=== PATIENT | female | born 1940 | race Caucasian/White ===

== ENCOUNTER → 2023-04-02 11:20 | Outpatient (CLI) | payer MEDICARE, BC, SELFPAY ==
--- NOTE | ~2023-04-02 | CT_ITS ---
CT Scan of the Chest without Contrast: Clinical Indication: Pulmonary nodules Technique: Contiguous sections were acquired throughout the chest without intravenous contrast. Dose reduction technique was used on this scan by utilizing automated exposure control and iterative recon struction technique. The dose-length product (DLP) was 171.28 mGy-cm. Findings: There is no evidence of any significant mediastinal, hilar or axillary lymphadenopathy. There are ath erosclerotic ossifications of the aorta and coronary arteries. Small pericardial effusion present. No pleural effusions. There are multiple right apical pulmonary nodules, measuring up to 6 mm in diameter. There are severa l tiny left apical pulmonary nodules. There is mild bibasilar chronic interstitial change. Images through the upper abdomen reveal no abnormalities. There are compression fracture deformity is of T4, T7, and T11. Impression: Multiple biapical pulmonary nodules, right more numerous and larger than left, with largest nodule me asuring approximately 6 mm in diameter. Comparison with any prior exams would be useful to assess for chronicity of these nodules. Otherwise, according to Fleischner Society criteria, for a low-risk pat ient, recommend follow-up CT scan at 3-6 months, then consider additional 18-[address] For a high- risk patient, follow-up CT scans at 3-6 months, and at 18-24 months, are recommended. Compression fractures of T4, T7, and T11, age-indeterminate. Small pericardial effusion. Mild bibasilar chronic interstitial change. Reviewed, dictated and finalized at [facility]. [employer] Impression: Multiple biapical pulmonary nodules, right more numerous and larger than left, with largest nodule measuring approximately 6 mm in diameter. Comparison with a ny prior exams would be useful to assess for chronicity of these nodules. Other carter, according to Fleischner Society criteria, for a low-risk patient, recomme nd follow-up CT scan at 3-6 months, then consider additional 18-[address] Fo r a high-risk patient, follow-up CT scans at 3-6 months, and at 18-24 months, a re recommended. Compression fractures of T4, T7, and T11, age-indeterminate. Small pericardial effusion. Mild bibasilar chronic interstitial change.
== END ==
PROVIDERS: PCP Nurse Practitioner Family; Visit Provider Nurse Practitioner Family
DX: R91.8 Other nonspecific abnormal finding of lung field (principal); I31.39 Other pericardial effusion (noninflammatory); J84.9 Interstitial pulmonary disease, unspecified
CPT/HCPCS: 71250

== ENCOUNTER 2023-05-04 10:55 | Emergency (ER) | payer MEDICARE, BC, SELFPAY ==
--- NOTE | ~2023-05-04 | XR_ITS ---
EXAMINATION: XR shoulder LT min 2V INDICATION: Left shoulder pain, fall one month ago TECHNIQUE: Four views of the left shoulder are submitted. COMPARISON: None FINDINGS: Normal alignment. No fracture. 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 Soft tissues are unremarkable. IMPRESSION: 1. No acute osseous abnormality. Reviewed, dictated and finalized at location B. 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
[2023-05-04 11:27] VITALS: BP 107/93; PULSE 108; RESP 18; TEMP 36.3; O2SAT 100
--- NOTE | 2023-05-04 11:56 | ED.UPPEXIN ---
HPI - Extremity Injury (Upper) General Chief Complaint: Extremity Injury, Upper Stated Complaint: upper extremity pain/fall 1mo ago Time Seen by Provider: 05/04/23 11:46 Source: patient and RN notes reviewed Mode of arrival: wheelchair Limitations: no limitations History of Present Illness HPI narrative: Patient presents today complaining of left shoulder pain x1 month. Patient fall 1 month ago injuring her shoulder. Denies numbness or tingling. Reports radiation of pain at times down to her elbow. She also reports decreased sleep due to the pain. Currently rates her pain 10/25 and has been taking Tylenol without much relief. Related Data Home Medications Medication Instructions Recorded Confirmed clonidine HCl 0.1 mg tablet mg 05/04/23 clonidine HCl 0.2 mg tablet mg 05/04/23 furosemide 40 mg tablet mg 05/04/23 gabapentin 300 mg capsule mg 05/04/23 insulin glargine 100 unit/mL unit subcut 05/04/23 subcutaneous solution (Lantus U-100 Insulin) insulin regular hum U-500 conc 500 unit subcut 05/04/23 unit/mL(3 mL) subcut pen (Humulin R U-500 (Conc) Insulin Kwikpen) labetalol 200 mg tablet mg 05/04/23 omeprazole 20 mg capsule,delayed mg 05/04/23 release omeprazole 20 mg capsule,delayed mg 05/04/23 release ropinirole 0.25 mg tablet mg 05/04/23 rosuvastatin 10 mg tablet mg 05/04/23 semaglutide 1 mg/dose (4 mg/3 mL) mg subcut 05/04/23 subcutaneous pen injector (Ozempic) sertraline 50 mg tablet mg 05/04/23 simvastatin 10 mg tablet mg 05/04/23 spironolactone 25 mg tablet mg 05/04/23 Allergies Allergy/AdvReac Type Severity Reaction Status Date / Time codeine Allergy Mild Unknown Verified 05/04/23 11:51 Penicillins Allergy Mild Unknown Verified 05/04/23 11:51 Review of Systems Review of Systems: CONSTITUTIONAL: Denies body aches, fever, chills, or sweats. EYES: Denies visual changes, redness, or discharge. ENT: Denies rhinorrhea, congestion, sore throat, or otalgia. CARDIOVASCULAR: Denies chest pain, palpitations, or edema. RESPIRATORY: Denies cough or dyspnea. GASTROINTESTINAL: Denies abdominal pain, nausea, vomiting, or diarrhea. GENITOURINARY: Denies dysuria or hematuria. SKIN: Denies rash, itching, or wounds. MUSCULOSKELETAL: Denies back pain, or myalgia.+ left shoulder pain NEUROLOGIC: Denies headache, numbness, tingling, or weakness. PSYCH: Denies depression or anxiety. [facility] Past Medical History Medical History (Updated 05/04/23 @ 12:29 by Minoo Ching, [facility], ) Diabetes High cholesterol Spinal cord stimulator status Comments At time of signature, I have reviewed and agree with nursing past medical, surgical, social and family history unless otherwise noted. Please see nursing chart for further information. There is no relevant family history pertinent to the presenting complaint Exam Narrative: GENERAL: Well-appearing, well-nourished, and in no acute distress. HEAD: Normocephalic, atraumatic. EYES: EOMI. No redness or drainage. Conjunctivae normal. ENT: Mucous membranes pink and moist. NECK: Normal AROM. CHEST: No respiratory distress. EXTREMITIES: Left shoulder: Tenderness anteriorly, posteriorly, and laterally without edema noted. No erythema or ecchymosis noted. No obvious deformity noted. Some mild tenderness extends distally down to mid humerus. Patient has range of motion to 90? anteriorly and laterally. Distal sensation intact. Capillary refill normal. Radial pulse normal. SKIN: Warm, dry, no rash. Capillary refill normal. Normal skin turgor. NEURO: No focal deficits. Alert and oriented x3. Gait steady. PSYCH: Normal affect. No signs of depression or anxiety. Course Course Level of Care: Express Care Visit Vital Signs Vital signs: Vital Signs Temperature 97.4 F L 05/04/23 11:27 Pulse Rate 108 H 05/04/23 11:27 Respiratory Rate 18 05/04/23 11:27 Blood Pressure 107/93 H 05/04/23 11:27 Pulse Oximetry 100
== END 2023-05-04 12:27 | disposition home or self-care (01) ==
PROVIDERS: Emergency Provider Nurse Practitioner; PCP Nurse Practitioner Family
DX: S49.92XA Unspecified injury of left shoulder and upper arm, initial encounter (principal); E11.9 Type 2 diabetes mellitus without complications; Z79.899 Other long term (current) drug therapy; Z79.4 Long term (current) use of insulin; W19.XXXA Unspecified fall, initial encounter
CPT/HCPCS: 73030; 99213; G0463

== ENCOUNTER 2023-06-30 13:05 | Outpatient (CLI) | payer MEDICARE, BC, SELFPAY ==
--- NOTE | ~2023-06-30 | US_ITS ---
EXAMINATION: US renal BI DATE: 06/30/2023 INDICATION: Stage III B chronic kidney disease TECHNIQUE: Multiple ultrasound grayscale images of the kidneys were obtained. COMPARISON: None. FINDINGS: The right kidney measures 10.4 x 4.7 x 5.4 cm. The left kidney measures cm. The kidneys demonstrate n ormal echogenicity. There is no hydronephrosis in either kidney. No stones identified. The bladder i s normal with bilateral ureteral jets visualized on color Doppler. IMPRESSION: 1. Normal kidneys without hydronephrosis. Reviewed, dictated and finalized at location A. 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
== END 2023-06-30 13:06 | disposition home or self-care (01) ==
LOC: ANHIMG 13:10
PROVIDERS: Visit Provider Internal Medicine Nephrology
DX: I12.9 Hypertensive chronic kidney disease with stage 1 through stage 4 chronic kidney disease, or unspecified chronic kidney disease (principal); N18.32 Chronic kidney disease, stage 3b; E11.9 Type 2 diabetes mellitus without complications; E78.5 Hyperlipidemia, unspecified
CPT/HCPCS: 76775

== ENCOUNTER 2023-09-26 17:30 | Emergency (ER) | payer MEDICARE, BC, SELFPAY ==
[2023-09-26 17:43] VITALS: BP 164/72; PULSE 101; RESP 18; TEMP 36.1; O2SAT 98
--- NOTE | 2023-09-26 18:02 | ED.WOUNDLAC ---
HPI - Wound/Laceration General Chief Complaint: Wound/Laceration Stated Complaint: surgical wound check Source: patient and family (daughter ) Mode of arrival: wheelchair Limitations: no limitations History of Present Illness HPI narrative: 83-year-old female presents to Express Care accompanied by her daughter for complaints of possible infection to a postsurgical site to right lower leg. Patient reports that she had a basal cell carcinoma removed from her right lower leg 4 days ago. Patient reports that 2 days ago she started noticing minimal redness from the area. Patient reports that she has been applying [id number] Neosporin ointment with little relief. Daughter reports that patient is not scheduled for a follow-up appointment with the surgeon. Patient denies fever, body aches, chills, nausea vomiting or diarrhea. Onset (ago): day(s) (2) Extremity Location: Right: lower leg Related Data Home Medications Medication Instructions Recorded Confirmed clonidine HCl 0.2 mg tablet mg 05/04/23 06/11/23 furosemide 40 mg tablet mg 05/04/23 06/11/23 gabapentin 300 mg capsule mg 05/04/23 06/11/23 insulin regular hum U-500 conc 500 unit subcut 05/04/23 06/11/23 unit/mL(3 mL) subcut pen (Humulin R U-500 (Conc) Insulin Kwikpen) labetalol 200 mg tablet mg 05/04/23 06/11/23 omeprazole 20 mg capsule,delayed mg 05/04/23 06/11/23 release ropinirole 0.25 mg tablet mg 05/04/23 06/11/23 rosuvastatin 10 mg tablet mg 05/04/23 06/11/23 semaglutide 1 mg/dose (4 mg/3 mL) mg subcut 05/04/23 06/11/23 subcutaneous pen injector (Ozempic) sertraline 50 mg tablet mg 05/04/23 06/11/23 simvastatin 10 mg tablet mg 05/04/23 06/11/23 spironolactone 25 mg tablet mg 05/04/23 06/11/23 Allergies Allergy/AdvReac Type Severity Reaction Status Date / Time codeine Allergy Mild Unknown Verified 06/10/23 14:47 Penicillins Allergy Mild Unknown Verified 06/10/23 14:47 morphine Allergy Hives Verified 09/26/23 17:47 Review of Systems Constitutional: Constitutional: Denies chills, Denies fatigue, Denies fever(s) and Denies weakness Cardiovascular: Cardiovascular: Denies chest pain Respiratory: Respiratory: Denies cough, Denies dyspnea and Denies wheezing Gastrointestinal: Gastrointestinal: Denies diarrhea, Denies nausea and Denies vomiting Integumentary/Breasts: Skin/Breast: Denies pruritus, Reports erythema, Denies rash and Denies skin ulcer Comments: Healing wound to right lower leg [facility] Past Medical History Medical History Diabetes High cholesterol Spinal cord stimulator status Social History Social History Smoking status: Never smoker Alcohol intake: unknown Substance use: unknown Do You Feel Safe in your Home?: Yes Lack of Transportation: No Lack of Food: Never True Concerned About Future Housing: No Difficulty Paying Gas/Electric Bills: No Difficulty Paying for Meds: No Currently Unemployed: No Education: Grade School Difficulty w/ Childcare or Family Care: No Occupation/Education: retired Gender identity (if verbalized by the patient): Female Comments At time of signature, I agree with nursing past medical, surgical, social and family history. There is no relevant family history pertinent to the presenting complaint. Exam Const: General: healthy appearing and no acute distress Nutritional Appearance: well nourished Orientation/consciousness: patient oriented x3 Limitations: no limitations HENMT: Head: normal to inspection Eyes: Conjunctivae: conjunctivae normal Neck: Neck: normal visual inspection Resp: Effort & Inspection: normal respiratory effort and not labored Auscultation: clear to auscultation bilaterally, no crackles, no rales, no rhonchi and no wheezes Cardio: Rate: regular rate Rhythm: regular rhythm Heart sounds: no murmurs Skin: General skin exam: normal
== END 2023-09-26 18:14 | disposition home or self-care (01) ==
PROVIDERS: Emergency Provider Nurse Practitioner Family; PCP Nurse Practitioner Family
DX: L03.115 Cellulitis of right lower limb (principal); Z79.4 Long term (current) use of insulin; E11.9 Type 2 diabetes mellitus without complications; E78.00 Pure hypercholesterolemia, unspecified
CPT/HCPCS: 99213; G0463

== ENCOUNTER 2023-09-28 14:51 | Emergency (ER) | payer MEDICARE, BC, SELFPAY ==
--- NOTE | ~2023-09-28 | US_ITS ---
EXAMINATION: US venous doppler LE RT DATE: 09/28/2023 16:10 INDICATION: pain/swelling/redness R lower leg . TECHNIQUE: Grayscale images without and with compression and Doppler images of the right lower extrem ity veins were obtained. COMPARISON: 03/12/2014 FINDINGS: The right common femoral vein, profunda (deep) femoral vein, femoral vein, popliteal vein, peroneal v ein, posterior tibial veins, gastrocnemius vein, and greater saphenous vein are patent. IMPRESSION: Patent right lower extremity veins. No evidence of deep venous thrombosis. Reviewed, dictated and finalized at location K.
[2023-09-28 14:54] VITALS: BP 100/50; PULSE 98; RESP 14; TEMP 36.8; O2SAT 98
--- NOTE | 2023-09-28 15:22 | ED.WOUNDLAC ---
HPI - Wound/Laceration General Chief Complaint: Wound/Laceration <LAKHWINDER Miller Last Filed: 09/28/23 15:39> Stated Complaint: wound <LAKHWINDER Miller Last Filed: 09/28/23 15:39> Time Seen by Provider: 09/28/23 15:25 <LAKHWINDER Miller Last Filed: 09/28/23 15:39> Focused HPI: Patient is an 83-year-old female who presents the ED with report of concern for cellulitis to right lower leg. Patient underwent basal cell carcinoma excision last Thursday on her right forrest. She began noticing redness surrounding the wound last week. She was seen in urgent care on Thursday and started on Keflex for cellulitis. States the redness has continued to worsen, streak down her leg. The area has also been warm and tender. She notes some swelling in her right lower leg. Denies fevers. GENERAL: Elderly, well-nourished, and in no acute distress. HEAD: Normocephalic, atraumatic. CHEST: Clear to auscultation. ?No respiratory distress. HEART: Regular rate and rhythm.? Pedal pulse intact. SKIN: 3x3cm area of skin biopsy site on R lower anterior forrest. No drainage or purulent material. Erythema surrounding skin biopsy site with lymphangitic streaking down near ankle. Focal TTP. Sensation intact. MSK: Trace pitting edema to R lower leg. Mild tenderness in R posterior calf. NEURO: ?Alert and oriented x3. Patient screened in triage and initial orders placed.? ?Additional care and disposition to be based upon?diagnostic testing and treatment. <LAKHWINDER Miller Last Filed: 09/28/23 15:39> Source: patient <LAKHWINDER Miller Last Filed: 09/28/23 15:39> Mode of arrival: ambulatory <LAKHWINDER Miller Last Filed: 09/28/23 15:39> Limitations: no limitations <LAKHWINDER Miller Last Filed: 09/28/23 15:39> History of Present Illness HPI narrative: Agree with HPI. <Mickey Phillip MD - Last Filed: 09/28/23 16:56> Related Data Home Medications: Home Medications Medication Instructions Recorded Confirmed clonidine HCl 0.2 mg tablet mg 05/04/23 06/11/23 furosemide 40 mg tablet mg 05/04/23 06/11/23 gabapentin 300 mg capsule mg 05/04/23 06/11/23 insulin regular hum U-500 conc 500 unit subcut 05/04/23 06/11/23 unit/mL(3 mL) subcut pen (Humulin R U-500 (Conc) Insulin Kwikpen) labetalol 200 mg tablet mg 05/04/23 06/11/23 omeprazole 20 mg capsule,delayed mg 05/04/23 06/11/23 release ropinirole 0.25 mg tablet mg 05/04/23 06/11/23 rosuvastatin 10 mg tablet mg 05/04/23 06/11/23 semaglutide 1 mg/dose (4 mg/3 mL) mg subcut 05/04/23 06/11/23 subcutaneous pen injector (Ozempic) sertraline 50 mg tablet mg 05/04/23 06/11/23 simvastatin 10 mg tablet mg 05/04/23 06/11/23 spironolactone 25 mg tablet mg 05/04/23 06/11/23 <Berta Rosales PA-C - Last Filed: 09/28/23 15:39> Allergies/Adverse Reactions: Allergies Allergy/AdvReac Type Severity Reaction Status Date / Time codeine Allergy Mild Unknown Verified 09/28/23 16:51 Penicillins Allergy Mild Unknown Verified 09/28/23 16:51 morphine Allergy Hives Verified 09/28/23 16:51 <Berta Rosales PA-C - Last Filed: 09/28/23 15:39> Review of Systems Review of Systems: All systems reviewed & are unremarkable except as noted in HPI and below <Mickey Phillip MD - Last Filed: 09/28/23 16:56> Constitutional: Constitutional: Reports no additional constitutional complaints <Mickey Phillip MD - Last Filed: 09/28/23 16:56> Cardiovascular: Cardiovascular: Reports no additional cardiovascular complaints <Mickey Phillip MD - Last Filed: 09/28/23 16:56> Respiratory: Respiratory: Reports no additional respiratory complaints <Mickey Phillip MD - Last Filed: 09/28/23 16:56> Musculoskeletal: Musculoskeletal: Reports no additional musculoskeletal complaints <Mickey Phillip MD - Last Filed: 09/28/23 16:56> Integumentary/Breasts: Skin/Breast: Reports erythema,
[2023-09-28 15:47] LABS: Basophils Absolute Auto 0.1 K/mm3 (0.0-0.1); Basophils Percent Auto 0.6 % (0.2-1.2); Eosinophils Absolute Auto 0.2 K/mm3 (0-0.3); Eosinophils Percent Auto 2.3 % (0-4.4); Hematocrit 35.4 % (37.0-47.0); Hemoglobin 11.6 g/dL (12.0-15.0); Immature Granulocyte Absolute 0.09 K/mm3 (0.00-0.031); Lymphocytes Percent Auto 26.2 % (18.3-44.2); Mean Corpuscular HGB Conc 32.8 g/dl (32-36); Mean Corpuscular Hemoglobin 28.1 pg (26-34); Mean Corpuscular Volume 85.7 fl (80-100); Mean Platelet Volume 9.6 fl (7.4-10.4); Monocytes Absolute Auto 0.7 K/mm3 (0.1-0.6); Monocytes Percent Auto 7.6 % (2.6-8.5); Neutrophils Absolute Auto 5.5 K/mm3 (1.3-6.7); Neutrophils Percent Auto 62.3 % (45.5-73.1); Platelet Count Result 262 k/mm3 (150-375); Red Blood Count 4.13 M/mm3 (4.2-5.4); Red Cell Distribution Width 14.4 % (11.5-14.5); White Blood Count 8.8 K/mm3 (4.5-10.0)
[2023-09-28 15:58] LABS: Anion Gap 11 mmol/L (4-12); Blood Urea Nitrogen 28 mg/dL (7-17); Calcium 8.7 mg/dL (8.4-10.2); Carbon Dioxide 19 mmol/L (22-30); Chloride 109 mmol/L (98-107); Estimated CRCL calculation 26 ml/min; Estimated Glomerular Filt Rate 33; Glucose 155 mg/dL (65-110); Potassium 4.3 mmol/L (3.4-5.0); Sodium 139 mmol/L (137-145)
[2023-09-28 16:21] LABS: Erythrocyte Sedimentation Rate 57 mm/hr (0-20)
[2023-09-28 16:56] VITALS: BP 147/60; PULSE 90; RESP 16; O2SAT 99
== END 2023-09-28 17:36 | disposition home or self-care (01) ==
PROVIDERS: Physician Assistant; Emergency Provider Emergency Medicine; PCP Nurse Practitioner Family
DX: L03.115 Cellulitis of right lower limb (principal); E11.9 Type 2 diabetes mellitus without complications; E78.00 Pure hypercholesterolemia, unspecified; R22.41 Localized swelling, mass and lump, right lower limb; Z96.82 Presence of neurostimulator; Z79.85 Long-term (current) use of injectable non-insulin antidiabetic drugs; Z79.4 Long term (current) use of insulin
CPT/HCPCS: 36415; 80048; 85025; 85652; 86140; 87070; 87205; 93971; 99284

== ENCOUNTER 2024-06-21 09:12 | Emergency (ER) | payer MEDICARE, BC, SELFPAY ==
--- NOTE | ~2024-06-21 | XR_ITS ---
EXAMINATION: XR foot LT min 3V DATE: 06/21/2024 14:50 INDICATION: Left foot pain with suspected gout flareup TECHNIQUE: Dorsoplantar, two oblique and lateral views of the left foot were obtained. COMPARISON: None. FINDINGS: Bone alignment is normal. There are subarticular lucencies with sclerotic margins and collapsed porti on of the overlying articular surfaces at the heads of the second and third metatarsals and at the ba se of the third proximal phalanx. There is mild osteoarthritis at the first metatarsophalangeal and a few of the tarsal metatarsal and interphalangeal joints. Moderate-sized plantar calcaneal spur. Pro minent soft tissue swelling at the dorsum of the foot and medial lateral aspect of the hindfoot. IMPRESSION: 1. Flattening of the articular cortices and prominent underlying subarticular lucencies at the heads of the second and third metatarsals and base of the third proximal phalanx. This could be related to erosion such as in the setting of gout or due to chronic osteonecrosis with articular surface collaps e and secondary osteoarthritis with degenerative cystic change. Reviewed, dictated and finalized at location A. ASSEMBLY LINE MACHINE OPERATOR IMPRESSION: 1. Flattening of the articular cortices and prominent underlying subarticular l ucencies at the heads of the second and third metatarsals and base of the third proximal phalanx. This could be related to erosion such as in the setting of g out or due to chronic osteonecrosis with articular surface collapse and seconda ry osteoarthritis with degenerative cystic change.
[2024-06-21 09:14] VITALS: BP 146/64; PULSE 97; RESP 16; TEMP 36.4; O2SAT 96
--- OUTSIDE RECORDS SUMMARY | 2024-06-21 09:49 | XMS_ITS | Referral Summary ---
Author Organization [facility] Address [address] [place] [address] Care Team Providers Care Multi Slide Machine Tender Name Role Phone Lisset Luis PAVER INSTALLER Primary Care Provider [phone] Shani Power MD Unavailable Gabriele Doshi MD Unavailable [phone] Encounters Date Type Department Care Team Description 03/31/2024 Orders Only [facility] Medical Group Diabetes and Endocrinology [address] [place] [phone] Provider, MD Eliud 03/22/2024 2:00 PM TREE CARE FOREMAN Clinical Support [facility] Movement Disorders [address] [place] [phone] Tremor 03/22/2024 1:00 PM TREE CARE FOREMAN Office Visit [facility] Movement Disorders [address] [place] [phone] Davis Melo MD Essential tremor (Primary Dx); Type 2 diabetes mellitus with diabetic polyneuropathy, with long-term current use of insulin (HCC) from Last 3 Months Allergies Active Allergy Reactions Criticality Noted Date Comments Amlodipine Rash Medium 06/01/2015 Other reaction(s): LE edema Amoxicillin Hives Medium 09/11/2013 Atorvastatin Rash Medium 06/01/2015 Other reaction(s): muscle pain Other reaction(s): muscle pain Erythromycin Rash Medium 06/01/2015 Other reaction(s): itching Exenatide Rash Medium 06/01/2015 Other reaction(s): LE edema Hydralazine Rash,Other (See comments) Medium 06/01/2015 Other reaction(s): LE edema Empagliflozin Nausea only Low 01/25/2024 Losartan Rash Medium 06/01/2015 Other reaction(s): leg cramps Metformin Cough Medium 06/01/2015 Other reaction(s): diarrhea Other reaction(s): diarrhea Morphine Hives Medium 09/11/2013 Penicillins Hives Medium 02/17/2014 Pioglitazone Unknown Low 06/01/2015 Other reaction(s): LE edema Prednisone Hives Medium 06/01/2015 Other reaction(s): face breaks out, tongue blisters Rosiglitazone Rash Medium 06/01/2015 Other reaction(s): LE edema Rosuvastatin Muscle pain Medium 03/26/2023 Medications aspirin 325 mg tablet Take 1 tablet (325 mg total) by mouth daily Active furosemide (LASIX) 40 mg tablet Take 1 tablet (40 mg total) by mouth daily 3 Active omeprazole (PriLOSEC) 20 mg capsule Take 1 capsule (20 mg total) by mouth daily 2 Active sertraline (ZOLOFT) 50 mg tablet Take 2 tablets (100 mg total) by mouth nightly 3 Active spironolactone (ALDACTONE) 25 mg tablet Take 2 tablets (50 mg total) by mouth daily 2 Active TechLITE Insulin Syringe 1 mL 31 gauge x 15/64 syringe USE TO INJECT INSULIN THREE TIMES DAILY AND NEEDED 3 Active insulin syringe-needle U-100 (Monoject Insulin Syringe) 0.5 mL 31 gauge x 5/16 syringe as directed 6 Active cloNIDine (CATAPRES) 0.2 mg tablet Take 1 tablet (0.2 mg total) by mouth 2 (two) times a day 3 Active diphenhydrAMINE 25 mg capsule Take 2 tablet/capsule (50 mg total) by mouth nightly Active rOPINIRole (REQUIP) 0.25 mg tablet Take 1 tablet (0.25 mg total) by mouth 3 (three) times a day Active insulin regular U-500 (HumuLIN R U-500) 500 unit/mL (3 mL) CONCENTRATED pen for injection Take before meals, for sugars under 150, take 25 units For sugars over 200, take 30 units For sugars over 250, take 35 units For sugars over 300, take 40 units For sugars over 350, take 45 units For sugars over 400, take 50 units 9 mL 11 3 Active labetaloL (NORMODYNE,TRANDA TE) 200 mg tablet Take 1 tablet (200 mg total) by mouth 2 (two) times a day Active imiquimod (ALDARA) 5 % cream APPLY TO LEG ONCE DAILY AT NIGHT THURSDAY-THURSDAY FOR 6 WEEKS. APPLY WITH A 2 CENTIMETER PERIMETER AROUND LESION 4 Active Ozempic 2 mg/dose (8 mg/3 mL) pen injector injection INJECT 2 MG UNDER THE SKIN ONCE A WEEK 3 mL 6 4 Active Acheive [employer] Verio test strips strip TEST BLOOD SUGAR FOUR TIMES DAILY BEFORE A MEAL AND AT BEDTIME 4 Active OneTouch Verio Flex meter misc USE TO TEST FOUR TIMES DAILY 4 Active fluconazole (DIFLUCAN) 150 mg tablet 4 Active Acheive CCATouch Delica Plus Lancet 33 gauge misc TEST BLOOD SUGAR FOUR TIMES DAILY BEFORE A MEAL AND AT BEDTIME 4 Active SSD 1 % cream APPLY TOPICALLY TO THE AFFECTED AREA DAILY 4 Active simvastatin (ZOCOR) 20 mg tablet TAKE 1/2 TABLET BY MOUTH EVERY NIGHT AT BEDTIME 4 Active gabapentin (NEURONTIN) 300 mg capsule Take 300 mg in the morning and 900 mg in the evening. Every week can increase the morning dose by 300 mg to a max of 900 mg in the morning 90 capsule 2 4 Active TRUEplus Pen Needle 31 gauge x 5/16 needleIndications :Type 2 diabetes mellitus without complication, unspecified whether long-term insulin use (HCC) USE TO INJECT THREE TIMES DAILY DIRECTED 100 each 11 4 Active Active Problems Problem Noted Date Diagnosed Date Essential tremor 03/22/2024 Assessment & Plan (03/22/2024 2:11 PM TREE CARE FOREMAN): Patient presents with 5-years of progressive, bilateral, hand tremor which worsens with action / postural maneuvers but does not bother her at rest. This tremor affects some of her daily abilities (writing, painting) but she is able to manage her ADLs/iADLs. UPDRS is scored at 41 with features consistent with both an essential tremor (postural + intention tremor) but also possible early Parkinsonian features (balance, bradykinesia) which may be confounded by her history of stroke. At this time we will treat her essential tremor by increasing her Gabapentin gradually, starting at 300 mg in the AM / 900 mg in the PM and increasing weekly. Radiculopathy, lumbosacral region 07/07/2023 Spinal stenosis of lumbar re gion with neurogenic claudication 07/07/2023 Hypertension associated with type 2 diabetes maykel litus 04/14/2023 Assessment & Plan (01/25/2024 11:34 AM CDT): Chronic problem. Controlled on current labetalol 200mg bid, clonidine 0.2mg bid, spironolactone 25mg daily Mixed diabetic hyperlipidemi a associated with type 2 diabetes mellitus 04/14/2023 Assessment & Plan (01/25/2024 11:34 AM CDT): Chronic problem. Currently taking Simvastatin 10mg. Last lipid panel: 02/27/23 LDL=67, CS=291. Renal artery stenosis 04/14/2023 CKD stage 3 due to type 2 diabetes mellitus 03/19 Chronic heart failure with p reserved ejection fraction (CMS/HCC) 04/14/2023 History of CVA (cerebrovascular accident) 2022 Type 2 diabetes mellitus 03/17/2023 Assessment & Plan (01/25/2024 12:59 PM CDT): Chronic problem. A1c uncontrolled but improved slightly from 11.5% 07/28/23 to now 10.7%. not to take insulin if not eating. Dtr will check BG & administer insulin to improve compliance. Current medications: Ozempic 2mg weekly Humulin U500, before meals (BK/DN) , as follows: For sugars under 150, take 30 units For sugars over 200, take 35 units For sugars over 250, take 40 units For sugars over 300, take 50 units For sugars over 350, take 60 units For sugars over 400, take 70 units Before Lunch: For sugars under 150, take 15 units For sugars over 200, take 20 units For sugars over 250, take 25 units For sugars over 300, take 30 units For sugars over 350, take 35 units For sugars over 400, take 40 units UTD on labs. DM eye exam: due Discussed with Ceci GASTELUM METER: Strive for regular exercise (30min most days) and diet (get at least 4-5 servings of fruit and veggies daily, avoid processed foods, increase lean protein intake and decrease carb portions as well as fruit juices, regular soda & desserts). Watch carbs and simple sugars. Check the blood sugar: 3 times daily. Check the feet daily for skin breakdown and infection. Assessment & Plan (07/28/2023 5:48 PM CDT): Continues to be very poorly controlled mostly due to poor compliance with diet Insulin regimen adjusted with U 500 as follows Humulin U500, before meal each meal: For breakfast and dinner : For sugars under 150, take 30 units For sugars over 200, take 35 units For sugars over 250, take 40 units For sugars over 300, take 50 units For sugars over 350, take 60 units For sugars over 400, take 70 units For Lunch : For sugars under 150, take 15 units For sugars over 200, take 20 units For sugars over 250, take 25 units For sugars over 300, take 30 units For sugars over 350, take 35 units For sugars over 400, take 40 units If it is meal time and you are not eating, take the insulin, using the lunch time sliding scale Stay on Ozempic If the sugars are staying elevated over 300-400, for more than 12-24 hours and you are sick, vomiting or with any shortness of breath, chest pain or any other symptoms you should go to the ER Send me a message via My Chart every other week, to let me know how things are going Assessment & Plan (03/17/2023 4:05 PM CDT): Hba1c was over 11 today, indicating very poor DM control Goal Hba1c under 8 and blood glucose 120-180 range was explained Diet and exercise were advised Prevention and treatment of hyypoglcyemia were discussed with the patient Blood glucose monitoring : pt not interested in CGM, has had problems with both , before . Continue with finger sticks ac and hs Adjustment to medications: Stop Lantus and Humalog Start Humulin U500, before meals , as follows: For sugars under 150, take 25 units For sugars over 200, take 30 units For sugars over 250, take 35 units For sugars over 300, take 40 units For sugars over 350, take 45 units For sugars over 400, take 50 units Sensorineural hearing loss (SNHL) of both ears 0 01/30/2023 Social History Tobacco Use Types Packs/Day Years Used Date Smoking Tobacco: Never Smokeless Tobacco: Never AUDIT-C Answer Date Recorded Q1: How often do you have a drink containing alcohol? Never 07/07/2023 Q2: How many drinks containi ng alcohol do you have on a typical day when you are drinking? Patient does not drink Frequency of Binge Drinking Not on file 06/19 PHQ-2 Answer Date Recorded PHQ-2 Total Score (If total score is 3 or more points, staff should administer the PHQ-9) 0 03/17/2023 Comments Unknown Sex and Gender Information Value Date Recorded Sex Assigned at Not on file Legal Sex Female 3:27 AM TREE CARE FOREMAN Gender Identity Not on file Sexual Orientation Not on file Last Filed Vital Signs Vital Sign Reading Time Taken Comments Blood Pressure 177/69 03/22/2024 1:00 PM TREE CARE FOREMAN Pulse 96 03/22/2024 1:00 PM TREE CARE FOREMAN Temperature 36.4 ??C (97.5 ??F) 03/22/2024 1:00 PM CS T Respiratory Rate 16 01/25/2024 11:39 AM CDT Oxygen Saturation 97% 12/01/2023 2:39 PM CDT Inhaled Oxygen Concentration - - Weight 76.2 kg (168 lb) 03/22/2024 1:00 PM TREE CARE FOREMAN Height 162.6 cm (5' 4.02 ) 01/25/2024 11:39 AM C DT Body Mass Index 28.82 01/25/2024 11:39 AM CDT Plan of Treatment Not on file Procedures Procedure Name Priority Date/Time Associated Diagnosis Comments HM DIABETES EYE EXAM Routine 03/14/2024 7:33 AM CDT POCT HEMOGLOBIN A1C Routine 01/25/2024 1 1:45 AM CDT Type 2 diabetes mellitus with hyperglycemia, with long-term current use of insulin (HCC) ALBUMIN CREATININE RATIO, URINE Routine 03/11/2023 12:31 PM CDT COMPREHENSIVE METABOLIC PANEL Routine 02/27/2023 8:44 AM CDT LIPID PANEL Routine 02/27/2023 8:44 AM CDT from Last 3 Months or Most Recently Relevant to Health Maintenance Results * DIABETES EYE EXAM (03/14/2024 7:33 AM CDT) Historical Provider HEALTH MAINTENANCE Final Result * (ABNORMAL) POCT hemoglobin A1c (01/25/2024 11:45 AM CDT) Hemoglobin A1C, POC 10.7 4.0 - 5.6 % Blood 01/25/2024 11:4 5 AM CDT Heaven Francois NP POINT OF CARE TEST ORDERA BLES Final Result * Albumin Creatinine Ratio, Urine (03/11/2023 12:31 PM CDT) SCRIBED Creatinine, Urine 54 20 - 275 [facility] S[facility] Microalbumin 0.9 NA - NA [facility] S[facility] Microalb/Creat Ratio 17 <30 - NA [facility] Urine 03/11/2023 12:3 1 PM CDT Historical Provider LAB URINE ORDERABLES Edit ed Result - Final [facility] * (ABNORMAL) Lipid panel (02/27/2023 8:44 AM CDT) SCRIBED Cholesterol, Total 153 <200 - NA [facility] HDL 46 >=50 - NA [facility] S[facility] LDL 67 <100 - NA [facility] Triglycerides 332 <150 - NA [facility] Blood 02/27/2023 8:44 AM CDT us Historical Provider LAB BLOOD ORDERABLES Edit ed Result - Final [facility] * (ABNORMAL) Comprehensive metabolic panel (02/27/2023 8:44 AM CDT) SCRIBED Sodium 138 135 - 146 mmol/L [facility] Potassium 4.8 3.5 - 5.3 mmol/L [facility] S[facility] Chloride 102 98 - 110 mmol/L [facility] S[facility] Carbon Dioxide 27 20 - 32 mmol/L [facility] Urea Nitrogen (BUN) 33(A) 7 - 25 mg/dl [facility] S[facility] Creatinine 1.31(A) 0.60 - 0.95 mg/dl [facility] Glucose 217(A) 65 - 99 mg/dl [facility] S[facility] Calcium 8.7 8.6 - 10.4 mg/dl [facility] S[facility] Bilirubin 0.5 0.2 - 1.2 mg/dl [facility] S[facility] Plasma Protein 6.3 6.1 - 8.1 g/dl [facility] S[facility] Albumin 3.9 3.6 - 5.1 g/dl [facility] Alkaline Phosphatase 93 37 - 153 Units/L [facility] Alanine Transaminase (ALT) 41(A) 6 - 29 Units/L [facility] Aspartate Transaminase (AST) 27 10 - 35 Units/L [facility] SCRIB[facility] eGFR in NonAfrican Luxembourger 41 >=60 - NA [facility] Blood 02/27/2023 8:44 AM CDT Historical Provider LAB BLOOD ORDERABLES Edit ed Result - Final [facility] from Last 3 Months or Most Recently Relevant to Health Maintenance Insurance MEDICARE BLUE ACCESS OOS MEDICARE BLUE ACCESS OOS Care Teams Multi Slide Machine Tender Relationship Specialty Start Date End Date Lisset Luis NP PCP - General Family Medicine 04/14/23 [place] [address] [address] Consulting Physician Endocrinology Diabetes & Metabolism 08/12/23 [place] [address] [address] Referring Physician Nephrology 01/25/24
--- OUTSIDE RECORDS SUMMARY | 2024-06-21 09:49 | XMS_ITS | Encounter Summary ---
Author Organization [facility] Address [facility] [facility] [place] [address] [place] [address] Care Team Providers Care Conveyor Man Name Role Phone Lisset Lusi [facility]- Primary Care Provider + Raymond Brunson MD Unavailable [phone] Gabriele Doshi MD Unavailable [phone] Encounter Details Date Type Department Care Team (Late st Contact Info) Description 12/25/2023 MyChart Message Enc [facility] Medical Group Family & Internal Medicine [address] [address] Lisset Luis [address] [place] [address] urine culture Social History Tobacco Use Types Packs/Day Years Used Date Smoking Tobacco: Never Smokeless Tobacco: Never Alcohol Use Standard Drinks/Week Comments Not Currently 0 (1 standard drink = 0.6 oz pur e alcohol) Humiliation, Afraid, Rape, and Kick questionnair e Answer Date Recorded Within the last year, have y ou been afraid of your partner or ex-partner? No 02/02/2023 Within the last year, have y ou been humiliated or emotionally abused in other ways by your partner or ex-partner? No Within the last year, have y ou been kicked, hit, slapped, or otherwise physically hurt by your partner or ex-partner? No 02/02/2023 Within the last year, have y ou been raped or forced to have any kind of sexual activity by your partner or ex-partner? No 02/02/2023 Overall Financial Resource Strain (CARDIA) Answe r Date Recorded How hard is it for you to pa y for the very basics like food, housing, medical care, and heating? Not hard at all 02/02/2023 PHQ-2 Answer Date Recorded Patient Health Questionnaire-2 Score 0 07/22/2023 Hunger Vital Sign Answer Date Recorded Within the past 12 months, y ou worried that your food would run out before you got the money to buy more. Never true 02/03/20 23 Within the past 12 months, t he food you bought just didn't last and you didn't have money to get more. Never true 02/02/2023 PRAPARE - Transportation Answer Date Re corded In the past 12 months, has l ack of transportation kept you from medical appointments or from getting medications? No 01/16 In the past 12 months, has l ack of transportation kept you from meetings, work, or from getting things needed for daily living? No 02/02/2023 Housing Stability Vital Sign Answer Alex e Recorded In the last 12 months, was t here a time when you were not able to pay the mortgage or rent on time? No 02/02/2023 In the last 12 months, how many places have you lived? 2 02/02/2023 In the last 12 months, was t here a time when you did not have a steady place to sleep or slept in a fpc (including now)? No 02/02/2023 Comments No Sex and Gender Information Value Date Recorded Sex Assigned at Not on file Legal Sex Female 8:19 PM CDT Gender Identity Not on file Sexual Orientation Not on file documented as of this encounter Functional Status * Are you deaf or do you have serious difficulty hearing Answer Date of Assessment Author Status Yes 02/02/2023 6:35 PM CDT Anahy Vanegas R N Active * Are you blind or do you have serious difficulty seeing, even when wearing glasses? Answer Date of Assessment Author Status No 02/02/2023 6:35 PM CDT Anahy Vanegas R N Active * Do you have serious difficulty walking or climbing stairs? Answer Date of Assessment Author Status Yes 02/02/2023 6:35 PM CDT Anahy Vanegas R N Active * Do you have difficulty dressing or bathing? Answer Date of Assessment Author Status Yes 02/02/2023 6:35 PM CDT Anahy Vanegas R N Active * Because of a physical, mental, or emotional condition, do you have difficulty doing errands alone such as visiting a doctor's office or shopping? Answer Date of Assessment Author Status Yes 02/02/2023 6:35 PM CDT Anahy Vanegas R N Active documented as of this encounter Mental Status * Because of a physical, mental, or emotional condition, do you have serious difficulty concentrating, remembering, or making decisions? Answer Entry Date Author Status No 02/02/2023 6:35 PM CDT Anahy Vanegas R N Active documented in this encounter Progress Notes * JENI Haynes - 12/28/2023 5:08 PM CDT The urine culture shows primarily normal bacteria. As long as she is not having fevers, flank pain,pain/burning with urination, blood in urine, feeling like she needs to urinate, but can't or going frequently small amounts, I would recommend holding off on antibiotics for now. If she develops these symptoms, please let me know * JENI Haynes - 12/28/2023 11:10 AM CDT In the office the patient said she was no longer having symptoms. I am waiting for the urine culture to decide if antibiotics are needed. Typically if there are no symptoms present, treatment is not recommended. I would increase water intake and try to control sugars * Jackie Hall RN - 12/28/2023 10:46 AM CDT Please advise. documented in this encounter Plan of Treatment Upcoming Encounters Date Type Department Care Team (Late st Contact Info) Description 07/04/2024 10:40 AM MALE IMPERSONATOR Office Visit [facility] Family & Internal Medicine [facility] [address] [place] [address] Lisset Luis FNP-BC [address] [facility], [address] [address] 09/12/2024 10:40 AM CDT Office Visit [facility] Family Internal [facility] [address] [place] [address] Lisset Luis FNP-BC [address] [facility], [address] [address] documented as of this encounter Visit Diagnoses Not on filedocumented in this encounter Care Teams Conveyor Man Relationship Specialty Start Date End Date Lisset Luis FNP-BC [address] [facility], [address] [address] PCP - General Nurse Practitioner Family 01/27/23 Raymond Brunson MD [address] [address] CARDIOVASCULAR DISEASE 06/04/23 Gabriele Doshi MD [address] [facility] [address] [place] [address] Referring Physician NEPHROLOGY 06/04/23 documented as of this encounter
--- OUTSIDE RECORDS SUMMARY | 2024-06-21 09:49 | XMS_ITS | Encounter Summary ---
Author Organization [facility] Address [facility] [place] [address] [place] [address] Care Team Providers Care Enlisted Aircrew/Aerial Observer/Gunner Name Role Phone Lisset Luis [facility] Primary Care Provider + Raymond Brunson MD Unavailable [phone] Gabriele Doshi MD Unavailable [phone] Encounter Details Date Type Department Care Team (Late st Contact Info) Description 05/20/2024 MyCOpenDrivet Message Enc [facility] Medical Group Family & Internal Medicine [address] [address] Lisset Luis [address] [place] [address] update on my mother Social History Tobacco Use Types Packs/Day Years [...] place to sleep or slept in a correction (including now)? No 02/02/2023 Comments No Sex [...] Assessment Author Status No 02/02/2023 6:35 PM Anahy Menendez R N Active * Do you have serious difficulty walking or climbing stairs? Answer Date of Assessment Author Status Yes 02/02/2023 6:35 PM Anahy Menendez R N Active * Do you have difficulty dressing or bathing? Answer Date of Assessment Author Status Yes 02/02/2023 6:35 PM Anahy Menendez R N Active * Because of a physical, mental, or emotional condition, do you have difficulty doing errands alone such as visiting a doctor's office or shopping? Answer Date of Assessment Author Status Yes 02/02/2023 6:35 PM Anahy Menendez R N Active documented as of this encounter Mental Status * Because of a physical, mental, or emotional condition, do you have serious difficulty concentrating, remembering, or making decisions? Answer Entry Date Author Status No 02/02/2023 6:35 PM Anahy Menendez R N Active documented in this encounter Progress Notes * JENI Haynes - 05/23/2024 10:43 AM CST These are always tough situations. Even though she has been diagnosed as having mild cognitive decline, unless she has been deemed incapable of making decisions, she is still able to direct her care (I.e. refusing medications and office visits). We could refer her to care coordination who can contact her regularly about taking medications and health management which may ease some burden on the family. Re: blood sugars. I would recommend sending her readings to her liquor grinder mill operator. Unfortunately, if she is not taking her insulin it will be almost impossible to get them better controlled, especially if she is not following diet restrictions. I know this is tough for you and your family. Right now, we can only stress that if she is not controlling her blood sugars and blood pressure with hermedications and seeing specialists then it is only a matter of time before she has another stroke, heart attack, kidney failure requiring dialysis, or . Palliative care may be beneficial if she has decided she no longer wants to take medications or see specialist providers. IC RELATIONS SPECIALIST * Jackie Hall RN - 05/20/2024 3:34 PM CST Please review blood glucose numbers. IC RELATIONS SPECIALIST * Jackie Hall RN - 05/20/2024 11:43 AM CST Please review and advise IC RELATIONS SPECIALIST documented in this encounter Plan of Treatment Upcoming Encounters Date Type Department Care Team (Late st Contact Info) Description 07/04/2024 10:40 AM PUBLIC RELATIONS SPECIALIST Office Visit [facility] Family & Internal [address] [phone] Lisset Luis FNP-BC [address] [place] [address], [address] [phone] 09/12/2024 10:40 AM CDT Office Visit [facility] Internal [address] [address] Lisset Luis FNP-BC [address] [place] [address], [address] [phone] documented as of this encounter Visit Diagnoses Not on filedocumented in this encounter Care Teams Enlisted Aircrew/Aerial Observer/Gunner Relationship Specialty Start Date End Date Lisset Luis FNP-BC [address] [place], [place] [address]ashish Brice, [address] [phone] PCP - General Nurse Practitioner Family 01/27/23 Raymond Brunson MD [address] [place] [place] [phone] CARDIOVASCULAR DISEASE 06/04/23 Gabriele Doshi MD [address] [facility] [address] [place] [address] Referring Physician NEPHROLOGY 06/04/23 documented as of this encounter
--- OUTSIDE RECORDS SUMMARY | 2024-06-21 09:49 | XMS_ITS | Encounter Summary ---
Author Organization [facility] Address [facility]6 [place] [address] [place] [address] Care Team Providers Care Bottle Blower Name Role Phone Lisset Luis [facility] Primary Care Provider + Raymond Brunson MD Unavailable [phone] Gabriele Doshi MD Unavailable [phone] Encounter Details Date Type Department Care Team (Late st Contact Info) Description 01/13/2024 MyChart Message Enc [facility] Medical Group Family & Internal Medicine [address] [address] Lisset Luis [address] [place] [address] Jardiance Social History Tobacco Use Types Packs/Day Years [...] place to sleep or slept in a senior care (including now)? No 02/02/2023 Comments No Sex [...] Status Yes 02/02/2023 6:35 PM CDT Anahy Vanegas, Gem N Active * Are you blind or [...] encounter Progress Notes * JENI Haynes - 01/13/2024 3:05 PM CDT Noted. This medication would be beneficial for her kidneys as we discussed in the office and is recommended by her Business Center Attendant. I would recommend if she plans to not take it she discuss this at her next nephrology appt. Re: possible mini strokes, if she is having altered mental status, changes in speech, unilateral extremity weakness, difficulty talking or changes in mouth/facial droop, I would recommend going to the ER right away for evaluation. * Jackie Hall RN - 01/13/2024 1:48 PM CDT FYI Advise? documented in this encounter Plan of Treatment Upcoming Encounters Date Type Department Care Team (Late st Contact Info) Description 07/04/2024 10:40 AM AUTOMOTIVE ACCESSORY INSTALLER Office Visit [facility] Family & Internal Medicine [facility] [address] [place] [address] Lisset Luis [facility] [address], [address] [place] [address] 09/12/2024 10:40 AM CDT Office Visit [facility] Family & Internal Medicine [facility] [address] [place] [phone] Lisset Luis FNPYUE [address] [facility], [address] [address] documented as of this encounter Visit Diagnoses Not on filedocumented in this encounter Care Teams Bottle Blower Relationship Specialty Start Date End Date Lisset Luis FNPYUE [address] [address], [address] [place] [address] PCP - General Nurse Practitioner Family 01/27/23 Raymond Brunson MD [address] [address] CARDIOVASCULAR DISEASE 06/04/23 Gabriele Doshi MD 6812 [facility] 162 [address] [place] [address] Referring Physician NEPHROLOGY 06/04/23 documented as of this encounter
--- OUTSIDE RECORDS SUMMARY | 2024-06-21 09:49 | XMS_ITS | Encounter Summary ---
Author Organization [facility] Address [facility] [place] [address] [place] [address] Care Team Providers Care Wearing Apparel Presser Name Role Phone Lisset Luis [facility]- Primary Care Provider + Raymond Brunson MD Unavailable [phone] Gabriele Doshi MD Unavailable [phone] Encounter Details Date Type Department Care Team (Late st Contact Info) Description 08/20/2023 MyCExchange Labt Message Enc [facility] Medical Group Family & Internal Medicine [address] [address] Lisset Luis [address] [place] [address] Zoloft Social History Tobacco Use Types Packs/Day Years [...] place to sleep or slept in a alf (including now)? No 02/02/2023 Comments No Sex [...] R N Active documented in this encounter Plan of Treatment Upcoming Encounters Date Type Department Care Team (Late st Contact Info) Description 07/04/2024 10:40 AM LUMBER SORTER MACHINE Office Visit [facility] Family & Internal [address] [address] Lisset Luis FNP-BC [address] [facility], [address] [phone] 09/12/2024 10:40 AM CDT Office Visit [facility] Family & Internal Medicine [address] [address] Lisset Luis FNP-BC [address] [facility], [address] [phone] documented as of this encounter Visit Diagnoses Not on filedocumented in this encounter Care Teams Wearing Apparel Presser Relationship Specialty Start Date End Date Lisset Luis FNP-BC [address] [address], [address] [place] [address] PCP - General Nurse Practitioner Family 01/27/23 Raymond Brunson MD [address] [address] CARDIOVASCULAR DISEASE 06/04/23 Gabriele Doshi MD 6812 [facility] [address] [place] [address] Referring Physician NEPHROLOGY 06/04/23 documented as of this encounter
--- OUTSIDE RECORDS SUMMARY | 2024-06-21 09:49 | XMS_ITS | Encounter Summary ---
Author Organization [facility] Address [facility]6 [facility] [place] [address] [place] [address] Care Team Providers Care Casting Room Helper Name Role Phone Lisset Luis [facility] Primary Care Provider + Raymond Brunson MD Unavailable [phone] Gabriele Doshi MD Unavailable [phone] Encounter Details Date Type Department Care Team (Late st Contact Info) Description 12/02/2023 MyChart Message Enc [facility] Medical Group Family & Internal Medicine [address] [address] Lisset Luis [address], [address] [place] [address] [facility] referral Social History Tobacco Use Types Packs/Day Years [...] place to sleep or slept in a prison (including now)? No 02/02/2023 Comments No Sex [...] documented in this encounter Progress Notes * Fina Cormier MA - 12/03/2023 3:17 PM CDT [facility] Department of Neurology [address] [place] [address] Movement Disorder's clinic documented in this encounter Plan of Treatment Upcoming Encounters Date Type Department Care Team (Late st Contact Info) Description 07/04/2024 10:40 AM PRESS OPERATOR CARBON BLOCKS Office Visit [facility] Family & Internal Medicine [address] [address] Lisset Luis, [facility]-[address], [address] [address] 09/12/2024 10:40 AM CDT Office Visit [facility] Family & Internal Medicine [address] [phone] Lisset Luis [facility] [address] [facility] [address], [address] [place] [address] documented as of this encounter Visit Diagnoses Not on filedocumented in this encounter Care Teams Casting Room Helper Relationship Specialty Start Date End Date Lisset Luis FNP- [address] [address], [address] [place], [place] [id number] PCP - General Nurse Practitioner Family 01/27/23 Raymond Brunson MD [address] [address] CARDIOVASCULAR DISEASE 06/04/23 Gabriele Doshi MD [address] [address] [address] [place] [address] Referring Physician NEPHROLOGY 06/04/23 documented as of this encounter
--- OUTSIDE RECORDS SUMMARY | 2024-06-21 09:49 | XMS_ITS | Encounter Summary ---
Author Organization [facility] Address [facility]6 [facility] [place] [address] [place] [address] Care Team Providers Care Acoustical Engineer Name Role Phone Lisset Luis [facility] Primary Care Provider + aRymond Brunson MD Unavailable [phone] Gabriele Doshi MD Unavailable [phone] Encounter Details Date Type Department Care Team (Late st Contact Info) Description 03/19/2023 MyCWomen of Coffeet Message Enc [facility] Medical Group Family & Internal Medicine [address] [address] Lisset Luis [address] [place] [address] rosuvastatin Social History Tobacco Use Types Packs/Day Years [...] Date Recorded Patient Health Questionnaire-2 Score 0 02/13/2023 Hunger Vital Sign Answer Date Recorded Within [...] place to sleep or slept in a intermediate (including now)? No 02/02/2023 Comments No Sex [...] documented in this encounter Progress Notes * Jackie Hall RN - 04/02/2023 9:35 AM CST Please advise? I think they are wanting to know if the Simvastatin is ok and what the correct dosage would be (10 mg or 20 mg) RINTENDENT COMMUNICATIONS * Savanah Baird RN - 03/27/2023 10:27 AM CST Sent doc halo to referral dept about changing referral to [place]. RINTENDENT COMMUNICATIONS * Jackie Hall RN - 03/20/2023 9:10 AM CDT Please advise. documented in this encounter Plan of Treatment Upcoming Encounters Date Type Department Care Team (Late st Contact Info) Description 07/04/2024 10:40 AM SUPERINTENDENT COMMUNICATIONS Office Visit [facility] Family & Internal Medicine [facility] [address] [place] [address] Lisset Luis FNP-BC [address] [facility], [address] [address] 09/12/2024 10:40 AM CDT Office Visit [facility] Family & Internal [facility] [address] [place] [phone] Lisset Luis FNP-BC [address] [facility] Alex, [address] [address] documented as of this encounter Visit Diagnoses Not on filedocumented in this encounter Care Teams Acoustical Engineer Relationship Specialty Start Date End Date Lisset Luis FNP-BC [address] [address], [address] [address] PCP - General Nurse Practitioner Family 01/27/23 Raymond Brunson MD [address] [address] CARDIOVASCULAR DISEASE 06/04/23 Gabriele Doshi MD 6812 [facility] [address] [place] [address] Referring Physician NEPHROLOGY 06/04/23 documented as of this encounter
--- OUTSIDE RECORDS SUMMARY | 2024-06-21 09:49 | XMS_ITS | Encounter Summary ---
Author Organization [facility] Address [facility]6 [facility] [place] [address] [place] [address] Care Team Providers Care Milk Treater Name Role Phone Lisset Luis [facility]- Primary Care Provider + Raymond Brunson MD Unavailable [phone] Gabriele Doshi MD Unavailable [phone] Encounter Details Date Type Department Care Team (Late st Contact Info) Description 03/04/2023 MyCagnion Energyt Message Enc [facility] Medical Group Family & Internal Medicine [address] [address] Lisset Luis [address] [place] [address] A1C Social History Tobacco Use Types Packs/Day Years [...] place to sleep or slept in a halfway (including now)? No 02/02/2023 Comments Unknown Sex and Gender Information Value [...] Progress Notes * Jackie Hall RN - 03/10/2023 10:11 AM CDT Please advise. I have added the request to her appt notes. documented in this encounter Plan of Treatment Upcoming Encounters Date Type Department Care Team (Late st Contact Info) Description 07/04/2024 10:40 AM CLINICAL TRANSPLANT COORDINATOR Office Visit [facility] Family & Internal Medicine [address] [address] Lisset Luis FNP-JEFFRY [address] [facility], [address] [place] [address] 09/12/2024 10:40 AM CDT Office Visit [facility] Family & Internal [address] [address] Lisset Luis FNP-JEFFRY [address], [address] [place] [address] documented as of this encounter Visit Diagnoses Not on filedocumented in this encounter Care Teams Milk Treater Relationship Specialty Start Date End Date Toby, Lisset R, [facility] [address] [address], [address] [place] [address] PCP - General Nurse Practitioner Family 01/27/23 Raymond Brunson MD [address] [address] CARDIOVASCULAR DISEASE 06/04/23 Gabriele Doshi MD 6812 [facility] [address] [place] [address] Referring Physician NEPHROLOGY 06/04/23 documented as of this encounter
--- OUTSIDE RECORDS SUMMARY | 2024-06-21 09:49 | XMS_ITS | Encounter Summary ---
Author Organization [facility] Address [facility] [place] [address] [place] [address] Care Team Providers Care Supervisor Correspondence Section Name Role Phone Coco MuñizP-JEFFRY Primary Care Provider + Raymond Brunson MD Unavailable [phone] Gabriele Doshi MD Unavailable [phone] Reason for Referral * Imaging (Routine) - Closed Specialty Diagnoses / Procedures Referred By Zenaida grady Referred To Contact RADIOLOGY Diagnoses Multiple pulmonary nodules Procedures CT CHEST WO CON Coco Muñiz FNP-JEFFRY [address] [facility], [address] [place] [address] Phone: tel: fax: [facility] [address] [facility] [address] [place] [address] Phone: tel: fax: Referral ID Status Reason Start Date Expiration Date Visits Re quested Visits Authorized [id number] Closed 04/23/2023 04/23/2024 1 1 ISTRY PROFESSOR Encounter Details Date Type Department Care Team (Late st Contact Info) Description 04/13/2023 Ario Pharmat Message Enc [facility] Medical Group Family & Internal Medicine [facility] [address] [place] [address] Coco Muñiz, [facility] [address] [facility] [address]abs, [address] [place] [address] CT scan Social History Tobacco Use Types Packs/Day Years [...] place to sleep or slept in a chcf (including now)? No 02/02/2023 Comments No Sex [...] encounter Progress Notes * JENI Haynes - 04/24/2023 4:24 PM CST Noted ISTRY PROFESSOR * Jackie Hall RN - 04/24/2023 11:[address] report faxed to [facility] Pain Management [phone] Inquiring about the need for a thoracic MRI in addition to the lumbar MRI-which is scheduled on 05/05/2023. Requested a return call. ISTRY PROFESSOR * Jackie Hall RN - 04/23/2023 10:22 AM CST Called and spoke to Paige, daughter, informed of Coco's recommendations. Patient needs a repeat CTof chest in 3 months to evaluate lung nodules. Coco also would like pain management clinic to be informed of patients compression fractures and inquire if provider would want an MRI of the thoracic spine as og as lumbar spine. Message left at [phone] to return call. ISTRY PROFESSOR documented in this encounter Plan of Treatment Upcoming Encounters Date Type Department Care Team (Late st Contact Info) Description 07/04/2024 10:40 AM DENTISTRY PROFESSOR Office Visit [facility] Family & Internal Medicine [address] [address] Coco Muñiz FNP-BC [address] [facility], [address] [place] [address] 09/12/2024 10:40 AM CDT Office Visit [facility] Family & Internal Medicine [address] [address] Coco Muñiz FNP-BC [address] [facility], [address] [place] [address] documented as of this encounter Results * CT CHEST WO CON (06/02/2023 1:33 PM DENTISTRY PROFESSOR) Anatomical Region Laterality Modality Chest Computed Tomogra phy 06/02/2023 1:55 PM DENTISTRY PROFESSOR Impressions 06/02/2023 2:10 PM DENTISTRY PROFESSOR IMPRESSION: 1. ??Follow-up CT of the chest in 6 months would be of benefit. Multiple pulmonary nodules in both lung apices as detailed above.. 2. ??No infiltrate or effusion. Mild atelectasis versus scar in the lung bases. 3. ??Small pericardial effusion. If indicated, follow-up with echocardiogram. Ordered By: COCO MUÑIZ Interpreted By: Kory Rae, 06/02/2023 1:55 PM Narrative 06/02/2023 2:10 PM DENTISTRY PROFESSOR EXAMINATION: CT CHEST WITHOUT CONTRAST EXAM DATE/TIME: 06/02/2023 1:25 PM REASON FOR EXAM: ??multiple lung nodules See Comments to the Radiologist ? Abnormal CT cervical spine COMPARISON: CT cervical spine of 02/02/2023 TECHNIQUE: Computed tomography was performed of the chest without intravenous contrast. A dose lowering technique was used for this procedure, which may include, but is not limited to, dose reduction technique, automated exposure control, iterative reconstruction, ALARA (As Low As Reasonably Achievable), or Image Gently techniques. FINDINGS: 7 mm ill-defined nodule within lateral left lung apex on image 29 of series 3. Smaller 4 mm nodule in left lung apex on image 27.. Ill-defined 9 mm nodule abutting the pleura in the right lung apex on image 21. Scar formation with adjacent ill-defined nodules in the right lung apex on image 16 and 18.. Multiple other nodules within the right lung apex with the largest measuring 6 mm on image 28. Markers placed on study. Follow-up exam in 6 months.. Mild atelectasis versus scar in both lung bases. No pleural effusion or pneumothorax. Bilateral calcified granulomas. On soft tissue windows, no axillary or supraclavicular lymphadenopathy. On mediastinal windows, no evidence of hilar or mediastinal lymphadenopathy. Heart size normal. Small thin pericardial effusion measuring 1.1 cm.. Calcified left hilar lymph nodes. Moderate coronary artery calcifications.. Limited evaluation of the upper abdomen demonstrates no acute abnormality. Cholecystectomy.. Incidental note made of significant calcified plaque within the proximal left subclavian artery on image 29 of series 2. 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 Please correlate with blood pressures. Moderate degenerative change in thoracic spine with multiple old xxtz-qx-tludfhwz compression deformities. Intrathecal electrodes noted. Procedure Note Wang Rae MD - 06/02/2023 EXAMINATION: CT CHEST WITHOUT CONTRAST EXAM DATE/TIME: 06/02/2023 1:25 PM REASON FOR EXAM: multiple lung nodules See Comments to the Radiologist Abnormal CT cervical spine COMPARISON: CT cervical spine of 02/02/2023 TECHNIQUE: Computed tomography was performed of the chest withoutintravenous contrast. A dose lowering technique was used for this procedure, which may include,but is not limited to, dose reduction technique, automated exposurecontrol, iterative reconstruction, ALARA (As Low As ReasonablyAchievable), or Image Gently techniques. FINDINGS: 7 mm ill-defined nodule within lateral left lung apex on image 29 ofseries 3. Smaller 4 mm nodule in left lung apex on image 27.. Ill-defined 9 mm nodule abutting the pleura in the right lung apex onimage 21. Scar formation with adjacent ill-defined nodules in the rightlung apex on image 16 and 18.. Multiple other nodules within the right lung apex with the largestmeasuring 6 mm on image 28. Markers placed on study. Follow-up exam in 6months.. Mild atelectasis versus scar in both lung bases. No pleural effusion orpneumothorax. Bilateral calcified granulomas. On soft tissue windows, no axillary or supraclavicular lymphadenopathy. On mediastinal windows, no evidence of hilar or mediastinallymphadenopathy. Heart size normal. Small thin pericardial effusionmeasuring 1.1 cm.. Calcified left hilar lymph nodes. Moderate coronaryartery calcifications.. Limited evaluation of the upper abdomen demonstrates no acute abnormality.Cholecystectomy.. Incidental note made of significant calcified plaque within the proximalleft subclavian artery on image 29 of series 2. May cause left subclaviansteal phenomenon. Please correlate with blood pressures. Moderate degenerative change in thoracic spine with multiple shyyudb-xz-ualugpul compression deformities. Intrathecal electrodes noted. IMPRESSION: 1. Follow-up CT of the chest in 6 months would be of benefit. Multiplepulmonary nodules in both lung apices as detailed above.. 2. No infiltrate or effusion. Mild atelectasis versus scar in the lungbases. 3. Small pericardial effusion. If indicated, follow-up withechocardiogram. Ordered By: COCO MUÑIZ Interpreted By: Kory Rae, 06/02/2023 1:55 PM Coco Muñiz [facility] CT Final Re sult documented in this encounter Visit Diagnoses Diagnosis Multiple pulmonary nodules- Primary Other nonspecific abnormal finding of lung field documented in this encounter Care Teams Supervisor Correspondence Section Relationship Specialty Start Date End Date Coco Muñiz, [facility] [address] [facility], [address] [place] [address] PCP - General Nurse Practitioner Family 01/27/23 Raymond Brunson MD [address] [address] CARDIOVASCULAR DISEASE 06/04/23 Gabriele Doshi MD [address] [address] [address] [place] [address] Referring Physician NEPHROLOGY 06/04/23 documented as of this encounter
--- OUTSIDE RECORDS SUMMARY | 2024-06-21 09:49 | XMS_ITS | Encounter Summary ---
Author Organization [facility] Address [facility] [place], [place] [address] [place] [address] Care Team Providers Care Treating Engineer Name Role Phone Lisset Luis [facility] Primary Care Provider + Raymond Brunson MD Unavailable [phone] Gabriele Doshi MD Unavailable [phone] Encounter Details Date Type Department Care Team (Late st Contact Info) Description 06/04/2023 MyCPriceTagt Message Enc [facility] Medical Group Family & Internal Medicine [address] [address] Lisset Luis [address] [place] [address] Doppler Social History Tobacco Use Types Packs/Day Years [...] place to sleep or slept in a detention (including now)? No 02/02/2023 Comments No Sex [...] st Contact Info) Description 07/04/2024 10:40 AM RELIEF MAP MODELER Office Visit [facility] Family & Internal [address] [address] Lisset Luis FNP-BC [address] [id number] 09/12/2024 10:40 AM CDT Office Visit [facility] Family & Internal Medicine [facility] [address] [place] [address] Lisset Luis FNP-BC [address] [facility], [address] [phone] documented as of this encounter Visit Diagnoses Not on filedocumented in this encounter Care Teams Treating Engineer Relationship Specialty Start Date End Date Lisset Luis FNP-BC [address] [address], [address] [place] [address] PCP - General Nurse Practitioner Family 01/27/23 Raymond Brunson MD [address] [address] CARDIOVASCULAR DISEASE 06/04/23 Gabriele Doshi MD [address] [address] [address] [place] [address] Referring Physician NEPHROLOGY 06/04/23 documented as of this encounter
--- OUTSIDE RECORDS SUMMARY | 2024-06-21 09:49 | XMS_ITS | Encounter Summary ---
Author Organization [facility] Address [address] [place] [address]. [place] [address] [place] [address] Care Team Providers Care Panel Cutter Name Role Phone TobyLisset church [facility] Primary Care Provider + Raymond Brunson MD Unavailable [phone] Gabriele Doshi MD Unavailable [phone] Reason for Referral * Consultation/Treatment (Routine) - New Request Specialty Diagnoses / Procedures Referred By Zenaida grady Referred To Contact PAIN MANAGEMENT Diagnoses Lumbar radiculopathy Procedures OFFICE/OUTPATIENT NEW LOW MDM 30-44 MINUTES OFFICE/OUTPT VISIT,NEW,LEVL IV OFFICE/OUTPT VISIT,NEW,LEVL V OFFICE/OUTPT VISIT,EST,LEVL III OFFICE/OUTPT VISIT,EST,LEVL IV OFFICE/OUTPT VISIT,EST,LEVL V Shannan Gordon MD [facility] [address] [place] [address] Phone: tel: fax: Referral ID Status Reason Start Date Expiration Date Visits Requested Visits Authorized [id number] New Request Specialty Services 01/19/2024 01/18/20[address] Hernández for medical marijuana Encounter Details Date Type Department Care Team (Late st Contact Info) Description 01/19/2024 Telephone [facility] Interventional [place] [address] [id number] Shannan Gordon MD Three [facility] [address] [place], [place] [id number] Social History Tobacco Use Types Packs/Day Years [...] place to sleep or slept in a mcfp (including now)? No 02/02/2023 Comments No Sex [...] st Contact Info) Description 07/04/2024 10:40 AM NURSE FIRST ASSIST Office Visit [facility] Family & Internal Medicine [facility] [address] [place] [address] Lisset Luis FNP-BC [address] [address]ice, [address] [address] 09/12/2024 10:40 AM CDT Office Visit [facility] Family & Internal Medicine [facility] [address] [place] [address] Lisset Luis FNP-BC [address] [address] Brice, [address] [address] Scheduled Referrals Name Type Priority Associated Diagnoses Orde r Schedule Ambulatory Referral to Pain Referral Routine Lumbar radiculopathy Ordered: 01/19/2024 documented as of this encounter Visit Diagnoses Diagnosis Lumbar radiculopathy- Primary Thoracic or lumbosacral neuritis or radiculitis, unspecified documented in this encounter Care Teams Panel Cutter Relationship Specialty Start Date End Date Lisset Luis FNP-BC [address] [facility], [address] [address] PCP - General Nurse Practitioner Family 01/27/23 Raymond Brunson MD [address] [address] CARDIOVASCULAR DISEASE 06/04/23 Gabriele Doshi MD 6812 [facility] [address] [place] [address] Referring Physician NEPHROLOGY 06/04/23 documented as of this encounter
--- OUTSIDE RECORDS SUMMARY | 2024-06-21 09:49 | XMS_ITS | Encounter Summary ---
Author Organization [facility] Address [facility] [place] [address] [place] [address] Care Team Providers Care Digital Marketing Program Manager Name Role Phone Lisset Luis [facility]- Primary Care Provider + Raymond Brunson MD Unavailable [phone] Gabriele Doshi MD Unavailable [phone] Encounter Details Date Type Department Care Team (Late st Contact Info) Description 02/04/2023 MyChart Message Enc [facility] Family & Internal Medicine [address] [address] Lisset Luis [address] [place] [address] Follow up appt Social History Tobacco Use Types Packs/Day Years [...] and heating? Not hard at all 02/02/2023 Hunger Vital Sign Answer Date Recorded Within [...] place to sleep or slept in a longterm (including now)? No 02/02/2023 Comments Unknown Sex [...] documented in this encounter Progress Notes * Emilie Andrade RN - 02/04/2023 2:58 PM CDT Spoke with patient daughter Paige and patient scheduled for 02/13/23 at 1 PM documented in this encounter Plan of Treatment Upcoming Encounters Date Type Department Care Team (Late st Contact Info) Description 07/04/2024 10:40 AM BILLING CONTROL CLERK Office Visit [facility] Family & Internal Medicine [address] [address] Lisset Luis FNP-JEFFRY [address] [facility], [address] [place] [address] 09/12/2024 10:40 AM CDT Office Visit [facility] Family & Internal [address] [address] Lisset Luis FNP-JEFFRY [address] [facility], [address] [place] [address] documented as of this encounter Visit Diagnoses Not on filedocumented in this encounter Care Teams Digital Marketing Program Manager Relationship Specialty Start Date End Date Lisset Luis, [facility]- [address] [address], [address] [place] [address] PCP - General Nurse Practitioner Family 01/27/23 Raymond Brunson MD [address] [address] CARDIOVASCULAR DISEASE 06/04/23 Gabriele Doshi MD 6812 [facility] 162 [address] [place] [address] Referring Physician NEPHROLOGY 06/04/23 documented as of this encounter
--- OUTSIDE RECORDS SUMMARY | 2024-06-21 09:49 | XMS_ITS | Encounter Summary ---
Author Organization [facility] Address [facility] [place] [address] [place] [address] Care Team Providers Care Documentation Supervisor Name Role Phone Lisset Luis Primary Care Provider + Raymond Brunson MD Unavailable [phone] Gabriele Doshi MD Unavailable [phone] Reason for Referral * Imaging (Urgent) - Authorized Specialty Diagnoses / Procedures Referred By Zenaida grady Referred To Contact RADIOLOGY Diagnoses Cerebrovascular accident (CVA) due to embolism of left anterior cerebral artery (CMS/HCC HHS/HCC) Subclavian artery stenosis (CMS/HCC) Procedures ART DUPLEX UP LT Lisset Luis FNP-BC [address] [facility], [address] [place] [address] Phone: tel: fax: Referral ID Status Reason Start Date Expiration Date V isits Requested Visits Authorized [id number] Authorized 06/10/2023 07/09/2024 1 1 NG CATCHER * Surgical (Urgent) - New Request Specialty Diagnoses / Procedures Referred By Zenaida grady Referred To Contact VASCULAR SURGERY Diagnoses Cerebrovascular accident (CVA) due to embolism of left anterior cerebral artery (CMS/HCC HHS/HCC) Subclavian artery stenosis (CMS/HCC) Procedures OFFICE/OUTPATIENT NEW LOW MDM 30-44 MINUTES OFFICE/OUTPT VISIT,NEW,LEVL IV OFFICE/OUTPT VISIT,NEW,LEVL V OFFICE/OUTPT VISIT,EST,LEVL III OFFICE/OUTPT VISIT,EST,LEVL IV OFFICE/OUTPT VISIT,EST,LEVL V Lisset Luis FNP-JEFFRY [address] [facility], [address] [place] [address] Phone: tel: fax: [place] [address] [place] [address] Phone: tel: fax: Referral ID Status Reason Start Date Expiration Date Visits Requested Visits Authorized [id number] New Request Specialty Services 06/10/2023 07/09/2024 1 1 NG CATCHER * Consultation/Treatment (Routine) - Closed Specialty Diagnoses / Procedures Referred By Contdonny t Referred To Contact PAIN MANAGEMENT Diagnoses Cerebrovascular accident (CVA) due to embolism of left anterior cerebral artery ([facility]) DDD (degenerative disc disease), 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, sciatica laterality unspecified Chronic midline low back pain without sciatica Procedures OFFICE/OUTPATIENT NEW [facility] 30-44 MINUTES OFFICE/OUTPT VISIT,NEW,LEVL IV OFFICE/OUTPT VISIT,NEW,LEVL V OFFICE/OUTPT VISIT,EST,LEVL III OFFICE/OUTPT VISIT,EST,LEVL IV OFFICE/OUTPT VISIT,EST,LEVL V Lisset Luis FNP-BC [address] [facility], [address] [place] [address] Phone: tel: fax: Davis Villareal MD [address]60 [place] [address] Phone: tel: fax: Referral ID Status Reason Start Date Expiration Date V isits Requested Visits Authorized [id number] Closed Specialty Services 06/10/2023 06/10/2024 99 99 Scheduling Instructions Requests [facility]. NG CATCHER Encounter Details Date Type Department Care Team (Late st Contact Info) Description 06/08/2023 Tripwiret Message Enc [facility] Family & Internal Medicine [facility] [address] [place] [address] Lisset Luis FNP-BC [address] [facility], [address] [place] [address] Referrals Social History Tobacco Use Types Packs/Day Years [...] Assessment Author Status Yes 02/02/2023 6:35 PM MARILYNT Anahy Vanegas R N Active * Do [...] Progress Notes * Jackie Hall RN - 06/10/2023 4:09 PM CST Referrals have been entered. NG CATCHER * JENI Haynes - 06/10/2023 3:33 PM CST Okay for pain management referral to Dr. Villareal [facility] for lumbar spinal stenosis and chronic lower back pain. Imaging should be up to date for pain management. Dr. Doshi, Nephrology, should be able toorder any imaging he would like through [facility]. NG CATCHER * Jackie Hall RN - 06/10/2023 10:57 AM CST Order for walker has been faxed to [facility] NG CATCHER * Jackie Hall RN - 06/10/2023 10:51 AM CST Ok for referrals?? NG CATCHER documented in this encounter Plan of Treatment Upcoming Encounters Date Type Department Care Team (Late st Contact Info) Description 07/04/2024 10:40 AM EDGING CATCHER Office Visit [facility] Family & Internal Medicine [facility] [id number] [place] [address] Lisset Luis FNP-BC [address] [place] [address], [address] [place], [place] [phone] 09/12/2024 10:40 AM CDT Office Visit [facility] Family & Internal Medicine [place] [address] [place] [address] Lisset Luis FNP-BC [address] [facility], [address] [place] [address] Scheduled Orders Name Type Priority Associated Diagnoses Orde r Schedule US ART DUPLEX UP LT Ultrasound MINI Cerebrovascular accident (CVA) due to embolism of left anterior cerebral artery ([facility] HHS/HCC) Subclavian artery stenosis Expected: 06/10/2023, Expires: 06/10/2024 Scheduled Referrals Name Type Priority Associated Diagnoses Orde r Schedule Ambulatory Referral to Pain Management Referral Routine Cerebrovascular accident (CVA) due to embolism of left anterior cerebral artery ([facility]/HCC HHS/HCC) DDD (degenerative disc disease), 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, sciatica laterality unspecified Chronic midline low back pain without sciatica Ordered: 06/10/2023 Ambulatory referral to Vascular Surgery (OTHER) Referral MINI Cerebrovascular accident (CVA) due to embolism of left anterior cerebral artery ([facility]/HCC HHS/HCC) Subclavian artery stenosis Ordered: 06/10/2023 documented as of this encounter Visit Diagnoses Diagnosis Cerebrovascular accident (CVA) due to embolism of left anterior cerebral artery ([facility]/HCC HHS/HCC)- Primary DDD (degenerative disc disease), lumbar Degeneration of lumbar or lumbosacral intervertebral disc 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, sciatica laterality unspecified Subclavian artery stenosis ([facility]) Stricture of artery documented in this encounter Care Teams Documentation Supervisor Relationship Specialty Start Date End Date Lisset Luis FNP- [address] [facility], [address] [place] [address] PCP - General Nurse Practitioner Family 01/27/23 Raymond Brunson MD [address] [address] CARDIOVASCULAR DISEASE 06/04/23 Gabriele Doshi MD [address] [place] [address] Referring Physician NEPHROLOGY 06/04/23 documented as of this encounter
--- OUTSIDE RECORDS SUMMARY | 2024-06-21 09:49 | XMS_ITS | Encounter Summary ---
Author Organization [facility] Address [facility] [place] [address] [place] [address] Care Team Providers Care Trackwalker Name Role Phone Lisset Luis [facility]- Primary Care Provider + Raymond Brunson MD Unavailable Gabriele Doshi MD Unavailable [phone] Encounter Details Date Type Department Care Team (Late st Contact Info) Description 07/03/2023 MyCShopintoitt Message Enc [facility] Family & Internal Medicine [address] [address] Lisset Luis [address] [place] [address] Meds Social History Tobacco Use Types Packs/Day Years [...] place to sleep or slept in a skilled nursing (including now)? No 02/02/2023 Comments No Sex [...] encounter Progress Notes * JENI Haynes - 07/14/2023 10:07 AM CST Noted. RNED GOODS RECEIVING CLERK * Brooke Aldridge NP - 07/14/2023 9:58 AM CST fyi RNED GOODS RECEIVING CLERK * JENI Haynes - 07/06/2023 10:42 AM CST Our records indicate she should be taking all the listed medications. Reviewing her cardiology notefrom the last visit, they wanted her to continue clonidine, spironolactone, and furosemide. Labetalol was not commented on, however, if they did not specifically tell her to stop this, she should continue it. I would recommend confirming with the roll setter's office if there is concern. Please have her schedule an appointment with me. I know she has been sick with COVID19 and has had several specialist appt with medication changes recently. RNED GOODS RECEIVING CLERK * Jackie Hall RN - 07/06/2023 10:21 AM CST Please advise. Last seen by you in 02/2023-no upcoming appt. RNED GOODS RECEIVING CLERK documented in this encounter Plan of Treatment Upcoming Encounters Date Type Department Care Team (Late st Contact Info) Description 07/04/2024 10:40 AM RETURNED GOODS RECEIVING CLERK Office Visit [facility] Family & Internal [address] [address] Lisset Luis FNP-BC [address] [place] [address], [address] [phone] 09/12/2024 10:40 AM CDT Office Visit [facility] Family & Internal [facility] [address] [place] [address] Lisset Luis FNP-BC [address] [facility], [address] [phone] documented as of this encounter Visit Diagnoses Not on filedocumented in this encounter Care Teams Trackwalker Relationship Specialty Start Date End Date Lisset Luis FNP-BC [address] [facility], [address] [place] [phone] PCP - General Nurse Practitioner Family 01/27/23 Raymond Brunson MD [address] [facility] [facility] [facility] [address] [place] [address] CARDIOVASCULAR DISEASE 06/04/23 Gabriele Doshi MD [address] [place] [address] Referring Physician NEPHROLOGY 06/04/23 documented as of this encounter
--- OUTSIDE RECORDS SUMMARY | 2024-06-21 09:49 | XMS_ITS | Encounter Summary ---
Author Organization [facility] Address [address] [place] [address]. [place] [address] [place] [address] Care Team Providers Care Meat Pickler Name Role Phone Lisset Luis [facility] Primary Care Provider + Raymond Brunson MD Unavailable [phone] Gabriele Doshi MD Unavailable [phone] Reason for Visit * Reason Onset Date Comments Appointment Request 06/15/2024 Encounter Details Date Type Department Care Team (Late st Contact Info) Description 06/15/2024 MyChart Message Enc [facility] Family & Internal Medicine [address] [address] Lisset Luis, [address] [place] [address] Mom? s falls Social History Tobacco Use Types Packs/Day Years [...] place to sleep or slept in a [place] (including now)? No 02/02/2023 Comments No Sex [...] Assessment Author Status Yes 02/02/2023 6:35 PM CDAnahy Campbell R N Active documented as of this encounter Mental Status * Because of a physical, mental, or emotional condition, do you have serious difficulty concentrating, remembering, or making decisions? Answer Entry Date Author Status No 02/02/2023 6:35 PM CDT Anahy Vanegas R N Active documented in this encounter Progress Notes * Jackie Hall RN - 06/15/2024 4:29 PM CST Noted. E KID BUFFER * Radha Goyal - 06/15/2024 4:18 PM CST Paige called and set up an apt for ceci on 07/04. She was put on the wait list to try to get an earlier opening. E KID BUFFER * JENI Haynes - 06/15/2024 12:30 PM CST She will need a [id number] to order a hospital bed. E KID BUFFER * Jackie Hall RN - 06/15/2024 11:36 AM CST Please advise? E KID BUFFER documented in this encounter Plan of Treatment Upcoming Encounters Date Type Department Care Team (Late st Contact Info) Description 07/04/2024 10:40 AM WHITE KID BUFFER Office Visit [facility] Family & Internal Medicine [facility] [address] [place] [phone] Lisset Luis FNP-BC [address] [facility], [address] [phone] 09/12/2024 10:40 AM CDT Office Visit [facility] Family & Internal [facility] [address] [place] [address] Lisset Luis FNP-BC [address] [facility], [address] [address] documented as of this encounter Visit Diagnoses Not on filedocumented in this encounter Care Teams Meat Pickler Relationship Specialty Start Date End Date Lisset Luis FNP-BC [address] [facility] [employer], [address] [phone] PCP - General Nurse Practitioner Family 01/27/23 Raymond Brunson MD [address] [address] CARDIOVASCULAR DISEASE 06/04/23 Gabriele Doshi MD 6812 [facility] 162 [address] [place] [address] Referring Physician NEPHROLOGY 06/04/23 documented as of this encounter
--- OUTSIDE RECORDS SUMMARY | 2024-06-21 09:49 | XMS_ITS | Encounter Summary ---
Author Organization [facility] Address [facility] [place] [address] [place] [address] Care Team Providers Care Hide Shaker Name Role Phone Toby Lisset Rabago [facility] Primary Care Provider + Raymond Brunson MD Unavailable [phone] Gabriele Doshi MD Unavailable Encounter Details Date Type Department Care Team (Late st Contact Info) Description 01/13/2024 Bel Vinot Message Enc [facility] [place], [place] [phone] [id number] Shannan Gordon MD Three [facility] [address] [place] [address] Medical card Social History Tobacco Use Types Packs/Day Years [...] st Contact Info) Description 07/04/2024 10:40 AM TICKETER Office Visit [facility] Family & Internal [address] [address] Lisset Luis FNP-BC [address] [phone] 09/12/2024 10:40 AM CDT Office Visit [facility] Family & Internal [facility] [address] [place] [address] Lisset Luis FNP-BC [address] [facility], [address] [phone] documented as of this encounter Visit Diagnoses Not on filedocumented in this encounter Care Teams Hide Shaker Relationship Specialty Start Date End Date Lisset Luis FNP-BC [address] [address], [address] [place] [address] PCP - General Nurse Practitioner Family 01/27/23 Raymond Brunson MD [address] [facility] [address] [place] [address] CARDIOVASCULAR DISEASE 06/04/23 Gabriele [address] MD [address] [facility] [address] [place] [address] Referring Physician NEPHROLOGY 06/04/23 documented as of this encounter
--- OUTSIDE RECORDS SUMMARY | 2024-06-21 09:49 | XMS_ITS | Clinical Summary ---
Author Organization [facility] Address [address] [place] [address] Care Team Providers Care Applied Mathematician Name Role Phone Lisset Luis DIESEL LOCOMOTIVE ENGINEER Primary Care Provider [phone] Shani Power MD Unavailable Gabriele Doshi MD Unavailable [phone] Allergies Active Allergy Reactions Criticality Noted Date [...] APPLY TO LEG ONCE DAILY AT NIGHT ANTONIO-THURSDAY FOR 6 WEEKS. APPLY WITH A 2 CENTIMETER PERIMETER AROUND LESION 4 Active Ozempic 2 mg/dose (8 mg/3 mL) pen injector injection INJECT 2 MG UNDER THE SKIN ONCE A WEEK 3 mL 6 4 Active OneTouch Verio test strips strip TEST BLOOD SUGAR FOUR TIMES DAILY BEFORE A MEAL AND AT BEDTIME 4 Active OneTouch Verio Flex meter misc USE TO TEST FOUR TIMES DAILY 4 Active fluconazole (DIFLUCAN) 150 mg tablet 4 Active OneTouch Delica Plus Lancet 33 gauge misc TEST [...] 2 diabetes mellitus without complication, unspecified whether truck driver supervisor insulin use (HCC) USE TO INJECT THREE TIMES DAILY DIRECTED 100 each 11 4 Active Active Problems Problem Noted Date Diagnosed Date Essential tremor 03/22/2024 Assessment & Plan (03/22/2024 2:11 PM PET STYLIST): Patient presents with 5-years of progressive, bilateral, [...] Simvastatin 10mg. Last lipid panel: 02/27/23 LDL=67, YA=141. Renal artery stenosis 04/14/2023 CKD stage 3 [...] loss (SNHL) of both ears 0 01/30/2023 Encounters Date Type Department Care Team Description 03/31/2024 Orders Only [facility] Diabetes and Endocrinology [address] [place] [phone] Provider, MD Eliud 03/22/2024 2:00 PM PET STYLIST Clinical Support [facility] Movement Disorders [address] [place] [phone] Tremor 03/22/2024 1:00 PM PET STYLIST Office Visit [facility] Movement Disorders [address] [place] [phone] Davis Melo MD Essential tremor (Primary Dx); Type 2 diabetes mellitus with diabetic polyneuropathy, with long-term current use of insulin (HCC) from Last 3 Months Surgical History Surgery Date Site/Laterality Comments APPENDECTOMY BLADDER SURGERY CHOLECYSTECTOMY HYSTERECTOMY TOE SURGERY Medical History Medical History Date Comments Type 2 diabetes mellitus (HCC) Hypertension Colon cancer (CMS/HCC) (HCC) CVA (cerebral vascular accident) (HCC) Shortness of breath De La Rosa's palsy Depression GERD (gastroesophageal reflux disease) Hyperlipidemia Family History Medical History Relation Name Comments Heart disease Father Diabetes Mother Heart disease Mother Hypertension Mother Kidney disease Mother Relation Name Status Comments Father Mother Social History Tobacco Use Types Packs/Day Years [...] on file Legal Sex Female 3:27 AM PET STYLIST Gender Identity Not on file Sexual Orientation Not on file Obstetrics History Last Filed Vital Signs Vital Sign Reading Time Taken Comments Blood Pressure 177/69 03/22/2024 1:00 PM PET STYLIST Pulse 96 03/22/2024 1:00 PM PET STYLIST Temperature 36.4 ??C (97.5 ??F) 03/22/2024 1:00 PM CS T Respiratory Rate 16 01/25/2024 11:39 AM CDT Oxygen Saturation 97% 12/01/2023 2:39 PM CDT Inhaled Oxygen Concentration - - Weight 76.2 kg (168 lb) 03/22/2024 1:00 PM PET STYLIST Height 162.6 cm (5' 4.02 ) 01/25/2024 11:39 AM C DT Body Mass Index 28.82 01/25/2024 11:39 AM CDT Plan of Treatment Health Maintenance Due Date Last Done Comments Hepatitis B Screening 1958 DTaP/Tdap/Td Vaccine (2 - Td or Tdap) 05/18/1986 05/18/1976 Well Visit 65+ 2006 Covid-19 Vaccine (2023-2 5 season) 2024 01/02/2023, 02/06/2022, 10/04/2021, Additional history exists Lipid Panel 02/28/2024 02/27/2023, 02/27/2023 eGFR 02/28/2024 02/27/2023, 02/02/2023 Albumin Creatinine Ratio, Urine 03/11/2024 Fall Risk Assessment 07/07/2024 07/07/2023, 03/17/20 23 Hemoglobin A1C 07/24/2024 01/25/2024, 07/16, 02/02/2023 Osteoporosis Screening-Bone Density Scan 11/28/2024 11/28/2022 Foot Exam 01/24/2025 01/25/2024 Dilated Eye Exam 03/14/2025 03/14/2024 Depression Screening 03/22/2025 03/22/2024, 03/17/20 23 Pneumococcal vaccine 65+ Completed 09/19/2016, 05/2009 Zoster Vaccine Completed 10/26/2018, 08/16, 08/06/2018, Additional history exists Influenza Vaccine Completed 02/01/2024, , 03/01/2022, Additional history exists Procedures Procedure Name Priority Date/Time Associated Diagnosis [...] Recently Relevant to Health Maintenance Results * HM DIABETES EYE EXAM (03/14/2024 7:33 AM CDT) [...] URINE ORDERABLES Edit ed Result - Final Performing Organization Address [facility]/ZIP Co de Phone Number [facility] * (ABNORMAL) Lipid panel (02/27/2023 8:44 [...] 35 Units/L [facility] SCRIBED eGFR in NonAfrican [place] Citizen 41 >=60 - NA [facility] Blood 02/27/2023 8:44 AM CDT us Historical Provider LAB BLOOD ORDERABLES Edit ed Result - Final [facility] from Last 3 Months or Most Recently Relevant to Health Maintenance Insurance MEDICARE [facility] ACCESS OOS MEDICARE [facility] ACCESS OOS Care Teams Applied Mathematician Relationship Specialty Start Date End Date Lisset Luis NP PCP - General Family Medicine 04/14/23 [place] [id number] [address] [address] Consulting Physician Endocrinology Diabetes & Metabolism 08/12/23 [place] [address] [address] Referring Physician Nephrology 01/25/24
--- OUTSIDE RECORDS SUMMARY | 2024-06-21 09:49 | XMS_ITS | Encounter Summary ---
Author Organization [facility] Address [facility] [facility] [place] [address] [place] [address] Care Team Providers Care Car Distributor Name Role Phone Lisset Luis [facility]- Primary Care Provider + Raymond Brunson MD Unavailable Gabriele Doshi MD Unavailable [phone] Encounter Details Date Type Department Care Team (Late st Contact Info) Description 01/05/2024 [email or web address]t Message Enc [facility] Medical Group Family & Internal Medicine [address] [phone] Lisset Luis [address] [place] [address] Blood glucose monitor Social History Tobacco Use Types Packs/Day Years [...] a longterm (including now)? No 02/02/2023 Comments No Sex [...] Status Yes 02/02/2023 6:35 PM CDT Anahy aVnegas R N Active * Do you have [...] st Contact Info) Description 07/04/2024 10:40 AM FLAVOR MAKER Office Visit [facility] Family & Internal [address] [phone] Lisset Luis FNP-BC [address] [facility], [address] [phone] 09/12/2024 10:40 AM CDT Office Visit [facility] Family & Internal Medicine [address] [phone] Lisset Luis FNP-BC [address] [facility], [address] [phone] documented as of this encounter Visit Diagnoses Not on filedocumented in this encounter Care Teams Car Distributor Relationship Specialty Start Date End Date Lisset Luis FNP-BC [address], [address] [place] [address] PCP - General Nurse Practitioner Family 01/27/23 Raymond Brunson MD [address] [address] CARDIOVASCULAR DISEASE 06/04/23 Gabriele Doshi MD [address] [facility] [address] [place] [address] Referring Physician NEPHROLOGY 06/04/23 documented as of this encounter
--- OUTSIDE RECORDS SUMMARY | 2024-06-21 09:49 | XMS_ITS | Encounter Summary ---
Author Organization [facility] Address [facility] [place] [address] [place] [address] Care Team Providers Care Cost Manager Name Role Phone Lisset Luis [facility]- Primary Care Provider + Raymond Brunson MD Unavailable [phone] Gabriele Doshi MD Unavailable [phone] Encounter Details Date Type Department Care Team (Late st Contact Info) Description 10/13/2023 [employer] Message Enc [facility] Medical Group Family & Internal Medicine [address] [address] Lisset Luis [address] [place] [address] Physical therapy Social History Tobacco Use Types Packs/Day Years [...] st Contact Info) Description 07/04/2024 10:40 AM ARCHITECT NAVAL Office Visit [facility] Family & Internal [address] [phone] Lisset Luis FNP-BC [address] [facility], [address] [phone] 09/12/2024 10:40 AM CDT Office Visit [facility] Family & Internal Medicine [facility] [address] [place] [phone] Lisset Luis FNP-BC [address] [facility], [address] [phone] documented as of this encounter Visit Diagnoses Not on filedocumented in this encounter Care Teams Cost Manager Relationship Specialty Start Date End Date Lisset Luis FNP-BC [address], [address] [place] [address] PCP - General Nurse Practitioner Family 01/27/23 Raymond Brunson MD [address] [address] CARDIOVASCULAR DISEASE 06/04/23 Gabriele Doshi MD [address] [address] [address] [place] [address] Referring Physician NEPHROLOGY 06/04/23 documented as of this encounter
--- OUTSIDE RECORDS SUMMARY | 2024-06-21 09:49 | XMS_ITS | Clinical Summary ---
Author Organization [facility] Address [address] [place] [address]. [place] [address] [place] [address] Care Team Providers Care Plush Weaver Name Role Phone TobyLisset church Gem [facility] Primary Care Provider + Raymond Brunson MD Unavailable [phone] Gabriele Doshi MD Unavailable [phone] Allergies Active Allergy Reactions Criticality Noted Date Comments Amlodipine Rash Medium 06/01/2015 Other reaction(s): LE edema Amoxicillin Hives Medium 09/11/2013 Atorvastatin Rash Medium 06/01/2015 Other reaction(s): muscle pain Other reaction(s): muscle pain Codeine Hives 01/13/2024 Empagliflozin Nausea Only Low 01/25/2024 Erythromycin Rash Medium 06/01/2015 Other reaction(s): itching Exenatide Rash Medium 06/01/2015 Other reaction(s): LE edema Hydralazine Other (see comment),Rash Medium 06/01/2015 Other reaction(s): LE edema Losartan Rash Medium 06/01/2015 Other reaction(s): leg cramps Metformin Cough Medium 06/01/2015 Other reaction(s): diarrhea Other reaction(s): diarrhea Morphine Hives 01/13/2024 Penicillin G Hives Medium 06/01/2015 Penicillins Hives Medium 02/17/2014 Pioglitazone Unknown Low 06/01/2015 Other reaction(s): LE edema Rosiglitazone Rash Medium 06/01/2015 Other reaction(s): LE edema Rosuvastatin Leg Pain,Myalgias Medium 03/26/2023 Medications labetalol (NORMODYNE) 200 MG tablet Take 2 tablets (400 mg total) by mouth 2 (two) times daily. 02/15/20 22 Active melatonin 10 MG tablet Take 1 tablet (10 mg total) by mouth nightly as needed. Active aspirin 325 MG tablet Take 1 tablet (325 mg total) by mouth daily. Active diphenhydrAMINE (BENADRYL) 25 MG capsule Take 2 capsules (50 mg total) by mouth every evening. Active OZEMPIC 1 mg/dose injection (PEN) Inject 1 mg into the skin once a week. 02/04/20 23 Active TECHLITE INSULIN SYRINGE 31G X 15/64 1 ML Misc USE TO INJECT INSULIN THREE TIMES DAILY AND NEEDED 02/20/20 23 Active HUMULIN R U-500 KWIKPEN 500 UNIT/ML injection Take before meals, for sugars under 150, take 25 units For sugars over 200, take 30 units For sugars over 250, take 35 units For sugars over 300, take 40 units For sugars over 350, take 45 units For sugars over 400, take 50 units 03/17/20 23 Active [place] & Syringes MiscIndications:Angela betes mellitus ([facility]),Type 2 diabetes mellitus with diabetic polyneuropathy, with long-term current use of insulin ([facility]),Type 2 diabetes mellitus with other circulatory complication, with long-term current use of insulin ([facility]) Injects insulin 3 times daily and PRN 90 each 1 05/22/19 24 Active TECHLITE PEN NEEDLES 31G X 8 MM Misc USE TO INJECT THREE TIMES DAILY DIRECTED 07/16/19 24 Active TRUEPLUS INSULIN SYRINGE 30G X 5/16 0.5 ML Misc USE TO INJECT INSULIN THREE TIMES DAILY AND NEEDED 05/27/19 24 Active OZEMPIC 2 mg/dose injection (PEN) INJECT 2 MG UNDER THE SKIN ONCE A WEEK Active simvastatin (ZOCOR) 20 MG tabletIndications:T ype 2 diabetes mellitus with diabetic polyneuropathy, with long-term current use of insulin ([facility]),Cerebrovas cular accident (CVA) due to embolism of left anterior cerebral artery ([facility]/HCC) Take 1 tablet (20 mg total) by mouth daily. 90 tablet 1 09/23/19 24 Active cloNIDine (CATAPRES) 0.2 MG tabletIndications:E ssential hypertension Take 1 tablet (0.2 mg total) by mouth 2 (two) times daily. 180 tablet 1 09/23/19 24 Active furosemide (LASIX) 40 MG tabletIndications:L ocalized edema Take 0.5 tablets (20 mg total) by mouth daily as needed (leg swelling). 30 tablet 11/04/19 24 Active empagliflozin (JARDIANCE) 10 MG tabletIndications:D iabetes mellitus ([facility]/HCC) Take 1 tablet (10 mg total) by mouth daily. 30 tablet 12/30/19 24 Active Blood Glucose Monitoring Suppl (BLOOD GLUCOSE MONITOR SYSTEM) w/Device KitIndications:Diab etes mellitus ([facility]) 1 each by Does not apply route 4 (four) times daily before meals and nightly. 1 kit 01/07/20 24 Active Glucose Blood ([employer]TOUCH ULTRA) test stripIndications:Ty pe 2 diabetes mellitus with diabetic polyneuropathy, with long-term current use of insulin ([facility]) 1 strip by Other route as needed. Use as instructed 300 strip 3 02/03/20 24 Active gabapentin (NEURONTIN) 300 MG capsuleIndications: Restless legs,Chronic midline low back pain without sciatica Take 3 capsules (900 mg total) by mouth nightly. 270 capsule 02/03/20 24 Active cefdinir (OMNICEF) 300 MG Cap capsule Take 1 capsule (300 mg total) by mouth every 12 (twelve) hours. 02/15/20 24 Active Lancets ([employer]TOUCH DELICA PLUS [id number]) Misc TEST BLOOD SUGAR FOUR TIMES DAILY BEFORE A MEAL AND AT BEDTIME 01/09/20 24 Active silver sulfADIAZINE (SSD) 1 % cream APPLY TOPICALLY TO THE AFFECTED AREA DAILY 11/04/19 24 Active cloNIDine (CATAPRES) 0.1 MG tablet Take 1 tablet (0.1 mg total) by mouth 2 (two) times daily. 02/09/20 24 Active rOPINIRole (REQUIP) 0.25 MG tabletIndications:R estless legs TAKE 1 TABLET(0.25 MG) BY MOUTH EVERY NIGHT 90 tablet 1 11/15/20 24 Active spironolactone (ALDACTONE) 25 MG tabletIndications:E ssential hypertension TAKE 1 TABLET(25 MG) BY MOUTH DAILY 90 tablet 04/19/20 24 Active omeprazole (PRILOSEC) 20 MG capsuleIndications: Gastroesophageal reflux disease, unspecified whether esophagitis present Take 1 capsule (20 mg total) by mouth daily. 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 -remains on lasix gtt, may stop today, Cr trending up - ECHO with normal EF, severe diastolic dysfunction. -appreciate cardiology recs Cerebrovascular accident (CV A) due to embolism of left anterior cerebral artery ([facility]) 05/05/2018 Coronary atherosclerosis of [place] coronary vess el 02/17/2014 Essential hypertension 02/17/2014 Overview (02/15/2023): Last Assessment & Plan: Continue home medications with hold parameters Hyperlipidemia associated wi th type 2 diabetes mellitus ([facility]) 02/17/2014 Overview (02/15/2023): Last Assessment & Plan: LDL is 26, HDL is 47 Continue current statin Moderate episode of recurren t major depressive disorder ([facility]) 02/17/2014 Overview (02/15/2023): Last Assessment & Plan: Continue home medications Type 2 diabetes mellitus wit h diabetic polyneuropathy, with long-term current use of insulin ([facility]) 02/17/2014 Overview (02/15/2023): Last Assessment & Plan: Continue basal Lantus at slightly lower dose. 50 units instead of her normal 60. -conitnue Humalog 8 units 3 times daily, which is lower than her typical. - Corrective dose level 3 Resolved Problems Problem Noted Date Diagnosed Date Resolved Date Cellulitis 02/02/2023 02/05/2023 Encounters Date Type Department Care Team Description 06/15/2024 ReGen Power Systemst Message Revivio [facility] Medical [facility] Family & Internal Medicine [facility] [address] [place] [address] Lisset Luis FNP-JEFFRY Mom? s falls 05/20/2024 Revivio Message Revivio [facility] Family & Internal Medicine [facility] [address] [place] [address] Lisset Luis FNP-BC update on my mother from Last 3 Months Immunizations Name Administration Dates Next Due COVID-19 Vaccine (Generic) 02/01/2024 Fluad influenza vaccine, Saran drivalent (aIIV4), Inactivated, adjuvanted, preservative free, 0.5 mL,IM use 01/02/2023 Fluzone High Dose - >Age 65 (Prefilled Syringe) 03/01/2022 Influenza (Generic) 02/01/2024, 9,02/19/2017,2013 Influenza Adult (Generic) 02/05/2021,,02/21/2020,2017,02/12/2016,02/16/2015 MODERNA COVID-19 BIVALENT (1 2+), MRNA, LNP-S, PF 01/02/2023,02/06/2022 MODERNA COVID-19 (12+) MRNA, LNP-S, PF, 100 MCG/ 0.5 ML DOSE 08/13/2020,07/17/2020 MODERNA COVID-19 (DEFENSIVE DRIVING INSTRUCTOR MARY ANN SHIVA), MRNA, LNP-S, PF, 50 MCG/ 0.25 ML DOSE 10/04/2021 Pneumococcal (Pneumovax 23) 02/15/2010 Pneumococcal (Prevnar 13) 09/19/2016 Shingrix 10/26/2018,08/30/2018,08/06/2018 Tdap (Generic) 05/18/1976 Zoster (Zostavax) [address] Unt/0.65Ml 02/15/2013 Family History Medical History Relation Comments Cancer Brother Heart Disease Brother Hypertension Brother Kidney Disease Brother Asthma Daughter 1 Cancer Daughter 2 Early Father Heart Disease Father Hypertension Father CA Father Arthritis Mother CHF Mother Cancer Mother Depression Mother Diabetes Mother Heart Disease Mother Hypertension Mother Kidney Disease Mother Thyroid Mother Arthritis Sister Diabetes Sister Relation Status Comments Brother Daughter 1 Daughter 2 Father Mother Sister Social History Tobacco Use Types Packs/Day Years Used Date Smoking Tobacco: Never Smokeless Tobacco: Never Tobacco Cessation:Counseling Given: Not Answered Alcohol Use Standard Drinks/Week Comments Not Currently [...] Sign Reading Time Taken Comments Blood Pressure 142/60 03/14/2024 11:32 AM CDT ma nual Pulse 93 03/14/2024 10:43 AM CDT Temperature 36.9 ??C (98.5 ??F) 03/14/2024 10:43 AM C DT Respiratory Rate 18 03/14/2024 10:43 AM CDT Oxygen Saturation 97% 03/14/2024 10:43 AM CDT Inhaled Oxygen Concentration - - Weight 75.8 kg (167 lb) 03/14/2024 10:43 AM CDT Height 162.6 cm (5' 4 ) 03/14/2024 10:43 AM CDT Body Mass Index 28.67 03/14/2024 10:43 AM CDT Plan of Treatment Upcoming Encounters Date Type Department Care Team (Late st Contact Info) Description 07/04/2024 10:40 AM PETROLEUM PLANT OPERATOR Office Visit [facility] Family & Internal Medicine [facility] [address] [place] [address] Lisset Luis, [facility] [address] [facility], [address] [place] [address] 09/12/2024 10:40 AM CDT Office Visit [facility] Family & Internal Medicine [facility] [address] [place] [address] Lisset Luis [facility] [address] [facility], [address] [place] [id number] Health Maintenance Due Date Last Done Comments Kidney Health Evaluation 1941 Annual Medicare Wellness Visit 2006 ASCVD LDL 02/28/2024 02/27/2023 Lipid Panel 02/28/2024 02/27/2023 Hemoglobin A1C 03/26/2024 12/25/2023, 05/0 12/2023, 03/12/2023, Additional history exists PHQ-2 (Physician [place]) 05/18/2024 07/22/2023 RSV Immunization or 60+ Years (1 - 1-dose 75+ series) 09/22/2024 Postponed from 2016 (Future Appointment) DTaP, Tdap and Td Vaccines (2 - Td or Tdap) 03/22/2025 05/18/1976 Postponed from 05/18/1986 (Patient Refused) Diabetes: Retinopathy Eye Exam 03/14/2026 03/14/2024 Pneumococcal Vaccine: 65+ Years Completed 09/19/2016, 02/15/2010 Zoster Vaccines Completed 10/26/2018, 08/16, 08/06/2018, Additional history exists Dexa Scan (General) Completed 11/28/2022, 11/28/2022, 10/16/2016 COVID-19 Vaccine Completed 02/01/2024, , 02/06/2022, Additional history exists Influenza Adult Completed 02/01/2024, 12/16, 03/01/2022, Additional history exists Meningococcal B Vaccine Aged Out No l onger eligible based on patient's age to complete this topic Meningococcal Vaccine Aged Out No mikki richardson eligible based on patient's age to complete this topic RSV Immunizations Under 20 Months Aged Out No longer eligible based on patient's age to complete this topic Medical Devices Implanted Type Area Forensic Audit Expert Device Identifier Shelf Expiration Date Model / Serial / Lot Stimulator Lead-09/29/2014 Implanted:Qty: 1 on 09/29/2014 Lead Implant [employer] [id number] / / [id number] Stimulator Lead-09/29/2014 Implanted:Qty: 1 on 09/29/2014 Lead Implant [employer] [id number] / / [id number] Stimulator Implant-09/20/19 Implanted:Qty: 1 on 09/19/2014 Stimulator Implant Spine Lumbar [employer] [id number] / [id number] H / Description:MR Conditional a t 1.5 T only, full body eligible (follow most recent MRI technical manual conditions), stimulation needs to be turned off prior to MRI Procedures Procedure Name Priority Date/Time Associated Diagnosis Comments DIABETIC RETINOPATHY EXAM (NEGATIVE)(SCAN ORDER) Routine 03/14/2024 HEMOGLOBIN, GLYCOSYLATED Routine 12/25/2023 Type 2 diabetes mellitus with diabetic polyneuropathy, with long-term current use of insulin ([facility]) LIPID PANEL Routine 02/27/2023 8:44 AM CDT from Last 3 Months or Most Recently Relevant to Health Maintenance Results * DIABETIC RETINOPATHY EXAM (NEGATIVE) (03/14/2024) us [facility] Scanned SCANNING Final Resu lt [facility] ONBASE * HEMOGLOBIN, GLYCOSYLATED (12/25/2023) HGB A1C 9.9 % MG-[id number] T IJEOMA LITTLE 12/25/2023 Lisset Rabago Toby [facility] Final Re sult [id number] [place] [address] [place] [address], * (ABNORMAL) LIPID PANEL (02/27/2023 8:44 AM CDT) [facility] Signature CHOLESTEROL 153 <200 mg/dL Sarbari [facility] HDL 46(L) > OR = 50 mg/dL Sarbari [facility] TRIGLYCERIDES 332(H) <150 mg/dL [facility] Comment: If a non-fasting specimen was collected, consider repeat triglyceride testing on a fasting specimen if clinically indicated. Juliana et al. J. of Clin. Lipidol. 2015;9:129-169. LDL (CALCULATED) 67 mg/dL (calc) [facility] Comment: Reference range: <100 Desirable range <100 mg/dL for primary prevention; ?? <70 mg/dL for patients with CHD or diabetic patients with > or = 2 CHD risk factors. LDL-C is now calculated using the Bhavin-Gonzalez calculation, which is a validated novel method providing better accuracy than the Friedewald equation in the estimation of LDL-C. Bhavin SS et al. ZION. 2013;310(19): 3115-6150 (http://education.Pit My Pet/faq/FPL229) CHOL/HDL RATIO 3.3 <5.0 (calc) [facility] NON HDL CHOLESTEROL 107 <130 mg/dL (calc) [facility] Comment: For patients with diabetes plus 1 major ASCVD risk factor, treating to a non-HDL-C goal of <100 mg/dL (LDL-C of <70 mg/dL) is considered a therapeutic option. 02/27/2023 8:44 AM CDT 02/27/2023 8:50 AM CDT Narrative [facility] - [facility] - 02/28/2023 6:04 AM CDT FASTING:YES PATIENT UNABLE TO VOID; ADVISED TO RETURN FOR COLLECTION. FASTING: YES Resulting Agency Comment Performing Organization Information: ?Site ID: [id number] ?Name: [facility] ?Address: [address] [address] ?Director: Dennis Lopez PhD us Lisset Luis [facility] Final Re sult [facility] [address] [address], from Last 3 Months or Most Recently Relevant to Health Maintenance Insurance MEDICARE [facility] Advance Directives * DNR (Latest Code Status on File) Date Activated Date Inactivated Comments 02/02/2023 3:42 PM 02/05/2023 4:04 PM Care Teams Plush Weaver Relationship Specialty Start Date End Date Lisset Luis, [facility] [address] [address], [address] [place] [address] PCP - General Nurse Practitioner Family 01/27/23 Raymond Brunson MD [address] [address] CARDIOVASCULAR DISEASE 06/04/23 Gabriele Doshi MD [address] [facility] [address] [place] [address] Referring Physician NEPHROLOGY 06/04/23
--- OUTSIDE RECORDS SUMMARY | 2024-06-21 09:49 | XMS_ITS | Encounter Summary ---
Author Organization [facility] Address [facility] [place] [address] [place] [address] Care Team Providers Care Manager Intelligence Name Role Phone Lisset Luis [facility]- Primary Care Provider + Raymond Brunson MD Unavailable [phone] Gabriele Doshi MD Unavailable [phone] Encounter Details Date Type Department Care Team (Late st Contact Info) Description 10/29/2023 MyCOpTiert Message Enc [facility] Medical Group Family & Internal Medicine [address] [address] Lisset Luis [address], [address] [place] [address] [facility] neurology referral Social History Tobacco Use Types Packs/Day [...] Author Status Yes 02/02/2023 6:35 PM CDT Anhay Vanegas R N Active * Are you [...] st Contact Info) Description 07/04/2024 10:40 AM POWER LINEMAN TECHNICIAN Office Visit [facility] Family & Internal [address] [address] Lisset Luis FNP-BC [address] [facility], [address] [phone] 09/12/2024 10:40 AM CDT Office Visit [facility] Family & Internal Medicine [facility] [address] [place] [address] Lisset Luis FNP-BC [address] [facility], [address] [address] documented as of this encounter Visit Diagnoses Not on filedocumented in this encounter Care Teams Manager Intelligence Relationship Specialty Start Date End Date Lisset Luis FNP-BC [address], [address] [place] [address] PCP - General Nurse Practitioner Family 01/27/23 Raymond Brunson MD [address] [address] CARDIOVASCULAR DISEASE 06/04/23 Gabriele Doshi MD 6812 [facility] [address] [place] [address] Referring Physician NEPHROLOGY 06/04/23 documented as of this encounter
--- OUTSIDE RECORDS SUMMARY | 2024-06-21 09:49 | XMS_ITS | Encounter Summary ---
Author Organization [facility] Address [address] [place] [address]. [place], [place] [address] [place] [address] Care Team Providers Care Hand Stemmer Name Role Phone Toby Lisset Rabago [facility] Primary Care Provider + Raymond Brunson MD Unavailable [phone] Gabriele Doshi MD Unavailable [phone] Encounter Details Date Type Department Care Team (Late st Contact Info) Description 01/13/2024 I-Tech Message Enc [facility] Medical Group Family & Internal Medicine [address] [address] Damari, [facility] Provider CT Social History Tobacco Use Types Packs/Day Years [...] place to sleep or slept in a half-way (including now)? No 02/02/2023 Comments No Sex [...] Progress Notes * JENI Haynes - 01/13/2024 3:07 PM CDT Noted. Thank you. * Jackie Hall RN - 01/13/2024 12:08 PM CDT Patient is scheduled for 01/26/2024 documented in this encounter Plan of Treatment Upcoming Encounters Date Type Department Care Team (Late st Contact Info) Description 07/04/2024 10:40 AM COMMERCIAL ENERGY AUDITOR Office Visit [facility] Family & Internal Medicine [facility] [address] [place] [address] Lisset Luis FNP-BC [address] [place] [address] 09/12/2024 10:40 AM CDT Office Visit [facility] [address] [place] [address] Lisset Luis FNP- [address] [address], [address] [place] [address] documented as of this encounter Visit Diagnoses Not on filedocumented in this encounter Care Teams Hand Stemmer Relationship Specialty Start Date End Date Lisset Luis FNP-BC [address] [address], [address] [place] [address] PCP - General Nurse Practitioner Family 01/27/23 Raymond Brunson MD [address] [address] CARDIOVASCULAR DISEASE 06/04/23 Gabriele Doshi MD 6812 [facility] [address] [place] [address] Referring Physician NEPHROLOGY 06/04/23 documented as of this encounter
--- OUTSIDE RECORDS SUMMARY | 2024-06-21 09:49 | XMS_ITS | Encounter Summary ---
Author Organization [facility] Address [facility]6 [facility] [place] [address] [place] [address] Care Team Providers Care Slitter Scorer Cut Off Operator Name Role Phone Lisset Luis [facility]- Primary Care Provider + Raymond Brunson MD Unavailable [phone] Gabriele Doshi MD Unavailable [phone] Encounter Details Date Type Department Care Team (Late st Contact Info) Description 05/06/2023 MyCOsent Message Enc [facility] Medical Group Family & Internal Medicine [address] [address] Lisset Luis [address] [place] [phone] Pain Social History Tobacco Use Types Packs/Day Years [...] place to sleep or slept in a assisted (including now)? No 02/02/2023 Comments No Sex [...] Progress Notes * Jackie Hall RN - 05/07/2023 3:42 PM CST noted MS ASSOCIATE documented in this encounter Plan of Treatment Upcoming Encounters Date Type Department Care Team (Late st Contact Info) Description 07/04/2024 10:40 AM CLAIMS ASSOCIATE Office Visit [facility] Family & Internal Medicine [address] [address] Lisset Luis FNP-BC [address] [facility] Alex, [address] [place] [address] 09/12/2024 10:40 AM CDT Office Visit [facility] Family & Internal [address] [address] Lisset Luis FNP-BC [address] [facility], [address] [place] [address] documented as of this encounter Visit Diagnoses Not on filedocumented in this encounter Care Teams Slitter Scorer Cut Off Operator Relationship Specialty Start Date End Date Lisset Luis, [facility]- [address] [address], [address] [place], [place] [id number] PCP - General Nurse Practitioner Family 01/27/23 Raymond Brunson MD [address] [address] CARDIOVASCULAR DISEASE 06/04/23 Gabriele Doshi MD [address] [facility] [address] [place] [address] Referring Physician NEPHROLOGY 06/04/23 documented as of this encounter
[2024-06-21 13:00] VITALS: BP 142/70; PULSE 68; RESP 16; TEMP 36.6; O2SAT 98
[2024-06-21 14:49] LABS: Uric Acid 8.1 mg/dL (2.5-7.5)
[2024-06-21 15:00] VITALS: BP 142/84; PULSE 74; RESP 16; TEMP 36.6; O2SAT 98
--- OUTSIDE RECORDS SUMMARY | 2024-06-21 15:06 | XMS_ITS | Encounter Summary ---
Author Organization [facility] Address [facility] [place] [address] Care Team Providers Care Elementary Teacher Name Role Phone Lisset Luis [facility] Primary Care Provider + Raymond Brunson MD Unavailable [phone] Gabriele Doshi MD Unavailable [phone] Encounter Details Date Type Department Care Team (Late st Contact Info) Description 07/03/2023 [email or web address] Message Enc [facility] Medical Group Family & Internal Medicine [address] [address] Lisset Luis, [address] [place] [address] Meds Social History Tobacco Use Types Packs/Day [...] Haynes - 07/14/2023 10:07 AM CST Noted. CTION MOLDING OPERATOR * Brooke Aldridge NP - 07/14/2023 9:58 AM CST fyi CTION MOLDING OPERATOR * JENI Haynes - 07/06/2023 10:42 AM CST Our records indicate she should be taking all the listed medications. Reviewing her cardiology notefrom the last visit, they wanted her to continue clonidine, spironolactone, and furosemide. Labetalol was not commented on, however, if they did not specifically tell her to stop this, she should continue it. I would recommend confirming with the closing coordinator's office if there is concern. Please have her schedule an appointment with me. I know she has been sick with COVID19 and has had several specialist appt with medication changes recently. CTION MOLDING OPERATOR * Jackie Hall RN - 07/06/2023 10:21 AM CST Please advise. Last seen by you in 02/2023-no upcoming appt. CTION MOLDING OPERATOR documented in this encounter Plan of Treatment Upcoming Encounters Date Type Department Care Team (Late st Contact Info) Description 07/04/2024 10:40 AM INJECTION MOLDING OPERATOR Office Visit [facility] Family & Internal Medicine [facility] [address] [place] [address] Lisset Luis FNP-BC [id number] [place] [address], [address] [phone] 09/12/2024 10:40 AM CDT Office Visit [facility] Family & Internal [facility] [address] [place] [address] Lisset Luis FNP-BC [address] [facility], [address] [phone] documented as of this encounter Visit Diagnoses Not on filedocumented in this encounter Care Teams Elementary Teacher Relationship Specialty Start Date End Date Lisset Luis FNP-BC [address] [facility] Interactivefercho Johnson, [address] [place] [id number] PCP - General Nurse Practitioner Family 01/27/23 Raymond Brunson MD [address] [facility] [address] [place] [address] CARDIOVASCULAR DISEASE 06/04/23 Gabriele Doshi MD [address] [place] [address] Referring Physician NEPHROLOGY 06/04/23 documented as of this encounter
--- OUTSIDE RECORDS SUMMARY | 2024-06-21 15:06 | XMS_ITS | Encounter Summary ---
Author Organization [facility] Address [facility] [place] [address] Care Team Providers Care Professional Shopper Name Role Phone Lisset Luis [facility] Primary Care Provider + Raymond Brunson MD Unavailable [phone] Gabriele Doshi MD Unavailable [phone] Encounter Details Date Type Department Care Team (Late st Contact Info) Description 03/19/2023 MyCthePlatformt Message Enc [facility] Medical Group Family & Internal Medicine [address] [address] Lisset Luis, [address] [place] [address] rosuvastatin Social History Tobacco Use Types Packs/Day [...] would be (10 mg or 20 mg) STICAL ENGINEER * Savanah Baird RN - 03/27/2023 10:27 AM CST Sent doc halo to referral dept about changing referral to [place]. STICAL ENGINEER * Jackie Hall RN - 03/20/2023 9:10 AM CDT Please advise. documented in this encounter Plan of Treatment Upcoming Encounters Date Type Department Care Team (Late st Contact Info) Description 07/04/2024 10:40 AM ACOUSTICAL ENGINEER Office Visit [facility] Family & Internal Medicine [facility] [address] [place] [address] Lisset Luis FNPYUE [address] [address], [address] [place] [address] 09/12/2024 10:40 AM CDT Office Visit [facility] Family & Internal [facility] [address] [place] [phone] Lisset Luis FNP-BC [address] [facility], [address] [address] documented as of this encounter Visit Diagnoses Not on filedocumented in this encounter Care Teams Professional Shopper Relationship Specialty Start Date End Date Lisset Luis FNP-BC [address] [address], [address] [place] [address] PCP - General Nurse Practitioner Family 01/27/23 Raymond Brunson MD [address] [address] CARDIOVASCULAR DISEASE 06/04/23 Gabriele Doshi MD 6812 [facility] [address] [place] [address] Referring Physician NEPHROLOGY 06/04/23 documented as of this encounter
--- OUTSIDE RECORDS SUMMARY | 2024-06-21 15:06 | XMS_ITS | Referral Summary ---
Author Organization [facility] Address [address] [place] [address] Care Team Providers Care Lens And Frames Prescription Clerk Name Role Phone Lisset Luis COVERED BUCKLE ASSEMBLER Primary Care Provider [phone] Shani Power MD Unavailable Gabriele Doshi MD Unavailable [phone] Encounters Date Type Department Care Team Description 03/31/2024 Orders Only [facility] Medical Group Diabetes and Endocrinology [address] [place] [address] Provider, MD Eliud 03/22/2024 2:00 PM CREDIT UNDERWRITER Clinical Support [facility] Movement Disorders [address] [place] [phone] Tremor 03/22/2024 1:00 PM CREDIT UNDERWRITER Office Visit [facility] Movement Disorders [address] [place] [phone] Davis Melo MD Essential tremor (Primary [...] A WEEK 3 mL 6 4 Active [employer] Verio test strips strip TEST BLOOD SUGAR FOUR TIMES DAILY BEFORE A MEAL AND AT BEDTIME 4 Active OneTouch Verio Flex meter misc USE TO TEST FOUR TIMES DAILY 4 Active fluconazole (DIFLUCAN) 150 mg tablet 4 Active [employer] Delica Plus Lancet 33 gauge misc TEST [...] 2 diabetes mellitus without complication, unspecified whether custodial insulin use (HCC) USE TO INJECT THREE TIMES DAILY DIRECTED 100 each 11 4 Active Active Problems Problem Noted Date Diagnosed Date Essential tremor 03/22/2024 Assessment & Plan (03/22/2024 2:11 PM CREDIT UNDERWRITER): Patient presents with 5-years of progressive, bilateral, [...] Simvastatin 10mg. Last lipid panel: 02/27/23 LDL=67, CW=538. Renal artery stenosis 04/14/2023 CKD stage 3 [...] on file Legal Sex Female 3:27 AM CREDIT UNDERWRITER Gender Identity Not on file Sexual Orientation Not on file Last Filed Vital Signs Vital Sign Reading Time Taken Comments Blood Pressure 177/69 03/22/2024 1:00 PM CREDIT UNDERWRITER Pulse 96 03/22/2024 1:00 PM CREDIT UNDERWRITER Temperature 36.4 ??C (97.5 ??F) 03/22/2024 1:00 PM CS T Respiratory Rate 16 01/25/2024 11:39 AM CDT Oxygen Saturation 97% 12/01/2023 2:39 PM CDT Inhaled Oxygen Concentration - - Weight 76.2 kg (168 lb) 03/22/2024 1:00 PM CREDIT UNDERWRITER Height 162.6 cm (5' 4.02 ) 01/25/2024 [...] 35 Units/L [facility] SCRIBED eGFR in NonAfrican Citizen Of [place] 41 >=60 - NA [facility] Blood 02/27/2023 8:44 AM CDT Historical Provider LAB BLOOD ORDERABLES Edit ed Result - Final [facility] from Last 3 Months or Most Recently Relevant to Health Maintenance Insurance MEDICARE BLUE ACCESS OOS MEDICARE BLUE ACCESS OOS Care Teams Lens And Frames Prescription Clerk Relationship Specialty Start Date End Date iLsset Luis NP PCP - General Family Medicine 04/14/23 [place] [address] [address] Consulting Physician Endocrinology Diabetes & Metabolism 08/12/23 [place] [address] [address] Referring Physician Nephrology 01/25/24
--- OUTSIDE RECORDS SUMMARY | 2024-06-21 15:06 | XMS_ITS | Encounter Summary ---
Author Organization [facility] Address [facility] [place] [address] Care Team Providers Care Space Control Agent Name Role Phone Lisset Luis [facility] Primary Care Provider + Raymond Brunson MD Unavailable [phone] Gabriele Doshi MD Unavailable [phone] Encounter Details Date Type Department Care Team (Late st Contact Info) Description 12/25/2023 MyChart Message Enc [facility] Medical Group Family & Internal Medicine [address] [address] Lisset Luis, [address] [place] [address] urine culture Social History Tobacco Use Types [...] st Contact Info) Description 07/04/2024 10:40 AM AUTOMOBILE CONTRACT CLERK Office Visit [facility] Family & Internal Medicine [facility] [address] [place] [address] Lisset Luis FNP-BC [address]10 [facility], [address] [phone] 09/12/2024 10:40 AM CDT Office Visit [facility] Family & Internal [facility] [address] [place] [address] Lisset Luis FNP-BC [address] [facility], [address] [address] documented as of this encounter Visit Diagnoses Not on filedocumented in this encounter Care Teams Space Control Agent Relationship Specialty Start Date End Date Lisset Luis FNP-BC [address] [facility], [address] [phone] PCP - General Nurse Practitioner Family 01/27/23 Raymond Brunson MD [address] [address] CARDIOVASCULAR DISEASE 06/04/23 Gabriele Doshi MD [address] [address] [address] [place] [address] Referring Physician NEPHROLOGY 06/04/23 documented as of this encounter
--- OUTSIDE RECORDS SUMMARY | 2024-06-21 15:06 | XMS_ITS | Encounter Summary ---
Author Organization [facility] Address [facility] [place] [address] Care Team Providers Care Lime Supervisor Name Role Phone Lisset Luis [facility] Primary Care Provider + Raymond Brunson MD Unavailable [phone] Gabriele Doshi MD Unavailable [phone] Encounter Details Date Type Department Care Team (Late st Contact Info) Description 01/13/2024 [employer]CE[employer] Software Pvtt Message Enc [facility] Medical Group Family & Internal Medicine [address] [address] Lisset Luis, [address] [place] [address] Jardiance Social History Tobacco Use Types Packs/Day [...] place to sleep or slept in a fdc (including now)? No 02/02/2023 Comments No Sex [...] the office and is recommended by her Edge Cutter. I would recommend if she plans to [...] st Contact Info) Description 07/04/2024 10:40 AM MINK FARMER Office Visit [facility] Family & Internal Medicine [facility] [place] [address] [place] [phone] Lisset Luis FNPYan [address] [address], [address] [place] [address] 09/12/2024 10:40 AM CDT Office Visit [facility] Family & Internal Medicine [facility] [address] [place] [phone] Lisset Luis FNP-BC [address] [address], [address] [place] [address] documented as of this encounter Visit Diagnoses Not on filedocumented in this encounter Care Teams Lime Supervisor Relationship Specialty Start Date End Date Lisset Luis FNP-BC [address] [address], [address] [address] PCP - General Nurse Practitioner Family 01/27/23 Raymond Brunson MD [address] [address] CARDIOVASCULAR DISEASE 06/04/23 Gabriele Doshi MD 6812 [facility] [address] [place] [address] Referring Physician NEPHROLOGY 06/04/23 documented as of this encounter
--- OUTSIDE RECORDS SUMMARY | 2024-06-21 15:06 | XMS_ITS | Encounter Summary ---
Author Organization [facility] Address [facility] [place] [address] Care Team Providers Care Solution Coordinator Name Role Phone Lisset Luis [facility] Primary Care Provider + Raymond Brunson MD Unavailable [phone] Gabriele Doshi MD Unavailable Reason for Visit * Reason Onset Date Comments Appointment Request 06/15/2024 Encounter Details Date Type Department Care Team (Late st Contact Info) Description 06/15/2024 MyCWhoist Message Enc [facility] Medical Group Family & Internal Medicine [address] [address] Lisset Luis, [address] [place] [address] Mom? s falls Social History Tobacco Use [...] RN - 06/15/2024 4:29 PM CST Noted. N RESOURCES SAFETY MANAGER * Radha Goyal - 06/15/2024 4:18 PM CST Paige called and set up an apt for [facility] on 07/04. She was put on the wait list to try to get an earlier opening. N RESOURCES SAFETY MANAGER * JENI Haynes - 06/15/2024 12:30 PM CST She will need a [id number] to order a hospital bed. N RESOURCES SAFETY MANAGER * Jackie Hall RN - 06/15/2024 11:36 AM CST Please advise? N RESOURCES SAFETY MANAGER documented in this encounter Plan of Treatment Upcoming Encounters Date Type Department Care Team (Late st Contact Info) Description 07/04/2024 10:40 AM HUMAN RESOURCES SAFETY MANAGER Office Visit [facility] Family & Internal Medicine [facility] [address] [place] [address] Lisset Luis FNP-BC [address] [facility], [address] [address] 09/12/2024 10:40 AM CDT Office Visit [facility] Family Internal [facility] [address] [place] [phone] Lisset Luis FNP-BC [address] [facility], [address] [address] documented as of this encounter Visit Diagnoses Not on filedocumented in this encounter Care Teams Solution Coordinator Relationship Specialty Start Date End Date Lisset Luis FNP-BC [address] [facility], [address] [address] PCP - General Nurse Practitioner Family 01/27/23 Raymond Brunson MD [address] [address] CARDIOVASCULAR DISEASE 06/04/23 Gabriele Doshi MD 6812 [facility] [address] [place] [address] Referring Physician NEPHROLOGY 06/04/23 documented as of this encounter
--- OUTSIDE RECORDS SUMMARY | 2024-06-21 15:06 | XMS_ITS | Encounter Summary ---
Author Organization [facility] Address Counts include 234 beds at the [facility] [place] [address] Care Team Providers Care Court Transcriber Name Role Phone TobyLisset church [facility] Primary Care Provider + Raymond Brunson MD Unavailable [phone] Gabriele Doshi MD Unavailable [phone] Reason for Referral * Consultation/Treatment (Routine) - New Request Specialty Diagnoses / Procedures Referred By Zenaida grady Referred To Contact PAIN MANAGEMENT Diagnoses Lumbar radiculopathy Procedures OFFICE/OUTPATIENT NEW LOW MDM 30-44 MINUTES OFFICE/OUTPT VISIT,NEW,LEVL IV OFFICE/OUTPT VISIT,NEW,LEVL V OFFICE/OUTPT VISIT,EST,LEVL III OFFICE/OUTPT VISIT,EST,LEVL IV OFFICE/OUTPT VISIT,EST,LEVL V Shannan Gordon MD [facility] [address] [place] [address] Phone: tel: fax: Referral ID Status Reason Start Date Expiration Date Visits Requested Visits Authorized [id number] New Request Specialty Services 01/19/2024 01/18/[address] Hernández for medical marijuana Encounter Details Date Type Department Care Team (Late st Contact Info) Description 01/19/2024 Telephone [facility] [place], [place] [id number] [id number] Shannan Gordon MD [facility] [address] [place], [place] [phone] Social History Tobacco Use Types Packs/Day Years [...] money to buy more. Never true 02/03/20 Within the past 12 months, t he [...] st Contact Info) Description 07/04/2024 10:40 AM LACQUER COATER Office Visit [facility] Medical Group Family & Internal Medicine [facility] [address] [place] [address] Lisset Luis FNP-BC [address] [address], [address] [address] 09/12/2024 10:40 AM CDT Office Visit [facility] Medical Group Family & Internal Medicine - [place] [address] [place] [address] Lisset Luis FNP-BC [address] [address]ice, [address] [address] Scheduled Referrals Name Type Priority Associated Diagnoses Orde r Schedule Ambulatory Referral to Pain Referral Routine Lumbar radiculopathy Ordered: 01/19/2024 documented as of this encounter Visit Diagnoses Diagnosis Lumbar radiculopathy- Primary Thoracic or lumbosacral neuritis or radiculitis, unspecified documented in this encounter Care Teams Court Transcriber Relationship Specialty Start Date End Date Lisset Luis FNP-BC [address] [facility], [address] [address] PCP - General Nurse Practitioner Family 01/27/23 Raymond Brunson MD [address] [address] CARDIOVASCULAR DISEASE 06/04/23 Gabriele Doshi MD 6812 [facility] [address] [address] Referring Physician NEPHROLOGY 06/04/23 documented as of this encounter
--- OUTSIDE RECORDS SUMMARY | 2024-06-21 15:06 | XMS_ITS | Clinical Summary ---
Author Organization [facility] Address [address] [place] [address] Care Team Providers Care Emblem Cutter Name Role Phone Lisset Luis MONORAIL CAR OPERATOR Primary Care Provider [phone] Shani Power MD Unavailable Gabriele Doshi MD Unavailable [phone] Allergies Active Allergy Reactions Criticality Noted Date [...] 2 diabetes mellitus without complication, unspecified whether watermaster insulin use (HCC) USE TO INJECT THREE TIMES DAILY DIRECTED 100 each 11 4 Active Active Problems Problem Noted Date Diagnosed Date Essential tremor 03/22/2024 Assessment & Plan (03/22/2024 2:11 PM ECHOCARDIOGRAPH TECHNICIAN): Patient presents with 5-years of progressive, bilateral, [...] Simvastatin 10mg. Last lipid panel: 02/27/23 LDL=67, VJ=439. Renal artery stenosis 04/14/2023 CKD stage 3 [...] Department Care Team Description 03/31/2024 Orders Only [facility] Medical Group Diabetes and Endocrinology [address] [place] [address] Provider, MD Eliud 03/22/2024 2:00 PM ECHOCARDIOGRAPH TECHNICIAN Clinical Support [facility] Movement Disorders [address] [place] [phone] Tremor 03/22/2024 1:00 PM ECHOCARDIOGRAPH TECHNICIAN Office Visit [facility] Movement Disorders [address] [place] [phone] Davis Melo MD Essential tremor (Primary Dx); [...] on file Legal Sex Female 3:27 AM ECHOCARDIOGRAPH TECHNICIAN Gender Identity Not on file Sexual Orientation Not on file Obstetrics History Last Filed Vital Signs Vital Sign Reading Time Taken Comments Blood Pressure 177/69 03/22/2024 1:00 PM ECHOCARDIOGRAPH TECHNICIAN Pulse 96 03/22/2024 1:00 PM ECHOCARDIOGRAPH TECHNICIAN Temperature 36.4 ??C (97.5 ??F) 03/22/2024 1:00 PM CS T Respiratory Rate 16 01/25/2024 11:39 AM CDT Oxygen Saturation 97% 12/01/2023 2:39 PM CDT Inhaled Oxygen Concentration - - Weight 76.2 kg (168 lb) 03/22/2024 1:00 PM ECHOCARDIOGRAPH TECHNICIAN Height 162.6 cm (5' 4.02 ) 01/25/2024 [...] ed Result - Final Performing Organization Address [facility]/ZIP Co de Phone Number [facility] * (ABNORMAL) [...] 35 Units/L [facility] SCRIBED eGFR in NonAfrican Bulgarian 41 >=60 - NA [facility] Blood 02/27/2023 8:44 AM CDT us Historical Provider LAB BLOOD ORDERABLES Edit ed Result - Final [facility] from Last 3 Months or Most Recently Relevant to Health Maintenance Insurance MEDICARE [employer] ACCESS OOS MEDICARE [employer] ACCESS OOS Care Teams Emblem Cutter Relationship Specialty Start Date End Date Lisset Luis NP PCP - General Family Medicine 04/14/23 [place] [address] [address] [address] Consulting Physician Endocrinology Diabetes & Metabolism 08/12/23 [place] [address] [address] [address] Referring Physician Nephrology 01/25/24
--- OUTSIDE RECORDS SUMMARY | 2024-06-21 15:06 | XMS_ITS | Encounter Summary ---
Author Organization [facility] Address [facility] [place] [address] Care Team Providers Care Caustic Purification Operator Name Role Phone Lisset Luis [facility] Primary Care Provider + Raymond Brunson MD Unavailable [phone] Gabriele Doshi MD Unavailable Encounter Details Date Type Department Care Team (Late st Contact Info) Description 08/20/2023 MyCWorldStatet Message Enc [facility] Medical Group Family & Internal Medicine [address] [address] Lisset Luis, [address] [place] [address] Zoloft Social History Tobacco Use Types Packs/Day [...] place to sleep or slept in a nursing home (including now)? No 02/02/2023 Comments No Sex [...] st Contact Info) Description 07/04/2024 10:40 AM MUNITIONS WORKER Office Visit [facility] Family & Internal Medicine [address] [address] Lisset Luis FNP-BC [address]703 [facility], [address] [phone] 09/12/2024 10:40 AM CDT Office Visit [facility] Family & Internal [address] [address] Lisset Luis FNP-BC [address] [facility], [address] [phone] documented as of this encounter Visit Diagnoses Not on filedocumented in this encounter Care Teams Caustic Purification Operator Relationship Specialty Start Date End Date Lisset Luis FNP-BC [address] [address], [address] [place] [address] PCP - General Nurse Practitioner Family 01/27/23 Raymond Brunson MD [address] [facility] [address] [place] [address] CARDIOVASCULAR DISEASE 06/04/23 Gabriele Doshi MD [address] [address] [address] [place] [address] Referring Physician NEPHROLOGY 06/04/23 documented as of this encounter
--- OUTSIDE RECORDS SUMMARY | 2024-06-21 15:06 | XMS_ITS | Encounter Summary ---
Author Organization [facility] Address [facility] [place] [address] Care Team Providers Care Director Customer Name Role Phone Lisset Luis [facility] Primary Care Provider + Raymond Brunson MD Unavailable [phone] Gabriele Doshi MD Unavailable [phone] Encounter Details Date Type Department Care Team (Late st Contact Info) Description 05/06/2023 MyCDraftKingst Message Enc [facility] Medical Group Family & Internal Medicine [address] [address] Lisset Luis, [address] [place] [address] Pain Social History Tobacco Use Types Packs/Day [...] RN - 05/07/2023 3:42 PM CST noted R BARKER OPERATOR documented in this encounter Plan of Treatment Upcoming Encounters Date Type Department Care Team (Late st Contact Info) Description 07/04/2024 10:40 AM POWER BARKER OPERATOR Office Visit [facility] Family & Internal Medicine [address] [address] Lisset Luis FNP-BC [address] [facility], [address] [place] [address] 09/12/2024 10:40 AM CDT Office Visit [facility] Family & Internal [address] [phone] Lisset Luis FNP-BC [address] [facility] Alex, [address] [place] [address] documented as of this encounter Visit Diagnoses Not on filedocumented in this encounter Care Teams Director Customer Relationship Specialty Start Date End Date Lisset Luis, [facility] [address] [address], [address] [place] [address] PCP - General Nurse Practitioner Family 01/27/23 Raymond Brunson MD [address] [address] CARDIOVASCULAR DISEASE 06/04/23 Gabriele Doshi MD 6812 [facility] [address] [place] [address] Referring Physician NEPHROLOGY 06/04/23 documented as of this encounter
--- OUTSIDE RECORDS SUMMARY | 2024-06-21 15:06 | XMS_ITS | Encounter Summary ---
Author Organization [facility] Address [facility] [place] [address] Care Team Providers Care Fan Blade Truer Name Role Phone Lisset Luis [facility] Primary Care Provider + Raymond Brunson MD Unavailable [phone] Gabriele Doshi MD Unavailable Encounter Details Date Type Department Care Team (Late st Contact Info) Description 06/04/2023 Grabbedt Message Enc [facility] Medical Group Family & Internal Medicine [address] [address] Lisset Luis, [address] [place] [address] Doppler Social History Tobacco Use Types Packs/Day [...] st Contact Info) Description 07/04/2024 10:40 AM HANDMADE TILE ARTIST Office Visit [facility] Family & Internal [address] [address] Lisset Luis FNP-BC [address] [facility], [address] [id number] 09/12/2024 10:40 AM CDT Office Visit [facility] Family & Internal [address] [address] Lisset Luis FNP-BC [address] Avila Brice, [address] [phone] documented as of this encounter Visit Diagnoses Not on filedocumented in this encounter Care Teams Fan Blade Truer Relationship Specialty Start Date End Date Lisset Luis FNP-BC [address] Av[address] Brice, [address] [place] [address] PCP - General Nurse Practitioner Family 01/27/23 Raymond Brunson MD [address] [place] [address] CARDIOVASCULAR DISEASE 06/04/23 Gabriele Doshi MD [address] [address] [address] [place] [address] Referring Physician NEPHROLOGY 06/04/23 documented as of this encounter
--- OUTSIDE RECORDS SUMMARY | 2024-06-21 15:06 | XMS_ITS | Encounter Summary ---
Author Organization [facility] Address [facility] [place] [address] Care Team Providers Care Graduate Fellow Name Role Phone Lisset Luis Primary Care Provider + Raymond Brunson MD Unavailable [phone] Gabriele Doshi MD Unavailable [phone] Reason for Referral * Imaging (Urgent) - Authorized Specialty Diagnoses / Procedures Referred By Zenaida grady Referred To Contact RADIOLOGY Diagnoses Cerebrovascular accident (CVA) due to embolism of left anterior cerebral artery (CMS/HCC HHS/HCC) Subclavian artery stenosis (CMS/HCC) Procedures ART DUPLEX UP LT Lisset Luis FNP-BC [address] [facility], [address] [place] [address] Phone: tel: fax: Referral ID Status Reason Start Date Expiration Date V isits Requested Visits Authorized [id number] Authorized 06/10/2023 07/09/2024 1 1 TS ANCHOR * Surgical (Urgent) - New Request Specialty Diagnoses / Procedures Referred By Zenaida grady Referred To Contact VASCULAR SURGERY Diagnoses Cerebrovascular accident (CVA) due to embolism of left anterior cerebral artery (CMS/HCC HHS/HCC) Subclavian artery stenosis (CMS/HCC) Procedures OFFICE/OUTPATIENT NEW LOW MDM 30-44 MINUTES OFFICE/OUTPT VISIT,NEW,LEVL IV OFFICE/OUTPT VISIT,NEW,LEVL V OFFICE/OUTPT VISIT,EST,LEVL III OFFICE/OUTPT VISIT,EST,LEVL IV OFFICE/OUTPT VISIT,EST,LEVL V Lisset Luis [facility] [address] [facility], [address] [place] [address] Phone: tel: [place]: [place] [address] [place] [address] Phone: tel: fax: Referral ID Status Reason Start Date Expiration Date Visits Requested Visits Authorized [id number] New Request Specialty Services 06/10/2023 07/09/2024 1 1 TS ANCHOR * Consultation/Treatment (Routine) - Closed Specialty Diagnoses / Procedures Referred By Contdonny t Referred To Contact PAIN MANAGEMENT Diagnoses Cerebrovascular accident (CVA) due to embolism of left anterior cerebral artery ([facility]) DDD (degenerative disc disease), 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, sciatica laterality unspecified Chronic midline low back pain without sciatica Procedures OFFICE/OUTPATIENT NEW [facility] 30-44 MINUTES OFFICE/OUTPT VISIT,NEW,LEVL IV OFFICE/OUTPT VISIT,NEW,LEVL V OFFICE/OUTPT VISIT,EST,LEVL III OFFICE/OUTPT VISIT,EST,LEVL IV OFFICE/OUTPT VISIT,EST,LEVL V Lisset Luis [facility] [address] [facility], [address] [place] [address] Phone: tel: fax: Davis Villareal MD [address] [place] [address] Phone: tel: fax: Referral ID Status Reason Start Date Expiration Date V isits Requested Visits Authorized [id number] Closed Specialty Services 06/10/2023 06/10/2024 99 99 Scheduling Instructions Requests [facility]. TS ANCHOR Encounter Details Date Type Department Care Team (Late st Contact Info) Description 06/08/2023 [facility] Message Enc [facility] Medical Group Family & Internal Medicine [facility] [address] [place] [address] Lisset Luis FNP-BC [address] [facility] [address] [place] [address] Referrals Social History Tobacco Use [...] 4:09 PM CST Referrals have been entered. TS ANCHOR * JENI Haynes - 06/10/2023 3:33 PM CST Okay for pain management referral to Dr. Villareal [facility] for lumbar spinal stenosis and chronic lower back pain. Imaging should be up to date for pain management. Dr. Doshi, Nephrology, should be able toorder any imaging he would like through [facility]. TS ANCHOR * Jackie Hall RN - 06/10/2023 10:57 AM CST Order for walker has been faxed to [facility] TS ANCHOR * Jackie Hall RN - 06/10/2023 10:51 AM CST Ok for referrals?? TS ANCHOR documented in this encounter Plan of Treatment Upcoming Encounters Date Type Department Care Team (Late st Contact Info) Description 07/04/2024 10:40 AM SPORTS ANCHOR Office Visit [facility] Family & Internal [address] [address] Lisset Luis FNP-BC [phone] [place] [address], [address] [place] [address] 09/12/2024 10:40 AM CDT Office Visit [facility] Family & Internal Medicine [address] [phone] Lisset Luis FNP-BC [address] [facility], [address] [place] [address] Scheduled Orders Name Type Priority Associated Diagnoses Orde r Schedule US ART DUPLEX UP LT Ultrasound MINI Cerebrovascular accident (CVA) due to embolism of left anterior cerebral artery (CMS/HCC HHS/HCC) Subclavian artery stenosis Expected: 06/10/2023, Expires: 06/10/2024 Scheduled Referrals Name Type Priority Associated Diagnoses Orde r Schedule Ambulatory Referral to Pain Management Referral Routine Cerebrovascular accident (CVA) due to embolism of left anterior cerebral artery (CMS/HCC HHS/HCC) DDD (degenerative disc disease), 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, sciatica laterality unspecified Chronic midline low back pain without sciatica Ordered: 06/10/2023 Ambulatory referral to Vascular Surgery (OTHER) Referral MINI Cerebrovascular accident (CVA) due to embolism of left anterior cerebral artery (CMS/HCC HHS/HCC) Subclavian artery stenosis Ordered: 06/10/2023 documented as of this encounter Visit Diagnoses Diagnosis Cerebrovascular accident (CVA) due to embolism of left anterior cerebral artery (CMS/HCC HHS/HCC)- Primary DDD (degenerative disc disease), lumbar Degeneration of lumbar or lumbosacral intervertebral disc 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
--- OUTSIDE RECORDS SUMMARY | 2024-06-21 15:06 | XMS_ITS | Encounter Summary ---
Author Organization [facility] Address [facility] [place] [address] Care Team Providers Care Cocoa Bean Roaster Helper Name Role Phone Lisset Luis [facility] Primary Care Provider + Raymond Brunson MD Unavailable [phone] Gabriele Doshi MD Unavailable [phone] Encounter Details Date Type Department Care Team (Late st Contact Info) Description 12/02/2023 MyCRestorsea Holdingst Message Enc [facility] Medical Group Family & Internal Medicine [address] [address] Lisset Luis, [address] [place] [address] [facility] referral Social History Tobacco Use Types Packs/Day [...] Cormier MA - 12/03/2023 3:17 PM CDT Referral [facility] Department of Neurology [address] [place] [address] Movement Disorder's clinic documented in this encounter Plan of Treatment Upcoming Encounters Date Type Department Care Team (Late st Contact Info) Description 07/04/2024 10:40 AM TIE PRESSER Office Visit [facility] Medical [facility] Family & Internal Medicine [address] [address] Lisset Luis, [facility] [address] 09/12/2024 10:40 AM CDT Office Visit [facility] Family & Internal Medicine [address] [address] Lisset Luis [facility] [address] [address], [address] [place] [address] documented as of this encounter Visit Diagnoses Not on filedocumented in this encounter Care Teams Cocoa Bean Roaster Helper Relationship Specialty Start Date End Date Lisset Luis FNP- [address] [address], [address] [place] [address] PCP - General Nurse Practitioner Family 01/27/23 Raymond Brunson MD [address] [address] CARDIOVASCULAR DISEASE 06/04/23 Gabriele Doshi MD 6812 [facility] [address] [place] [address] Referring Physician NEPHROLOGY 06/04/23 documented as of this encounter
--- OUTSIDE RECORDS SUMMARY | 2024-06-21 15:06 | XMS_ITS | Encounter Summary ---
Author Organization [facility] Address Pending [facility] to [facility] [place] [address] Care Team Providers Care Talent Development Consultant Name Role Phone TobyLisset sosa [facility] Primary Care Provider + Raymond Brunson MD Unavailable Gabriele Doshi MD Unavailable Encounter Details Date Type Department Care Team (Late st Contact Info) Description 01/13/[address] Enc [facility] [place], [place] [phone] [id number] Shannan Gordon MD [facility] [address] [place] [address] Medical card Social History Tobacco [...] st Contact Info) Description 07/04/2024 10:[address] Office Visit [facility] Family & Internal [address] [address] Lisset Luis FNP-BC [address] [facility], [address] [phone] 09/12/2024 10:40 AM CDT Office Visit [facility] Family & Internal [facility] [address] [place] [address] Lisset Luis FNP-BC [address] [facility], [address] [phone] documented as of this encounter Visit Diagnoses Not on filedocumented in this encounter Care Teams Talent Development Consultant Relationship Specialty Start Date End Date Lisset Luis FNP-BC [address] [address], [address] [place] [address] PCP - General Nurse Practitioner Family 01/27/23 Raymond Brunson MD [facility] [address] [place] [address] CARDIOVASCULAR DISEASE 06/04/23 Gabriele Doshi MD [address] [address] [address] [place] [address] Referring Physician NEPHROLOGY 06/04/23 documented as of this encounter
--- OUTSIDE RECORDS SUMMARY | 2024-06-21 15:06 | XMS_ITS | Encounter Summary ---
Author Organization [facility] Address [facility] [place] [address] Care Team Providers Care Packager Name Role Phone Coco MuñizP-JEFFRY Primary Care Provider + Raymond Brunson MD Unavailable Gabriele Doshi MD Unavailable [phone] Reason for Referral * Imaging (Routine) - Closed Specialty Diagnoses / Procedures Referred By Zenaida grady Referred To Contact RADIOLOGY Diagnoses Multiple pulmonary nodules Procedures CT CHEST WO CON Coco Muñiz FNP-JEFFRY [id number] [place] [address], [address] [place] [address] Phone: tel: fax: [facility] [address] [facility] [address] [place] [id number] Phone: tel: fax: Referral ID Status Reason Start Date Expiration Date Visits Re quested Visits Authorized [id number] Closed 04/23/2023 04/23/2024 1 1 DISTRIBUTOR Encounter Details Date Type Department Care Team (Late st Contact Info) Description 04/13/2023 [employer] Message Enc [facility] Medical Group Family & Internal Medicine [address] [address] Coco Muñiz, [facility] [address] [address], [address] [place] [address] CT scan Social History Tobacco [...] Haynes - 04/24/2023 4:24 PM CST Noted DISTRIBUTOR * Jackie Hall RN - 04/24/2023 11:[address] report faxed to [facility] Pain Management [phone] Inquiring about the need for a thoracic MRI in addition to the lumbar MRI-which is scheduled on 05/05/2023. Requested a return call. DISTRIBUTOR * Jackie Hall RN - 04/23/2023 10:22 [...] og as lumbar spine. Message left at [phone] to return call. DISTRIBUTOR documented in this encounter Plan of Treatment Upcoming Encounters Date Type Department Care Team (Late st Contact Info) Description 07/04/2024 10:40 AM WORK DISTRIBUTOR Office Visit [facility] Family & Internal Medicine [address] [address] Coco Muñiz FNP-BC [address] [facility], [address] [place] [phone] 09/12/2024 10:40 AM CDT Office Visit [facility] Family & Internal Medicine [facility] [address] [place] [address] Coco Muñiz FNP-BC [address] [facility], [address] [place] [address] documented as of this encounter Results * CT CHEST WO CON (06/02/2023 1:33 PM WORK DISTRIBUTOR) Anatomical Region Laterality Modality Chest Computed Tomogra phy 06/02/2023 1:55 PM WORK DISTRIBUTOR Impressions 06/02/2023 2:10 PM WORK DISTRIBUTOR IMPRESSION: 1. ??Follow-up CT of the chest in 6 months would be of benefit. Multiple pulmonary nodules in both lung apices as detailed above.. 2. ??No infiltrate or effusion. Mild atelectasis versus scar in the lung bases. 3. ??Small pericardial effusion. If indicated, follow-up with echocardiogram. Ordered By: COCO MUÑIZ Interpreted By: Kory Rae, 06/02/2023 1:55 PM Narrative 06/02/2023 2:10 PM WORK DISTRIBUTOR EXAMINATION: CT CHEST WITHOUT CONTRAST EXAM DATE/TIME: [...] change in thoracic spine with multiple old zafk-xb-ekmwwvox compression deformities. Intrathecal electrodes noted. Procedure Note [...] degenerative change in thoracic spine with multiple pvfdtqk-ln-itxtzqic compression deformities. Intrathecal electrodes noted. IMPRESSION: 1. Follow-up CT of the chest in 6 months would be of benefit. Multiplepulmonary nodules in both lung apices as detailed above.. 2. No infiltrate or effusion. Mild atelectasis versus scar in the lungbases. 3. Small pericardial effusion. If indicated, follow-up withechocardiogram. Ordered By: COCO MUÑIZ Interpreted By: Kory Rae, 06/02/2023 1:55 PM us Coco Muñiz [facility]- CT Final Re sult documented in this encounter Visit Diagnoses Diagnosis Multiple pulmonary nodules- Primary Other nonspecific abnormal finding of lung field documented in this encounter Care Teams Packager Relationship Specialty Start Date End Date Coco Muñiz, [facility] [address] [facility], [address] [place] [address] PCP - General Nurse Practitioner Family 01/27/23 Raymond Brunson MD [address] [address] CARDIOVASCULAR DISEASE 06/04/23 Gabriele Doshi MD [address] [address] [address] [place] [address] Referring Physician NEPHROLOGY 06/04/23 documented as of this encounter
--- OUTSIDE RECORDS SUMMARY | 2024-06-21 15:06 | XMS_ITS | Encounter Summary ---
Author Organization [facility] Address [facility] [place] [address] Care Team Providers Care Office Agent Name Role Phone Lisset Luis [facility] Primary Care Provider + Raymond Brunson MD Unavailable [phone] Gabriele Doshi MD Unavailable [phone] Encounter Details Date Type Department Care Team (Late st Contact Info) Description 01/05/2024 [email or web address] Message Enc [facility] Medical Group Family & Internal Medicine [address] [address] Lisset Luis, [address] [place] [address] Blood glucose monitor Social History Tobacco Use [...] st Contact Info) Description 07/04/2024 10:40 AM PLUSH FINISHER Office Visit [facility] Family & Internal Medicine [address] [address] Lisset Luis FNP-BC [address] [facility], [address] [phone] 09/12/2024 10:40 AM CDT Office Visit [facility] Family & Internal [address] [address] Lisset Luis FNP-BC [address] [facility], [address] [phone] documented as of this encounter Visit Diagnoses Not on filedocumented in this encounter Care Teams Office Agent Relationship Specialty Start Date End Date Lisset Luis FNP-BC [address] [address], [address] [place] [address] PCP - General Nurse Practitioner Family 01/27/23 Raymond Brunson MD [address] [facility] [address] [place] [address] CARDIOVASCULAR DISEASE 06/04/23 Gabriele Doshi MD [address] [address] [address] [place] [address] Referring Physician NEPHROLOGY 06/04/23 documented as of this encounter
--- OUTSIDE RECORDS SUMMARY | 2024-06-21 15:06 | XMS_ITS | Clinical Summary ---
Author Organization [facility] Address [facility] [place] [address] Care Team Providers Care Analytic Programmer Name Role Phone Lisset Luis Gem [facility] Primary Care Provider + Raymond Brunson MD Unavailable [phone] Gabriele Doshi MD Unavailable [phone] Allergies Active Allergy Reactions Criticality Noted [...] 400, take 50 units 03/17/20 23 Active [place] & Syringes MiscIndications:Angela betes mellitus ([facility]),Type 2 diabetes mellitus with diabetic polyneuropathy, with long-term current use of insulin ([facility]),Type 2 diabetes mellitus with other circulatory complication, with long-term current use of insulin ([facility]) Injects insulin 3 times daily and PRN [...] polyneuropathy, with long-term current use of insulin ([facility]),Cerebrovas cular accident (CVA) due to embolism of left anterior cerebral artery ([facility]) Take 1 tablet (20 mg total) by [...] empagliflozin (JARDIANCE) 10 MG tabletIndications:D iabetes mellitus ([facility]) Take 1 tablet (10 mg total) by mouth daily. 30 tablet 12/30/19 24 Active Blood Glucose Monitoring Suppl (BLOOD GLUCOSE MONITOR SYSTEM) w/Device KitIndications:Diab etes mellitus ([facility]) 1 each by Does not apply route 4 (four) times daily before meals and nightly. 1 kit 01/07/20 24 Active Glucose Blood (Add2paperTOUCH ULTRA) test stripIndications:Ty pe 2 diabetes mellitus with diabetic polyneuropathy, with long-term current use of insulin ([facility]) 1 strip by Other route as needed. [...] 12 (twelve) hours. 02/15/20 24 Active Lancets (Add2paperTOUCH DELICA PLUS [id number]) [facility] TEST BLOOD SUGAR FOUR TIMES DAILY BEFORE [...] BY MOUTH EVERY NIGHT 90 tablet 1 04/01/20 24 Active spironolactone (ALDACTONE) 25 MG tabletIndications:E ssential hypertension TAKE 1 TABLET(25 MG) BY MOUTH DAILY 90 tablet 04/19/20 24 Active omeprazole (PRILOSEC) 20 MG capsuleIndications: Gastroesophageal reflux disease, unspecified whether esophagitis present Take 1 capsule (20 mg total) by mouth daily. 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 Obesity (BMI 30-39.9) 02/15/2023 Chronic midline low back pain without sciatica 1 Diabetes mellitus ([facility]) 02/13/2023 Gout 02/05/2023 Sensorineural hearing loss (SNHL) of both ears 0 01/30/2023 SEBASTIEN (obstructive sleep apnea) 12/16/2021 Stage 3b chronic kidney disease ([facility] ) 10/25/2020 Chronic diastolic congestive heart failure ([facility]) 10/24/2020 Overview (02/15/2023): Last Assessment & Plan: Continue beta-loi and EDVIN inhibitor. -remains on lasix gtt, may stop today, Cr trending up - ECHO with normal EF, severe diastolic dysfunction. -appreciate cardiology recs Cerebrovascular accident (CV A) due to embolism of left anterior cerebral artery ([facility]) 05/05/2018 Coronary atherosclerosis of hughes coronary vess el 02/17/2014 Essential hypertension 02/17/2014 Overview (02/15/2023): Last Assessment & Plan: Continue home medications with hold parameters Hyperlipidemia associated wi th type 2 diabetes mellitus ([facility]) 02/17/2014 Overview (02/15/2023): Last Assessment & Plan: LDL is 26, HDL is 47 Continue current statin Moderate episode of recurren t major depressive disorder ([facility]) 02/17/2014 Overview (02/15/2023): Last Assessment & Plan: Continue home medications Type 2 diabetes mellitus wit h diabetic polyneuropathy, with long-term current use of insulin ([facility]) 02/17/2014 Overview (02/15/2023): Last Assessment & Plan: Continue basal Lantus at slightly lower dose. 50 units instead of her normal 60. -conitnue Humalog 8 units 3 times daily, which is lower than her typical. - Corrective dose level 3 Resolved Problems Problem Noted Date Diagnosed Date Resolved Date Cellulitis 02/02/2023 02/05/2023 Encounters Date Type Department Care Team Description 06/15/2024 SiOx Message [facility]ful [facility] Family & Internal Medicine [address] [address] Lisset Luis FNP-BC Mom? s falls 05/20/2024 SiOx Message [facility] Family & Internal Medicine [address] [address] Lisset Luis FNP-JEFFRY update on my mother from Last 3 [...] MCG/ 0.5 ML DOSE 08/13/2020,07/17/2020 MODERNA COVID-19 (WIRELESS CELLULAR TECHNICIAN MARY ANN SHIVA), MRNA, LNP-S, PF, 50 MCG/ 0.25 ML DOSE 10/04/2021 Pneumococcal (Pneumovax 23) 02/15/2010 Pneumococcal (Prevnar 13) 09/19/2016 Shingrix 10/26/2018,08/30/2018,08/06/2018 Tdap (Generic) 05/18/1976 Zoster (Zostavax) 35921 Unt/0.65Ml 02/15/2013 Family History Medical History Relation Comments Cancer Brother Heart Disease Brother Hypertension Brother Kidney Disease Brother Asthma Daughter 1 Cancer Daughter 2 Early Father Heart Disease Father Hypertension Father CT Father Arthritis Mother CHF Mother Cancer Mother [...] st Contact Info) Description 07/04/2024 10:40 AM DUMPER CENTRAL CONCRETE MIXING PLANT Office Visit [facility] Family & Internal Medicine [facility] [address] [place] [address] Lisset Luis, [facility] [address] [address], [address] [place] [id number] 09/12/2024 10:40 AM CDT Office Visit [facility] Family & Internal Medicine [facility] [address] [place] [address] Lisset Luis, [facility] [address] [facility] [address], [address] [place] [address] Health Maintenance Due Date Last Done Comments Kidney Health Evaluation 1940 Annual Medicare Wellness Visit 2006 ASCVD LDL 02/28/2024 02/27/2023 Lipid Panel 02/28/2024 02/27/2023 Hemoglobin A1C 03/26/2024 12/25/2023, 05/0 12/2023, 03/12/2023, Additional history exists PHQ-2 (Physician [place]) 05/18/2024 07/22/2023 RSV Immunization or 60+ Years [...] this topic Medical Devices Implanted Type Area Insurance Claims Specialist Device Identifier Shelf Expiration Date Model / Serial / Lot Stimulator Lead-09/29/2014 Implanted:Qty: 1 on 09/29/2014 Lead Implant [employer] [id number] / / [id number] Stimulator Lead-09/29/2014 Implanted:Qty: 1 on 09/29/2014 Lead Implant [employer] [id number] / / [id number] Stimulator Implant-09/20/19 Implanted:Qty: 1 on 09/19/2014 Stimulator Implant Spine Lumbar [employer] [id number] / [id number] H / Description:MR Conditional a t 1.5 T only, full body eligible (follow most recent MRI technical manual conditions), stimulation needs to be turned off prior to MRI Procedures Procedure Name Priority Date/Time Associated Diagnosis Comments DIABETIC RETINOPATHY EXAM (NEGATIVE)(SCAN ORDER) Routine 03/14/2024 HEMOGLOBIN, GLYCOSYLATED Routine 12/25/2023 Type 2 diabetes mellitus with diabetic polyneuropathy, with long-term current use of insulin ([facility]) LIPID PANEL Routine 02/27/2023 8:44 AM CDT from Last 3 Months or Most Recently Relevant to Health Maintenance Results * DIABETIC RETINOPATHY EXAM (NEGATIVE) (03/14/2024) [facility] Scanned SCANNING Final Resu lt HS ONBASE * HEMOGLOBIN, GLYCOSYLATED (12/25/2023) HGB A1C 9.9 % [id number] T IJEOMA LITTLE 12/25/2023 us Lisset Rabago Toby [facility] Final Re sult [id number] [place] [address] [place] [address], * (ABNORMAL) LIPID PANEL (02/27/2023 8:44 AM CDT) [facility] Signature CHOLESTEROL 153 <200 mg/dL [facility] HDL 46(L) > OR = 50 mg/dL [facility] TRIGLYCERIDES 332(H) <150 mg/dL [facility] Comment: If a non-fasting specimen was collected, consider repeat triglyceride testing on a fasting specimen if clinically indicated. Juliana et al. J. of Clin. Lipidol. 2015;9:129-169. LDL (CALCULATED) 67 mg/dL (calc) [facility] Comment: Reference range: <100 Desirable range <100 mg/dL for primary prevention; ?? <70 mg/dL for patients with CHD or diabetic patients with > or = 2 CHD risk factors. LDL-C is now calculated using the Bhavin-Gonzalez calculation, which is a validated novel method providing better accuracy than the Friedewald equation in the estimation of LDL-C. Bhavin SS et al. ZION. 2013;310(19): 6814-4787 (http://education.[employer]/faq/HLY806) CHOL/HDL RATIO 3.3 <5.0 (calc) [facility] NON HDL CHOLESTEROL 107 <130 mg/dL (calc) [facility] Comment: For patients with diabetes plus 1 major ASCVD risk factor, treating to a non-HDL-C goal of <100 mg/dL (LDL-C of <70 mg/dL) is considered a therapeutic option. 02/27/2023 8:44 AM CDT 02/27/2023 8:50 AM CDT Narrative [facility] - [facility] - 02/28/2023 6:04 AM CDT FASTING:YES PATIENT UNABLE TO VOID; ADVISED TO RETURN FOR COLLECTION. FASTING: YES Resulting Agency Comment Performing Organization Information: ?Site ID: [id number] ?Name: [facility] ?Address: [address] [id number] ?Director: Dennis Lopez PhD Lisset Luis [facility] Final Re sult [facility] [address] [id number], from Last 3 Months or Most Recently Relevant to Health Maintenance Insurance MEDICARE [facility] Advance Directives * DNR (Latest Code Status on File) Date Activated Date Inactivated Comments 02/02/2023 3:42 PM 02/05/2023 4:04 PM Care Teams Analytic Programmer Relationship Specialty Start Date End Date Lisset Luis, [facility]-BC [address] [address], [address] [place] [address] PCP - General Nurse Practitioner Family 01/27/23 Raymond Brunson MD [address] [facility] [address] [place] [address] CARDIOVASCULAR DISEASE 06/04/23 Gabriele Doshi MD 6812 [facility] [address] [place] [address] Referring Physician NEPHROLOGY 06/04/23
--- OUTSIDE RECORDS SUMMARY | 2024-06-21 15:06 | XMS_ITS | Encounter Summary ---
Author Organization [facility] Address [facility] [place] [address] Care Team Providers Care Larriman Helper Name Role Phone Lisset Luis [facility] Primary Care Provider + Raymond Brunson MD Unavailable [phone] Gabriele Doshi MD Unavailable [phone] Encounter Details Date Type Department Care Team (Late st Contact Info) Description 10/29/2023 MyCHelvetat Message Enc [facility] Medical Group Family & Internal Medicine [address] [address] Lisset Luis, [address] [place] [address] [facility] neurology referral Social History Tobacco Use Types [...] st Contact Info) Description 07/04/2024 10:40 AM BOTANY LABORATORY ASSISTANT Office Visit [facility] Family & Internal [address] [address] Lisset Luis FNP-BC [address] [facility], [address] [id number] 09/12/2024 10:40 AM CDT Office Visit [facility] Family & Internal Medicine [address] [address] Lisset Luis FNP-BC [address] [facility], [address] [phone] documented as of this encounter Visit Diagnoses Not on filedocumented in this encounter Care Teams Larriman Helper Relationship Specialty Start Date End Date Lisset Luis FNP-BC [address] [address], [address] [place] [address] PCP - General Nurse Practitioner Family 01/27/23 Raymond Brunson MD [facility] [address] [place] [address] CARDIOVASCULAR DISEASE 06/04/23 Gabriele Doshi MD [address] [address] [address] [place] [address] Referring Physician NEPHROLOGY 06/04/23 documented as of this encounter
--- OUTSIDE RECORDS SUMMARY | 2024-06-21 15:06 | XMS_ITS | Encounter Summary ---
Author Organization [facility] Address [facility] [place] [address] Care Team Providers Care Grain Miller Helper Name Role Phone Toby Lisset Rabago [facility] Primary Care Provider + Raymond Brunson MD Unavailable [phone] Gabriele Doshi MD Unavailable [phone] Encounter Details Date Type Department Care Team (Late st Contact Info) Description 01/13/2024 Mojo Mobility Message Enc [facility] Medical Group Family & Internal Medicine [address] [address] Damari [facility] Provider CT Social History Tobacco [...] Yes 02/02/2023 6:35 PM CDT Anahy Vanegas RN Active * Do you have difficulty dressing [...] st Contact Info) Description 07/04/2024 10:40 AM RADAR AIR TRAFFIC CONTROLLER Office Visit [facility] Family & Internal [address] [address] Lisset Luis FNP-BC [id number] [place] [address] 09/12/2024 10:40 AM CDT Office Visit [facility] Family & Internal [address] [address] Lisset Luis [facility]- [address] [address], [address] [place] [address] documented as of this encounter Visit Diagnoses Not on filedocumented in this encounter Care Teams Grain Miller Helper Relationship Specialty Start Date End Date Lisset Luis FNP-BC [address], [address] [place] [address] PCP - General Nurse Practitioner Family 01/27/23 Raymond Brunson MD [address] [address] CARDIOVASCULAR DISEASE 06/04/23 Gabriele Doshi MD 6812 [facility] [address] [place] [address] Referring Physician NEPHROLOGY 06/04/23 documented as of this encounter
--- OUTSIDE RECORDS SUMMARY | 2024-06-21 15:06 | XMS_ITS | Encounter Summary ---
Author Organization [facility] Address [facility] [place] [address] Care Team Providers Care Waste Machine Tender Name Role Phone Lisset Luis [facility] Primary Care Provider + Raymond Brunson MD Unavailable [phone] Gabriele Doshi MD Unavailable Encounter Details Date Type Department Care Team (Late st Contact Info) Description 02/04/2023 MyChart Message Enc [facility] Medical Group Family & Internal Medicine [address] [address] Lisset Luis, [address] [place] [address] Follow up appt Social History Tobacco Use [...] a correction (including now)? No 02/02/2023 Comments Unknown Sex [...] st Contact Info) Description 07/04/2024 10:40 AM RESTRIKE HAMMER OPERATOR Office Visit [facility] Family & Internal Medicine [address] [address] Lisset Luis FNP-JEFRFY [address] [facility], [address] [place] [address] 09/12/2024 10:40 AM CDT Office Visit [facility] Family & Internal [address] [phone] Lisset Luis FNP-JEFFRY [address] [facility] Alex, [address] [address] documented as of this encounter Visit Diagnoses Not on filedocumented in this encounter Care Teams Waste Machine Tender Relationship Specialty Start Date End Date Lisset Luis, [facility]- [address] [address], [address] [place] [address] PCP - General Nurse Practitioner Family 01/27/23 Raymond Brunson MD [address] [address] CARDIOVASCULAR DISEASE 06/04/23 Gabriele Doshi MD 6812 [facility] [address] [place] [address] Referring Physician NEPHROLOGY 06/04/23 documented as of this encounter
--- OUTSIDE RECORDS SUMMARY | 2024-06-21 15:06 | XMS_ITS | Encounter Summary ---
Author Organization [facility] Address [facility] [place] [address] Care Team Providers Care Travel Accommodation Inspector Name Role Phone Lisset Luis [facility] Primary Care Provider + Raymond Brunson MD Unavailable [phone] Gabriele Doshi MD Unavailable [phone] Encounter Details Date Type Department Care Team (Late st Contact Info) Description 10/13/2023 MyCCro Yachtingt Message Enc [facility] Medical Group Family & Internal Medicine [address] [address] Lisset Luis, [address] [place] [address] Physical therapy Social History Tobacco Use Types [...] st Contact Info) Description 07/04/2024 10:40 AM TABLE RUNNER Office Visit [facility] Family & Internal [address] [address] Lisset Luis FNP-BC [address] [facility], [address] [phone] 09/12/2024 10:40 AM CDT Office Visit [facility] Family & Internal [address] [address] Lisset Luis FNP-BC [address] [facility], [address] [phone] documented as of this encounter Visit Diagnoses Not on filedocumented in this encounter Care Teams Travel Accommodation Inspector Relationship Specialty Start Date End Date Lisset Luis FNP-BC [address] [address], [address] [place] [address] PCP - General Nurse Practitioner Family 01/27/23 Raymond Brunson MD [address] [place] [address] CARDIOVASCULAR DISEASE 06/04/23 Gabriele Doshi MD [address] [address] [address] [place] [address] Referring Physician NEPHROLOGY 06/04/23 documented as of this encounter
--- OUTSIDE RECORDS SUMMARY | 2024-06-21 15:06 | XMS_ITS | Encounter Summary ---
Author Organization [facility] Address [facility] [place] [address] Care Team Providers Care Grain Farmworker Name Role Phone iLsset Luis [facility] Primary Care Provider + Raymond Brunson MD Unavailable [phone] Gabriele Doshi MD Unavailable [phone] Encounter Details Date Type Department Care Team (Late st Contact Info) Description 03/04/2023 MyCLivingly Mediat Message Enc [facility] Medical Group Family & Internal Medicine [address] [address] Lisset Luis, [address] [place] [address] A1C Social History Tobacco Use Types Packs/Day [...] st Contact Info) Description 07/04/2024 10:40 AM 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 Office Visit [facility] Family & Internal Medicine [address] [address] Lisset Luis FNP-BC [address] [facility], [address] [place] [phone] 09/12/2024 10:40 AM CDT Office Visit [facility] Family & Internal [address] [address] Lisset Luis FNP-BC [address] [facility] Babs, [address] [place] [address] documented as of this encounter Visit Diagnoses Not on filedocumented in this encounter Care Teams Grain Farmworker Relationship Specialty Start Date End Date Lisset Luis, [facility]- [address] [address], [address] [place] [address] PCP - General Nurse Practitioner Family 01/27/23 Raymond Brunson MD [address] [address] CARDIOVASCULAR DISEASE 06/04/23 Gabriele Doshi MD 6812 [facility] [address] [place] [address] Referring Physician NEPHROLOGY 06/04/23 documented as of this encounter
--- OUTSIDE RECORDS SUMMARY | 2024-06-21 15:06 | XMS_ITS | Encounter Summary ---
Author Organization [facility] Address [facility] [place] [address] Care Team Providers Care Single Pointed Operator Name Role Phone Lisset Luis [facility] Primary Care Provider + Raymond Brunson MD Unavailable Gabriele Doshi MD Unavailable [phone] Encounter Details Date Type Department Care Team (Late st Contact Info) Description 05/20/2024 MyCRamamiat Message Enc [facility] Medical Group Family & Internal Medicine [address] [address] Lisset Luis, [address] [place] [address] update on my mother Social History Tobacco [...] would recommend sending her readings to her carousel attendant. Unfortunately, if she is not taking her [...] to take medications or see specialist providers. BLOCK MAKER * Jackie Hall RN - 05/20/2024 3:34 PM CST Please review blood glucose numbers. BLOCK MAKER * Jackie Hall RN - 05/20/2024 11:43 AM CST Please review and advise BLOCK MAKER documented in this encounter Plan of Treatment Upcoming Encounters Date Type Department Care Team (Late st Contact Info) Description 07/04/2024 10:40 AM HAT BLOCK MAKER Office Visit [facility] Family & Internal [address] [address] Lisset Luis FNP-BC [address] [place] [address] Alex, [address] [phone] 09/12/2024 10:40 AM CDT Office Visit [facility] Family & Internal [address] [address] Lisset Luis FNP-BC [address] [facility], [address] [address] documented as of this encounter Visit Diagnoses Not on filedocumented in this encounter Care Teams Single Pointed Operator Relationship Specialty Start Date End Date Lisset Luis FNP-BC [address] [address], [address] [place] [address] [address] PCP - General Nurse Practitioner Family 01/27/23 Raymond Brunson MD [address] [address] CARDIOVASCULAR DISEASE 06/04/23 Gabriele Doshi MD 6812 [facility] [address] [place] [address] Referring Physician NEPHROLOGY 06/04/23 documented as of this encounter
[2024-06-21 15:44] LABS: Basophils Percent Auto 0.3 % (0.2-1.2); Hematocrit 30.6 % (37.0-47.0); Hemoglobin 10.2 g/dL (12.0-15.0); Immature Granulocyte Absolute 0.14 K/mm3 (0.00-0.031); Immature Granulocyte Percent A 1.3 % (0-0.5); Lymphocytes Absolute Auto 1.14 K/mm3 (0.9-3.2); Lymphocytes Percent Auto 10.4 % (18.3-44.2); Mean Corpuscular HGB Conc 33.3 g/dl (32-36); Mean Corpuscular Hemoglobin 26.8 pg (26-34); Mean Corpuscular Volume 80.3 fl (80-100); Mean Platelet Volume 10.1 fl (7.4-10.4); Monocytes Percent Auto 9.3 % (2.6-8.5); Neutrophils Absolute Auto 8.6 K/mm3 (1.3-6.7); Neutrophils Percent Auto 78.7 % (45.5-73.1); Platelet Count Result 300 k/mm3 (150-375); Red Blood Count 3.81 M/mm3 (4.2-5.4); Red Cell Distribution Width 13.7 % (11.5-14.5); White Blood Count 10.9 K/mm3 (4.5-10.0)
[2024-06-21] MEDS: LACTATED RINGERS 1,000 ML 999 ML IV CONT (15:48)
[2024-06-21] MEDS: ACETAMINOPHEN 500 MG TABLET 1000 MG PO (15:48)
[2024-06-21 15:49] LABS: Fractional Inspired Oxygen 21 %; HCO3 VBG 19.9 mEq/l (24.0-30.0); PCO2 VBG 33.7 mmHg (42.0-48.0); PO2 VBG < 27.0 mmHg (35.0-45.0); pH VBG 7.389 (7.300-7.400)
[2024-06-21 15:56] LABS: Beta-Hydroxybutyrate/Acetoacetate 2.14 mmol/L (0.02-0.27)
[2024-06-21 16:01] LABS: Alanine Aminotransferase 20 U/L (6-35); Albumin Level 3.4 g/dL (3.5-5.1); Alkaline Phosphatase 107 U/L (38-126); Anion Gap 14 mmol/L (4-12); Aspartate Amino Transferase 23 U/L (14-36); Bilirubin,Total 0.6 mg/dL (0.2-1.3); Blood Urea Nitrogen 26 mg/dL (7-17); Calcium 8.5 mg/dL (8.4-10.2); Carbon Dioxide 18 mmol/L (22-30); Chloride 96 mmol/L (98-107); Estimated Glomerular Filt Rate 46; Glucose 537 mg/dL (65-110); Magnesium 1.8 mg/dL (1.6-2.3); Potassium 4.5 mmol/L (3.4-5.0); Sodium 128 mmol/L (137-145)
[2024-06-21] MEDS: INSULIN HUMAN REGULAR (*BKC) 100 UNITS/ML IV PUSH (16:46)
[2024-06-21 16:57] VITALS: BP 144/80; PULSE 68; RESP 16; TEMP 36.6; O2SAT 98
[2024-06-21 17:26] LABS: Add Urine Microscopic? YES; Appearance Urine Clear (Clear); Bacteria Urine None Seen /hpf; Bilirubin Urine Negative (Negative); Blood Urine Negative (Negative); Color Urine Yellow (Yellow); Glucose Urine UA 3+ mg/dL (Negative); Ketones Urine 1+ mg/dL (Negative); Leukocyte Esterase Ur Negative LEU/UL (Negative); Need Manual Microscopic Reviewed; Nitrate Urine Negative (Negative); Non Pathogenic Casts 0-2; Protein Urine 1+ mg/dL (Negative); RBC Urine 0-2 /hpf (0-2); Specific Grav Ur 1.034 (1.001-1.035); Squamous Epithelial Cell Urine None Seen /hpf (Few); Urobilinogen Urine 0.2 mg/dL (<2.0); WBC Urine 0-5 /hpf (0-3); pH Urine 5.5 (5.0-9.0)
[2024-06-21 18:02] LABS: Glucose Point of Care 338 mg/dl (65-105)
--- NOTE | 2024-06-21 18:16 | ED_ITS ---
HPI - Extremity Injury (Lower) General Chief Complaint: Extremity Injury, Lower Stated Complaint: I'm having an onset of gout left ankle/foot pain Time Seen by Provider: 06/21/24 14:49 History of Present Illness HPI Narrative: This is an 84-year-old female, with history of gout and diabetes, who presents emergency department complaining of left ankle and foot pain concerning for gout flare. The patient states her pain is been going on for the past several days. She rates her pain 7/10. She denies associated fevers or chills. She denies any known trauma to the foot. The patient's daughter who was also bedside voices concerns the patient has had multiple falls recently has not managed her blood glucose well. On further questioning. The patient admits this is true, however she is primarily concerned about her foot pain. Related Data Home Medications ?Medication ?Instructions ?Recorded ?Confirmed ?Last Taken ?Type clonidine HCl 0.2 mg tablet mg 05/04/23 10/15/23 Unknown History furosemide 40 mg tablet mg 05/04/23 10/15/23 Unknown History gabapentin 300 mg capsule mg 05/04/23 10/15/23 Unknown History insulin regular hum U-500 conc 500 unit subcut 05/04/23 10/15/23 Unknown History unit/mL(3 mL) subcut pen (Humulin R U-500 (Conc) Insulin Kwikpen) labetalol 200 mg tablet mg 05/04/23 10/15/23 Unknown History omeprazole 20 mg capsule,delayed mg 05/04/23 10/15/23 Unknown History release ropinirole 0.25 mg tablet mg 05/04/23 10/15/23 Unknown History semaglutide 1 mg/dose (4 mg/3 mL) mg subcut 05/04/23 10/15/23 Unknown History subcutaneous pen injector (Ozempic) sertraline 50 mg tablet mg 05/04/23 10/15/23 Unknown History simvastatin 10 mg tablet mg 05/04/23 10/15/23 Unknown History spironolactone 25 mg tablet mg 05/04/23 10/15/23 Unknown History Allergies Allergy/AdvReac Type Severity Reaction Status Date / Time codeine Allergy Mild Unknown Verified 10/14/23 14:50 Penicillins Allergy Mild Unknown Verified 10/14/23 14:50 morphine Allergy Hives Verified 10/14/23 14:50 Review of Systems 2 Review of Systems: All systems reviewed & are unremarkable except as noted in HPI and below PMFSH Past Medical History Medical History (Updated 06/21/24 @ 23:13 by Tang Price MD) Gout Spinal cord stimulator status High cholesterol Diabetes Social History Social History Smoking status: Never smoker Alcohol intake: unknown Substance use: unknown Do You Feel Safe in your Home?: Yes Lack of Transportation: No Lack of Food: Never True Concerned About Future Housing: No Difficulty Paying Gas/Electric Bills: No Difficulty Paying for Meds: No Currently Unemployed: No Education: Grade School Difficulty w/ Childcare or Family Care: No Occupation/Education: retired Gender identity (if verbalized by the patient): Female Exam 2 Narrative: GENERAL: Well-developed, well-nourished, and in no acute distress. HEAD: Normocephalic, atraumatic. EYES: PERRLA and EOMI. ENT: Nares clear, no rhinorrhea or epistaxis. Mucous membranes dry. Oropharynx without tonsillar hypertrophy exudate or other lesions. B CHEST: Clear to auscultation. No respiratory distress. No wheezes rales or rhonchi HEART: Regular rate and rhythm. No murmur heard. Normal peripheral pulses. ABDOMEN: Soft, nontender, nondistended, normal active bowel sounds. EXTREMITIES: the left foot is erythematous and swollen, greatest at the medial aspect of the 1st toe MTP. Range of motion of all toes within normal limits. Normal range of motion Of all other extremities. No edema. SKIN: Warm, dry, no rash. NEURO: Alert and oriented x3. No focal deficit. Moving all 4 limbs spontaneously PSYCH: Normal mood and affect. Course Course Emergency Course: 18:24 - On initial discussion, the patient, at her daughter's encouraging, is agreeable to nursing placement. Her labs demonstrated hyperglycemia with glucose of 537 though chemistries were not concerning for anion gap. VBG demonstrates a pH within normal limits at 7.389. Bicarb mildly decreased at 19. Corrected sodium 135. Potassium 4.5. Urinalysis was not concerning for urinary tract infection beta hydroxybutyrate increased at 2.14. uric acid level elevated at 8.1. X-ray shows degenerative changes consistent with gout without other changes concerning for fracture or dislocation. The patient was given IV fluids and IV insulin. On re-evaluation after intervention however the patient states she does not wish to stay. She requests pain medications for her gout and states she will pursue longterm placement at home. Repeat fingerstick glucose improved to 338. Will discharge with pain medications and recommendation for primary care follow-up. I discussed the findings and recommendations with the patient and her daughter. Discussed return and emergency precautions including signs/symptoms of septic arthritis and neurovascular compromise. The patient and her daughter voiced understanding and agreement with the plan. All questions answered to their satisfaction. Vital Signs Vital signs: Vital Signs Temperature 97.5 F L 06/21/24 09:14 Pulse Rate 97 06/21/24 09:14 Respiratory Rate 16 06/21/24 09:14 Blood Pressure 146/64 H 06/21/24 09:14 Pulse Oximetry 96 06/21/24 09:14 Oxygen Delivery Room Air 06/21/24 09:14 Temperature 97.9 F 06/21/24 18:29 Pulse Rate 68 06/21/24 18:29 Respiratory Rate 16 06/21/24 18:29 Blood Pressure 132/68 06/21/24 18:29 Pulse Oximetry 98 06/21/24 18:29 Oxygen Delivery Room Air 06/21/24 09:14 MDM - Extremity Injury (Lower) MDM Narrative Medical decision making narrative: plan: Imaging, labs, pain control, fingerstick glucose, IV fluids, reassess Differential Diagnosis Differential diagnosis: Likely other ( gout, fracture, DKA, hyperglycemia, metabolic abnormality, dehydration, other) Lab Data 06/21/24 14:34 06/21/24 14:34 Labs: Lab Results 06/21/24 06/21/24 06/21/24 Range/Units 14:34 16:52 18:00 WBC 10.9 H (4.5-10.0) K/mm3 RBC 3.81 L (4.2-5.4) M/mm3 Hgb 10.2 L (12.0-15.0) g/dL Hct 30.6 L (37.0-47.0) % MCV 80.3 (80-100) fl MCH 26.8 (26-34) pg MCHC 33.3 (32-36) g/dl RDW 13.7 (11.5-14.5) % Plt Count 300 (150-375) k/mm3 MPV 10.1 (7.4-10.4) fl Immature Gran % (Auto) 1.3 H (0-0.5) % Neut % (Auto) 78.7 H (45.5-73.1) % Lymph % (Auto) 10.4 L (18.3-44.2) % [place] % (Auto) 9.3 H (2.6-8.5) % Eos % (Auto) 0.0 (0-4.4) % Baso % (Auto) 0.3 (0.2-1.2) % Lymph # (Auto) 1.14 (0.9-3.2) K/mm3 [place] # (Auto) 1.0 H (0.1-0.6) K/mm3 Eos # (Auto) 0.0 (0-0.3) K/mm3 Baso # (Auto) 0.0 (0.0-0.1) K/mm3 Abs Immat Gran (auto) 0.14 H (0.00-0.031) K/mm3 Absolute Neuts (auto) 8.6 H (1.3-6.7) K/mm3 Absolute Nucleated RBC 0.000 (0.0-0.012) K/mm3 Nucleated RBC % 0.0 (0.0-0.2) % Sodium 128 L (137-145) mmol/L Potassium 4.5 (3.4-5.0) mmol/L Chloride 96 L (98-107) mmol/L Carbon Dioxide 18 L (22-30) mmol/L Anion Gap 14 H (4-12) mmol/L BUN 26 H (7-17) mg/dL Creatinine 1.13 H (0.7-1.0) mg/dL Estim Creat Clear Calc Not Reportable Estimated GFR 46 L (59 - ) Glucose 537 H* (65-110) mg/dL POC Capillary Glucose 338 H (65-105) mg/dl Uric Acid 8.1 H (2.5-7.5) mg/dL Calcium 8.5 (8.4-10.2) mg/dL Magnesium 1.8 (1.6-2.3) mg/dL Total Bilirubin 0.6 (0.2-1.3) mg/dL AST 23 (14-36) U/L ALT 20 (6-35) U/L Alkaline Phosphatase 107 (38-126) U/L Total Protein 7.0 (6.3-8.2) g/dL Albumin 3.4 L (3.5-5.1) g/dL Beta-Hydroxybutyrate/Acetoacetate 2.14 H (0.02-0.27) mmol/L Urine Color Yellow (Yellow) Urine Appearance Clear (Clear) Urine pH 5.5 (5.0-9.0) Ur Specific [place] 1.034 (1.001-1.035) Urine Protein 1+ H (Negative) mg/dL Urine Glucose (UA) 3+ H (Negative) mg/dL Urine Ketones 1+ H (Negative) mg/dL Ur Blood (Man) Negative (Negative) Urine Nitrate Negative (Negative) Urine Bilirubin Negative (Negative) Urine Urobilinogen 0.2 (<2.0) mg/dL Add Ur Microanalysis Reviewed Leukocyte Esterase Rfl Negative (Negative) EDUARDO/UL Urine RBC 0-2 (0-2) /hpf Urine WBC 0-5 (0-3) /hpf Ur Squamous Epith Cells None seen (Few) /hpf Urine Bacteria None seen /hpf Urine Casts 0-2 ABG Data ABG results: 06/21/24 15:45 VBG pH 7.389 VBG pCO2 33.7 L VBG pO2 < 27.0 L VBG HCO3 19.9 L O2 Delivery Device Not Reportable O2 Liters/Min Not Reportable FiO2 21 Discharge Plan Discharge Clinical Impression: Pain of left great toe Hyperglycemia due to type 2 diabetes mellitus Qualifiers: Diabetes mellitus detention insulin use: unspecified detention insulin use status Qualified Code(s): E11.65 - Type 2 diabetes mellitus with hyperglycemia Gout Qualifiers: Gout site: toe Gout etiology: unspecified cause Chronicity: acute Laterality: l eft Qualified Code(s): M10.9 - Gout, unspecified Patient Disposition: Home, Self-Care Condition: Stable Instructions: Antibiotic Form, Gout (ED) Additional Instructions: You were seen in the emergency department. your labs showed elevated glucose and some changes consistent with dehydration but was not concerning for diabetic ketoacidosis. Your labs also reflect changes consistent with gout. Your given IV fluids, IV insulin. I recommend regular use of your insulin and follow-up with your primary care doctor. If you develop[ ], or if you have other emergent concerns for life, limb, or eyesight, return to the emergency department. Patient Language: Mongolian Prescriptions: New colchicine 0.6 mg tablet 0.6 mg PO DAILY Qty: 6 0RF Rx Instructions: Take one tab by mouth. Take one additional one tab if pain persists. Do not take more than 2 tabs in 24 hours. No Action furosemide 40 mg tablet labetalol 200 mg tablet simvastatin 10 mg tablet spironolactone 25 mg tablet clonidine HCl 0.2 mg tablet ropinirole 0.25 mg tablet gabapentin 300 mg capsule omeprazole 20 mg capsule,delayed release(DR/EC) sertraline 50 mg tablet Humulin R U-500 (Conc) Kwikpen 500 unit/mL (3 mL) insulin pen SUBCUT Ozempic 1 mg/dose (4 mg/3 mL) pen injector SUBCUT fluconazole 150 mg tablet 150 mg PO DAILY Qty: 1 0RF Follow-up/Referrals: Toby,Lisset Segundo, TRANSMISSION SUPERVISOR [Primary Care Provider] - 1 Week Time of Disposition: 18:24
[2024-06-21 18:29] VITALS: BP 132/68; PULSE 68; RESP 16; TEMP 36.6; O2SAT 98
== END 2024-06-21 18:40 | disposition home or self-care (01) ==
PROVIDERS: Registered Nurse; Emergency Provider Preventive Medicine Aerospace Medicine; PCP Nurse Practitioner Family
DX: E11.65 Type 2 diabetes mellitus with hyperglycemia (principal); M10.9 Gout, unspecified; E78.5 Hyperlipidemia, unspecified; Z79.4 Long term (current) use of insulin
CPT/HCPCS: 36415; 73630; 80053; 81001; 82010; 82803; 82948; 83735; 84550; 85025; 96361; 96374; 99284; A9270; J1815; J7120

== ENCOUNTER 2024-10-31 15:52 | Emergency (ER) | payer MEDICARE, BC, SELFPAY ==
[2024-10-31 16:11] VITALS: BP 113/60; PULSE 74; RESP 20; TEMP 36.1; O2SAT 100
--- NOTE | 2024-10-31 16:28 | ED.GENADULT ---
HPI - General Adult General Chief complaint: Unspecified Stated complaint: Elevated blood sugar, not feeling well Time Seen by Provider: 10/31/24 16:10 Source: patient, family and RN notes reviewed Mode of arrival: ambulatory Limitations: no limitations History of Present Illness HPI narrative: 84-year-old female presents Express Care complaining of weakness and high blood sugar for 1 week. Patient states she recently moved into an assisted living in the staff there started to manage her blood sugars. Patient states she takes Humalog and Lantus. And she has been her blood sugars have been much higher ranging from the 200-500. Patient also reports brown watery diarrhea. Patient denies any abdominal pain, vomiting, confusion. Patient is reports she is excessively thirsty and she is urinating more than normal. Patient says she has a loss of appetite. Patient denies any chest pain, shortness of breath, left arm pain, jaw pain, dizziness, lightheadedness, any syncope. Patient's blood sugar today is 380. 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 Related Data Home Medications ?Medication ?Instructions ?Recorded ?Confirmed ?Last Taken ?Type clonidine HCl 0.2 mg tablet mg 05/04/23 10/15/23 Unknown History furosemide 40 mg tablet mg 05/04/23 10/15/23 Unknown History insulin regular hum U-500 conc 500 unit subcut 05/04/23 10/15/23 Unknown History unit/mL(3 mL) subcut pen (Humulin R U-500 (Conc) Insulin Kwikpen) ropinirole 0.25 mg tablet mg 05/04/23 10/15/23 Unknown History semaglutide 1 mg/dose (4 mg/3 mL) mg subcut 05/04/23 10/15/23 Unknown History subcutaneous pen injector (Ozempic) sertraline 50 mg tablet mg 05/04/23 10/15/23 Unknown History simvastatin 10 mg tablet mg 05/04/23 10/15/23 Unknown History spironolactone 25 mg tablet mg 05/04/23 10/15/23 Unknown History carvedilol 25 mg tablet (Coreg) 25 mg PO BID 10/31/24 10/31/24 Unknown History cholecalciferol (vitamin D3) 1,250 1,250 mcg PO ONCE 10/31/24 10/31/24 Unknown History mcg (50,000 unit) capsule ferrous sulfate 325 mg (65 mg 325 mg PO DAILY 10/31/24 10/31/24 Unknown History iron) tablet hydrocodone 5 mg-acetaminophen 325 1 tablet PO Q12H 10/31/24 10/31/24 Unknown History mg tablet insulin glargine 100 unit/mL (3 2 unit subcut QPM 10/31/24 10/31/24 Unknown History mL) subcutaneous pen (Lantus Solostar U-100 Insulin) melatonin 10 mg capsule 10 mg PO DAILY 10/31/24 10/31/24 Unknown History omeprazole 20 mg capsule,delayed 20 mg PO DAILY 10/31/24 10/31/24 Unknown History release terazosin 2 mg capsule 2 mg PO HS 10/31/24 10/31/24 Unknown History Allergies Allergy/AdvReac Type Severity Reaction Status Date / Time codeine Allergy Mild Unknown Verified 10/31/24 18:36 Penicillins Allergy Mild Unknown Verified 10/31/24 18:36 morphine Allergy Hives Verified 10/31/24 18:36 amlodipine (From [facility]) AdvReac Mild Unknown Verified 10/31/24 18:36 atorvastatin AdvReac Mild Unknown Verified 10/31/24 18:36 erythromycin base AdvReac Mild Unknown Verified 10/31/24 18:36 Review of Systems Review of Systems: CONSTITUTIONAL: Denies fever, chills, body aches, or sweats. EYES: Denies visual changes, redness, or discharge. ENT: Denies rhinorrhea, congestion, sore throat, or otalgia. CARDIOVASCULAR: Denies chest pain, palpitations, or edema. RESPIRATORY: Denies cough, wheezing, or dyspnea. GASTROINTESTINAL: Denies abdominal pain and vomiting. Positive for diarrhea and nausea. GENITOURINARY: Denies dysuria or hematuria. SKIN: Denies rash or itching. MUSCULOSKELETAL: Denies back pain, joint pain, or myalgia. NEUROLOGIC: Denies headache, numbness, confusion. Positive for weakness. PSYCHIATRIC: Denies anxiety or depression. All other systems reviewed are negative, except as documented in HPI. [facility] Past Medical History Medical History Gout Spinal cord stimulator status High cholesterol Diabetes Social History Social History (Reviewed 06/16/25 @ 16:31 by VESTA Tolliver Smoking status: Never smoker Alcohol intake: unknown Substance use: unknown Do You Feel Safe in your Home?: Yes Lack of Transportation: No Lack of Food: Never True Concerned About Future Housing: No Difficulty Paying Gas/Electric Bills: No Difficulty Paying for Meds: No Currently Unemployed: No Education: Grade School Difficulty w/ Childcare or Family Care: No Occupation/Education: retired Gender identity (if verbalized by the patient): Female Comments At the time of my signature, I reviewed and agree with the nursing past medical, surgical, social, and family history. There is no relevant family history pertinent to the patient complaint. Exam Narrative: GENERAL: This is a well-nourished, well-developed adult, in no apparent distress. They are nontoxic appearing. Patient is sick-appearing. HEAD: normocephalic, atraumatic. EYES: Sclera clear/white. Conjunctiva normal. Vision is grossly intact. Extraocular movements intact EARS: External ears normal,. Hearing grossly intact. NOSE: External nose normal THROAT: Dry mucous membranes, NECK: Neck supple CARDIOVASCULAR: Regular rate and rhythm without murmurs, gallops, or rubs. RESPIRATORY: Clear to auscultation. Breath sounds equal bilaterally. No wheezes, rales, or rhonchi. Respiratory rate normal, respiratory effort nonlabored, no respiratory distress GASTROINTESTINAL: Abdomen soft, non-tender, nondistended. Bowel sounds are active. No hepato-splenomegaly, or palpable masses. No guarding. SKIN: warm, Dry, intact with no suspicious lesions or rash, good texture and turgor. NEURO: awake, alert, and oriented to person, place and time. There were no obvious focal neurologic abnormalities. EXTREMITIES: No joint tenderness, effusion, or edema noted. BACK: Nontender without deformity. Course Course Emergency Course: Portions of this record may have been created with voice recognition software Level of Care: Express Care Visit Vital Signs Vital signs: Vital Signs Temperature 96.9 F L 10/31/24 16:11 Pulse Rate 74 10/31/24 16:11 Respiratory Rate 20 10/31/24 16:11 Blood Pressure 113/60 10/31/24 16:11 Pulse Oximetry 100 10/31/24 16:11 Oxygen Delivery Room Air 10/31/24 16:11 Temperature 96.9 F L 10/31/24 16:11 Pulse Rate 74 10/31/24 16:11 Respiratory Rate 20 10/31/24 16:11 Blood Pressure 113/60 10/31/24 16:11 Pulse Oximetry 100 10/31/24 16:11 Oxygen Delivery Room Air 10/31/24 16:11 Reviewed Transfer Transfered to: [facility] [place] Transportation: Other (Private vehicle via daughter, patient refused EMS) Transfer rationale: Higher level care, hyperglycemia, dehydration, weakness Accepting physician: Berta KEANE Medical Decision Making MDM Narrative Medical decision making narrative: Patient blood glucose today is 380. Patient clinically appears dehydrated and appear sick. Patient is not in any apparent distress, patient's vital signs are hemodynamically stable. Patient is alert oriented x4 and answering questions appropriately. Given patient's current condition it is recommended she seek a higher level care proceed immediately to the ER. Patient is agreeable to go to [facility] for further evaluation and management. Colored [facility] and spoke to Berta KEANE who is wear this patient and accepted the patient for transfer. Offered patient EMS to hospital patient declined stating her daughter will take her to the hospital immediately. Patient advised to remain NPO proceed immediately to the ER. Differential Diagnosis Differential Diagnosis: DKA, hyperglycemia, dehydration, [facility] Vital Signs Vital Signs: Vital Signs Temperature 96.9 F L 10/31/24 16:11 Pulse Rate 74 10/31/24 16:11 Respiratory Rate 20 10/31/24 16:11 Blood Pressure 113/60 10/31/24 16:11 Pulse Oximetry 100 10/31/24 16:11 Oxygen Delivery Room Air 10/31/24 16:11 Temperature 96.9 F L 10/31/24 16:11 Pulse Rate 74 10/31/24 16:11 Respiratory Rate 20 10/31/24 16:11 Blood Pressure 113/60 10/31/24 16:11 Pulse Oximetry 100 10/31/24 16:11 Oxygen Delivery Room Air 10/31/24 16:11 Lab Data Lab results reviewed: Yes I reviewed the patient's lab results. Critical Care Time Critical Care Time Critical Care Time: No Discharge Plan Discharge Clinical Impression: Hyperglycemia, Weakness Patient Disposition: Acute Care Hospital Condition: Stable Patient Language: [place] Islander Prescriptions: No Action furosemide 40 mg tablet simvastatin 10 mg tablet spironolactone 25 mg tablet clonidine HCl 0.2 mg tablet ropinirole 0.25 mg tablet sertraline 50 mg tablet Humulin R U-500 (Conc) Kwikpen 500 unit/mL (3 mL) insulin pen SUBCUT Ozempic 1 mg/dose (4 mg/3 mL) pen injector SUBCUT carvedilol [Coreg] 25 mg tablet 25 mg PO BID Rx Instructions: must administer with a meal/food ferrous sulfate 325 mg (65 mg iron) tablet 325 mg PO DAILY hydrocodone-acetaminophen 5-325 mg tablet 1 tablet PO Q12H melatonin 10 mg capsule 10 mg PO DAILY omeprazole 20 mg capsule,delayed release(DR/EC) 20 mg PO DAILY terazosin 2 mg capsule 2 mg PO HS cholecalciferol (vitamin D3) 1,250 mcg (50,000 unit) capsule 1,250 mcg PO ONCE insulin glargine [Lantus Solostar U-100 Insulin] 100 unit/mL (3 mL) insulin pen 2 unit subcut QPM Follow-up/Referrals: Toby,Lisset Segundo APRN [Primary Care Provider] - Time of Disposition: 16:28
--- OUTSIDE RECORDS SUMMARY | 2024-10-31 16:55 | XMS_ITS | Encounter Summary ---
Author Organization [facility] Address [facility]ly [facility], [facility] [place] [address] Care Team Providers Care Project Program Manager Name Role Phone Lisset Luis [facility] Primary Care Provider + Raymond Brunson MD Unavailable Unavail able Gabriele Doshi MD Unavailable [phone] Lynn Vanegas RN Unavailable [phone] Encounter Details Date Type Department Care Team (Latest Contact Info) Description 09/13/2024 Results Follow-Up [facility] Family & Internal Medicine [address] [address] Lisset Luis [address], [address] [place] [address] CBC W/DIFF AUTOMATED, COMPREHENSIVE METABOLIC PANEL, HEMOGLOBIN, GLYCOSYLATED, Additional followed-up results: 3 Social History Tobacco Use Types Packs/Day Years Used Date Smoking Tobacco: Never Smokeless Tobacco: Never Alcohol Use Standard Drinks/Week Comments Not Currently 0 (1 standard drink = 0.6 oz pur e alcohol) OASIS D0700: Social Isolation Answer Da te Recorded Frequency of experiencing loneliness or isolatio n Never 09/12/2024 OASIS A1250: Transportation Answer Date Recorded Lack of Transportation (Medical) No 09/12/2024 Lack of Transportation (Non-Medical) No 09/12/2024 Patient Unable or Declines to Respond No 09/12/2024 OASIS B1300: Health Literacy Answer Alex e Recorded Frequency of needing help to read materials from doctor or pharmacy Never 09/12/2024 B1300 Health Literacy Answer Date Recor ded How often do you need to hav e someone help you when you read instructions, pamphlets, or other written material from your doctor or pharmacy? Never 07/22/2024 [facility] Utilities Answer Date Recorded In the past 12 months has e [employer], gas, oil, or water Appifier threatened to shut off services in your home? No 07/28/2024 Humiliation, Afraid, Rape, and Kick questionnair e Answer Date Recorded Within the last year, have y ou been afraid of your partner or ex-partner? No 07/28/2024 Within the last year, have y ou been humiliated or emotionally abused in other ways by your partner or ex-partner? No Within the last year, have y ou been kicked, hit, slapped, or otherwise physically hurt by your partner or ex-partner? No 07/28/2024 Within the last year, have y ou been raped or forced to have any kind of sexual activity by your partner or ex-partner? No 07/28/2024 Social Connection and Isolat ion Panel [NHANES] Answer Date Recorded In a typical week, how many times do you talk on the phone with family, friends, or neighbors? More than three times a week 07/22/2024 How often do you get togethe r with friends or relatives? More than three times a week 07/22/2024 How often do you attend chur ch or sikhism services? 1 to 4 times per year 07/22/2024 Do you belong to any clubs o r organizations such as voodoo groups, unions, fraternal or athletic groups, or school groups? Yes 07/22/2024 How often do you attend meet ings of the clubs or organizations you belong to? 1 to 4 times per year 07/22/2024 Are you , , di vorced, , never , or living with a partner? 07/22/2024 AUDIT-C Answer Date Recorded Q1: How often do you have a drink containing alc ohol? Monthly or less 07/22/2024 Q2: How many drinks containi ng alcohol do you have on a typical day when you are drinking? 1 or 2 07/22/2024 Q3: How often do you have si x or more drinks on one occasion? Never 07/22/2024 Overall Financial Resource Strain (CARDIA) Answe r Date Recorded How hard is it for you to pa y for the very basics like food, housing, medical care, and heating? Not hard at all 07/28/2024 PHQ-2 Answer Date Recorded Patient Health Questionnaire-2 Score 2 07/22/2024 [facility] - Occupational Stress Questionnaire Answer Date Recorded Do you feel stress - tense, restless, nervous, or anxious, or unable to sleep at night because your mind is troubled all the time - these days? To some extent 07/22/2024 Exercise Vital Sign Answer Date Recorde d On average, how many days pe r week do you engage in moderate to strenuous exercise (like a brisk walk)? 7 days 07/22/2024 On average, how many minutes do you engage in exercise at this level? 20 min 07/22/2024 Hunger Vital Sign Answer Date Recorded Within the past 12 months, y ou worried that your food would run out before you got the money to buy more. Never true 07/29/19 25 Within the past 12 months, t he food you bought just didn't last and you didn't have money to get more. Never true 07/28/2024 PRAPARE - Transportation Answer Date Re corded In the past 12 months, has l ack of transportation kept you from medical appointments or from getting medications? No 07/16 In the past 12 months, has l ack of transportation kept you from meetings, work, or from getting things needed for daily living? No 07/28/2024 Housing Stability Vital Sign Answer Alex e [...] place to sleep or slept in a care home (including now)? No 02/02/2023 Housing Stability Vital Sign Answer Alex e Recorded In the last 12 months, was t here a time when you were not able to pay the mortgage or rent on time? No 07/28/2024 In the past 12 months, how m any times have you moved where you were living? 0 07/28/2024 At any time in the past 12 m [facility], were you homeless or living in a care home (including now)? No 07/28/2024 Comments No Sex and Gender Information Value Date Recorded Sex Assigned at Female 06/22/2024 11:23 AM TAIL EDGER Legal Sex Female 8:19 PM CDT Gender Identity Female 07/22/2024 3:29 PM TAIL EDGER Sexual Orientation Straight 07/22/2024 3: 29 PM TAIL EDGER documented as of this encounter Functional Status * Are you deaf or do you have serious difficulty hearing Answer Date of Assessment Author Status Yes 08/03/2024 3:00 PM Arianne Blum RN Active * Are you blind or do you have serious difficulty seeing, even when wearing glasses? Answer Date of Assessment Author Status No 08/03/2024 3:00 PM Arianne Blum RN Active * Do you have serious difficulty walking or climbing stairs? Answer Date of Assessment Author Status Yes 08/03/2024 3:00 PM Arianne Blum RN Active * Do you have difficulty dressing or bathing? Answer Date of Assessment Author Status No 08/03/2024 3:00 PM Arianne Blum RN Active * Because of a physical, mental, or emotional condition, do you have difficulty doing errands alone such as visiting a doctor's office or shopping? Answer Date of Assessment Author Status Yes 08/03/2024 3:00 PM Arianne Blum RN Active documented as of this encounter Mental Status * Because of a physical, mental, or emotional condition, do you have serious difficulty concentrating, remembering, or making decisions? Answer Entry Date Author Status No 08/03/2024 3:00 PM CDT Marlene, Arianne A , RN Active documented in this encounter Plan of Treatment Upcoming Encounters Date Type Department Care Team (Late st Contact Info) Description 12/12/2024 11:00 AM CDT Office Visit [facility] Family & Internal Medicine - [place] [address] [place] [phone] Christine Plasecnia, FIREWORKS MAKER [address] [facility] [address] [place] [address] documented as of this encounter Visit Diagnoses Not on filedocumented in this encounter Care Teams Project Program Manager Relationship Specialty Start Date End Date Lisset Luis, LATH TIER- [address] [facility], [address] [address] PCP - General Nurse Practitioner Family 01/27/23 11/25/24 [place] [address] [facility], [address] [address] CARDIOVASCULAR DISEASE 06/04/23 Garbiele Doshi MD [address] [facility] [address] [place] [address] Referring Physician NEPHROLOGY 06/04/23 Lynn Vanegas, RN [address] [place] [address] Communications Department Chair (Ambulatory) REGISTERED NURSE 07/15/24 09/15/24 documented as of this encounter
--- OUTSIDE RECORDS SUMMARY | 2024-10-31 16:55 | XMS_ITS | Encounter Summary ---
Author Organization [facility] Address [facility] [place] [address] Care Team Providers Care Academic Affairs Manager Name Role Phone Lisset Luis [facility] Primary Care Provider + Raymond Brunson MD Unavailable Unavail able Gabriele Doshi MD Unavailable [phone] Lnyn Vanegas RN Unavailable [phone] Encounter Details Date Type Department Care Team (Late st Contact Info) Description 01/13/2024 MyCAmanda Huff DBA SecuRecoveryt Message Enc [facility] Family & Internal Medicine [facility] [address] [place] [phone] Lisset Luis, [address], [address] [place] [address] Jardiance Social History Tobacco Use [...] Sex Assigned at Female 06/22/2024 11:23 AM PIZZA HUT ASSISTANT Legal Sex Female 8:19 PM CDT Gender Identity Female 07/22/2024 3:29 PM PIZZA HUT ASSISTANT Sexual Orientation Straight 07/22/2024 3: 29 PM PIZZA HUT ASSISTANT documented as of this encounter Functional Status [...] Yes 02/02/2023 6:35 PM CDT Anahy Vanegas, YAZAN Active * Because of a physical, mental, [...] the office and is recommended by her Application Penetration Tester. I would recommend if she plans to not take it she discuss this at her next nephrology appt. Re: possible mini strokes, if she is having altered mental status, changes in speech, unilateral extremity weakness, difficulty talking or changes in mouth/facial droop, I would recommend going to the ER right away for evaluation. * Jackie Hall RN - 01/13/2024 1:48 PM CDT ESTEPHANIAI Advise? documented in this encounter Plan of Treatment Upcoming Encounters Date Type Department Care Team (Late st Contact Info) Description 12/12/2024 11:00 AM CDT Office Visit [facility] Family & Internal Medicine [facility] [address] [place] [address] Christine Plasencia INJECTION MOLD TECHNICIAN [address] [facility] [address], [place] [address] documented as of this encounter Visit Diagnoses Not on filedocumented in this encounter Additional Health Concerns Infection Onset Date Last Indicated Resolved Time COVID-19 Rule Out 06/27/2024 06/27/2024 06/27/2024 2:39 PM PIZZA HUT ASSISTANT Respiratory Rule Out 07/14/2024 07/14/2024 025 12:08 AM PIZZA HUT ASSISTANT Respiratory Rule Out 07/26/2024 07/26/2024 025 9:16 PM CDT Tuberculosis Rule-Out 07/29/2024 07/29/20242024 6:47 AM CDT documented as of this encounter Care Teams Academic Affairs Manager Relationship Specialty Start Date End Date Lisset Luis, [facility] [address] [facility] [address] [place] [address] PCP - General Nurse Practitioner Family 01/27/23 11/25/24 [place] [address] [facility] [address] [place] [address] CARDIOVASCULAR DISEASE 06/04/23 Gabriele Doshi MD [address] [facility] [address] [place] [address] Referring Physician NEPHROLOGY 06/04/23 Lynn Vanegas RN [address] [place] [address] Graphic Editor (Ambulatory) REGISTERED NURSE 07/15/24 09/15/24 documented as of this encounter
--- OUTSIDE RECORDS SUMMARY | 2024-10-31 16:55 | XMS_ITS | Encounter Summary ---
Author Organization [facility] Address [facility] [place] [address] Care Team Providers Care Grand Jury Deputy Sheriff Name Role Phone Lisset Luis [facility] Primary Care Provider + Raymond Brunson MD Unavailable Unavail able Gabriele Doshi MD Unavailable [phone] Lynn aVnegas RN Unavailable [phone] Encounter Details Date Type Department Care Team (Late st Contact Info) Description 09/11/2024 MyCAssurex Healtht Message Enc [facility] Family & Internal Medicine [address] [address] Lisset Luis, [address], [address] [place] [address] Glucose readings Social History Tobacco Use Types Packs/Day Years [...] from your doctor or pharmacy? Never 07/22/2024 imbookin ([place]) Utilities Answer Date Recorded In the past 12 months has th e psicofxp, oil, or water [employer] threatened to shut off services in your [...] often do you attend chur ch or quaker services? 1 to 4 times per year 07/22/2024 Do you belong to any clubs o r organizations such as restoration groups, unions, fraternal or athletic groups, or [...] Recorded Patient Health Questionnaire-2 Score 2 07/22/2024 [facility] - Occupational Stress [...] in a fdc (including now)? No 02/02/2023 Housing Stability Vital Sign Answer Alex e Recorded In the last 12 months, was t here a time when you were not able to pay the mortgage or rent on time? No 07/28/2024 In the past 12 months, how m any times have you moved where you were living? 0 07/28/2024 At any time in the past 12 m [facility], were you homeless or living in a fdc (including now)? No 07/28/2024 Comments No Sex and Gender Information Value Date Recorded Sex Assigned at Female 06/22/2024 11:23 AM FITTER PLACER Legal Sex Female 8:19 PM CDT Gender Identity Female 07/22/2024 3:29 PM FITTER PLACER Sexual Orientation Straight 07/22/2024 3: 29 PM FITTER PLACER documented as of this encounter Functional Status [...] Date Author Status No 08/03/2024 3:00 PM Arianne Blum RN Active documented in this encounter Progress Notes * Lisset Luis, STEEL DETAILERDEEP - 09/12/2024 1:44 PM CDT Reviewed with patient and daughter in office. See documentation for recommendations. * Jackie Hall RN - 09/12/2024 9:10 AM CDT Please advise. documented in this encounter Plan of Treatment Upcoming Encounters Date Type Department Care Team (Late st Contact Info) Description 12/12/2024 11:00 AM CDT Office Visit [facility] Family & Internal Medicine - [place] [address] [place] [phone] [place] [address] [facility] [address] [facility] [place] [address] documented as of this encounter Visit Diagnoses Not on filedocumented in this encounter Care Teams Grand Jury Deputy Sheriff Relationship Specialty Start Date End Date Lisset Luis FNP- [address] [facility], [address] [place] [address] PCP - General Nurse Practitioner Family 01/27/23 11/25/24 [place] [address] [facility], [address] [place] [address] CARDIOVASCULAR DISEASE 06/04/23 Gabriele Doshi MD [address] [facility] [address] [place] [address] Referring Physician NEPHROLOGY 06/04/23 Lynn Vanegas RN [address] [place] [address] Spray Operator (Ambulatory) REGISTERED NURSE 07/15/24 09/15/24 documented as of this encounter
--- OUTSIDE RECORDS SUMMARY | 2024-10-31 16:55 | XMS_ITS | Clinical Summary ---
Author Organization [facility] Address [address] [place] [address] Care Team Providers Care Terminal Supervisor Name Role Phone Lisset Luis NP Primary Care Provider [phone] Shani Power MD Unavailable Gabriele Doshi MD Unavailable [phone] Allergies Active Allergy Reactions Criticality Noted Date [...] 2 diabetes mellitus without complication, unspecified whether nursing home insulin use (HCC) USE TO INJECT THREE TIMES DAILY DIRECTED 100 each 11 4 Active Active Problems Problem Noted Date Diagnosed Date Essential tremor 03/22/2024 Assessment & Plan (03/22/2024 2:11 PM RN CARE MANAGER): Patient presents with 5-years of progressive, bilateral, [...] Simvastatin 10mg. Last lipid panel: 02/27/23 LDL=67, WF=561. Renal artery stenosis 04/14/2023 CKD stage 3 due to type 2 diabetes mellitus 03/19 Chronic heart failure with preserved ejection fr action 04/14/2023 History of CVA (cerebrovascular accident) 2022 [...] Encounters Date Type Department Care Team Description 10/31/2024 Telephone [facility] Diabetes and Endocrinology [address] [place] [phone] Heaven Francois, PESTICIDE CHEMIST Med Management from Last 3 Months Surgical History Surgery Date Site/Laterality Comments APPENDECTOMY BLADDER SURGERY CHOLECYSTECTOMY HYSTERECTOMY TOE SURGERY Medical History Medical History Date Comments Type 2 diabetes mellitus (HCC) Hypertension Colon cancer (HCC) CVA (cerebral vascular accident) (HCC) Shortness [...] on file Legal Sex Female 3:27 AM RN CARE MANAGER Gender Identity Not on file Sexual Orientation Not on file Obstetrics History Last Filed Vital Signs Vital Sign Reading Time Taken Comments Blood Pressure 177/69 03/22/2024 1:00 PM RN CARE MANAGER Pulse 96 03/22/2024 1:00 PM RN CARE MANAGER Temperature 36.4 C (97.5 F) 03/22/2024 1:00 PM RN CARE MANAGER Respiratory Rate 16 01/25/2024 11:39 AM CDT Oxygen Saturation 97% 12/01/2023 2:39 PM CDT Inhaled Oxygen Concentration - - Weight 76.2 kg (168 lb) 03/22/2024 1:00 PM RN CARE MANAGER Height 162.6 cm (5' 4.02) 01/25/2024 11:39 AM C DT Body Mass [...] Procedure Name Priority Date/Time Associated Diagnosis Comments DIABETES EYE EXAM Routine 03/14/2024 7:33 AM [...] 01/25/2024 11:4 5 AM CDT Heaven Francois PESTICIDE CHEMIST POINT OF CARE TEST ORDERA BLES Final Result * Albumin Creatinine Ratio, Urine (03/11/2023 12:31 PM CDT) SCRIBED Creatinine, Urine 54 20 - 275 [facility] SCRIBED Microalbumin 0.9 NA - NA [facility] SCRIBED Microalb/Creat Ratio 17 <30 - NA [facility] Urine 03/11/2023 12:3 1 PM CDT Historical Provider MD LAB URINE ORDERABLES Edit ed Result - Final [facility] * (ABNORMAL) Lipid panel (02/27/2023 8:44 AM CDT) SCRIBED Cholesterol, Total 153 <200 - NA [facility] SCRIB[facility] HDL 46 >=50 - NA [facility] SCRIBED LDL 67 <100 - NA [facility] SCRIBED Triglycerides 332 <150 - NA [facility] Blood 02/27/2023 8:44 AM CDT Historical Provider MD LAB BLOOD ORDERABLES Edit ed Result - [...] 35 Units/L [facility] SCRIBED eGFR in NonAfrican Guinean 41 >=60 - NA [facility] Blood 02/27/2023 8:44 AM CDT us Historical Provider LAB BLOOD ORDERABLES Edit ed Result - Final [facility] from Last 3 Months or Most Recently Relevant to Health Maintenance Insurance MEDICARE [place] [facility] MEDICARE BLUE ACCESS OOS Care Teams Terminal Supervisor Relationship Specialty Start Date End Date Lisset Luis NP PCP - General Family Medicine 04/14/23 [place] [address] [address] [place] [address] Consulting Physician Endocrinology Diabetes & Metabolism 08/12/23 [place] [address] [address] [place] [address] Referring Physician Nephrology 01/25/24
--- OUTSIDE RECORDS SUMMARY | 2024-10-31 16:55 | XMS_ITS | Patient Health Record ---
Author Organization [facility] Address [address] [address] Care Team Providers Care Vice President Quality Name Role Phone Chinmay Martinez M.D. Primary Care Provider Rodrigo Garibay, Minerva Unavailable [phone] Reason For Referral No Information Medications Medication SIG (Take, Route, Frequency, Duration) Notes Start Date End Date Status Lyrica 75 MG take 1 capsule by or al route once a day (at bedtime) Oral 1 Active Carvedilol 25 MG take 1 tablet (25 mg ) by oral route 2 times per day with food Oral 2 Active tiZANidine HCl 4 MG TAKE 1 TABLET BY TWICE A DAY NEEDED for 90 Active Lisinopril 40 MG take 1 tablet (40 mg ) by oral route once daily Oral 1 Active Lantus 100 unit/mL inject by subcutaneo us route as per insulin protocol subcutaneous 0 Active NovoLOG 100 unit/mL inject by subcutaneo us route as per insulin sliding scale protocol subcutaneous 0 Active Lasix 40 MG take 1 tablet (40 mg ) by oral route once daily Oral 1 Active Sertraline HCl 50 MG take 1 tablet (50 m g) by oral route once daily Oral 1 Active HYDROcodone-Acetaminophen 10-325 MG take 1 tablet by oral route every 6 hours as needed for pain Oral 4 Active Potassium Chloride ER 10 MEQ take 2 capsules (20 meq) by oral route once daily with food Oral 1 Active Aspirin 325 MG take 1 tablet (325 m g) by oral route once daily Oral 1 Active Nitrostat 0.[address] 1 tablet (0.4 mg) by buccal route at the first sign of an attack; no more than 3 tabs are recommended within a 15 minute period. Sublingual 0 Active Simvastatin 10 MG take 1 tablet (10 mg ) by oral route once daily in the evening Oral 1 Active Omeprazole 20 MG take 1 capsule (20 m g) by oral route once daily before a meal Oral 1 Active Problems Problem Type SNOMED Code ICD Code Onset Dates Problem Status W/U Status Risk Notes Problem Thoracic and lumbosacral neuritis (787132670) Lumbar/thoracic radiculitis (724.4) 09/29/19 14 Active confirmed [facility] 4182- Problem Degeneration of lumbar intervertebral disc (92867199) Degeneration disc disease, lumbosacral intervertebral (722.52) 09/29/19 14 Active confirmed [facility] 4182- Problem Lumbar spondylosis (195446195) Lumbar spondylosis (M47.816) 09/29/19 14 Active confirmed [facility] 4182- Plan Of Treatment No Information Insurance Providers Payer Name Payer Address Payer Phone Subscriber Number Group Number Insured Name Patient Relationship to Insured Coverage Start Date Coverage End Date [employer] [place] [address] [place] [address] [id number] Ceci Villarreal Self - patient is the insured Medical (General) History Surgical History Surgery Date(Month/Year) Hysterectomy; 09/28/2013 Carpal tunnel release; 09/28/2013 Cholecystecomy; 09/28/2013 Appendectomy; 09/28/2013 spinal cord stimulator implant; 09/30/19 15 Tonsillectomy; 09/28/2013
--- OUTSIDE RECORDS SUMMARY | 2024-10-31 16:55 | XMS_ITS | Encounter Summary ---
Author Organization [facility] Address [facility] [place] [address] Care Team Providers Care Twist Packer Name Role Phone Lisset Luis [facility] Primary Care Provider + Raymond Brunson MD Unavailable Unavail able Gabriele Doshi MD Unavailable [phone] Lynn Vanegas RN Unavailable [phone] Encounter Details Date Type Department Care Team (Late st Contact Info) Description 01/13/2024 [employer] Message Enc [facility] Medical Group Family & Internal Medicine [address] [address] [facility] Provider [place] Social History Tobacco Use [...] place to sleep or slept in a usp (including now)? No 02/02/2023 Comments No Sex and Gender Information Value Date Recorded Sex Assigned at Female 06/22/2024 11:23 AM SPOUT POSITIONER Legal Sex Female 8:19 PM CDT Gender Identity Female 07/22/2024 3:29 PM SPOUT POSITIONER Sexual Orientation Straight 07/22/2024 3: 29 PM SPOUT POSITIONER documented as of this encounter Functional Status * Are you deaf or do you have serious difficulty hearing Answer Date of Assessment Author Status Yes 02/02/2023 6:35 PM CDT Biebel, Anahy M, R N Active * Are you blind [...] Author Status Yes 02/02/2023 6:35 PM CDT nAahy Vanegas R N Active * Because of [...] Description 12/12/2024 11:00 AM CDT Office Visit [facility] Medical Group Family & Internal Medicine [facility] [id number] [place] [address] [place] [address] [facility] [address] [place] [address] documented as of this encounter Visit Diagnoses Not on filedocumented in this encounter Additional Health Concerns Infection Onset Date Last Indicated Resolved Time COVID-19 Rule Out 06/27/2024 06/27/2024 06/27/2024 2:39 PM SPOUT POSITIONER Respiratory Rule Out 07/14/2024 07/14/2024 025 12:08 AM SPOUT POSITIONER Respiratory Rule Out 07/26/2024 07/26/2024 025 9:16 PM CDT Tuberculosis Rule-Out 07/29/2024 07/29/20242024 6:47 AM CDT documented as of this encounter Care Teams Twist Packer Relationship Specialty Start Date End Date Lisset Luis, [facility]- [address], [address] [place] [address] PCP - General Nurse Practitioner Family 01/27/23 11/25/24 [place] [address], [address] [place] [address] CARDIOVASCULAR DISEASE 06/04/23 Gabriele Dosih MD [address] [facility] [address] [place] [address] Referring Physician NEPHROLOGY 06/04/23 Lynn Vanegas, RN [address] [place] [address] Corporate Relations Director (Ambulatory) REGISTERED NURSE 07/15/24 09/15/24 documented as of this encounter
--- OUTSIDE RECORDS SUMMARY | 2024-10-31 16:55 | XMS_ITS | Referral Summary ---
Author Organization [facility] Address [address] [place] [address] Care Team Providers Care Machine Umbrella Tipper Name Role Phone Lisset Luis FILM PROCESSING UTILITY WORKER Primary Care Provider [phone] Shani Power MD Unavailable Gabriele Doshi MD Unavailable [phone] Encounters Date Type Department Care Team Description 10/31/2024 Telephone [facility] Medical Group Diabetes and Endocrinology [address] [place] [phone] Heaven Francois NP Med Management from Last 3 Months Allergies Active Allergy [...] 2 diabetes mellitus without complication, unspecified whether extermination supervisor insulin use (HCC) USE TO INJECT THREE TIMES DAILY DIRECTED 100 each 11 4 Active Active Problems Problem Noted Date Diagnosed Date Essential tremor 03/22/2024 Assessment & Plan (03/22/2024 2:11 PM SALES LEAD GENERATOR): Patient presents with 5-years of progressive, bilateral, [...] Simvastatin 10mg. Last lipid panel: 02/27/23 LDL=67, DY=166. Renal artery stenosis 04/14/2023 CKD stage 3 [...] on file Legal Sex Female 3:27 AM SALES LEAD GENERATOR Gender Identity Not on file Sexual Orientation Not on file Last Filed Vital Signs Vital Sign Reading Time Taken Comments Blood Pressure 177/69 03/22/2024 1:00 PM SALES LEAD GENERATOR Pulse 96 03/22/2024 1:00 PM SALES LEAD GENERATOR Temperature 36.4 C (97.5 F) 03/22/2024 1:00 PM SALES LEAD GENERATOR Respiratory Rate 16 01/25/2024 11:39 AM CDT Oxygen Saturation 97% 12/01/2023 2:39 PM CDT Inhaled Oxygen Concentration - - Weight 76.2 kg (168 lb) 03/22/2024 1:00 PM SALES LEAD GENERATOR Height 162.6 cm (5' 4.02) 01/25/2024 11:39 [...] DIABETES EYE EXAM (03/14/2024 7:33 AM CDT) us Historical Provider HEALTH MAINTENANCE Final Result * (ABNORMAL) POCT hemoglobin A1c (01/25/2024 11:45 AM CDT) Hemoglobin A1C, POC 10.7 4.0 - 5.6 % Blood 01/25/2024 11:4 5 AM CDT Heaven Francois FILM PROCESSING UTILITY WORKER POINT OF CARE TEST ORDERA BLES Final Result * Albumin Creatinine Ratio, Urine (03/11/2023 12:31 PM CDT) Pathologist [facility] SCRIBED Creatinine, Urine 54 20 - 275 [facility] SCRIBED Microalbumin 0.9 NA - NA [facility] SCRIBED Microalb/Creat Ratio 17 <30 - NA [facility] Urine 03/11/2023 12:3 1 PM CDT Historical Provider MD LAB URINE ORDERABLES Edit ed Result - Final Performing Organization Address City/[facility]/ZIP Co de Phone Number [facility] * (ABNORMAL) Lipid panel (02/27/2023 8:44 AM CDT) Pathologist [facility] SCRIBED Cholesterol, Total 153 <200 - NA [...] 35 Units/L [facility] SCRIBED eGFR in NonAfrican Australian 41 >=60 - NA [facility] Blood 02/27/2023 8:44 AM CDT Historical Provider LAB BLOOD ORDERABLES Edit ed Result - Final [facility] from Last 3 Months or Most Recently Relevant to Health Maintenance Insurance MEDICARE [place] [facility] MEDICARE [employer] OOS Care Teams Machine Umbrella Tipper Relationship Specialty Start Date End Date Lisset Luis NP PCP - General Family Medicine 04/14/23 [place] [address] [facility] [address] [place] [address] Consulting Physician Endocrinology Diabetes & Metabolism 08/12/23 [place] [address] [facility] [address], [place] [address] Referring Physician Nephrology 01/25/24
--- OUTSIDE RECORDS SUMMARY | 2024-10-31 16:55 | XMS_ITS | Encounter Summary ---
Author Organization [facility] Address [facility] [place] [address] Care Team Providers Care Enamel Shader Name Role Phone Lisset Luis [facility] Primary Care Provider + Raymond Brunson MD Unavailable Unavail able Gabriele Doshi MD Unavailable [phone] Lynn Vanegas RN Unavailable [phone] Encounter Details Date Type Department Care Team (Late st Contact Info) Description 08/19/2024 MyCPicateerst Message Enc [facility] Medical Group Family & Internal Medicine [facility] [address] [place] [address] Lisset Luis, [address], [address] [place] [address] blood sugar and weight Social History Tobacco Use Types Packs/Day Years Used Date Smoking Tobacco: Never Smokeless Tobacco: Never Alcohol Use Standard Drinks/Week Comments Not Currently 0 (1 standard drink = 0.6 oz pur e alcohol) OASIS D0700: Social Isolation Answer Da te Recorded Frequency of experiencing loneliness or isolatio n Never 08/10/2024 OASIS A1250: Transportation Answer Date Recorded Lack of Transportation (Medical) No 08/10/2024 Lack of Transportation (Non-Medical) No 08/10/2024 Patient Unable or Declines to Respond No 08/10/2024 OASIS B1300: Health Literacy Answer Alex e Recorded Frequency of needing help to read materials from doctor or pharmacy Rarely 08/10/2024 B1300 Health Literacy Answer Date Recor ded How often do you need to hav e someone help you when you read instructions, pamphlets, or other written material from your doctor or pharmacy? Never 07/22/2024 [facility] Utilities Answer Date Recorded In the past 12 months has th e [employer]), oil, or water [address] threatened to shut off services in your [...] 07/22/2024 How often do you attend chur or religion services? 1 to 4 times per year 07/22/2024 Do you belong to any clubs o r organizations such as rastafari groups, unions, fraternal or athletic groups, or [...] Recorded Patient Health Questionnaire-2 Score 2 07/22/2024 [facility] - [...] a skilled nursing (including now)? No 02/02/2023 Housing Stability Vital Sign Answer Alex e Recorded In the last 12 months, was t here a time when you were not able to pay the mortgage or rent on time? No 07/28/2024 In the past 12 months, how m any times have you moved where you were living? 0 07/28/2024 At any time in the past 12 m [facility], were you homeless or living in a skilled nursing (including now)? No 07/28/2024 Comments No Sex and Gender Information Value Date Recorded Sex Assigned at Female 06/22/2024 11:23 AM TRIMMING ASSEMBLER Legal Sex Female 8:19 PM CDT Gender Identity Female 07/22/2024 3:29 PM TRIMMING ASSEMBLER Sexual Orientation Straight 07/22/2024 3: 29 PM TRIMMING ASSEMBLER documented as of this encounter Functional Status [...] in this encounter Progress Notes * Lisset LuisJENI - 08/19/2024 1:31 PM CDT Increase lantus 45 units daily (in the morning or night whenever she is taking it). If morning blood sugar is <70, she should decrease Lantus by 2 units. For all meals, take 10 units humalog plus sliding scale (I.e. if scale recommends 6 units for bloodsugar, she should take 16 units with the meal). If blood sugar is less than 140, she will only take 10 units with her meal. If blood sugar is less than 70, hold insulin, drink 4 oz of juice, repeat blood sugar in 15 min. Ifshe skips a meal, hold insulin. Send blood sugar readings with insulin doses given in 1 week. * Fina Cormier MA - 08/19/2024 11:29 AM CDT Please advise BS readings documented in this encounter Plan of Treatment Upcoming Encounters Date Type Department Care Team (Late st Contact Info) Description 12/12/2024 11:00 AM CDT Office Visit [facility] Medical Group Family & Internal Medicine [address] [address] [place] [address] [place] [address]. [place] [address] documented as of this encounter Visit Diagnoses Not on filedocumented in this encounter Care Teams Enamel Shader Relationship Specialty Start Date End Date Lisset Luis FNP- [address], [place] [address] PCP - General Nurse Practitioner Family 01/27/23 11/25/24 [place] [address], [address] [place] [address] CARDIOVASCULAR DISEASE 06/04/23 Gabriele Doshi MD [address] [place] [address] Referring Physician NEPHROLOGY 06/04/23 Lynn Vanegas RN [address] [place] [address] Pilot Plant Supervisor (Ambulatory) REGISTERED NURSE 07/15/24 09/15/24 documented as of this encounter
--- OUTSIDE RECORDS SUMMARY | 2024-10-31 16:55 | XMS_ITS | Encounter Summary ---
Author Organization [facility] Address [facility] [place] [address] Care Team Providers Care Aniline Press Worker Name Role Phone Lisset Luis [facility] Primary Care Provider + Raymond Brunson MD Unavailable Unavail able Gabriele Doshi MD Unavailable [phone] Lynn Vanegas RN Unavailable [phone] Encounter Details Date Type Department Care Team (Late st Contact Info) Description 09/05/2024 MyCIR Diagnostyxt Message Enc [facility] Medical Group Family & Internal Medicine [facility] [address] [place] [address] Lisset Luis, [address], [address] [place] [address] Blood work Social History Tobacco Use Types Packs/Day Years [...] from your doctor or pharmacy? Never 07/22/2024 [employer] Utilities Answer Date Recorded In the past 12 months has th e [employer], oil, or water [employer] threatened to shut off services in your [...] often do you attend chur ch or spiritism services? 1 to 4 times per year 07/22/2024 Do you belong to any clubs o r organizations such as yarsanism groups, unions, fraternal or athletic groups, or [...] Recorded Patient Health Questionnaire-2 Score 2 07/22/2024 [facility] - Occupational [...] place to sleep or slept in a snf (including now)? No 02/02/2023 Housing Stability Vital Sign Answer Alex e Recorded In the last 12 months, was t here a time when you were not able to pay the mortgage or rent on time? No 07/28/2024 In the past 12 months, how m any times have you moved where you were living? 0 07/28/2024 At any time in the past 12 m [facility], were you homeless or living in a snf (including now)? No 07/28/2024 Comments No Sex and Gender Information Value Date Recorded Sex Assigned at Female 06/22/2024 11:23 AM FACULTY ADMINISTRATOR Legal Sex Female 8:19 PM CDT Gender Identity Female 07/22/2024 3:29 PM FACULTY ADMINISTRATOR Sexual Orientation Straight 07/22/2024 3: 29 PM FACULTY ADMINISTRATOR documented as of this encounter Functional Status * Are you deaf or do you have serious difficulty hearing Answer Date of Assessment Author Status Yes 08/03/2024 3:00 PM Arianne Blmu RN Active * Are you blind or [...] Blum RN Active documented in this encounter Plan of Treatment Upcoming Encounters Date Type Department Care Team (Late st Contact Info) Description 12/12/2024 11:00 AM CDT Office Visit [facility] Medical Group Family & Internal Medicine - [place] [address] [place] [address] Christine Plasencia, VENDOR MANAGEMENT CONSULTANT [address] [place] [address] documented as of this encounter Visit Diagnoses Not on filedocumented in this encounter Care Teams Aniline Press Worker Relationship Specialty Start Date End Date Lisset Luis, GLASS CUTTER HELPER- [address] [facility], [address] [place] [address] PCP - General Nurse Practitioner Family 01/27/23 11/25/24 [place] [address] [facility], [address] [place] [address] CARDIOVASCULAR DISEASE 06/04/23 Gabriele Doshi MD [address] [facility] [address] [place] [address] Referring Physician NEPHROLOGY 06/04/23 Lynn Vanegas, RN [address] [place] [address] Biodiesel Plant Manager (Ambulatory) REGISTERED NURSE 07/15/24 09/15/24 documented as of this encounter
--- OUTSIDE RECORDS SUMMARY | 2024-10-31 16:55 | XMS_ITS | Encounter Summary ---
Author Organization [facility] Address [facility] [place] [address] Care Team Providers Care Furniture Rental Consultant Name Role Phone Lisset Luis [facility] Primary Care Provider + Raymond Brunson MD Unavailable Unavail able Gabriele Doshi MD Unavailable [phone] Lynn Vanegas RN Unavailable [phone] Encounter Details Date Type Department Care Team (Late st Contact Info) Description 09/13/2024 Results Follow-Up [facility] Medical Group Family & Internal Medicine [address] [address] Lisset Luis, [address], [address] [place] [address] ALBUMIN/CREATININE RATIO, RANDOM URINE Social History Tobacco Use Types Packs/Day Years [...] from your doctor or pharmacy? Never 07/22/2024 [facility] Utilities Answer Date Recorded In the past 12 months has e [employer], oil, or water [employer] threatened to shut off services in your [...] often do you attend chur ch or episcopalian services? 1 to 4 times per year 07/22/2024 Do you belong to any clubs o r organizations such as hoahaoism groups, unions, fraternal or athletic groups, or [...] Recorded Patient Health Questionnaire-2 Score 2 07/22/2024 [facility] - Occupational [...] money to buy more. Never true 07/29/19 Within the past 12 months, t he [...] in a alf (including now)? No 02/02/2023 Housing Stability Vital Sign Answer Alex e Recorded In the last 12 months, was t here a time when you were not able to pay the mortgage or rent on time? No 07/28/2024 In the past 12 months, how m any times have you moved where you were living? 0 07/28/2024 At any time in the past 12 m [facility], were you homeless or living in a alf (including now)? No 07/28/2024 Comments No Sex and Gender Information Value Date Recorded Sex Assigned at Female 06/22/2024 11:23 AM COMMERCIAL REPORTER Legal Sex Female 8:19 PM CDT Gender Identity Female 07/22/2024 3:29 PM COMMERCIAL REPORTER Sexual Orientation Straight 07/22/2024 3: 29 PM COMMERCIAL REPORTER documented as of this encounter Functional Status [...] Description 12/12/2024 11:00 AM CDT Office Visit [facility] Medical Group Family & Internal Medicine - [place] [address] [place] [address] Christine Plasencia, VP CUSTOMER SERVICE [address] [facility] [address] [place] [address] documented as of this encounter Visit Diagnoses Not on filedocumented in this encounter Care Teams Furniture Rental Consultant Relationship Specialty Start Date End Date Lisset Luis, BLOCK HACKER- [address] [facility], [address] [place] [address] PCP - General Nurse Practitioner Family 01/27/23 11/25/24 [place] [address] [facility], [address] [place] [address] CARDIOVASCULAR DISEASE 06/04/23 Gabriele Doshi MD [address] [facility] [address] [place] [address] Referring Physician NEPHROLOGY 06/04/23 Lynn Vanegas, RN [address] [place] [address] Manager Investment (Ambulatory) REGISTERED NURSE 07/15/24 09/15/24 documented as of this encounter
--- OUTSIDE RECORDS SUMMARY | 2024-10-31 16:55 | XMS_ITS | Encounter Summary ---
Author Organization [facility] Address [address] [place] [address] Care Team Providers Care Contract Designer Name Role Phone Lisset Luis NP Primary Care Provider [phone] Shani Power MD Unavailable Gabriele Doshi MD Unavailable [phone] Reason for Visit * Reason Onset Date Comments Med Management 10/31/2024 Encounter Details Date Type Department Care Team (Late st Contact Info) Description 10/31/2024 Telephone [facility] Medical Group Diabetes and Endocrinology [address] [place] [address] Heaven Francois MEDICAL BILLING CLERK [address] [facility] [address] [place] [address] Med Management Social History Tobacco Use Types Packs/Day Years [...] on file Legal Sex Female 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 Pt sound a little confuse and tired, Pt stated she can not find the phone number of the facility and stated that the name of the facility is [facility] in [place], I was unable to find this facility to call. Pt stated she will give as a call back with the phone number. Couldn't find a current HIPAA form to contact daughter. * Telephone Encounter - Julio Wright - 10/31/2024 10:09 AM CDT Incoming Call SANDHYA: 01/25/24 DS NOV: 03/13/25 DS Caller: Patient Call Reason: The patient called the office and said that she is currently residing in an Assisted Living facility and she is concerned about her BG readings that are taken by the staff. And she is going to obtain the readings from the staff to be sent to the office. She is also requesting a return call from the office. documented in this encounter Plan of Treatment Not on file documented as of this encounter Visit Diagnoses Not on filedocumented in this encounter Care Teams Contract Designer Relationship Specialty Start Date End Date Lisset Luis NP PCP - General Family Medicine 04/14/23 [place] [address] [address] Consulting Physician Endocrinology Diabetes & Metabolism 08/12/23 [place] [address] [address] Referring Physician Nephrology 01/25/24 documented as of this encounter
--- OUTSIDE RECORDS SUMMARY | 2024-10-31 16:55 | XMS_ITS | Encounter Summary ---
Author Organization [facility] Address [facility] [place] [address] Care Team Providers Care Natural Fabricator Name Role Phone Lisset Luis [facility] Primary Care Provider + Raymond Brunson MD Unavailable Unavail able Gabriele Doshi MD Unavailable [phone] Lynn Vanegas RN Unavailable [phone] Encounter Details Date Type Department Care Team (Late st Contact Info) Description 08/22/2024 MyCPipeline Microt Message Enc [facility] Medical Group Family & Internal Medicine [address] [address] Lisset Luis, [address], [address] [place] [address] Hospital bed? Social History Tobacco Use Types Packs/Day Years [...] from your doctor or pharmacy? Never 07/22/2024 [facility] Utilities Answer Date Recorded In the past 12 months has th e [employer], oil, or water [employer] threatened to shut off services in your [...] often do you attend chur ch or faith services? 1 to 4 times per year 07/22/2024 Do you belong to any clubs o r organizations such as oriental orthodox groups, unions, fraternal or athletic groups, or [...] Recorded Patient Health Questionnaire-2 Score 2 07/22/2024 [facility] - Occupational [...] place to sleep or slept in a residential (including now)? No 02/02/2023 Housing Stability Vital Sign Answer Alex e Recorded In the last 12 months, was t here a time when you were not able to pay the mortgage or rent on time? No 07/28/2024 In the past 12 months, how m any times have you moved where you were living? 0 07/28/2024 At any time in the past 12 m [facility], were you homeless or living in a residential (including now)? No 07/28/2024 Comments No Sex and Gender Information Value Date Recorded Sex Assigned at Female 06/22/2024 11:23 AM SEISMOGRAPH OBSERVER Legal Sex Female 8:19 PM CDT Gender Identity Female 07/22/2024 3:29 PM SEISMOGRAPH OBSERVER Sexual Orientation Straight 07/22/2024 3: 29 PM SEISMOGRAPH OBSERVER documented as of this encounter Functional Status [...] Description 12/12/2024 11:00 AM CDT Office Visit [facility] Medical Group Family & Internal Medicine - [place] [address] [place] [address] Christine Plasencia, AS400 ADMINISTRATOR [address] [place] [address] documented as of this encounter Visit Diagnoses Not on filedocumented in this encounter Care Teams Natural Fabricator Relationship Specialty Start Date End Date Lisset Luis, BEEF GRINDER- [address] [facility], [address] [place] [address] PCP - General Nurse Practitioner Family 01/27/23 11/25/24 [place] [address] [facility], [address] [place] [address] CARDIOVASCULAR DISEASE 06/04/23 Gabriele Doshi MD [address] [facility] [address] [place] [address] Referring Physician NEPHROLOGY 06/04/23 Lynn Vanegas, RN [address] [place] [address] Shell Trim Operator (Ambulatory) REGISTERED NURSE 07/15/24 09/15/24 documented as of this encounter
--- OUTSIDE RECORDS SUMMARY | 2024-10-31 16:55 | XMS_ITS | Encounter Summary ---
Author Organization [facility] Address [facility] [place] [address] Care Team Providers Care Cmm Inspector Name Role Phone Lisset Luis [facility] Primary Care Provider + Raymond Brunson MD Unavailable Unavail able Gabriele Doshi MD Unavailable Lynn Vanegas RN Unavailable [phone] Encounter Details Date Type Department Care Team (Late st Contact Info) Description 01/13/2024 [email or web address] Message Enc [facility] [place] [address] [id number] Shannan Gordon MD Three [facility] [address] [place], [place] [id number] Medical card Social History Tobacco Use Types [...] place to sleep or slept in a long-term (including now)? No 02/02/2023 Comments No Sex and Gender Information Value Date Recorded Sex Assigned at Female 06/22/2024 11:23 AM DEMOLITION WORKER Legal Sex Female 8:19 PM CDT Gender Identity Female 07/22/2024 3:29 PM DEMOLITION WORKER Sexual Orientation Straight 07/22/2024 3: 29 PM DEMOLITION WORKER documented as of this encounter Functional Status [...] Description 12/12/2024 11:00 AM CDT Office Visit [facility] [id number] [place] [phone] Christine Pl[place]encia [place] [id number] [place] [address] [address] [facility] [place] [address] documented as of this encounter Visit Diagnoses Not on filedocumented in this encounter Additional Health Concerns Infection Onset Date Last Indicated Resolved Time COVID-19 Rule Out 06/27/2024 06/27/2024 06/27/2024 2:39 PM DEMOLITION WORKER Respiratory Rule Out 07/14/2024 07/14/2024 025 12:08 AM DEMOLITION WORKER Respiratory Rule Out 07/26/2024 07/26/2024 025 9:16 PM CDT Tuberculosis Rule-Out 07/29/2024 07/29/20242024 6:47 AM CDT documented as of this encounter Care Teams Cmm Inspector Relationship Specialty Start Date End Date TobyLisset, [facility]- [address], [address] [place] [address] PCP - General Nurse Practitioner Family 01/27/23 11/25/24 [place] [address], [address] [place] [address] CARDIOVASCULAR DISEASE 06/04/23 Gabriele Doshi MD [address] [place] [address] Referring Physician NEPHROLOGY 06/04/23 Lynn Vanegas, RN [address] [place] [address] Junior Sales Assistant (Ambulatory) REGISTERED NURSE 07/15/24 09/15/24 documented as of this encounter
--- OUTSIDE RECORDS SUMMARY | 2024-10-31 16:56 | XMS_ITS | Clinical Summary ---
Author Organization [facility] Address [facility] [place] [address] Care Team Providers Care General Road Supervisor Name Role Phone Lisset Luis [facility] Primary Care Provider + Raymond Brunson MD Unavailable Unavail able Gabriele Doshi MD Unavailable [phone] Allergies Active Allergy Reactions Criticality Noted Date Comments Amlodipine Rash Medium 06/01/2015 Other reaction(s): LE edema Amoxicillin Hives Medium 09/11/2013 Tolerates keflex, ceftriaxone and meropenem July 2024 Atorvastatin Rash Medium 06/01/2015 Other reaction(s): muscle [...] edema Rosuvastatin Leg Pain,Myalgias Medium 03/26/2023 Medications diphenhydrAMIN E (BENADRYL) 25 MG capsuleIndicat ions:Sleep disorders Take 2 capsules (50 mg total) by mouth every evening. Indications: Sleep disorders Active OZEMPIC 2 mg/dose injection (PEN)Indicatio ns:Diabetes Mellitus Inject 2 mg into the skin once a week. Indications: Diabetes Sundays Active cloNIDine (CATAPRES) 0.2 MG tabletIndicati ons:Hypertensi on Take 1 tablet (0.2 mg total) by mouth 2 (two) times daily. 180 tablet 1 024 Active Continuous Glucose Sensor (FREESTYLE ADELFO 2 SENSOR) MiscIndication s:Type 2 diabetes mellitus with diabetic polyneuropathy , with long-term current use of insulin ([facility]) 1 Device by Does not apply route every 14 (fourteen) days. 2 each 025 Active spironolactone (ALDACTONE) 25 MG tabletIndicati ons:Fluid Retention Take 1 tablet (25 mg total) by mouth daily. 30 tablet 2 025 Active ferrous sulfate, 65 mg elemental, 325 (65 FE) MG tabletIndicati ons:Mineral Deficiency Take 1 tablet (325 mg total) by mouth daily with breakfast. 30 tablet 2 025 Active simvastatin (ZOCOR) 20 MG tabletIndicati ons:Hyperchlor emia Take 1 tablet (20 mg total) by mouth daily. 90 tablet 1 025 Active sertraline (ZOLOFT) 50 MG tabletIndicati ons:Depression Take 2 tablets (100 mg total) by mouth every evening. 180 tablet 025 Active omeprazole (PRILOSEC) 20 MG capsuleIndicat ions:Stomach Discomfort Take 1 capsule (20 mg total) by mouth nightly. Give nightly while on Itraconazole 90 capsule 1 025 Active carvedilol (COREG) 25 MG tabletIndicati ons:Hypertensi on TAKE 2 TABLETS(50 MG) BY MOUTH TWICE DAILY 360 tablet 025 Active HOSPITAL BED, DME,Indication s:Congestive Heart Failure,Spinal Stenosis 1 Device by Does not apply route daily. Indications: Congestive Heart Failure, Narrowing of the Spinal Canal 1 Device 025 Active ONETOUCH VERIO test strip 025 Active terazosin (HYTRIN) 2 MG capsuleIndicat ions:Congestiv e Heart Failure Take 1 capsule (2 mg total) by mouth nightly at bedtime. Indications: Congestive Heart Failure 90 capsule 025 Active vitamin D2, ergocalciferol , (DRISDOL) 1.25 mg capsuleIndicat ions:Vitamin D Deficiency Take 1 capsule (1.25 mg total) by mouth every 7 days. Indications: Vitamin D Deficiency 12 capsule 1 025 Active HYDROcodone-ac etaminophen (NORCO) 5-325 MG tabletIndicati ons:Chronic Pain Take 1 tablet by mouth every 12 (twelve) hours as needed for Pain. Indications: Chronic Pain 60 tablet 025 Active insulin glargine (LANTUS SOLOSTAR) 100 UNIT/ML injection (PEN)Indicatio ns:Diabetes mellitus ([facility]) Inject 45 Units into the skin daily. 15 mL 1 025 Active rOPINIRole (REQUIP) 0.25 MG tabletIndicati ons:Restless legs Take 1 tablet (0.25 mg total) by mouth nightly at bedtime. 90 tablet 025 Active insulin lispro, 1 Unit Dial, (HUMALOG KWIKPEN) 100 UNIT/ML injection (PEN)Indicatio ns:Type 2 diabetes mellitus with diabetic polyneuropathy , with long-term current use of insulin ([facility]) Inject 12 units subcutaneously three times daily with meals. 15 mL 3 025 Active melatonin 10 MG tabletIndicati ons:Sleep Disorder Take 1 tablet (10 mg total) by mouth nightly as needed for Sleep. Indications: Sleep Disorder 90 tablet 025 Active omeprazole (PRILOSEC) 20 MG capsuleIndicat ions:Gastroeso phageal reflux disease, unspecified whether esophagitis present Take 1 capsule (20 mg total) by mouth daily. 30 capsule 025 Active furosemide (LASIX) 40 MG tabletIndicati ons:Fluid Retention Take 1 tablet (40 mg total) by mouth 2 (two) times daily. Indications: Fluid Retention In the morning and at noon 180 tablet 025 Active melatonin 10 MG tabletIndicati ons:Sleep Disorder Take 3 mg by mouth nightly as needed for Sleep. Indications: Sleep Disorder 2024 Discontinued(R eorder) rOPINIRole (REQUIP) 0.25 MG tabletIndicati ons:Restless Leg Syndrome [The details of the medication are not available because there are pending changes by a home health clinician.] 90 tablet 1 024 2024 Discontinued(R eorder) furosemide (LASIX) 40 MG tabletIndicati ons:Fluid Retention TAKE 1 TABLET(40 MG) BY MOUTH TWICE DAILY 180 tablet 025 2024 Discontinued(R eorder) HYDROcodone-ac etaminophen (NORCO) 5-325 MG tabletIndicati ons:Chronic Pain Take 1 tablet by mouth every 12 (twelve) hours as needed for Pain. Indications: Chronic Pain 60 tablet 025 2024 Discontinued(R eorder) insulin lispro, 1 Unit Dial, (HUMALOG KWIKPEN) 100 UNIT/ML injection (PEN)Indicatio ns:Diabetes Mellitus Indications: Diabetes Start humalog 12 units with each meal. 15 mL 1 025 2024 Discontinued insulin glargine (LANTUS) 100 UNIT/ML injection (PEN)Indicatio ns:Diabetes Mellitus Inject 48 Units into the skin every morning. Indications: Diabetes 15 mL 1 025 2024 Discontinued LANTUS SOLOSTAR 100 UNIT/ML injection (PEN)Indicatio ns:Diabetes mellitus ([facility]CC) INJECT 40 UNITS INTO THE SKIN EVERY MORNING 15 mL 1 025 2024 Discontinued(R eorder) insulin glargine (LANTUS SOLOSTAR) 100 UNIT/ML injection (PEN)Indicatio ns:Diabetes mellitus ([facility] HHS/HCC) Inject 45 Units into the skin daily. 15 mL 1 025 2024 Discontinued(R eorder) melatonin 10 MG tabletIndicati ons:Sleep Disorder Take 2 tablets (20 mg total) by mouth nightly as needed for Sleep. 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 -remains on lasix gtt, may stop today, Cr trending up - ECHO with normal EF, severe diastolic dysfunction. -appreciate cardiology recs Cerebrovascular accident (CV A) due to embolism of left anterior cerebral artery ([facility]) 05/05/2018 Coronary atherosclerosis of [place] coronary vess el 02/17/2014 Essential hypertension 02/17/2014 Overview (02/15/2023): Last Assessment & Plan: Continue home medications with hold parameters Hyperlipidemia associated wi th type 2 diabetes mellitus ([facility]) 02/17/2014 Overview (02/15/2023): Last Assessment & Plan: LDL is 26, HDL is 47 Continue current statin Moderate episode of recurrent major depressive d isorder 02/17/2014 Overview (02/15/2023): Last Assessment & Plan: Continue home medications Type 2 diabetes mellitus wit h diabetic polyneuropathy, with long-term current use of insulin ([facility]) 02/17/2014 Overview (02/15/2023): Last Assessment & Plan: Continue basal Lantus at slightly lower dose. 50 units instead of her normal 60. -conitnue Humalog 8 units 3 times daily, which is lower than her typical. - Corrective dose level 3 Resolved Problems Problem Noted Date Diagnosed Date Resolved Date Care Management 08/19/2024 09/16/2024 Cellulitis 02/02/2023 02/05/2023 Encounters Date Type Department Care Team Description 10/24/2024 MyChart Message Enc [facility] Internal [address] [phone] Lisset Luis FNP-JEFFRY Glucose 10/20/2024 Scan [facility] INFO SRVCS Scanned, Doc Med Group 10/20/2024 Telephone [facility] [address] [phone] Lisset Luis HOOKMAN-BC Record Request 10/19/2024 Scan [facility] HEALTH INFO SRVCS Scanned, Doc Med Group 10/19/2024 Orders Only [facility] [address] [phone] Lisset Luis FNP-BC 10/14/2024 MyChart Message Enc [facility] Family Internal [address] [phone] Lisset Luis HOOKMAN-BC My mom s meds 10/13/2024 Scan [facility] HEALTH INFO SRVCS Scanned, Doc Med Group 10/11/2024 Orders Only [facility] [address] [phone] Lisset Luis, HOOKMAN-BC 10/11/2024 MyChart Message Enc [facility] [address] [phone] Lisset Luis, HOOKMAN-BC Glucose report 09/23/2024 Scan [facility] HEALTH INFO SRVCS Scanned, Doc Med Group 09/19/2024 MyChart Message Enc [facility] [address] [phone] Lisset Luis, HOOKMAN-BC Glucose results 09/16/2024 Patient Outreach [facility] Internal [address] [phone] Lynn Vanegas, RN Care Management (CCM call to patient's daughter) 09/13/2024 Results Follow-Up [facility] Internal [address] [phone] Lisset Luis, HOOKMAN-BC ALBUMIN/CREATININE RATIO, RANDOM URINE 09/13/2024 Results Follow-Up [facility] Internal [address] [phone] Lisset Luis, HOOKMAN-BC CBC W/DIFF AUTOMATED, COMPREHENSIVE METABOLIC PANEL, HEMOGLOBIN, GLYCOSYLATED, Additional followed-up results: 3 09/12/2024 4:00 PM CDT Home Care Visit [address] [place], [place] [phone] Jaki Causey, PT PT OASIS DISCHARGE 09/12/2024 10:40 AM CDT Office Visit [facility] [address] [phone] Lisset Luis, HOOKMAN-BC Follow Up (6 mo f/u ) 09/12/2024 Travel 09/11/2024 MyChart Message Enc [facility] [place] [phone] [place] [phone] Lisset Luis, HOOKMAN-BC Glucose readings 09/07/2024 11:45 AM CDT Home Care Visit [address] [address] Jodie Howard, OT OT DISCIPLINE DISCHARGE 09/06/2024 12:45 PM CDT Home Care Visit [address] [address] Jayden Knox, PROJECT MANAGER PROCESS DEVELOPMENT PROJECT MANAGER PROCESS DEVELOPMENT HOME VISIT 09/06/2024 Patient Outreach [facility] Internal [address] [phone] Lynn Vanegas, RN Care Management (Outreach call. ) 09/05/2024 Orders Only [facility] Internal [address] [phone] Lisset Luis HOOKMAN-BC 09/05/2024 MyChart Message Enc [facility] & Internal [address] [phone] Lisset Luis, HOOKMAN-BC Blood work 08/31/2024 2:30 PM CDT Home Care Visit [address] [address] Suzan Andrade OTA GARCIA HOME VISIT 08/31/2024 Patient Outreach [facility] & Internal [address] [phone] Lynn Vanegas, RN Care Management (CDM outreach) 08/30/2024 9:00 AM CDT Home Care Visit [address] [place] [address] Jayden Knox, PROJECT MANAGER PROCESS DEVELOPMENT PROJECT MANAGER PROCESS DEVELOPMENT HOME VISIT 08/27/2024 Scan MG HEALTH INFO SRVCS Scanned, Doc Med Group 08/25/2024 11:00 AM CDT Home Care Visit [facility] Home Care [address] [place] [address] [place] [address] Suzan Andrade OTA GARCIA HOME VISIT 08/24/2024 10:30 AM CDT Home Care Visit [facility] Care [address] [place] [address] Haylie Moreno, RN SN DISCIPLINE DISCHARGE 08/24/2024 Home Care Visit [facility] Home Care [address] [place] [address] [place] [address] Haylie Moreno, [facility] INTERDISCIPLINARY [place] 08/24/2024 Patient Outreach [facility] Internal Medicine [address] [phone] Lynn Vanegas RN Care Management (CDM call to patient's daughter. ) 08/23/2024 12:15 PM CDT Home Care Visit [facility] Home Care [address] [facility] [place] [address] Jayden Knox, PROJECT MANAGER PROCESS DEVELOPMENT PROJECT MANAGER PROCESS DEVELOPMENT HOME VISIT 08/22/2024 MyChart Message Enc [facility] Internal [address] [phone] Lisset Luis [facility] Hospital bed? 08/19/2024 MyChart Message Enc [facility] Internal [address] [phone] Lisset Luis [facility] blood sugar and weight 08/18/2024 10:00 AM CDT Home Care Visit [facility] Care [address] [place] [address] Jayden Knox, PROJECT MANAGER PROCESS DEVELOPMENT PROJECT MANAGER PROCESS DEVELOPMENT HOME VISIT 08/18/2024 Patient Outreach [facility] Internal Medicine [address] [phone] Lynn Vanegas, RN Care Management (CCM services initiated. ) 08/17/2024 1:00 PM CDT Home Care Visit [address] [phone] Kenton Maki, TREE TOPPER TREE TOPPER INITIAL EVALUATION 08/17/2024 11:30 AM CDT Home Care Visit [place] [phone] Samantha Miramontes LPN SN HOME VISIT 08/16/2024 1:30 PM CDT Home Care Visit [place] [phone] Jodie Howard, OT OT INITIAL EVALUATION 08/15/2024 3:30 PM CDT Home Care Visit [address] [address] Jaki Causey, PT PT INITIAL EVALUATION 08/15/2024 1:00 PM CDT Office Visit [facility] Internal Medicine [address] [phone] Lisset Luis, HOOKMAN- TCM (TCM [facility] PN and gout and CHF 08/02-08/09/24 also having pain when swallowing and Gerd pain better today though) 08/15/2024 Home Care Visit [place] [phone] Kenton Maki, TREE TOPPER CASE COMMUNICATION 08/15/2024 Travel 08/15/2024 Patient Outreach [facility] Medicine [address] [phone] Maricruz Montalvo, CONTRACT RUNNER Care Management 08/10/2024 8:30 AM CDT Home Care Visit [address] [phone] Viji Long, RN SN OASIS START OF CARE 08/10/2024 Plan of Care Documentation [address] [place] [address] [place] [address] 08/10/2024 Telephone [facility] [phone] [place] [phone] Lisset Luis FNP-BC Question 08/10/2024 Patient Outreach [facility] [phone] [place] [phone] Lynn Vanegas, RN TCM (TCM CATHY 07/14-07/22, [facility] 07/22-07/27, SJS 07/27-08/03, [facility] 08/03-08/09- Acute hypoxic respiratory failure) 08/10/2024 Hospital Follow-up Call [facility] Care Management [address] [place] [address] [place] LPN Follow Up Call ([facility] 08/03-08/09/24) 08/10/2024 Telephone [facility] Med/Surg [address] [place] [address] Fatemeh Guidry, photographic process attendant (Pt left discontinued Sporanox at facility called patients Daughter/POA explained that technicallt this medication is theres to keep and daughter asked for us to dispose of medication.) 08/09/2024 Patient Outreach [facility] [phone] [place] [phone] Lynn Vanegas, RN Hospital Follow Up (TCM CATHY 07/14-07/22, [facility] 07/22-07/27, SJS 07/27-08/03, [facility] 08/03-08/09/24 ) 08/09/2024 Telephone [facility] [address] [place] [phone] Lisset Luis FNP-BC TCM 08/04/2024 MyChart Message Enc [facility] Medical Group Family & Internal Medicine [facility] [address] [place] [phone] Lisset Luis, [facility] hospital bed 08/04/2024 Telephone [facility] Home Care [address] [place] [address] [place] [address] Lisset Luis, [facility] Advise 08/03/2024 3:50 PM CDT - 08/09/2024 1:48 PM CDT Hospital Encounter [facility] Med/Surg [address] [place] [address] John Emanuel MD Helmholt, Jennifer, NP Discharge Disposition: Home with Home Health Care 08/03/2024 Travel 07/27/2024 10:32 PM CDT - 08/03/2024 1:57 PM CDT Hospital Encounter [facility] [address] [place] [address] Vinny Caceres MD Shackour, Salim, MD Jabeen, Brinda Leung MD Discharge Disposition: Senior Living Facility from Last 3 Months Immunizations Immunization Administration Dates Next Due COVID-19 Vaccine (Generic) 02/01/2024 Fluad influenza vaccine, [place] drivalent (aIIV4), Inactivated, adjuvanted, preservative free, 0.5 mL,IM use 01/02/2023 Fluzone High Dose - >Age 65 (Prefilled Syringe) 03/01/2022 Influenza (Generic) 02/01/2024, 9,02/19/2017,2013 Influenza Adult (Generic) 02/05/2021,,02/21/2020,2017,02/12/2016,02/16/2015 MODERNA COVID-19 BIVALENT (1 2+), MRNA, LNP-S, PF 01/02/2023,02/06/2022 MODERNA COVID-19 (12+) MRNA, LNP-S, PF, 100 MCG/ 0.5 ML DOSE 08/13/2020,07/17/2020 MODERNA COVID-19 (RADIO INTELLIGENCE OPERATOR MARY ANN SHIVA), MRNA, LNP-S, PF, 50 MCG/ 0.25 ML DOSE 10/04/2021 Pneumococcal (Pneumovax 23) 02/15/2010 Pneumococcal (Prevnar 13) 09/19/2016 Shingrix 10/26/2018,08/30/2018,08/06/2018 Tdap (Generic) 05/18/1976 Zoster (Zostavax) 14931 Unt/0.65Ml 02/15/2013 Family History Medical History Relation Comments Cancer Brother Heart Disease Brother Hypertension Brother Kidney Disease Brother Asthma Daughter 1 Cancer Daughter 2 Early Father Heart Disease Father Hypertension Father [place] Father Arthritis Mother CHF Mother Cancer Mother [...] from your doctor or pharmacy? Never 07/22/2024 [facility] Utilities Answer Date Recorded In the past 12 months has e [employer], [employer], oil, or water [employer] threatened to shut off services in your [...] How often do you attend chur or confucianism services? 1 to 4 times per year 07/22/2024 Do you belong to any clubs o r organizations such as sabianist groups, unions, fraternal or athletic groups, or [...] Recorded Patient Health Questionnaire-2 Score 2 07/22/2024 [facility] - [...] in a assisted (including now)? No 02/02/2023 Housing Stability Vital Sign Answer Alex e Recorded In the last 12 months, was t here a time when you were not able to pay the mortgage or rent on time? No 07/28/2024 In the past 12 months, how m any times have you moved where you were living? 0 07/28/2024 At any time in the past 12 m [facility], were you homeless or living in a assisted (including now)? No 07/28/2024 Comments No Sex and Gender Information Value Date Recorded Sex Assigned at Female 06/22/2024 11:23 AM CREDIT DIRECTOR Legal Sex Female 8:19 PM CDT Gender Identity Female 07/22/2024 3:29 PM CREDIT DIRECTOR Sexual Orientation Straight 07/22/2024 3: 29 PM CREDIT DIRECTOR Last Filed Vital Signs Vital Sign Reading Time Taken Comments Blood Pressure 120/72 09/12/2024 4:04 PM CDT Pulse 94 09/12/2024 4:04 PM CDT Temperature 36.6 C (97.8 F) 09/12/2024 4:04 PM CDT Respiratory Rate 18 09/12/2024 4:04 PM CDT Oxygen Saturation 94% 09/12/2024 4:04 PM CDT Inhaled Oxygen Concentration - - Weight 71.7 kg (158 lb) 09/12/2024 10:22 AM CDT Height 162.6 cm (5' 4) 09/12/2024 10:22 AM CDT Body Mass Index 27.12 09/12/2024 10:22 AM CDT Plan of Treatment Upcoming Encounters Date Type Department Care Team (Late st Contact Info) Description 12/12/2024 11:00 AM CDT Office Visit [facility] Medical Group Family & Internal Medicine - [place] [phone] [place] [phone] [place] [address] [facility] [address] [facility] [place] [place] [address] Health Maintenance Due Date Last Done Comments Annual Medicare Wellness Visit 2006 RSV Immunization or 60+ Years (1 - 1-dose 75+ series) 2016 COVID-19 Vaccine ( season) 2024 02/01/2024, 01/02/2023, 02/06/2022, Additional history exists Hemoglobin A1C 12/05/2024 09/05/2024, 06/19, 06/23/2024, Additional history exists DTaP, Tdap and Td Vaccines (2 - Td or Tdap) 03/22/2025 05/18/1976 Postponed from 05/18/1986 (Patient Refused) Lipid Panel 09/05/2025 09/05/2024, 02/27/2023 Kidney Health Evaluation 09/12/2025 09/12/2024 Diabetes: Retinopathy Eye Exam 03/14/2026 03/14/2024 Pneumococcal Vaccine: 50+ Years Completed 09/19/2016, 02/15/2010 Zoster Vaccines Completed 10/26/2018, 08/16, 08/06/2018, Additional history exists Dexa Scan (General) Completed 11/28/2022, 11/28/2022, 10/16/2016 PHQ-2 (Physician [place]) Completed 07/22/2024 Meningococcal B Vaccine Aged Out No l onger eligible based on patient's age to complete this topic Meningococcal Vaccine Aged Out No mikki richardson eligible based on patient's age to complete this topic RSV Immunizations Under 20 Months Aged Out No longer eligible based on patient's age to complete this topic Medical Devices Implanted Type Area [employer] Device Identifier Shelf Expiration Date Model / Serial / Lot Stimulator Lead-09/29/2014 Implanted:Qty: 1 on 09/29/2014 Lead Implant [employer] [id number] / / [id number] Stimulator Lead-09/29/2014 Implanted:Qty: 1 on 09/29/2014 Lead Implant [employer] [id number] / / [id number] Stimulator Implant-09/20/19 Implanted:Qty: 1 on 09/19/2014 Stimulator Implant Spine Lumbar [employer] [id number] / [id number] / Description:MR Conditional a t 1.5 T only, full body eligible (follow most recent MRI technical manual conditions), stimulation needs to be turned off prior to MRI Procedures Procedure Name Priority Date/Time Associated Diagnosis Comments ALBUMIN URINE RANDOM W/CREATININE Routine 09/12/2024 11:48 AM CDT Stage 4 chronic kidney disease ([facility]) PTH - INTACT Routine 09/05/2024 10:39 AM CDT VITAMIN D, 25 OH Routine 09/05/2024 10:3 9 AM CDT Stage 4 chronic kidney disease ([facility]) LIPID PANEL Routine 09/05/2024 10:39 AM CDT Hyperlipidemia associated with type 2 diabetes mellitus ([facility]) HEMOGLOBIN, GLYCOSYLATED Routine 09/05/2024 10:39 AM CDT Diabetes mellitus ([facility]) Type 2 diabetes mellitus with diabetic polyneuropathy, with long-term current use of insulin ([facility]) COMPREHENSIVE METABOLIC PANEL Routine 09/05/2024 10:39 AM CDT Essential hypertension Atherosclerosis of [place] coronary artery of [place] heart without angina pectoris Stage 4 chronic kidney disease ([facility]/HCC) CBC W/DIFF AUTOMATED Routine 09/05/2024 10:39 AM CDT Stage 4 chronic kidney disease ([facility]/HCC) POCT GLUCOSE - DOCKED DEVICE Routine 08/09/2024 11:59 AM CDT POCT GLUCOSE - DOCKED DEVICE Routine 08/09/2024 7:26 AM CDT POCT GLUCOSE - DOCKED DEVICE Routine 08/08/2024 8:00 PM CDT POCT GLUCOSE - DOCKED DEVICE Routine 08/08/2024 4:30 PM CDT TROPONIN, QUANT STAT 08/08/2024 12:10 PM CDT POCT GLUCOSE - DOCKED DEVICE Routine 08/08/2024 11:26 AM CDT POCT GLUCOSE - DOCKED DEVICE Routine 08/08/2024 7:17 AM CDT BASIC METABOLIC PANEL Routine 08/08/2024 5:30 AM CDT MAGNESIUM Routine 08/08/2024 5:30 AM CDT POCT GLUCOSE - DOCKED DEVICE Routine 08/07/2024 4:32 PM CDT POCT GLUCOSE - DOCKED DEVICE Routine 08/07/2024 11:12 AM CDT MAGNESIUM STAT 08/07/2024 9:56 AM CDT BASIC METABOLIC PANEL STAT 08/07/2024 9:56 AM CDT CBC W/DIFF AUTOMATED STAT 08/07/2024 9:56 AM CDT POCT GLUCOSE - DOCKED DEVICE Routine 08/07/2024 7:20 AM CDT POCT GLUCOSE - DOCKED DEVICE Routine 08/06/2024 4:16 PM CDT POCT GLUCOSE - DOCKED DEVICE Routine 08/06/2024 11:30 AM CDT POCT GLUCOSE - DOCKED DEVICE Routine 08/06/2024 7:30 AM CDT POCT GLUCOSE - DOCKED DEVICE Routine 08/05/2024 8:03 PM CDT POCT GLUCOSE - DOCKED DEVICE Routine 08/05/2024 4:22 PM CDT POCT GLUCOSE - DOCKED DEVICE Routine 08/05/2024 11:17 AM CDT POCT GLUCOSE - DOCKED DEVICE Routine 08/05/2024 7:17 AM CDT POCT GLUCOSE - DOCKED DEVICE Routine 08/04/2024 7:27 PM CDT POCT GLUCOSE - DOCKED DEVICE Routine 08/04/2024 4:06 PM CDT POCT GLUCOSE - DOCKED DEVICE Routine 08/04/2024 11:36 AM CDT POCT GLUCOSE - DOCKED DEVICE Routine 08/04/2024 7:55 AM CDT POCT GLUCOSE - DOCKED DEVICE Routine 08/03/2024 7:51 PM CDT POCT GLUCOSE - DOCKED DEVICE Routine 08/03/2024 5:01 PM CDT HOME O2 EVAL Routine 08/03/2024 10:52 AM CDT POCT GLUCOSE - DOCKED DEVICE Routine 08/03/2024 10:49 AM CDT POCT GLUCOSE - DOCKED DEVICE Routine 08/03/2024 5:12 AM CDT BASIC METABOLIC PANEL Routine 08/03/2024 4:09 AM CDT POCT GLUCOSE - DOCKED DEVICE Routine 08/02/2024 10:06 PM CDT POCT GLUCOSE - DOCKED DEVICE Routine 08/02/2024 2:[address] CHEST W CON STAT 08/02/2024 11:32 AM CDT POCT GLUCOSE - DOCKED DEVICE Routine 08/02/2024 10:39 AM CDT BASIC METABOLIC PANEL STAT 08/02/2024 10:32 AM CDT POCT GLUCOSE - DOCKED DEVICE Routine 08/02/2024 5:13 AM CDT POCT GLUCOSE - DOCKED DEVICE Routine 08/01/2024 7:37 PM CDT POCT GLUCOSE - DOCKED DEVICE Routine 08/01/2024 4:01 PM CDT BASIC METABOLIC PANEL STAT 08/01/2024 2:18 PM CDT PRO-BRAIN NATRIURETIC PEPTIDE STAT 08/01/2024 2:18 PM CDT POCT GLUCOSE - DOCKED DEVICE Routine 08/01/2024 10:51 AM CDT POCT GLUCOSE - DOCKED DEVICE Routine 08/01/2024 6:29 AM CDT XR CHEST PORTABLE Today 08/01/2024 4:0 2 AM CDT Acute respiratory failure with hypoxia (CMS/HCC HHS/HCC) PNA (pneumonia) POCT GLUCOSE - DOCKED DEVICE Routine 07/31/2024 9:49 PM CDT GI PANEL PCR - STOOL Nurse Collected Priority 07/31/2024 5:47 PM CDT CLOSTRIDIUM DIFFICILE Nurse Collected Priority 07/31/2024 5:47 PM CDT POCT GLUCOSE - DOCKED DEVICE Routine 07/31/2024 4:08 PM CDT POCT GLUCOSE - DOCKED DEVICE Routine 07/31/2024 10:45 AM CDT COMPREHENSIVE METABOLIC PANEL STAT 07/31/2024 9:01 AM CDT CBC W/DIFF AUTOMATED STAT 07/31/2024 9:01 AM CDT POCT GLUCOSE - DOCKED DEVICE Routine 07/31/2024 6:01 AM CDT XR CHEST PORTABLE TIMED 07/31/2024 5:3 1 AM CDT DIABETIC RETINOPATHY EXAM (NEGATIVE)(SCAN ORDER) Routine 03/14/2024 from Last 3 Months or Most Recently Relevant to Health Maintenance Results * ALBUMIN/CREATININE RATIO, RANDOM URINE (09/12/2024 11:48 AM CDT) CREATININE RANDOM (U) 49 20 - 275 mg/dL [facility] MICROALBUMIN (U) 0.9 See Note: mg/dL [facility] Comment: Reference Range: Reference Range Not established MICROALB/CREAT 18 <30 mg/g creat [facility] Comment: The ADA defines abnormalities in albumin excretion as follows: Albuminuria Category Result (mg/g creatinine) Normal to Mildly increased <30 Moderately increased 30-299 Severely increased > OR = 300 The ADA recommends that at least two of three specimens collected within a 3-6 month period be abnormal before considering a patient to be within a diagnostic category. URINE SPECIMEN / Unknown 09/12/2024 11:48 AM CDT 09/13/2024 6:25 AM CDT Narrative Resulting Agency Comment Performing Organization Information: Site ID: [id number] Name: [facility] Address: [address] [address] Director: Cassie Trevino MD Lisset Luis [facility] URINE ORDERABLES Final R esult Performing Organization Address [facility] Co de Phone Number [employer] [facility] [employer] PRATIK - KARLA ORDERS [facility] [id number] [place] [phone], * (ABNORMAL) PTH - INTACT (09/05/2024 10:39 AM CDT) PTH INTACT 112(H) 16 - 77 pg/mL [facility] Comment: Interpretive Guide Intact PTH Calcium ------- Normal Parathyroid Normal Normal Hypoparathyroidism Low or Low Normal Low Hyperparathyroidism Primary Normal or High High Secondary High Normal or Low Tertiary High High Non-Parathyroid Hypercalcemia Low or Low Normal High 09/05/2024 10:3 9 AM CDT 09/05/2024 10:40 AM CDT Narrative [facility] - KARLA ORDERS - 09/06/2024 5:29 AM CDT FASTING:YES COLLECTION KIT GIVEN TO PATIENT. PATIENT ADVISED TO RETURN. FASTING: YES Resulting Agency Comment Performing Organization Information: Site ID: [id number] Name: [facility] Address: [address] [place] [phone] Director: Cassie Trevino MD Lisset Luis [facility] Final Re sult Performing Organization Address [facility] de Phone Number [employer] PRATIK - KARLA SOMMERS [facility] [id number] [place] [phone], * (ABNORMAL) HEMOGLOBIN, GLYCOSYLATED (09/05/2024 10:39 AM CDT) HGB A1C 9.3(H) <5.7 % of total Hgb [facility] [place] Comment: For someone without known diabetes, a hemoglobin A1c value of 6.5% or greater indicates that they may have diabetes and this should be confirmed with a follow-up test. For someone with known diabetes, a value <7% indicates that their diabetes is well controlled and a value greater than or equal to 7% indicates suboptimal control. A1c targets should be individualized based on duration of diabetes, age, comorbid conditions, and other considerations. Currently, no consensus exists regarding use of hemoglobin A1c for diagnosis of diabetes for children. 09/05/2024 10:3 9 AM CDT 09/05/2024 10:40 AM CDT Narrative [facility] - KARLA ORDERS - 09/06/2024 5:29 AM CDT FASTING:YES COLLECTION KIT GIVEN TO PATIENT. PATIENT ADVISED TO RETURN. FASTING: YES Resulting Agency Comment Performing Organization Information: Site ID: [place] Name: [facility] Address: [address] [place] [id number] Director: Cassie Trevino Lisset Luis [facility]- LABOR[facility] Final Re sult [facility] - KARLA ORDERS [address] [address], * (ABNORMAL) COMPREHENSIVE METABOLIC PANEL (09/05/2024 10:39 AM CDT) Only the most recent of2 resultswithin the time period is included. GLUCOSE 170(H) 65 - 99 mg/dL [facility] Comment: Fasting reference interval For someone without known diabetes, a glucose value >125 mg/dL indicates that they may have diabetes and this should be confirmed with a follow-up test. BUN 28(H) 7 - 25 mg/dL [facility] CREATININE S/P/B 1.22(H) 0.60 - 0.95 mg/dL [facility] GFR ESTIMATE 44(L) > OR = 60 mL/min/1. 73m2 [facility] BUN CREATININE RATIO 23(H) 6 - 22 (calc) [facility] SODIUM S/P/B 138 135 - 146 mmol/L [facility] POTASSIUM S/P/B 4.4 3.5 - 5.3 mmol/L [facility] CHLORIDE S/P/B 102 98 - 110 mmol/L [facility] CO2 29 20 - 32 mmol/L [facility] CALCIUM S/P/B 8.9 8.6 - 10.4 mg/dL [facility] TOTAL PROTEIN S/P/B 6.7 6.1 - 8.1 g/dL [facility] ALBUMIN S/P/B 4.1 3.6 - 5.1 g/dL [facility] GLOBULIN 2.6 1.9 - 3.7 g/dL (calc) [facility] ALBUMIN/GLOBULIN RATIO 1.6 1.0 - 2.5 (calc) [facility] BILIRUBIN TOTAL S/P/B 0.3 0.2 - 1.2 mg/dL [facility] ALKALINE PHOSPHATASE S/P/B 91 37 - 153 U/L [facility] AST 20 10 - 35 U/L [facility] ALT 18 6 - 29 U/L [facility] 09/05/2024 10:3 9 AM CDT 09/05/2024 10:40 AM CDT Narrative [facility] - KARLA ORDERS - 09/06/2024 5:29 AM CDT FASTING:YES COLLECTION KIT GIVEN TO PATIENT. PATIENT ADVISED TO RETURN. FASTING: YES Resulting Agency Comment Performing Organization Information: Site ID: [id number] Name: [facility] Address: [address] [place] [phone] Director: Cassie Trevino MD Lisset Luis [facility] Final Re sult [facility] KARLA [facility] [id number] [place] [phone], * (ABNORMAL) LIPID PANEL (09/05/2024 10:39 AM CDT) CHOLESTEROL 144 <200 mg/dL [facility] HDL 52 > OR = 50 mg/dL [facility] TRIGLYCERIDES 251(H) <150 mg/dL [facility] Comment: If a non-fasting specimen was collected, consider repeat triglyceride testing on a fasting specimen if clinically indicated. Juliana et al. J. of Clin. Lipidol. 2015;9:129-169. LDL (CALCULATED) 62 mg/dL (calc) [facility] Comment: Reference range: <100 Desirable range <100 mg/dL for primary prevention; <70 mg/dL for patients with CHD or diabetic patients with > or = 2 CHD risk factors. LDL-C is now calculated using the Luther calculation, which is a validated novel method providing better accuracy than the Friedewald equation in the estimation of LDL-C. Bhavin OGLESBY et al. ZION. 2013;310(19): 0718-2638 (http://education.Secret Sales/faq/FEV094) CHOL/HDL RATIO 2.8 <5.0 (calc) [facility] NON HDL CHOLESTEROL 92 <130 mg/dL (calc) [facility] Comment: For patients with diabetes plus 1 major ASCVD risk factor, treating to a non-HDL-C goal of <100 mg/dL (LDL-C of <70 mg/dL) is considered a therapeutic option. 09/05/2024 10:3 9 AM CDT 09/05/2024 10:40 AM CDT Narrative [facility] KARLA ORDERS - 09/06/2024 5:29 AM CDT FASTING:YES COLLECTION KIT GIVEN TO PATIENT. PATIENT ADVISED TO RETURN. FASTING: YES Resulting Agency Comment Performing Organization Information: Site ID: [id number] Name: [facility] Address: [address] [place] [address] Director: Cassie Trevino MD Lisset Luis [facility] Final Re sult [facility] KARLA [facility] [address] [place] [address], * (ABNORMAL) CBC W/DIFF AUTOMATED (09/05/2024 10:39 AM CDT) Only the most recent of3 resultswithin the time period is included. WBC 5.3 3.8 - 10.8 Thousand/ uL [facility] RBC 4.21 3.80 - 5.10 Million/u L [facility] HGB 10.9(L) 11.7 - 15.5 g/dL [facility] HCT 35.4 35.0 - 45.0 % [facility] MCV 84.1 80.0 - 100.0 fL [facility] MCH 25.9(L) 27.0 - 33.0 pg [facility] MCHC 30.8(L) 32.0 - 36.0 g/dL [facility] Comment: For adults, a slight decrease in the calculated MCHC value (in the range of 30 to 32 g/dL) is most likely not clinically significant; however, it should be interpreted with caution in correlation with other red cell parameters and the patient's clinical condition. RDW 17.3(H) 11.0 - 15.0 % [facility] PLT 231 140 - 400 Thousand/ uL [facility] MPV 9.4 7.5 - 12.5 fL [facility] ABS. NEUTROPHILS 3,138 1,500 - 7,800 cells/uL [facility] ABS. LYMPHOCYTES 1,532 850 - 3,900 cells/uL [facility] ABS. MONOCYTES 445 200 - 950 cells/uL [facility] ABS. EOSINOPHILS 138 15 - 500 cells/uL [facility] ABS. BASOPHILS 48 0 - 200 cells/uL [facility] SEG NEUTROPHILS 59.2 % [facility] LYMPHOCYTES 28.9 % [facility] MONOCYTES 8.4 % [facility] EOSINOPHILS 2.6 % [facility] BASOPHILS 0.9 % [facility] 09/05/2024 10:3 9 AM CDT 09/05/2024 10:40 AM CDT Narrative [facility] - KARLA ORDERS - 09/06/2024 5:29 AM CDT FASTING:YES COLLECTION KIT GIVEN TO PATIENT. PATIENT ADVISED TO RETURN. FASTING: YES Resulting Agency Comment Performing Organization Information: Site ID: [id number] Name: [facility] Address: [address] [place] [address] Director: Cassie Trevino MD us Lisset Luis [facility] Final Re sult [facility] - KARLA ORDERS [facility] [address] [facility] [address], DD * (ABNORMAL) VITAMIN D, 25 OH (09/05/2024 10:39 AM CDT) VITAMIN D 25 HYDROXY TOTAL S/P/B 19(L) 30 - 100 ng/mL [facility] Comment: Vitamin D Status 25-OH Vitamin D: Deficiency: <20 ng/mL Insufficiency: 20 - 29 ng/mL Optimal: > or = 30 ng/mL For 25-OH Vitamin D testing on patients on D2-supplementation and patients for whom quantitation of D2 and D3 fractions is required, the QuestAssureD(TM) 25-OH VIT D, (D2,D3), LC/MS/MS is recommended: order code [id number] (patients >2yrs). See Note 1 Note 1 For additional information, please refer to http://education.Secret Sales/faq/YOW115 (This link is being provided for informational/ educational purposes only.) 09/05/2024 10:3 9 AM CDT 09/05/2024 10:40 AM CDT Narrative [facility] - KARLA ORDERS - 09/06/2024 5:29 AM CDT FASTING:YES COLLECTION KIT GIVEN TO PATIENT. PATIENT ADVISED TO RETURN. FASTING: YES Resulting Agency Comment Performing Organization Information: Site ID: [id number] Name: [facility] Address: [address] [place] [phone] Director: Cassie Trevino MD Lisset Luis [facility] Final Re sult Performing Organization Address [facility]/ZIP Co de Phone Number [employer] [facility] [employer] PRATIK - KARLA MATTHIEU [facility] [id number] [place] [phone], * (ABNORMAL) POCT glucose (08/09/2024 11:59 AM CDT) Only the most recent of36 resultswithin the time period is included. GLUCOSE POC 219(H) 70 - 110 mg/dL 08/10/2024 7:[address] [facility] () [facility] 08/09/2024 11:5 9 AM CDT Nita De Luna PLASMA TABLE OPERATOR POCT ORDERABLES - DEVICE Fi nal Result [facility] [address] [place] [address], [place] [phone] * TROPONIN, QUANT (08/08/2024 12:10 PM CDT) [facility] TROPONIN I HIGH SENSITIVITY 11 0 - 50 ng/L 08/08/2024 12:37 PM CDT [facility] Comment: HIGH DOSES OF BIOTIN, TROPONIN-SPECIFIC AUTOANTIBODIES, AND ANTIBODY THERAPY CONTAINING HAMA MAY INTERFERE WITH THIS TEST RESULT. CORRELATION TO CLINICAL HISTORY AND PRESENTATION RECOMMENDED. 08/08/2024 12:1 0 PM CDT Nita De Luna NP LABORATORY Final Resul t [facility] [address] [place] [address], * (ABNORMAL) BASIC METABOLIC PANEL (08/08/2024 5:30 AM CDT) Only the most recent of5 resultswithin the time period is included. [facility] GLUCOSE 162(H) 70 - 99 MG/DL 08/08/2024 7:03 AM CDT [facility] BUN 49(H) 7 - 18 MG/DL 08/08/2024 7:03 AM CDT [facility] CREATININE S/P/B 1.43(H) 0.55 - 1.02 MG/DL 08/08/2024 7:03 AM CDT [facility] SODIUM S/P/B 137 136 - 145 MMOL/L 08/08/2024 7:03 AM CDT [facility] POTASSIUM S/P/B 4.3 3.5 - 5.1 MMOL/L 08/08/2024 7:03 AM CDT [facility] CHLORIDE S/P/B 100 100 - 108 MMOL/L 08/08/2024 7:03 AM CDT [facility] CO2 28.8 21 - 32 MMOL/L 08/08/2024 7:03 AM CDT [facility] CALCIUM S/P/B 9.3 8.5 - 10.1 MG/DL 08/08/2024 7:03 AM CDT [facility] ANION GAP 8.2 5 - 15 MMOL/L 08/08/2024 7:03 AM T [facility] BUN CREATININE RATIO 34.3(H) 6 - 26 08/08/2024 7:03 AM T [facility] GFR ESTIMATE 36(L) >90 ML/MIN/1.7 3 M2 08/08/2024 7:03 AM T [facility] Comment: NOTE: eGFR is not calculated for patients <18 years of age. This is an estimated GFR calculation using the new CKD EPI creatinine equation without race and so does not require a correction factor for race. This estimated GFR should not be used for calculating drug doses. 08/08/2024 5:3 0 AM CDT Nita De Luna NP LABORATORY Final Resul t [facility] [address] [place] [address], [place] [phone] * MAGNESIUM (08/08/2024 5:30 AM CDT) Only the most recent of2 resultswithin the time period is included. MAGNESIUM 2.4 1.8 - 2.4 MG/DL 08/08/2024 7:03 AM CDT [facility] 08/08/2024 5:30 AM CDT Nita De Luna NP LABORATORY Final Resul t [facility] [address] [place] [address], * CT CHEST W CON (08/02/2024 11:32 AM CDT) Anatomical Region Laterality Modality Chest Computed Tomogra phy 08/02/2024 1:39 PM CDT Impressions 08/02/2024 1:49 PM CDT IMPRESSION: 1. Probable improving multifocal pneumonia versus improving pulmonary edema. 2. Minimal pleural effusions, decreased. 3. Coronary artery disease. 4. Small pericardial effusion, unchanged. Ordered By: BRINDA FUENTES Interpreted By: Lalo Maki MD, 08/02/2024 1:39 PM Narrative 08/02/2024 1:49 PM CDT [address] [address] EXAMINATION: CT Chest with contrast DATE: 08/02/2024 11:27 AM CLINICAL HISTORY: Pneumonia. COMPARISON: 07/26/2024, 07/18/2024 TECHNIQUE: Computed tomography of the chest was obtained after administration of intravenous contrast, 80 mL of Isovue-370, without immediate complication according to routine protocol. A dose lowering technique was used for this procedure, which may include, but is not limited to, dose reduction technique, automated exposure control, the use of iterative reconstruction, and ALARA (As Low As Reasonably Achievable) / Image Gently techniques. FINDINGS: Expiration images chest. No pneumothorax. Minimal pleural effusions, decreased. Previously described multifocal groundglass opacities and consolidation again identified, with multiple areas of improvement, especially in the right lung. Interlobular septal thickening. Lobular oligemic perfusion/mosaic attenuation. Small pericardial effusion, unchanged. Atherosclerotic thoracic aorta. Coronary artery disease. Calcified hilar lymph nodes. Prominent mediastinal lymph nodes, likely reactive, unchanged. Nonspecific left adrenal gland thickening. Cholecystectomy clips. Multiple compression deformities in the spine, unchanged. Spinal stimulator device. Spondylosis. Procedure Note Lalo Maki MD - 08/02/2024 [facility] [address] [place], [place] [address] EXAMINATION: CT Chest with contrast DATE: 08/02/2024 11:27 AM CLINICAL HISTORY: Pneumonia. COMPARISON: 07/26/2024, 07/18/2024 TECHNIQUE: Computed tomography of the chest was obtained afteradministration of intravenous contrast, 80 mL of Isovue-370, withoutimmediate complication according to routine protocol. A dose loweringtechnique was used for this procedure, which may include, but is notlimited to, dose reduction technique, automated exposure control, the useof iterative reconstruction, and ALARA (As Low As Reasonably Achievable) /Image Gently techniques. FINDINGS: Expiration images chest. No pneumothorax. Minimal pleuraleffusions, decreased. Previously described multifocal groundglassopacities and consolidation again identified, with multiple areas ofimprovement, especially in the right lung. Interlobular septal thickening.Lobular oligemic perfusion/mosaic attenuation. Small pericardial effusion,unchanged. Atherosclerotic thoracic aorta. Coronary artery disease.Calcified hilar lymph nodes. Prominent mediastinal lymph nodes, likelyreactive, unchanged. Nonspecific left adrenal gland thickening.Cholecystectomy clips. Multiple compression deformities in the spine,unchanged. Spinal stimulator device. Spondylosis. IMPRESSION: 1. Probable improving multifocal pneumonia versus improving pulmonaryedema. 2. Minimal pleural effusions, decreased. 3. Coronary artery disease. 4. Small pericardial effusion, unchanged. Ordered By: BRINDA FUENTES Interpreted By: Lalo Maki MD, 08/02/2024 1:39 PM us Brinda Fuentes MD CT Final Result * (ABNORMAL) PRO-BRAIN NATRIURETIC PEPTIDE (08/01/2024 2:18 PM CDT) PRO-B TYPE NATRIURETIC PEPTIDE 1,441(H) <450 PG/ML 08/01/2024 2:50 PM CDT [facility] Comment: AGE INDEPENDENT: <300 PG/ML HAS A 99% NEGATIVE PREDICTIVE VALUE FOR EXCLUDING ACUTE CHF <50 YEARS: >450 PG/ML IS CONSISTENT WITH ACUTE CHF 50-75 YEARS: >900 PG/ML IS CONSISTENT WITH ACUTE CHF >75 YEARS: >1800 PG/ML IS CONSISTENT WITH ACUTE CHF IN PATIENTS WITH RENAL INSUFFICIENCY (GFR <60), >1200 PG/ML YIELDS A DIAGNOSTIC SENSITIVITY AND SPECIFICITY OF 89% AND 72% FOR ACUTE CHF. 08/01/2024 2:18 PM CDT us Brinda Fuentes MD LABORATORY Final Result [facility] [address] [place] [address], [id number] * XR CHEST PORTABLE (08/01/2024 4:02 AM CDT) Only the most recent of2 resultswithin the time period is included. Anatomical Region Laterality Modality Chest Radiographic Jumana ging 08/01/2024 4:38 AM CDT Impressions 08/01/2024 4:39 AM CDT IMPRESSION: Very mild improved aeration of the right lung with significant residual diffuse infiltrate persisting. Referred By: SOO YORK Interpreted By: Nathan Wooten MD, 08/01/2024 4:38 AM Narrative 08/01/2024 4:39 AM CDT [address] [address] Examination: XR CHEST PORTABLE Exam time: 08/01/2024 4:00 AM Indication: Pneumonia Comparison: Chest 07/31/2024 Findings: Upright AP view of the chest was obtained. Cardiomegaly. Very mild improved aeration of the right lung with significant residual diffuse infiltrate persisting. No pleural effusion or pneumothorax. Procedure Note Nathan Wooten MD - 08/01/[address] [address] Examination: XR CHEST PORTABLE Exam time: 08/01/2024 4:00 AM Indication: Pneumonia Comparison: Chest 07/31/2024 Findings: Upright AP view of the chest was obtained. Cardiomegaly. Verymild improved aeration of the right lung with significant residual diffuseinfiltrate persisting. No pleural effusion or pneumothorax. IMPRESSION: Very mild improved aeration of the right lung with significantresidual diffuse infiltrate persisting. Referred By: SOO YORK Interpreted By: Nathan Wooten MD, 08/01/2024 4:38 AM Mary Farrell MD GENERAL IMAGING Final Result * GI PANEL PCR - STOOL (07/31/2024 5:47 PM CDT) CAMPYLOBACTER PCR (STOOL) NOT DETECTED NOT DETECTED 08/01/2024 8:16 PM CDT [facility] PLESIOMONAS SHIGELLOIDES PCR (STOOL) NOT DETECTED NOT DETECTED 08/01/2024 8:16 PM CDT [facility] SALMONELLA PCR (STOOL) NOT DETECTED NOT DETECTED 08/01/2024 8:16 PM CDT [facility] VIBRIO PCR (STOOL) NOT DETECTED NOT DETECTED 08/01/2024 8:16 PM CDT [facility] VIBRIO CHOLERAE PCR (STOOL) NOT DETECTED NOT DETECTED 08/01/2024 8:16 PM CDT [facility] YERSINIA ENTEROCOLITICA PCR (STOOL) NOT DETECTED NOT DETECTED 08/01/2024 8:16 PM CDT [facility] ENTEROAGGREGATIVE ECOLI PCR (STOOL) NOT DETECTED NOT DETECTED 08/01/2024 8:16 PM CDT [facility] ENTEROPATHOGENIC ECOLI PCR (STOOL) NOT DETECTED NOT DETECTED 08/01/2024 8:16 PM CDT [facility] ENTEROTOXIGENIC ECOLI PCR (STOOL) NOT DETECTED NOT DETECTED 08/01/2024 8:16 PM CDT [facility] SHIGA LIKE TOXIN ECOLI PCR (STOOL) NOT DETECTED NOT DETECTED 08/01/2024 8:16 PM CDT [facility] SHIG/ENTEROINVASIVE ECOLI PCR (STOOL) NOT DETECTED NOT DETECTED 08/01/2024 8:16 PM CDT [facility] CRYPTOSPORIDIUM PCR (STOOL) NOT DETECTED NOT DETECTED 08/01/2024 8:16 PM CDT [facility] CYCLOSPORA CAYETANENSIS PCR (STOOL) NOT DETECTED NOT DETECTED 08/01/2024 8:16 PM CDT [facility] ENTAMOEBA HISTOLYTICA PCR (STOOL) NOT DETECTED NOT DETECTED 08/01/2024 8:16 PM CDT [facility] GIARDIA LAMBLIA PCR (STOOL) NOT DETECTED NOT DETECTED 08/01/2024 8:16 PM CDT [facility] ADENOVIRUS F40/41 PCR (STOOL) NOT DETECTED NOT DETECTED 08/01/2024 8:16 PM CDT [facility] ASTROVIRUS PCR (STOOL) NOT DETECTED NOT DETECTED 08/01/2024 8:16 PM [facility]T [facility] [facility] GI/GII PCR (STOOL) NOT DETECTED NOT DETECTED 08/01/2024 8:16 PM CDT [facility] ROTAVIRUS A PCR (STOOL) NOT DETECTED NOT DETECTED 08/01/2024 8:16 PM CDT [facility] SAPOVIRUS PCR (STOOL) NOT DETECTED NOT DETECTED 08/01/2024 8:16 PM CDT [facility] STOOL SPECIMEN / Unknown 07/31/2024 5:47 PM CDT us Brinda Fuentes MD MICROBIOLOGY - GENERAL ORDER EUNICE Final Result [facility] [address] [place] [address], * CLOSTRIDIUM DIFFICILE (07/31/2024 5:47 PM CDT) [facility] ANTIGEN NEGATIVE NEGATIVE 07/31/2024 7:23 PM CDT [facility] C DIFFICILE TOXIN A&B (STOOL) NEGATIVE NEGATIVE 07/31/2024 7:23 PM CDT [facility] COMMENT GDH NEGATIVE/TOXI N A & B NEGATIVE: NEGATIVE FOR TOXIGENIC C. DIFFICILE. GDH NEGATIVE/TOXI N A & B NEGATIVE: NEGATIVE FOR TOXIGENIC C. 07/31/2024 7:23 PM CDT [facility] STOOL SPECIMEN / Unknown 07/31/2024 5:47 PM CDT us Brinda Fuentes MD BODY FLUIDS AND STOOLS ORDER EUNICE Final Result Performing Organization Address 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 Advance Directives and Svitlana feliz Will 10/25/2024 1:33 PM POLST * Full Code (Latest Code Status on File) Date Activated Date Inactivated Comments 08/10/2024 3:43 PM * DNR Date Activated Date Inactivated Comments 08/05/2024 8:42 AM 08/09/2024 4:04 PM * Full Code Date Activated Date Inactivated Comments 08/03/2024 5:01 PM 08/05/2024 8:42 AM * DNR Date Activated Date Inactivated Comments 07/27/2024 10:34 PM 08/03/2024 3:50 PM * DNR Date Activated Date Inactivated Comments 07/22/2024 3:07 PM 07/27/2024 10:32 [address] Supervisor Relationship Specialty Start Date End Date Lisset Luis, [facility]- [address], [address] [place] [address] PCP - General Nurse Practitioner Family 01/27/2311/15 [place] [address], [address] [place] [address] CARDIOVASCULAR DISEASE 06/04/23 Gabriele Doshi MD [address] [place] [address] Referring Physician NEPHROLOGY 06/04/23
--- OUTSIDE RECORDS SUMMARY | 2024-10-31 16:56 | XMS_ITS | Encounter Summary ---
Author Organization [facility] Address [facility]ly [facility] [place] [address] Care Team Providers Care Java Xml Developer Name Role Phone Lisset Luis [facility] Primary Care Provider + Raymond Brunson MD Unavailable Unavail able Gabriele Doshi MD Unavailable [phone] Encounter Details Date Type Department Care Team (Late st Contact Info) Description 10/24/2024 MyCKanobu Networkt Message Enc [facility] Family & Internal Medicine [address] [address] Lisset Luis, [address], [address] [place] [address] Glucose Social History Tobacco Use Types Packs/Day Years [...] from your doctor or pharmacy? Never 07/22/2024 [facility] Utilities Answer Date Recorded In the past 12 months has e IQuum, oil, or water [employer] threatened to shut off services in your [...] often do you attend chur ch or orthodox services? 1 to 4 times per year 07/22/2024 Do you belong to any clubs o r organizations such as scientologist groups, unions, fraternal or athletic groups, or [...] Recorded Patient Health Questionnaire-2 Score 2 07/22/2024 [facility] - Occupational Stress [...] in a chcf (including now)? No 02/02/2023 Housing Stability Vital Sign Answer Alex e Recorded In the last 12 months, was t here a time when you were not able to pay the mortgage or rent on time? No 07/28/2024 In the past 12 months, how m any times have you moved where you were living? 0 07/28/2024 At any time in the past 12 [facility], were you homeless or living in a chcf (including now)? No 07/28/2024 Comments No Sex and Gender Information Value Date Recorded Sex Assigned at Female 06/22/2024 11:23 AM RN TRANSITIONAL Legal Sex Female 8:19 PM CDT Gender Identity Female 07/22/2024 3:29 PM RN TRANSITIONAL Sexual Orientation Straight 07/22/2024 3: 29 PM RN TRANSITIONAL documented as of this encounter Functional Status [...] documented in this encounter Progress Notes * QUINTIN Haynes-JEFFRY - 10/24/2024 3:54 PM CDT Noted. If she can try to get sugar free cappaccinos and decrease dessert intake that will help. * Fina Cormier MA - 10/24/2024 3:32 PM CDT FYI * JENI Haynes - 10/24/2024 1:54 PM CDT Any idea on why there is such a big change? She was running <300 the last few weeks. Increase lantus 50 units daily and 14 units meal insulin TID. Hold meal insulin if glucose <70. Send glucosereadings in 3 days. * Fina Cormier MA - 10/24/2024 1:09 PM CDT Please advise documented in this encounter Plan of Treatment Upcoming Encounters Date Type Department Care Team (Late st Contact Info) Description 12/12/2024 11:00 AM CDT Office Visit [facility] Family & Internal Medicine - [place] [id number] [place] [address] [place] [address] [facility] [address]. [place] [address] documented as of this encounter Visit Diagnoses Not on filedocumented in this encounter Care Teams Java Xml Developer Relationship Specialty Start Date End Date Lisset Lius FNP-BC [address] [facility], [address] [place] [address] PCP - General Nurse Practitioner Family 01/27/23 7/06/11 [place] [address] [facility], [address] [place] [address] CARDIOVASCULAR DISEASE 06/04/23 Gabriele Doshi MD [address] [facility] [address] [place] [address] Referring Physician NEPHROLOGY 06/04/23 documented as of this encounter
--- OUTSIDE RECORDS SUMMARY | 2024-10-31 16:56 | XMS_ITS | Encounter Summary ---
Author Organization [facility] Address [facility] [place] [address] Care Team Providers Care Material Handling Supervisor Name Role Phone Lisset Lius [facility] Primary Care Provider + Raymond Brunson MD Unavailable Unavail able Gabriele Doshi MD Unavailable [phone] Lynn Vanegas RN Unavailable [phone] Reason for Visit * Reason Onset Date Comments Appointment Request 06/15/2024 Encounter Details Date Type Department Care Team (Late st Contact Info) Description 06/15/2024 MyCPRUSLAND SLt Message Enc [facility] Group Family & Internal Medicine [facility] [address] [place] [address] Lisset Luis, [facility] [address] [place] [address], [address] [place] [address] Nestor burciaga Social History Tobacco Use Types Packs/Day Years [...] Sex Assigned at Female 06/22/2024 11:23 AM VOLTMETER OPERATOR Legal Sex Female 8:19 PM CDT Gender Identity Female 07/22/2024 3:29 PM VOLTMETER OPERATOR Sexual Orientation Straight 07/22/2024 3: 29 PM VOLTMETER OPERATOR documented as of this encounter Functional Status * Are you deaf or do you have serious difficulty hearing Answer Date of Assessment Author Status Yes 02/02/2023 6:35 PM CDT Anahy Vanegas, R N Active * Are you blind or do you have serious difficulty seeing, even when wearing glasses? Answer Date of Assessment Author Status No 02/02/2023 6:35 PM CDT Anahy Vanegas, R N Active * Do you have serious difficulty walking or climbing stairs? Answer Date of Assessment Author Status Yes 02/02/2023 6:35 PM CDT Anahy Vanegas, R N Active * Do you have difficulty dressing or bathing? Answer Date of Assessment Author Status Yes 02/02/2023 6:35 PM CDT Anahy Vanegas, R N Active * Because of a physical, mental, or emotional condition, do you have difficulty doing errands alone such as visiting a doctor's office or shopping? Answer Date of Assessment Author Status Yes 02/02/2023 6:35 PM CDT Anahy Vanegas, R N Active documented as of this encounter Mental Status * Because of a physical, mental, or emotional condition, do you have serious difficulty concentrating, remembering, or making decisions? Answer Entry Date Author Status No 02/02/2023 6:35 PM CDT Anahy Vanegas, R N Active documented in this encounter Progress Notes * Jackie Hall RN - 06/15/2024 4:29 PM CST Noted. METER OPERATOR * Radha Goyal - 06/15/2024 4:18 PM CST Paige called and set up an apt for ceci on 07/04. She was put on the wait list to try to get an earlier opening. METER OPERATOR * JENI Haynes - 06/15/2024 12:30 PM CST She will need a [id number] to order a hospital bed. METER OPERATOR * Jackie Hall RN - 06/15/2024 11:36 AM CST Please advise? METER OPERATOR documented in this encounter Plan of Treatment Upcoming Encounters Date Type Department Care Team (Late st Contact Info) Description 12/12/2024 11:00 AM CDT Office Visit [facility] Medical Group Family & Internal Medicine - [place] [address] [place] [address] [place] [address] [facility] [address] [facility]. [place], [place] [id number] documented as of this encounter Visit Diagnoses Not on filedocumented in this encounter Additional Health Concerns Infection Onset Date Last Indicated Resolved Time COVID-19 Rule Out 06/27/2024 06/27/2024 06/27/2024 2:39 PM VOLTMETER OPERATOR Respiratory Rule Out 07/14/2024 07/14/2024 025 12:08 AM VOLTMETER OPERATOR Respiratory Rule Out 07/26/2024 07/26/2024 025 9:16 PM CDT Tuberculosis Rule-Out 07/29/2024 07/29/20242024 6:47 AM CDT documented as of this encounter Care Teams Material Handling Supervisor Relationship Specialty Start Date End Date Lisset Luis FNP-BC [address] [facility] [address] [place], [place] [id number] PCP - General Nurse Practitioner Family 01/27/23 11/25/24 [place] [address] [facility] [address] [place] [address] CARDIOVASCULAR DISEASE 06/04/23 Gabriele Doshi MD [address] [place] [address] Referring Physician NEPHROLOGY 06/04/23 Lynn Vanegas, RN [address] [place] [address] Bus Transportation Manager (Ambulatory) REGISTERED NURSE 07/15/24 09/15/24 documented as of this encounter
--- OUTSIDE RECORDS SUMMARY | 2024-10-31 16:56 | XMS_ITS | Encounter Summary ---
Author Organization [facility] Address [facility] [place] [address] Care Team Providers Care Manufacturing Helper Name Role Phone Lisset Luis [facility] Primary Care Provider + Raymond Brunson MD Unavailable Unavail able Gabriele Doshi MD Unavailable [phone] Lynn Vanegas RN Unavailable [phone] Encounter Details Date Type Department Care Team (Late st Contact Info) Description 03/04/2023 TheraCoatt Message Enc [facility] Medical Group Family & Internal Medicine [facility] [address] [place] [address] Lisset Luis, [address], [address] [place] [address] A1C Social History Tobacco Use [...] nursing home (including now)? No 02/02/2023 Comments Unknown Sex and Gender Information Value Date Recorded Sex Assigned at Female 06/22/2024 11:23 AM GRINDER OPERATOR AUTOMATIC Legal Sex Female 8:19 PM CDT Gender Identity Female 07/22/2024 3:29 PM GRINDER OPERATOR AUTOMATIC Sexual Orientation Straight 07/22/2024 3: 29 PM GRINDER OPERATOR AUTOMATIC documented as of this encounter Functional Status [...] HOSPITAL Medical Group Family & Internal Medicine [facility] [phone] [place] [address] [place] [address] [facility] [address] [facility] [place] [address] documented as of this encounter Visit Diagnoses Not on filedocumented in this encounter Additional Health Concerns Infection Onset Date Last Indicated Resolved Time COVID-19 Rule Out 06/27/2024 06/27/2024 06/27/2024 2:39 PM GRINDER OPERATOR AUTOMATIC Respiratory Rule Out 07/14/2024 07/14/2024 025 12:08 AM GRINDER OPERATOR AUTOMATIC Respiratory Rule Out 07/26/2024 07/26/2024 025 9:16 PM CDT Tuberculosis Rule-Out 07/29/2024 07/29/20242024 6:47 AM CDT documented as of this encounter Care Teams Manufacturing Helper Relationship Specialty Start Date End Date Lisset Luis, EKG [facility]- [address], [address] [place] [address] PCP - General Nurse Practitioner Family 01/27/23 11/25/24 [place] [address], [address] [place] [address] CARDIOVASCULAR DISEASE 06/04/23 Gabriele Doshi MD [address] [place] [address] Referring Physician NEPHROLOGY 06/04/23 Lynn Vanegas, RN [address] [place] [address] Stock Broker Supervisor (Ambulatory) REGISTERED NURSE 07/15/24 09/15/24 documented as of this encounter
--- OUTSIDE RECORDS SUMMARY | 2024-10-31 16:56 | XMS_ITS | Encounter Summary ---
Author Organization [facility] Address Formerly [facility] [place] [address] Care Team Providers Care Cleaning And Washing Equipment Operator Name Role Phone Lisset Luis [facility] Primary Care Provider + Raymond Brunson MD Unavailable Unavail able Gabriele Doshi MD Unavailable [phone] Lynn Vanegas RN Unavailable [phone] Encounter Details Date Type Department Care Team (Late st Contact Info) Description 12/02/2023 MyCWildfire, a division of Googlet Message Enc [facility] Medical Group Family & Internal Medicine [facility] [phone] [place] [address] Lisset Luis, [address], [address] [place] [address] [facility] referral Social History Tobacco Use Types [...] place to sleep or slept in a mcc (including now)? No 02/02/2023 Comments No Sex and Gender Information Value Date Recorded Sex Assigned at Female 06/22/2024 11:23 AM POSTAL TRANSPORTATION CLERK Legal Sex Female 8:19 PM CDT Gender Identity Female 07/22/2024 3:29 PM POSTAL TRANSPORTATION CLERK Sexual Orientation Straight 07/22/2024 3: 29 PM POSTAL TRANSPORTATION CLERK documented as of this encounter Functional Status [...] MA - 12/03/2023 3:17 PM CDT Referral [facility] Department of Neurology [address] [place] [address] Movement Disorder's clinic documented in this encounter Plan of Treatment Upcoming Encounters Date Type Department Care Team (Late st Contact Info) Description 12/12/2024 11:00 AM CDT Office Visit [facility] Medical Group Family & Internal Medicine [address] [address] Christine Plasencia NP [address] [place] [phone] (Work) documented as of this encounter Visit Diagnoses Not on filedocumented in this encounter Additional Health Concerns Infection Onset Date Last Indicated Resolved Time COVID-19 Rule Out 06/27/2024 06/27/2024 06/27/2024 2:39 PM POSTAL TRANSPORTATION CLERK Respiratory Rule Out 07/14/2024 07/14/2024 025 12:08 AM POSTAL TRANSPORTATION CLERK Respiratory Rule Out 07/26/2024 07/26/2024 025 9:16 PM CDT Tuberculosis Rule-Out 07/29/2024 07/29/20242024 6:47 AM CDT documented as of this encounter Care Teams Cleaning And Washing Equipment Operator Relationship Specialty Start Date End Date Lisset Luis, [facility]- [address], [address] [place] [address] PCP - General Nurse Practitioner Family 01/27/23 11/25/24 [place] [address] [facility], [address] [place] [address] CARDIOVASCULAR DISEASE 06/04/23 Gabriele Doshi MD [address] [facility] [address] [place] [address] Referring Physician NEPHROLOGY 06/04/23 Lynn Vanegas RN [address] [place] [address] Churn Driller Helper (Ambulatory) REGISTERED NURSE 07/15/24 09/15/24 documented as of this encounter
--- OUTSIDE RECORDS SUMMARY | 2024-10-31 16:56 | XMS_ITS | Encounter Summary ---
Author Organization [facility] Address [facility]ly [facility], [address] [place] [address] Care Team Providers Care Agricultural Labor Camp Manager Name Role Phone Coco MuñizP- Primary Care Provider + Raymond Brunson MD Unavailable Unavail able Gabriele Doshi MD Unavailable [phone] Lynn Vanegas RN Unavailable [phone] Reason for Referral * Imaging (Routine) - Closed Specialty Diagnoses / Procedures Referred By Zenaida grady Referred To Contact RADIOLOGY Diagnoses Multiple pulmonary nodules Procedures CT CHEST WO CON Coco Muñiz FNP-BC [address] [facility], [address] [place] [address] Phone: tel: fax: [facility] [address] [facility] [address] [place] [address] Phone: tel: fax: Referral ID Status Reason Start Date Expiration Date Visits Re quested Visits Authorized [id number] Closed 04/23/2023 04/23/2024 1 1 Y CHIEF Encounter Details Date Type Department Care Team (Late st Contact Info) Description 04/13/2023 MyChart Message Enc [facility] Medical Group Family & Internal Medicine [facility] [address] [place] [address] Coco Muñiz, [facility] [address] [facility], [address] [place] [address] CT scan Social History Tobacco [...] Sex Assigned at Female 06/22/2024 11:23 AM PARTY CHIEF Legal Sex Female 8:19 PM CDT Gender Identity Female 07/22/2024 3:29 PM PARTY CHIEF Sexual Orientation Straight 07/22/2024 3: 29 PM PARTY CHIEF documented as of this encounter Functional Status [...] Haynes - 04/24/2023 4:24 PM CST Noted Y CHIEF * Jackie Hall RN - 04/24/2023 11:[address] report faxed to [facility] [phone] Inquiring about the need for a thoracic MRI in addition to the lumbar MRI-which is scheduled on 05/05/2023. Requested a return call. Y CHIEF * Jackie Hall RN - 04/23/2023 10:22 [...] og as lumbar spine. Message left at [phone] to return call. Y CHIEF documented in this encounter Plan of Treatment Upcoming Encounters Date Type Department Care Team (Late st Contact Info) Description 12/12/2024 11:00 AM CDT Office Visit [facility] Medical Group Family & Internal Medicine [facility] [phone] [place] [address] [place] [address] [facility] [address] [place] [address] documented as of this encounter Results * CT CHEST WO CON (06/02/2023 1:33 PM PARTY CHIEF) Anatomical Region Laterality Modality Chest Computed Tomogra phy 06/02/2023 1:55 PM PARTY CHIEF Impressions 06/02/2023 2:10 PM PARTY CHIEF IMPRESSION: 1. Follow-up CT of the chest in 6 months would be of benefit. Multiple pulmonary nodules in both lung apices as detailed above.. 2. No infiltrate or effusion. Mild atelectasis versus scar in the lung bases. 3. Small pericardial effusion. If indicated, follow-up with echocardiogram. Ordered By: COCO MUÑIZ Interpreted By: Kory Rae, 06/02/2023 1:55 PM Narrative 06/02/2023 2:10 PM PARTY CHIEF EXAMINATION: CT CHEST WITHOUT CONTRAST EXAM DATE/TIME: [...] change in thoracic spine with multiple old cdfa-do-kagtdtxb compression deformities. Intrathecal electrodes noted. Procedure Note [...] degenerative change in thoracic spine with multiple irdowmq-kx-aqyzoeko compression deformities. Intrathecal electrodes noted. IMPRESSION: 1. Follow-up CT of the chest in 6 months would be of benefit. Multiplepulmonary nodules in both lung apices as detailed above.. 2. No infiltrate or effusion. Mild atelectasis versus scar in the lungbases. 3. Small pericardial effusion. If indicated, follow-up withechocardiogram. Ordered By: COCO MUÑIZ Interpreted By: Kory Rae, 06/02/2023 1:55 PM Coco Muñiz [facility]- CT Final Re sult documented in this encounter Visit Diagnoses Diagnosis Multiple pulmonary nodules- Primary Other nonspecific abnormal finding of lung field documented in this encounter Additional Health Concerns Infection Onset Date Last Indicated Resolved Time COVID-19 Rule Out 06/27/2024 06/27/2024 06/27/2024 2:39 PM PARTY CHIEF Respiratory Rule Out 07/14/2024 07/14/2024 025 12:08 AM PARTY CHIEF Respiratory Rule Out 07/26/2024 07/26/2024 025 9:16 PM CDT Tuberculosis Rule-Out 07/29/2024 07/29/20242024 6:47 AM CDT documented as of this encounter Care Teams Agricultural Labor Camp Manager Relationship Specialty Start Date End Date Coco Muñiz, [facility] [address], [address] [place] [address] PCP - General Nurse Practitioner Family 01/27/23 11/25/24 [place] [address] [address], [address] [place] [address] CARDIOVASCULAR DISEASE 06/04/23 Gabriele Doshi MD [address] [facility] [address] [place] [address] Referring Physician NEPHROLOGY 06/04/23 Lynn Vanegas, RN [address] [place] [address] Front Desk (Ambulatory) REGISTERED NURSE 07/15/24 09/15/24 documented as of this encounter
--- OUTSIDE RECORDS SUMMARY | 2024-10-31 16:56 | XMS_ITS | Encounter Summary ---
Author Organization [facility] Address [facility] [place] [address] Care Team Providers Care Industrial Green Systems Designer Name Role Phone Lisset Luis [facility] Primary Care Provider + Raymond Brunson MD Unavailable Unavail able Gabriele Doshi MD Unavailable [phone] Lynn Vanegas RN Unavailable [phone] Encounter Details Date Type Department Care Team (Late st Contact Info) Description 10/13/2023 MyCCarlypsot Message Enc [facility] Medical Group Family & Internal Medicine [facility] [address] [place] [address] Lisset Luis, [address], [address] [place] [address] Physical therapy Social History Tobacco [...] a halfway (including now)? No 02/02/2023 Comments No Sex and Gender Information Value Date Recorded Sex Assigned at Female 06/22/2024 11:23 AM COMPUTER TAPE LIBRARIAN Legal Sex Female 8:19 PM CDT Gender Identity Female 07/22/2024 3:29 PM COMPUTER TAPE LIBRARIAN Sexual Orientation Straight 07/22/2024 3: 29 PM COMPUTER TAPE LIBRARIAN documented as of this encounter Functional Status [...] Description 12/12/2024 11:00 AM CDT Office Visit [facility] Medical Group Family & Internal Medicine [facility] [address] [place] [phone] [place] [address] [place] [address] documented as of this encounter Visit Diagnoses Not on filedocumented in this encounter Additional Health Concerns Infection Onset Date Last Indicated Resolved Time COVID-19 Rule Out 06/27/2024 06/27/2024 06/27/2024 2:39 PM COMPUTER TAPE LIBRARIAN Respiratory Rule Out 07/14/2024 07/14/2024 025 12:08 AM COMPUTER TAPE LIBRARIAN Respiratory Rule Out 07/26/2024 07/26/2024 025 9:16 PM CDT Tuberculosis Rule-Out 07/29/2024 07/29/20242024 6:47 AM CDT documented as of this encounter Care Teams Industrial Green Systems Designer Relationship Specialty Start Date End Date Lisset Luis, [facility]- [address], [address] [place] [address] PCP - General Nurse Practitioner Family 01/27/23 11/25/24 [place] [address] [address], [address] [place] [address] CARDIOVASCULAR DISEASE 06/04/23 Gabriele Doshi MD [address] [place] [address] Referring Physician NEPHROLOGY 06/04/23 Lynn Vanegas, RN [address] [place] [address] Radiology Director (Ambulatory) REGISTERED NURSE 07/15/24 09/15/24 documented as of this encounter
--- OUTSIDE RECORDS SUMMARY | 2024-10-31 16:56 | XMS_ITS | Encounter Summary ---
Author Organization [facility] Address Critical access hospital[address] [place] [address] Care Team Providers Care Eyeglass Lens Grinder Name Role Phone Lisset Luis [facility] Primary Care Provider + Raymond Brunson MD Unavailable Unavail able Gabriele Doshi MD Unavailable [phone] Lynn Vanegas RN Unavailable [phone] Encounter Details Date Type Department Care Team (Late st Contact Info) Description 08/20/2023 TraNet'tet Message Enc [facility] Medical Group Family & Internal Medicine [facility] [id number] [place] [phone] Lisset Luis, [address], [address] [place] [address] Zoloft Social History Tobacco Use [...] Sex Assigned at Female 06/22/2024 11:23 AM CRUSHING FOREMAN Legal Sex Female 8:19 PM CDT Gender Identity Female 07/22/2024 3:29 PM CRUSHING FOREMAN Sexual Orientation Straight 07/22/2024 3: 29 PM CRUSHING FOREMAN documented as of this encounter Functional Status [...] Description 12/12/2024 11:00 AM CDT Office Visit [facility] Medical Group Family & Internal Medicine [facility] [id number] [place] [phone] Christine Pl[place] [address] [place] [address] documented as of this encounter Visit Diagnoses Not on filedocumented in this encounter Additional Health Concerns Infection Onset Date Last Indicated Resolved Time COVID-19 Rule Out 06/27/2024 06/27/2024 06/27/2024 2:39 PM CRUSHING FOREMAN Respiratory Rule Out 07/14/2024 07/14/2024 025 12:08 AM CRUSHING FOREMAN Respiratory Rule Out 07/26/2024 07/26/2024 025 9:16 PM CDT Tuberculosis Rule-Out 07/29/2024 07/29/20242024 6:47 AM CDT documented as of this encounter Care Teams Eyeglass Lens Grinder Relationship Specialty Start Date End Date Lisset Luis, [facility]- [address], [address] [place] [address] PCP - General Nurse Practitioner Family 01/27/23 11/25/24 [place] [address], [address] [place] [address] CARDIOVASCULAR DISEASE 06/04/23 Gabriele Doshi MD [address] [place] [address] Referring Physician NEPHROLOGY 06/04/23 Lynn Vanegas, RN [address] [place] [address] French Weaver (Ambulatory) REGISTERED NURSE 07/15/24 09/15/24 documented as of this encounter
--- OUTSIDE RECORDS SUMMARY | 2024-10-31 16:56 | XMS_ITS | Patient Health Record ---
Author Organization [facility] Josette valle Billing Info Address [address] [place] [address] Care Team Providers Care Crook Operator Name Role Phone CHAPITO CALDERA DO Primary Care Provider Unavailabl e Allergies Allergen (clinical drug ingredient) Drug/Non Drug Allergy documented on EMR Reaction Allergy Type Onset Date Status amoxicillin, Penicillin (uncoded) Unknown Allergy Active morphine, codeine (uncoded) Unknown Allergy Active Reason For Referral No Information Medications Medication SIG (Take, Route, Frequency, Duration) Notes Start Date End Date Status Lasix 40 MG 1 tablet Orally Once a day Active Omeprazole 20 MG 2 capsules Orally On ce a day Active Sertraline HCl 50 MG 1 tablet Orally Onc e a day Active Aspirin 325 MG 1 tablet Orally Once a day Active Hydrocodone-Acetamino phen 10-325 MG 1 tablet as needed Orally every 6 hrs for 30 days Active Nitrostat 0.4 MG Sublingual Ac tive Ozempic (1 MG/DOSE) 4 MG/3ML 1 mg Subcutaneous Once a Week 08/07/2022 Active BD Insulin Syringe U/F 31G X 5/16 0.5 ML USE 5 SYRINGES DAILY DIRECTED Active Lantus 100 UNIT/ML INJECT 70 UNITS UNDE R THE SKIN DAILY DIRECTED for 90 days Active Simvastatin 10 MG 1 tablet in the evening Orally Once a day Active Carvedilol 25 MG 1.5 tab Orally BID 1 1/2 tabs bid Active Humalog 100 UNIT/ML INJECT 15 UNITS UNDE R THE SKIN AT BREAKFAST, 20 UNITS AT LUNCH, AND 25 UNITS AT SUPPER Active Lisinopril 40 MG 1 tablet Orally Once a day Active Clonidine HCl 0.1 MG 1 tablet Orally BID Active FreeStyle Sandhya 2 Summit Systm E11.65 for 90 days 01/09/2022 Active FreeStyle Sandhya 2 Sensor - E11.65 change every 2 weeks 01/09/2022 Active Immunizations Vaccine Route Administration Date Status Comme nts FLU (Past vaccine of unknown type) Unknown 02/05/2021 Administered zCOVID-19 (Moderna Booster) 18+yrs, NO PRES Unknown 02/05/2021 Administered zCOVID-19 (Moderna) 12+yrs, NO PRES Unknown 07/17/2020 Administered zCOVID-19 (Moderna) 12+yrs, NO PRES Unknown 08/13/2020 Administered zZOSTER (ZOSTAVAX) sub Q 12/03/2011 Administered [facility] [id number] Social History Tobacco Use: Social History Observation Description Date Details (start date - stop date) Never Smoker NA - NA Tobacco Status: Question Answer Notes Patient is a never smoker Problems Problem Type SNOMED Code ICD Code Onset Dates Problem Status W/U Status Risk Notes Problem 93123571 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 Problem 50721580 Type 2 diabetes mellitus with diabetic neuropathy, unspecified (E11.40) Active confirmed Problem 18109156 Type 2 diabetes mellitus with hyperglycemia (E11.65) Active confirmed Problem 61477485 Mixed hyperlipidemia (E78.2) Active confirmed Problem 43914886 Essential (prima ry) hypertension (I10) Active confirmed Problem 443995936 Hyperlipidemia (E78.5) Active confirmed Problem 964308948 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) Active confirmed Problem Chronic pain disorder (G89.4) Active confirmed Problem 863835553 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) Active confirmed Plan Of Treatment Pending Test Test Name Order Date Hemoglobin A1c ([id number]) 04/02/2021 Hemoglobin A1c ([id number]) 08/18/2018 CBC (INCLUDES DIFF/PLT) (Q-6399) 016 ALBUMIN, RANDOM URINE W/CREATININE (Q-65 17) 12/04/2015 LIPID PANEL, STANDARD (Q-7600) 6 Comprehensive Metabolic Panel(Q-24973) 0 12/04/2015 TSH (Q-899) 12/04/2015 Insurance Providers Payer Name Payer Address Payer Phone Subscriber Number Group Number Insured Name Patient Relationship to Insured Coverage Start Date Coverage End Date [id number] PPO OOS [address] [place], [place] [id number] Ceci Villarreal Self - patient is the insured 6 2 Medical (General) History Medical History History ICD Code 2013 CHF HTN DM II for 34 yrs 2008 Warba Palsy 2012 CVA 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
--- OUTSIDE RECORDS SUMMARY | 2024-10-31 16:56 | XMS_ITS | Encounter Summary ---
Author Organization [facility] Address [facility] [place] [address] Care Team Providers Care Oil And Gas Specialist Name Role Phone Lisset Luis [facility] Primary Care Provider + Raymond Brunson MD Unavailable Unavail able Gabriele Doshi MD Unavailable [phone] Lynn Vanegas RN Unavailable [phone] Encounter Details Date Type Department Care Team (Late st Contact Info) Description 07/21/2024 LINYWORKSt Message Enc [facility] Medical Group Family & Internal Medicine [facility] [address] [place] [phone] Lisset Luis, [address], [address] [place] [address] hospital bed/early discharge Social History Tobacco Use Types Packs/Day Years Used Date Smoking Tobacco: Never Smokeless Tobacco: Never Alcohol Use Standard Drinks/Week Comments Not Currently 0 (1 standard drink = 0.6 oz pur e alcohol) B1300 Health Literacy Answer Date Recor ded How often do you need to hav e someone help you when you read instructions, pamphlets, or other written material from your doctor or pharmacy? Never 07/22/2024 [facility] Utilities Answer Date Recorded In the past 12 months has e electric, gas, oil, or water company threatened to shut off services in your home? No 07/22/2024 Humiliation, Afraid, Rape, and Kick questionnair e Answer Date Recorded Within the last year, have y ou been afraid of your partner or ex-partner? No 07/22/2024 Within the last year, have y ou been humiliated or emotionally abused in other ways by your partner or ex-partner? No Within the last year, have y ou been kicked, hit, slapped, or otherwise physically hurt by your partner or ex-partner? No 07/22/2024 Within the last year, have y ou been raped or forced to have any kind of sexual activity by your partner or ex-partner? No 07/22/2024 Social Connection and Isolat ion Panel [NHANES] Answer Date Recorded In a typical week, how many times do you talk on the phone with family, friends, or neighbors? More than three times a week 07/22/2024 How often do you get togethe r with friends or relatives? More than three times a week 07/22/2024 How often do you attend chur ch or yazdanism services? 1 to 4 times per year 07/22/2024 Do you belong to any clubs o r organizations such as baptist groups, unions, fraternal or athletic groups, or [...] care, and heating? Not hard at all 07/22/2024 PHQ-2 Answer Date Recorded Patient Health Questionnaire-2 Score 2 07/22/2024 [facility] - Occupational Stress Questionnaire Answer Date Recorded [...] the money to buy more. Never true 07/23/19 25 Within the past 12 months, t he food you bought just didn't last and you didn't have money to get more. Never true 07/22/2024 [facility] - Transportation Answer Date Re corded In the past 12 months, has l ack of transportation kept you from medical appointments or from getting medications? No 11/2024 In the past 12 months, has l ack of transportation kept you from meetings, work, or from getting things needed for daily living? No 07/22/2024 Housing Stability Vital Sign Answer Alex e [...] to sleep or slept in a senior living (including now)? No 02/02/2023 Housing Stability Vital Sign Answer Alex e Recorded In the last 12 months, was t here a time when you were not able to pay the mortgage or rent on time? No 07/22/2024 In the past 12 months, how m any times have you moved where you were living? 0 07/22/2024 At any time in the past 12 [facility], were you homeless or living in a senior living (including now)? No 07/22/2024 Comments No Sex and Gender Information Value Date Recorded Sex Assigned at Female 06/22/2024 11:23 AM TOOL DESIGN DRAFTER Legal Sex Female 8:19 PM CDT Gender Identity Female 07/22/2024 3:29 PM TOOL DESIGN DRAFTER Sexual Orientation Straight 07/22/2024 3: 29 PM TOOL DESIGN DRAFTER documented as of this encounter Functional Status * Question Answer Date of Assessment Author Status Do you have serious difficulty walking or climbing stairs? No 07/22/2024 3:43 PM TOOL DESIGN DRAFTER Julissa Fernandez, Nurse Horse Farm Manager II Active * Question Answer Date of Assessment Author Status Do you have difficulty dressing or bathing? No 07/22/2024 3:43 PM Jenelle Polk, Nurse Horse Farm Manager II Active Because of a physical, mental, or emotional condition, do you have difficulty doing errands alone such as visiting a doctor's office or shopping? No 07/22/2024 3:43 PM Julissa Polk, Nurse Horse Farm Manager II Active * Audit-C Score Answer Date of Assessment Author Status 1 07/22/2024 3:18 PM Nilda Lobato RN Active * Question Answer Date of Assessment Author Status Q1: How often do you have a drink containing alcohol? Monthly or less 07/22/2024 3:18 PM Nilda Lobato RN Active Q2: How many drinks containing alcohol do you have on a typical day when you are drinking? 1 or 2 07/22/2024 3:18 PM Nilda Lobato RN Active Q3: How often do you have six or more drinks on one occasion? Never 07/22/2024 3:18 PM Nilda Lobato RN Active * Are you deaf or do you have serious difficulty hearing Answer Date of Assessment Author Status Yes 07/17/2024 8:00 AM Lorena Dalton RN Active * Are you blind or do you have serious difficulty seeing, even when wearing glasses? Answer Date of Assessment Author Status No 07/17/2024 8:00 AM Lorena Dalton RN Active * Do you have serious difficulty walking or climbing stairs? Answer Date of Assessment Author Status Yes 07/17/2024 8:00 AM Lorena Dalton RN Active * Do you have difficulty dressing or bathing? Answer Date of Assessment Author Status No 07/17/2024 8:00 AM Lorena Dalton RN Active * Because of a physical, mental, or emotional condition, do you have difficulty doing errands alone such as visiting a doctor's office or shopping? Answer Date of Assessment Author Status Yes 07/17/2024 8:00 AM Lorena Dalton RN Active * Question Answer Date of Assessment Author Status Are you deaf or do you have serious difficulty hearing No 07/22/2024 3:43 PM Julissa Polk, Nurse Horse Farm Manager II Active Are you blind or do you have serious difficulty seeing, even when wearing glasses? No 07/22/2024 3:43 PM Julissa Polk, Nurse Horse Farm Manager II Active * Over the past 2 weeks, how often have you been bothered by any of the following problems? Question Answer Date of Assessment Author Status Little interest or pleasure in doing things Several days 07/22/2024 3:22 PM Nilda Lobato RN Active Feeling down, depressed, or hopeless Several days 07/22/2024 3:22 PM Marialuisa Lobato RN Active Patient Health Questionnaire-2 Score 2 07/22/2024 3:22 PM Nilda Lobato RN Active * Calculated C-SSRS Risk Score (Lifetime/Recent) Answer Date of Assessment Author Status No Risk Indicated 07/22/2024 3:48 PM Samina Polk Nurse Horse Farm Manager II Active * If you checked off any problems on this questionnaire so far, Question Answer Date of Assessment Author Status How difficult have these problems made it for you to do your work, take care of things at home, or get along with other people? Somewhat difficult 07/22/2024 3:22 PM Julissa Polk, Nurse Horse Farm Manager II Active * [place] Suicide Severity Rating Scale (Screener/Recent Self-Report) Question Answer Date of Assessment Author Status 1. Wish to be (Past 1 Month) No 07/22/2024 3:48 PM Julissa Polk, Nurse Horse Farm Manager II Active 2. Non-Specific Active Suicidal Thoughts (Past 1 Month) No 07/22/2024 3:48 PM TOOL DESIGN DRAFTER Julissa Fernandez, Nurse Horse Farm Manager II Active 6. Suicidal Behavior (Lifetime) No 07/22/2024 3:48 PM TOOL DESIGN DRAFTER Julissa Fernandez, Nurse Horse Farm Manager II Active documented as of this encounter Mental Status * Question Answer Entry Date Author Status Because of a physical, mental, or emotional condition, do you have serious difficulty concentrating, remembering, or making decisions? No 07/22/2024 3:43 PM TOOL DESIGN DRAFTER Julissa Fernandez, Nurse Horse Farm Manager II Active * Because of a physical, mental, or emotional condition, do you have serious difficulty concentrating, remembering, or making decisions? Answer Entry Date Author Status No 07/17/2024 8:00 AM TOOL DESIGN DRAFTER Lorena Rios RN Active documented in this encounter Progress Notes * JENI Haynes - 07/22/2024 8:29 AM CST She would need to have a [id number] visit to prescribe the hospital bed. Is there any opening next week to fit her in? Or if she can see another provider. DESIGN DRAFTER * Lakeshia Rogers MA - 07/22/2024 7:48 AM CST Please advise, thank you DESIGN DRAFTER documented in this encounter Plan of Treatment Upcoming Encounters Date Type Department Care Team (Late st Contact Info) Description 12/12/2024 11:00 AM CDT Office Visit [facility] Medical Group Family & Internal Medicine - [place] [address] [place] [address] [place] [address] [facility] [address]. [place] [address] documented as of this encounter Visit Diagnoses Not on filedocumented in this encounter Additional Health Concerns Infection Onset Date Last Indicated Resolved Time Respiratory Rule Out 07/26/2024 07/26/2024 025 9:16 PM CDT Tuberculosis Rule-Out 07/29/2024 07/29/20242024 6:47 AM CDT documented as of this encounter Care Teams Oil And Gas Specialist Relationship Specialty Start Date End Date Lisset Luis, SPORTS PHYSICAL THERAPIST- [address], [address] [place] [address] PCP - General Nurse Practitioner Family 01/27/23 11/25/24 [place] [address], [address] [place] [address] CARDIOVASCULAR DISEASE 06/04/23 Gabriele Doshi MD [address] [place] [address] Referring Physician NEPHROLOGY 06/04/23 Lynn Vanegas, RN [address] [place] [address] Fundraising Assistant (Ambulatory) REGISTERED NURSE 07/15/24 09/15/24 documented as of this encounter
--- OUTSIDE RECORDS SUMMARY | 2024-10-31 16:56 | XMS_ITS | Encounter Summary ---
Author Organization [facility] Address [facility] [place] [address] Care Team Providers Care Risk Management Specialist Name Role Phone Lisset Luis [facility] Primary Care Provider + Raymond Brunson MD Unavailable Unavail able Gabriele Doshi MD Unavailable [phone] Lynn Vanegas RN Unavailable [phone] Encounter Details Date Type Department Care Team (Late st Contact Info) Description 10/29/2023 MyCJust around Ust Message Enc [facility] Medical Group Family & Internal Medicine [facility] [address] [place] [phone] Lisset Luis, [address], [address] [place] [address] [facility] neurology referral Social History Tobacco Use Types [...] Sex Assigned at Female 06/22/2024 11:23 AM PLANT ENGINEERING SUPERVISOR Legal Sex Female 8:19 PM CDT Gender Identity Female 07/22/2024 3:29 PM PLANT ENGINEERING SUPERVISOR Sexual Orientation Straight 07/22/2024 3: 29 PM PLANT ENGINEERING SUPERVISOR documented as of this encounter Functional Status [...] Description 12/12/2024 11:00 AM CDT Office Visit [facility] Medical Group Family & Internal Medicine [facility] [address] [place] [phone] Cr[place]ine [place] [id number] [place] [address] [place] [address] documented as of this encounter Visit Diagnoses Not on filedocumented in this encounter Additional Health Concerns Infection Onset Date Last Indicated Resolved Time COVID-19 Rule Out 06/27/2024 06/27/2024 06/27/2024 2:39 PM PLANT ENGINEERING SUPERVISOR Respiratory Rule Out 07/14/2024 07/14/2024 025 12:08 AM PLANT ENGINEERING SUPERVISOR Respiratory Rule Out 07/26/2024 07/26/2024 025 9:16 PM CDT Tuberculosis Rule-Out 07/29/2024 07/29/20242024 6:47 AM CDT documented as of this encounter Care Teams Risk Management Specialist Relationship Specialty Start Date End Date Lisset Luis, LICENSED NUCLEAR OPERATOR- [address], [address] [place] [address] PCP - General Nurse Practitioner Family 01/27/23 11/25/24 [place] [address], [address] [place] [address] CARDIOVASCULAR DISEASE 06/04/23 Gabriele Doshi MD [address] [place] [address] Referring Physician NEPHROLOGY 06/04/23 Lynn Vanegas, RN [address] [place] [address] Lead Ramp Agent (Ambulatory) REGISTERED NURSE 07/15/24 09/15/24 documented as of this encounter
--- OUTSIDE RECORDS SUMMARY | 2024-10-31 16:56 | XMS_ITS | Encounter Summary ---
Author Organization [facility] Address [facility] [place] [address] Care Team Providers Care Talent Development Manager Name Role Phone Lisset Luis [facility] Primary Care Provider + Raymond Brunson MD Unavailable Unavail able Gabriele Doshi MD Unavailable [phone] Lynn Vanegas RN Unavailable [phone] Reason for Referral * Surgical (Urgent) - Closed Specialty Diagnoses / Procedures Referred By Contac t Referred To Contact VASCULAR SURGERY Diagnoses Cerebrovascular accident (CVA) due to embolism of left anterior cerebral artery ([facility]) Subclavian artery stenosis Procedures OFFICE/OUTPATIENT NEW LOW MDM 30-44 MINUTES OFFICE/OUTPT VISIT,NEW,LEVL IV OFFICE/OUTPT VISIT,NEW,LEVL V OFFICE/OUTPT VISIT,EST,LEVL III OFFICE/OUTPT VISIT,EST,LEVL IV OFFICE/OUTPT VISIT,EST,LEVL V [facility] [address] [address], [address] [place] [address] Phone: tel: [place]: [place] [address] [place] [address] Phone: tel: fax: Referral ID Status Reason Start Date Expiration Date V isits Requested Visits Authorized [id number] Closed Specialty Services 06/10/2023 07/09/2024 1 1 EN PRINTING LOADER UNLOADER * Consultation/Treatment (Routine) - Closed Specialty Diagnoses / Procedures Referred By Zenaida t Referred To Contact PAIN MANAGEMENT Diagnoses Cerebrovascular accident (CVA) due to embolism of left anterior cerebral artery ([facility]) DDD (degenerative disc disease), 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, sciatica laterality unspecified Chronic midline low back pain without sciatica Procedures OFFICE/OUTPATIENT NEW LOW MDM 30-44 MINUTES OFFICE/OUTPT VISIT,NEW,LEVL IV OFFICE/OUTPT VISIT,NEW,LEVL V OFFICE/OUTPT VISIT,EST,LEVL III OFFICE/OUTPT VISIT,EST,LEVL IV OFFICE/OUTPT VISIT,EST,LEVL V Lisset Luis FNP-BC [id number] [place] [address], [address] [address] Phone: tel: fax: Davis Villareal MD [address] [place] [address] Phone: tel: fax: Referral ID Status Reason Start Date Expiration Date V isits Requested Visits Authorized [id number] Closed Specialty Services 06/10/2023 06/10/2024 99 99 Scheduling Instructions Requests [place] office. EN PRINTING LOADER UNLOADER Encounter Details Date Type Department Care Team (Late st Contact Info) Description 06/08/2023 MyChart Message Enc [facility] Medical Group Family & Internal Medicine [address] [address] Lisset Luis FNP-BC [address] [facility], [address] [place] [address] Referrals Social History Tobacco Use Types [...] Sex Assigned at Female 06/22/2024 11:23 AM SCREEN PRINTING LOADER UNLOADER Legal Sex Female 8:19 PM CDT Gender Identity Female 07/22/2024 3:29 PM SCREEN PRINTING LOADER UNLOADER Sexual Orientation Straight 07/22/2024 3: 29 PM SCREEN PRINTING LOADER UNLOADER documented as of this encounter Functional Status [...] 4:09 PM CST Referrals have been entered. EN PRINTING LOADER UNLOADER * JENI Haynes - 06/10/2023 3:33 PM CST Okay for pain management referral to Dr. Villareal [facility] for lumbar spinal stenosis and chronic lower back pain. Imaging should be up to date for pain management. Dr. Doshi, Nephrology, should be able toorder any imaging he would like through [facility]. EN PRINTING LOADER UNLOADER * Jackie Hall RN - 06/10/2023 10:57 AM CST Order for walker has been faxed to [facility] EN PRINTING LOADER UNLOADER * Jackie Hall RN - 06/10/2023 10:51 AM CST Ok for referrals?? EN PRINTING LOADER UNLOADER documented in this encounter Plan of Treatment Upcoming Encounters Date Type Department Care Team (Late st Contact Info) Description 12/12/2024 11:00 AM CDT Office Visit [facility] Family & Internal Medicine [address] [address] Christine Pl[place]encia [place] [id number] [place] [address] Scheduled Referrals Name Type Priority Associated Diagnoses Orde r Schedule Ambulatory Referral to Pain Management Referral Routine Cerebrovascular accident (CVA) due to embolism of left anterior cerebral artery DDD (degenerative disc disease), 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, sciatica laterality unspecified Chronic midline low back pain without sciatica Ordered: 06/10/2023 Ambulatory referral to Vascular Surgery (OTHER) Referral MINI Cerebrovascular accident (CVA) due to embolism of left anterior cerebral artery Subclavian artery stenosis Ordered: 06/10/2023 documented as of this encounter Visit Diagnoses Diagnosis Cerebrovascular accident (CVA) due to embolism of left anterior cerebral artery ([facility])- Primary DDD (degenerative disc disease), lumbar Degeneration of lumbar or lumbosacral intervertebral disc 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, sciatica laterality unspecified Subclavian artery stenosis Stricture of artery documented in this encounter Additional Health Concerns Infection Onset Date Last Indicated Resolved Time COVID-19 Rule Out 06/27/2024 06/27/2024 06/27/2024 2:39 PM SCREEN PRINTING LOADER UNLOADER Respiratory Rule Out 07/14/2024 07/14/2024 025 12:08 AM SCREEN PRINTING LOADER UNLOADER Respiratory Rule Out 07/26/2024 07/26/2024 025 9:16 PM CDT Tuberculosis Rule-Out 07/29/2024 07/29/20242024 6:47 AM CDT documented as of this encounter Care Teams Talent Development Manager Relationship Specialty Start Date End Date Lisset Luis, MODEL MAKER SCALE- [address], [address] [place] [address] PCP - General Nurse Practitioner Family 01/27/23 11/25/24 [place] [address], [address] [place] [address] CARDIOVASCULAR DISEASE 06/04/23 Gabriele Doshi MD [address] [facility] [address] [place] [address] Referring Physician NEPHROLOGY 06/04/23 Lynn Vanegas RN [address] [place] [address] Telecommunications Project Manager (Ambulatory) REGISTERED NURSE 07/15/24 09/15/24 documented as of this encounter
--- OUTSIDE RECORDS SUMMARY | 2024-10-31 16:56 | XMS_ITS | Encounter Summary ---
Author Organization [facility] Address [facility] [place] [address] Care Team Providers Care Museum Informatics Specialist Name Role Phone Lisset Luis [facility] Primary Care Provider + Raymond Brunson MD Unavailable Unavail able Gabriele Doshi MD Unavailable [phone] Lynn Vanegas RN Unavailable [phone] Encounter Details Date Type Department Care Team (Late st Contact Info) Description 08/04/2024 Repligent Message Enc [facility] Medical Group Family & Internal Medicine [facility] [id number] [place] [address] Lisset Luis, [address], [address] [place] [address] hospital bed Social History Tobacco Use Types Packs/Day Years [...] from your doctor or pharmacy? Never 07/22/2024 [facility] Utilities Answer Date Recorded In the past 12 months has th e electric, gas, oil, or water company [...] often do you attend chur ch or gnosticism services? 1 to 4 times per year 07/22/2024 Do you belong to any clubs o r organizations such as scientology groups, unions, fraternal or athletic groups, or [...] Recorded Patient Health Questionnaire-2 Score 2 07/22/2024 [facility] - Occupational Stress Questionnaire Answer Date Recorded [...] place to sleep or slept in a long term (including now)? No 02/02/2023 Housing Stability Vital [...] time in the past 12 m [facility], were you homeless or living in a long term (including now)? No 07/28/2024 Comments No Sex and Gender Information Value Date Recorded Sex Assigned at Female 06/22/2024 11:23 AM INVESTMENT SPECIALIST Legal Sex Female 8:19 PM CDT Gender Identity Female 07/22/2024 3:29 PM INVESTMENT SPECIALIST Sexual Orientation Straight 07/22/2024 3: 29 PM INVESTMENT SPECIALIST documented as of this encounter Functional Status * Are you deaf or do you have serious difficulty hearing Answer Date of Assessment Author Status Yes 08/03/2024 3:00 PM CDT Arianne Rosario RN Active * Are you blind or [...] Assessment Author Status No 08/03/2024 3:00 PM MARILYNT Arianne Rosario RN Active * Because of a physical, [...] encounter Progress Notes * JENI Haynes - 08/05/2024 3:44 PM CDT I think it may be worth trying to get hospital bed covered if she is falling out of bed. We do needto have a face to face visit in order to try to get it covered. documented in this encounter Plan of Treatment Upcoming Encounters Date Type Department Care Team (Late st Contact Info) Description 12/12/2024 11:00 AM CDT Office Visit [facility] Medical Group Family & Internal Medicine - [place] [address] [place] [address] Christine Plasencia, COATING MACHINE OPERATOR [address] [facility] [address] [place] [address] documented as of this encounter Visit Diagnoses Not on filedocumented in this encounter Care Teams Museum Informatics Specialist Relationship Specialty Start Date End Date Lisset Luis, CONTRACTS ANALYST- [address] [facility], [address] [place] [address] PCP - General Nurse Practitioner Family 01/27/23 11/25/24 [place] [address] [facility], [address] [place] [address] CARDIOVASCULAR DISEASE 06/04/23 Gabriele Doshi MD [address] [facility] [address] [place] [address] Referring Physician NEPHROLOGY 06/04/23 Lynn Vanegas, RN [address] [place] [address] Power Originator (Ambulatory) REGISTERED NURSE 07/15/24 09/15/24 documented as of this encounter
--- OUTSIDE RECORDS SUMMARY | 2024-10-31 16:56 | XMS_ITS | Encounter Summary ---
Author Organization [facility] Address [facility] [place] [address] Care Team Providers Care Tax Staff Accountant Name Role Phone Lisset Luis [facility] Primary Care Provider + Raymond Brunosn MD Unavailable Unavail able Gabriele Doshi MD Unavailable [phone] Lynn Vanegas RN Unavailable [phone] Encounter Details Date Type Department Care Team (Late st Contact Info) Description 06/04/2023 Mendixt Message Enc [facility] Medical Group Family & Internal Medicine [address] [address] Lisset Luis, [address], [address] [place] [address] Doppler Social History Tobacco Use [...] place to sleep or slept in a group home (including now)? No 02/02/2023 Comments No Sex and Gender Information Value Date Recorded Sex Assigned at Female 06/22/2024 11:23 AM TOP FRAME MAKER Legal Sex Female 8:19 PM CDT Gender Identity Female 07/22/2024 3:29 PM TOP FRAME MAKER Sexual Orientation Straight 07/22/2024 3: 29 PM TOP FRAME MAKER documented as of this encounter Functional Status [...] Description 12/12/2024 11:00 AM CDT Office Visit [facility] Medical Group Family & Internal Medicine [facility] [id number] [place] [address] Christine Plasencia NP [address] [place] [address] documented as of this encounter Visit Diagnoses Not on filedocumented in this encounter Additional Health Concerns Infection Onset Date Last Indicated Resolved Time COVID-19 Rule Out 06/27/2024 06/27/2024 06/27/2024 2:39 PM TOP FRAME MAKER Respiratory Rule Out 07/14/2024 07/14/2024 025 12:08 AM TOP FRAME MAKER Respiratory Rule Out 07/26/2024 07/26/2024 025 9:16 PM CDT Tuberculosis Rule-Out 07/29/2024 07/29/20242024 6:47 AM CDT documented as of this encounter Care Teams Tax Staff Accountant Relationship Specialty Start Date End Date Lisset Luis, [facility]- [address], [address] [place] [address] PCP - General Nurse Practitioner Family 01/27/23 11/25/24 [place] [address], [address] [place] [address] CARDIOVASCULAR DISEASE 06/04/23 Gabriele Doshi MD [address] [facility] [address] [place] [address] Referring Physician NEPHROLOGY 06/04/23 Lynn Vanegas, RN [address] [place] [address] Store Sales Manager (Ambulatory) REGISTERED NURSE 07/15/24 09/15/24 documented as of this encounter
--- OUTSIDE RECORDS SUMMARY | 2024-10-31 16:56 | XMS_ITS | Encounter Summary ---
Author Organization [facility] Address [facility] [place] [address] Care Team Providers Care Rehab Rn Name Role Phone Lisset Luis [facility] Primary Care Provider + Raymond Brunson MD Unavailable Unavail able Gabriele Doshi MD Unavailable [phone] Lynn Vanegas RN Unavailable [phone] Encounter Details Date Type Department Care Team (Late st Contact Info) Description 05/20/2024 MyCPhoenix Energy Technologiest Message Enc [facility] Family & Internal Medicine [facility] [address] [place] [address] Lisset Luis, [address], [address] [place] [address] update on my mother Social [...] Sex Assigned at Female 06/22/2024 11:23 AM CHECKER Legal Sex Female 8:19 PM CDT Gender Identity Female 07/22/2024 3:29 PM CHECKER Sexual Orientation Straight 07/22/2024 3: 29 PM CHECKER documented as of this encounter Functional Status [...] Author Status Yes 02/02/2023 6:35 PM CDT Aanhy Vanegas R N Active documented as of this encounter Mental Status * Because of a physical, mental, or emotional condition, do you have serious difficulty concentrating, remembering, or making decisions? Answer Entry Date Author Status No 02/02/2023 6:35 PM CDAnahy Campbell R N Active documented in this encounter Progress Notes * Lisset Luis, THIRD RAIL INSTALLER-BC - 05/23/2024 10:43 AM CST These are [...] would recommend sending her readings to her computer meteorologist. Unfortunately, if she is not taking her [...] to take medications or see specialist providers. KER * Jackie Hall RN - 05/20/2024 3:34 PM CST Please review blood glucose numbers. KER * Jackie Hall RN - 05/20/2024 11:43 AM CST Please review and advise KER documented in this encounter Plan of Treatment Upcoming Encounters Date Type Department Care Team (Late st Contact Info) Description 12/12/2024 11:00 AM CDT Office Visit [facility] Medical Group Family & Internal Medicine [address] [address] [place] [address] [facility] [address] [place] [address] documented as of this encounter Visit Diagnoses Not on filedocumented in this encounter Additional Health Concerns Infection Onset Date Last Indicated Resolved Time COVID-19 Rule Out 06/27/2024 06/27/2024 06/27/2024 2:39 PM CHECKER Respiratory Rule Out 07/14/2024 07/14/2024 025 12:08 AM CHECKER Respiratory Rule Out 07/26/2024 07/26/2024 025 9:16 PM CDT Tuberculosis Rule-Out 07/29/2024 07/29/20242024 6:47 AM CDT documented as of this encounter Care Teams Rehab Rn Relationship Specialty Start Date End Date Lisset Luis FNP-BC [address], [address] [place] [address] PCP - General Nurse Practitioner Family 01/27/23 11/25/24 [place] [address], [address] [place] [address] CARDIOVASCULAR DISEASE 06/04/23 Gabriele Doshi MD [address] [facility] [address] [place] [address] Referring Physician NEPHROLOGY 06/04/23 Lynn Vanegas, RN [address] [place] [address] Molding Process Technician (Ambulatory) REGISTERED NURSE 07/15/24 09/15/24 documented as of this encounter
--- OUTSIDE RECORDS SUMMARY | 2024-10-31 16:56 | XMS_ITS | Encounter Summary ---
Author Organization [facility] Address [facility] [place] [address] Care Team Providers Care Tailor'S Aide Name Role Phone Lisset Luis [facility] Primary Care Provider + Raymond Brunson MD Unavailable Unavail able Gabriele Doshi MD Unavailable [phone] Lynn Vanegas RN Unavailable [phone] Encounter Details Date Type Department Care Team (Late st Contact Info) Description 02/04/2023 MyChart Message Enc [facility] Medical Group Family & Internal Medicine [facility] [phone] [place] [address] Lisset Luis, [address], [address] [place] [address] Follow up appt Social History [...] a senior living (including now)? No 02/02/2023 Comments Unknown Sex and Gender Information Value Date Recorded Sex Assigned at Female 06/22/2024 11:23 AM NAIL PROFESSIONAL Legal Sex Female 8:19 PM CDT Gender Identity Female 07/22/2024 3:29 PM NAIL PROFESSIONAL Sexual Orientation Straight 07/22/2024 3: 29 PM NAIL PROFESSIONAL documented as of this encounter Functional Status [...] Description 12/12/2024 11:00 AM CDT Office Visit [facility] Medical Group Family & Internal Medicine [facility] [address] [place] [address] [place] [address] [facility] [address] [place] [address] documented as of this encounter Visit Diagnoses Not on filedocumented in this encounter Additional Health Concerns Infection Onset Date Last Indicated Resolved Time COVID-19 Rule Out 06/27/2024 06/27/2024 06/27/2024 2:39 PM NAIL PROFESSIONAL Respiratory Rule Out 07/14/2024 07/14/2024 025 12:08 AM NAIL PROFESSIONAL Respiratory Rule Out 07/26/2024 07/26/2024 025 9:16 PM CDT Tuberculosis Rule-Out 07/29/2024 07/29/20242024 6:47 AM CDT documented as of this encounter Care Teams Tailor'S Aide Relationship Specialty Start Date End Date Lisset Luis, HEALTH INFORMATION CLERK- [address], [address] [place] [address] PCP - General Nurse Practitioner Family 01/27/23 11/25/24 [place] [address], [address] [place] [address] CARDIOVASCULAR DISEASE 06/04/23 Gabriele Doshi MD [address] [place] [address] Referring Physician NEPHROLOGY 06/04/23 Lynn Vanegas, RN [address] [place] [address] Grey Iron Molder (Ambulatory) REGISTERED NURSE 07/15/24 09/15/24 documented as of this encounter
--- OUTSIDE RECORDS SUMMARY | 2024-10-31 16:56 | XMS_ITS | Encounter Summary ---
Author Organization [facility] Address [facility] [place] [address] Care Team Providers Care Pattern Carrier Name Role Phone Lisset Luis [facility] Primary Care Provider + Raymond Brunson MD Unavailable Unavail able Gabriele Doshi MD Unavailable [phone] Lynn Vanegas RN Unavailable [phone] Encounter Details Date Type Department Care Team (Late st Contact Info) Description 03/19/2023 MyCCapsule Techt Message Enc [facility] Medical Group Family & Internal Medicine [address] [address] Lisset Luis, [address], [address] [place] [address] rosuvastatin Social History Tobacco Use [...] Sex Assigned at Female 06/22/2024 11:23 AM CHANNEL MARKETING PROGRAM MANAGER Legal Sex Female 8:19 PM CDT Gender Identity Female 07/22/2024 3:29 PM CHANNEL MARKETING PROGRAM MANAGER Sexual Orientation Straight 07/22/2024 3: 29 PM CHANNEL MARKETING PROGRAM MANAGER documented as of this encounter Functional Status [...] would be (10 mg or 20 mg) NEL MARKETING PROGRAM MANAGER * Savanah Baird RN - 03/27/2023 10:27 AM CST Sent doc halo to referral dept about changing referral to Page. NEL MARKETING PROGRAM MANAGER * Jackie Hall RN - 03/20/2023 9:10 AM CDT Please advise. documented in this encounter Plan of Treatment Upcoming Encounters Date Type Department Care Team (Late st Contact Info) Description 12/12/2024 11:00 AM CDT Office Visit [facility] Medical Group Family & Internal Medicine [facility] [address] [place] [address] [place] [address] [facility] [address] [place] [address] documented as of this encounter Visit Diagnoses Not on filedocumented in this encounter Additional Health Concerns Infection Onset Date Last Indicated Resolved Time COVID-19 Rule Out 06/27/2024 06/27/2024 06/27/2024 2:39 PM CHANNEL MARKETING PROGRAM MANAGER Respiratory Rule Out 07/14/2024 07/14/2024 025 12:08 AM CHANNEL MARKETING PROGRAM MANAGER Respiratory Rule Out 07/26/2024 07/26/2024 025 9:16 PM CDT Tuberculosis Rule-Out 07/29/2024 07/29/20242024 6:47 AM CDT documented as of this encounter Care Teams Pattern Carrier Relationship Specialty Start Date End Date Lisset Luis, [facility]- [address] [facility] [address], [address] [place] [address] PCP - General Nurse Practitioner Family 01/27/23 11/25/24 [place] [address] [facility], [address] [place] [address] CARDIOVASCULAR DISEASE 06/04/23 Gabriele Doshi MD [address] [address] [address] [place] [address] Referring Physician NEPHROLOGY 06/04/23 Lynn Vanegas RN [address] [place] [address] Swedger (Ambulatory) REGISTERED NURSE 07/15/24 09/15/24 documented as of this encounter
--- OUTSIDE RECORDS SUMMARY | 2024-10-31 16:56 | XMS_ITS | Encounter Summary ---
Author Organization [facility] Address [facility] [place] [address] Care Team Providers Care Bakery Decorator Name Role Phone Lisset Luis [facility] Primary Care Provider + Raymond Brunson MD Unavailable Unavail able Gabriele Doshi MD Unavailable [phone] Lynn Vanegas RN Unavailable [phone] Encounter Details Date Type Department Care Team (Late st Contact Info) Description 07/03/2023 Card Capture Servicest Message Enc [facility] Medical Group Family & Internal Medicine [facility] [id number] [place] [phone] Lisest Luis, [address], [address] [place] [address] Meds Social History Tobacco Use [...] Sex Assigned at Female 06/22/2024 11:23 AM FOAM FABRICATOR Legal Sex Female 8:19 PM CDT Gender Identity Female 07/22/2024 3:29 PM FOAM FABRICATOR Sexual Orientation Straight 07/22/2024 3: 29 PM FOAM FABRICATOR documented as of this encounter Functional Status [...] Haynes - 07/14/2023 10:07 AM CST Noted. FABRICATOR * Brooke Aldridge NP - 07/14/2023 9:58 AM CST fygertrudis FABRICATOR * JENI Haynes - 07/06/2023 10:42 AM CST Our records indicate she should be taking all the listed medications. Reviewing her cardiology notefrom the last visit, they wanted her to continue clonidine, spironolactone, and furosemide. Labetalol was not commented on, however, if they did not specifically tell her to stop this, she should continue it. I would recommend confirming with the car rental manager's office if there is concern. Please have her schedule an appointment with me. I know she has been sick with COVID19 and has had several specialist appt with medication changes recently. FABRICATOR * Jackie Hall RN - 07/06/2023 10:21 AM CST Please advise. Last seen by you in 02/2023-no upcoming appt. FABRICATOR documented in this encounter Plan of Treatment Upcoming Encounters Date Type Department Care Team (Late st Contact Info) Description 12/12/2024 11:00 AM CDT Office Visit [facility] Medical Group Family & Internal Medicine [facility] [address] [place] [address] [place] [address] [facility] [address] [place] [address] documented as of this encounter Visit Diagnoses Not on filedocumented in this encounter Additional Health Concerns Infection Onset Date Last Indicated Resolved Time COVID-19 Rule Out 06/27/2024 06/27/2024 06/27/2024 2:39 PM FOAM FABRICATOR Respiratory Rule Out 07/14/2024 07/14/2024 025 12:08 AM FOAM FABRICATOR Respiratory Rule Out 07/26/2024 07/26/2024 025 9:16 PM CDT Tuberculosis Rule-Out 07/29/2024 07/29/20242024 6:47 AM CDT documented as of this encounter Care Teams Bakery Decorator Relationship Specialty Start Date End Date Lisset Luis FNP-BC [address] [facility], [address] [place] [address] PCP - General Nurse Practitioner Family 01/27/23 11/25/24 [place] [address] [facility], [address] [place] [address] CARDIOVASCULAR DISEASE 06/04/23 Gabriele Doshi MD [address] [facility] [address] [place] [address] Referring Physician NEPHROLOGY 06/04/23 Lynn Vanegas, RN [address] [place] [address] Underwriting Operations Manager (Ambulatory) REGISTERED NURSE 07/15/24 09/15/24 documented as of this encounter
--- OUTSIDE RECORDS SUMMARY | 2024-10-31 16:56 | XMS_ITS | Encounter Summary ---
Author Organization [facility] Address [facility] [place] [address] Care Team Providers Care Fine Grade Operator Name Role Phone Lisset Luis [facility] Primary Care Provider + Raymond Brunson MD Unavailable Unavail able Gabriele Doshi MD Unavailable [phone] Lynn Vanegas RN Unavailable [phone] Encounter Details Date Type Department Care Team (Late st Contact Info) Description 05/06/2023 [employer]t Message Enc [facility] Medical Group Family & Internal Medicine [facility] [address] [place] [address] Lisset Luis, [address], [address] [place] [address] Pain Social History Tobacco Use [...] Sex Assigned at Female 06/22/2024 11:23 AM PATHOLOGY LABORATORY AIDE Legal Sex Female 8:19 PM CDT Gender Identity Female 07/22/2024 3:29 PM PATHOLOGY LABORATORY AIDE Sexual Orientation Straight 07/22/2024 3: 29 PM PATHOLOGY LABORATORY AIDE documented as of this encounter Functional Status [...] RN - 05/07/2023 3:42 PM CST noted OLOGY LABORATORY AIDE documented in this encounter Plan of Treatment Upcoming Encounters Date Type Department Care Team (Late st Contact Info) Description 12/12/2024 11:00 AM CDT Office Visit [facility] Medical Group Family & Internal Medicine [facility] [address] [place] [address] [place] [address] [facility] [address] [place] [address] documented as of this encounter Visit Diagnoses Not on filedocumented in this encounter Additional Health Concerns Infection Onset Date Last Indicated Resolved Time COVID-19 Rule Out 06/27/2024 06/27/2024 06/27/2024 2:39 PM PATHOLOGY LABORATORY AIDE Respiratory Rule Out 07/14/2024 07/14/2024 025 12:08 AM PATHOLOGY LABORATORY AIDE Respiratory Rule Out 07/26/2024 07/26/2024 025 9:16 PM CDT Tuberculosis Rule-Out 07/29/2024 07/29/20242024 6:47 AM CDT documented as of this encounter Care Teams Fine Grade Operator Relationship Specialty Start Date End Date Lisset Luis, PATENT PROSECUTION ATTORNEY- [address], [address] [place] [address] PCP - General Nurse Practitioner Family 01/27/23 11/25/24 [place] [address], [address] [place] [address] CARDIOVASCULAR DISEASE 06/04/23 Gabriele Doshi MD [address] [place] [address] Referring Physician NEPHROLOGY 06/04/23 Lynn Vanegas, RN [address] [place] [address] Club Waiter/Waitress (Ambulatory) REGISTERED NURSE 07/15/24 09/15/24 documented as of this encounter
--- OUTSIDE RECORDS SUMMARY | 2024-10-31 17:00 | XMS_ITS | Encounter Summary ---
Author Organization [facility] Address [facility] [place] [address] Care Team Providers Care Cooker Mechanic Name Role Phone Lisset Luis [facility] Primary Care Provider + Raymond Brunson MD Unavailable Unavail able Gabriele Doshi MD Unavailable [phone] Lynn Vanegas RN Unavailable [phone] Encounter Details Date Type Department Care Team (Late st Contact Info) Description 01/05/2024 MyCVI Systemst Message Enc [facility] Medical Group Family & Internal Medicine [facility] [id number] [place] [address] Lisset Luis, [address], [address] [place] [address] Blood glucose monitor Social History [...] Sex Assigned at Female 06/22/2024 11:23 AM NURSING DEPARTMENT CHAIRPERSON Legal Sex Female 8:19 PM CDT Gender Identity Female 07/22/2024 3:29 PM NURSING DEPARTMENT CHAIRPERSON Sexual Orientation Straight 07/22/2024 3: 29 PM NURSING DEPARTMENT CHAIRPERSON documented as of this encounter Functional Status [...] EAST Medical Group Family & Internal Medicine [facility] [id number] [place] [phone] [place] [phone] [place] [address] documented as of this encounter Visit Diagnoses Not on filedocumented in this encounter Additional Health Concerns Infection Onset Date Last Indicated Resolved Time COVID-19 Rule Out 06/27/2024 06/27/2024 06/27/2024 2:39 PM NURSING DEPARTMENT CHAIRPERSON Respiratory Rule Out 07/14/2024 07/14/2024 025 12:08 AM NURSING DEPARTMENT CHAIRPERSON Respiratory Rule Out 07/26/2024 07/26/2024 025 9:16 PM CDT Tuberculosis Rule-Out 07/29/2024 07/29/20242024 6:47 AM CDT documented as of this encounter Care Teams Cooker Mechanic Relationship Specialty Start Date End Date Lisset Luis, [facility]- [address], [address] [place] [address] PCP - General Nurse Practitioner Family 01/27/23 11/25/24 [place] [address], [address] [place] [address] CARDIOVASCULAR DISEASE 06/04/23 Gabriele Doshi MD [address] [place] [address] Referring Physician NEPHROLOGY 06/04/23 Lynn Vanegas, RN [address] [place] [address] Cement Loader (Ambulatory) REGISTERED NURSE 07/15/24 09/15/24 documented as of this encounter
--- OUTSIDE RECORDS SUMMARY | 2024-10-31 17:00 | XMS_ITS | Encounter Summary ---
Author Organization [facility] Address [facility] [place] [address] Care Team Providers Care Arterial Embalmer Name Role Phone Lisset Luis [facility] Primary Care Provider + Raymond Brunson MD Unavailable Unavail able Gabriele Doshi MD Unavailable [phone] Lynn Vanegas RN Unavailable [phone] Encounter Details Date Type Department Care Team (Late st Contact Info) Description 06/24/2024 MyCLocationt Message Enc [facility] Medical Group Family & Internal Medicine [facility] [address] [place] [address] Lisset Luis, [address], [address] [place] [address] my mom Social History Tobacco Use Types Packs/Day Years Used Date Smoking Tobacco: Never Smokeless Tobacco: Never Alcohol Use Standard Drinks/Week Comments Not Currently 0 (1 standard drink = 0.6 oz pur e alcohol) [facility] Utilities Answer Date Recorded In the past 12 months has [employer] electric, gas, oil, or water company threatened to shut off services in your home? No 06/23/2024 Humiliation, Afraid, Rape, and Kick questionnair e Answer Date Recorded Within the last year, have y ou been afraid of your partner or ex-partner? No 06/23/2024 Within the last year, have y ou been humiliated or emotionally abused in other ways by your partner or ex-partner? No Within the last year, have y ou been kicked, hit, slapped, or otherwise physically hurt by your partner or ex-partner? No 06/23/2024 Within the last year, have y ou been raped or forced to have any kind of sexual activity by your partner or ex-partner? No 06/23/2024 Overall Financial Resource Strain (CARDIA) Answe r Date Recorded How hard is it for you to pa y for the very basics like food, housing, medical care, and heating? Not hard at all 06/23/2024 PHQ-2 Answer Date Recorded Patient Health Questionnaire-2 Score 0 07/22/2023 Hunger Vital Sign Answer Date Recorded Within the past 12 months, y ou worried that your food would run out before you got the money to buy more. Never true 06/23/19 25 Within the past 12 months, t he food you bought just didn't last and you didn't have money to get more. Never true 06/23/2024 PRAPARE - Transportation Answer Date Re corded In the past 12 months, has l ack of transportation kept you from medical appointments or from getting medications? No 10/2024 In the past 12 months, has l ack of transportation kept you from meetings, work, or from getting things needed for daily living? No 06/23/2024 Housing Stability Vital Sign Answer Alex e [...] in a half-way (including now)? No 02/02/2023 Housing Stability Vital Sign Answer Alex e Recorded In the last 12 months, was t here a time when you were not able to pay the mortgage or rent on time? No 06/23/2024 In the past 12 months, how m any times have you moved where you were living? 0 06/23/2024 At any time in the past 12 m [facility], were you homeless or living in a half-way (including now)? No 06/23/2024 Comments No Sex and Gender Information Value Date Recorded Sex Assigned at Female 06/22/2024 11:23 AM ACCOUNT SERVICES REPRESENTATIVE Legal Sex Female 8:19 PM CDT Gender Identity Female 07/22/2024 3:29 PM ACCOUNT SERVICES REPRESENTATIVE Sexual Orientation Straight 07/22/2024 3: 29 PM ACCOUNT SERVICES REPRESENTATIVE documented as of this encounter Functional Status * Are you deaf or do you have serious difficulty hearing Answer Date of Assessment Author Status No 06/23/2024 1:03 AM Ebony Park RN Active * Are you blind or do you have serious difficulty seeing, even when wearing glasses? Answer Date of Assessment Author Status No 06/23/2024 1:03 AM Ebony Park RN Active * Do you have serious difficulty walking or climbing stairs? Answer Date of Assessment Author Status Yes 06/23/2024 1:03 AM Ebony Park RN Active * Do you have difficulty dressing or bathing? Answer Date of Assessment Author Status Yes 06/23/2024 1:03 AM Ebony Park RN Active * Because of a physical, mental, or emotional condition, do you have difficulty doing errands alone such as visiting a doctor's office or shopping? Answer Date of Assessment Author Status Yes 06/23/2024 1:03 AM Ebony Park RN Active documented as of this encounter Mental Status * Because of a physical, mental, or emotional condition, do you have serious difficulty concentrating, remembering, or making decisions? Answer Entry Date Author Status Yes 06/23/2024 1:03 AM Ebony Park RN Active documented in this encounter Plan of Treatment Upcoming Encounters Date Type Department Care Team (Late st Contact Info) Description 12/12/2024 11:00 AM CDT Office Visit [facility] Medical Group Family & Internal Medicine [address] [address] Christine Plasencia, ONLINE MARKETING MANAGER [address] [place] [address] documented as of this encounter Visit Diagnoses Not on filedocumented in this encounter Additional Health Concerns Infection Onset Date Last Indicated Resolved Time COVID-19 Rule Out 06/27/2024 06/27/2024 06/27/2024 2:39 PM ACCOUNT SERVICES REPRESENTATIVE Respiratory Rule Out 07/14/2024 07/14/2024 025 12:08 AM ACCOUNT SERVICES REPRESENTATIVE Respiratory Rule Out 07/26/2024 07/26/2024 025 9:16 PM CDT Tuberculosis Rule-Out 07/29/2024 07/29/20242024 6:47 AM CDT documented as of this encounter Care Teams Arterial Embalmer Relationship Specialty Start Date End Date Lisset Luis, [facility]- [address], [address] [place] [address] PCP - General Nurse Practitioner Family 01/27/23 11/25/24 [place] [address], [address] [place] [address] CARDIOVASCULAR DISEASE 06/04/23 Gabriele Doshi MD [address] [place] [address] Referring Physician NEPHROLOGY 06/04/23 Lynn Vanegas, RN [address] [place] [address] Regulatory Associate (Ambulatory) REGISTERED NURSE 07/15/24 09/15/24 documented as of this encounter
--- OUTSIDE RECORDS SUMMARY | 2024-10-31 17:00 | XMS_ITS | Encounter Summary ---
Author Organization [facility] Address [facility] [place] [address] Care Team Providers Care Group Fitness Manager Name Role Phone Lisset Luis [facility] Primary Care Provider + Raymond Brunson MD Unavailable Unavail able Gabriele Doshi MD Unavailable [phone] Lynn Vanegas RN Unavailable [phone] Encounter Details Date Type Department Care Team (Late st Contact Info) Description 12/25/2023 MyCSnappyTVt Message Enc [facility] Medical Group Family & Internal Medicine [facility] [address] [place] [address] Lisset Luis, [address], [address] [place] [address] urine culture Social History Tobacco [...] place to sleep or slept in a jail (including now)? No 02/02/2023 Comments No Sex and Gender Information Value Date Recorded Sex Assigned at Female 06/22/2024 11:23 AM MANAGER SPECIAL EVENTS Legal Sex Female 8:19 PM CDT Gender Identity Female 07/22/2024 3:29 PM MANAGER SPECIAL EVENTS Sexual Orientation Straight 07/22/2024 3: 29 PM MANAGER SPECIAL EVENTS documented as of this encounter Functional Status [...] Description 12/12/2024 11:00 AM CDT Office Visit [facility] Medical Group Family & Internal Medicine - [place] [address] [place] [address] [place] [address] [facility] [address] [facility] [place] [address] documented as of this encounter Visit Diagnoses Not on filedocumented in this encounter Additional Health Concerns Infection Onset Date Last Indicated Resolved Time COVID-19 Rule Out 06/27/2024 06/27/2024 06/27/2024 2:39 PM MANAGER SPECIAL EVENTS Respiratory Rule Out 07/14/2024 07/14/2024 025 12:08 AM MANAGER SPECIAL EVENTS Respiratory Rule Out 07/26/2024 07/26/2024 025 9:16 PM CDT Tuberculosis Rule-Out 07/29/2024 07/29/20242024 6:47 AM CDT documented as of this encounter Care Teams Group Fitness Manager Relationship Specialty Start Date End Date Lisset Luis FNP-BC [address] [facility], [address] [address] PCP - General Nurse Practitioner Family 01/27/23 11/25/24 [place] [address] [facility], [address] [address] CARDIOVASCULAR DISEASE 06/04/23 Gabriele Doshi MD [address] [place], [place] [address] Referring Physician NEPHROLOGY 06/04/23 Lynn Vanegas RN [address] [place] [address] Personnel Research Scientist (Ambulatory) REGISTERED NURSE 07/15/24 09/15/24 documented as of this encounter
[2024-10-31 18:28] LABS: Glucose Point of Care 380 mg/dl (65-105)
== END 2024-10-31 16:25 | disposition short-term general hospital (02) ==
PROVIDERS: PCP Nurse Practitioner Family
DX: E11.65 Type 2 diabetes mellitus with hyperglycemia (principal); Z79.4 Long term (current) use of insulin; R53.1 Weakness; E11.22 Type 2 diabetes mellitus with diabetic chronic kidney disease; N18.4 Chronic kidney disease, stage 4 (severe); E78.00 Pure hypercholesterolemia, unspecified; M10.9 Gout, unspecified; Z96.82 Presence of neurostimulator
CPT/HCPCS: 82948; 99212; G0463

== ENCOUNTER 2024-10-31 16:52 | Inpatient (IN) | payer MEDICARE, BC, SELFPAY ==
--- NOTE | ~2024-10-31 | XR_ITS ---
CHEST RADIOGRAPH CLINICAL HISTORY: weakness . COMPARISON: 03/11/2014 TECHNIQUE: Single portable view of the chest. FINDINGS The cardiomediastinal silhouette is enlarged, unchanged. Dorsal column stimulator device is now noted. The lungs are clear. IMPRESSION: No focal infiltrate or effusion. Reviewed, dictated and finalized at location A.
[2024-10-31 16:57] VITALS: BP 133/56; PULSE 70; RESP 18; TEMP 36.6; O2SAT 100
[2024-10-31 17:03] LABS: Glucose Point of Care 302 mg/dl (65-105)
--- OUTSIDE RECORDS SUMMARY | 2024-10-31 18:18 | XMS_ITS | Encounter Summary ---
Author Organization [facility] Address [facility] [place] [address] Care Team Providers Care Fruit Thinner Name Role Phone Lisset Luis [facility] Primary Care Provider + Raymond Brunson MD Unavailable Unavail able Gabriele Doshi MD Unavailable [phone] Lynn Vanegas RN Unavailable [phone] Encounter Details Date Type Department Care Team (Late st Contact Info) Description 09/11/2024 MyC[employer] Infrastructuret Message Enc [facility] Medical Group Family & Internal Medicine [address] [address] Lisset Luis, [address], [address] [place] [address] Glucose readings Social History Tobacco [...] from your doctor or pharmacy? Never 07/22/2024 [employer] Utilities Answer Date Recorded In the past 12 months has th e [employer], oil, or water [employer] threatened to shut off services in your [...] often do you attend chur ch or yarsanism services? 1 to 4 times per year 07/22/2024 Do you belong to any clubs o r organizations such as shinto groups, unions, fraternal or athletic groups, or [...] Recorded Patient Health Questionnaire-2 Score 2 07/22/2024 [facility] - [...] in a detention (including now)? No 02/02/2023 Housing Stability Vital Sign Answer Alex e Recorded In the last 12 months, was t here a time when you were not able to pay the mortgage or rent on time? No 07/28/2024 In the past 12 months, how m any times have you moved where you were living? 0 07/28/2024 At any time in the past 12 m [facility], were you homeless or living in a detention (including now)? No 07/28/2024 Comments No Sex and Gender Information Value Date Recorded Sex Assigned at Female 06/22/2024 11:23 AM ENTRY LEVEL WEB DEVELOPER Legal Sex Female 8:19 PM CDT Gender Identity Female 07/22/2024 3:29 PM ENTRY LEVEL WEB DEVELOPER Sexual Orientation Straight 07/22/2024 3: 29 PM ENTRY LEVEL WEB DEVELOPER documented as of this encounter Functional Status [...] this encounter Progress Notes * Lisset Luis, INFORMATION SERVICES VICE PRESIDENTDEEP - 09/12/2024 1:44 PM CDT Reviewed with patient and daughter in office. See documentation for recommendations. * Jackie Hall RN - 09/12/2024 9:10 AM CDT Please advise. documented in this encounter Plan of Treatment Upcoming Encounters Date Type Department Care Team (Late st Contact Info) Description 12/12/2024 11:00 AM CDT Office Visit [facility] Medical Group Family & Internal Medicine - [place] [phone] [place] [phone] [place] [address] [facility] [address] [facility] [place] [address] documented as of this encounter Visit Diagnoses Not on filedocumented in this encounter Care Teams Fruit Thinner Relationship Specialty Start Date End Date Lisset Luis FNP- [address] [facility], [address] [place] [address] PCP - General Nurse Practitioner Family 01/27/23 11/25/24 [place] [address] [facility], [address] [place] [address] CARDIOVASCULAR DISEASE 06/04/23 aGbriele Doshi MD [address] [facility] [address] [place] [address] Referring Physician NEPHROLOGY 06/04/23 Lynn Vanegas RN [address] [place] [address] Supervisor Wood Room (Ambulatory) REGISTERED NURSE 07/15/24 09/15/24 documented as of this encounter
--- OUTSIDE RECORDS SUMMARY | 2024-10-31 18:18 | XMS_ITS | Encounter Summary ---
Author Organization [facility] Address [facility] [place] [address] Care Team Providers Care Flour Distributor Name Role Phone Lisset Luis [facility] Primary Care Provider + Raymond Brunson MD Unavailable Unavail able Gabriele Doshi MD Unavailable [phone] Lynn Vanegas RN Unavailable [phone] Encounter Details Date Type Department Care Team (Latest Contact Info) Description 09/13/2024 Results Follow-Up [facility] Medical Group Family & Internal Medicine [address] [address] Lisset Luis [address], [address] [place] [address] CBC W/DIFF AUTOMATED, COMPREHENSIVE METABOLIC PANEL, HEMOGLOBIN, [...] from your doctor or pharmacy? Never 07/22/2024 [facility] Utilities Answer Date Recorded In the past 12 months has e [employer], gas, oil, or water [employer] threatened to shut off services in your [...] often do you attend chur ch or denominational services? 1 to 4 times per year 07/22/2024 Do you belong to any clubs o r organizations such as rastafarian groups, unions, fraternal or athletic groups, or [...] Recorded Patient Health Questionnaire-2 Score 2 07/22/2024 [facility] Occupat ional Health - Occupational [...] place to sleep or slept in a penitentiary (including now)? No 02/02/2023 Housing Stability Vital Sign Answer Alex e Recorded In the last 12 months, was t here a time when you were not able to pay the mortgage or rent on time? No 07/28/2024 In the past 12 months, how m any times have you moved where you were living? 0 07/28/2024 At any time in the past 12 m [facility], were you homeless or living in a penitentiary (including now)? No 07/28/2024 Comments No Sex and Gender Information Value Date Recorded Sex Assigned at Female 06/22/2024 11:23 AM FURNACE ROOM SUPERVISOR Legal Sex Female 8:19 PM CDT Gender Identity Female 07/22/2024 3:29 PM FURNACE ROOM SUPERVISOR Sexual Orientation Straight 07/22/2024 3: 29 PM FURNACE ROOM SUPERVISOR documented as of this encounter Functional [...] Description 12/12/2024 11:00 AM CDT Office Visit [facility] Medical Group Family & Internal Medicine - [place] [address] [place] [phone] Christine Plasencia, WAITER/WAITRESS [address] [facility] [address] [place] [address] documented as of this encounter Visit Diagnoses Not on filedocumented in this encounter Care Teams Flour Distributor Relationship Specialty Start Date End Date Lisset Luis, CELL ATTENDANT HELPER- [address] [facility], [address] [address] PCP - General Nurse Practitioner Family 01/27/23 11/25/24 [place] [address] [facility], [address] [address] CARDIOVASCULAR DISEASE 06/04/23 Gabriele Doshi MD [address] [facility] [address] [place] [address] Referring Physician NEPHROLOGY 06/04/23 Lynn Vanegas, RN [address] [place] [address] Transportation Operations Manager (Ambulatory) REGISTERED NURSE 07/15/24 09/15/24 documented as of this encounter
--- OUTSIDE RECORDS SUMMARY | 2024-10-31 18:18 | XMS_ITS | Encounter Summary ---
Author Organization [facility] Address [facility] [place] [address] Care Team Providers Care Fire Truck Driver Name Role Phone Lisset Luis [facility] Primary Care Provider + Raymond Brunson MD Unavailable Unavail able Gabriele Doshi MD Unavailable [phone] Lynn Vanegas RN Unavailable [phone] Encounter Details Date Type Department Care Team (Late st Contact Info) Description 01/13/2024 iPinYout Message Enc [facility] [place] [address] [id number] Shannan Gordon MD Three [facility] [address] [place], [place] [id number] Medical card Social History Tobacco Use Types [...] Sex Assigned at Female 06/22/2024 11:23 AM REGISTRATION MANAGER Legal Sex Female 8:19 PM CDT Gender Identity Female 07/22/2024 3:29 PM REGISTRATION MANAGER Sexual Orientation Straight 07/22/2024 3: 29 PM REGISTRATION MANAGER documented as of this encounter Functional [...] Author Status Yes 02/02/2023 6:35 PM CDT Anayh Vanegas R N Active documented as of [...] Description 12/12/2024 11:00 AM CDT Office Visit [facility] Medical Group Family & Internal Medicine [facility] [address] [place] [address] [place] [id number] [place] [address] [facility] [place] [address] documented as of this encounter Visit Diagnoses Not on filedocumented in this encounter Additional Health Concerns Infection Onset Date Last Indicated Resolved Time COVID-19 Rule Out 06/27/2024 06/27/2024 06/27/2024 2:39 PM REGISTRATION MANAGER Respiratory Rule Out 07/14/2024 07/14/2024 025 12:08 AM REGISTRATION MANAGER Respiratory Rule Out 07/26/2024 07/26/2024 025 9:16 PM CDT Tuberculosis Rule-Out 07/29/2024 07/29/20242024 6:47 AM CDT documented as of this encounter Care Teams Fire Truck Driver Relationship Specialty Start Date End Date TobyLisset, [facility]- [address] [place] [address] PCP - General Nurse Practitioner Family 01/27/23 11/25/24 [place] [address], [address] [place] [address] CARDIOVASCULAR DISEASE 06/04/23 Gabriele Doshi MD [address] [place] [address] Referring Physician NEPHROLOGY 06/04/23 Lynn Vanegas, RN [address] [place] [address] Global Safety Officer (Ambulatory) REGISTERED NURSE 07/15/24 09/15/24 documented as of this encounter
--- OUTSIDE RECORDS SUMMARY | 2024-10-31 18:18 | XMS_ITS | Encounter Summary ---
Author Organization [facility] Healthcare Address [address] [place] [address] Care Team Providers Care Antenna Installer Name Role Phone Lisset Luis NP Primary Care Provider [phone] Shani Power MD Unavailable Gabriele Doshi MD Unavailable [phone] Reason for Visit * Reason Onset Date Comments Med Management 10/31/2024 Encounter Details Date Type Department Care Team (Late st Contact Info) Description 10/31/2024 Telephone [facility] Medical Group Diabetes and Endocrinology [address] [place] [phone] Heaven Francois SUPERVISOR ORCHARD [address] [facility] [address] [place] [address] Med Management Social History Tobacco Use Types [...] on file Legal Sex Female 3:27 AM BILLBOARD ERECTOR Gender Identity Not on file Sexual Orientation [...] that the name of the facility is [facility] in [place], I was unable to find this facility [...] on filedocumented in this encounter Care Teams Antenna Installer Relationship Specialty Start Date End Date Lisset Luis NP PCP - General Family Medicine 04/14/23 [place] [address] [address] Consulting Physician Endocrinology Diabetes & Metabolism 08/12/23 [place] [address] [address] Referring Physician Nephrology 01/25/24 documented as of this encounter
--- OUTSIDE RECORDS SUMMARY | 2024-10-31 18:18 | XMS_ITS | Encounter Summary ---
Author Organization [facility] Address Critical access hospital6 [place] [address] Care Team Providers Care Dental Secretary Name Role Phone Lisset Luis [facility] Primary Care Provider + Raymond Brunson MD Unavailable Unavail able Gabriele Doshi MD Unavailable [phone] Lynn Vanegas RN Unavailable [phone] Encounter Details Date Type Department Care Team (Late st Contact Info) Description 01/13/2024 [employer]t Message Enc [facility] Medical Group Family & Internal Medicine [facility] [address] [place] [address] Lisset Luis, [address], [address] [place] [address] Jardiance Social History Tobacco Use [...] in a residential (including now)? No 02/02/2023 Comments No Sex and Gender Information Value Date Recorded Sex Assigned at Female 06/22/2024 11:23 AM CORPORATE DIRECTOR TALENT ASSESSMENT Legal Sex Female 8:19 PM CDT Gender Identity Female 07/22/2024 3:29 PM CORPORATE DIRECTOR TALENT ASSESSMENT Sexual Orientation Straight 07/22/2024 3: 29 PM CORPORATE DIRECTOR TALENT ASSESSMENT documented as of this encounter Functional Status [...] the office and is recommended by her Well Testing Operator. I would recommend if she plans to [...] Medical Group Family & Internal Medicine [facility] [address] [place] [address] Christine Plasencia SALARY MANAGER [address] [facility] [address], [place] [address] documented as of this encounter Visit Diagnoses Not on filedocumented in this encounter Additional Health Concerns Infection Onset Date Last Indicated Resolved Time COVID-19 Rule Out 06/27/2024 06/27/2024 06/27/2024 2:39 PM CORPORATE DIRECTOR TALENT ASSESSMENT Respiratory Rule Out 07/14/2024 07/14/2024 025 12:08 AM CORPORATE DIRECTOR TALENT ASSESSMENT Respiratory Rule Out 07/26/2024 07/26/2024 025 9:16 PM CDT Tuberculosis Rule-Out 07/29/2024 07/29/20242024 6:47 AM CDT documented as of this encounter Care Teams Dental Secretary Relationship Specialty Start Date End Date Lisset Luis, [facility] [address] [facility] [address] [place] [address] PCP - General Nurse Practitioner Family 01/27/23 11/25/24 [place] [address] [facility] [address] [address] [place] [address] CARDIOVASCULAR DISEASE 06/04/23 Gabriele Doshi MD [address] [facility] [address] [place] [address] Referring Physician NEPHROLOGY 06/04/23 Lynn Vanegas RN [address] [place] [address] Flight Engineer Helicopter (Ambulatory) REGISTERED NURSE 07/15/24 09/15/24 documented as of this encounter
--- OUTSIDE RECORDS SUMMARY | 2024-10-31 18:18 | XMS_ITS | Clinical Summary ---
Author Organization [facility] Address [address] [place] [address] Care Team Providers Care Customer Complaint Service Supervisor Name Role Phone Lisset Luis NP Primary Care Provider [phone] Shani Power MD Unavailable Gabriele Doshi MD Unavailable [phone] Allergies Active Allergy Reactions Criticality Noted Date [...] 2 diabetes mellitus without complication, unspecified whether senior living insulin use (HCC) USE TO INJECT THREE TIMES DAILY DIRECTED 100 each 11 4 Active Active Problems Problem Noted Date Diagnosed Date Essential tremor 03/22/2024 Assessment & Plan (03/22/2024 2:11 PM MANAGER ACQUISITION): Patient presents with 5-years of progressive, bilateral, [...] Simvastatin 10mg. Last lipid panel: 02/27/23 LDL=67, ZU=311. Renal artery stenosis 04/14/2023 CKD stage 3 [...] Type Department Care Team Description 10/31/2024 Telephone [facility] Medical Group Diabetes and Endocrinology [address] [place] [phone] Heaven Francois, SLAB INSTALLER Med Management from Last 3 Months Surgical [...] on file Legal Sex Female 3:27 AM MANAGER ACQUISITION Gender Identity Not on file Sexual Orientation Not on file Obstetrics History Last Filed Vital Signs Vital Sign Reading Time Taken Comments Blood Pressure 177/69 03/22/2024 1:00 PM MANAGER ACQUISITION Pulse 96 03/22/2024 1:00 PM MANAGER ACQUISITION Temperature 36.4 C (97.5 F) 03/22/2024 1:00 PM MANAGER ACQUISITION Respiratory Rate 16 01/25/2024 11:39 AM CDT Oxygen Saturation 97% 12/01/2023 2:39 PM CDT Inhaled Oxygen Concentration - - Weight 76.2 kg (168 lb) 03/22/2024 1:00 PM MANAGER ACQUISITION Height 162.6 cm (5' 4.02) 01/25/2024 11:39 [...] 01/25/2024 11:4 5 AM CDT Heaven Francois SLAB INSTALLER POINT OF CARE TEST ORDERA BLES Final [...] 35 Units/L [facility] SCRIBED eGFR in NonAfrican Kittitian 41 >=60 - NA [facility] Blood 02/27/2023 8:44 AM CDT us Historical Provider LAB BLOOD ORDERABLES Edit ed Result - Final [facility] from Last 3 Months or Most Recently Relevant to Health Maintenance Insurance MEDICARE [place] D[facility]de [facility] MEDICARE BLUE ACCESS OOS Care Teams Customer Complaint Service Supervisor Relationship Specialty Start Date End Date Lisset Luis NP PCP - General Family Medicine 04/14/23 [place] [address] [address] [place] [address] Consulting Physician Endocrinology Diabetes & Metabolism 08/12/23 [place] [address] [address] [place] [address] Referring Physician Nephrology 01/25/24
--- OUTSIDE RECORDS SUMMARY | 2024-10-31 18:18 | XMS_ITS | Referral Summary ---
Author Organization [facility] Address [address] [place] [phone] Care Team Providers Care Burn Nurse Name Role Phone Lisset Luis BUSINESS SUPPORT PROFESSIONAL Primary Care Provider [phone] Shani Power MD Unavailable Gabriele Doshi MD Unavailable Encounters Date Type Department Care Team Description 10/31/2024 Telephone [facility] Medical Group Diabetes and Endocrinology [address] [place] [phone] Heaven Francois NP Med Management from [...] 2 diabetes mellitus without complication, unspecified whether adjunct faculty for medical terminology insulin use (HCC) USE TO INJECT THREE TIMES DAILY DIRECTED 100 each 11 4 Active Active Problems Problem Noted Date Diagnosed Date Essential tremor 03/22/2024 Assessment & Plan (03/22/2024 2:11 PM CIVIL LABORATORY TECHNICIAN): Patient presents with 5-years of progressive, [...] Simvastatin 10mg. Last lipid panel: 02/27/23 LDL=67, TA=168. Renal artery stenosis 04/14/2023 CKD stage 3 [...] on file Legal Sex Female 3:27 AM CIVIL LABORATORY TECHNICIAN Gender Identity Not on file Sexual Orientation Not on file Last Filed Vital Signs Vital Sign Reading Time Taken Comments Blood Pressure 177/69 03/22/2024 1:00 PM CIVIL LABORATORY TECHNICIAN Pulse 96 03/22/2024 1:00 PM CIVIL LABORATORY TECHNICIAN Temperature 36.4 C (97.5 F) 03/22/2024 1:00 PM CIVIL LABORATORY TECHNICIAN Respiratory Rate 16 01/25/2024 11:39 AM CDT Oxygen Saturation 97% 12/01/2023 2:39 PM CDT Inhaled Oxygen Concentration - - Weight 76.2 kg (168 lb) 03/22/2024 1:00 PM CIVIL LABORATORY TECHNICIAN Height 162.6 cm (5' 4.02) 01/25/2024 11:39 [...] 01/25/2024 11:4 5 AM CDT Heaven Francois BUSINESS SUPPORT PROFESSIONAL POINT OF CARE TEST ORDERA BLES Final Result * Albumin Creatinine Ratio, Urine (03/11/2023 12:31 PM CDT) Pathologist [facility] SCRIBED Creatinine, Urine 54 20 - 275 [facility] SCRIBED Microalbumin 0.9 NA - NA [facility] SCRIBED Microalb/Creat Ratio 17 <30 - NA [facility] Urine 03/11/2023 12:3 1 PM CDT Historical Provider MD LAB URINE ORDERABLES Edit ed Result - Final Performing Organization Address City/[facility]/ZIP Co de Phone Number [facility] * (ABNORMAL) Lipid panel (02/27/2023 8:44 AM CDT) Pathologist [facility] SCRIBED Cholesterol, Total 153 <200 - NA [...] 35 Units/L [facility] SCRIBED eGFR in NonAfrican [place] Islander 41 >=60 - NA [facility] Blood 02/27/2023 8:44 AM CDT Historical Provider LAB BLOOD ORDERABLES Edit ed Result - Final [facility] from Last 3 Months or Most Recently Relevant to Health Maintenance Insurance MEDICARE [place] [facility] MEDICARE [employer] OOS Care Teams Burn Nurse Relationship Specialty Start Date End Date Lisset Luis NP PCP - General Family Medicine 04/14/23 [place] [address] [facility] [address] [place] [address] Consulting Physician Endocrinology Diabetes & Metabolism 08/12/23 [place] [address] [facility] [address] [address] Referring Physician Nephrology 01/25/24
--- OUTSIDE RECORDS SUMMARY | 2024-10-31 18:18 | XMS_ITS | Encounter Summary ---
Author Organization [facility] Address [facility] [place] [address] Care Team Providers Care Duplicator Punch Operator Name Role Phone Lisset Luis [facility] Primary Care Provider + Raymond Brunson MD Unavailable Unavail able Gabriele Doshi MD Unavailable [phone] Lynn Vanegas RN Unavailable [phone] Encounter Details Date Type Department Care Team (Late st Contact Info) Description 09/05/2024 MyCRUNt Message Enc [facility] Medical Group Family & Internal Medicine [facility] [address] [place] [address] Lisset Luis, [address], [address] [place] [address] Blood work Social History Tobacco [...] from your doctor or pharmacy? Never 07/22/2024 [employer] Utilities Answer Date Recorded In the past 12 months has th e [employer], oil, or water Come[employer] threatened to shut off services in your [...] often do you attend chur ch or bahai services? 1 to 4 times per year [...] Patient Health Questionnaire-2 Score 2 07/22/2024 [facility] - Occupational [...] any time in the past 12 m [facility], were you homeless or living in a detention (including now)? No 07/28/2024 Comments No Sex and Gender Information Value Date Recorded Sex Assigned at Female 06/22/2024 11:23 AM RETAIL AND RESTAURANT ASSOCIATE Legal Sex Female 8:19 PM CDT Gender Identity Female 07/22/2024 3:29 PM RETAIL AND RESTAURANT ASSOCIATE Sexual Orientation Straight 07/22/2024 3: 29 PM RETAIL AND RESTAURANT ASSOCIATE documented as of this encounter Functional Status [...] Description 12/12/2024 11:00 AM CDT Office Visit [facility] Medical Group Family & Internal Medicine - [place] [address] [place] [address] Christine Plasencia, BUSINESS UNIT LEADER [address] [address] [facility] [address] [place] [address] documented as of this encounter Visit Diagnoses Not on filedocumented in this encounter Care Teams Duplicator Punch Operator Relationship Specialty Start Date End Date Lisset Luis, SUCTION ROLLER- [address] [facility], [address] [place] [address] PCP - General Nurse Practitioner Family 01/27/23 11/25/24 [place] [address] [facility], [address] [place] [address] CARDIOVASCULAR DISEASE 06/04/23 Gabriele Doshi MD [address] [facility] [address] [place] [address] Referring Physician NEPHROLOGY 06/04/23 Lynn Vanegas, RN [address] [place] [address] Nipple Maker (Ambulatory) REGISTERED NURSE 07/15/24 09/15/24 documented as of this encounter
--- OUTSIDE RECORDS SUMMARY | 2024-10-31 18:19 | XMS_ITS | Encounter Summary ---
Author Organization [facility] Address Critical access hospital6 [place] [address] Care Team Providers Care Hearing Therapy Teacher Name Role Phone Lisset Luis [facility] Primary Care Provider + Raymond Brunson MD Unavailable Unavail able Gabriele Doshi MD Unavailable [phone] Lynn Vanegas RN Unavailable [phone] Encounter Details Date Type Department Care Team (Late st Contact Info) Description 01/05/2024 [employer] Message Enc [facility] Medical Group Family & Internal Medicine [facility] [address] [place] [address] Lisset Luis, [address], [address] [place] [address] Blood glucose monitor Social History [...] Sex Assigned at Female 06/22/2024 11:23 AM WORKERS COMPENSATION CLAIMS SPECIALIST Legal Sex Female 8:19 PM CDT Gender Identity Female 07/22/2024 3:29 PM WORKERS COMPENSATION CLAIMS SPECIALIST Sexual Orientation Straight 07/22/2024 3: 29 PM WORKERS COMPENSATION CLAIMS SPECIALIST documented as of this encounter Functional [...] [facility] Medical [facility] Family & Internal Medicine [facility] [address] [place] [phone] Christine [place] [address] [place] [address] documented as of this encounter Visit Diagnoses Not on filedocumented in this encounter Additional Health Concerns Infection Onset Date Last Indicated Resolved Time COVID-19 Rule Out 06/27/2024 06/27/2024 06/27/2024 2:39 PM WORKERS COMPENSATION CLAIMS SPECIALIST Respiratory Rule Out 07/14/2024 07/14/2024 025 12:08 AM WORKERS COMPENSATION CLAIMS SPECIALIST Respiratory Rule Out 07/26/2024 07/26/2024 025 9:16 PM CDT Tuberculosis Rule-Out 07/29/2024 07/29/20242024 6:47 AM CDT documented as of this encounter Care Teams Hearing Therapy Teacher Relationship Specialty Start Date End Date Lisset Luis, [facility]- [address], [address] [place] [address] PCP - General Nurse Practitioner Family 01/27/23 11/25/24 [place] [address] [address], [address] [place] [address] CARDIOVASCULAR DISEASE 06/04/23 Gabriele Doshi MD [address] [place] [address] Referring Physician NEPHROLOGY 06/04/23 Lynn Vanegas, RN [address] [place] [address] Student Outreach Coordinator (Ambulatory) REGISTERED NURSE 07/15/24 09/15/24 documented as of this encounter
--- OUTSIDE RECORDS SUMMARY | 2024-10-31 18:19 | XMS_ITS | Encounter Summary ---
Author Organization [facility] Address [facility] [place] [address] Care Team Providers Care Fishing Vessel Operator Name Role Phone Lisset Luis [facility] Primary Care Provider + Raymond Brunson MD Unavailable Unavail able Gabriele Doshi MD Unavailable [phone] Lynn Vanegas RN Unavailable [phone] Encounter Details Date Type Department Care Team (Late st Contact Info) Description 07/21/2024 [employer] Message Enc [facility] Medical Group Family & Internal Medicine [facility] [address] [place] [address] Lisset Luis, [address], [address] [place] [address] hospital bed/early discharge Social History [...] from your doctor or pharmacy? Never 07/22/2024 [facility] Utilities Answer Date Recorded In the [...] often do you attend chur ch or scientologist services? 1 to 4 times per year 07/22/2024 Do you belong to any clubs o r organizations such as congregational groups, unions, fraternal or athletic groups, or [...] Recorded Patient Health Questionnaire-2 Score 2 07/22/2024 [facility] - Occupational Stress Questionnaire Answer Date [...] any time in the past 12 m [facility], were you homeless or living in a detention (including now)? No 07/22/2024 Comments No Sex and Gender Information Value Date Recorded Sex Assigned at Female 06/22/2024 11:23 AM BRAINER Legal Sex Female 8:19 PM CDT Gender Identity Female 07/22/2024 3:29 PM BRAINER Sexual Orientation Straight 07/22/2024 3: 29 PM BRAINER documented as of this encounter Functional Status * Question Answer Date of Assessment Author Status Do you have serious difficulty walking or climbing stairs? No 07/22/2024 3:43 PM BRAINER Julissa Fernandez, Nurse Regulatory Compliance Engineer II Active * Question Answer Date of Assessment Author Status Do you have difficulty dressing or bathing? No 07/22/2024 3:43 PM Jenelle Polk, Nurse Regulatory Compliance Engineer II Active Because of a physical, mental, or emotional condition, do you have difficulty doing errands alone such as visiting a doctor's office or shopping? No 07/22/2024 3:43 PM Julissa Polk, Nurse Regulatory Compliance Engineer II Active * Audit-C Score Answer Date [...] No 07/22/2024 3:43 PM Julissa Polk, Nurse Regulatory Compliance Engineer II Active Are you blind or do you have serious difficulty seeing, even when wearing glasses? No 07/22/2024 3:43 PM Julissa Polk, Nurse Regulatory Compliance Engineer II Active * Over the past 2 [...] Indicated 07/22/2024 3:48 PM Samina Polk Nurse Regulatory Compliance Engineer II Active * If you checked off any problems on this questionnaire so far, Question Answer Date of Assessment Author Status How difficult have these problems made it for you to do your work, take care of things at home, or get along with other people? Somewhat difficult 07/22/2024 3:22 PM Julissa Polk, Nurse Regulatory Compliance Engineer II Active * [place] Suicide Severity Rating Scale (Screener/Recent Self-Report) Question Answer Date of Assessment Author Status 1. Wish to be (Past 1 Month) No 07/22/2024 3:48 PM Julissa Polk, Nurse Regulatory Compliance Engineer II Active 2. Non-Specific Active Suicidal Thoughts (Past 1 Month) No 07/22/2024 3:48 PM BRAINER Julissa Fernandez, Nurse Regulatory Compliance Engineer II Active 6. Suicidal Behavior (Lifetime) No 07/22/2024 3:48 PM BRAINER Julissa Fernandez, Nurse Regulatory Compliance Engineer II Active documented as of this encounter Mental Status * Question Answer Entry Date Author Status Because of a physical, mental, or emotional condition, do you have serious difficulty concentrating, remembering, or making decisions? No 07/22/2024 3:43 PM BRAINER Julissa Fernandez, Nurse Regulatory Compliance Engineer II Active * Because of a physical, mental, or emotional condition, do you have serious difficulty concentrating, remembering, or making decisions? Answer Entry Date Author Status No 07/17/2024 8:00 AM BRAINER Lorena Rios RN Active documented in this encounter Progress Notes * JENI Haynes - 07/22/2024 8:29 AM CST She would need to have a zpvz-ef-dkin visit to prescribe the hospital bed. Is there any opening next week to fit her in? Or if she can see another provider. NER * Lakeshia Rogers MA - 07/22/2024 7:48 AM CST Please advise, thank you NER documented in this encounter Plan of Treatment Upcoming Encounters Date Type Department Care Team (Late st Contact Info) Description 12/12/2024 11:00 AM CDT Office Visit [facility] Medical Group Family & Internal Medicine - [place] [address] [place] [address] [place] [address] [facility] [address] [place] [address] documented as of this encounter Visit Diagnoses Not on filedocumented in this encounter Additional Health Concerns Infection Onset Date Last Indicated Resolved Time Respiratory Rule Out 07/26/2024 07/26/2024 025 9:16 PM CDT Tuberculosis Rule-Out 07/29/2024 07/29/20242024 6:47 AM CDT documented as of this encounter Care Teams Fishing Vessel Operator Relationship Specialty Start Date End Date Lisset Luis, ORNAMENTAL METAL ERECTOR APPRENTICE- [address] [place] [address] PCP - General Nurse Practitioner Family 01/27/23 11/25/24 [place] [address] [address], [address] [place] [address] CARDIOVASCULAR DISEASE 06/04/23 Gabriele Doshi MD [address] [place] [address] Referring Physician NEPHROLOGY 06/04/23 Lynn Vanegas, RN [address] [place] [address] Chief Accountant (Ambulatory) REGISTERED NURSE 07/15/24 09/15/24 documented as of this encounter
--- OUTSIDE RECORDS SUMMARY | 2024-10-31 18:19 | XMS_ITS | Encounter Summary ---
Author Organization [facility] Address [facility] [place] [address] Care Team Providers Care Cash Accounting Clerk Name Role Phone Lisset Luis [facility] Primary Care Provider + Raymond Brunson MD Unavailable Unavail able Gabriele Doshi MD Unavailable [phone] Lynn Vanegas RN Unavailable [phone] Encounter Details Date Type Department Care Team (Late st Contact Info) Description 10/29/2023 MyCJust Solest Message Enc [facility] Medical Group Family & Internal Medicine [facility] [id number] [place] [address] Lisset Luis, [address], [address] [place] [address] [facility] neurology referral Social History Tobacco Use [...] Sex Assigned at Female 06/22/2024 11:23 AM BRANCH GENERAL MANAGER Legal Sex Female 8:19 PM CDT Gender Identity Female 07/22/2024 3:29 PM BRANCH GENERAL MANAGER Sexual Orientation Straight 07/22/2024 3: 29 PM BRANCH GENERAL MANAGER documented as of this encounter Functional [...] Description 12/12/2024 11:00 AM CDT Office Visit [facility] Family & Internal Medicine [facility] [id number] [place] [phone] [place] Pl[place] [id number] [place] [address] [place] [address] documented as of this encounter Visit Diagnoses Not on filedocumented in this encounter Additional Health Concerns Infection Onset Date Last Indicated Resolved Time COVID-19 Rule Out 06/27/2024 06/27/2024 06/27/2024 2:39 PM BRANCH GENERAL MANAGER Respiratory Rule Out 07/14/2024 07/14/2024 025 12:08 AM BRANCH GENERAL MANAGER Respiratory Rule Out 07/26/2024 07/26/2024 025 9:16 PM CDT Tuberculosis Rule-Out 07/29/2024 07/29/20242024 6:47 AM CDT documented as of this encounter Care Teams Cash Accounting Clerk Relationship Specialty Start Date End Date Lisset Luis, DRAIN TECHNICIAN- [address], [address] [place] [address] PCP - General Nurse Practitioner Family 01/27/23 11/25/24 [place] [address], [address] [place] [address] CARDIOVASCULAR DISEASE 06/04/23 Gabriele Doshi MD [address] [place] [address] Referring Physician NEPHROLOGY 06/04/23 Lynn Vanegas, RN [address] [place] [address] Mobile Home Mechanic (Ambulatory) REGISTERED NURSE 07/15/24 09/15/24 documented as of this encounter
--- OUTSIDE RECORDS SUMMARY | 2024-10-31 18:19 | XMS_ITS | Encounter Summary ---
Author Organization [facility] Address [facility] [place] [address] Care Team Providers Care Pin Sticker Name Role Phone Coco MuñizP- Primary Care Provider + Raymond Brunson MD Unavailable Unavail able Gabriele Doshi MD Unavailable [phone] Lynn Vanegas RN Unavailable [phone] Reason for Referral * Imaging (Routine) - Closed Specialty Diagnoses / Procedures Referred By Zenaida grady Referred To Contact RADIOLOGY Diagnoses Multiple pulmonary nodules Procedures CT CHEST WO CON Coco Muñiz FNP-BC [address] [facility], [address] [place] [address] Phone: tel: fax: [facility] [address] [facility] [address] [place] [address] Phone: tel: fax: Referral ID Status Reason Start Date Expiration Date Visits Re quested Visits Authorized [id number] Closed 04/23/2023 04/23/2024 1 1 T MANAGER Encounter Details Date Type Department Care Team (Late st Contact Info) Description 04/13/2023 MyChart Message Enc [facility] Medical Group Family & Internal Medicine [facility] [address] [place] [address] Coco Muñiz, [facility] [address] [facility], [address] [place] [address] CT scan Social History Tobacco [...] place to sleep or slept in a fci (including now)? No 02/02/2023 Comments No Sex and Gender Information Value Date Recorded Sex Assigned at Female 06/22/2024 11:23 AM FLEET MANAGER Legal Sex Female 8:19 PM CDT Gender Identity Female 07/22/2024 3:29 PM FLEET MANAGER Sexual Orientation Straight 07/22/2024 3: 29 PM FLEET MANAGER documented as of this encounter Functional [...] Haynes - 04/24/2023 4:24 PM CST Noted T MANAGER * Jackie Hall RN - 04/24/2023 11:[address] report faxed to [facility] Pain Management [phone] Inquiring about the need for a thoracic MRI in addition to the lumbar MRI-which is scheduled on 05/05/2023. Requested a return call. T MANAGER * Jackie Hall RN - 04/23/2023 10:22 [...] og as lumbar spine. Message left at [phone] to return call. T MANAGER documented in this encounter Plan of Treatment Upcoming Encounters Date Type Department Care Team (Late st Contact Info) Description 12/12/2024 11:00 AM CDT Office Visit [facility] Medical Group Family & Internal Medicine [facility] [phone] [place] [phone] [place] [address] [facility] [address] [place] [address] documented as of this encounter Results * CT CHEST WO CON (06/02/2023 1:33 PM FLEET MANAGER) Anatomical Region Laterality Modality Chest Computed Tomogra phy 06/02/2023 1:55 PM FLEET MANAGER Impressions 06/02/2023 2:10 PM FLEET MANAGER IMPRESSION: 1. Follow-up CT of the chest in 6 months would be of benefit. Multiple pulmonary nodules in both lung apices as detailed above.. 2. No infiltrate or effusion. Mild atelectasis versus scar in the lung bases. 3. Small pericardial effusion. If indicated, follow-up with echocardiogram. Ordered By: COCO MUÑIZ Interpreted By: Kory Rae, 06/02/2023 1:55 PM Narrative 06/02/2023 2:10 PM FLEET MANAGER EXAMINATION: CT CHEST WITHOUT CONTRAST EXAM DATE/TIME: [...] change in thoracic spine with multiple old yihy-ce-wqbjjjsx compression deformities. Intrathecal electrodes noted. Procedure Note [...] degenerative change in thoracic spine with multiple pojdqyw-od-zbmqczbs compression deformities. Intrathecal electrodes noted. IMPRESSION: 1. Follow-up CT of the chest in 6 months would be of benefit. Multiplepulmonary nodules in both lung apices as detailed above.. 2. No infiltrate or effusion. Mild atelectasis versus scar in the lungbases. 3. Small pericardial effusion. If indicated, follow-up withechocardiogram. Ordered By: COCO MUÑIZ Interpreted By: Kory Rae, 06/02/2023 1:55 PM Coco Muñiz [facility]- CT Final Re sult documented in this encounter Visit Diagnoses Diagnosis Multiple pulmonary nodules- Primary Other nonspecific abnormal finding of lung field documented in this encounter Additional Health Concerns Infection Onset Date Last Indicated Resolved Time COVID-19 Rule Out 06/27/2024 06/27/2024 06/27/2024 2:39 PM FLEET MANAGER Respiratory Rule Out 07/14/2024 07/14/2024 025 12:08 AM FLEET MANAGER Respiratory Rule Out 07/26/2024 07/26/2024 025 9:16 PM CDT Tuberculosis Rule-Out 07/29/2024 07/29/20242024 6:47 AM CDT documented as of this encounter Care Teams Pin Sticker Relationship Specialty Start Date End Date Coco Muñiz, [facility] [address], [address] [place] [address] PCP - General Nurse Practitioner Family 01/27/23 11/25/24 [place] [address], [address] [place] [address] CARDIOVASCULAR DISEASE 06/04/23 Gabriele Doshi MD [address] [facility] [address] [place] [address] Referring Physician NEPHROLOGY 06/04/23 Lynn Vanegas, RN [address] [place] [address] Oil Deliverer (Ambulatory) REGISTERED NURSE 07/15/24 09/15/24 documented as of this encounter
--- OUTSIDE RECORDS SUMMARY | 2024-10-31 18:19 | XMS_ITS | Encounter Summary ---
Author Organization [facility] Address [facility] [place] [address] Care Team Providers Care Tax Services Manager Name Role Phone Lisset Luis [facility] Primary Care Provider + Raymond Brunson MD Unavailable Unavail able Gabriele Doshi MD Unavailable [phone] Lynn Vanegas RN Unavailable [phone] Encounter Details Date Type Department Care Team (Late st Contact Info) Description 05/20/2024 MyCAngelfisht Message Enc [facility] Medical Group Family & Internal Medicine [facility] [address] [place] [phone] Lisset Luis, [address], [address] [place] [address] update on my mother Social [...] No 02/02/2023 Housing Stability Vital Sign Answer Aelx e Recorded In the last 12 months, [...] Sex Assigned at Female 06/22/2024 11:23 AM HORTICULTURAL FARM MANAGER Legal Sex Female 8:19 PM CDT Gender Identity Female 07/22/2024 3:29 PM HORTICULTURAL FARM MANAGER Sexual Orientation Straight 07/22/2024 3: 29 PM HORTICULTURAL FARM MANAGER documented as of this encounter Functional [...] this encounter Progress Notes * Lisset Luis, ANIMATION ARTIST-BC - 05/23/2024 10:43 AM CST These are [...] would recommend sending her readings to her supervisor paint department. Unfortunately, if she is not taking her [...] to take medications or see specialist providers. ICULTURAL FARM MANAGER * Jackie Hall RN - 05/20/2024 3:34 PM CST Please review blood glucose numbers. ICULTURAL FARM MANAGER * Jackie Hall RN - 05/20/2024 11:43 AM CST Please review and advise ICULTURAL FARM MANAGER documented in this encounter Plan of Treatment Upcoming Encounters Date Type Department Care Team (Late st Contact Info) Description 12/12/2024 11:00 AM CDT Office Visit [facility] Medical Group Family & Internal Medicine [address] [address] [place] [address] [facility] [address] [place] [address] documented as of this encounter Visit Diagnoses Not on filedocumented in this encounter Additional Health Concerns Infection Onset Date Last Indicated Resolved Time COVID-19 Rule Out 06/27/2024 06/27/2024 06/27/2024 2:39 PM HORTICULTURAL FARM MANAGER Respiratory Rule Out 07/14/2024 07/14/2024 025 12:08 AM HORTICULTURAL FARM MANAGER Respiratory Rule Out 07/26/2024 07/26/2024 025 9:16 PM CDT Tuberculosis Rule-Out 07/29/2024 07/29/20242024 6:47 AM CDT documented as of this encounter Care Teams Tax Services Manager Relationship Specialty Start Date End Date Lisset Luis FNP-BC [address], [address] [place] [address] PCP - General Nurse Practitioner Family 01/27/23 11/25/24 [place] [address], [address] [place] [address] CARDIOVASCULAR DISEASE 06/04/23 Gabriele Doshi MD [address] [facility] [address] [place] [address] Referring Physician NEPHROLOGY 06/04/23 Lynn Vanegas, RN [address] [place] [address] Wire Border Assembler (Ambulatory) REGISTERED NURSE 07/15/24 09/15/24 documented as of this encounter
--- OUTSIDE RECORDS SUMMARY | 2024-10-31 18:19 | XMS_ITS | Encounter Summary ---
Author Organization [facility] Address [facility] [place] [address] Care Team Providers Care Dog Food Shredder Operator Name Role Phone Lisset Luis [facility] Primary Care Provider + Raymond Brunson MD Unavailable Unavail able Gabriele Doshi MD Unavailable [phone] Lynn Vanegas RN Unavailable [phone] Reason for Referral * Surgical (Urgent) - Closed Specialty Diagnoses / Procedures Referred By Contac t Referred To Contact VASCULAR SURGERY Diagnoses Cerebrovascular accident (CVA) due to embolism of left anterior cerebral artery ([facility]) Subclavian artery stenosis Procedures OFFICE/OUTPATIENT NEW LOW MDM 30-44 MINUTES OFFICE/OUTPT VISIT,NEW,LEVL IV OFFICE/OUTPT VISIT,NEW,LEVL V OFFICE/OUTPT VISIT,EST,LEVL III OFFICE/OUTPT VISIT,EST,LEVL IV OFFICE/OUTPT VISIT,EST,LEVL V [facility] [address] [facility] [address] [place] [address] Phone: tel: fax: [place] [address] [place] [address] Phone: tel: fax: Referral ID Status Reason Start Date Expiration Date V isits Requested Visits Authorized [id number] Closed Specialty Services 06/10/2023 07/09/2024 1 1 AIN/CHECK AIRMAN * Consultation/Treatment (Routine) - Closed Specialty Diagnoses / Procedures Referred By Zenaida t Referred To Contact PAIN MANAGEMENT Diagnoses Cerebrovascular accident (CVA) due to embolism of left anterior cerebral artery ([facility]) DDD (degenerative disc disease), 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, sciatica laterality unspecified Chronic midline low back pain without sciatica Procedures OFFICE/OUTPATIENT NEW LOW MDM 30-44 MINUTES OFFICE/OUTPT VISIT,NEW,LEVL IV OFFICE/OUTPT VISIT,NEW,LEVL V OFFICE/OUTPT VISIT,EST,LEVL III OFFICE/OUTPT VISIT,EST,LEVL IV OFFICE/OUTPT VISIT,EST,LEVL V Lisset Luis FNP-BC [id number] [place] [address], [address] [address] Phone: tel: fax: Davis Villareal MD [address] [place] [address] Phone: tel: fax: Referral ID Status Reason Start Date Expiration Date V isits Requested Visits Authorized [id number] Closed Specialty Services 06/10/2023 06/10/2024 99 99 Scheduling Instructions Requests [place] [facility]. AIN/CHECK AIRMAN Encounter Details Date Type Department Care Team (Late st Contact Info) Description 06/08/2023 MyChart Message Enc [facility] Medical Group Family & Internal Medicine [address] [address] Lisset Luis FNP-BC [address] [facility], [address] [place] [address] Referrals Social History Tobacco Use Types [...] Sex Assigned at Female 06/22/2024 11:23 AM CAPTAIN/CHECK AIRMAN Legal Sex Female 8:19 PM CDT Gender Identity Female 07/22/2024 3:29 PM CAPTAIN/CHECK AIRMAN Sexual Orientation Straight 07/22/2024 3: 29 PM CAPTAIN/CHECK AIRMAN documented as of this encounter Functional Status [...] 4:09 PM CST Referrals have been entered. AIN/CHECK AIRMAN * JENI Haynes - 06/10/2023 3:33 PM CST Okay for pain management referral to Dr. Villareal [facility] for lumbar spinal stenosis and chronic lower back pain. Imaging should be up to date for pain management. Dr. Doshi, Nephrology, should be able toorder any imaging he would like through [facility]. AIN/CHECK AIRMAN * Jackie Hall RN - 06/10/2023 10:57 AM CST Order for walker has been faxed to [facility] AIN/CHECK AIRMAN * Jackie Hall RN - 06/10/2023 10:51 AM CST Ok for referrals?? AIN/CHECK AIRMAN documented in this encounter Plan of Treatment Upcoming Encounters Date Type Department Care Team (Late st Contact Info) Description 12/12/2024 11:00 AM CDT Office Visit [facility] Medical Group Family & Internal Medicine [address] [address] Christine Plasencia [place] [phone] [place] [address] Scheduled Referrals Name Type Priority Associated Diagnoses [...] to embolism of left anterior cerebral artery ([facility])- Primary DDD (degenerative disc disease), lumbar Degeneration of lumbar or lumbosacral intervertebral disc 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, sciatica laterality unspecified Subclavian artery stenosis Stricture of artery documented in this encounter Additional Health Concerns Infection Onset Date Last Indicated Resolved Time COVID-19 Rule Out 06/27/2024 06/27/2024 06/27/2024 2:39 PM CAPTAIN/CHECK AIRMAN Respiratory Rule Out 07/14/2024 07/14/2024 025 12:08 AM CAPTAIN/CHECK AIRMAN Respiratory Rule Out 07/26/2024 07/26/2024 025 9:16 PM CDT Tuberculosis Rule-Out 07/29/2024 07/29/20242024 6:47 AM CDT documented as of this encounter Care Teams Dog Food Shredder Operator Relationship Specialty Start Date End Date Lisset Luis, COOLER OPERATOR- [address], [address] [place] [address] PCP - General Nurse Practitioner Family 01/27/23 11/25/24 [place] [address], [address] [place] [address] CARDIOVASCULAR DISEASE 06/04/23 Gabriele Doshi MD [address] [facility] [address] [place] [address] Referring Physician NEPHROLOGY 06/04/23 Lynn Vanegas RN [address] [place] [address] Production Grader (Ambulatory) REGISTERED NURSE 07/15/24 09/15/24 documented as of this encounter
--- OUTSIDE RECORDS SUMMARY | 2024-10-31 18:19 | XMS_ITS | Clinical Summary ---
Author Organization [facility] Address Counts include 234 beds at the [facility] [place] [address] Care Team Providers Care Sports Team Marketing Intern Name Role Phone Lisset Luis [facility] Primary Care Provider + Raymond Brunson MD Unavailable Unavail able Gabriele Doshi MD Unavailable [phone] Allergies Active Allergy Reactions Criticality Noted Date [...] , with long-term current use of insulin ([facility]) 1 Device by Does not apply route [...] SOLOSTAR) 100 UNIT/ML injection (PEN)Indicatio ns:Diabetes mellitus ([facility] HHS/[facility]) Inject 45 Units into the skin daily. 15 mL 1 025 Active rOPINIRole (REQUIP) 0.25 MG tabletIndicati ons:Restless legs Take 1 tablet (0.25 mg total) by mouth nightly at bedtime. 90 tablet 025 Active insulin lispro, 1 Unit Dial, (HUMALOG KWIKPEN) 100 UNIT/ML injection (PEN)Indicatio ns:Type 2 diabetes mellitus with diabetic polyneuropathy , with long-term current use of insulin ([facility] HHS/[facility]) Inject 12 units subcutaneously three times daily [...] SOLOSTAR 100 UNIT/ML injection (PEN)Indicatio ns:Diabetes mellitus ([facility]/HCC HHS/HCC) INJECT 40 UNITS INTO THE SKIN EVERY MORNING 15 mL 1 025 2024 Discontinued(R eorder) insulin glargine (LANTUS SOLOSTAR) 100 UNIT/ML injection (PEN)Indicatio ns:Diabetes mellitus ([facility]/HCC HHS/HCC) Inject 45 Units into the skin daily. 15 mL 1 025 2024 Discontinued(R eorder) melatonin 10 MG tabletIndicati ons:Sleep Disorder Take 2 tablets (20 mg total) by mouth nightly as needed for Sleep. 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 -remains on lasix gtt, may stop today, Cr trending up - ECHO with normal EF, severe diastolic dysfunction. -appreciate cardiology recs Cerebrovascular accident (CV A) due to embolism of left anterior cerebral artery ([facility]) 05/05/2018 Coronary atherosclerosis of [place] coronary vess el 02/17/2014 Essential hypertension 02/17/2014 Overview (02/15/2023): Last Assessment & Plan: Continue home medications with hold parameters Hyperlipidemia associated wi th type 2 diabetes mellitus ([facility]) 02/17/2014 Overview (02/15/2023): Last Assessment & Plan: LDL is 26, HDL is 47 Continue current statin Moderate episode of recurrent major depressive d isorder 02/17/2014 Overview (02/15/2023): Last Assessment & Plan: Continue home medications Type 2 diabetes mellitus wit h diabetic polyneuropathy, with long-term current use of insulin ([facility]) 02/17/2014 Overview (02/15/2023): Last Assessment & Plan: [...] Care Team Description 10/24/2024 MyChart Message Enc [facility] [address] [phone] Lisset Luis FNP-JEFFRY Glucose 10/20/2024 Scan [facility] INFO SRVCS Scanned, Doc [facility] 10/20/2024 Telephone [facility] [address] [address] Lisset Luis PRODUCTION TECHNOLOGIST-BC Record Request 10/19/2024 Scan [facility] INFO SRVCS Scanned, [facility] 10/19/2024 Orders Only [facility] [address] [address] Lisset Luis FNP-BC 10/14/2024 MyChart Message Enc [facility] [address] [phone] Lisset Luis PRODUCTION TECHNOLOGIST-BC My mom s meds 10/13/2024 Scan [facility] INFO SRVCS Scanned, [facility] 10/11/2024 Orders Only [facility] [address] [phone] Lisset Luis, PRODUCTION TECHNOLOGIST-BC 10/11/2024 MyChart Message Enc [facility] [address] [address] Lisset Luis, PRODUCTION TECHNOLOGIST-BC Glucose report 09/23/2024 Scan [facility] HE[facility] INFO SRVCS Scanned, [facility] 09/19/2024 MyChart Message Enc [facility] [address] [address] Lisset Luis, PRODUCTION TECHNOLOGIST-BC Glucose results 09/16/2024 Patient Outreach [facility] [address] [address] Lynn Vanegas, RN Care Management (CCM call to patient's daughter) 09/13/2024 Results Follow-Up [facility] [address] [phone] Lisset Luis, PRODUCTION TECHNOLOGIST-BC ALBUMIN/CREATININE RATIO, RANDOM URINE 09/13/2024 Results Follow-Up [facility] [address] [phone] Lisset Luis, PRODUCTION TECHNOLOGIST-BC CBC W/DIFF AUTOMATED, COMPREHENSIVE METABOLIC PANEL, HEMOGLOBIN, GLYCOSYLATED, Additional followed-up results: 3 09/12/2024 4:00 PM CDT Home Care Visit [address] [place], [place] [phone] Jaki Causey, PT PT OASIS DISCHARGE 09/12/2024 10:40 AM CDT Office Visit [facility] [address] [phone] Lisset Luis, PRODUCTION TECHNOLOGIST-BC Follow Up (6 mo f/u ) 09/12/2024 Travel 09/11/2024 MyChart Message Enc [facility] [place] [id number] [place] [phone] Lisset Luis, PRODUCTION TECHNOLOGIST-BC Glucose readings 09/07/2024 11:45 AM CDT Home Care Visit [address] [address] Jodie Howard, OT OT DISCIPLINE DISCHARGE 09/06/2024 12:45 PM CDT Home Care Visit [address] [address] Jayden Knox, CASE CONSULTANT CASE CONSULTANT HOME VISIT 09/06/2024 Patient Outreach [facility] [address] [phone] Lynn Vanegas, RN Care Management (Outreach call. ) 09/05/2024 Orders Only [facility] [address] [phone] Lisset Luis PRODUCTION TECHNOLOGIST-BC 09/05/2024 MyChart Message Enc [facility] [address] [phone] Lisset Luis, PRODUCTION TECHNOLOGIST-BC Blood work 08/31/2024 2:30 PM CDT Home Care Visit [address] [address] Suzan Andrade OTA GARCIA HOME VISIT 08/31/2024 Patient Outreach [facility] [address] [phone] Lynn Vanegas, RN Care Management (CDM outreach) 08/30/2024 9:00 AM CDT Home Care Visit [address] [place] [address] Jayden Knox, CASE CONSULTANT CASE CONSULTANT HOME VISIT 08/27/2024 Scan MG HEALTH INFO SRVCS Scanned, Doc Med Group 08/25/2024 11:00 AM CDT Home Care Visit [facility] Home Care [address] [place] [address] [place] [address] Suzan Andrade OTA GARCIA HOME VISIT 08/24/2024 10:30 AM CDT Home Care Visit [facility] Care [address] [place] [address] Haylie Moreno, RN SN DISCIPLINE DISCHARGE 08/24/2024 Home Care Visit [facility] Home Care [address] [place] [address] [place] [address] Haylie Moreno, YAZAN [facility] INTERDISCIPLINARY [place] 08/24/2024 Patient Outreach [facility] Medicine [address] [phone] Lynn Vanegas RN Care Management (CDM call to patient's daughter. ) 08/23/2024 12:15 PM CDT Home Care Visit [facility] Home Care [address] [facility] [place] [address] Jayden Knox, CASE CONSULTANT CASE CONSULTANT HOME VISIT 08/22/2024 MyChart Message Enc [facility] [address] [phone] Lisset Luis [facility] Hospital bed? 08/19/2024 MyChart Message Enc [facility] [address] [phone] Lisset Luis [facility] blood sugar and weight 08/18/2024 10:00 AM CDT Home Care Visit [facility] Care [address] [place] [address] Jayden Knox, CASE CONSULTANT CASE CONSULTANT HOME VISIT 08/18/2024 Patient Outreach [facility] Medicine [address] [phone] Lynn Vanegas, RN Care Management (CCM services initiated. ) 08/17/2024 1:00 PM CDT Home Care Visit [address] [phone] Kenton Maki, CRUISE COORDINATOR CRUISE COORDINATOR INITIAL EVALUATION 08/17/2024 11:30 AM CDT Home Care Visit [place] [phone] Samantha Miramontes LPN SN HOME VISIT 08/16/2024 1:30 PM CDT Home Care Visit [place] [phone] Jodie Howard, OT OT INITIAL EVALUATION 08/15/2024 3:30 PM CDT Home Care Visit [address] [address] Jaki Causey, PT PT INITIAL EVALUATION 08/15/2024 1:00 PM CDT Office Visit [facility] [address] [phone] Lisset Luis, PRODUCTION TECHNOLOGIST- TCM (TCM [facility] PN and gout and CHF 08/02-08/09/24 also having pain when swallowing and Gerd pain better today though) 08/15/2024 Home Care Visit [place] [phone] Kenton Maki, CRUISE COORDINATOR CASE COMMUNICATION 08/15/2024 Travel 08/15/2024 Patient Outreach [facility] [address] [phone] Maricruz Montalvo, INDUSTRIAL PHOTOGRAPHER Care Management 08/10/2024 8:30 AM CDT Home Care Visit [address] [phone] Viji Long, RN SN OASIS START OF CARE 08/10/2024 Plan of Care Documentation [address] [place] [address] [place] [address] 08/10/2024 Telephone [facility] [phone] [place] [phone] Lisset Luis FNP-BC Question 08/10/2024 Patient Outreach [facility] [phone] [place] [phone] Lynn Vanegas, RN TCM (TCM CATHY 07/14-07/22, [facility] 07/22-07/27, SJS 07/27-08/03, [facility] 08/03-08/09- Acute hypoxic respiratory failure) 08/10/2024 Hospital Follow-up Call [facility] Care Management [address] [place] [address] [place] LPN Follow Up Call ([facility] 08/03-08/09/24) 08/10/2024 Telephone [facility] Med/Surg [address] [place] [address] Fatemeh Guidry, interior assemblies developer prover (Pt left discontinued Sporanox at facility called patients Daughter/POA explained that technicallt this medication is theres to keep and daughter asked for us to dispose of medication.) 08/09/2024 Patient Outreach [facility] [phone] [place] [phone] Lynn Vanegas, RN Hospital Follow Up (TCM CATHY 07/14-07/22, [facility] 07/22-07/27, SJS 07/27-08/03, [facility] 08/03-08/09/24 ) 08/09/2024 Telephone [facility] [address] [place] [address] Lisset Luis FNP-BC TCM 08/04/2024 MyChart Message Enc [facility] Medical Group Family & Internal Medicine [facility] [address] [place] [address] Lisset Luis, [facility] hospital bed 08/04/2024 Telephone [facility] Home Care [address] [place] [address] Lisset Luis, [facility] Advise 08/03/2024 3:50 PM CDT - 08/09/2024 1:48 PM CDT Hospital Encounter [facility] Med/Surg [address] [place] [address] John Emanuel MD Helmholt, Jennifer, NP Discharge Disposition: Home with Home Health Care 08/03/2024 Travel 07/27/2024 10:32 PM CDT - 08/03/2024 1:57 PM CDT Hospital Encounter [facility] [address] [place] [address] Vinny Caceres MD Shackour, Salim, MD Jabeen, Brinda Leung MD Discharge Disposition: Intermediate Facility from Last 3 Months Immunizations Immunization [...] MCG/ 0.5 ML DOSE 08/13/2020,07/17/2020 [facility] COVID-19 (HOSPICE BEREAVEMENT COORDINATOR MARY ANN SHIVA), MRNA, LNP-S, PF, 50 MCG/ 0.25 ML DOSE 10/04/2021 Pneumococcal (Pneumovax 23) 02/15/2010 Pneumococcal (Prevnar 13) 09/19/2016 Shingrix 10/26/2018,08/30/2018,08/06/2018 Tdap (Generic) 05/18/1976 Zoster (Zostavax) [address]2925 Unt/0.65Ml 02/15/2013 Family History Medical History Relation Comments Cancer Brother Heart Disease Brother Hypertension Brother Kidney Disease Brother Asthma Daughter 1 Cancer Daughter 2 Early Father Heart Disease Father Hypertension Father [place] Father Arthritis Mother CHF Mother Cancer Mother [...] from your doctor or pharmacy? Never 07/22/2024 [facility] Utilities Answer Date Recorded In the past 12 months has e [employer], [employer], oil, or water [employer] threatened to shut off services in your [...] How often do you attend chur or mandaeism services? 1 to 4 times per year [...] place to sleep or slept in a retirement (including now)? No 02/02/2023 Housing Stability Vital Sign Answer Alex e Recorded In the last 12 months, was t here a time when you were not able to pay the mortgage or rent on time? No 07/28/2024 In the past 12 months, how m any times have you moved where you were living? 0 07/28/2024 At any time in the past 12 m [facility], were you homeless or living in a retirement (including now)? No 07/28/2024 Comments No Sex and Gender Information Value Date Recorded Sex Assigned at Female 06/22/2024 11:23 AM DOOR CLOSER MECHANIC Legal Sex Female 8:19 PM CDT Gender Identity Female 07/22/2024 3:29 PM DOOR CLOSER MECHANIC Sexual Orientation Straight 07/22/2024 3: 29 PM DOOR CLOSER MECHANIC Last Filed Vital Signs Vital Sign Reading [...] Description 12/12/2024 11:00 AM CDT Office Visit [facility] Family & [facility] [place] [phone] [place] [phone] [place] [phone] [facility] Suite [facility] [place] [address] Health Maintenance Due Date Last [...] (General) Completed 11/28/2022, 11/28/2022, 10/16/2016 PHQ-2 (Physician [place]) Completed 07/22/2024 Meningococcal B Vaccine Aged Out No l onger eligible based on patient's age to complete this topic Meningococcal Vaccine Aged Out No mikki richardson eligible based on patient's age to complete this topic RSV Immunizations Under 20 Months Aged Out No longer eligible based on patient's age to complete this topic Medical Devices Implanted Type Area Psychiatry Resident Device Identifier Shelf Expiration Date Model / Serial / Lot Stimulator Lead-09/29/2014 Implanted:Qty: 1 on 09/29/2014 Lead Implant [employer] [id number] / / [id number] Stimulator Lead-09/29/2014 Implanted:Qty: 1 on 09/29/2014 Lead Implant [employer] [id number] / / [id number] Stimulator Implant-09/20/19 Implanted:Qty: 1 on 09/19/2014 Stimulator Implant Spine Lumbar [employer] [id number] / [id number] H / Description:MR Conditional a t 1.5 T only, full body eligible (follow most recent MRI technical manual conditions), stimulation needs to be turned off prior to MRI Procedures Procedure Name Priority Date/Time Associated Diagnosis Comments ALBUMIN URINE RANDOM W/CREATININE Routine 09/12/2024 11:48 AM CDT Stage 4 chronic kidney disease ([facility]) PTH - INTACT Routine 09/05/2024 10:39 AM CDT VITAMIN D, 25 OH Routine 09/05/2024 10:3 9 AM CDT Stage 4 chronic kidney disease ([facility] HHS/[facility]) LIPID PANEL Routine 09/05/2024 10:39 AM CDT Hyperlipidemia associated with type 2 diabetes mellitus ([facility]) HEMOGLOBIN, GLYCOSYLATED Routine 09/05/2024 10:39 AM CDT Diabetes mellitus ([facility]) Type 2 diabetes mellitus with diabetic polyneuropathy, with long-term current use of insulin ([facility]) COMPREHENSIVE METABOLIC PANEL Routine 09/05/2024 10:39 AM CDT Essential hypertension Atherosclerosis of [place] coronary artery of [place] heart without angina pectoris Stage 4 chronic kidney disease ([facility] HHS/HCC) CBC W/DIFF AUTOMATED Routine 09/05/2024 10:39 AM CDT Stage 4 chronic kidney disease ([facility] HHS/HCC) POCT GLUCOSE - DOCKED DEVICE Routine [...] RANDOM (U) 49 20 - 275 mg/dL [facility] MICROALBUMIN (U) 0.9 See Note: mg/dL [facility] Comment: Reference Range: Reference Range Not established MICROALB/CREAT 18 <30 mg/g creat [facility] Comment: The ADA defines abnormalities in albumin [...] Agency Comment Performing Organization Information: Site ID: [place] Name: [facility] Address: [address] [address] Director: Cassie Trevino MD Lisset Luis [facility] URINE ORDERABLES Final R esult Performing Organization Address [facility] Co de Phone Number [facility] PRATIK - KARLA ORDERS [facility] [id number] [place] [phone], * (ABNORMAL) PTH - INTACT (09/05/2024 10:39 AM CDT) PTH INTACT 112(H) 16 - 77 pg/mL [facility] Comment: Interpretive Guide Intact PTH Calcium ------- Normal Parathyroid Normal Normal Hypoparathyroidism Low or Low Normal Low Hyperparathyroidism Primary Normal or High High Secondary High Normal or Low Tertiary High High Non-Parathyroid Hypercalcemia Low or Low Normal High 09/05/2024 10:3 9 AM CDT 09/05/2024 10:40 AM CDT Narrative [facility] - KARLA ORDERS - 09/06/2024 5:29 AM CDT FASTING:YES COLLECTION KIT GIVEN TO PATIENT. PATIENT ADVISED TO RETURN. FASTING: YES Resulting Agency Comment Performing Organization Information: Site ID: [place] Name: [facility] Address: [address] [place] [id number] Director: Cassie Trevino MD Lisset Luis [facility] Final Re sult Performing Organization Address [facility] de Phone Number [facility] PRATIK - KARLA SOMMERS [facility] [id number] [place] [phone], * (ABNORMAL) HEMOGLOBIN, GLYCOSYLATED (09/05/2024 10:39 AM CDT) HGB A1C 9.3(H) <5.7 % of total Hgb [facility] [place] Comment: For someone without known diabetes, [...] Performing Organization Information: Site ID: [place] [facility] Address: [address] [place] [phone] Director: Cassie Trevino Lisset Luis [facility] Final Re sult [facility] - KARLA ORDERS [address] [phone], * (ABNORMAL) COMPREHENSIVE METABOLIC PANEL (09/05/2024 10:39 AM CDT) Only the most recent of2 resultswithin the time period is included. GLUCOSE 170(H) 65 - 99 mg/dL [facility] Comment: Fasting reference interval For someone without known diabetes, a glucose value >125 mg/dL indicates that they may have diabetes and this should be confirmed with a follow-up test. BUN 28(H) 7 - 25 mg/dL [facility] CREATININE S/P/B 1.22(H) 0.60 - 0.95 mg/dL [facility] GFR ESTIMATE 44(L) > OR = 60 mL/min/1. 73m2 [facility] BUN CREATININE RATIO 23(H) 6 - 22 (calc) [facility] [place] SODIUM S/P/B 138 135 - 146 mmol/L [facility] POTASSIUM S/P/B 4.4 3.5 - 5.3 mmol/L [facility] CHLORIDE S/P/B 102 98 - 110 mmol/L [facility] [place] CO2 29 20 - 32 mmol/L [facility] [place] CALCIUM S/P/B 8.9 8.6 - 10.4 mg/dL [facility] TOTAL PROTEIN S/P/B 6.7 6.1 - 8.1 g/dL [facility] ALBUMIN S/P/B 4.1 3.6 - 5.1 g/dL [facility] GLOBULIN 2.6 1.9 - 3.7 g/dL (calc) [facility] ALBUMIN/GLOBULIN RATIO 1.6 1.0 - 2.5 (calc) [facility] BILIRUBIN TOTAL S/P/B 0.3 0.2 - 1.2 mg/dL [facility] ALKALINE PHOSPHATASE S/P/B 91 37 - 153 U/L [facility] AST 20 10 - 35 U/L [facility] ALT 18 6 - 29 U/L [facility] 09/05/2024 10:3 9 AM CDT 09/05/2024 10:40 AM CDT Narrative [facility] - KARLA ORDERS - 09/06/2024 5:29 AM CDT FASTING:YES COLLECTION KIT GIVEN TO PATIENT. PATIENT ADVISED TO RETURN. FASTING: YES Resulting Agency Comment Performing Organization Information: Site ID: [place] Name: [facility] Address: [address] [place] [phone] Director: Cassie Trevino MD Lisset Luis [facility] Final Re sult [facility] PRATIK KARLA [facility] [id number] [place] [phone], * (ABNORMAL) LIPID PANEL (09/05/2024 10:39 AM CDT) CHOLESTEROL 144 <200 mg/dL [facility] HDL 52 > OR = 50 mg/dL [facility] TRIGLYCERIDES 251(H) <150 mg/dL [facility] Comment: If a non-fasting specimen was collected, consider repeat triglyceride testing on a fasting specimen if clinically indicated. Juliana et al. J. of Clin. Lipidol. 2015;9:129-169. LDL (CALCULATED) 62 mg/dL (calc) [facility] Comment: Reference range: <100 Desirable range <100 mg/dL for primary prevention; <70 mg/dL for patients with CHD or diabetic patients with > or = 2 CHD risk factors. LDL-C is now calculated using the Luther calculation, which is a validated novel method providing better accuracy than the Friedewald equation in the estimation of LDL-C. Bhavin OGLESBY et al. ZION. 2013;310(19): 3062-4932 (http://education.Repligen/faq/MYL621) CHOL/HDL RATIO 2.8 <5.0 (calc) [facility] NON HDL CHOLESTEROL 92 <130 mg/dL (calc) [facility] Comment: For patients with diabetes plus 1 major ASCVD risk factor, treating to a non-HDL-C goal of <100 mg/dL (LDL-C of <70 mg/dL) is considered a therapeutic option. 09/05/2024 10:3 9 AM CDT 09/05/2024 10:40 AM CDT Narrative [facility] [employer] KARLA ORDERS - 09/06/2024 5:29 AM CDT FASTING:YES COLLECTION KIT GIVEN TO PATIENT. PATIENT ADVISED TO RETURN. FASTING: YES Resulting Agency Comment Performing Organization Information: Site ID: [place] Name: [facility] Address: [address] [place] [address] Director: Cassie Trevino MD Lisset Luis [facility] Final Re sult [facility] KARLA [facility] [address] [place] [address], * (ABNORMAL) CBC W/DIFF AUTOMATED (09/05/2024 10:39 AM CDT) Only the most recent of3 resultswithin the time period is included. WBC 5.3 3.8 - 10.8 Thousand/ uL [facility] RBC 4.21 3.80 - 5.10 Million/u L [facility] HGB 10.9(L) 11.7 - 15.5 g/dL [facility] HCT 35.4 35.0 - 45.0 % [facility] MCV 84.1 80.0 - 100.0 fL [facility] [...] % [facility] MONOCYTES 8.4 % [facility] BLANE EOSINOPHILS 2.6 % [facility] BLANE BASOPHILS 0.9 % [facility] BL[facility] 09/05/2024 10:3 9 AM CDT 09/05/2024 10:40 AM CDT Narrative [facility] - KARLA ORDERS - 09/06/2024 5:29 AM CDT FASTING:YES COLLECTION KIT GIVEN TO PATIENT. PATIENT ADVISED TO RETURN. FASTING: YES Resulting Agency Comment Performing Organization Information: Site ID: [place] Name: [facility] Address: [address] [place] [address] Director: Cassie Trevino MD us Lisset Luis [facility] Final Re sult [facility] - KARLA ORDERS [facility] [address] [facility] [place] [address], LB * (ABNORMAL) VITAMIN D, 25 OH (09/05/2024 10:39 AM CDT) VITAMIN D 25 HYDROXY TOTAL S/P/B 19(L) 30 - 100 ng/mL [facility] Comment: Vitamin D Status 25-OH Vitamin D: Deficiency: <20 ng/mL Insufficiency: 20 - 29 ng/mL Optimal: > or = 30 ng/mL For 25-OH Vitamin D testing on patients on D2-supplementation and patients for whom quantitation of D2 and D3 fractions is required, the QuestAssureD(TM) 25-OH VIT D, (D2,D3), LC/MS/MS is recommended: order code [id number] (patients >2yrs). See Note 1 Note 1 For additional information, please refer to http://education.Repligen/faq/ZVO472 (This link is being provided for informational/ educational purposes only.) 09/05/2024 10:3 9 AM CDT 09/05/2024 10:40 AM CDT Narrative [facility] - KARLA ORDERS - 09/06/2024 5:29 AM CDT FASTING:YES COLLECTION KIT GIVEN TO PATIENT. PATIENT ADVISED TO RETURN. FASTING: YES Resulting Agency Comment Performing Organization Information: Site ID: [place] Name: [facility] Address: [address] [place] [id number] Director: Cassie Trevino MD Lisset Luis [facility] Final Re sult Performing Organization Address [facility]/ZIP Co de Phone Number [facility] - KARLA MATTHIEU [facility] [id number] [place] [id number], * (ABNORMAL) POCT glucose (08/09/2024 11:59 AM CDT) Only the most recent of36 resultswithin the time period is included. GLUCOSE POC 219(H) 70 - 110 mg/dL 08/10/2024 7:57 AM CDT [facility] () [facility] 08/09/2024 11:5 9 AM CDT Nita De Luna UNEMPLOYMENT SPECIALIST POCT ORDERABLES - DEVICE Fi nal Result [facility] [address] [place] [address], [place] [phone] * TROPONIN, QUANT (08/08/2024 12:10 PM CDT) [facility] TROPONIN I HIGH SENSITIVITY 11 0 - 50 ng/L 08/08/2024 12:37 PM CDT [facility] Comment: HIGH DOSES OF BIOTIN, TROPONIN-SPECIFIC AUTOANTIBODIES, AND ANTIBODY THERAPY CONTAINING HAMA MAY INTERFERE WITH THIS TEST RESULT. CORRELATION TO CLINICAL HISTORY AND PRESENTATION RECOMMENDED. 08/08/2024 12:1 0 PM CDT Nita De Luna NP LABORATORY Final Resul t [facility] [address] [place] [address], * (ABNORMAL) BASIC METABOLIC PANEL (08/08/2024 5:30 AM CDT) Only the most recent of5 resultswithin the time period is included. [facility] GLUCOSE 162(H) 70 - 99 MG/DL 08/08/2024 7:03 AM CDT [facility] BUN 49(H) 7 - 18 MG/DL 08/08/2024 7:03 AM CDT [facility] CREATININE S/P/B 1.43(H) 0.55 - 1.02 MG/DL 08/08/2024 7:03 AM CDT [facility] SODIUM S/P/B 137 136 - 145 MMOL/L 08/08/2024 7:03 AM CDT [facility] POTASSIUM S/P/B 4.3 3.5 - 5.1 MMOL/L 08/08/2024 7:03 AM CDT [facility] CHLORIDE S/P/B 100 100 - 108 MMOL/L 08/08/2024 7:03 AM CDT [facility] CO2 28.8 21 - 32 MMOL/L 08/08/2024 7:03 AM CDT [facility] CALCIUM S/P/B 9.3 8.5 - 10.1 MG/DL 08/08/2024 7:03 AM CDT [facility] ANION GAP 8.2 5 - 15 MMOL/L 08/08/2024 7:03 AM T [facility] BUN CREATININE RATIO 34.3(H) 6 - 26 08/08/2024 7:03 AM T [facility] GFR ESTIMATE 36(L) >90 ML/MIN/1.7 3 M2 08/08/2024 7:03 AM CDT [facility] Comment: NOTE: eGFR is not calculated for patients <18 years of age. This is an estimated GFR calculation using the new CKD EPI creatinine equation without race and so does not require a correction factor for race. This estimated GFR should not be used for calculating drug doses. 08/08/2024 5:30 AM CDT Nita De Luna NP LABORATORY Final Resul t [facility] [address] [place] [address], [place] [phone] * MAGNESIUM (08/08/2024 5:30 AM CDT) Only the most recent of2 resultswithin the time period is included. MAGNESIUM 2.4 1.8 - 2.4 MG/DL 08/08/2024 7:03 AM CDT [facility] 08/08/2024 5:30 AM CDT Nita De Luna NP LABORATORY Final Resul t [facility] [address] [place] [address], * CT CHEST W CON (08/02/2024 11:32 [...] 1:39 PM Narrative 08/02/2024 1:49 PM CDT [address] [address] EXAMINATION: CT Chest with contrast DATE: 08/02/2024 [...] Procedure Note Lalo Maki MD - 08/02/2024 [facility] [address] [place], [place] [address] EXAMINATION: CT Chest with contrast DATE: 08/02/2024 [...] 1,441(H) <450 PG/ML 08/01/2024 2:50 PM CDT [facility] Comment: AGE INDEPENDENT: <300 PG/ML HAS [...] us Brinda Fuentes MD LABORATORY Final Result [facility] [address] [place] [address], [phone] * XR CHEST PORTABLE (08/01/2024 4:02 AM [...] 4:38 AM Narrative 08/01/2024 4:39 AM CDT [address] [address] Examination: XR CHEST PORTABLE Exam time: 08/01/2024 4:00 AM Indication: Pneumonia Comparison: Chest 07/31/2024 Findings: Upright AP view of the chest was obtained. Cardiomegaly. Very mild improved aeration of the right lung with significant residual diffuse infiltrate persisting. No pleural effusion or pneumothorax. Procedure Note Nathan Wooten MD - 08/01/[address] [address] Examination: XR CHEST PORTABLE Exam time: 08/01/2024 [...] DETECTED NOT DETECTED 08/01/2024 8:16 PM CDT [facility] PLESIOMONAS SHIGELLOIDES PCR (STOOL) NOT DETECTED NOT DETECTED 08/01/2024 8:16 PM CDT [facility] SALMONELLA PCR (STOOL) NOT DETECTED NOT DETECTED 08/01/2024 8:16 PM CDT [facility] VIBRIO PCR (STOOL) NOT DETECTED NOT DETECTED 08/01/2024 8:16 PM CDT [facility] VIBRIO CHOLERAE PCR (STOOL) NOT DETECTED NOT DETECTED 08/01/2024 8:16 PM CDT [facility] YERSINIA ENTEROCOLITICA PCR (STOOL) NOT DETECTED NOT DETECTED 08/01/2024 8:16 PM CDT [facility] ENTEROAGGREGATIVE ECOLI PCR (STOOL) NOT DETECTED NOT DETECTED 08/01/2024 8:16 PM CDT [facility] ENTEROPATHOGENIC ECOLI PCR (STOOL) NOT DETECTED NOT DETECTED 08/01/2024 8:16 PM CDT [facility] ENTEROTOXIGENIC ECOLI PCR (STOOL) NOT DETECTED NOT DETECTED 08/01/2024 8:16 PM CDT [facility] SHIGA LIKE TOXIN ECOLI PCR (STOOL) NOT DETECTED NOT DETECTED 08/01/2024 8:16 PM CDT [facility] SHIG/ENTEROINVASIVE ECOLI PCR (STOOL) NOT DETECTED NOT DETECTED 08/01/2024 8:16 PM CDT [facility] CRYPTOSPORIDIUM PCR (STOOL) NOT DETECTED NOT DETECTED 08/01/2024 8:16 PM CDT [facility] CYCLOSPORA CAYETANENSIS PCR (STOOL) NOT DETECTED NOT DETECTED 08/01/2024 8:16 PM CDT [facility] ENTAMOEBA HISTOLYTICA PCR (STOOL) NOT DETECTED NOT DETECTED 08/01/2024 8:16 PM CDT [facility] GIARDIA LAMBLIA PCR (STOOL) NOT DETECTED NOT DETECTED 08/01/2024 8:16 PM CDT [facility] ADENOVIRUS F40/41 PCR (STOOL) NOT DETECTED NOT DETECTED 08/01/2024 8:16 PM CDT [facility] ASTROVIRUS PCR (STOOL) NOT DETECTED NOT DETECTED 08/01/2024 8:16 PM CDT [facility] NOROVIRUS GI/GII PCR (STOOL) NOT DETECTED NOT DETECTED 08/01/2024 8:16 PM CDT [facility] ROTAVIRUS A PCR (STOOL) NOT DETECTED NOT DETECTED 08/01/2024 8:16 PM CDT [facility] SAPOVIRUS PCR (STOOL) NOT DETECTED NOT DETECTED 08/01/2024 8:16 PM CDT [facility] STOOL SPECIMEN / Unknown 07/31/2024 5:47 PM CDT us Brinda Fuentes MD MICROBIOLOGY - GENERAL ORDER EUNICE Final Result [facility] [address] [place] [address], * CLOSTRIDIUM DIFFICILE (07/31/2024 5:47 PM CDT) [facility] ANTIGEN NEGATIVE NEGATIVE 07/31/2024 7:23 PM CDT [facility] C DIFFICILE TOXIN A&B (STOOL) NEGATIVE NEGATIVE 07/31/2024 7:23 PM CDT [facility] COMMENT GDH NEGATIVE/TOXI N A & B NEGATIVE: NEGATIVE FOR TOXIGENIC C. DIFFICILE. GDH NEGATIVE/TOXI N A & B NEGATIVE: NEGATIVE FOR TOXIGENIC C. 07/31/2024 7:23 PM CDT [facility] STOOL SPECIMEN / Unknown 07/31/2024 5:47 PM CDT us Brinda Fuentes MD BODY FLUIDS AND STOOLS ORDER EUNICE Final Result Performing Organization Address [facility]/ZIP Co de Phone Number [facility] [address] [place] [address], [phone] * DIABETIC RETINOPATHY EXAM (NEGATIVE) (03/14/2024) us [facility] Scanned SCANNING Final Resu lt Performing Organization Address City/[facility]/ZIP Co de Phone Number [facility] ONBASE from Last 3 Months or Most Recently Relevant to Health Maintenance Insurance MEDICARE [facility] Advance Directives Documents on File Type Date Recorded 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
--- OUTSIDE RECORDS SUMMARY | 2024-10-31 18:19 | XMS_ITS | Encounter Summary ---
Author Organization [facility] Address [facility] [place] [address] Care Team Providers Care High School Tutor Name Role Phone Lisset Luis [facility] Primary Care Provider + Raymond Brunson MD Unavailable Unavail able Gabriele Doshi MD Unavailable [phone] Lynn Vanegas RN Unavailable [phone] Reason for Visit * Reason Onset Date Comments Appointment Request 06/15/2024 Encounter Details Date Type Department Care Team (Late st Contact Info) Description 06/15/2024 [employer] Panelt Message Enc [facility] Group Family & Internal Medicine [facility] [address] [place] [address] Lisset Luis, [facility] [phone] [place] [address], [address] [place] [address] Nestor burciaga Social History Tobacco [...] Sex Assigned at Female 06/22/2024 11:23 AM METALLURGY LABORATORY TECHNICIAN Legal Sex Female 8:19 PM CDT Gender Identity Female 07/22/2024 3:29 PM METALLURGY LABORATORY TECHNICIAN Sexual Orientation Straight 07/22/2024 3: 29 PM METALLURGY LABORATORY TECHNICIAN documented as of this encounter Functional Status [...] RN - 06/15/2024 4:29 PM CST Noted. LLURGY LABORATORY TECHNICIAN * Radha Goyal - 06/15/2024 4:18 PM CST Paige called and set up an apt for ceci on 07/04. She was put on the wait list to try to get an earlier opening. LLURGY LABORATORY TECHNICIAN * JENI Haynes - 06/15/2024 12:30 PM CST She will need a [id number] to order a hospital bed. LLURGY LABORATORY TECHNICIAN * Jackie Hall RN - 06/15/2024 11:36 AM CST Please advise? LLURGY LABORATORY TECHNICIAN documented in this encounter Plan of Treatment Upcoming Encounters Date Type Department Care Team (Late st Contact Info) Description 12/12/2024 11:00 AM CDT Office Visit [facility] Medical Group Family & Internal Medicine - [place] [address] [place] [address] [place] [address] [facility] [address] [facility]. [place], [place] [id number] documented as of this encounter Visit Diagnoses Not on filedocumented in this encounter Additional Health Concerns Infection Onset Date Last Indicated Resolved Time COVID-19 Rule Out 06/27/2024 06/27/2024 06/27/2024 2:39 PM METALLURGY LABORATORY TECHNICIAN Respiratory Rule Out 07/14/2024 07/14/2024 025 12:08 AM METALLURGY LABORATORY TECHNICIAN Respiratory Rule Out 07/26/2024 07/26/2024 025 9:16 PM CDT Tuberculosis Rule-Out 07/29/2024 07/29/20242024 6:47 AM CDT documented as of this encounter Care Teams High School Tutor Relationship Specialty Start Date End Date Lisset Luis FNP-BC [address] [place], [place] [id number] PCP - General Nurse Practitioner Family 01/27/23 11/25/24 [place] [address] [address] [place] [address] CARDIOVASCULAR DISEASE 06/04/23 Gabriele Doshi MD [address] [place] [address] Referring Physician NEPHROLOGY 06/04/23 Lynn Vanegas, RN [address] [place] [address] Manager Assembly (Ambulatory) REGISTERED NURSE 07/15/24 09/15/24 documented as of this encounter
--- OUTSIDE RECORDS SUMMARY | 2024-10-31 18:19 | XMS_ITS | Encounter Summary ---
Author Organization [facility] Address [facility] [place] [address] Care Team Providers Care Cath Lab Tech Name Role Phone Lisset Luis [facility] Primary Care Provider + Raymond Brunson MD Unavailable Unavail able Gabriele Doshi MD Unavailable [phone] Lynn Vanegas RN Unavailable [phone] Encounter Details Date Type Department Care Team (Late st Contact Info) Description 03/04/2023 CrowdRiset Message Enc [facility] Medical Group Family & Internal Medicine [facility] [phone] [place] [address] Lisset Luis, [address], [address] [place] [address] A1C Social History Tobacco Use [...] a assisted (including now)? No 02/02/2023 Comments Unknown Sex and Gender Information Value Date Recorded Sex Assigned at Female 06/22/2024 11:23 AM GMAT TUTOR Legal Sex Female 8:19 PM CDT Gender Identity Female 07/22/2024 3:29 PM GMAT TUTOR Sexual Orientation Straight 07/22/2024 3: 29 PM GMAT TUTOR documented as of this encounter Functional Status [...] Description 12/12/2024 11:00 AM CDT Office Visit [facility] Medical Group Family & Internal Medicine [facility] [address] [place] [phone] [place] [address] [facility] [address] [facility] [place] [address] documented as of this encounter Visit Diagnoses Not on filedocumented in this encounter Additional Health Concerns Infection Onset Date Last Indicated Resolved Time COVID-19 Rule Out 06/27/2024 06/27/2024 06/27/2024 2:39 PM GMAT TUTOR Respiratory Rule Out 07/14/2024 07/14/2024 025 12:08 AM GMAT TUTOR Respiratory Rule Out 07/26/2024 07/26/2024 025 9:16 PM CDT Tuberculosis Rule-Out 07/29/2024 07/29/20242024 6:47 AM CDT documented as of this encounter Care Teams Cath Lab Tech Relationship Specialty Start Date End Date Lisset Luis, [employer]- [address], [address] [place] [address] PCP - General Nurse Practitioner Family 01/27/23 11/25/24 [place] [address], [address] [place] [address] CARDIOVASCULAR DISEASE 06/04/23 Gabriele Doshi MD [address] [place] [address] Referring Physician NEPHROLOGY 06/04/23 Lynn Vanegas, RN [address] [place] [address] Intensive Care Medicine Specialist (Ambulatory) REGISTERED NURSE 07/15/24 09/15/24 documented as of this encounter
--- OUTSIDE RECORDS SUMMARY | 2024-10-31 18:19 | XMS_ITS | Encounter Summary ---
Author Organization [facility] Address [facility] [place] [address] Care Team Providers Care General Operations Agent Name Role Phone Lisset Luis [facility] Primary Care Provider + Raymond Brunson MD Unavailable Unavail able Gabriele Doshi MD Unavailable [phone] Lynn Vanegas RN Unavailable [phone] Encounter Details Date Type Department Care Team (Late st Contact Info) Description 07/03/[address] [facility] Medical Group Family & Internal Medicine [facility] [phone] [place] [address] Lisset Luis, [address], [address] [place] [address] Meds Social History Tobacco Use [...] Sex Assigned at Female 06/22/2024 11:23 AM SPECIAL FORCES SENIOR SERGEANT Legal Sex Female 8:19 PM CDT Gender Identity Female 07/22/2024 3:29 PM SPECIAL FORCES SENIOR SERGEANT Sexual Orientation Straight 07/22/2024 3: 29 PM SPECIAL FORCES SENIOR SERGEANT documented as of this encounter Functional Status [...] Haynes - 07/14/2023 10:07 AM CST Noted. IAL FORCES SENIOR SERGEANT * Brooke Aldridge NP - 07/14/2023 9:58 AM CST [email or web address] IAL FORCES SENIOR SERGEANT * JENI Haynes - 07/06/2023 10:42 AM CST Our records indicate she should be taking all the listed medications. Reviewing her cardiology notefrom the last visit, they wanted her to continue clonidine, spironolactone, and furosemide. Labetalol was not commented on, however, if they did not specifically tell her to stop this, she should continue it. I would recommend confirming with the health promotion coordinator's office if there is concern. Please have her schedule an appointment with me. I know she has been sick with COVID19 and has had several specialist appt with medication changes recently. IAL FORCES SENIOR SERGEANT * Jackie Hall RN - 07/06/2023 10:21 AM CST Please advise. Last seen by you in 02/2023-no upcoming appt. IAL FORCES SENIOR SERGEANT documented in this encounter Plan of Treatment Upcoming Encounters Date Type Department Care Team (Late st Contact Info) Description 12/12/2024 11:00 AM CDT Office Visit [facility] Medical Group Family & Internal Medicine [facility] [address] [place] [address] [place] [address] [facility] [address] [place] [address] documented as of this encounter Visit Diagnoses Not on filedocumented in this encounter Additional Health Concerns Infection Onset Date Last Indicated Resolved Time COVID-19 Rule Out 06/27/2024 06/27/2024 06/27/2024 2:39 PM SPECIAL FORCES SENIOR SERGEANT Respiratory Rule Out 07/14/2024 07/14/2024 025 12:08 AM SPECIAL FORCES SENIOR SERGEANT Respiratory Rule Out 07/26/2024 07/26/2024 025 9:16 PM CDT Tuberculosis Rule-Out 07/29/2024 07/29/20242024 6:47 AM CDT documented as of this encounter Care Teams General Operations Agent Relationship Specialty Start Date End Date Lisset Luis FNP-BC [address] [facility], [address] [place] [address] PCP - General Nurse Practitioner Family 01/27/23 11/25/24 [place] [address] [facility], [address] [place] [address] CARDIOVASCULAR DISEASE 06/04/23 Gabriele Doshi MD [address] [facility] [address] [place] [address] Referring Physician NEPHROLOGY 06/04/23 Lynn Vanegas, RN [address] [place] [address] Worm Picker (Ambulatory) REGISTERED NURSE 07/15/24 09/15/24 documented as of this encounter
--- OUTSIDE RECORDS SUMMARY | 2024-10-31 18:19 | XMS_ITS | Encounter Summary ---
Author Organization [facility] Address [facility] [place] [address] Care Team Providers Care Security Chief Museum Name Role Phone Lisset Luis [facility] Primary Care Provider + Raymond Brunson MD Unavailable Unavail able Gabriele Doshi MD Unavailable [phone] Lynn Vanegas RN Unavailable [phone] Encounter Details Date Type Department Care Team (Late st Contact Info) Description 06/04/2023 Litographst Message Enc [facility] Medical Group Family & Internal Medicine [address] [address] Lisset Luis, [address], [address] [place] [address] Doppler Social History Tobacco Use [...] Sex Assigned at Female 06/22/2024 11:23 AM POLICY AND PLANNING MANAGER Legal Sex Female 8:19 PM CDT Gender Identity Female 07/22/2024 3:29 PM POLICY AND PLANNING MANAGER Sexual Orientation Straight 07/22/2024 3: 29 PM POLICY AND PLANNING MANAGER documented as of this encounter Functional [...] Office Visit [facility] Medical Group Family & Internal Medicine [facility] [phone] [place] [phone] Christine Plasencia NP [address] [place] [address] documented as of this encounter Visit Diagnoses Not on filedocumented in this encounter Additional Health Concerns Infection Onset Date Last Indicated Resolved Time COVID-19 Rule Out 06/27/2024 06/27/2024 06/27/2024 2:39 PM POLICY AND PLANNING MANAGER Respiratory Rule Out 07/14/2024 07/14/2024 025 12:08 AM POLICY AND PLANNING MANAGER Respiratory Rule Out 07/26/2024 07/26/2024 025 9:16 PM CDT Tuberculosis Rule-Out 07/29/2024 07/29/20242024 6:47 AM CDT documented as of this encounter Care Teams Security Chief Museum Relationship Specialty Start Date End Date Lisset Luis, [facility]- [address], [address] [place] [address] PCP - General Nurse Practitioner Family 01/27/23 11/25/24 [place] [address], [address] [place] [address] CARDIOVASCULAR DISEASE 06/04/23 Gabriele Doshi MD [address] [facility] [address] [place] [address] Referring Physician NEPHROLOGY 06/04/23 Lynn Vanegas, RN [address] [place] [address] Pizza Cook (Ambulatory) REGISTERED NURSE 07/15/24 09/15/24 documented as of this encounter
--- OUTSIDE RECORDS SUMMARY | 2024-10-31 18:19 | XMS_ITS | Encounter Summary ---
Author Organization [facility] Address [facility] [place] [address] Care Team Providers Care Maid Supervisor Name Role Phone Lisset Luis [facility] Primary Care Provider + Raymond Brunson MD Unavailable Unavail able Gabriele Doshi MD Unavailable [phone] Encounter Details Date Type Department Care Team (Late st Contact Info) Description 10/24/2024 MyCOmnia Mediat Message Enc [facility] Medical Group Family & Internal Medicine [address] [address] Lisset Luis, [address], [address] [place] [address] Glucose Social History Tobacco Use Types Packs/Day [...] doctor or pharmacy? Never 07/22/[address] [facility] Utilities Answer Date Recorded In the past 12 months has e [employer], oil, or water [employer] threatened to shut off services in your [...] often do you attend chur ch or mandaeism services? 1 to 4 times per year 07/22/2024 Do you belong to any clubs o r organizations such as episcopal groups, unions, fraternal or athletic groups, or [...] Recorded Patient Health Questionnaire-2 Score 2 07/22/2024 [facility] - Occupational [...] any time in the past 12 m [facility], were you homeless or living in a long term (including now)? No 07/28/2024 Comments No Sex and Gender Information Value Date Recorded Sex Assigned at Female 06/22/2024 11:23 AM LAND LEASING INFORMATION CLERK Legal Sex Female 8:19 PM CDT Gender Identity Female 07/22/2024 3:29 PM LAND LEASING INFORMATION CLERK Sexual Orientation Straight 07/22/2024 3: 29 PM LAND LEASING INFORMATION CLERK documented as of this encounter Functional [...] Description 12/12/2024 11:00 AM CDT Office Visit [facility] Medical Group Family & Internal Medicine - [place] [address] [place] [address] [place] [address] [facility] [address] [place] [address] documented as of this encounter Visit Diagnoses Not on filedocumented in this encounter Care Teams Maid Supervisor Relationship Specialty Start Date End Date Lisset Luis FNP-BC [address] [facility], [address] [place] [address] PCP - General Nurse Practitioner Family 01/27/23 7/06/11 [place] [address] [facility], [address] [place] [address] CARDIOVASCULAR DISEASE 06/04/23 Gabriele Doshi MD [address] [facility] [address] [place] [address] Referring Physician NEPHROLOGY 06/04/23 documented as of this encounter
--- OUTSIDE RECORDS SUMMARY | 2024-10-31 18:19 | XMS_ITS | Encounter Summary ---
Author Organization [facility] Address [facility] [place] [address] Care Team Providers Care Slate Trimmer Name Role Phone Lisset Luis [facility] Primary Care Provider + Raymond Brunson MD Unavailable Unavail able Gabriele Doshi MD Unavailable [phone] Lynn Vanegas RN Unavailable [phone] Encounter Details Date Type Department Care Team (Late st Contact Info) Description 08/04/2024 Dollar Shave Clubt Message Enc [facility] Medical Group Family & Internal Medicine [facility] [address] [place] [address] Lisset Luis, [address], [address] [place] [address] hospital bed Social History Tobacco [...] from your doctor or pharmacy? Never 07/22/2024 [facility] Utilities Answer Date Recorded In [...] often do you attend chur ch or evangelical services? 1 to 4 times per year 07/22/2024 Do you belong to any clubs o r organizations such as restorationist groups, unions, fraternal or athletic groups, or [...] Recorded Patient Health Questionnaire-2 Score 2 07/22/2024 [facility] - Occupational Stress Questionnaire Answer [...] any time in the past 12 m [facility], were you homeless or living in a half-way (including now)? No 07/28/2024 Comments No Sex and Gender Information Value Date Recorded Sex Assigned at Female 06/22/2024 11:23 AM COMPLIANCE LEAD Legal Sex Female 8:19 PM CDT Gender Identity Female 07/22/2024 3:29 PM COMPLIANCE LEAD Sexual Orientation Straight 07/22/2024 3: 29 PM COMPLIANCE LEAD documented as of this encounter Functional Status [...] Description 12/12/2024 11:00 AM CDT Office Visit [facility] Medical Group Family & Internal Medicine - [place] [address] [place] [address] Christine Plasencia, SURVEYING TEACHER [address] [facility] [address] [place] [address] documented as of this encounter Visit Diagnoses Not on filedocumented in this encounter Care Teams Slate Trimmer Relationship Specialty Start Date End Date Lisset Luis, [employer]- [address] [facility], [address] [place] [address] PCP - General Nurse Practitioner Family 01/27/23 11/25/24 [place] [address] [facility], [address] [place] [address] CARDIOVASCULAR DISEASE 06/04/23 Gabriele Doshi MD [address] [facility] [address] [place] [address] Referring Physician NEPHROLOGY 06/04/23 Lynn Vanegas, RN [address] [place] [address] Spanish Literature Professor (Ambulatory) REGISTERED NURSE 07/15/24 09/15/24 documented as of this encounter
--- OUTSIDE RECORDS SUMMARY | 2024-10-31 18:19 | XMS_ITS | Encounter Summary ---
Author Organization [facility] Address [facility] [place] [address] Care Team Providers Care Dusting And Brushing Machine Operator Name Role Phone Lisset Luis [facility] Primary Care Provider + Raymond Brunson MD Unavailable Unavail able Gabriele Doshi MD Unavailable [phone] Lynn Vanegas RN Unavailable [phone] Encounter Details Date Type Department Care Team (Late st Contact Info) Description 12/25/2023 MyCIntellihot Green Technologiest Message Enc [facility] Medical Group Family & Internal Medicine [facility] [address] [place] [address] Lisset Luis, [address], [address] [place] [address] urine culture Social History Tobacco [...] Sex Assigned at Female 06/22/2024 11:23 AM PHOTOSTAT OPERATOR HELPER Legal Sex Female 8:19 PM CDT Gender Identity Female 07/22/2024 3:29 PM PHOTOSTAT OPERATOR HELPER Sexual Orientation Straight 07/22/2024 3: 29 PM PHOTOSTAT OPERATOR HELPER documented as of this encounter Functional Status [...] intake and try to control sugars * Jackei Hall RN - 12/28/2023 10:46 AM CDT Please advise. documented in this encounter Plan of Treatment Upcoming Encounters Date Type Department Care Team (Late st Contact Info) Description 12/12/2024 11:00 AM CDT Office Visit [facility] Medical Group Family & Internal Medicine - [place] [address] [place] [address] [place] [address] [facility] [address] [facility] [place] [address] documented as of this encounter Visit Diagnoses Not on filedocumented in this encounter Additional Health Concerns Infection Onset Date Last Indicated Resolved Time COVID-19 Rule Out 06/27/2024 06/27/2024 06/27/2024 2:39 PM PHOTOSTAT OPERATOR HELPER Respiratory Rule Out 07/14/2024 07/14/2024 025 12:08 AM PHOTOSTAT OPERATOR HELPER Respiratory Rule Out 07/26/2024 07/26/2024 025 9:16 PM CDT Tuberculosis Rule-Out 07/29/2024 07/29/20242024 6:47 AM CDT documented as of this encounter Care Teams Dusting And Brushing Machine Operator Relationship Specialty Start Date End Date Lisset Luis FNP-BC [address] [facility], [address] [address] PCP - General Nurse Practitioner Family 01/27/23 11/25/24 [place] [address] [facility], [address] [address] CARDIOVASCULAR DISEASE 06/04/23 Gabriele Doshi MD [address] [place], [place] [address] Referring Physician NEPHROLOGY 06/04/23 Lynn Vanegas RN [address] [place] [address] Stuffing Machine Operator (Ambulatory) REGISTERED NURSE 07/15/24 09/15/24 documented as of this encounter
--- OUTSIDE RECORDS SUMMARY | 2024-10-31 18:19 | XMS_ITS | Encounter Summary ---
Author Organization [facility] Address [facility] [place] [address] Care Team Providers Care Tuyere Fitter Name Role Phone Lisset Luis [facility] Primary Care Provider + Raymond Brunson MD Unavailable Unavail able Gabriele Doshi MD Unavailable [phone] Lynn Vanegas RN Unavailable [phone] Encounter Details Date Type Department Care Team (Late st Contact Info) Description 12/02/2023 MyCAdesso Solutionst Message Enc [facility] Medical Group Family & Internal Medicine [facility] [address] [place] [address] Lisset Luis, [address], [address] [place] [address] [facility] referral Social History Tobacco Use Types [...] in a snf (including now)? No 02/02/2023 Comments No Sex and Gender Information Value Date Recorded Sex Assigned at Female 06/22/2024 11:23 AM SENIOR ANALYST MARKET INTELLIGENCE Legal Sex Female 8:19 PM CDT Gender Identity Female 07/22/2024 3:29 PM SENIOR ANALYST MARKET INTELLIGENCE Sexual Orientation Straight 07/22/2024 3: 29 PM SENIOR ANALYST MARKET INTELLIGENCE documented as of this encounter Functional Status [...] MA - 12/03/2023 3:17 PM CDT Referral [facility] Department of Neurology [address] [place] [address] Movement Disorder's clinic documented in this encounter Plan of Treatment Upcoming Encounters Date Type Department Care Team (Late st Contact Info) Description 12/12/2024 11:00 AM CDT Office Visit [facility] Medical Group Family & Internal Medicine [address] [address] Christine Plasencia NP [address] [place] [address]-651-2810 (Work) documented as of this encounter Visit Diagnoses Not on filedocumented in this encounter Additional Health Concerns Infection Onset Date Last Indicated Resolved Time COVID-19 Rule Out 06/27/2024 06/27/2024 06/27/2024 2:39 PM SENIOR ANALYST MARKET INTELLIGENCE Respiratory Rule Out 07/14/2024 07/14/2024 025 12:08 AM SENIOR ANALYST MARKET INTELLIGENCE Respiratory Rule Out 07/26/2024 07/26/2024 025 9:16 PM CDT Tuberculosis Rule-Out 07/29/2024 07/29/20242024 6:47 AM CDT documented as of this encounter Care Teams Tuyere Fitter Relationship Specialty Start Date End Date Lisset Luis, [facility]- [address], [address] [place] [address] PCP - General Nurse Practitioner Family 01/27/23 11/25/24 [place] [address] [facility], [address] [place] [address] CARDIOVASCULAR DISEASE 06/04/23 Gabriele Doshi MD 68[address] [facility] [address] [place] [address] Referring Physician NEPHROLOGY 06/04/23 Lynn Vanegas RN [address] [place] [address] Solar Hot Water Installer (Ambulatory) REGISTERED NURSE 07/15/24 09/15/24 documented as of this encounter
--- OUTSIDE RECORDS SUMMARY | 2024-10-31 18:19 | XMS_ITS | Encounter Summary ---
Author Organization [facility] Address [facility] [place] [address] Care Team Providers Care Drafter Mechanical Name Role Phone Lisset Luis [facility] Primary Care Provider + Raymond Brunson MD Unavailable Unavail able Gabriele Doshi MD Unavailable [phone] Lynn Vanegas RN Unavailable [phone] Encounter Details Date Type Department Care Team (Late st Contact Info) Description 06/24/2024 MyCCareSimplyt Message Enc [facility] Medical Group Family & Internal Medicine [facility] [address] [place] [address] Lisset Luis, [address], [address] [place] [address] my mom Social History Tobacco Use Types Packs/Day Years Used Date Smoking Tobacco: Never Smokeless Tobacco: Never Alcohol Use Standard Drinks/Week Comments Not Currently 0 (1 standard drink = 0.6 oz pur e alcohol) [facility] Utilities Answer Date Recorded In the past 12 months has [employer] electric, gas, oil, or water company threatened [...] place to sleep or slept in a custodial (including now)? No 02/02/2023 Housing Stability Vital Sign Answer Alex e Recorded In the last 12 months, was t here a time when you were not able to pay the mortgage or rent on time? No 06/23/2024 In the past 12 months, how m any times have you moved where you were living? 0 06/23/2024 At any time in the past 12 m [facility], were you homeless or living in a custodial (including now)? No 06/23/2024 Comments No Sex and Gender Information Value Date Recorded Sex Assigned at Female 06/22/2024 11:23 AM SURGICAL TECH Legal Sex Female 8:19 PM CDT Gender Identity Female 07/22/2024 3:29 PM SURGICAL TECH Sexual Orientation Straight 07/22/2024 3: 29 PM SURGICAL TECH documented as of this encounter Functional Status [...] Description 12/12/2024 11:00 AM CDT Office Visit [facility] Medical Group Family & Internal Medicine [address] [address] Christine Plasencia, WATER METER MECHANIC [address] [place] [address] documented as of this encounter Visit Diagnoses Not on filedocumented in this encounter Additional Health Concerns Infection Onset Date Last Indicated Resolved Time COVID-19 Rule Out 06/27/2024 06/27/2024 06/27/2024 2:39 PM SURGICAL TECH Respiratory Rule Out 07/14/2024 07/14/2024 025 12:08 AM SURGICAL TECH Respiratory Rule Out 07/26/2024 07/26/2024 025 9:16 PM CDT Tuberculosis Rule-Out 07/29/2024 07/29/20242024 6:47 AM CDT documented as of this encounter Care Teams Drafter Mechanical Relationship Specialty Start Date End Date Lisset Luis, [facility]- [address], [address] [place] [address] PCP - General Nurse Practitioner Family 01/27/23 11/25/24 [place] [address] [address], [address] [place] [address] CARDIOVASCULAR DISEASE 06/04/23 Gabriele Doshi MD [address] [place] [address] Referring Physician NEPHROLOGY 06/04/23 Lynn Vanegas, RN [address] [place] [address] Hot Mill Supervisor (Ambulatory) REGISTERED NURSE 07/15/24 09/15/24 documented as of this encounter
--- OUTSIDE RECORDS SUMMARY | 2024-10-31 18:19 | XMS_ITS | Encounter Summary ---
Author Organization [facility] Address [facility] [place] [address] Care Team Providers Care General Manager Farm Name Role Phone Lisset Luis [facility] Primary Care Provider + Raymond Brunson MD Unavailable Unavail able Gabriele Doshi MD Unavailable [phone] Lynn Vanegas RN Unavailable [phone] Encounter Details Date Type Department Care Team (Late st Contact Info) Description 05/06/2023 GrupHediyet Message Enc [facility] Medical Group Family & Internal Medicine [facility] [address] [place] [address] Lisset Luis, [address], [address] [place] [address] Pain Social History Tobacco Use [...] Sex Assigned at Female 06/22/2024 11:23 AM CAN FILLING ROOM SWEEPER Legal Sex Female 8:19 PM CDT Gender Identity Female 07/22/2024 3:29 PM CAN FILLING ROOM SWEEPER Sexual Orientation Straight 07/22/2024 3: 29 PM CAN FILLING ROOM SWEEPER documented as of this encounter Functional Status [...] RN - 05/07/2023 3:42 PM CST noted FILLING ROOM SWEEPER documented in this encounter Plan of Treatment Upcoming Encounters Date Type Department Care Team (Late st Contact Info) Description 12/12/2024 11:00 AM CDT Office Visit [facility] Medical Group Family & Internal Medicine [facility] [address] [place] [address] [place] [address] [facility] [address] [place] [address] documented as of this encounter Visit Diagnoses Not on filedocumented in this encounter Additional Health Concerns Infection Onset Date Last Indicated Resolved Time COVID-19 Rule Out 06/27/2024 06/27/2024 06/27/2024 2:39 PM CAN FILLING ROOM SWEEPER Respiratory Rule Out 07/14/2024 07/14/2024 025 12:08 AM CAN FILLING ROOM SWEEPER Respiratory Rule Out 07/26/2024 07/26/2024 025 9:16 PM CDT Tuberculosis Rule-Out 07/29/2024 07/29/20242024 6:47 AM CDT documented as of this encounter Care Teams General Manager Farm Relationship Specialty Start Date End Date Lisset Luis, [employer]- [address], [address] [place] [address] PCP - General Nurse Practitioner Family 01/27/23 11/25/24 [place] [address] [address], [address] [place] [address] CARDIOVASCULAR DISEASE 06/04/23 Gabriele Doshi MD [address] [place] [address] Referring Physician NEPHROLOGY 06/04/23 Lynn Vanegas, RN [address] [place] [address] Biofuels Technology Manager (Ambulatory) REGISTERED NURSE 07/15/24 09/15/24 documented as of this encounter
--- OUTSIDE RECORDS SUMMARY | 2024-10-31 18:19 | XMS_ITS | Encounter Summary ---
Author Organization [facility] Address [facility] [place] [address] Care Team Providers Care Certified Nursing Attendant Name Role Phone Lisset Luis [facility] Primary Care Provider + Raymond Brunson MD Unavailable Unavail able Gabriele Doshi MD Unavailable [phone] Lynn Vanegas RN Unavailable [phone] Encounter Details Date Type Department Care Team (Late st Contact Info) Description 08/20/2023 Reva Systemst Message Enc [facility] Medical Group Family & Internal Medicine [facility] [address] [place] [address] Lisset Luis, [address], [address] [place] [address] Zoloft Social History Tobacco Use [...] Sex Assigned at Female 06/22/2024 11:23 AM KITCHEN UTILITY ASSOCIATE Legal Sex Female 8:19 PM CDT Gender Identity Female 07/22/2024 3:29 PM KITCHEN UTILITY ASSOCIATE Sexual Orientation Straight 07/22/2024 3: 29 PM KITCHEN UTILITY ASSOCIATE documented as of this encounter Functional [...] Description 12/12/2024 11:00 AM CDT Office Visit [facility] Medical Group Family & Internal Medicine [facility] [address] [place] [address] [place] [address] [place] [address] documented as of this encounter Visit Diagnoses Not on filedocumented in this encounter Additional Health Concerns Infection Onset Date Last Indicated Resolved Time COVID-19 Rule Out 06/27/2024 06/27/2024 06/27/2024 2:39 PM KITCHEN UTILITY ASSOCIATE Respiratory Rule Out 07/14/2024 07/14/2024 025 12:08 AM KITCHEN UTILITY ASSOCIATE Respiratory Rule Out 07/26/2024 07/26/2024 025 9:16 PM CDT Tuberculosis Rule-Out 07/29/2024 07/29/20242024 6:47 AM CDT documented as of this encounter Care Teams Certified Nursing Attendant Relationship Specialty Start Date End Date Lisset Luis, [facility]- [address], [address] [place] [address] PCP - General Nurse Practitioner Family 01/27/23 11/25/24 [place] [address] [address], [address] [place] [address] CARDIOVASCULAR DISEASE 06/04/23 Gabriele Doshi MD [address] [place] [address] Referring Physician NEPHROLOGY 06/04/23 Lynn Vanegas, RN [address] [place] [address] Regulatory Scientist (Ambulatory) REGISTERED NURSE 07/15/24 09/15/24 documented as of this encounter
--- OUTSIDE RECORDS SUMMARY | 2024-10-31 18:19 | XMS_ITS | Encounter Summary ---
Author Organization [facility] Address [facility] [place] [address] Care Team Providers Care Manufacturing Quality Technician Name Role Phone Lisset Luis [facility] Primary Care Provider + Raymond Brunson MD Unavailable Unavail able Gabriele Doshi MD Unavailable [phone] Lynn Vanegas RN Unavailable [phone] Encounter Details Date Type Department Care Team (Late st Contact Info) Description 10/13/2023 MyCReacciónt Message Enc [facility] Medical Group Family & Internal Medicine [facility] [address] [place] [address] Lisset Luis, [address], [address] [place] [address] Physical therapy Social History Tobacco [...] a care home (including now)? No 02/02/2023 Comments No Sex and Gender Information Value Date Recorded Sex Assigned at Female 06/22/2024 11:23 AM BULB SORTER Legal Sex Female 8:19 PM CDT Gender Identity Female 07/22/2024 3:29 PM BULB SORTER Sexual Orientation Straight 07/22/2024 3: 29 PM BULB SORTER documented as of this encounter Functional Status [...] Description 12/12/2024 11:00 AM CDT Office Visit [facility] Medical Group Family & Internal Medicine [facility] [address] [place] [address] [place] [address] [place] [address] documented as of this encounter Visit Diagnoses Not on filedocumented in this encounter Additional Health Concerns Infection Onset Date Last Indicated Resolved Time COVID-19 Rule Out 06/27/2024 06/27/2024 06/27/2024 2:39 PM BULB SORTER Respiratory Rule Out 07/14/2024 07/14/2024 025 12:08 AM BULB SORTER Respiratory Rule Out 07/26/2024 07/26/2024 025 9:16 PM CDT Tuberculosis Rule-Out 07/29/2024 07/29/20242024 6:47 AM CDT documented as of this encounter Care Teams Manufacturing Quality Technician Relationship Specialty Start Date End Date Lisset Luis, [facility]- [address], [address] [place] [address] PCP - General Nurse Practitioner Family 01/27/23 11/25/24 [place] [address] [address], [address] [place] [address] CARDIOVASCULAR DISEASE 06/04/23 Garbiele Doshi MD [address] [place] [address] Referring Physician NEPHROLOGY 06/04/23 Lynn Vanegas, RN [address] [place] [address] Ceo & Founder (Ambulatory) REGISTERED NURSE 07/15/24 09/15/24 documented as of this encounter
[2024-10-31 18:25] VITALS: BP 143/70; PULSE 83; RESP 12; TEMP 36.6; O2SAT 98
[2024-10-31 18:37] LABS: Fractional Inspired Oxygen 21 %; HCO3 VBG 26.5 mEq/l (24.0-30.0); PCO2 VBG 33.1 mmHg (42.0-48.0)
[2024-10-31 18:40] LABS: Device ROOM AIR; PO2 VBG < 27.0 mmHg (35.0-45.0); pH VBG 7.521 (7.300-7.400)
[2024-10-31 18:42] LABS: Basophils Percent Auto 0.4 % (0.2-1.2); Eosinophils Percent Auto 0.4 % (0-4.4); Hematocrit 37.3 % (37.0-47.0); Hemoglobin 12.6 g/dL (12.0-15.0); Immature Granulocyte Absolute 0.06 K/mm3 (0.00-0.031); Immature Granulocyte Percent A 0.6 % (0-0.5); Lymphocytes Absolute Auto 2.57 K/mm3 (0.9-3.2); Lymphocytes Percent Auto 27.7 % (18.3-44.2); Mean Corpuscular HGB Conc 33.8 g/dl (32-36); Mean Corpuscular Hemoglobin 26.8 pg (26-34); Mean Corpuscular Volume 79.4 fl (80-100); Mean Platelet Volume 9.2 fl (7.4-10.4); Monocytes Absolute Auto 0.9 K/mm3 (0.1-0.6); Monocytes Percent Auto 9.4 % (2.6-8.5); Neutrophils Absolute Auto 5.7 K/mm3 (1.3-6.7); Neutrophils Percent Auto 61.5 % (45.5-73.1); Platelet Count Result 281 k/mm3 (150-375); Red Cell Distribution Width 15.4 % (11.5-14.5); White Blood Count 9.3 K/mm3 (4.5-10.0)
[2024-10-31 18:56] LABS: Alanine Aminotransferase 26 U/L (6-35); Albumin Level 4.5 g/dL (3.5-5.1); Alkaline Phosphatase 94 U/L (38-126); Anion Gap 12 mmol/L (4-12); Aspartate Amino Transferase 32 U/L (14-36); Bilirubin,Total 0.6 mg/dL (0.2-1.3); Blood Urea Nitrogen 54 mg/dL (7-17); Calcium 9.9 mg/dL (8.4-10.2); Carbon Dioxide 26 mmol/L (22-30); Chloride 96 mmol/L (98-107); Estimated CRCL calculation 19 ml/min; Estimated Glomerular Filt Rate 23; Glucose 259 mg/dL (65-110); Potassium 3.9 mmol/L (3.4-5.0); Sodium 134 mmol/L (137-145); Total Protein 8.1 g/dL (6.3-8.2)
[2024-10-31] MEDS: LACTATED RINGERS 1,000 ML 999 ML IV CONT ×2 (19:00→19:01)
[2024-10-31 19:02] LABS: Beta-Hydroxybutyrate/Acetoacetate 0.12 mmol/L (0.02-0.27)
--- NOTE | 2024-10-31 19:03 | PC.NURSE ---
Pt states unable to urinate at this time
[2024-10-31 19:13] VITALS: BP 143/70; PULSE 83; RESP 15; O2SAT 100
--- NOTE | 2024-10-31 19:20 | PC.NURSE ---
Assumed care of patient after receiving bedside report from YAZAN Garcia @ 6090 Patient/family updated and patient taken to bathroom at this time
[2024-10-31 20:00] VITALS: BP 164/84; PULSE 81; RESP 12; O2SAT 100
[2024-10-31 21:09] LABS: Add Urine Microscopic? YES; Appearance Urine Cloudy (Clear); Bacteria Urine 4+ /hpf; Bilirubin Urine Negative (Negative); Blood Urine Negative (Negative); Color Urine Yellow (Yellow); Glucose Urine UA Trace mg/dL (Negative); Ketones Urine Negative (Negative); Leukocyte Esterase Ur 3+ LEU/UL (Negative); Nitrate Urine Negative (Negative); Protein Urine Negative (Negative); RBC Urine 0-2 /hpf (0-2); Specific Grav Ur 1.012 (1.001-1.035); Squamous Epithelial Cell Urine Occasional /hpf (Few); Urobilinogen Urine 0.2 mg/dL (<2.0); WBC Urine >100 /hpf (0-3); pH Urine 6.5 (5.0-9.0)
--- NOTE | 2024-10-31 21:31 | ED.RECABL ---
HPI - Recheck/Abnormal Lab/Rx General Chief Complaint: Recheck/Abnormal Lab/Rx Stated Complaint: high BS Time Seen by Provider: 10/31/24 18:03 History of Present Illness HPI narrative: 84-year-old female presenting to the emergency department for elevated blood sugar readings, dehydration, polyuria, polydipsia and urgency. She states her blood your sugars have been elevated for the last week or even longer. She recently moved into an assisted living facility 3 weeks ago and she has not been manage her blood sugars very well. She takes Humalog and Lantus. States her blood sugars have been ranging in the 300-500 range. She reports mild diarrhea, excessive thirst and urination. Denies any lack of appetite, chest pain, abdominal pain, fever, chills. No lightheadedness or dizziness. Her blood sugar and urgent care today was 280. History of chronic kidney disease and prior CVA. No history of DKA. Related Data Home Medications ?Medication ?Instructions ?Recorded ?Confirmed ?Last Taken ?Type clonidine HCl 0.2 mg tablet mg 05/04/23 10/15/23 Unknown History furosemide 40 mg tablet mg 05/04/23 10/15/23 Unknown History insulin regular hum U-500 conc 500 unit subcut 05/04/23 10/15/23 Unknown History unit/mL(3 mL) subcut pen (Humulin R U-500 (Conc) Insulin Kwikpen) ropinirole 0.25 mg tablet mg 05/04/23 10/15/23 Unknown History semaglutide 1 mg/dose (4 mg/3 mL) mg subcut 05/04/23 10/15/23 Unknown History subcutaneous pen injector (Ozempic) sertraline 50 mg tablet mg 05/04/23 10/15/23 Unknown History simvastatin 10 mg tablet mg 05/04/23 10/15/23 Unknown History spironolactone 25 mg tablet mg 05/04/23 10/15/23 Unknown History carvedilol 25 mg tablet (Coreg) 25 mg PO BID 10/31/24 10/31/24 Unknown History cholecalciferol (vitamin D3) 1,250 1,250 mcg PO ONCE 10/31/24 10/31/24 Unknown History mcg (50,000 unit) capsule ferrous sulfate 325 mg (65 mg 325 mg PO DAILY 10/31/24 10/31/24 Unknown History iron) tablet hydrocodone 5 mg-acetaminophen 325 1 tablet PO Q12H 10/31/24 10/31/24 Unknown History mg tablet insulin glargine 100 unit/mL (3 2 unit subcut QPM 10/31/24 10/31/24 Unknown History mL) subcutaneous pen (Lantus Solostar U-100 Insulin) melatonin 10 mg capsule 10 mg PO DAILY 10/31/24 10/31/24 Unknown History omeprazole 20 mg capsule,delayed 20 mg PO DAILY 10/31/24 10/31/24 Unknown History release terazosin 2 mg capsule 2 mg PO HS 10/31/24 10/31/24 Unknown History Allergies Allergy/AdvReac Type Severity Reaction Status Date / Time codeine Allergy Mild Unknown Verified 10/31/24 18:36 Penicillins Allergy Mild Unknown Verified 10/31/24 18:36 morphine Allergy Hives Verified 10/31/24 18:36 amlodipine (From Norvasc) AdvReac Mild Unknown Verified 10/31/24 18:36 atorvastatin AdvReac Mild Unknown Verified 10/31/24 18:36 erythromycin base AdvReac Mild Unknown Verified 10/31/24 18:36 Review of Systems Review of Systems: As reviewed above in [facility] Past Medical History Medical History Gout Spinal cord stimulator status High cholesterol Diabetes Social History Social History Smoking status: Never smoker Alcohol intake: unknown Substance use: unknown Do You Feel Safe in your Home?: Yes Lack of Transportation: No Lack of Food: Never True Concerned About Future Housing: No Difficulty Paying Gas/Electric Bills: No Difficulty Paying for Meds: No Currently Unemployed: No Education: Grade School Difficulty w/ Childcare or Family Care: No Occupation/Education: retired Gender identity (if verbalized by the patient): Female Exam Narrative: GENERAL: [Well-appearing, well-nourished, and in no acute distress.] HEAD: [Normocephalic, atraumatic.] EYES: [PERRLA and EOMI.] ENT: Nares clear, no rhinorrhea or epistaxis. Mucous membranes very dry. NECK: Supple. CHEST: [Clear to auscultation. No respiratory distress.] HEART: [Regular rate and rhythm]. No murmur heard. [Normal peripheral pulses.] ABDOMEN: [Soft, nondistended], [nontender], [No rigidity or guarding] EXTREMITIES: Normal range of motion. [No edema.] SKIN: Warm, dry, no rash. NEURO: [No focal deficits]. Alert and oriented [x3.] PSYCH: [Normal mood and affect.] Course Vital Signs Vital signs: Vital Signs Temperature 36.6 C 10/31/24 16:57 Pulse Rate 70 10/31/24 16:57 Respiratory Rate 18 10/31/24 16:57 Blood Pressure 133/56 L 10/31/24 16:57 Pulse Oximetry 100 10/31/24 16:57 Oxygen Delivery Room Air 10/31/24 16:57 Temperature 36.6 C 10/31/24 18:25 Pulse Rate 83 10/31/24 19:13 Respiratory Rate 15 10/31/24 19:13 Blood Pressure 143/70 H 10/31/24 19:13 Pulse Oximetry 100 10/31/24 19:13 Oxygen Delivery Room Air 10/31/24 18:25 MDM - Recheck/Abnormal Lab/Rx MDM Narrative Medical decision making narrative: 84-year-old female with history of insulin-dependent diabetes presenting with elevated blood sugar readings for last few weeks. She controls with home with Humalog 50 units q.a.m. and Lantus 14 units t.i.d. a.c. with meals. She states her sugars have been high in the 300-500 range recently and she is symptomatic including polyuria, polydipsia, urgency. Denies any falls, injury, abdominal pain, fever, chills, chest pain shortness a breath. She is very dry examination with desiccated mucous membrane and dry tongue. She is not tachycardic or hypoxic with normal blood pressure and vital signs otherwise. Suspicion presently is for dehydration from uncontrolled diabetes, other potential diabetic emergency such as DKA or HHS or possible but less likely given her normal mental status and breathing pattern without any deep labored respirations. Urinary tract infection pneumonia also possible to trigger this. Workup ordered including a VBG, beta hydroxybutyrate, CBC, CMP, lipase, urinalysis, chest x-ray. She was given 2 L of LR for fluid resuscitation. Workup shows no leukocytosis or anemia. Normal platelet count. Blood gas shows tachypnea with a pH is 7.5, pCO2 of 33, bicarb of 26.5. No signs of acidosis. Electrolytes show BUN and creatinine are elevated indicative of an MIGUEL ÁNGEL, electrolytes otherwise reassuring without any hypokalemia. Glucose of 259. A1c of 9.0. Beta hydroxybutyrate and ketones are negative. Normal LFTs. Urinalysis shows signs of an infection with bacteria and white count which could trigger her symptomatology as well. She was given Rocephin for this. Chest x-ray without any acute focal findings. Patient hydrated and re-evaluated. Discussed admission to the hospital at this time and family and patient were comfortable with the plan. She was put on maintenance infusion fluids and antibiotics as well as admission orders being placed. Spoke to the hospitalist for admission and she was accepted to the med surge unit. Family and patient comfortable the admission. Medical Records Attestation: I reviewed the patient's medical records. Lab Data Attestation: I reviewed the patient's lab results. 10/31/24 18:34 10/31/24 18:34 Labs: Lab Results 10/31/24 10/31/24 10/31/24 Range/Units 17:01 18:34 20:57 WBC 9.3 (4.5-10.0) K/mm3 RBC 4.70 (4.2-5.4) M/mm3 Hgb 12.6 (12.0-15.0) g/dL Hct 37.3 (37.0-47.0) % MCV 79.4 L (80-100) fl MCH 26.8 (26-34) pg MCHC 33.8 (32-36) g/dl RDW 15.4 H (11.5-14.5) % Plt Count 281 (150-375) k/mm3 MPV 9.2 (7.4-10.4) fl Immature Gran % (Auto) 0.6 H (0-0.5) % Neut % (Auto) 61.5 (45.5-73.1) % Lymph % (Auto) 27.7 (18.3-44.2) % [place] % (Auto) 9.4 H (2.6-8.5) % Eos % (Auto) 0.4 (0-4.4) % Baso % (Auto) 0.4 (0.2-1.2) % Lymph # (Auto) 2.57 (0.9-3.2) K/mm3 [place] # (Auto) 0.9 H (0.1-0.6) K/mm3 Eos # (Auto) 0.0 (0-0.3) K/mm3 Baso # (Auto) 0.0 (0.0-0.1) K/mm3 Abs Immat Gran (auto) 0.06 H (0.00-0.031) K/mm3 Absolute Neuts (auto) 5.7 (1.3-6.7) K/mm3 Absolute Nucleated RBC 0.000 (0.0-0.012) K/mm3 Nucleated RBC % 0.0 (0.0-0.2) % Sodium 134 L (137-145) mmol/L Potassium 3.9 (3.4-5.0) mmol/L Chloride 96 L (98-107) mmol/L Carbon Dioxide 26 (22-30) mmol/L Anion Gap 12 (4-12) mmol/L BUN 54 H D (7-17) mg/dL Creatinine 2.04 H (0.7-1.0) mg/dL Estim Creat Clear Calc 19 ml/min Estimated GFR 23 L (59 - ) Glucose 259 H (65-110) mg/dL POC Capillary Glucose 302 H (65-105) mg/dl Hemoglobin A1c 9.0 H (<5.7) % Calcium 9.9 (8.4-10.2) mg/dL Total Bilirubin 0.6 (0.2-1.3) mg/dL AST 32 (14-36) U/L ALT 26 (6-35) U/L Alkaline Phosphatase 94 (38-126) U/L Total Protein 8.1 (6.3-8.2) g/dL Albumin 4.5 (3.5-5.1) g/dL Beta-Hydroxybutyrate/Acetoacetate 0.12 (0.02-0.27) mmol/L Urine Color Yellow (Yellow) Urine Appearance Cloudy H (Clear) Urine pH 6.5 (5.0-9.0) Ur Specific [place] 1.012 (1.001-1.035) Urine Protein Negative (Negative) mg/dL Urine Glucose (UA) Trace H (Negative) mg/dL Urine Ketones Negative (Negative) mg/dL Ur Blood (Man) Negative (Negative) Urine Nitrate Negative (Negative) Urine Bilirubin Negative (Negative) Urine Urobilinogen 0.2 (<2.0) mg/dL Leukocyte Esterase Rfl 3+ H (Negative) EDUARDO/UL Urine RBC 0-2 (0-2) /hpf Urine WBC >100 H (0-3) /hpf Ur Squamous Epith Cells Occasional (Few) /hpf Urine Bacteria 4+ H /hpf Urine Casts 3-5 ABG Data ABG results: 10/31/24 18:34 VBG pH 7.521 H* VBG pCO2 33.1 L VBG pO2 < 27.0 L VBG HCO3 26.5 O2 Delivery Device Room air O2 Liters/Min Not Reportable FiO2 21 Attestation: I personally reviewed and interpreted this ABG as follows: Interpretation: Respiratory alkalosis with tachypnea, acute Imaging Data Attestation: I personally reviewed and interpreted this imaging study as follows: My impression: Impressions Chest X-Ray 10/31/24 18:24 IMPRESSION: No focal infiltrate or effusion. Critical Care Time Critical Care Time Critical Care Time: Yes Total Critical Care Time: 35 Discharge Plan Discharge Clinical Impression: Uncontrolled diabetes mellitus, Acute lower urinary tract infection, Acute kidney injury, Acute dehydration Patient Disposition: Still a Patient Condition: Stable
[2024-10-31 22:00] VITALS: BP 135/80; PULSE 85; RESP 15; O2SAT 100
[2024-10-31 23:37] VITALS: BMI 26.9
--- NOTE | 2024-10-31 23:37 | ADMGEN ---
This patient, Ceci Hackett, was admitted to Medical Room 242-. Patient/family oriented to hospital policies and general routines including ID bracelet, bed and alarms, visiting hours, pain management, procedures, bathroom and other care routines, personal items, smoking policy, room service/diet, and visiting hours. Information on how to activate the Rapid Response Team has been discussed. Patient/Family are encouraged to report perceived risks to care and to ask questions if they do not understand what they are told or what they should do.
[2024-10-31 23:53] VITALS: BP 143/47; PULSE 88; RESP 20; TEMP 36.3; O2SAT 98
[2024-10-31] MEDS: LACTATED RINGERS 1,000 ML 125 ML IV CONT (23:56)
[2024-11-01] VITALS (9 sets, daily range): BP systolic 142–194; BP diastolic 52–69; PULSE 82–100; RESP 16–20; TEMP 36.4–36.6; O2SAT 94–100
--- NOTE | 2024-11-01 01:25 | PM.IMHP ---
H&P: HPI History of Present Illness Date/Time: 11/01/24 03:00 Chief Complaint: Nausea, vomiting, high blood sugar. Narrative: This is an 84-year-old female with history of insulin-dependent diabetes, stroke, hypertension, hyperlipidemia, congestive heart failure, gastroesophageal reflux disease, gout, anemia, and chronic kidney disease who presented to the emergency department via private vehicle with complaints of vomiting and high blood sugar. She moved into an assisted living facility 3 weeks ago and she admits that she has not been able to manage her glucose well since that time. She states that her blood sugars have been ranging anywhere from 300 to 500 which is unusual for her. She has been thirsty and is urinating a lot with urgency and occasional dysuria. She is nauseated and endorses occasional nonbloody and nonbilious emesis. She has had a couple of loose stools but not overt diarrhea. She is now feeling weak and thinks that she is likely dehydrated. She denies fever, chills, sweats, blurry vision, sinus congestion, sore throat, cough, chest pain, shortness of breath, abdominal pain, hematemesis, melena, hematochezia, and hematuria. In the ED: Vital signs were stable on arrival. Labs were significant for WBC count of 9.3, sodium 134, chloride 96, BUN 54, creatinine 2.04, glucose 259, hemoglobin A1c 9.0, beta hydroxybutyrate 0.12. Urinalysis was positive for trace glucose, 3+ leukocyte esterase, greater than 100 WBC, and 4+ bacteria with occasional squamous cells noted on microscopy. Chest x-ray was unremarkable. She received 2 L lactated Ringer bolus and ceftriaxone 1 g and she is being admitted in this setting for further treatment of acute on chronic kidney failure and urinary tract infection. Review of Systems Review of Systems: 12 systems were reviewed and are negative except for as per HPI. [facility] Past Medical History Medical History (Updated 11/01/24 @ 03:54 by Reyna Hyman PA-C) Chronic back pain Gout Compression fracture Basal cell carcinoma of skin Anemia Osteoarthritis Gastroesophageal reflux disease Chronic kidney disease, stage 3b Hyperlipidemia Hypertension Insulin dependent diabetes mellitus Heart failure, type unknown Cerebrovascular accident residual right sided weakness Gout Surgical History Surgical History (Updated 11/01/24 @ 03:43 by Reyna Hyman PA-C) Status post insertion of spinal cord stimulator Family History Family History Daughter Cancer Mother Diabetes mellitus Sibling Diabetes mellitus Social History Social History (Updated 11/01/24 @ 03:44 by Reyna Hyman PA-C) Social History: Surrogate medical decision maker: Paige Goncalves, daughter. Code status: Full code. Smoking status: Never smoker Alcohol intake: unknown Substance use: unknown Substance use type: does not use Do You Feel Safe in your Home?: Yes Lack of Transportation: No Lack of Food: Never True Current Housing: I Have Housing Concerned About Future Housing: No Difficulty Paying Gas/Electric Bills: No Difficulty Paying for Meds: No Currently Unemployed: No Education: Grade School Difficulty w/ Childcare or Family Care: No Living arrangements: assisted living Occupation/Education: retired Spiritual care concerns: No Meds Home Medications and Allergies Home Medications ?Medication ?Instructions ?Recorded ?Confirmed ?Type clonidine HCl 0.2 mg tablet 0.2 mg PO Q12H 05/04/23 11/01/24 History furosemide 40 mg tablet 40 mg PO .morning and noon 05/04/23 11/01/24 History insulin regular hum U-500 conc 500 14 unit subcut TIDWM 05/04/23 11/01/24 History unit/mL(3 mL) subcut pen (Humulin R U-500 (Conc) Insulin Kwikpen) ropinirole 0.25 mg tablet 0.25 mg PO HS 05/04/23 11/01/24 History semaglutide 1 mg/dose (4 mg/3 mL) 2 mg subcut WEEKLY 05/04/23 11/01/24 History subcutaneous pen injector (Ozempic) sertraline 50 mg tablet 100 mg PO HS 05/04/23 11/01/24 History simvastatin 10 mg tablet 20 mg PO DAILY 05/04/23 11/01/24 History spironolactone 25 mg tablet 25 mg PO DAILY 05/04/23 11/01/24 History carvedilol 25 mg tablet (Coreg) 25 mg PO BID 10/31/24 11/01/24 History cholecalciferol (vitamin D3) 1,250 1,250 mcg PO WEEKLY 10/31/24 11/01/24 History mcg (50,000 unit) capsule ferrous sulfate 325 mg (65 mg 325 mg PO DAILY 10/31/24 11/01/24 History iron) tablet hydrocodone 5 mg-acetaminophen 325 1 tablet PO Q12H 10/31/24 11/01/24 History mg tablet insulin glargine 100 unit/mL (3 50 unit subcut DAILY 10/31/24 11/01/24 History mL) subcutaneous pen (Lantus Solostar U-100 Insulin) melatonin 10 mg capsule 10 mg PO HS PRN sleep 10/31/24 11/01/24 History omeprazole 20 mg capsule,delayed 20 mg PO HS 10/31/24 11/01/24 History release terazosin 2 mg capsule 2 mg PO HS 10/31/24 11/01/24 History Allergies Allergy/AdvReac Type Severity Reaction Status Date / Time codeine Allergy Mild Unknown Verified 10/31/24 18:36 Penicillins Allergy Mild Unknown Verified 10/31/24 18:36 morphine Allergy Hives Verified 10/31/24 18:36 amlodipine (From [facility]) AdvReac Mild Unknown Verified 10/31/24 18:36 atorvastatin AdvReac Mild Unknown Verified 10/31/24 18:36 erythromycin base AdvReac Mild Unknown Verified 10/31/24 18:36 Vital Signs Vital Signs - 24 hr 10/31/24 16:57 10/31/24 18:25 10/31/24 19:13 Temperature 97.9 F 97.8 F Pulse Rate 70 83 83 Respiratory Rate 18 12 15 Blood Pressure 133/56 L 143/70 H 143/70 H Pulse Oximetry 100 98 100 Oxygen Delivery Room Air Room Air 10/31/24 20:00 10/31/24 22:00 10/31/24 23:53 Temperature 97.4 F L Pulse Rate 81 85 88 Respiratory Rate 12 15 20 Blood Pressure 164/84 H 135/80 143/47 H Pulse Oximetry 100 100 98 Oxygen Delivery 11/01/24 00:00 Temperature Pulse Rate Respiratory Rate Blood Pressure Pulse Oximetry Oxygen Delivery Room Air Exam Narrative: General: Nontoxic-appearing elderly female in the semi-Vance position in bed in no distress. Weight: 71.1 kg. BMI: 26.9. HEENT: PERRL, EOMI. Sclera anicteric. Dry mucous membranes. Neck: Supple. Respiratory: Lungs are clear to auscultation bilaterally. Cardiovascular: Regular rate and rhythm with S1-S2. Gastrointestinal: Abdomen is soft, nontender, and nondistended with positive bowel sounds. Skin: Warm and dry. Extremities: No cyanosis, clubbing, or edema. Radial and pedal pulses intact. Neurological: Alert. Cranial nerves 2-12 are grossly intact. Psychiatric: Pleasant and cooperative with normal mood and affect. H&P: Results Labs Labs: Short CBC 10/31/24 Range/Units 18:34 WBC 9.3 (4.5-10.0) K/mm3 Hgb 12.6 (12.0-15.0) g/dL Hct 37.3 (37.0-47.0) % Plt Count 281 (150-375) k/mm3 BMP 10/31/24 18:34 Sodium 134 L Potassium 3.9 Chloride 96 L Carbon Dioxide 26 BUN 54 H D Creatinine 2.04 H Glucose 259 H Calcium 9.9 Liver Function 10/31/24 Range/Units 18:34 Total Bilirubin 0.6 (0.2-1.3) mg/dL AST 32 (14-36) U/L ALT 26 (6-35) U/L Alkaline Phosphatase 94 (38-126) U/L Albumin 4.5 (3.5-5.1) g/dL Urine 10/31/24 Range/Units 20:57 Urine Color Yellow (Yellow) Urine Appearance Cloudy H (Clear) Urine pH 6.5 (5.0-9.0) Ur Specific [place] 1.012 (1.001-1.035) Urine Protein Negative (Negative) mg/dL Urine Glucose (UA) Trace H (Negative) mg/dL Impressions Chest X-Ray 10/31/24 18:24 IMPRESSION: No focal infiltrate or effusion. Assessment and Plan Assessment and plan (1) Acute on chronic kidney failure: Code(s): N17.9 - Acute kidney failure, unspecified; N18.9 - Chronic kidney disease, unspecified Status: Acute (2) Dehydration: Code(s): E86.0 - Dehydration Status: Acute (3) Urinary tract infection: Code(s): N39.0 - Urinary tract infection, site not specified Status: Acute (4) Insulin dependent diabetes mellitus: Status: Acute (5) Hypertension: Code(s): I10 - Essential (primary) hypertension Status: Acute Plan The patient presented to the emergency department for evaluation of nausea, vomiting, high blood sugar, and urinary symptoms as detailed in HPI. Labs, imaging, EKG, and all reports were personally reviewed. She moved to assisted living 3 weeks ago and has had difficulties controlling her glucose since that time. Hemoglobin A1c today was 9%. She is not diabetic ketoacidosis. She is quite dehydrated however and will receive IV fluids overnight. Acute on chronic kidney injury is likely related to the dehydration though her urine output overnight has not been great thus will obtain a bladder scan to rule out urinary retention. All medications will be renally dosed and nephrotoxic agents will be avoided. If no improvement with IV fluids alone a further workup will need to be pursued. She is on ceftriaxone for apparent urinary tract infection, pending urine culture. Continue basal insulin. Initiate sliding scale insulin, Accu-Cheks, and hypoglycemic protocol. Blood pressures were reviewed and they are stable. Her home medications will be reviewed and resumed as appropriate. Findings and treatment plan were discussed with the patient. Questions were solicited and answered to satisfaction. The patient's medical management will be taken over by the hospitalist team in a.m. Quality VTE Prophylaxis VTE prophylaxis: pharmacologic ordered The patient has been admitted under observation status. Hospitalist MIPS Advance Care Plan I have confirmed that the patient's Advanced Care Plan is present, code status is documented, or surrogate decision maker is listed in patient medical record.: Yes Medication Reconciliation I have utilized all available resources to obtain, update and review the patients current medications (includes all prescriptions, OTC, herbals, cannabis, and nutritional supplements).: Yes
--- NOTE | 2024-11-01 06:31 | PM.IMPN ---
Progress Note: A&P Assessment and Plan (1) Urinary tract infection: Code(s): N39.0 - Urinary tract infection, site not specified Status: Acute Assessment and Plan: - Receiving IV Rocephin 2 gram, - pending urine cultures will trend (2) Dehydration: Code(s): E86.0 - Dehydration Status: Acute Assessment and Plan: - recieved 2 liters LR in the Emergency department, with little urine output - continued fluids while admitted - trend CMP (3) Acute on chronic kidney failure: Code(s): N17.9 - Acute kidney failure, unspecified; N18.9 - Chronic kidney disease, unspecified Status: Acute Assessment and Plan: - hx Chronic Stage 3 Renal Disease - increased BUN - Creat lower GFR on arrival - trend labs daily (4) Insulin dependent diabetes mellitus: Status: Acute Assessment and Plan: - Noted arrival glucose 290, - admits to not managing glucose well at assisted living - A1c - 9.0 - Accu-checks ACHS, manage glucose (5) Acute dehydration: Code(s): E86.0 - Dehydration Status: Acute Assessment and Plan: - continue with IV fluids at low rate 70 ml/hr - monitor bmp daily (6) Hypertension: Code(s): I10 - Essential (primary) hypertension Status: Acute Assessment and Plan: - continue home medications (7) Hyperlipidemia: Code(s): E78.5 - Hyperlipidemia, unspecified Status: Acute Assessment and Plan: - continue home medications Plan - Discharge to assisted living once stable. full code VTE - lovenox Time Spent With Patient Time with patient: 25 - 35 minutes Subjective Date/time seen: 11/01/24 06:31 Interval history: This am patient is sitting up in bed, she had just returned from the bathroom. Patient reports continued feeling of weakness but slightly improved. Denies any chest pain, SOB, headache, distress. Tolerating IV fluids and IV antibiotic without concern. Review of Systems Review of Systems: 12 systems were reviewed and are negative except for as per HPI. All systems reviewed & are unremarkable except as noted in HPI and below Exam Narrative: General: Nontoxic-appearing elderly female in the semi-Vance position in bed in no distress. Weight: 71.1 kg. BMI: 26.9. HEENT: PERRL, EOMI. Sclera anicteric. Dry mucous membranes. Neck: Supple. Respiratory: Lungs are clear to auscultation bilaterally. Cardiovascular: Regular rate and rhythm with S1-S2. Gastrointestinal: Abdomen is soft, nontender, and nondistended with positive bowel sounds. Skin: Warm and dry. Extremities: No cyanosis, clubbing, or edema. Radial and pedal pulses intact. Neurological: Alert. Cranial nerves 2-12 are grossly intact. Psychiatric: Pleasant and cooperative with normal mood and affect. Objective Data Vital Signs Vital Signs: Vital Signs - 24 hr 10/31/24 16:57 10/31/24 18:25 10/31/24 19:13 Temperature 97.9 F 97.8 F Pulse Rate 70 83 83 Respiratory Rate 18 12 15 Blood Pressure 133/56 L 143/70 H 143/70 H Pulse Oximetry 100 98 100 Oxygen Delivery Room Air Room Air 10/31/24 20:00 10/31/24 22:00 10/31/24 23:53 Temperature 97.4 F L Pulse Rate 81 85 88 Respiratory Rate 12 15 20 Blood Pressure 164/84 H 135/80 143/47 H Pulse Oximetry 100 100 98 Oxygen Delivery 11/01/24 00:00 11/01/24 05:00 Temperature 97.6 F Pulse Rate 88 Respiratory Rate 20 Blood Pressure 162/67 H Pulse Oximetry 94 Oxygen Delivery Room Air Intake/Output Intake/Output: Intake & Output 10/29/24 10/30/24 10/31/24 11/01/24 23:59 23:59 23:59 23:59 Intake Total 2049 620.8 Output Total 500 Balance 2049 120.8 Meds/Results Medications: Active Medications Generic Name Dose Route Start Last Admin Trade Name Freq PRN Reason Stop Dose Admin Acetaminophen 650 mg 11/01/24 01:21 Acetaminophen 325 Mg Tablet PO Q6H PRN Mild Pain (1-3) or Fever Hydrocodone Bitart/Acetaminophen 1 tab 11/01/24 09:00 Hydrocodone/Acetaminophen (*Crx) 5-325 Mg Tablet PO Q12HR KADEN Carvedilol 25 mg 11/01/24 09:00 Carvedilol 25 Mg Tablet PO Q12HR KADEN Clonidine HCl 0.2 mg 11/01/24 09:00 Clonidine Hcl 0.2 Mg Tablet PO Q12HR KADEN Dextrose 12.5 gm 11/01/24 01:21 Dextrose 50% 25 Gm/50 Ml Syringe IV PUSH PRN PRN Hypoglycemia Protocol Enoxaparin Sodium 30 mg 11/01/24 09:00 Enoxaparin 30 Mg/0.3 Ml Syringe SUB-Q DAILY [facility] Ergocalciferol 1,250 mcg 11/02/24 09:00 Ergocalciferol (Vitamin D2) 1,250 Mcg (50,000 Units) Capsule PO We@0900 KADEN Ferrous Sulfate 325 mg 11/01/24 09:00 Ferrous Sulfate [address] BY MOUTH DAILY [facility] Glucagon 1 mg 11/01/24 01:21 Glucagon For Inj 1 Mg Vial IM PRN PRN Hypoglycemia Protocol Glucose 15 gm 11/01/24 01:21 Glucose Oral Gel 15 Gm Of Glucse In 37.5 Gm Tube PO PRN PRN Hypoglycemia Protocol Lactated Ringer's 1,000 mls @ 70 mls/hr 10/31/24 21:35 11/01/24 04:06 Lr - Lactated Ringers Iv IV CONT 70 mls/hr .[id number] KADEN Infusion Dextrose 1,000 mls @ 100 mls/hr 11/01/24 01:21 Dextrose 5% 1,000 Ml IVPB PRN PRN Hypoglycemia Protocol Ceftriaxone Sodium 1 gm in 50 mls @ 100 mls/hr 11/01/24 22:00 Rocephin 1 Gm/Ns 50 Ml IVPB Q24H [facility] Insulin Aspart 2 - 4 units 11/01/24 21:00 Insulin Aspart (*Bkc) 100 Units/Ml SUB-Q HS [facility] Protocol Insulin Aspart 4 - 8 units 11/01/24 08:00 Insulin Aspart (*Bkc) 100 Units/Ml SUB-Q TIDWM [facility] Protocol Insulin Glargine 50 units 11/01/24 09:00 Insulin Glargine (*Bkc) 100 Units/Ml SUB-Q DAILY [facility] Insulin Human Regular 14 units 11/01/24 08:00 Insulin Human Regular (*Bkc) 100 Units/Ml SUB-Q TIDWM [facility] Melatonin 10 mg 11/01/24 01:24 Melatonin 5 Mg Tablet PO HS PRN sleep Ondansetron HCl 4 mg 10/31/24 21:32 Ondansetron Inj 4 Mg/2 Ml Vial IV PUSH Q4H PRN Nausea Pantoprazole Sodium 40 mg 11/01/24 21:00 Pantoprazole 40 Mg Tablet PO HS [facility] Ropinirole HCl 0.25 mg 11/01/24 21:00 Ropinirole Hcl 0.25 Mg Tablet PO HS KADEN Sertraline HCl 100 mg 11/01/24 21:00 Sertraline Hcl 50 Mg Tablet PO HS KADEN Simvastatin 20 mg 11/01/24 09:00 Simvastatin 20 Mg Tablet PO QAM [facility] Terazosin HCl 2 mg 11/01/24 21:00 Terazosin Hcl 1 Mg Capsule PO HS [facility] Radiology Results: ITS Impressions Chest X-Ray 10/31/24 18:24 IMPRESSION: No focal infiltrate or effusion. Labs Labs: Laboratory Results - last 24 hr 10/31/24 10/31/24 10/31/24 17:01 18:34 20:57 WBC 9.3 RBC 4.70 Hgb 12.6 Hct 37.3 MCV 79.4 L MCH 26.8 MCHC 33.8 RDW 15.4 H Plt Count 281 MPV 9.2 Immature Gran % (Auto) 0.6 H Neut % (Auto) 61.5 Lymph % (Auto) 27.7 [place] % (Auto) 9.4 H Eos % (Auto) 0.4 Baso % (Auto) 0.4 Lymph # (Auto) 2.57 [place] # (Auto) 0.9 H Eos # (Auto) 0.0 Baso # (Auto) 0.0 Abs Immat Gran (auto) 0.06 H Absolute Neuts (auto) 5.7 Absolute Nucleated RBC 0.000 Nucleated RBC % 0.0 VBG pH 7.521 H* VBG pCO2 33.1 L VBG pO2 < 27.0 L VBG HCO3 26.5 O2 Delivery Device Room air O2 Liters/Min Not Reportable FiO2 21 Sodium 134 L Potassium 3.9 Chloride 96 L Carbon Dioxide 26 Anion Gap 12 BUN 54 H D Creatinine 2.04 H Estim Creat Clear Calc 19 Estimated GFR 23 L Glucose 259 H POC Capillary Glucose 302 H Hemoglobin A1c 9.0 H Calcium 9.9 Total Bilirubin 0.6 AST 32 ALT 26 Alkaline Phosphatase 94 Total Protein 8.1 Albumin 4.5 Beta-Hydroxybutyrate/Acetoacetate 0.12 Urine Color Yellow Urine Appearance Cloudy H Urine pH 6.5 Ur Specific [place] 1.012 Urine Protein Negative Urine Glucose (UA) Trace H Urine Ketones Negative Ur Blood (Man) Negative Urine Nitrate Negative Urine Bilirubin Negative Urine Urobilinogen 0.2 Leukocyte Esterase Rfl 3+ H Urine RBC 0-2 Urine WBC >100 H Ur Squamous Epith Cells Occasional Urine Bacteria 4+ H Urine Casts 3-5 Quality VTE Prophylaxis VTE prophylaxis: pharmacologic ordered Hospitalist MIPS Advance Care Plan I have confirmed that the patient's Advanced Care Plan is present, code status is documented, or surrogate decision maker is listed in patient medical record.: Yes Medication Reconciliation I have utilized all available resources to obtain, update and review the patients current medications (includes all prescriptions, OTC, herbals, cannabis, and nutritional supplements).: Yes The patient is not eligible for med reconciliation; the patient is in a emergent medical situation where delaying treatment would jeopardize the patients health.: Yes
[2024-11-01 07:54] LABS: Basophils Percent Auto 0.5 % (0.2-1.2); Eosinophils Absolute Auto 0.1 K/mm3 (0-0.3); Eosinophils Percent Auto 1.1 % (0-4.4); Hematocrit 35.3 % (37.0-47.0); Hemoglobin 11.9 g/dL (12.0-15.0); Immature Granulocyte Absolute 0.05 K/mm3 (0.00-0.031); Immature Granulocyte Percent A 0.8 % (0-0.5); Lymphocytes Absolute Auto 1.83 K/mm3 (0.9-3.2); Lymphocytes Percent Auto 29.4 % (18.3-44.2); Mean Corpuscular HGB Conc 33.7 g/dl (32-36); Mean Corpuscular Hemoglobin 27.2 pg (26-34); Mean Corpuscular Volume 80.6 fl (80-100); Mean Platelet Volume 9.2 fl (7.4-10.4); Monocytes Absolute Auto 0.6 K/mm3 (0.1-0.6); Monocytes Percent Auto 9.1 % (2.6-8.5); Neutrophils Absolute Auto 3.7 K/mm3 (1.3-6.7); Neutrophils Percent Auto 59.1 % (45.5-73.1); Platelet Count Result 231 k/mm3 (150-375); Red Blood Count 4.38 M/mm3 (4.2-5.4); Red Cell Distribution Width 15.6 % (11.5-14.5); White Blood Count 6.2 K/mm3 (4.5-10.0)
[2024-11-01 08:00] LABS: Glucose Point of Care 202 mg/dl (65-105)
[2024-11-01 08:25] LABS: Anion Gap 9 mmol/L (4-12); Blood Urea Nitrogen 43 mg/dL (7-17); Calcium 9.1 mg/dL (8.4-10.2); Carbon Dioxide 27 mmol/L (22-30); Chloride 100 mmol/L (98-107); Estimated CRCL calculation 22 ml/min; Estimated Glomerular Filt Rate 33; Glucose 275 mg/dL (65-110); Sodium 136 mmol/L (137-145)
[2024-11-01] MEDS: carvediloL 25 MG TABLET PO ×2 (08:27→20:35)
[2024-11-01] MEDS: cloNIDine HCL 0.2 MG TABLET PO ×2 (08:27→20:35)
[2024-11-01] MEDS: HYDROcodone/acetaminophen (*CRX) 5-325 MG TABLET 1 TAB PO (08:28)
[2024-11-01] MEDS: ENOXAPARIN 30 MG/0.3 ML SYRINGE SUB-Q (08:28)
[2024-11-01] MEDS: SIMVASTATIN 20 MG TABLET PO (08:28)
[2024-11-01] MEDS: INSULIN ASPART (*BKC) 100 UNITS/ML SUB-Q ×2 (08:30→20:36)
[2024-11-01] MEDS: INSULIN GLARGINE (*BKC) 100 UNITS/ML 50 UNITS SUB-Q (08:31)
[2024-11-01] MEDS: INSULIN HUMAN REGULAR (*BKC) 100 UNITS/ML 14 UNITS SUB-Q ×2 (08:33→12:39)
[2024-11-01] MEDS: LACTATED RINGERS 1,000 ML 70 ML IV CONT (11:10)
[2024-11-01 12:25] LABS: Glucose Point of Care 198 mg/dl (65-105)
[2024-11-01 17:31] LABS: Glucose Point of Care 70 mg/dl (65-105)
[2024-11-01] MEDS: PANTOPRAZOLE 40 MG TABLET PO (20:34)
[2024-11-01] MEDS: rOPINIRole HCL 0.25 MG TABLET PO (20:35)
[2024-11-01] MEDS: TERAZOSIN HCL 1 MG CAPSULE 2 MG PO (20:35)
[2024-11-01] MEDS: SERTRALINE HCL 50 MG TABLET 100 MG PO (20:35)
[2024-11-01 21:44] LABS: Glucose Point of Care 217 mg/dl (65-105)
[2024-11-01] MEDS: LABETALOL HCL INJ 100 MG/20 ML VIAL 20 MG IV PUSH (23:38)
--- NOTE | 2024-11-02 | ECHO_ITS ---
Patient Info Name: Ceci Hcakett Age: 84 years : 1940 Gender: Female Ht: 64 in Wt: 155 lbs BSA: 1.80 m2 HR: 82 bpm BP: 186 / 62 mmHg Technical Quality: Good Exam Date: 11/02/2024 9:40 AM Patient Status: I Admit Date: 11/01/2024 Exam Type: CA echo doppler color flow Complete two-dimensional, color flow and Doppler transthoracic echocardiogram is performed. Staff Referring Physician: Tru Haji Commission Auditor: Ifrah Soto Attending Provider: Yael Mitchell Summary 1. Left ventricular chamber dimension is normal. 2. Left ventricular systolic function is normal, estimated at 60-65. 3. There is moderately increased left ventricular wall thickness. 4. The left ventricular diastolic function is grade I diastolic dysfunction. 5. Right ventricular systolic function is normal. 6. Left atrial chamber dimension is moderately enlarged. 7. No significant valvular disease. 8. There is small pericardial effusion. Left Ventricle Left ventricular chamber dimension is normal. Left ventricular systolic function is normal, estimated at 60-65. There is moderately increased left ventricular wall thickness. The left ventricular diastolic function is grade I diastolic dysfunction. Right Ventricle Right ventricular chamber dimension is normal. Right ventricular systolic function is normal. Left Atria Left atrial chamber dimension is moderately enlarged. Right Atria Right atrial chamber dimension is normal. Atrial Septum Intact interatrial septum visualized by color flow imaging. Aortic Valve The aortic valve is trileaflet. There is no aortic valve stenosis. There is no aortic valve regurgitation. Pulmonic Valve The pulmonic valve is not well visualized. Mitral Valve There is trace mitral valve regurgitation. Tricuspid Valve There is trace tricuspid valve regurgitation. Pericardium/Pleural There is small pericardial effusion. Inferior Vena Cava Normal inferior vena cava with >50% collapse upon inspiration consistent with normal right atrial pressure, 3 mmHg. Aorta The aortic root size at the sinus of Valsalva is normal. Left Ventricular Outflow Tract Name Value Normal LVOT 2D LVOT Diameter 2.0 cm LVOT Doppler LVOT Peak Velocity 89 cm/s LVOT Peak Gradient 3 mmHg LVOT Mean Gradient 2 mmHg LVOT VTI 20 cm LVOT Stroke Volume 65 ml LVOT CO 5.3 l/min LVOT CI 3.0 l/min/m2 Pulmonic Valve Name Value Normal RVOT Doppler RVOT Peak Velocity 90 cm/s RVOT Peak Gradient 3 mmHg PV Doppler PV Peak Velocity 103 cm/s PV Peak Gradient 4 mmHg Mitral Valve Name Value Normal MV Diastolic Function MV E Peak Velocity 47 cm/s MV A Peak Velocity 117 cm/s MV E/A 0.4 MV Decel Time (PW) 321 ms MV Annular TDI MV E/e' (Septal) 11.3 MV E/e' (Lateral) 4.3 MV E/e' (Average) 7.8 Tricuspid Valve Name Value Normal Estimated PAP/RSVP RA Pressure 3 mmHg <=5 Aortic Valve Name Value Normal AV Doppler AV Peak Velocity 143 cm/s AV Peak Gradient 8 mmHg AV Area (Cont Eq Nilo) 2.0 cm2 AV DI (Nilo) 0.62 AV Regurgitation 2D LVOT Area 3.3 cm2 Ventricles Name Value Normal LV Dimensions 2D/MM IVS Diastolic Thickness (2D) 1.2 cm 0.6-1.0 LVID Diastole (2D) 4.1 cm 3.8-5.2 LVIW Diastolic Thickness (2D) 1.3 cm 0.6-0.9 LVID Systole (2D) 3.0 cm 2.2-3.5 LVOT Diameter 2.0 cm LV Mass (2D Cubed) 181.05 g 67.00-162.00 LV Mass Index (2D Cubed) 101 g/m2 43-95 Relative Wall Thickness (2D) 0.62 <=0.42 LV Fractional Shortening/Ejection Fraction 2D/MM LV Fractional Shortening (2D) 28 % 27-45 LV EF (2D Teichholz) 55 % LV Diastolic Volume (4C MOD) 150 ml LV EF (4C MOD) 64 % LV Diastolic Volume (2C MOD) 101 ml LV EF (2C MOD) 67 % LV Diastolic Volume (BP MOD) 125 ml 46-106 LV Diastolic Volume Index (BP MOD) 69 ml/m2 29-61 LV Systolic Volume (BP MOD) 43 ml 14-42 LV Systolic Volume Index (BP MOD) 24 ml/m2 8-24 LV EF (BP MOD) 65 % 54-74 LV Diastolic Length (4C) 8.3 cm LV Systolic Length (4C) 7.6 cm LV Stroke Volume (4C MOD) 97 ml Atria Name Value Normal LA Dimensions LA Volume (4C A-L) 65 ml LA Volume (BP A-L) 73 ml RA Dimensions RA Systolic [place] Length (4C) 5.6 cm 2.2-2.8 RA Area (4C) 14.0 cm2 <=18.0 Report Signatures
[2024-11-02 00:38] VITALS: BP 212/78; PULSE 86; O2SAT 96
[2024-11-02] MEDS: LACTATED RINGERS 1,000 ML 70 ML IV CONT (00:38)
--- NOTE | 2024-11-02 00:56 | PM.EVENT ---
Event Note Event Note Event Note: 11/01/24 @ 2325 RN contacted me stating that patient had quite elevated blood pressure with no current symptoms. Patient is admitted for UTI with MIGUEL ÁNGEL on CKD. She received her evening dose of carvedilol 25 mg and clonidine 0.2 mg but her BP remains quite elevated, slightly better in left arm than right. HR between 80 and 100. I instructed to give a one time dose of labetalol 20 mg IV then check BP again an hour later. 11/02/24 @0048 RN notified me that on recheck BP had actually gone up. I reviewed her labs and orders more fully and saw that she was still getting IV fluids due to MIGUEL ÁNGEL on CKD but labs had improved from admit to last set. I instructed to stop IV fluids and recheck BP when labs are drawn around 0430 but no new medications at this time since patient denied ANY symptoms or complaints. RN noted very minor diaphoresis and patient states that happens to her often but again denied headache, dyspnea, chest pain or any other complaints except she was unhappy being awakened so much. 11/02/24 @ 0427 RN notified me that BP is still elevated over 180 systolic on the left arm (which was the lower BP arm earlier.) Ordered oral hydralazine 25 mg x 1 dose and will ask Day Rounding Team to further address. I did order an echocardiogram as we do not have one on file.
[2024-11-02 04:15] VITALS: BP 186/62; PULSE 82; RESP 20; TEMP 36.6; O2SAT 95
[2024-11-02 05:10] LABS: Basophils Percent Auto 0.6 % (0.2-1.2); Eosinophils Absolute Auto 0.1 K/mm3 (0-0.3); Eosinophils Percent Auto 1.6 % (0-4.4); Hematocrit 33.5 % (37.0-47.0); Hemoglobin 10.8 g/dL (12.0-15.0); Immature Granulocyte Absolute 0.04 K/mm3 (0.00-0.031); Immature Granulocyte Percent A 0.6 % (0-0.5); Lymphocytes Absolute Auto 1.84 K/mm3 (0.9-3.2); Lymphocytes Percent Auto 29.2 % (18.3-44.2); Mean Corpuscular HGB Conc 32.2 g/dl (32-36); Mean Corpuscular Hemoglobin 26.8 pg (26-34); Mean Corpuscular Volume 83.1 fl (80-100); Mean Platelet Volume 9.3 fl (7.4-10.4); Monocytes Absolute Auto 0.6 K/mm3 (0.1-0.6); Monocytes Percent Auto 8.7 % (2.6-8.5); Neutrophils Absolute Auto 3.7 K/mm3 (1.3-6.7); Neutrophils Percent Auto 59.3 % (45.5-73.1); Platelet Count Result 221 k/mm3 (150-375); Red Blood Count 4.03 M/mm3 (4.2-5.4); Red Cell Distribution Width 15.5 % (11.5-14.5); White Blood Count 6.3 K/mm3 (4.5-10.0)
[2024-11-02 05:22] LABS: Alanine Aminotransferase 22 U/L (6-35); Albumin Level 3.7 g/dL (3.5-5.1); Alkaline Phosphatase 69 U/L (38-126); Anion Gap 8 mmol/L (4-12); Aspartate Amino Transferase 32 U/L (14-36); Bilirubin,Total 0.4 mg/dL (0.2-1.3); Blood Urea Nitrogen 30 mg/dL (7-17); Calcium 8.9 mg/dL (8.4-10.2); Carbon Dioxide 26 mmol/L (22-30); Chloride 104 mmol/L (98-107); Estimated CRCL calculation 33 ml/min; Estimated Glomerular Filt Rate 47; Glucose 173 mg/dL (65-110); Potassium 3.9 mmol/L (3.4-5.0); Sodium 138 mmol/L (137-145); Total Protein 6.6 g/dL (6.3-8.2)
[2024-11-02] MEDS: hydrALAZINE HCL 25 MG TABLET PO (06:07)
[2024-11-02 08:12] LABS: Glucose Point of Care 199 mg/dl (65-105)
[2024-11-02 09:11] VITALS: BP 177/72; PULSE 85; O2SAT 96
[2024-11-02 09:12] VITALS: PULSE 85
[2024-11-02] MEDS: carvediloL 25 MG TABLET PO (09:12)
[2024-11-02] MEDS: cloNIDine HCL 0.2 MG TABLET PO (09:12)
[2024-11-02] MEDS: ERGOCALCIFEROL (VITAMIN D2) 1,250 MCG (50,000 UNITS) CAPSULE 1250 MCG PO (09:13)
[2024-11-02] MEDS: SIMVASTATIN 20 MG TABLET PO (09:13)
[2024-11-02] MEDS: ENOXAPARIN 40 MG/0.4 ML SYRINGE SUB-Q (09:13)
[2024-11-02] MEDS: INSULIN HUMAN REGULAR (*BKC) 100 UNITS/ML 14 UNITS SUB-Q ×2 (09:14→13:00)
[2024-11-02] MEDS: INSULIN GLARGINE (*BKC) 100 UNITS/ML 50 UNITS SUB-Q (09:14)
--- NOTE | 2024-11-02 12:12 | P.DS_ITS ---
DS: Admitting Diagnosis Discharge Date 11/02/2024 Admitting Diagnosis High blood sugar, UTI DS: Discharge Diagnosis Discharge Diagnosis (1) Urinary tract infection: Code(s): N39.0 - Urinary tract infection, site not specified Status: Ruled-out (2) Dehydration: Code(s): E86.0 - Dehydration Status: Acute (3) Acute on chronic kidney failure: Code(s): N17.9 - Acute kidney failure, unspecified; N18.9 - Chronic kidney disease, unspecified Status: Acute (4) Insulin dependent diabetes mellitus: Status: Acute (5) Acute dehydration: Code(s): E86.0 - Dehydration Status: Acute (6) Hypertension: Code(s): I10 - Essential (primary) hypertension Status: Acute (7) Hyperlipidemia: Code(s): E78.5 - Hyperlipidemia, unspecified Status: Acute DS: Summary Hospital Course Reason for hospitalization: High blood sugar Hospital Course: This is an 84-year-old female with history of insulin-dependent diabetes, stroke, hypertension, hyperlipidemia, congestive heart failure, gastroesophageal reflux disease, gout, anemia, and chronic kidney disease who presented to the emergency department via private vehicle with complaints of vomiting and high blood sugar. She moved into an assisted living facility 3 weeks ago and she admits that she has not been able to manage her glucose well since that time. She states that her blood sugars have been ranging anywhere from 300 to 500 which is unusual for her. She has been thirsty and is urinating a lot with urgency and occasional dysuria. She is nauseated and endorses occasional nonbloody and nonbilious emesis. She has had a couple of loose stools but not overt diarrhea. She is now feeling weak and thinks that she is likely dehydrated. She denies fever, chills, sweats, blurry vision, sinus congestion, sore throat, cough, chest pain, shortness of breath, abdominal pain, hematemesis, melena, hematochezia, and hematuria. In the ED: Vital signs were stable on arrival. Labs were significant for WBC co unt of 9.3, sodium 134, chloride 96, BUN 54, creatinine 2.04, glucose 259, hemoglobin A1c 9.0, beta hydroxybutyrate 0.12. Urinalysis was positive for trace glucose, 3+ leukocyte esterase, greater than 100 WBC, and 4+ bacteria with occasional squamous cells noted on microscopy. Chest x-ray was unremarkable. She received 2 L lactated Ringer bolus and ceftriaxone 1 g and she is being admitted in this setting for further treatment of acute on chronic kidney failure and urinary tract infection. Patient was treated for UTI throughout hospitalization. Urine culture was obtained and showed no growth of bacteria, and thus UTI diagnosis was ruled out. Her generalized weakness continued to improve throughout hospitalization. She continued tolerating IV fluids without concern or complication. Overnight provider was notified of elevated BP and pt was given PO Hydralazine and echocardiogram was ordered. Echo showed EF 60-65%, moderately increased left ventricular wall thickness, grade 1 diastolic dysfunction, but otherwise was normal. On am of 11/02, kidney function and BP improved. PT otherwise stable, with stable blood work and vitals. She states that she feels great and would like to be discharge today if possible. Pt can safely discharged home at this time with close followup regarding blood pressure management with her PCP. Pt is amenable to this. Plan for discharge home. Status at Discharge Functional status at discharge: uses cane/walker Overall status at discharge: patient is back to baseline Time Spent with Patient Time attestation: Total time spent providing and/or coordinating discharge services: 35 Exam Narrative: General: Nontoxic-appearing elderly female in the semi-Vance position in bed in no distress. Weight: 71.1 kg. BMI: 26.9. HEENT: PERRL, EOMI. Sclera anicteric. Moist mucous membranes. Neck: Supple. Respiratory: Lungs are clear to auscultation bilaterally. Cardiovascular: Regular rate and rhythm with S1-S2. Gastrointestinal: Abdomen is soft, nontender, and nondistended with positive bowel sounds. Skin: Warm and dry. Extremities: No cyanosis, clubbing, or edema. Radial and pedal pulses intact. Neurological: Alert. Cranial nerves 2-12 are grossly intact. Psychiatric: Pleasant and cooperative with normal mood and affect. DS: Data Data Completed and Pending Labs on day of discharge: Labs from last 24 hours 11/02/24 11/02/24 11/01/24 07:50 04:10 19:41 WBC 6.3 RBC 4.03 L Hgb 10.8 L Hct 33.5 L MCV 83.1 MCH 26.8 MCHC 32.2 RDW 15.5 H Plt Count 221 MPV 9.3 Immature Gran % (Auto) 0.6 H Neut % (Auto) 59.3 Lymph % (Auto) 29.2 [place] % (Auto) 8.7 H Eos % (Auto) 1.6 Baso % (Auto) 0.6 Lymph # (Auto) 1.84 [place] # (Auto) 0.6 Eos # (Auto) 0.1 Baso # (Auto) 0.0 Abs Immat Gran (auto) 0.04 H Absolute Neuts (auto) 3.7 Absolute Nucleated RBC 0.000 Nucleated RBC % 0.0 Sodium 138 Potassium 3.9 Chloride 104 Carbon Dioxide 26 Anion Gap 8 BUN 30 H D Creatinine 1.11 H Estim Creat Clear Calc 33 Estimated GFR 47 L Glucose 173 H POC Capillary Glucose 199 H 217 H Calcium 8.9 Total Bilirubin 0.4 AST 32 ALT 22 Alkaline Phosphatase 69 Total Protein 6.6 Albumin 3.7 11/01/24 11/01/24 17:10 12:16 WBC RBC Hgb Hct MCV MCH MCHC RDW Plt Count MPV Immature Gran % (Auto) Neut % (Auto) Lymph % (Auto) [place] % (Auto) Eos % (Auto) Baso % (Auto) Lymph # (Auto) [place] # (Auto) Eos # (Auto) Baso # (Auto) Abs Immat Gran (auto) Absolute Neuts (auto) Absolute Nucleated RBC Nucleated RBC % Sodium Potassium Chloride Carbon Dioxide Anion Gap BUN Creatinine Estim Creat Clear Calc Estimated GFR Glucose POC Capillary Glucose 70 198 H Calcium Total Bilirubin AST ALT Alkaline Phosphatase Total Protein Albumin Discharge Plan Discharge Attending physician on discharge: Yael Mitchell Consulting providers: Sam Escobar Discharging Clinician: Sam Escobar Anticipated Discharge Date/Time: 11/02/24 12:09 Patient Disposition: Home Activity: as tolerated Diet: as tolerated Discharge Instructions: Discharge disposition: Stable Take medications as prescribed Monitor blood pressures Take caution while standing, rising, or moving Change positions slowly taking a break between each position change If you standing feel dizzy sit back down and take a break Encouraged to continue with yearly vaccinations Return to the emergency department if he developed sudden shortness of breath, chest pain, nausea, vomiting, upset stomach or intractable diarrhea Return to the emergency department if you develop fever greater than 101.5 Follow-up with the primary care physician within 1-2 weeks Thank you for [facility] for your healthcare needs Patient Instructions: Antibiotic Form, Heart Failure (DC), Pain Management (DC) Patient Language: B[place] Stand Alone Forms: General Discharge Information Follow-up/Referrals: Erinn,Lisset Segundo, [employer] SUPERVISOR [Primary Care Provider] - Discharge Medications: Continued furosemide 40 mg tablet 40 mg PO .morning and noon simvastatin 10 mg tablet 20 mg PO DAILY spironolactone 25 mg tablet 25 mg PO DAILY clonidine HCl 0.2 mg tablet 0.2 mg PO Q12H ropinirole 0.25 mg tablet 0.25 mg PO HS sertraline 50 mg tablet 100 mg PO HS Humulin R U-500 (Conc) Kwikpen 500 unit/mL (3 mL) insulin pen 14 unit SUBCUT TIDWM Ozempic 1 mg/dose (4 mg/3 mL) pen injector 2 mg SUBCUT WEEKLY Patient Comments: administer on Thursday carvedilol [Coreg] 25 mg tablet 25 mg PO BID Rx Instructions: must administer with a meal/food ferrous sulfate 325 mg (65 mg iron) tablet 325 mg PO DAILY hydrocodone-acetaminophen 5-325 mg tablet 1 tablet PO Q12H melatonin 10 mg capsule 10 mg PO HS PRN (Reason: sleep) omeprazole 20 mg capsule,delayed release(DR/EC) 20 mg PO HS terazosin 2 mg capsule 2 mg PO HS cholecalciferol (vitamin D3) 1,250 mcg (50,000 unit) capsule 1,250 mcg PO WEEKLY Patient Comments: takes on Wednesdays insulin glargine [Lantus Solostar U-100 Insulin] 100 unit/mL (3 mL) insulin pen 50 unit subcut DAILY Date of admission: 11/01/24 14:01 Primary Care Provider: Toby,Lisset Segundo Admitting Provider: Yael Mitchell Attending physician on admission: Yael Mitchell Condition: Stable Quality VTE Prophylaxis VTE prophylaxis: pharmacologic ordered
[2024-11-02 12:43] LABS: Glucose Point of Care 212 mg/dl (65-105)
[2024-11-02] MEDS: INSULIN ASPART (*BKC) 100 UNITS/ML SUB-Q (12:58)
[2024-11-02 14:00] VITALS: BP 157/78; PULSE 90; RESP 18; TEMP 36.2; O2SAT 100
[2024-11-02 16:50] LABS: Glucose Point of Care 72 mg/dl (65-105)
== END 2024-11-02 17:40 | DRG 683 ==
LOC: ANHED 18:16 → ANH2MED 22:05
PROVIDERS: Nurse Practitioner Family; Physician Assistant; Admitting Provider Internal Medicine; Emergency Provider Student in an Organized Health Care Education/Training Program; PCP Nurse Practitioner Family; Visit Provider Physician Assistant
DX: N17.9 Acute kidney failure, unspecified (principal); I13.0 Hypertensive heart and chronic kidney disease with heart failure and stage 1 through stage 4 chronic kidney disease, or unspecified chronic kidney disease; I50.9 Heart failure, unspecified; N18.9 Chronic kidney disease, unspecified; E11.22 Type 2 diabetes mellitus with diabetic chronic kidney disease; E78.00 Pure hypercholesterolemia, unspecified; E78.5 Hyperlipidemia, unspecified; K21.9 Gastro-esophageal reflux disease without esophagitis; Z96.82 Presence of neurostimulator; Z79.4 Long term (current) use of insulin
CPT/HCPCS: 36415; 71045; 80048; 80053; 81001; 82010; 82803; 82948; 83036; 83735; 85025; 87086; 93306; 96361; 96365; 96372; 96375; 99285; A9270; G0378; J0696; J1650; J1815; J7120

== ENCOUNTER 2024-12-16 12:23 | Inpatient (IN) | payer MEDICARE, BC, SELFPAY ==
--- NOTE | ~2024-12-16 | CT_ITS ---
History: Weakness. PROCEDURE: CT head without contrast. COMPARISON: 03/13/2014 TECHNIQUE: Axial imaging of the head performed from the skull base to the vertex without IV contrast. Sagittal a nd coronal reformations obtained. DLP: 605 mGy-cm FINDINGS: The ventricles are enlarged. The dilatation of the ventricles is proportional to the degree of sulcal prominence, not uncommon in the senescent brain. Decreased attenuation is identified within the periventricular white matter, likely secondary to micr ovascular ischemic disease, in a patient of this age. There is no mass, mass effect or midline shift. There is no abnormal extra-axial fluid collection or intracranial hemorrhage. Visualized paranasal sinuses are clear. The mastoid air cells are well aerated. No acute displaced fractures within the overlying cranium. Impression: No acute intracranial hemorrhage or suspicious mass effect. Reviewed, dictated and finalized at location A. Impression: No acute intracranial hemorrhage or suspicious mass effect.
--- NOTE | ~2024-12-16 | XR_ITS ---
CHEST RADIOGRAPH, PA AND LATERAL CLINICAL HISTORY: weakness . COMPARISON: 10/31/2024 TECHNIQUE: PA and lateral views of the chest. FINDINGS Dorsal column stimulator device is noted. The remainder of the cardiomediastinal silhouette is otherwise unremarkable. The lungs are clear. IMPRESSION: No focal infiltrate or effusion. Reviewed, dictated and finalized at location A.
[2024-12-16 12:18] VITALS: BP 95/66; PULSE 90; RESP 20; TEMP 36.6; O2SAT 98
--- NOTE | 2024-12-16 12:27 | ECG_ITS ---
Test Date: 2024-12-16 12:34:18 Measurements Intervals [place] Rate: 91 P: 42 IN: 237 QRS: -16 QRSD: 95 T: 91 QT: 369 QTc: 454 Interpretive Statements SINUS RHYTHM WITH FIRST DEGREE AV BLOCK LEFT VENTRICULAR HYPERTROPHY WITH ST-T CHANGE INFERIOR INFARCT, AGE INDETERMINATE ANTEROSEPTAL INFARCT, AGE INDETERMINATE BASELINE ARTIFACT- I, II, III, AVR, AVL, AVF, V6 ABNORMAL ECG No previous ECG available for comparison Electronically Signed On 12-16-2024 12:57:09 CDT by Gigi Zaldivar D.O.
--- OUTSIDE RECORDS SUMMARY | 2024-12-16 12:35 | XMS_ITS | Patient Health Record ---
Author Organization [facility] valle Billing Info Address [address] [place] [address] Care Team Providers Care Manager Creative Name Role Phone CHAPITO CALDERA DO Primary [...] tablet Orally BID Active FreeStyle Sandhya 2 Capay Systm E11.65 for 90 days 01/09/2022 Active FreeStyle Sandhya 2 Sensor - E11.65 change every 2 weeks 01/09/2022 Active Immunizations Vaccine Route Administration Date Status Comme praneeth Rosado (ZOSTAVAX) sub Q 12/03/2011 Administered [facility] [id number] FLU (Past vaccine of unknown type) Unknown 02/05/2021 Administered zCOVID-19 (Moderna) 12+yrs, NO PRES Unknown 07/17/2020 Administered zCOVID-19 (Moderna) 12+yrs, NO PRES Unknown 08/13/2020 Administered zCOVID-19 (Moderna Booster) 18+yrs, NO PRES Unknown 02/05/2021 Administered Social History Tobacco Use: Social History Observation Description Date Details (start date - stop date) Never Smoker NA - NA Tobacco Status: Question Answer Notes Patient is a never smoker Problems Problem Type SNOMED Code ICD Code Onset Dates Problem Status W/U Status Risk Notes Problem 45622163 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 Problem 73835977 Type 2 diabetes mellitus with diabetic neuropathy, unspecified (E11.40) Active confirmed Problem 67451419 Type 2 diabetes mellitus with hyperglycemia (E11.65) Active confirmed Problem 28151878 Mixed hyperlipidemia (E78.2) Active confirmed Problem 40133601 Essential (prima ry) hypertension (I10) Active confirmed Problem 563029778 Hyperlipidemia (E78.5) Active confirmed Problem 651896646 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) Active confirmed Problem Chronic pain disorder (G89.4) Active confirmed Problem 559644924 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) Active confirmed Plan Of Treatment Pending Test Test Name Order Date Hemoglobin A1c ([id number]) 04/02/2021 Hemoglobin A1c ([id number]) 08/18/2018 CBC (INCLUDES DIFF/PLT) (Q-6399) 016 ALBUMIN, RANDOM URINE W/CREATININE (Q-65 17) 12/04/2015 LIPID PANEL, STANDARD (Q-7600) 6 Comprehensive Metabolic Panel(Q-50999) 0 12/04/2015 TSH (Q-899) 12/04/2015 Insurance Providers Payer Name Payer Address Payer Phone Subscriber Number Group Number Insured Name Patient Relationship to Insured Coverage Start Date Coverage End Date [id number] PPO OOS [address] [place], [place] [id number] Ceci Villarreal Self - patient is the insured 6 2 Medical (General) History Medical History History ICD Code 2013 CHF HTN DM II for 34 yrs 2008 [place] Palsy 2012 CVA 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
--- OUTSIDE RECORDS SUMMARY | 2024-12-16 12:35 | XMS_ITS | Patient Health Record ---
Author Organization [facility] Address [address] [address] Care Team Providers Care Direct Selling Counselor Name Role Phone Chinmay Martinez M.D. Primary Care Provider Rodrigo Garibay, Minerva Unavailable [phone] Reason For Referral No Information Medications Medication [...] TAKE 1 TABLET BY TWICE A DAY NEEDED; Duration: 90 Active Lisinopril 40 MG take 1 [...] Risk Notes Problem Thoracic and lumbosacral neuritis (147549069) Lumbar/thoracic radiculitis (724.4) 09/29/19 14 Active confirmed [facility] 4182- Problem Degeneration of lumbar intervertebral disc (44162743) Degeneration disc disease, lumbosacral intervertebral (722.52) 09/29/19 14 Active confirmed [facility]104 4182- Problem Lumbar spondylosis (861750770) Lumbar spondylosis (M47.816) 09/29/19 14 Active confirmed [facility] 4182- Plan Of Treatment No Information Insurance Providers Payer Name Payer Address Payer Phone Subscriber Number Group Number Insured Name Patient Relationship to Insured Coverage Start Date Coverage End Date [place] [address] [place] [phone] [id number] Ceci Villarreal Self - patient is the insured Medical (General) History Surgical History Surgery Date(Month/Year) Hysterectomy; 09/28/2013 Carpal tunnel release; 09/28/2013 Cholecystecomy; 09/28/2013 Appendectomy; 09/28/2013 spinal cord stimulator implant; 09/30/19 15 Tonsillectomy; 09/28/2013
--- OUTSIDE RECORDS SUMMARY | 2024-12-16 12:35 | XMS_ITS | Clinical Summary ---
Author Organization [facility] Address [address] [place] [address] Care Team Providers Care Tripe Washer Name Role Phone Lisset Luis NP Primary Care Provider [phone] Shani Power MD Unavailable Gabriele Doshi MD Unavailable [phone] Allergies Active Allergy Reactions Criticality Noted Date [...] 2 diabetes mellitus without complication, unspecified whether exterminator helper insulin use (HCC) USE TO INJECT THREE TIMES DAILY DIRECTED 100 each 11 4 Active Active Problems Problem Noted Date Diagnosed Date Essential tremor 03/22/2024 Assessment & Plan (03/22/2024 2:11 PM CRAFT SUPERINTENDENT): Patient presents with 5-years of progressive, bilateral, [...] Simvastatin 10mg. Last lipid panel: 02/27/23 LDL=67, MJ=564. Renal artery stenosis 04/14/2023 CKD stage 3 [...] Type Department Care Team Description 10/31/2024 Telephone [facility] Diabetes and Endocrinology [address] [place] [phone] Heaven Francois, PEOPLESOFT Med Management from Last 3 Months Surgical History Surgery Date Site/Laterality Comments APPENDECTOMY BLADDER SURGERY CHOLECYSTECTOMY HYSTERECTOMY TOE SURGERY Medical History Medical History Date Comments Type 2 diabetes mellitus Hypertension Colon cancer (HCC) CVA (cerebral vascular [...] on file Legal Sex Female 3:27 AM CRAFT SUPERINTENDENT Gender Identity Not on file Sexual Orientation Not on file Obstetrics History Last Filed Vital Signs Vital Sign Reading Time Taken Comments Blood Pressure 177/69 03/22/2024 1:00 PM CRAFT SUPERINTENDENT Pulse 96 03/22/2024 1:00 PM CRAFT SUPERINTENDENT Temperature 36.4 C (97.5 F) 03/22/2024 1:00 PM CRAFT SUPERINTENDENT Respiratory Rate 16 01/25/2024 11:39 AM CDT Oxygen Saturation 97% 12/01/2023 2:39 PM CDT Inhaled Oxygen Concentration - - Weight 76.2 kg (168 lb) 03/22/2024 1:00 PM CRAFT SUPERINTENDENT Height 162.6 cm (5' 4.02) 01/25/2024 11:39 [...] 02/27/2023, 02/02/2023 Albumin Creatinine Ratio, Urine 03/11/2024 3 Fall Risk Assessment 07/07/2024 07/07/2023, 03/17/20 23 Hemoglobin A1C 07/24/2024 01/25/2024, 07/16, 02/02/2023 Osteoporosis Screening-Bone Density Scan 11/28/2024 11/28/2022 Influenza Vaccine (#1) 2025 4, 01/02/2023, 03/01/2022, Additional history exists Foot Exam 01/24/2025 01/25/2024 Dilated Eye Exam 03/14/2025 03/14/2024 Depression Screening 03/22/2025 03/22/2024, 03/17/20 23 Pneumococcal vaccine 65+ Completed 09/19/2016, 05/2009 Zoster Vaccine Completed 10/26/2018, 08/16, 08/06/2018, Additional history exists Procedures Procedure Name Priority [...] 01/25/2024 11:4 5 AM CDT Heaven Francois PEOPLESOFT POINT OF CARE TEST ORDERA BLES Final [...] 35 Units/L [facility] SCRIBED eGFR in NonAfrican Andorran 41 >=60 - NA [facility] Blood 02/27/2023 8:44 AM CDT us Historical Provider LAB BLOOD ORDERABLES Edit ed Result - Final [facility] from Last 3 Months or Most Recently Relevant to Health Maintenance Insurance MEDICARE [facility] MEDICARE BLUE ACCESS OOS Care Teams Tripe Washer Relationship Specialty Start Date End Date Lisset Luis NP PCP - General Family Medicine 04/14/23 [place] [address] [address], [place] [address] Consulting Physician Endocrinology Diabetes & Metabolism 08/12/23 [place] [address] [address] [place] [address] Referring Physician Nephrology 01/25/24
--- OUTSIDE RECORDS SUMMARY | 2024-12-16 12:35 | XMS_ITS | Referral Summary ---
Author Organization [facility] Address [address] [place] [phone] Care Team Providers Care Kiln Tester Name Role Phone Lisset Luis KNITTING MACHINE OPERATOR HELPER Primary Care Provider [phone] Shani Power MD Unavailable Gabriele Doshi MD Unavailable [phone] Encounters Date Type Department Care Team Description 10/31/2024 Telephone [facility] Medical Group Diabetes and Endocrinology [address] [place] [phone] Heaven Francois NP Med Management from [...] 2 diabetes mellitus without complication, unspecified whether medical terminologist insulin use (HCC) USE TO INJECT THREE TIMES DAILY DIRECTED 100 each 11 4 Active Active Problems Problem Noted Date Diagnosed Date Essential tremor 03/22/2024 Assessment & Plan (03/22/2024 2:11 PM STAMPING MACHINE OPERATOR): Patient presents with 5-years of progressive, bilateral, [...] Simvastatin 10mg. Last lipid panel: 02/27/23 LDL=67, EZ=269. Renal artery stenosis 04/14/2023 CKD stage 3 [...] on file Legal Sex Female 3:27 AM STAMPING MACHINE OPERATOR Gender Identity Not on file Sexual Orientation Not on file Last Filed Vital Signs Vital Sign Reading Time Taken Comments Blood Pressure 177/69 03/22/2024 1:00 PM STAMPING MACHINE OPERATOR Pulse 96 03/22/2024 1:00 PM STAMPING MACHINE OPERATOR Temperature 36.4 C (97.5 F) 03/22/2024 1:00 PM STAMPING MACHINE OPERATOR Respiratory Rate 16 01/25/2024 11:39 AM CDT Oxygen Saturation 97% 12/01/2023 2:39 PM CDT Inhaled Oxygen Concentration - - Weight 76.2 kg (168 lb) 03/22/2024 1:00 PM STAMPING MACHINE OPERATOR Height 162.6 cm (5' 4.02) 01/25/2024 11:39 [...] 01/25/2024 11:4 5 AM CDT Heaven Francois KNITTING MACHINE OPERATOR HELPER POINT OF CARE TEST ORDERA BLES Final Result * Albumin Creatinine Ratio, Urine (03/11/2023 12:31 PM CDT) Pathologist [facility] SCRIBED Creatinine, Urine 54 20 - 275 [facility] SCRIBED Microalbumin 0.9 NA - NA [facility] SCRIBED Microalb/Creat Ratio 17 <30 - NA [facility] Urine 03/11/2023 12:3 1 PM CDT Historical Provider MD LAB URINE ORDERABLES Edit ed Result - Final Performing Organization Address City/[facility]/ZIP Co de Phone Number [facility] * (ABNORMAL) Lipid panel (02/27/2023 8:44 AM CDT) Pathologist [facility] SCRIBED Cholesterol, Total 153 <200 - NA [...] 35 Units/L [facility] SCRIBED eGFR in NonAfrican Romanian 41 >=60 - NA [facility] Blood 02/27/2023 8:44 AM CDT Historical Provider LAB BLOOD ORDERABLES Edit ed Result - Final [facility] from Last 3 Months or Most Recently Relevant to Health Maintenance Insurance MEDICARE [employer] [facility] MEDICARE Mashed jobs OOS Care Teams Kiln Tester Relationship Specialty Start Date End Date Lisset Luis NP PCP - General Family Medicine 04/14/23 [place] [address] [facility] [address] [place] [address] Consulting Physician Endocrinology Diabetes & Metabolism 08/12/23 [place] [address] [facility] [address], [place] [address] Referring Physician Nephrology 01/25/24
[2024-12-16 12:48] VITALS: BP 120/63; PULSE 91; RESP 12; O2SAT 100
--- NOTE | 2024-12-16 12:57 | ED_ITS ---
HPI - Weakness General Chief complaint: Weakness Stated complaint: weakness Time Seen by Provider: 12/16/24 12:28 History of Present Illness HPI Narrative: 84-year-old female with a past medical history including insulin-dependent diabetes and recent hospitalization for dehydration and urinary tract infection. Patient presents to the emergency department from her [place] [facility] facility for concerns of 2 weeks of profound weakness, voluminous diarrhea with multiple bowel movements of loose stool. Patient states her blood sugars are also been fluctuating up to 500 range recently. She endorses polyuria, polydipsia and diarrhea. Denies any chest pain shortness a breath. She has a history of a stroke with right-sided facial deficits but no weakness in the extremities. Denies any traumatic injuries. No complaints of fever, chills, back pain, abdominal pain. Symptoms going on for several weeks and states that a week ago she was also given a new course of antibiotics for suspected UTI by her primary doctor but is not sure the name of them. Related Data Home Medications ?Medication ?Instructions ?Recorded ?Confirmed ?Last Taken ?Type clonidine HCl 0.2 mg tablet 0.2 mg PO Q12H 05/04/23 12/16/24 Unknown History furosemide 40 mg tablet 40 mg PO BID 05/04/23 12/16/24 Unknown History semaglutide 1 mg/dose (4 mg/3 mL) 2 mg subcut WEEKLY 05/04/23 12/16/24 12/10/24 History subcutaneous pen injector (Ozempic) sertraline 50 mg tablet 100 mg PO HS 05/04/23 12/16/24 Unknown History simvastatin 10 mg tablet 20 mg PO DAILY 05/04/23 12/16/24 Unknown History spironolactone 25 mg tablet 25 mg PO DAILY 05/04/23 12/16/24 Unknown History carvedilol 25 mg tablet (Coreg) 50 mg PO .Q12HR 10/31/24 12/16/24 Unknown History cholecalciferol (vitamin D3) 1,250 1,250 mcg PO .biweekly 10/31/24 12/16/24 12/12/24 History mcg (50,000 unit) capsule ferrous sulfate 325 mg (65 mg 325 mg PO DAILY 10/31/24 12/16/24 Unknown History iron) tablet hydrocodone 5 mg-acetaminophen 325 1 tablet PO Q12H 10/31/24 12/16/24 Unknown History mg tablet melatonin 10 mg capsule 10 mg PO HS PRN sleep 10/31/24 12/16/24 Unknown History omeprazole 20 mg capsule,delayed 20 mg PO HS 10/31/24 12/16/24 Unknown History release terazosin 2 mg capsule 2 mg PO HS 10/31/24 12/16/24 Unknown History allopurinol 100 mg tablet 100 mg PO DAILY 12/16/24 12/16/24 Unknown History colchicine 0.6 mg tablet 0.6 mg PO DAILY 12/16/24 12/16/24 Unknown History diphenhydramine HCl 25 mg capsule 50 mg PO HS 12/16/24 12/16/24 Unknown History (Banophen) gabapentin 300 mg capsule 300 mg PO TID 12/16/24 12/16/24 Unknown History insulin degludec 200 unit/mL (3 60 unit subcut HS 12/16/24 12/16/24 Unknown History mL) subcutaneous pen (Tresiba FlexTouch U-200 insulin) insulin lispro 100 unit/mL 18 unit subcut TIDWM 12/16/24 12/16/24 Unknown History subcutaneous cartridge (Humalog U-100 Insulin) ropinirole 0.25 mg tablet 0.25 mg PO HS 12/16/24 12/16/24 Unknown History Allergies Allergy/AdvReac Type Severity Reaction Status Date / Time codeine Allergy Mild Unknown Verified 12/16/24 18:20 Penicillins Allergy Mild Unknown Verified 12/16/24 18:20 latex Allergy Rash Verified 12/16/24 18:20 morphine Allergy Hives Verified 12/16/24 18:20 shrimp Allergy Swelling Verified 12/16/24 18:20 amlodipine (From Norvasc) AdvReac Mild Unknown Verified 12/16/24 18:20 atorvastatin AdvReac Mild Unknown Verified 12/16/24 18:20 erythromycin base AdvReac Mild Unknown Verified 12/16/24 18:20 Review of Systems 2 Review of Systems: As reviewed above in HPI [facility] Past Medical History Medical History Chronic back pain Gout Compression fracture Basal cell carcinoma of skin Anemia Osteoarthritis Gastroesophageal reflux disease Chronic kidney disease, stage 3b Hyperlipidemia Hypertension Insulin dependent diabetes mellitus Heart failure, type unknown Cerebrovascular accident residual right sided weakness Gout Surgical History Surgical History Status post insertion of spinal cord stimulator Family History Family History Daughter Cancer Mother Diabetes mellitus Sibling Diabetes mellitus Social History Social History Social History: Surrogate medical decision maker: Paige Goncalves, daughter. Code status: Full code. Smoking status: Never smoker Alcohol intake: never Substance use: former Substance use type: marijuana Other substance usage details: dtr grows marijuana, intake variety of routes Last use: 2-3 months ago Do You Feel Safe in your Home?: Yes Lack of Transportation: No Lack of Food: Never True Current Housing: I Have Housing Concerned About Future Housing: No Difficulty Paying Gas/Electric Bills: No Difficulty Paying for Meds: No Currently Unemployed: No Education: Decline to Answer Difficulty w/ Childcare or Family Care: No Living arrangements: assisted living Occupation/Education: retired Spiritual care concerns: No Exam 2 Narrative: GENERAL: [Well-appearing, well-nourished, and in no acute distress.] HEAD: [Normocephalic, atraumatic.] EYES: [PERRLA and EOMI.] ENT: Nares clear, no rhinorrhea or epistaxis. Mucous membranes dry. NECK: Supple. CHEST: [Clear to auscultation. No respiratory distress.] HEART: [Regular rate and rhythm]. No murmur heard. [Normal peripheral pulses.] ABDOMEN: [Soft, nondistended], [nontender], [No rigidity or guarding] EXTREMITIES: Normal range of motion. [No edema.] SKIN: Warm, dry, no rash. NEURO: No new focal deficits. Right-sided facial droop chronic, no arm or leg asymmetry or sensory deficits. Alert and oriented [x3.] PSYCH: [Normal mood and affect.] Course Vital Signs Vital signs: Vital Signs Temperature 36.6 C 12/16/24 12:18 Pulse Rate 90 12/16/24 12:18 Respiratory Rate 20 12/16/24 12:18 Blood Pressure 95/66 L 12/16/24 12:18 Pulse Oximetry 98 12/16/24 12:18 Oxygen Delivery Room Air 12/16/24 12:18 Temperature 36.6 C 12/16/24 12:18 Pulse Rate 95 12/16/24 16:50 Respiratory Rate 15 12/16/24 16:50 Blood Pressure 129/74 12/16/24 16:50 Pulse Oximetry 100 12/16/24 16:50 Oxygen Delivery Room Air 12/16/24 12:18 MDM - Weakness MDM Narrative Medical decision making narrative: 84-year-old female with a past medical history including insulin-dependent diabetes and recent hospitalization for dehydration and urinary tract infection. Patient presents to the emergency department from her [place] [facility] facility for concerns of 2 weeks of profound weakness, voluminous diarrhea with multiple bowel movements of loose stool. Patient states her blood sugars are also been fluctuating up to 500 range recently. She endorses polyuria, polydipsia and diarrhea. Denies any chest pain shortness a breath. She has a history of a stroke with right-sided facial deficits but no weakness in the extremities. Denies any traumatic injuries. No complaints of fever, chills, back pain, abdominal pain. Symptoms going on for several weeks and states that a week ago she was also given a new course of antibiotics for suspected UTI by her primary doctor but is not sure the name of them. Patient appears dehydrated with dry mucous membranes combined with her history of polyuria and polydipsia. She has some soft blood pressures here with blood pressure 95/66 but no tachycardia or fever. Blood pressure improved fluids. She is given 2 L of LR, new blood pressure 120/63. Remains afebrile. C diff panel was ordered in waiting sample. Given patient's vague complaints of generalized weakness with no new focal neurological deficits a broad workup was ordered to evaluate for electrolyte deficiencies from a dehydration, intracranial process such as new stroke cardiac etiology, urinary infection or other infectious pathology. CBC, CMP, troponin, EKG, chest x-ray, CT of the head obtained. Workup shows no leukocytosis or anemia. Normal platelet count. Blood gas shows normal pH, low CO2 and bicarb likely from slightly uremic acidosis with elevated BUN and GI losses. Normal ketones, normal study elevated glucose. Patient has an MIGUEL ÁNGEL with an elevated BUN and creatinine likely from dehydration and GI losses. She felt better after fluid resuscitation. Glucose 186. LFTs normal, troponin normal. Negative beta hydroxybutyrate. Urinalysis consistent with urinary tract infection she was started on Rocephin. Previous cultures did not show any growth. Chest x-ray shows no infiltrate or effusion. Head CT without any acute findings. Given patient's acute kidney injury with GI losses and dehydration as well as elevated BUN she will require admission to the hospital for continued rehydration and re-evaluation with repeat labs. I discussed the case with the hospitalist mid-level provider Luiza who accepted the patient to a hospital admission at this time. Patient is safe for admission at this time and improved after treatment in the ER. Medical Records Attestation: I reviewed the patient's medical records. Lab Data Attestation: I reviewed the patient's lab results. 12/16/24 12:48 12/16/24 12:47 Labs: Lab Results 12/16/24 12/16/24 12/16/24 Range/Units 12:47 12:48 13:33 WBC 9.3 (4.5-10.0) K/mm3 RBC 4.30 (4.2-5.4) M/mm3 Hgb 12.1 (12.0-15.0) g/dL Hct 36.3 L (37.0-47.0) % MCV 84.4 (80-100) fl MCH 28.1 (26-34) pg MCHC 33.3 (32-36) g/dl RDW 15.9 H (11.5-14.5) % Plt Count 232 (150-375) k/mm3 MPV 10.3 (7.4-10.4) fl Immature Gran % (Auto) 0.8 H (0-0.5) % Neut % (Auto) 66.8 (45.5-73.1) % Lymph % (Auto) 22.2 (18.3-44.2) % [place] % (Auto) 8.5 (2.6-8.5) % Eos % (Auto) 1.3 (0-4.4) % Baso % (Auto) 0.4 (0.2-1.2) % Lymph # (Auto) 2.06 (0.9-3.2) K/mm3 [place] # (Auto) 0.8 H (0.1-0.6) K/mm3 Eos # (Auto) 0.1 (0-0.3) K/mm3 Baso # (Auto) 0.0 (0.0-0.1) K/mm3 Abs Immat Gran (auto) 0.07 H (0.00-0.031) K/mm3 Absolute Neuts (auto) 6.2 (1.3-6.7) K/mm3 Absolute Nucleated RBC 0.000 (0.0-0.012) K/mm3 Nucleated RBC % 0.0 (0.0-0.2) % Sodium 133 L (137-145) mmol/L Potassium 3.7 (3.4-5.0) mmol/L Chloride 99 (98-107) mmol/L Carbon Dioxide 19 L (22-30) mmol/L Anion Gap 15 H (4-12) mmol/L BUN 75 H D (7-17) mg/dL Creatinine 2.87 H (0.7-1.0) mg/dL Estim Creat Clear Calc 12 ml/min Estimated GFR 16 L (59 - ) Glucose 186 H (65-110) mg/dL Calcium 9.2 (8.4-10.2) mg/dL Total Bilirubin 0.4 (0.2-1.3) mg/dL AST 44 H (14-36) U/L ALT 35 (6-35) U/L Alkaline Phosphatase 97 (38-126) U/L Troponin I < 0.012 (0.000-0.034) ng/mL Total Protein 7.8 (6.3-8.2) g/dL Albumin 4.3 (3.5-5.1) g/dL Beta-Hydroxybutyrate/Acetoacetate 0.11 (0.02-0.27) mmol/L Urine Color Yellow (Yellow) Urine Appearance Cloudy H (Clear) Urine pH 5.5 (5.0-9.0) Ur Specific [place] 1.014 (1.001-1.035) Urine Protein 1+ H (Negative) mg/dL Urine Glucose (UA) Negative (Negative) mg/dL Urine Ketones Negative (Negative) mg/dL Ur Blood (Man) Trace (Negative) Urine Nitrate Negative (Negative) Urine Bilirubin Negative (Negative) Urine Urobilinogen 0.2 (<2.0) mg/dL Add Ur Microanalysis Reviewed Leukocyte Esterase Rfl 3+ H (Negative) EDUARDO/UL Urine RBC 0-2 (0-2) /hpf Urine WBC >100 H (0-3) /hpf Ur Squamous Epith Cells None seen (Few) /hpf Urine Bacteria None seen /hpf Urine Casts 3-5 ABG Data ABG results: 12/16/24 14:13 VBG pH 7.394 VBG pCO2 28.7 L* VBG pO2 135.7 H VBG HCO3 17.1 L O2 Delivery Device Room air O2 Liters/Min 0.0 FiO2 21 Attestation: I personally reviewed and interpreted this ABG as follows: Interpretation: Compensated pH, low CO2 and bicarb from uremic acidosis and GI losses of bicarb Imaging Data Attestation: I personally reviewed and interpreted this imaging study as follows: My impression: Impressions Head CT 12/16/24 13:13 Impression: No acute intracranial hemorrhage or suspicious mass effect. Chest X-Ray 12/16/24 13:28 IMPRESSION: No focal infiltrate or effusion. Critical Care Time Critical Care Time Critical Care Time: Yes Total Critical Care Time: 35 Discharge Plan Discharge Clinical Impression: Acute dehydration, Recurrent UTI Acute on chronic kidney failure Qualifiers: Acute renal failure type: unspecified Chronic kidney disease stage: stage 4 (GFR 15-29) Qualified Code(s): N17.9 - Acute kidney failure, unspecified Diarrhea Qualifiers: Diarrhea type: presumed infectious Qualified Code(s): R19.7 - Diarrhea, unspecified Patient Disposition: Still a Patient Condition: Stable
[2024-12-16 13:00] LABS: Hematocrit 36.3 % (37.0-47.0); Hemoglobin 12.1 g/dL (12.0-15.0); Immature Granulocyte Percent A 0.8 % (0-0.5); Lymphocytes Absolute Auto 2.06 K/mm3 (0.9-3.2); Mean Corpuscular HGB Conc 33.3 g/dl (32-36); Mean Corpuscular Hemoglobin 28.1 pg (26-34); Mean Corpuscular Volume 84.4 fl (80-100); Nucleated Red Blood Cells Absolute Auto 0.000 K/mm3 (0.0-0.012); Nucleated Red Blood Cells Perc 0.0 % (0.0-0.2); Platelet Count Result 232 k/mm3 (150-375); Red Blood Count 4.30 M/mm3 (4.2-5.4); White Blood Count 9.3 K/mm3 (4.5-10.0)
[2024-12-16 13:18] LABS: Alanine Aminotransferase 35 U/L (6-35); Albumin Level 4.3 g/dL (3.5-5.1); Alkaline Phosphatase 97 U/L (38-126); Anion Gap 15 mmol/L (4-12); Aspartate Amino Transferase 44 U/L (14-36); Bilirubin,Total 0.4 mg/dL (0.2-1.3); Blood Urea Nitrogen 75 mg/dL (7-17); Calcium 9.2 mg/dL (8.4-10.2); Carbon Dioxide 19 mmol/L (22-30); Chloride 99 mmol/L (98-107); Estimated CRCL calculation 12 ml/min; Estimated Glomerular Filt Rate 16; Glucose 186 mg/dL (65-110); Potassium 3.7 mmol/L (3.4-5.0); Sodium 133 mmol/L (137-145); Total Protein 7.8 g/dL (6.3-8.2)
[2024-12-16 13:30] LABS: Troponin I < 0.012 ng/mL (0.000-0.034)
--- NOTE | 2024-12-16 13:36 | PCRCNOTE ---
CALLED AND SPOKE TO ESarahy CHARGE NURSE; SOMEONE IS TO CALL WHEN VBG HAS BEEN OBTAINED.
[2024-12-16] MEDS: LACTATED RINGERS 1,000 ML 999 ML IV CONT ×2 (13:41)
[2024-12-16 14:02] VITALS: BP 133/92; PULSE 93; RESP 20; O2SAT 99
[2024-12-16 14:14] LABS: Add Urine Microscopic? YES; Appearance Urine Cloudy (Clear); Glucose Urine UA Negative (Negative); Leukocyte Esterase Ur 3+ LEU/UL (Negative); Need Manual Microscopic Reviewed; Nitrate Urine Negative (Negative); Specific Grav Ur 1.014 (1.001-1.035)
[2024-12-16 14:18] LABS: Fractional Inspired Oxygen 21 %; HCO3 VBG 17.1 mEq/l (24.0-30.0); PO2 VBG 135.7 mmHg (35.0-45.0); pH VBG 7.394 (7.300-7.400)
[2024-12-16 14:21] LABS: Liters per Minute 0.0 LPM; PCO2 VBG 28.7 mmHg (42.0-48.0)
[2024-12-16 14:38] LABS: Beta-Hydroxybutyrate/Acetoacetate 0.11 mmol/L (0.02-0.27)
--- NOTE | 2024-12-16 15:31 | PM.IMHP ---
H&P: HPI History of Present Illness Date/Time: 12/16/24 15:31 Chief Complaint: Weakness, Nausea, Diarrhea Narrative: 84 y/o F with PMH of insulin-dependent diabetes, stroke, hypertension, hyperlipidemia, congestive heart failure, gastroesophageal reflux disease, gout, anemia, and chronic kidney disease presents here with weakness, nausea, and diarrhea. The patient presents here via EMS from [facility] for further evaluation of generalized weakness, nausea, and diarrhea. She reports onset of the symptoms approximately 2 weeks ago. She reports the diarrhea has been constant since onset and occur every time she is in the restroom, even to urinate. She describes the diarrhea as large in volume which started black (on iron) which she has since stopped and stool is now brown. Estimates she has had 5-6 BMs since she woke up this morning. She denies associated fever, chills, abdominal pain, or blood in her stool. Additionally she is reporting worsening fluctuations in her glucose levels reporting that she has been up in the 500 range at her facility. Reports associated polyuria and polydipsia. She denies dysuria. Of note, the patient was recently diagnosed with a UTI approximately 1 week ago and prescribed a new course of antibiotics. The patient is unsure of the name of the antibiotic but has completed the course. This is an 84-year-old female with history of insulin-dependent diabetes, stroke, hypertension, hyperlipidemia, congestive heart failure, gastroesophageal reflux disease, gout, anemia, and chronic kidney disease who presented to the emergency department via private vehicle with complaints of vomiting and high blood sugar. She moved into an assisted living facility 3 weeks ago and she admits that she has not been able to manage her glucose well since that time. She states that her blood sugars have been ranging anywhere from 300 to 500 which is unusual for her. She has been thirsty and is urinating a lot with urgency and occasional dysuria. She is nauseated and endorses occasional nonbloody and nonbilious emesis. She has had a couple of loose stools but not overt diarrhea. She is now feeling weak and thinks that she is likely dehydrated. She denies fever, chills, sweats, blurry vision, sinus congestion, sore throat, cough, chest pain, shortness of breath, abdominal pain, hematemesis, melena, hematochezia, and hematuria. Review of Systems Review of Systems: All systems reviewed & are unremarkable except as noted in HPI and below PMFSH Past Medical History Medical History Chronic back pain Gout Compression fracture Basal cell carcinoma of skin Anemia Osteoarthritis Gastroesophageal reflux disease Chronic kidney disease, stage 3b Hyperlipidemia Hypertension Insulin dependent diabetes mellitus Heart failure, type unknown Cerebrovascular accident residual right sided weakness Gout Surgical History Surgical History Status post insertion of spinal cord stimulator Family History Family History Daughter Cancer Mother Diabetes mellitus Sibling Diabetes mellitus Social History Social History Social History: Surrogate medical decision maker: Paige Goncalves, daughter. Code status: Full code. Smoking status: Never smoker Alcohol intake: never Substance use: former Substance use type: marijuana Other substance usage details: dtr grows marijuana, intake variety of routes Last use: 2-3 months ago Do You Feel Safe in your Home?: Yes Lack of Transportation: No Lack of Food: Never True Current Housing: I Have Housing Concerned About Future Housing: No Difficulty Paying Gas/Electric Bills: No Difficulty Paying for Meds: No Currently Unemployed: No Education: Decline to Answer Difficulty w/ Childcare or Family Care: No Living arrangements: assisted living Occupation/Education: retired Spiritual care concerns: No Meds Home Medications and Allergies Home Medications ?Medication ?Instructions ?Recorded ?Confirmed ?Type clonidine HCl 0.2 mg tablet 0.2 mg PO Q12H 05/04/23 12/16/24 History furosemide 40 mg tablet 40 mg PO BID 05/04/23 12/16/24 History semaglutide 1 mg/dose (4 mg/3 mL) 2 mg subcut WEEKLY 05/04/23 12/16/24 History subcutaneous pen injector (Ozempic) sertraline 50 mg tablet 100 mg PO HS 05/04/23 12/16/24 History simvastatin 10 mg tablet 20 mg PO DAILY 05/04/23 12/16/24 History spironolactone 25 mg tablet 25 mg PO DAILY 05/04/23 12/16/24 History carvedilol 25 mg tablet (Coreg) 50 mg PO .Q12HR 06/16/25 08/01/25 History cholecalciferol (vitamin D3) 1,250 1,250 mcg PO .biweekly 10/31/24 12/16/24 History mcg (50,000 unit) capsule ferrous sulfate 325 mg (65 mg 325 mg PO DAILY 10/31/24 12/16/24 History iron) tablet hydrocodone 5 mg-acetaminophen 325 1 tablet PO Q12H 10/31/24 12/16/24 History mg tablet melatonin 10 mg capsule 10 mg PO HS PRN sleep 10/31/24 12/16/24 History omeprazole 20 mg capsule,delayed 20 mg PO HS 10/31/24 12/16/24 History release terazosin 2 mg capsule 2 mg PO HS 10/31/24 12/16/24 History allopurinol 100 mg tablet 100 mg PO DAILY 12/16/24 12/16/24 History colchicine 0.6 mg tablet 0.6 mg PO DAILY 12/16/24 12/16/24 History diphenhydramine HCl 25 mg capsule 50 mg PO HS 12/16/24 12/16/24 History (Banophen) gabapentin 300 mg capsule 300 mg PO TID 12/16/24 12/16/24 History insulin degludec 200 unit/mL (3 60 unit subcut HS 12/16/24 12/16/24 History mL) subcutaneous pen (Tresiba FlexTouch U-200 insulin) insulin lispro 100 unit/mL 18 unit subcut TIDWM 12/16/24 12/16/24 History subcutaneous cartridge (Humalog U-100 Insulin) ropinirole 0.25 mg tablet 0.25 mg PO HS 12/16/24 12/16/24 History Allergies Allergy/AdvReac Type Severity Reaction Status Date / Time codeine Allergy Mild Unknown Verified 12/16/24 18:20 Penicillins Allergy Mild Unknown Verified 12/16/24 18:20 latex Allergy Rash Verified 12/16/24 18:20 morphine Allergy Hives Verified 12/16/24 18:20 shrimp Allergy Swelling Verified 12/16/24 18:20 amlodipine (From [facility]) AdvReac Mild Unknown Verified 12/16/24 18:20 atorvastatin AdvReac Mild Unknown Verified 12/16/24 18:20 erythromycin base AdvReac Mild Unknown Verified 12/16/24 18:20 Vital Signs Vital Signs - 24 hr 12/16/24 12:18 12/16/24 12:48 12/16/24 14:02 Temperature 97.8 F Pulse Rate 90 91 93 Respiratory Rate 20 12 20 Blood Pressure 95/66 L 120/63 133/92 H Pulse Oximetry 98 100 99 Oxygen Delivery Room Air Exam Const: General: comfortable and no acute distress Other: , female, nontoxic appearance, elderly HENMT: Face/Nose/Sinus: Normal nares present Mouth: Yes dry mucous membranes Eyes: General: appearance normal, both eyes and all related structures Sclera: sclerae normal Pupils: Equal, round and reactive pupils present EOM: EOMs intact bilaterally Resp: Effort & Inspection: normal respiratory effort Auscultation: clear to auscultation bilaterally Cardio: Rate: regular rate Rhythm: regular rhythm Other: S1-S2 present without murmur, rub, ectopy GI: Other: Abdomen soft, nondistended, nontender. Hyperactive bowel sounds in all quadrants. Skin: General skin exam: normal color and no rashes or lesions noted Wounds: no wounds Neuro: Speech: normal speech Motor exam (neuro): 5/5 motor strength present throughout Sensory Exam: normal sensation Other: A&O x4, chronic right facial droop noted Extrem: General: normal to inspection Psych: Mental Status: mental status grossly normal Affect: normal affect Other: Good insight and judgment, pleasant H&P: Results Labs Labs: Short CBC 12/16/24 Range/Units 12:48 WBC 9.3 (4.5-10.0) K/mm3 Hgb 12.1 (12.0-15.0) g/dL Hct 36.3 L (37.0-47.0) % Plt Count 232 (150-375) k/mm3 [facility] 12/16/24 12:47 Sodium 133 L Potassium 3.7 Chloride 99 Carbon Dioxide 19 L BUN 75 H D Creatinine 2.87 H Glucose 186 H Calcium 9.2 Cardiac Enzymes 12/16/24 Range/Units 12:47 Troponin I < 0.012 (0.000-0.034) ng/mL Liver Function 12/16/24 Range/Units 12:47 Total Bilirubin 0.4 (0.2-1.3) mg/dL AST 44 H (14-36) U/L ALT 35 (6-35) U/L Alkaline Phosphatase 97 (38-126) U/L Albumin 4.3 (3.5-5.1) g/dL Urine 12/16/24 Range/Units 13:33 Urine Color Yellow (Yellow) Urine Appearance Cloudy H (Clear) Urine pH 5.5 (5.0-9.0) Ur Specific [place] 1.014 (1.001-1.035) Urine Protein 1+ H (Negative) mg/dL Urine Glucose (UA) Negative (Negative) mg/dL Assessment and Plan Assessment and plan (1) Acute on chronic kidney failure: Qualifiers: Acute renal failure type: unspecified Chronic kidney disease stage: stage 4 (GFR 15-29) Qualified Code(s): N17.9 - Acute kidney failure, unspecified; N18.4 - Chronic kidney disease, stage 4 (severe) Code(s): N17.9 - Acute kidney failure, unspecified; N18.9 - Chronic kidney disease, unspecified Status: Acute Assessment and Plan: - MIGUEL ÁNGEL superimposed on CKD, stage IIIB/4 with high suspicion for etiology due to hypovolemia. Patient also has recent history of dehydration and MIGUEL ÁNGEL requiring admission in October of 2024. - creatinine 2.87, BUN 75, GFR 16 upon admission - baseline creatinine highly variable within the last year, most recently 1.11 on 11/02/2024. Has ranged between 1.1 - 1.5. - IV fluids: 2L -> 125 mL/hr. Does have history of CHF, monitor tolerance. - UA showed possible indicators of infection, follow urine culture - monitor I&Os - trend renal function - will forego further workup and nephrology consultation at this time given etiologies likely hypovolemia, will trial IV fluids over the next 24 hours. If no improvement or worsening renal function consider workup and consultation. (2) Diarrhea: Qualifiers: Diarrhea type: presumed infectious Qualified Code(s): R19.7 - Diarrhea, unspecified Code(s): R19.7 - Diarrhea, unspecified Status: Acute Assessment and Plan: - presumed infectious, intermittent x2 weeks, large volume - check C diff and stool culture - no associated abdominal pain, will forego CT imaging at this time. If patient develops pain, consider imaging. - IV fluids - monitor renal function and white count (3) Recurrent UTI: Code(s): N39.0 - Urinary tract infection, site not specified Status: Acute Assessment and Plan: - UA: Cloudy, 1+ protein, 3+ leuk esterase, greater than 100 WBC - UC pending - previous micro reviewed, no previous resistances noted - started on Ceftriaxone on 12/16 (4) Insulin dependent diabetes mellitus: Status: Acute Assessment and Plan: - hypoglycemia protocol - POC blood glucose ACHS - home medication: Tresiba 60 units HS -> sub to 48u of Lantus HS, lispro 18 units t.i.d. with meals. Hold Ozempic (NF) - correct regimen ordered - low dose TIDWM and HS, based off BMI - A1C 9.0 on 10/31/2024 (5) Hypertension: Qualifiers: Hypertension type: unspecified Qualified Code(s): I10 - Essential (primary) hypertension Code(s): I10 - Essential (primary) hypertension Status: Acute Assessment and Plan: - chronic, currently 133/92. Upon presentation was mildly hypertensive with a BP of 95/66. Corrected with IV fluids. - hold Coreg, Lasix, and spironolactone. Resume when appropriate. - monitor Plan Diet: Diabetic GI Prophylaxis: N/a DVT Prophylaxis: SCDs IV fluids: 2L -> 125 mL/hr Lines/Tubes: Peripheral IV Code Status: DNR Quality VTE Prophylaxis VTE prophylaxis: mechanical ordered Hospitalist [facility] Advance Care Plan I have confirmed that the patient's Advanced Care Plan is present, code status is documented, or surrogate decision maker is listed in patient medical record.: Yes Medication Reconciliation I have utilized all available resources to obtain, update and review the patients current medications (includes all prescriptions, OTC, herbals, cannabis, and nutritional supplements).: Yes
[2024-12-16] MEDS: cefTRIAXone 1 GM in SODIUM CHLORIDE 0.9% IV 50 ML 100 ML IVPB (16:03)
[2024-12-16 16:50] VITALS: BP 129/74; PULSE 95; RESP 15; O2SAT 100
[2024-12-16 17:34] VITALS: BMI 26.2
[2024-12-16 17:34] LABS: Toxigenic C. Diff NEGATIVE (NEGATIVE)
--- NOTE | 2024-12-16 17:56 | ADMGEN ---
This patient, Ceci Hackett, was admitted to Virtual Bed 3rd Floor-1. Patient/family oriented to hospital policies and general routines including ID bracelet, bed and alarms, visiting hours, pain management, procedures, bathroom and other care routines, personal items, smoking policy, room service/diet, and visiting hours. Information on how to activate the Rapid Response Team has been discussed. Patient/Family are encouraged to report perceived risks to care and to ask questions if they do not understand what they are told or what they should do.
[2024-12-16] MEDS: LACTATED RINGERS 1,000 ML 125 ML IV CONT (20:04)
[2024-12-16 22:00] VITALS: BP 134/60; PULSE 97; RESP 18; TEMP 36.5; O2SAT 100
[2024-12-16] MEDS: diphenhydrAMINE HCl CAP 25 MG CAPSULE 50 MG PO (22:26)
[2024-12-16] MEDS: HYDROcodone/acetaminophen (*CRX) 5-325 MG TABLET 1 TAB PO (22:26)
[2024-12-16] MEDS: GABAPENTIN 300 MG CAPSULE PO (22:26)
[2024-12-16] MEDS: SERTRALINE HCL 50 MG TABLET 100 MG PO (22:26)
[2024-12-16] MEDS: TERAZOSIN HCL 1 MG CAPSULE 2 MG PO (22:27)
[2024-12-16] MEDS: INSULIN GLARGINE (*BKC) 100 UNITS/ML 48 UNITS SUB-Q (22:28)
[2024-12-16] MEDS: INSULIN ASPART (*BKC) 100 UNITS/ML SUB-Q (22:28)
[2024-12-17] MEDS: LACTATED RINGERS 1,000 ML 125 ML IV CONT (03:41)
[2024-12-17 06:00] VITALS: BP 138/64; PULSE 93; RESP 18; TEMP 36.8; O2SAT 96
[2024-12-17 06:17] LABS: Hematocrit 29.2 % (37.0-47.0); Hemoglobin 9.5 g/dL (12.0-15.0); Immature Granulocyte Percent A 0.7 % (0-0.5); Lymphocytes Absolute Auto 1.24 K/mm3 (0.9-3.2); Mean Corpuscular HGB Conc 32.5 g/dl (32-36); Mean Corpuscular Hemoglobin 27.7 pg (26-34); Mean Corpuscular Volume 85.1 fl (80-100); Nucleated Red Blood Cells Absolute Auto 0.000 K/mm3 (0.0-0.012); Nucleated Red Blood Cells Perc 0.0 % (0.0-0.2); Platelet Count Result 190 k/mm3 (150-375); Red Blood Count 3.43 M/mm3 (4.2-5.4); White Blood Count 5.4 K/mm3 (4.5-10.0)
[2024-12-17 06:58] LABS: Alanine Aminotransferase 25 U/L (6-35); Albumin Level 3.3 g/dL (3.5-5.1); Alkaline Phosphatase 90 U/L (38-126); Anion Gap 8 mmol/L (4-12); Aspartate Amino Transferase 31 U/L (14-36); Bilirubin,Total 0.3 mg/dL (0.2-1.3); Blood Urea Nitrogen 55 mg/dL (7-17); Calcium 8.8 mg/dL (8.4-10.2); Carbon Dioxide 22 mmol/L (22-30); Chloride 108 mmol/L (98-107); Estimated CRCL calculation 21 ml/min; Estimated Glomerular Filt Rate 32; Glucose 111 mg/dL (65-110); Magnesium 1.6 mg/dL (1.6-2.3); Potassium 3.1 mmol/L (3.4-5.0); Sodium 138 mmol/L (137-145); Total Protein 6.1 g/dL (6.3-8.2)
[2024-12-17] MEDS: POTASSIUM CHLORIDE 20 MEQ ER TABLET 40 MEQ PO (07:57)
[2024-12-17] MEDS: MAGNESIUM SULF 2 GM/WATER 50ML 2 GM/50 ML BAG IVPB (07:57)
[2024-12-17] MEDS: HYDROcodone/acetaminophen (*CRX) 5-325 MG TABLET 1 TAB PO ×2 (07:58→20:17)
[2024-12-17] MEDS: GABAPENTIN 300 MG CAPSULE PO ×3 (07:58→16:56)
[2024-12-17] MEDS: SIMVASTATIN 10 MG TABLET 20 MG PO (07:58)
--- NOTE | 2024-12-17 12:05 | P.PNIM_ITS ---
Progress Note: A&P Assessment and Plan (1) Acute on chronic kidney failure: Qualifiers: Acute renal failure type: unspecified Chronic kidney disease stage: stage 4 (GFR 15-29) Qualified Code(s): N17.9 - Acute kidney failure, unspecified; N18.4 - Chronic kidney disease, stage 4 (severe) Code(s): N17.9 - Acute kidney failure, unspecified; N18.9 - Chronic kidney disease, unspecified Status: Acute Assessment and Plan: MIGUEL ÁNGEL superimposed on CKD, stage IIIB/4 with high suspicion for etiology due to hypovolemia related to diarrhea and medications (Lasix and Spironolactone) Creatinine 2.87, BUN 75, GFR 16 upon admission. Baseline Cr highly variable but mostly ranged between 1.1 - 1.5. - IV fluids: 2L -> 125 mL/hr. Does have history of CHF, monitor tolerance. - UA showed possible indicators of infection, follow urine culture Cr better at 1.56 which is close to her baseline - monitor I&Os - trend renal function. Stop IV fluids. (2) Diarrhea: Qualifiers: Diarrhea type: presumed infectious Qualified Code(s): R19.7 - Diarrhea, unspecified Code(s): R19.7 - Diarrhea, unspecified Status: Acute Assessment and Plan: Presumed infectious, intermittent x2 weeks, large volume CDiff negative. Stool culture pending No associated abdominal pain, will forego CT imaging at this time. If patient develops pain, consider imaging. Monitor white count. Stop colchicine (3) Recurrent UTI: Code(s): N39.0 - Urinary tract infection, site not specified Status: Acute Assessment and Plan: UA: Cloudy, 1+ protein, 3+ leuk esterase, greater than 100 WBC - UCx pending - previous micro reviewed, no previous resistances noted - started on Ceftriaxone on 12/16 (4) Insulin dependent diabetes mellitus: Status: Acute Assessment and Plan: A1c 9.0% on 10/31/24. The patient's blood glucose was reviewed on 12/17 Glucose remains well controlled. Continue AccuCheks covering with sliding scale. Hypoglycemia protocol available as needed. Lantus 48U last night with glucose this morning was 82. Decrease Lantus and mealtime novolog. (5) Hypertension: Qualifiers: Hypertension type: unspecified Qualified Code(s): I10 - Essential (primary) hypertension Code(s): I10 - Essential (primary) hypertension Status: Acute Assessment and Plan: She has chronic HTN. Upon presentation was mildly hypotensive with a BP of 95/66. Corrected with IV fluids. Holding Coreg, Lasix, and spironolactone. Resume lower dose Coreg Monitor Plan DVT Prophylaxis: SCDs Code Status: DNR Subjective Date/time seen: 12/17/24 12:05 Interval history: 84yo female with CHF, DM, HTN, and CKD here for weakness, nausea and diarrhea. No BM since midnight. No hematuria but does have dysuria. No complaints of chest pain or shortness of breath. No nausea or vomiting. She was having nausea yesterday but this has improved. No abdominal pain. Exam Narrative: AF 98.2 138/64 93 18 96%ra Gen - NARD Chest - CTA bilaterally, nml RR CV - RRR S1/S2 Abd - Soft, NT/ND, Positive BS Ext - No pedal edema Psych - Nml mood and affect Skin - Warm and dry Objective Data Vital Signs Vital Signs: Vital Signs - 24 hr 12/16/24 12:18 12/16/24 12:48 12/16/24 14:02 Temperature 97.8 F Pulse Rate 90 91 93 Respiratory Rate 20 12 20 Blood Pressure 95/66 L 120/63 133/92 H Pulse Oximetry 98 100 99 Oxygen Delivery Room Air 12/16/24 16:50 12/16/24 20:00 12/16/24 22:00 Temperature 97.7 F Pulse Rate 95 97 Respiratory Rate 15 18 Blood Pressure 129/74 134/60 Pulse Oximetry 100 100 Oxygen Delivery Room Air 12/17/24 06:00 12/17/24 08:00 Temperature 98.2 F Pulse Rate 93 Respiratory Rate 18 Blood Pressure 138/64 Pulse Oximetry 96 Oxygen Delivery Room Air Intake/Output Intake/Output: Intake & Output 12/14/24 12/15/24 12/16/24 12/17/24 23:59 23:59 23:59 23:59 Intake Total 2050 1072.1 Output Total 150 Balance 1900 1072.1 Meds/Results Medications: Active Medications Generic Name Dose Route Start Last Admin Trade Name Freq PRN Reason Stop Dose Admin Acetaminophen 650 mg 12/16/24 15:20 Acetaminophen 325 Mg Tablet PO Q4H PRN Mild Pain (1-3) or Fever Hydrocodone Bitart/Acetaminophen 1 tab 12/16/24 21:00 12/17/24 07:58 Hydrocodone/Acetaminophen (*Crx) 5-325 Mg Tablet PO 1 tab Q12HR KADEN Administration Allopurinol 50 mg 12/18/24 09:00 Allopurinol 50 Mg Tablet PO DAILY KADEN Clonidine HCl 0.2 mg 12/16/24 21:00 12/17/24 07:58 Clonidine Hcl 0.2 Mg Tablet PO 0.2 mg Q12HR KADEN Administration Dextrose 12.5 gm 12/16/24 15:44 Dextrose 50% 25 Gm/50 Ml Syringe IV PUSH PRN PRN Hypoglycemia Protocol Dicyclomine HCl 20 mg 12/16/24 15:43 Dicyclomine Hcl 10 Mg Capsule PO QID PRN Abdominal Cramping Diphenhydramine HCl 50 mg 12/16/24 21:00 12/16/24 22:26 Diphenhydramine Hcl Cap 25 Mg Capsule PO 50 mg HS KADEN Administration Diphenoxylate HCl/Atropine 1 tablet 12/16/24 20:40 Diphenoxylate/Atropine (*Crx) 2.5 Mg Tablet PO PRN PRN Diarrhea >6 BM per day Ergocalciferol 1,250 mcg 12/28/24 09:00 Ergocalciferol (Vitamin D2) 1,250 Mcg (50,000 Units) Capsule PO [id number] KADEN Gabapentin 300 mg 12/16/24 21:10 12/17/24 07:58 Gabapentin 300 Mg Capsule PO 300 mg TID KADEN Administration Glucagon 1 mg 12/16/24 15:44 Glucagon For Inj 1 Mg Vial IM PRN PRN Hypoglycemia Protocol Glucose 15 gm 12/16/24 15:44 Glucose Oral Gel 15 Gm Of Glucse In 37.5 Gm Tube PO PRN PRN Hypoglycemia Protocol Lactated Ringer's 1,000 mls @ 125 mls/hr 12/16/24 15:20 12/17/24 03:41 Lr - Lactated Ringers Iv IV CONT 125 mls/hr .Q8H KADEN Administration Ceftriaxone Sodium 1 gm/ 50 mls @ 100 mls/hr 12/17/24 18:00 Sodium Chloride IVPB Q24H KADEN Dextrose 1,000 mls @ 100 mls/hr 12/16/24 15:44 Dextrose 5% 1,000 Ml IVPB PRN PRN Hypoglycemia Protocol Insulin Aspart 2 - 5 units 12/16/24 17:00 12/17/24 08:05 Insulin Aspart (*Bkc) 100 Units/Ml SUB-Q Not Given TIDWM [facility] Protocol Insulin Aspart 1 - 2 units 12/16/24 21:00 12/16/24 22:28 Insulin Aspart (*Bkc) 100 Units/Ml SUB-Q 1 units HS KADEN Administration Protocol Insulin Aspart 18 units 12/17/24 08:00 12/17/24 09:15 Insulin Aspart (*Bkc) 100 Units/Ml SUB-Q Not Given TIDWM [facility] Insulin Glargine 48 units 12/16/24 21:00 12/16/24 22:28 Insulin Glargine (*Bkc) 100 Units/Ml SUB-Q 48 units HS KADEN Administration Melatonin 10 mg 12/16/24 20:54 Melatonin 5 Mg Tablet PO HS PRN sleep Ondansetron HCl 4 mg 12/16/24 15:20 Ondansetron Inj 4 Mg/2 Ml Vial IV PUSH Q4H PRN Nausea Pantoprazole Sodium 40 mg 12/17/24 21:00 Pantoprazole 40 Mg Tablet PO HS KADEN Ropinirole HCl 0.25 mg 12/16/24 21:00 12/16/24 22:26 Ropinirole Hcl 0.25 Mg Tablet PO 0.25 mg HS KADEN Administration Sertraline HCl 100 mg 12/16/24 21:00 12/16/24 22:26 Sertraline Hcl 50 Mg Tablet PO 100 mg HS KADEN Administration Simvastatin 20 mg 12/17/24 09:00 12/17/24 07:58 Simvastatin 10 Mg Tablet PO 20 mg DAILY KADEN Administration Terazosin HCl 2 mg 12/16/24 21:00 12/16/24 22:27 Terazosin Hcl 1 Mg Capsule PO 2 mg HS KADEN Administration Radiology Results: ITS Impressions Head CT 12/16/24 13:13 Impression: No acute intracranial hemorrhage or suspicious mass effect. Chest X-Ray 12/16/24 13:28 IMPRESSION: No focal infiltrate or effusion. Labs Labs: Laboratory Results - last 24 hr 12/16/24 12/16/24 12/16/24 12:47 12:48 13:33 WBC 9.3 RBC 4.30 Hgb 12.1 Hct 36.3 L MCV 84.4 MCH 28.1 MCHC 33.3 RDW 15.9 H Plt Count 232 MPV 10.3 Immature Gran % (Auto) 0.8 H Neut % (Auto) 66.8 Lymph % (Auto) 22.2 Snyder % (Auto) 8.5 Eos % (Auto) 1.3 Baso % (Auto) 0.4 Lymph # (Auto) 2.06 Snyder # (Auto) 0.8 H Eos # (Auto) 0.1 Baso # (Auto) 0.0 Abs Immat Gran (auto) 0.07 H Absolute Neuts (auto) 6.2 Absolute Nucleated RBC 0.000 Nucleated RBC % 0.0 VBG pH VBG pCO2 VBG pO2 VBG HCO3 O2 Delivery Device O2 Liters/Min FiO2 Sodium 133 L Potassium 3.7 Chloride 99 Carbon Dioxide 19 L Anion Gap 15 H BUN 75 H D Creatinine 2.87 H Estim Creat Clear Calc 12 Estimated GFR 16 L Glucose 186 H POC Capillary Glucose Calcium 9.2 Magnesium Total Bilirubin 0.4 AST 44 H ALT 35 Alkaline Phosphatase 97 Troponin I < 0.012 Total Protein 7.8 Albumin 4.3 Beta-Hydroxybutyrate/Acetoacetate 0.11 Urine Color Yellow Urine Appearance Cloudy H Urine pH 5.5 Ur Specific Leota 1.014 Urine Protein 1+ H Urine Glucose (UA) Negative Urine Ketones Negative Ur Blood (Man) Trace Urine Nitrate Negative Urine Bilirubin Negative Urine Urobilinogen 0.2 Add Ur Microanalysis Reviewed Leukocyte Esterase Rfl 3+ H Urine RBC 0-2 Urine WBC >100 H Ur Squamous Epith Cells None seen Urine Bacteria None seen Urine Casts 3-5 C. difficile (PCR) 12/16/24 12/16/24 12/16/24 14:13 16:31 21:07 WBC RBC Hgb Hct MCV MCH MCHC RDW Plt Count MPV Immature Gran % (Auto) Neut % (Auto) Lymph % (Auto) Snyder % (Auto) Eos % (Auto) Baso % (Auto) Lymph # (Auto) Snyder # (Auto) Eos # (Auto) Baso # (Auto) Abs Immat Gran (auto) Absolute Neuts (auto) Absolute Nucleated RBC Nucleated RBC % VBG pH 7.394 VBG pCO2 28.7 L* VBG pO2 135.7 H VBG HCO3 17.1 L O2 Delivery Device Room air O2 Liters/Min 0.0 FiO2 21 Sodium Potassium Chloride Carbon Dioxide Anion Gap BUN Creatinine Estim Creat Clear Calc Estimated GFR Glucose POC Capillary Glucose 258 H Calcium Magnesium Total Bilirubin AST ALT Alkaline Phosphatase Troponin I Total Protein Albumin Beta-Hydroxybutyrate/Acetoacetate Urine Color Urine Appearance Urine pH Ur Specific Le[place] Urine Protein Urine Glucose (UA) Urine Ketones Ur Blood (Man) Urine Nitrate Urine Bilirubin Urine Urobilinogen Add Ur Microanalysis Leukocyte Esterase Rfl Urine RBC Urine WBC Ur Squamous Epith Cells Urine Bacteria Urine Casts C. difficile (PCR) Negative 12/17/24 12/17/24 12/17/24 05:59 07:35 11:40 WBC 5.4 RBC 3.43 L Hgb 9.5 L Hct 29.2 L MCV 85.1 MCH 27.7 MCHC 32.5 RDW 15.8 H Plt Count 190 MPV 10.0 Immature Gran % (Auto) 0.7 H Neut % (Auto) 61.4 Lymph % (Auto) 23.1 Snyder % (Auto) 11.4 H Eos % (Auto) 3.0 Baso % (Auto) 0.4 Lymph # (Auto) 1.24 Snyder # (Auto) 0.6 Eos # (Auto) 0.2 Baso # (Auto) 0.0 Abs Immat Gran (auto) 0.04 H Absolute Neuts (auto) 3.3 Absolute Nucleated RBC 0.000 Nucleated RBC % 0.0 VBG pH VBG pCO2 VBG pO2 VBG HCO3 O2 Delivery Device O2 Liters/Min FiO2 Sodium 138 Potassium 3.1 L Chloride 108 H Carbon Dioxide 22 Anion Gap 8 BUN 55 H D Creatinine 1.56 H Estim Creat Clear Calc 21 Estimated GFR 32 L Glucose 111 H POC Capillary Glucose 82 126 H Calcium 8.8 Magnesium 1.6 Total Bilirubin 0.3 AST 31 ALT 25 Alkaline Phosphatase 90 Troponin I Total Protein 6.1 L Albumin 3.3 L Beta-Hydroxybutyrate/Acetoacetate Urine Color Urine Appearance Urine pH Ur Specific [place] Urine Protein Urine Glucose (UA) Urine Ketones Ur Blood (Man) Urine Nitrate Urine Bilirubin Urine Urobilinogen Add Ur Microanalysis Leukocyte Esterase Rfl Urine RBC Urine WBC Ur Squamous Epith Cells Urine Bacteria Urine Casts C. difficile (PCR)
[2024-12-17 14:00] VITALS: BP 140/62; PULSE 102; RESP 18; TEMP 36.6; O2SAT 97
[2024-12-17] MEDS: INSULIN ASPART (*BKC) 100 UNITS/ML SUB-Q ×2 (16:56→20:57)
[2024-12-17] MEDS: cefTRIAXone 1 GM in SODIUM CHLORIDE 0.9% IV 50 ML 100 ML IVPB (16:56)
[2024-12-17 20:16] VITALS: PULSE 105
[2024-12-17] MEDS: PANTOPRAZOLE 40 MG TABLET PO (20:17)
[2024-12-17] MEDS: SERTRALINE HCL 50 MG TABLET 100 MG PO (20:17)
[2024-12-17] MEDS: TERAZOSIN HCL 1 MG CAPSULE 2 MG PO (20:18)
[2024-12-17] MEDS: INSULIN GLARGINE (*BKC) 100 UNITS/ML 40 UNITS SUB-Q (20:58)
[2024-12-17 22:00] VITALS: BP 126/63; PULSE 97; RESP 20; TEMP 36.8; O2SAT 97
[2024-12-18 06:00] VITALS: BP 154/75; PULSE 91; RESP 20; TEMP 37.4; O2SAT 98
[2024-12-18 06:04] LABS: Hematocrit 29.0 % (37.0-47.0); Hemoglobin 9.2 g/dL (12.0-15.0); Mean Corpuscular HGB Conc 31.7 g/dl (32-36); Mean Corpuscular Hemoglobin 28.0 pg (26-34); Mean Corpuscular Volume 88.1 fl (80-100); Platelet Count Result 197 k/mm3 (150-375); Red Blood Count 3.29 M/mm3 (4.2-5.4); White Blood Count 5.6 K/mm3 (4.5-10.0)
[2024-12-18 06:27] LABS: Anion Gap 7 mmol/L (4-12); Blood Urea Nitrogen 33 mg/dL (7-17); Calcium 8.8 mg/dL (8.4-10.2); Carbon Dioxide 22 mmol/L (22-30); Chloride 107 mmol/L (98-107); Estimated CRCL calculation 33 ml/min; Estimated Glomerular Filt Rate 53; Glucose 125 mg/dL (65-110); Potassium 3.9 mmol/L (3.4-5.0); Sodium 136 mmol/L (137-145)
[2024-12-18] MEDS: HYDROcodone/acetaminophen (*CRX) 5-325 MG TABLET 1 TAB PO ×2 (07:53→21:22)
[2024-12-18] MEDS: allopurinoL 50 MG TABLET PO (07:53)
[2024-12-18] MEDS: GABAPENTIN 300 MG CAPSULE PO ×3 (07:53→17:23)
[2024-12-18] MEDS: SIMVASTATIN 10 MG TABLET 20 MG PO (07:53)
[2024-12-18] MEDS: INSULIN ASPART (*BKC) 100 UNITS/ML SUB-Q (12:16)
[2024-12-18] MEDS: INSULIN ASPART (*BKC) 100 UNITS/ML 12 UNITS SUB-Q ×2 (12:16→17:23)
--- NOTE | 2024-12-18 13:55 | P.PNIM_ITS ---
Progress Note: A&P Assessment and Plan (1) Acute on chronic kidney failure: Qualifiers: Acute renal failure type: unspecified Chronic kidney disease stage: stage 4 (GFR 15-29) Qualified Code(s): N17.9 - Acute kidney failure, unspecified; N18.4 - Chronic kidney disease, stage 4 (severe) Code(s): N17.9 - Acute kidney failure, unspecified; N18.9 - Chronic kidney disease, unspecified Status: Acute Assessment and Plan: MIGUEL ÁNGEL superimposed on CKD, stage IIIB/4 with high suspicion for etiology due to hypovolemia related to diarrhea and medications (Lasix and Spironolactone) Creatinine 2.87, BUN 75, GFR 16 upon admission. Baseline Cr highly variable but mostly ranged between 1.1 - 1.5. IV fluids: 2L -> 125 mL/hr. Fluids stopped yesterday. UA showed possible indicators of infection, follow urine culture Cr better at 1.0 which is at her baseline Monitor I&Os, renal function and electrolytes. (2) Diarrhea: Qualifiers: Diarrhea type: presumed infectious Qualified Code(s): R19.7 - Diarrhea, unspecified Code(s): R19.7 - Diarrhea, unspecified Status: Acute Assessment and Plan: Presumed infectious, intermittent x2 weeks, large volume CDiff negative. Stool culture pending No associated abdominal pain, will forego CT imaging at this time. If patient develops pain, consider imaging. Diarrhea resolved. WBC remains normal. Follow (3) Recurrent UTI: Code(s): N39.0 - Urinary tract infection, site not specified Status: Acute Assessment and Plan: UA: Cloudy, 1+ protein, 3+ leuk esterase, greater than 100 WBC UCx pending Previous micro reviewed, no previous resistances noted Started on Ceftriaxone on 12/16. Follow up on UCx result (4) Insulin dependent diabetes mellitus: Status: Acute Assessment and Plan: A1c 9.0% on 10/31/24. The patient's blood glucose was reviewed on 12/18 Glucose more elevated at times. Continue AccuCheks covering with sliding scale. Hypoglycemia protocol available as needed. Lantus 40U last night with glucose this morning was 106 Added back meal time novolog at lower dose. Monitor (5) Hypertension: Qualifiers: Hypertension type: unspecified Qualified Code(s): I10 - Essential (primary) hypertension Code(s): I10 - Essential (primary) hypertension Status: Acute Assessment and Plan: She has chronic HTN. Upon presentation was mildly hypotensive with a BP of 95/66. Corrected with IV fluids. Coreg, Lasix, and spironolactone were held. Resumed lower dose Coreg and she tolerated this well. Advance Coreg again. Monitor Plan DVT Prophylaxis: SCDs Code Status: DNR Subjective Date/time seen: 12/18/24 13:55 Interval history: 84yo female with CHF, DM, HTN, and CKD here for weakness, nausea and diarrhea. Diarrhea has resolved. Eating well. No n/v. Walking with therapy. She is requesting discharge but [facility] can not take her back today. Exam Narrative: AF 99.3 154/75 91 20 98%ra Gen - NARD Chest - CTA bilaterally, nml RR CV - RRR S1/S2 Abd - Soft, NT/ND, Positive BS Ext - No pedal edema Psych - Nml mood and affect Skin - Warm and dry Objective Data Vital Signs Vital Signs: Vital Signs - 24 hr 12/17/24 14:00 12/17/24 20:00 12/17/24 20:16 Temperature 97.9 F Pulse Rate 102 H 105 H Respiratory Rate 18 Blood Pressure 140/62 Pulse Oximetry 97 Oxygen Delivery Room Air 12/17/24 22:00 12/18/24 06:00 12/18/24 08:00 Temperature 98.3 F 99.3 F Pulse Rate 97 91 Respiratory Rate 20 20 Blood Pressure 126/63 154/75 H Pulse Oximetry 97 98 Oxygen Delivery Room Air 12/18/24 09:21 12/18/24 10:28 Temperature Pulse Rate Respiratory Rate Blood Pressure Pulse Oximetry Oxygen Delivery Room Air Room Air Intake/Output Intake/Output: Intake & Output 12/15/24 12/16/24 12/17/24 12/18/24 23:59 23:59 23:59 23:59 Intake Total 0 2962.1 760 Output Total 150 Balance 1900 2962.1 760 Meds/Results Medications: Active Medications Generic Name Dose Route Start Last Admin Trade Name Freq PRN Reason Stop Dose Admin Acetaminophen 650 mg 12/16/24 15:20 Acetaminophen 325 Mg Tablet PO Q4H PRN Mild Pain (1-3) or Fever Hydrocodone Bitart/Acetaminophen 1 tab 12/16/24 21:00 12/18/24 07:53 Hydrocodone/Acetaminophen (*Crx) 5-325 Mg Tablet PO 1 tab Q12HR KADEN Administration Allopurinol 50 mg 12/18/24 09:00 12/18/24 07:53 Allopurinol 50 Mg Tablet PO 50 mg DAILY KADEN Administration Carvedilol 12.5 mg 12/17/24 21:00 12/18/24 07:53 Carvedilol 12.5 Mg Tablet PO 12.5 mg Q12HR KADEN Administration Clonidine HCl 0.2 mg 12/16/24 21:00 12/18/24 07:53 Clonidine Hcl 0.2 Mg Tablet PO 0.2 mg Q12HR KADEN Administration Dextrose 12.5 gm 12/16/24 15:44 Dextrose 50% 25 Gm/50 Ml Syringe IV PUSH PRN PRN Hypoglycemia Protocol Dicyclomine HCl 20 mg 12/16/24 15:43 Dicyclomine Hcl 10 Mg Capsule PO QID PRN Abdominal Cramping Diphenhydramine HCl 50 mg 12/17/24 18:52 Diphenhydramine Hcl Cap 25 Mg Capsule PO HS PRN Insomnia Diphenoxylate HCl/Atropine 1 tablet 12/16/24 20:40 Diphenoxylate/Atropine (*Crx) 2.5 Mg Tablet PO PRN PRN Diarrhea >6 BM per day Ergocalciferol 1,250 mcg 12/28/24 09:00 Ergocalciferol (Vitamin D2) 1,250 Mcg (50,000 Units) Capsule PO [id number] KADEN Gabapentin 300 mg 12/16/24 21:10 12/18/24 12:16 Gabapentin 300 Mg Capsule PO 300 mg TID KADEN Administration Glucagon 1 mg 12/16/24 15:44 Glucagon For Inj 1 Mg Vial IM PRN PRN Hypoglycemia Protocol Glucose 15 gm 12/16/24 15:44 Glucose Oral Gel 15 Gm Of Glucse In 37.5 Gm Tube PO PRN PRN Hypoglycemia Protocol Ceftriaxone Sodium 1 gm/ 50 mls @ 100 mls/hr 12/17/24 18:00 12/17/24 17:25 Sodium Chloride IVPB Infused Q24H KADEN Infusion Dextrose 1,000 mls @ 100 mls/hr 12/16/24 15:44 Dextrose 5% 1,000 Ml IVPB PRN PRN Hypoglycemia Protocol Insulin Aspart 2 - 5 units 12/16/24 17:00 12/18/24 12:16 Insulin Aspart (*Bkc) 100 Units/Ml SUB-Q 2 units TIDWM KADEN Administration Protocol Insulin Aspart 1 - 2 units 12/16/24 21:00 12/17/24 20:57 Insulin Aspart (*Bkc) 100 Units/Ml SUB-Q 1 units HS KADEN Administration Protocol Insulin Aspart 12 units 12/18/24 08:00 12/18/24 12:16 Insulin Aspart (*Bkc) 100 Units/Ml SUB-Q 12 units TIDWM KADEN Administration Insulin Glargine 40 units 12/17/24 21:00 12/17/24 20:58 Insulin Glargine (*Bkc) 100 Units/Ml SUB-Q 40 units HS KADEN Administration Melatonin 10 mg 12/16/24 20:54 Melatonin 5 Mg Tablet PO HS PRN sleep Ondansetron HCl 4 mg 12/16/24 15:20 Ondansetron Inj 4 Mg/2 Ml Vial IV PUSH Q4H PRN Nausea Pantoprazole Sodium 40 mg 12/17/24 21:00 12/17/24 20:17 Pantoprazole 40 Mg Tablet PO 40 mg HS KADEN Administration Ropinirole HCl 0.25 mg 12/16/24 21:00 12/17/24 20:17 Ropinirole Hcl 0.25 Mg Tablet PO 0.25 mg HS KADEN Administration Sertraline HCl 100 mg 12/16/24 21:00 12/17/24 20:17 Sertraline Hcl 50 Mg Tablet PO 100 mg HS KADEN Administration Simvastatin 20 mg 12/17/24 09:00 12/18/24 07:53 Simvastatin 10 Mg Tablet PO 20 mg DAILY KADEN Administration Terazosin HCl 2 mg 12/16/24 21:00 12/17/24 20:18 Terazosin Hcl 1 Mg Capsule PO 2 mg HS KADEN Administration Radiology Results: ITS Impressions Head CT 12/16/24 13:13 Impression: No acute intracranial hemorrhage or suspicious mass effect. Chest X-Ray 12/16/24 13:28 IMPRESSION: No focal infiltrate or effusion. Labs Labs: Laboratory Results - last 24 hr 12/17/24 12/17/24 12/18/24 16:37 20:43 05:51 WBC 5.6 RBC 3.29 L Hgb 9.2 L Hct 29.0 L MCV 88.1 MCH 28.0 MCHC 31.7 L RDW 15.9 H Plt Count 197 MPV 10.1 Sodium 136 L Potassium 3.9 Chloride 107 Carbon Dioxide 22 Anion Gap 7 BUN 33 H D Creatinine 1.00 Estim Creat Clear Calc 33 Estimated GFR 53 L Glucose 125 H POC Capillary Glucose 257 H 216 H Calcium 8.8 12/18/24 12/18/24 07:19 11:29 WBC RBC Hgb Hct MCV MCH MCHC RDW Plt Count MPV Sodium Potassium Chloride Carbon Dioxide Anion Gap BUN Creatinine Estim Creat Clear Calc Estimated GFR Glucose POC Capillary Glucose 106 H 226 H Calcium
[2024-12-18 14:00] VITALS: BP 150/80; PULSE 91; RESP 16; TEMP 36.5; O2SAT 98
[2024-12-18] MEDS: cefTRIAXone 1 GM in SODIUM CHLORIDE 0.9% IV 50 ML 100 ML IVPB (17:23)
[2024-12-18] MEDS: SERTRALINE HCL 50 MG TABLET 100 MG PO (21:23)
[2024-12-18] MEDS: INSULIN GLARGINE (*BKC) 100 UNITS/ML 40 UNITS SUB-Q (21:23)
[2024-12-18] MEDS: PANTOPRAZOLE 40 MG TABLET PO (21:23)
[2024-12-18] MEDS: TERAZOSIN HCL 1 MG CAPSULE 2 MG PO (21:23)
[2024-12-18 22:00] VITALS: BP 173/89; PULSE 95; RESP 20; TEMP 36.8; O2SAT 98
[2024-12-19 06:00] VITALS: BP 151/72; PULSE 88; RESP 20; TEMP 36.7; O2SAT 97
[2024-12-19 06:19] LABS: Hematocrit 30.1 % (37.0-47.0); Hemoglobin 9.6 g/dL (12.0-15.0); Mean Corpuscular HGB Conc 31.9 g/dl (32-36); Mean Corpuscular Hemoglobin 27.9 pg (26-34); Mean Corpuscular Volume 87.5 fl (80-100); Platelet Count Result 209 k/mm3 (150-375); Red Blood Count 3.44 M/mm3 (4.2-5.4); White Blood Count 6.1 K/mm3 (4.5-10.0)
[2024-12-19 06:43] LABS: Anion Gap 4 mmol/L (4-12); Blood Urea Nitrogen 20 mg/dL (7-17); Calcium 8.8 mg/dL (8.4-10.2); Carbon Dioxide 26 mmol/L (22-30); Chloride 106 mmol/L (98-107); Estimated CRCL calculation 36 ml/min; Estimated Glomerular Filt Rate 60; Glucose 95 mg/dL (65-110); Potassium 3.9 mmol/L (3.4-5.0); Sodium 136 mmol/L (137-145)
[2024-12-19] MEDS: GABAPENTIN 300 MG CAPSULE PO ×2 (07:33→12:59)
[2024-12-19] MEDS: HYDROcodone/acetaminophen (*CRX) 5-325 MG TABLET 1 TAB PO (07:33)
[2024-12-19] MEDS: SIMVASTATIN 10 MG TABLET 20 MG PO (07:33)
[2024-12-19] MEDS: allopurinoL 50 MG TABLET PO (07:33)
[2024-12-19] MEDS: INSULIN ASPART (*BKC) 100 UNITS/ML 12 UNITS SUB-Q ×2 (08:35→12:59)
--- NOTE | 2024-12-19 13:09 | P.DS_ITS ---
DS: Admitting Diagnosis Discharge Date 12/19/24 Admitting Diagnosis Weakness, nausea and diarrhea DS: Discharge Diagnosis Discharge Diagnosis (1) Acute on chronic kidney failure: Qualifiers: Acute renal failure type: unspecified Chronic kidney disease stage: stage 4 (GFR 15-29) Qualified Code(s): N17.9 - Acute kidney failure, unspecified; N18.4 - Chronic kidney disease, stage 4 (severe) Code(s): N17.9 - Acute kidney failure, unspecified; N18.9 - Chronic kidney disease, unspecified Status: Acute (2) Diarrhea: Qualifiers: Diarrhea type: presumed infectious Qualified Code(s): R19.7 - Diarrhea, unspecified Code(s): R19.7 - Diarrhea, unspecified Status: Acute (3) Recurrent UTI: Code(s): N39.0 - Urinary tract infection, site not specified Status: Acute (4) Insulin dependent diabetes mellitus: Status: Acute (5) Hypertension: Qualifiers: Hypertension type: unspecified Qualified Code(s): I10 - Essential (primary) hypertension Code(s): I10 - Essential (primary) hypertension Status: Acute DS: Summary Hospital Course Reason for hospitalization: 84yo female with CHF, DM, HTN, and CKD here for weakness, nausea and diarrhea. Please see H&P for details. Hospital Course: Patient presents with weakness, nausea and diarrhea. Found to have MIGUEL ÁNGEL superimposed on CKD, stage IIIB/4 with high suspicion for etiology due to hypovolemia related to diarrhea and medications (Lasix and Spironolactone). Creatinine 2.87, BUN 75, GFR 16 upon admission. Baseline Cr highly variable but mostly ranged between 1.1 - 1.5. Started on IV fluids. UA showed possible indicators of infection. Cr better at 0.9 which is at her baseline. Diarrhea was presumed infectious, intermittent x2 weeks, large volume but CDiff negative and no further BMs since admission. Stool culture pending. No associated abdominal pain so we held off on abdominal imaging. WBC remained normal. UCx pending. Previous micro reviewed, no previous resistances noted. Started on Ceftriaxone and received 3 doses. A1c 9.0% on 10/31/24. The patient's blood glucose was monitored with AccuCheks covering with sliding scale. Hypoglycemia protocol was available as needed. Lantus and Novolog added at lower doses. She will need to monitor this and advance her insulin regiment as her glucose allows. She voices understanding of this. She has chronic HTN. Upon presentation was mildly hy potensive with a BP of 95/66. Corrected with IV fluids. Coreg, Lasix, and spironolactone were held. Resumed lower dose Coreg and dose was advanced. Able to resume spironolactone at discharge. Add back Lasix if needed. She worked with PT/OT and was doing well ambulating. Discharge instructions discussed in details. All questions answered. She overall did well and was able to be discharged home on 12/19/24. Status at Discharge Cognitive/behavioral status at discharge: stable Time Spent with Patient Time attestation: Total time spent providing and/or coordinating discharge services: 35 minutes Time spent: Greater than 30 minutes Exam Narrative: AF 98.0 151/72 88 20 97%ra Gen - NARD Chest - CTA bilaterally, nml RR CV - RRR S1/S2 Abd - Soft, NT/ND, Positive BS Ext - No pedal edema Psych - Nml mood and affect Skin - Warm and dry DS: Data Data Completed and Pending Labs on day of discharge: Labs from last 24 hours 12/19/24 12/19/24 12/19/24 11:19 07:13 05:40 WBC 6.1 RBC 3.44 L Hgb 9.6 L Hct 30.1 L MCV 87.5 MCH 27.9 MCHC 31.9 L RDW 15.8 H Plt Count 209 MPV 10.0 Sodium 136 L Potassium 3.9 Chloride 106 Carbon Dioxide 26 Anion Gap 4 BUN 20 H D Creatinine 0.90 Estim Creat Clear Calc 36 Estimated GFR 60 Glucose 95 POC Capillary Glucose 98 82 Calcium 8.8 12/18/24 12/18/24 20:58 16:57 WBC RBC Hgb Hct MCV MCH MCHC RDW Plt Count MPV Sodium Potassium Chloride Carbon Dioxide Anion Gap BUN Creatinine Estim Creat Clear Calc Estimated GFR Glucose POC Capillary Glucose 132 H 137 H Calcium Discharge Plan Discharge Attending physician on discharge: Bean Brenner Discharging Clinician: Bean Brenner Anticipated Discharge Date/Time: 12/19/24 13:21 Patient Disposition: NH Long-Term/Asst Living Activity: as tolerated Diet: diabetic Discharge Instructions: Please check glucose before meals and before bed. Record and bring into your doctor for review. Call your doctor if glucose is greater that 180. Check blood pressure 1 to 2 times a day. Record and bring into your doctor for review. Call your doctor if your blood pressure is greater than 180/110. Please complete your antibiotic course even if you are starting to feel well. Take precautions to avoid falls. Rise slowly from a lying or sitting position. Pause before standing or walking. Check daily morning weights after voiding. Call your doctor if you gain more than 3 lb in 2 days or 5 lb in 1 week. Contact your doctor or call 911 and come to the Emergency Room if you have fever, lightheadedness with standing or other worrisome symptoms. Avoid NSAIDs (ibuprofen, naproxen, Aleve). Tylenol is safe to take. Follow-up with your primary care provider in 1-2 weeks. Please call for appointment. Thank you for using [facility] for your health care needs. Patient Instructions: Antibiotic Form Patient Language: Indonesian Stand Alone Forms: General Discharge Information Follow-up/Referrals: Toby,Lisset Segundo, [employer] [Primary Care Provider] - Call for Appointment Discharge Medications: New cefpodoxime 100 mg tablet 100 mg PO BID Qty: 8 0RF Rx Instructions: must administer with a meal/food Continued simvastatin 10 mg tablet 20 mg PO DAILY spironolactone 25 mg tablet 25 mg PO DAILY clonidine HCl 0.2 mg tablet 0.2 mg PO Q12H sertraline 50 mg tablet 100 mg PO HS Ozempic 1 mg/dose (4 mg/3 mL) pen injector 2 mg SUBCUT WEEKLY Patient Comments: administer on Thursday carvedilol [Coreg] 25 mg tablet 50 mg PO .Q12HR Rx Instructions: must administer with a meal/food ferrous sulfate 325 mg (65 mg iron) tablet 325 mg PO DAILY hydrocodone-acetaminophen 5-325 mg tablet 1 tablet PO Q12H melatonin 10 mg capsule 10 mg PO HS PRN (Reason: sleep) terazosin 2 mg capsule 2 mg PO HS cholecalciferol (vitamin D3) 1,250 mcg (50,000 unit) capsule 1,250 mcg PO .biweekly allopurinol 100 mg tablet 50 mg PO DAILY gabapentin 300 mg capsule 300 mg PO TID ropinirole 0.25 mg tablet 0.25 mg PO HS Changed diphenhydramine HCl [Banophen] 25 mg capsule 50 mg PO HS PRN (Reason: Insomnia) Qty: 1 0RF insulin degludec [Tresiba FlexTouch U-200] 200 unit/mL (3 mL) insulin pen 36 unit SUBCUT HS Qty: 1 0RF Humalog U-100 Insulin 100 unit/mL cartridge 8 unit subcut TIDWM Qty: 15 0RF Held furosemide 40 mg tablet 40 mg PO BID Hold Instructions: HOLD - Resume when okay with your doctor omeprazole 20 mg capsule,delayed release(DR/EC) 20 mg PO HS Hold Instructions: HOLD - resume after completing your antibiotic Discontinued colchicine 0.6 mg tablet 0.6 mg PO DAILY Date of admission: 12/16/24 15:20 Primary Care Provider: Toby,Lisset Segundo Admitting Provider: Danilo Murillo Attending physician on admission: Danilo Murillo Condition: Stable Hospitalist MIPS Heart Failure (Exclusion) Patient has history of Heart Transplant or Left Ventricular Assistive Device?: No IF YES, STOP HERE Heart Failure (Qualifier) Patient has current or prior documentation of LVEF less than or equal to 40%, or mod/servere depressed LVSF?: No IF NO, STOP HERE
[2024-12-19 14:00] VITALS: BP 172/79; PULSE 96; RESP 16; TEMP 36.8; O2SAT 96
--- NOTE | 2024-12-21 08:57 | PC.NURSE ---
Stool cx is negative. Dr. Jordin banks.
--- NOTE | 2024-12-22 09:43 | PC.NURSE ---
Faxed urine cx results to [facility]- Lisset Luis NP per Dr. Jordin miguel.
== END 2024-12-19 14:25 | DRG 683 ==
LOC: ANHED 12:33 → ANH3MEDSUR 16:22
PROVIDERS: Emergency Medicine; Student in an Organized Health Care Education/Training Program; Admitting Provider Hospitalist; Emergency Provider Student in an Organized Health Care Education/Training Program; PCP Nurse Practitioner Family; Visit Provider Internal Medicine
DX: N17.9 Acute kidney failure, unspecified (principal); I13.0 Hypertensive heart and chronic kidney disease with heart failure and stage 1 through stage 4 chronic kidney disease, or unspecified chronic kidney disease; N39.0 Urinary tract infection, site not specified; N18.32 Chronic kidney disease, stage 3b; I50.9 Heart failure, unspecified; E11.22 Type 2 diabetes mellitus with diabetic chronic kidney disease; E86.1 Hypovolemia; E78.5 Hyperlipidemia, unspecified; D64.9 Anemia, unspecified; K21.9 Gastro-esophageal reflux disease without esophagitis; M19.90 Unspecified osteoarthritis, unspecified site; M10.9 Gout, unspecified; M54.9 Dorsalgia, unspecified; G89.29 Other chronic pain; R19.7 Diarrhea, unspecified; I69.392 Facial weakness following cerebral infarction; Z96.82 Presence of neurostimulator; Z79.4 Long term (current) use of insulin
CPT/HCPCS: 36415; 70450; 71046; 80048; 80053; 81001; 82010; 82803; 82948; 83735; 84484; 85025; 85027; 87045; 87046; 87086; 87427; 87493; 93005; 96361; 96365; 96375; 97161; 97165; 99285; A9270; J0696; J1815; J3475; J7120

== ENCOUNTER 2025-01-20 17:47 | Inpatient (IN) | payer MEDICARE, BC, SELFPAY ==
[2025-01-20] VITALS (13 sets, daily range): BP systolic 165–189; BP diastolic 71–90; PULSE 88–97; RESP 12–20; TEMP 36.6–37.2; O2SAT 94–100; BMI 29.0
--- NOTE | ~2025-01-20 | XR_ITS ---
XR hip RT 2V w AP pelvis 01/20/2025 20:30 Indication: Status post fall. Hip pain. Procedure: AP view of the pelvis and 2 views right hip Comparison: CT pelvis dated 01/20/2025 Findings: There is a subtle right femoral subcapital fracture with slight valgus angulation. Pelvic rings intact. Sacral foramen are symmetric. Impression: 1: Right femoral subcapital fracture. Reviewed, dictated and finalized at location O. Impression: 1: Right femoral subcapital fracture.
--- NOTE | ~2025-01-20 | XR_ITS ---
EXAMINATION: XR chest 1V 01/20/2025 20:30 INDICATION: Hip fracture PROCEDURE: AP view of the chest COMPARISON: 12/16/2024 FINDINGS: The lungs are clear. Mild cardiomegaly. Spinal stimulator leads overlying the thoracic spine. There are no pleural effusions. There is no pneumothorax suspected. IMPRESSION: 1: NO ACUTE CARDIOPULMONARY DISEASE. Reviewed, dictated and finalized at location O.
--- NOTE | ~2025-01-20 | CT_ITS ---
EXAMINATION: CT pelvis wo con DATE: 01/20/2025 19:34 INDICATION: Status post fall. Hip pain. TECHNIQUE: Computed tomography (CT) of the pelvis was performed without intravenous contrast. The dose-length product was 405.42 mGy-cm. COMPARISON: None FINDINGS: There is a minimally displaced right femoral subcapital fracture. The femurs are normal. No pelvic fracture. Severe lower lumbar spondylosis. There is an umbilical hernia containing nonobstructed bowel. IMPRESSION: 1. Minimally displaced right femoral subcapital fracture. Reviewed, dictated and finalized at location O.
--- NOTE | ~2025-01-20 | XR_ITS ---
EXAMINATION: XR surgery orthopedic DATE: 01/22/2025 09:08 INDICATION: Right hip pinning TECHNIQUE: 2 fluoroscopic images of the right hip were obtained during procedure performed by Dr. Navarro. Radiologist was not present for the imaging or procedure. The amount of fluoroscopy time used during this procedure was 0.5 minutes. Total DAP was 3.13 Gycm^2. COMPARISON: 01/20/2025 FINDINGS: Internal fixation with 3 lag screws of a subcapital fracture of the proximal right femur. No interval change in 3 mm posterior displacement and posterior superolateral impaction. No new fractures identified. IMPRESSION: 1. Lag screw fixation of subcapital fracture of the proximal right femur which remains in near anatomic alignment. Reviewed, dictated and finalized at location A.
--- NOTE | ~2025-01-20 | CT_ITS ---
EXAMINATION: CT lumbar spine wo con DATE: 01/20/2025 19:34 INDICATION: Status post fall. Trauma. TECHNIQUE: Computed tomography (CT) of the lumbar spine was performed without intravenous contrast. The dose-length product was 1047.59 mGy-cm. Automated exposure control and iterative reconstruction technique were employed. COMPARISON: None FINDINGS: There are surgical changes involving the posterior processes of L4-5. There is disc narrowing at L3-4, L4-5 and L5-S1. There is degenerative anterolisthesis at L3-4 and L4-5. No acute fracture, subluxation or dislocation. Spinal stimulator leads ascending into the thoracic spine, partially visualized. There is atherosclerosis. There is levoscoliosis of the lower lumbar spine. There is moderate-severe multilevel facet hypertrophy. No paraspinal soft tissue abnormality. IMPRESSION: 1. No acute abnormality of the cervical spine. 2: Severe lumbar spondylosis. Reviewed, dictated and finalized at location O.
--- NOTE | 2025-01-20 19:19 | ED.FALL ---
HPI - Fall General Chief Complaint: Fall Stated Complaint: fall pelvic pain Time Seen by Provider: 01/20/25 19:12 History of Present Illness HPI Narrative: Patient is an 84-year-old female who presents emergency department this evening complaining of a ground level fall which occurred at her local custodial. Patient is currently complaining of right hip pain and lower back pain. States that she does have history of chronic back pain but after the fall her back pain is worse. Patient is able to move her right lower extremity at the hip joint slightly but range of motion is limited secondary to pain. Denies hitting her head, denies loss of consciousness. There were no additional modifying, alleviating, or precipitating factors at this time. Related Data Home Medications ?Medication ?Instructions ?Recorded ?Confirmed ?Last Taken ?Type clonidine HCl 0.2 mg tablet 0.2 mg PO Q12H 05/04/23 01/17/25 Unknown History semaglutide 1 mg/dose (4 mg/3 mL) 2 mg subcut WEEKLY 05/04/23 01/17/25 12/10/24 History subcutaneous pen injector (Ozempic) sertraline 50 mg tablet 100 mg PO HS 05/04/23 01/17/25 Unknown History simvastatin 10 mg tablet 20 mg PO DAILY 05/04/23 01/17/25 Unknown History spironolactone 25 mg tablet 25 mg PO DAILY 05/04/23 01/17/25 Unknown History carvedilol 25 mg tablet (Coreg) 50 mg PO .Q12HR 10/31/24 01/17/25 Unknown History cholecalciferol (vitamin D3) 1,250 1,250 mcg PO .biweekly 10/31/24 01/17/25 12/12/24 History mcg (50,000 unit) capsule hydrocodone 5 mg-acetaminophen 325 1 tablet PO Q12H 10/31/24 01/17/25 Unknown History mg tablet melatonin 10 mg capsule 10 mg PO HS PRN sleep 10/31/24 01/17/25 Unknown History omeprazole 20 mg capsule,delayed 20 mg PO HS 10/31/24 01/17/25 Unknown History release Held on 12/19/24. Instructions: HOLD - resume after completing your antibiotic terazosin 2 mg capsule 2 mg PO HS 10/31/24 01/17/25 Unknown History allopurinol 100 mg tablet 50 mg PO DAILY 12/16/24 01/17/25 Unknown History gabapentin 300 mg capsule 300 mg PO TID 12/16/24 01/17/25 Unknown History ropinirole 0.25 mg tablet 0.25 mg PO HS 12/16/24 01/17/25 Unknown History Allergies Allergy/AdvReac Type Severity Reaction Status Date / Time codeine Allergy Mild Unknown Verified 01/20/25 18:04 Penicillins Allergy Mild Unknown Verified 01/20/25 18:04 latex Allergy Rash Verified 01/20/25 18:04 morphine Allergy Hives Verified 01/20/25 18:04 shrimp Allergy Swelling Verified 01/20/25 18:04 [facility] AdvReac Mild Unknown Verified 01/20/25 18:04 atorvastatin AdvReac Mild Unknown Verified 01/20/25 18:04 erythromycin base AdvReac Mild Unknown Verified 01/20/25 18:04 Review of Systems Review of Systems: All systems are reviewed and are negative unless stated otherwise in the HPI. [facility] Past Medical History Medical History Chronic back pain Gout Compression fracture Basal cell carcinoma of skin Anemia Osteoarthritis Gastroesophageal reflux disease Chronic kidney disease, stage 3b Hyperlipidemia Hypertension Insulin dependent diabetes mellitus Heart failure, type unknown Cerebrovascular accident residual right sided weakness Gout Surgical History Surgical History Status post insertion of spinal cord stimulator Family History Family History Daughter Cancer Mother Diabetes mellitus Sibling Diabetes mellitus Social History Social History Social History: Surrogate medical decision maker: Paige Goncalves, daughter. Code status: Full code. Smoking status: Never smoker Alcohol intake: never Substance use: former Substance use type: marijuana Other substance usage details: dtr grows marijuana, intake variety of routes Last use: 2-3 months ago Do You Feel Safe in your Home?: Yes Lack of Transportation: No Lack of Food: Never True Current Housing: I Have Housing Concerned About Future Housing: No Difficulty Paying Gas/Electric Bills: No Difficulty Paying for Meds: No Currently Unemployed: No Education: Decline to Answer Difficulty w/ Childcare or Family Care: No Living arrangements: assisted living Occupation/Education: retired Spiritual care concerns: No Exam Narrative: General: Alert, awake, afebrile, in no acute distress. HEENT: PERRL, no rhinorrhea, no post nasal drip, oropharynx clear. Neck: Trachea midline, no JVD, no lymphadenopathy. Cardiovascular: Regular rate and rhythm, no murmurs, rubs or gallops, no peripheral edema. Respiratory: Clear to auscultation bilaterally, no tachypnea, no wheezing, no rhonchi, no rubs, no respiratory distress. Abdomen: Soft, nontender, nondistended, no rebound, no guarding, no peritoneal signs. Musculoskeletal: No joint swelling or deformity, normal muscle tone, right lower extremity is held at a 45 degree angle flexion at the hip joint, patient is able to move her right lower extremity at the hip joint slightly but range of motion is limited secondary to pain. Back: No midline tenderness to palpation over the cervical, thoracic or lumbar spine, tenderness to palpation over the paraspinal lumbar region. Skin: No rashes or petechia, no signs of infection. Psychiatric: Alert and oriented, normal behavior and judgment for situation. Neurological: Alert and oriented to person, place, and time. Follows all commands. No focal deficits, speech is clear and fluent. Course Vital Signs Vital signs: Vital Signs Temperature 98 F 01/20/25 17:45 Pulse Rate 89 01/20/25 17:45 Respiratory Rate 18 01/20/25 17:45 Blood Pressure 187/90 H 01/20/25 17:45 Pulse Oximetry 95 01/20/25 17:45 Oxygen Delivery Room Air 01/20/25 17:45 Temperature 98 F 01/20/25 17:45 Pulse Rate 89 01/20/25 17:45 Respiratory Rate 18 01/20/25 17:45 Blood Pressure 187/90 H 01/20/25 17:45 Pulse Oximetry 98 01/20/25 21:24 Oxygen Delivery Room Air 01/20/25 21:24 Oxygen Flow Rate 3 01/20/25 18:19 MDM - Fall MDM Narrative Medical decision making narrative: The patient was evaluated by myself in the emergency department. History is obtained from patient who is an independent historian and physical exam was performed. External medical records were reviewed at this time. IV was established and pertinent tests were ordered. Patient was administered 50 mcg of IV fentanyl and 4 mg of IV Zofran. EKG was obtained at this time and blood interpreted by me revealing sinus rhythm at a rate of 98 beats per minute, no evidence of acute ischemia. EKG currently pending official cardiology read. Blood work was obtained at this time and platelet interpreted by me revealing no acute process. Imaging studies obtained included CXR, CT lumbar spine and CT pelvis without IV contrast which was independently interpreted by me revealing: IMPRESSION: 1. Minimally displaced right femoral subcapital fracture. 2. No acute abnormality of the lumbar spine. 3. Severe lumbar spondylosis. At this time, case was discussed with the on-call orthopedic surgeon Dr. Page at 2014 who accepted consult. Per his request, AP pelvis x-ray with right hip was obtained at this time and independent interpreted by me again revealing the minimally displaced right femoral subcapital fracture. Differential diagnosis considerations include fracture, dislocation, musculoskeletal strain. Comorbidities impacting this visit include history of chronic back pain. I have evaluated and discussed social determinants of health with the patient that could potentially impact subsequent diagnosis and treatment plans. On repeat assessment of the patient, reevaluation revealed that the patient is doing well and is in no acute distress. Patient symptoms have improved since she arrived to our emergency department. Repeat vital signs were all reviewed and noted to be stable. Differential diagnosis and treatment plan were discussed with the patient at bedside. Patient agrees with discussion and after shared medical decision making agrees with admission. All questions were answered to the patient's satisfaction. Case was discussed with the on-call hospitalist Dr. Mccormick at 2119 and he accepted admission. Lab Data 01/20/25 20:53 01/20/25 20:53 Labs: Lab Results 01/20/25 Range/Units 20:53 WBC 9.4 (4.5-10.0) K/mm3 RBC 4.00 L (4.2-5.4) M/mm3 Hgb 11.2 L (12.0-15.0) g/dL Hct 34.1 L (37.0-47.0) % MCV 85.3 (80-100) fl MCH 28.0 (26-34) pg MCHC 32.8 (32-36) g/dl RDW 13.9 (11.5-14.5) % Plt Count 190 (150-375) k/mm3 MPV 9.7 (7.4-10.4) fl Immature Gran % (Auto) 0.9 H (0-0.5) % Neut % (Auto) 72.2 (45.5-73.1) % Lymph % (Auto) 18.7 (18.3-44.2) % [place] % (Auto) 6.7 (2.6-8.5) % Eos % (Auto) 1.2 (0-4.4) % Baso % (Auto) 0.3 (0.2-1.2) % Lymph # (Auto) 1.75 (0.9-3.2) K/mm3 [place] # (Auto) 0.6 (0.1-0.6) K/mm3 Eos # (Auto) 0.1 (0-0.3) K/mm3 Baso # (Auto) 0.0 (0.0-0.1) K/mm3 Abs Immat Gran (auto) 0.08 H (0.00-0.031) K/mm3 Absolute Neuts (auto) 6.8 H (1.3-6.7) K/mm3 Absolute Nucleated RBC 0.000 (0.0-0.012) K/mm3 Nucleated RBC % 0.0 (0.0-0.2) % Sodium 136 L (137-145) mmol/L Potassium 4.3 (3.4-5.0) mmol/L Chloride 102 (98-107) mmol/L Carbon Dioxide 27 (22-30) mmol/L Anion Gap 7 (4-12) mmol/L BUN 28 H (7-17) mg/dL Creatinine 1.17 H (0.7-1.0) mg/dL Estim Creat Clear Calc 32 ml/min Estimated GFR 44 L (59 - ) Glucose 184 H (65-110) mg/dL Calcium 8.9 (8.4-10.2) mg/dL Magnesium 1.9 (1.6-2.3) mg/dL Total Bilirubin 0.3 (0.2-1.3) mg/dL AST 34 (14-36) U/L ALT 25 (6-35) U/L Alkaline Phosphatase 105 (38-126) U/L Total Protein 6.9 (6.3-8.2) g/dL Albumin 4.0 (3.5-5.1) g/dL Discharge Plan Discharge Clinical Impression: Fall from ground level, Closed subcapital fracture of neck of right femur Patient Disposition: Still a Patient Condition: Stable Patient Language: Northern Irish Prescriptions: No Action simvastatin 10 mg tablet 20 mg PO DAILY spironolactone 25 mg tablet 25 mg PO DAILY clonidine HCl 0.2 mg tablet 0.2 mg PO Q12H sertraline 50 mg tablet 100 mg PO HS Ozempic 1 mg/dose (4 mg/3 mL) pen injector 2 mg SUBCUT WEEKLY Patient Comments: administer on Thursday carvedilol [Coreg] 25 mg tablet 50 mg PO .Q12HR Rx Instructions: must administer with a meal/food hydrocodone-acetaminophen 5-325 mg tablet 1 tablet PO Q12H melatonin 10 mg capsule 10 mg PO HS PRN (Reason: sleep) omeprazole 20 mg capsule,delayed release(DR/EC) 20 mg PO HS terazosin 2 mg capsule 2 mg PO HS cholecalciferol (vitamin D3) 1,250 mcg (50,000 unit) capsule 1,250 mcg PO .biweekly furosemide [Lasix] 20 mg tablet 20 mg PO QAM Qty: 90 3RF allopurinol 100 mg tablet 50 mg PO DAILY gabapentin 300 mg capsule 300 mg PO TID ropinirole 0.25 mg tablet 0.25 mg PO HS diphenhydramine HCl [Banophen] 25 mg capsule 50 mg PO HS PRN (Reason: Insomnia) Qty: 1 0RF Humalog U-100 Insulin 100 unit/mL cartridge 8 unit subcut TIDWM Qty: 15 0RF insulin degludec [Tresiba FlexTouch U-200] 200 unit/mL (3 mL) insulin pen 36 unit SUBCUT HS Qty: 1 0RF Follow-up/Referrals: PHYSICIAN,SOCIAL SECRETARY [Non-Staff, Internal Medicine] Time of Disposition: 20:45
--- NOTE | 2025-01-20 20:16 | ECG_ITS ---
Test Date: 2025-01-20 21:11:59 Measurements Intervals [place] Rate: 93 P: 53 SD: 202 QRS: 0 QRSD: 90 T: 133 QT: 380 QTc: 473 Interpretive Statements SINUS RHYTHM POSSIBLE LEFT ATRIAL ENLARGEMENT [-0.1mV P-WAVE IN V1/V2] POSSIBLE ANTEROSEPTAL INFARCTION , OF INDETERMINATE AGE POSSIBLE INFERIOR INFARCT, AGE INDETERMINATE LEFT VENTRICULAR HYPERTROPHY AND ST-T WAVE CHANGES Compared to ECG 12/16/2024 12:34:18 NO SIGNIFICANT CHANGES Electronically Signed On 01-21-2025 10:51:41 CDT by Abilio Barnett M.D.
[2025-01-20 20:57] LABS: Hematocrit 34.1 % (37.0-47.0); Hemoglobin 11.2 g/dL (12.0-15.0); Immature Granulocyte Percent A 0.9 % (0-0.5); Lymphocytes Absolute Auto 1.75 K/mm3 (0.9-3.2); Mean Corpuscular HGB Conc 32.8 g/dl (32-36); Mean Corpuscular Hemoglobin 28.0 pg (26-34); Mean Corpuscular Volume 85.3 fl (80-100); Nucleated Red Blood Cells Absolute Auto 0.000 K/mm3 (0.0-0.012); Nucleated Red Blood Cells Perc 0.0 % (0.0-0.2); Platelet Count Result 190 k/mm3 (150-375); Red Blood Count 4.00 M/mm3 (4.2-5.4); White Blood Count 9.4 K/mm3 (4.5-10.0)
--- NOTE | 2025-01-20 21:02 | PC.NURSE ---
This RN talked to pt daughter Paige and gave update on pt status. Will call back with a room number.
[2025-01-20] MEDS: fentaNYL CITRATE INJ (*CRX) 100 MCG/2 ML VIAL 50 MCG IV PUSH (21:06)
[2025-01-20] MEDS: ONDANSETRON INJ 4 MG/2 ML VIAL IV PUSH (21:07)
[2025-01-20 21:18] LABS: Alanine Aminotransferase 25 U/L (6-35); Albumin Level 4.0 g/dL (3.5-5.1); Alkaline Phosphatase 105 U/L (38-126); Anion Gap 7 mmol/L (4-12); Aspartate Amino Transferase 34 U/L (14-36); Bilirubin,Total 0.3 mg/dL (0.2-1.3); Blood Urea Nitrogen 28 mg/dL (7-17); Calcium 8.9 mg/dL (8.4-10.2); Carbon Dioxide 27 mmol/L (22-30); Chloride 102 mmol/L (98-107); Estimated CRCL calculation 32 ml/min; Estimated Glomerular Filt Rate 44; Glucose 184 mg/dL (65-110); Magnesium 1.9 mg/dL (1.6-2.3); Potassium 4.3 mmol/L (3.4-5.0); Sodium 136 mmol/L (137-145); Total Protein 6.9 g/dL (6.3-8.2)
[2025-01-20] MEDS: SODIUM CHLORIDE 0.9% IV 1,000 ML 100 ML IV CONT (21:53)
--- NOTE | 2025-01-20 22:12 | PC.NURSE ---
This RN called pt daughter and gave update on pt room #.
--- NOTE | 2025-01-20 22:14 | PC.NURSE ---
This RN called [facility] and gave update on pt and talked to Lorelei HAND.
--- NOTE | 2025-01-20 22:17 | PC.NURSE ---
This RN talked to hospitalist about pain medication. will provide new orders once allergies are checked.
--- NOTE | 2025-01-20 22:44 | ADMGEN ---
This patient, Ceci Hackett, was admitted to Medical Room 243-. Patient/family oriented to hospital policies and general routines including ID bracelet, bed and alarms, visiting hours, pain management, procedures, bathroom and other care routines, personal items, smoking policy, room service/diet, and visiting hours. Information on how to activate the Rapid Response Team has been discussed. Patient/Family are encouraged to report perceived risks to care and to ask questions if they do not understand what they are told or what they should do.
[2025-01-20] MEDS: HYDROmorphone HCL INJ (*CRX) 1 MG/ML SYR 0.5 MG IV PUSH (22:45)
[2025-01-21] VITALS (13 sets, daily range): BP systolic 132–175; BP diastolic 58–86; PULSE 84–106; RESP 16–24; TEMP 36.5–37.5; O2SAT 90–98
--- NOTE | 2025-01-21 00:36 | PM.IMHP ---
H&P: HPI History of Present Illness Date/Time: 01/21/25 00:36 Chief Complaint: Ground level fall Narrative: 84-year-old female with PMH gout, anemia, osteoarthritis, GERD, CKD, hyperlipidemia, hypertension, insulin-dependent diabetes mellitus, heart failure presents to [facility] ER 01/20/2025 with a ground level fall. She is a resident at [facility] and at baseline uses a walker and a cane. She was walking on flat surface and went to open the automatic doors when she tripped and fell. She does not hit her head. She complains of right hip pain and lower back pain worsen her usual chronic back pain. She denied any loss of consciousness, seizure activity. She has not been ill recently. Saturating 92% on room air, afebrile, blood pressure 187/90 improving to 165/88. WBC 9.4, hemoglobin 11.2, serum creatinine 1.17. Chest x-ray without acute process. Lumbar spine CT without acute abnormalities. Pelvis CT demonstrating minimally displaced right femoral subcapital fracture. Orthopedic surgery consulted from the ER. She was given fentanyl 50 mcg IV x1, saturation dropped to 88% on room air was placed on 1 L nasal cannula. She was started on normal saline. Of note, patient reports her nursing facility. Giving her diuretic and she had more swelling, on 01/16/2025 she visited her PCP and she was restarted on diuretic at her swelling improved. She is a lifelong nonsmoker. She reports her pain is approaching at 10 as the Dilaudid is wearing off. Review of Systems Review of Systems: All systems reviewed & are unremarkable except as noted in HPI and below (Subjective) PMFSH Past Medical History Medical History Chronic back pain Gout Compression fracture Basal cell carcinoma of skin Anemia Osteoarthritis Gastroesophageal reflux disease Chronic kidney disease, stage 3b Hyperlipidemia Hypertension Insulin dependent diabetes mellitus Heart failure, type unknown Cerebrovascular accident residual right sided weakness Gout Surgical History Surgical History Status post insertion of spinal cord stimulator Family History Family History Daughter Cancer Mother Diabetes mellitus Sibling Diabetes mellitus Social History Social History Social History: Surrogate medical decision maker: Paige Goncalves, daughter. Code status: Full code. Smoking status: Never smoker Alcohol intake: current Drinks per week: 1 Substance use: never Substance use type: marijuana Other substance usage details: dtr grows marijuana, intake variety of routes Last use: 2-3 months ago Do You Feel Safe in your Home?: Yes Lack of Transportation: No Lack of Food: Never True Current Housing: I Have Housing Concerned About Future Housing: No Difficulty Paying Gas/Electric Bills: No Difficulty Paying for Meds: No Currently Unemployed: No Education: High School Diploma/GED Difficulty w/ Childcare or Family Care: No Living arrangements: assisted living Occupation/Education: retired Spiritual care concerns: No Meds Home Medications and Allergies Home Medications ?Medication ?Instructions ?Recorded ?Confirmed ?Type clonidine HCl 0.2 mg tablet 0.2 mg PO Q12H 05/04/23 01/20/25 History semaglutide 1 mg/dose (4 mg/3 mL) 2 mg subcut WEEKLY 05/04/23 01/20/25 History subcutaneous pen injector (Ozempic) sertraline 50 mg tablet 100 mg PO HS 05/04/23 01/20/25 History simvastatin 10 mg tablet 20 mg PO DAILY 05/04/23 01/20/25 History spironolactone 25 mg tablet 25 mg PO DAILY 05/04/23 01/20/25 History carvedilol 25 mg tablet (Coreg) 50 mg PO .Q12HR 10/31/24 01/20/25 History cholecalciferol (vitamin D3) 1,250 1,250 mcg PO .biweekly 10/31/24 01/20/25 History mcg (50,000 unit) capsule hydrocodone 5 mg-acetaminophen 325 1 tablet PO Q12H 10/31/24 01/20/25 History mg tablet melatonin 10 mg capsule 10 mg PO HS PRN sleep 10/31/24 01/20/25 History omeprazole 20 mg capsule,delayed 20 mg PO HS 10/31/24 01/20/25 History release terazosin 2 mg capsule 2 mg PO HS 10/31/24 01/20/25 History allopurinol 100 mg tablet 50 mg PO DAILY 12/16/24 01/20/25 History gabapentin 300 mg capsule 300 mg PO TID 12/16/24 01/20/25 History ropinirole 0.25 mg tablet 0.25 mg PO HS 12/16/24 01/20/25 History diphenhydramine HCl 25 mg capsule 50 mg (2 x 25 mg) PO HS PRN 12/19/24 01/20/25 Rx (Banophen) Insomnia #1 cap insulin degludec 200 unit/mL (3 36 unit (0.18 mL) subcut HS #1 mL 12/19/24 01/20/25 Rx mL) subcutaneous pen (Tresiba FlexTouch U-200 insulin) insulin lispro 100 unit/mL 8 unit (0.08 mL) subcut TIDWM #15 12/19/24 01/20/25 Rx subcutaneous cartridge (Humalog mL U-100 Insulin) furosemide 20 mg tablet (Lasix) 20 mg PO QAM #90 tabs 01/17/25 01/20/25 Rx ferrous sulfate 325 mg (65 mg 325 mg PO DAILY 01/20/25 01/20/25 History iron) tablet (FeroSul) Allergies Allergy/AdvReac Type Severity Reaction Status Date / Time codeine Allergy Mild Unknown Verified 01/20/25 18:04 Penicillins Allergy Mild Unknown Verified 01/20/25 18:04 latex Allergy Rash Verified 01/20/25 18:04 morphine Allergy Hives Verified 01/20/25 18:04 shrimp Allergy Swelling Verified 01/20/25 18:04 amlodipine (From [facility]) AdvReac Mild Unknown Verified 01/20/25 18:04 atorvastatin AdvReac Mild Unknown Verified 01/20/25 18:04 erythromycin base AdvReac Mild Unknown Verified 01/20/25 18:04 Vital Signs Vital Signs - 24 hr 01/20/25 17:45 01/20/25 18:19 01/20/25 20:00 Temperature 98 F Pulse Rate 89 89 Respiratory Rate 18 15 Blood Pressure 187/90 H Pulse Oximetry 95 97 100 Oxygen Delivery Room Air Nasal Cannula Oxygen Flow Rate 3 01/20/25 20:15 01/20/25 20:30 01/20/25 20:45 Temperature Pulse Rate 90 88 92 Respiratory Rate 14 15 12 Blood Pressure Pulse Oximetry 99 100 99 Oxygen Delivery Oxygen Flow Rate 01/20/25 21:00 01/20/25 21:15 01/20/25 21:16 Temperature Pulse Rate 93 96 95 Respiratory Rate 19 13 14 Blood Pressure 184/86 H Pulse Oximetry 100 100 96 Oxygen Delivery Oxygen Flow Rate 01/20/25 21:24 01/20/25 21:32 01/20/25 22:47 Temperature 98.6 F Pulse Rate 94 97 Respiratory Rate 16 20 Blood Pressure 176/71 H 189/78 H Pulse Oximetry 98 98 94 Oxygen Delivery Room Air Oxygen Flow Rate 01/20/25 22:55 01/20/25 23:00 01/20/25 23:40 Temperature 98.9 F Pulse Rate 90 Respiratory Rate 20 Blood Pressure 165/88 H Pulse Oximetry 100 Oxygen Delivery Room Air Room Air Oxygen Flow Rate Exam Const: General: comfortable and no acute distress HENMT: Mouth: Yes dry mucous membranes Eyes: Pupils: Equal, round and reactive pupils present Neck: Neck: supple Resp: Effort & Inspection: normal respiratory effort Other: Mild bibasilar crackles Cardio: Rate: regular rate Rhythm: regular rhythm Heart sounds: no gallops, no murmurs and no rubs GI: Inspection: non-distended GI Palp: Yes Soft to palpation : General: Yes bladder normal to palpation Neuro: Other: Motion of the right lower extremity limited by pain at the right hip Extrem: General: no edema H&P: Results Labs Labs: Short CBC 01/20/25 Range/Units 20:53 WBC 9.4 (4.5-10.0) K/mm3 Hgb 11.2 L (12.0-15.0) g/dL Hct 34.1 L (37.0-47.0) % Plt Count 190 (150-375) k/mm3 BMP 01/20/25 20:53 Sodium 136 L Potassium 4.3 Chloride 102 Carbon Dioxide 27 BUN 28 H Creatinine 1.17 H Glucose 184 H Calcium 8.9 Liver Function 01/20/25 Range/Units 20:53 Total Bilirubin 0.3 (0.2-1.3) mg/dL AST 34 (14-36) U/L ALT 25 (6-35) U/L Alkaline Phosphatase 105 (38-126) U/L Albumin 4.0 (3.5-5.1) g/dL Assessment and Plan Assessment and plan (1) Hypertension: Qualifiers: Hypertension type: unspecified Qualified Code(s): I10 - Essential (primary) hypertension Code(s): I10 - Essential (primary) hypertension Status: Acute (2) Heart failure, type unknown: Code(s): I50.9 - Heart failure, unspecified Status: Acute (3) Insulin dependent diabetes mellitus: Status: Acute (4) Closed subcapital fracture of neck of right femur: Code(s): S72.011A - Unspecified intracapsular fracture of right femur, initial encounter for closed fracture Status: Acute (5) Fall from ground level: Code(s): W18.30XA - Fall on same level, unspecified, initial encounter Status: Acute (6) Acute hypoxemic respiratory failure: Code(s): J96.01 - Acute respiratory failure with hypoxia Status: Acute Plan 84-year-old female with PMH gout, anemia, osteoarthritis, GERD, CKD, hyperlipidemia, hypertension, insulin-dependent diabetes mellitus, heart failure presents to [facility] ER 01/20/2025 with a ground level fall. She is a resident at [facility] and at baseline uses a walker and a cane. She was walking on flat surface and went to open the automatic doors when she tripped and fell. She does not hit her head. She complains of right hip pain and lower back pain worsen her usual chronic back pain. She denied any loss of consciousness, seizure activity. She has not been ill recently. Saturating 92% on room air, afebrile, blood pressure 187/90 improving to 165/88. WBC 9.4, hemoglobin 11.2, serum creatinine 1.17. Chest x-ray without acute process. Lumbar spine CT without acute abnormalities. Pelvis CT demonstrating minimally displaced right femoral subcapital fracture. Orthopedic surgery consulted from the ER. She was given fentanyl 50 mcg IV x1, saturation dropped to 88% on room air was placed on 1 L nasal cannula. She was started on normal saline. Of note, patient reports her nursing facility. Giving her diuretic and she had more swelling, on 01/16/2025 she visited her PCP and she was restarted on diuretic at her swelling improved. She is a lifelong nonsmoker. She reports her pain is approaching at 10 as the Dilaudid is wearing off. ----- Bed rest. NPO. Orthopedic surgery consultation. Tylenol, [place]phzib[place], Dilaudid p.r.n.. Patient reports she had hives with codeine and morphine many years ago but she is amenable to her current regimen with Dilaudid and Hephzibah. She has not had issues with does, we discussed the risk. She reports she is holding her breath when she has pain, she is currently on 1 L nasal cannula. She will remain on telemetry with continuous pulse oximetry. We discussed the risks versus benefits of narcotics and she is willing to proceed with the benefits the pain control. She does not have any lung conditions, lifelong nonsmoker, does not use a CPAP at night. Wean oxygen per protocol. Will discontinue fluids that were started in the ER as she has a history of heart failure. At the same time, hold her diuretic and monitor her volume status. Daily weights, intake/output. Blood pressure elevated, continue Coreg perioperatively and hold other [employer]BIR[employer] MIDWIFE antihypertensives and restart those as appropriate if she is continuing to have elevated blood pressures. Accu-Cheks q.6 hours with low-dose insulin sliding scale. She has a continuous glucose monitor and we will turn that off. She takes basal bolus insulin at home and we will hold that as well since she is NPO. Monitor renal function. Patient wishes to be DNR. She lives at [facility] and at baseline uses a walker/cane for ambulation. Saline lock IV. Resume [employer]BIR[employer] MIDWIFE PPI. NPO. Orthopedic surgery consultation, PT/OT eval to be ordered when off of bed rest. SCDs for DVT prophylaxis only for now, initiate DVT prophylaxis in conjunction with Orthopedic surgery depending on probable surgical intervention. Hospitalist [facility] Advance Care Plan I have confirmed that the patient's Advanced Care Plan is present, code status is documented, or surrogate decision maker is listed in patient medical record.: Yes Medication Reconciliation I have utilized all available resources to obtain, update and review the patients current medications (includes all prescriptions, OTC, herbals, cannabis, and nutritional supplements).: Yes
[2025-01-21] MEDS: SERTRALINE HCL 50 MG TABLET 100 MG PO ×2 (00:57→20:42)
[2025-01-21] MEDS: MELATONIN 5 MG TABLET 10 MG PO ×2 (00:57→20:41)
[2025-01-21] MEDS: HYDROmorphone HCL INJ (*CRX) 1 MG/ML SYR 0.5 MG IV PUSH ×7 (01:15→20:40)
[2025-01-21 05:15] LABS: Hematocrit 31.8 % (37.0-47.0); Hemoglobin 10.3 g/dL (12.0-15.0); Mean Corpuscular HGB Conc 32.4 g/dl (32-36); Mean Corpuscular Hemoglobin 27.9 pg (26-34); Mean Corpuscular Volume 86.2 fl (80-100); Platelet Count Result 164 k/mm3 (150-375); Red Blood Count 3.69 M/mm3 (4.2-5.4); White Blood Count 8.9 K/mm3 (4.5-10.0)
[2025-01-21 05:28] LABS: INR 1.3; Prothrombin Time 15.6 Seconds (11.1-14.7)
[2025-01-21 05:37] LABS: Anion Gap 5 mmol/L (4-12); Blood Urea Nitrogen 26 mg/dL (7-17); Calcium 8.4 mg/dL (8.4-10.2); Carbon Dioxide 26 mmol/L (22-30); Chloride 104 mmol/L (98-107); Estimated CRCL calculation 36 ml/min; Estimated Glomerular Filt Rate 51; Glucose 204 mg/dL (65-110); Magnesium 1.8 mg/dL (1.6-2.3); Potassium 4.9 mmol/L (3.4-5.0); Sodium 135 mmol/L (137-145)
--- NOTE | 2025-01-21 06:29 | PM.IMPN ---
Progress Note: A&P Assessment and Plan (1) Fall from ground level: Code(s): W18.30XA - Fall on same level, unspecified, initial encounter Status: Acute Assessment and Plan: Mechanical ground level fall, denies head strike and LOC. Denies dizziness or lightheadedness prior to fall. Denies seizure like activity. Uses a walker and a cane at baseline - No signs of infection, WBC WNL and remains afebrile - Chest XR: Unremarkable - Hip/pelvis XR: Right femoral subcapital fracture - Pelvis CT: Minimally displaced right femoral subcapital fracture - Lumbar spine CT: severe lumbar spondylosis - See plan below for right femoral subcapital fracture (2) Closed subcapital fracture of neck of right femur: Code(s): S72.011A - Unspecified intracapsular fracture of right femur, initial encounter for closed fracture Status: Acute Assessment and Plan: Hip/pelvis XR: Right femoral subcapital fracture Pelvis CT: Minimally displaced right femoral subcapital fracture Analgesics: Tylenol, [place], Dilaudid p.r.n. DVT ppx: SCD Diet: NPO pending surgical intervention Incentive spirometer Carey in place for immobility, remove when appropriate PT/OT per ortho recommendations Ortho consulted (3) Acute hypoxemic respiratory failure: Code(s): J96.01 - Acute respiratory failure with hypoxia Status: Acute Assessment and Plan: Patients oxygen saturations were stable on arrival however per chart review saturation dropped to 88% on room air after receiving fentanyl 50 mcg IV x1. Patient was placed on 2L NC at that time and saturations remain stable, wean as tolerated to maintain SpO2 > 90% Chest XR unremarkable on arrival, hypoxia likely related to narcotic use and the fact that patient states holding her breath when in pain Patient was also started on IV fluids which have since been discontinued given heart failure history, continue to monitor volume status Patient able to be weaned back to room air, saturations remain stable. (4) Hypertension: Qualifiers: Hypertension type: unspecified Qualified Code(s): I10 - Essential (primary) hypertension Code(s): I10 - Essential (primary) hypertension Status: Acute Assessment and Plan: Chronic, continue home medication - carvedilol 50 mg BID - lasix and spironolactone on hold perioperatively, resume as appropriate - blood pressures stable, continue to monitor (5) Heart failure, type unknown: Code(s): I50.9 - Heart failure, unspecified Status: Acute Assessment and Plan: Chronic, does not appear in acute exacerbation Echo 11/02/2024: LVEF 60-65% with grade I diastolic dysfunction Monitor volume status Daily weights Monitor I/O (6) Insulin dependent diabetes mellitus: Status: Acute Assessment and Plan: - hypoglycemia protocol - POC blood glucose ACHS - home medication - ozempic 2 mg weekly, tresiba 36 units HS, lispro 8 units TIDWM - correct regimen ordered - SSI, patient currently NPO for possible surgery. Resume diabetes regimen after NPO status discontinued. - A1C 9 on 10/31/24 Time Spent With Patient Time with patient: 25 - 35 minutes Subjective Date/time seen: 01/21/25 06:29 Interval history: 84-year-old female with past medical history of gout, anemia, osteoarthritis, GERD, CKD, hyperlipidemia, hypertension, insulin-dependent diabetes mellitus, and heart failure presents to the hospital with a ground level fall. Patient is pleasant lying in bed. She endorses pain to the right hip extending down to the knee. She denies any associated tingling/numbness. Patient has no other complaints denying chest pain, palpitations, nausea/vomiting, abdominal pain. During assessment was able to wean patient back to room air with stable saturations. Review of Systems Review of Systems: All systems reviewed & are unremarkable except as noted in HPI and below Exam Narrative: AF HR 97 RR 20 SpO2 93 RA BP 143/60 General: female in no acute respiratory distress who is nontoxic appearing, lying semi recumbent in bed. HEENT: Normocephalic. Atraumatic. Extraocular movement intact. Sclera clear and anicteric. No facial asymmetry. Chest: Lungs are clear to auscultation bilaterally. No wheezes or crackles. CV: Heart was regular rate and rhythm. Abd: Abdomen was soft. Nontender. Nondistended. Positive bowel sounds. Ext: No clubbing, cyanosis, or edema. DP pulses bilaterally. Sensation intact. Wiggling toes. Neuro: Patient is alert and oriented x4. Speech is clear. Objective Data Vital Signs Vital Signs: Vital Signs - 24 hr 01/20/25 17:45 01/20/25 18:19 01/20/25 20:00 Temperature 98 F Pulse Rate 89 89 Respiratory Rate 18 15 Blood Pressure 187/90 H Pulse Oximetry 95 97 100 Oxygen Delivery Room Air Nasal Cannula Oxygen Flow Rate 3 01/20/25 20:15 01/20/25 20:30 01/20/25 20:45 Temperature Pulse Rate 90 88 92 Respiratory Rate 14 15 12 Blood Pressure Pulse Oximetry 99 100 99 Oxygen Delivery Oxygen Flow Rate 01/20/25 21:00 01/20/25 21:15 01/20/25 21:16 Temperature Pulse Rate 93 96 95 Respiratory Rate 19 13 14 Blood Pressure 184/86 H Pulse Oximetry 100 100 96 Oxygen Delivery Oxygen Flow Rate 01/20/25 21:24 01/20/25 21:32 01/20/25 22:47 Temperature 98.6 F Pulse Rate 94 97 Respiratory Rate 16 20 Blood Pressure 176/71 H 189/78 H Pulse Oximetry 98 98 94 Oxygen Delivery Room Air Oxygen Flow Rate 01/20/25 22:55 01/20/25 23:00 01/20/25 23:40 Temperature 98.9 F Pulse Rate 90 Respiratory Rate 20 Blood Pressure 165/88 H Pulse Oximetry 100 Oxygen Delivery Room Air Room Air Oxygen Flow Rate 01/21/25 00:00 01/21/25 00:00 01/21/25 04:00 Temperature Pulse Rate 101 H 97 Respiratory Rate Blood Pressure Pulse Oximetry 90 Oxygen Delivery Nasal Cannula Oxygen Flow Rate 2 01/21/25 04:00 Temperature 98.6 F Pulse Rate 95 Respiratory Rate 20 Blood Pressure 157/81 H Pulse Oximetry 97 Oxygen Delivery Oxygen Flow Rate Intake/Output Intake/Output: Intake & Output 01/18/25 01/19/25 01/20/25 01/21/25 23:59 23:59 23:59 23:59 Intake Total 100 Output Total 450 Balance -350 Meds/Results Medications: Active Medications Generic Name Dose Route Start Last Admin Trade Name Freq PRN Reason Stop Dose Admin Acetaminophen 500 mg 01/20/25 22:19 Acetaminophen 500 Mg Tablet PO Q6H PRN Mild Pain (1-3) or Fever Hydrocodone Bitart/Acetaminophen 1 tab 01/20/25 22:19 Hydrocodone/Acetaminophen (*Crx) 10-325 Mg Tablet PO Q4H PRN Pain Rated 4-6 Carvedilol 50 mg 01/21/25 09:00 Carvedilol 25 Mg Tablet PO Q12HR KADEN Dextrose 12.5 gm 01/21/25 00:35 Dextrose 50% 25 Gm/50 Ml Syringe IV PUSH PRN PRN Hypoglycemia Protocol Glucose 15 gm 01/21/25 00:35 Glucose Oral Gel 15 Gm Of Glucse In 37.5 Gm Tube PO PRN PRN Hypoglycemia Protocol Hydromorphone HCl 0.5 mg 01/20/25 22:17 01/21/25 05:35 Hydromorphone Hcl Inj (*Crx) 1 Mg/Ml Syr IV PUSH 0.5 mg Q3H PRN Administration Pain Rated 7-10 Dextrose 1,000 mls @ 100 mls/hr 01/21/25 00:35 Dextrose 5% 1,000 Ml IVPB PRN PRN Hypoglycemia Protocol Insulin Aspart 2 - 5 units 01/21/25 06:00 01/21/25 05:10 Insulin Aspart (*Bkc) 100 Units/Ml SUB-Q Not Given Q6HR KADEN Protocol Melatonin 10 mg 01/21/25 00:34 01/21/25 00:57 Melatonin 5 Mg Tablet PO 10 mg HS PRN Administration Sleep Pantoprazole Sodium 40 mg 01/21/25 21:00 Pantoprazole 40 Mg Tablet PO HS KADEN Sertraline HCl 100 mg 01/21/25 00:50 01/21/25 00:57 Sertraline Hcl 50 Mg Tablet PO 100 mg HS KADEN Administration Radiology Results: ITS Impressions Lumbar Spine CT 01/20/25 19:50 IMPRESSION: 1. No acute abnormality of the cervical spine. 2: Severe lumbar spondylosis. Pelvis CT 01/20/25 19:53 IMPRESSION: 1. Minimally displaced right femoral subcapital fracture. Hip/Pelvis X-Ray 01/20/25 20:36 Impression: 1: Right femoral subcapital fracture. Chest X-Ray 01/20/25 20:37 IMPRESSION: 1: NO ACUTE CARDIOPULMONARY DISEASE. Labs Labs: Laboratory Results - last 24 hr 01/20/25 01/21/25 20:53 04:24 WBC 9.4 8.9 RBC 4.00 L 3.69 L Hgb 11.2 L 10.3 L Hct 34.1 L 31.8 L MCV 85.3 86.2 MCH 28.0 27.9 MCHC 32.8 32.4 RDW 13.9 13.9 Plt Count 190 164 MPV 9.7 9.7 Immature Gran % (Auto) 0.9 H Neut % (Auto) 72.2 Lymph % (Auto) 18.7 [place] % (Auto) 6.7 Eos % (Auto) 1.2 Baso % (Auto) 0.3 Lymph # (Auto) 1.75 [place] # (Auto) 0.6 Eos # (Auto) 0.1 Baso # (Auto) 0.0 Abs Immat Gran (auto) 0.08 H Absolute Neuts (auto) 6.8 H Absolute Nucleated RBC 0.000 Nucleated RBC % 0.0 PT 15.6 H INR 1.3 Sodium 136 L 135 L Potassium 4.3 4.9 Chloride 102 104 Carbon Dioxide 27 26 Anion Gap 7 5 BUN 28 H 26 H Creatinine 1.17 H 1.04 H Estim Creat Clear Calc 32 36 Estimated GFR 44 L 51 L Glucose 184 H 204 H Calcium 8.9 8.4 Magnesium 1.9 1.8 Total Bilirubin 0.3 AST 34 ALT 25 Alkaline Phosphatase 105 Total Protein 6.9 Albumin 4.0 Blood Type O Positive Antibody Screen Negative
--- NOTE | 2025-01-21 11:25 | PM.CNOR ---
Assessment and Plan Assessment and plan (1) Closed subcapital fracture of neck of right femur: Qualifiers: Encounter type: initial encounter Qualified Code(s): S72.011A - Unspecified intracapsular fracture of right femur, initial encounter for closed fracture Code(s): S72.011A - Unspecified intracapsular fracture of right femur, initial encounter for closed fracture Status: Acute Assessment and Plan: New patient evaluation for chief complaint fall with right hip fracture. History, physical exam and radiographs reviewed with the patient and her daughter. Right hip femoral neck fracture. Discussed the condition, nature, etiology and course of natural history with the patient. Treatment options including surgical and nonoperative treatment were reviewed. Risks and benefits of each as well as alternatives reviewed. The patient's questions were answered. Conservative treatment ice, pain control. Patient and family desire operative treatment. (2) Fall from ground level: Code(s): W18.30XA - Fall on same level, unspecified, initial encounter Status: Acute (3) Insulin dependent diabetes mellitus: Status: Acute (4) Chronic kidney disease, stage 3b: Code(s): N18.32 - Chronic kidney disease, stage 3b Status: Acute Plan Discussed nonoperative and operative treatment options with the patient. Risks and benefits of each as well as alternatives were reviewed. All of the patient's questions were answered. The risks of surgery reviewed including but not limited to: Neurovascular damage, wound complication, infection, blood clot, pulmonary embolus, stroke, myocardial infarction, and anesthetic risks up to and including . Continued pain and possible dysfunction were explained. Specific risks of the procedure including later recurrence of deformity. No guarantees were offered. If hardware used, discussed risk of failure/ breakage and possible need for removal. If complications occur, the patient understands the need for further treatment, possible further surgery. Patient verbalizes understanding and wishes to proceed. PLAN: Right hip pinning History of Present Illness HPI Consult date: 01/21/25 Requesting physician: Trang Nassar MD Chief complaint: right hip fracture Narrative: 84-year-old woman with insulin-dependent diabetes and chronic kidney disease fall last night at skilled nursing. Right hip injury. Found to have right hip fracture. Admitted through the emergency room. Complains of right hip pain. Denies numbness or tingling. Denies loss of consciousness. Has chronic low back problems with previous spinal cord stimulator. Independent ambulator with use of a walker occasionally Review of Systems Constitutional: Constitutional: Denies fever(s) Eyes: Eyes: Denies blurry vision ENT: Denies Normal hearing present and Reports hearing loss Cardiovascular: Cardiovascular: Denies chest pain and Denies dyspnea Respiratory: Respiratory: Denies dyspnea and Denies wheezing Gastrointestinal: Gastrointestinal: Denies abdominal pain Genitourinary: Genitourinary: Denies urinary urgency Musculoskeletal: Musculoskeletal: Reports as per HPI and Denies numbness Integumentary/Breasts: Skin/Breast: Denies changing lesions and Denies sores Neurologic: Reports Normal hearing present, Denies behavioral changes, Denies confusion, Denies numbness and Denies convulsions Psychiatric: Psychiatric: Denies behavioral changes, Denies confusion and Denies hallucinations Endocrine: Endocrine: Denies heat intolerance Hematologic/Lymphatic: Hematologic/Lymphatic: Denies easy bleeding Allergic/Immunologic: Allergic/Immunologic: Denies wheezing PMFSH Past Medical History Medical History Chronic back pain Gout Compression fracture Basal cell carcinoma of skin Anemia Osteoarthritis Gastroesophageal reflux disease Chronic kidney disease, stage 3b Hyperlipidemia Hypertension Insulin dependent diabetes mellitus Heart failure, type unknown Cerebrovascular accident residual right sided weakness Gout Surgical History Surgical History Status post insertion of spinal cord stimulator Family History Family History Daughter Cancer Mother Diabetes mellitus Sibling Diabetes mellitus Social History Social History Social History: Surrogate medical decision maker: Paige Goncalves, daughter. Code status: Full code. Smoking status: Never smoker Alcohol intake: current Drinks per week: 1 Substance use: never Substance use type: marijuana Other substance usage details: dtr grows marijuana, intake variety of routes Last use: 2-3 months ago Do You Feel Safe in your Home?: Yes Lack of Transportation: No Lack of Food: Never True Current Housing: I Have Housing Concerned About Future Housing: No Difficulty Paying Gas/Electric Bills: No Difficulty Paying for Meds: No Currently Unemployed: No Education: High School Diploma/GED Difficulty w/ Childcare or Family Care: No Living arrangements: assisted living Occupation/Education: retired Spiritual care concerns: No Meds Home Medications and Allergies Home Medications ?Medication ?Instructions ?Recorded ?Confirmed ?Type clonidine HCl 0.2 mg tablet 0.2 mg PO Q12H 05/04/23 01/20/25 History semaglutide 1 mg/dose (4 mg/3 mL) 2 mg subcut WEEKLY 05/04/23 01/20/25 History subcutaneous pen injector (Ozempic) sertraline 50 mg tablet 100 mg PO HS 05/04/23 01/20/25 History simvastatin 10 mg tablet 20 mg PO DAILY 05/04/23 01/20/25 History spironolactone 25 mg tablet 25 mg PO DAILY 05/04/23 01/20/25 History carvedilol 25 mg tablet (Coreg) 50 mg PO .Q12HR 10/31/24 01/20/25 History cholecalciferol (vitamin D3) 1,250 1,250 mcg PO .biweekly 10/31/24 01/20/25 History mcg (50,000 unit) capsule hydrocodone 5 mg-acetaminophen 325 1 tablet PO Q12H 10/31/24 01/20/25 History mg tablet melatonin 10 mg capsule 10 mg PO HS PRN sleep 10/31/24 01/20/25 History omeprazole 20 mg capsule,delayed 20 mg PO HS 10/31/24 01/20/25 History release terazosin 2 mg capsule 2 mg PO HS 10/31/24 01/20/25 History allopurinol 100 mg tablet 50 mg PO DAILY 12/16/24 01/20/25 History gabapentin 300 mg capsule 300 mg PO TID 12/16/24 01/20/25 History ropinirole 0.25 mg tablet 0.25 mg PO HS 12/16/24 01/20/25 History diphenhydramine HCl 25 mg capsule 50 mg (2 x 25 mg) PO HS PRN 12/19/24 01/20/25 Rx (Banophen) Insomnia #1 cap insulin degludec 200 unit/mL (3 36 unit (0.18 mL) subcut HS #1 mL 12/19/24 01/20/25 Rx mL) subcutaneous pen (Tresiba FlexTouch U-200 insulin) insulin lispro 100 unit/mL 8 unit (0.08 mL) subcut TIDWM #15 12/19/24 01/20/25 Rx subcutaneous cartridge (Humalog mL U-100 Insulin) furosemide 20 mg tablet (Lasix) 20 mg PO QAM #90 tabs 01/17/25 01/20/25 Rx ferrous sulfate 325 mg (65 mg 325 mg PO DAILY 01/20/25 01/20/25 History iron) tablet (FeroSul) Allergies Allergy/AdvReac Type Severity Reaction Status Date / Time codeine Allergy Mild Unknown Verified 01/20/25 18:04 Penicillins Allergy Mild Unknown Verified 01/20/25 18:04 latex Allergy Rash Verified 01/20/25 18:04 morphine Allergy Hives Verified 01/20/25 18:04 shrimp Allergy Swelling Verified 01/20/25 18:04 amlodipine (From [facility]) AdvReac Mild Unknown Verified 01/20/25 18:04 atorvastatin AdvReac Mild Unknown Verified 01/20/25 18:04 erythromycin base AdvReac Mild Unknown Verified 01/20/25 18:04 Vital Signs Vital Signs - 24 hr 01/20/25 17:45 01/20/25 18:19 01/20/25 20:00 Temperature 98 F Pulse Rate 89 89 Respiratory Rate 18 15 Blood Pressure 187/90 H Pulse Oximetry 95 97 100 Oxygen Delivery Room Air Nasal Cannula Oxygen Flow Rate 3 01/20/25 20:15 01/20/25 20:30 01/20/25 20:45 Temperature Pulse Rate 90 88 92 Respiratory Rate 14 15 12 Blood Pressure Pulse Oximetry 99 100 99 Oxygen Delivery Oxygen Flow Rate 01/20/25 21:00 01/20/25 21:15 01/20/25 21:16 Temperature Pulse Rate 93 96 95 Respiratory Rate 19 13 14 Blood Pressure 184/86 H Pulse Oximetry 100 100 96 Oxygen Delivery Oxygen Flow Rate 01/20/25 21:24 01/20/25 21:32 01/20/25 22:47 Temperature 98.6 F Pulse Rate 94 97 Respiratory Rate 16 20 Blood Pressure 176/71 H 189/78 H Pulse Oximetry 98 98 94 Oxygen Delivery Room Air Oxygen Flow Rate 01/20/25 22:55 01/20/25 23:00 01/20/25 23:40 Temperature 98.9 F Pulse Rate 90 Respiratory Rate 20 Blood Pressure 165/88 H Pulse Oximetry 100 Oxygen Delivery Room Air Room Air Oxygen Flow Rate 01/21/25 00:00 01/21/25 00:00 01/21/25 04:00 Temperature Pulse Rate 101 H 97 Respiratory Rate Blood Pressure Pulse Oximetry 90 Oxygen Delivery Nasal Cannula Oxygen Flow Rate 2 01/21/25 04:00 01/21/25 08:00 01/21/25 08:00 Temperature 98.6 F 98.2 F Pulse Rate 95 100 Respiratory Rate 20 20 Blood Pressure 157/81 H 143/60 H Pulse Oximetry 97 91 93 Oxygen Delivery Room Air Oxygen Flow Rate 01/21/25 08:23 Temperature Pulse Rate 97 Respiratory Rate Blood Pressure Pulse Oximetry Oxygen Delivery Oxygen Flow Rate Exam Const: General: No confusion Orientation/consciousness: patient oriented x3 and No confusion HENMT: Head: normal to inspection, normocephalic and atraumatic Eyes: Conjunctivae: conjunctivae normal Sclera: sclerae normal Neck: Neck: supple and nontender Chest: Chest palpation & inspection: normal inspection of the chest Resp: Effort & Inspection: normal respiratory effort and no audible wheezes Cardio: Rate: regular rate Rhythm: regular rhythm GI: GI Palp: No abdominal tenderness and Yes Soft to palpation : General: Yes deferred Skin: General skin exam: no rashes or lesions noted Neuro: General: patient oriented x3 and No confusion Extrem: General: capillary refill normal Right upper extremity: normal to inspection Left upper extremity: normal to inspection Right lower extremity: hip/thigh Details: tenderness Location: of the hip Location: laterally and swelling Location: at the hip ( mild), ankle ( able to actively flex and extend ankle) Details: no tenderness and foot Details: normal capillary refill, toes with normal ROM, vascular exam Details: dorsalis pedis pulse present and normal capillary refill and motor-sensory exam Details: light-touch normal Location: in all toes; no tenderness Left lower extremity: normal to inspection, hip/thigh Details: no tenderness and no swelling, lower leg, ankle (no calf tenderness) Details: normal ROM; no tenderness and foot Details: normal capillary refill, vascular exam Details: dorsalis pedis pulse present and normal capillary refill and motor-sensory exam light-touch normal in all toes Psych: Affect: normal affect Results Labs 01/21/25 04:24 01/21/25 04:24 Labs: Abnormal lab results 01/20/25 01/21/25 Range/Units 20:53 04:24 RBC 4.00 L 3.69 L (4.2-5.4) M/mm3 Hgb 11.2 L 10.3 L (12.0-15.0) g/dL Hct 34.1 L 31.8 L (37.0-47.0) % Immature Gran % (Auto) 0.9 H (0-0.5) % Abs Immat Gran (auto) 0.08 H (0.00-0.031) K/mm3 Absolute Neuts (auto) 6.8 H (1.3-6.7) K/mm3 PT 15.6 H (11.1-14.7) Seconds Sodium 136 L 135 L (137-145) mmol/L BUN 28 H 26 H (7-17) mg/dL Creatinine 1.17 H 1.04 H (0.7-1.0) mg/dL Estimated GFR 44 L 51 L (59 - ) Glucose 184 H 204 H (65-110) mg/dL H & H 01/20/25 01/21/25 Range/Units 20:53 04:24 Hgb 11.2 L 10.3 L (12.0-15.0) g/dL Hct 34.1 L 31.8 L (37.0-47.0) % Coagulation 01/21/25 Range/Units 04:24 INR 1.3 All other labs normal.
[2025-01-21] MEDS: HYDROcodone/acetaminophen (*CRX) 10-325 MG TABLET 1 TAB PO ×3 (13:36→22:18)
[2025-01-21] MEDS: INSULIN ASPART (*BKC) 100 UNITS/ML SUB-Q (17:43)
[2025-01-21 19:05] LABS: Add Urine Microscopic? YES; Appearance Urine Cloudy (Clear); Glucose Urine UA Negative (Negative); Leukocyte Esterase Ur 1+ LEU/UL (Negative); Need Manual Microscopic Reviewed; Nitrate Urine Negative (Negative); Specific Grav Ur 1.022 (1.001-1.035)
[2025-01-21] MEDS: PANTOPRAZOLE 40 MG TABLET PO (20:42)
[2025-01-22] VITALS (19 sets, daily range): BP systolic 135–180; BP diastolic 52–82; PULSE 53–111; RESP 14–22; TEMP 36.2–37.3; O2SAT 92–98
[2025-01-22] MEDS: HYDROcodone/acetaminophen (*CRX) 10-325 MG TABLET 1 TAB PO ×4 (03:35→16:12)
[2025-01-22 04:59] LABS: Hematocrit 33.5 % (37.0-47.0); Hemoglobin 10.4 g/dL (12.0-15.0); Mean Corpuscular HGB Conc 31.0 g/dl (32-36); Mean Corpuscular Hemoglobin 27.2 pg (26-34); Mean Corpuscular Volume 87.7 fl (80-100); Platelet Count Result 156 k/mm3 (150-375); Red Blood Count 3.82 M/mm3 (4.2-5.4); White Blood Count 8.0 K/mm3 (4.5-10.0)
[2025-01-22] MEDS: HYDROmorphone HCL INJ (*CRX) 1 MG/ML SYR 0.5 MG IV PUSH ×6 (05:09→22:49)
[2025-01-22 05:13] LABS: Alanine Aminotransferase 28 U/L (6-35); Albumin Level 3.7 g/dL (3.5-5.1); Alkaline Phosphatase 95 U/L (38-126); Anion Gap 4 mmol/L (4-12); Aspartate Amino Transferase 35 U/L (14-36); Bilirubin,Total 0.5 mg/dL (0.2-1.3); Blood Urea Nitrogen 27 mg/dL (7-17); Calcium 8.7 mg/dL (8.4-10.2); Carbon Dioxide 27 mmol/L (22-30); Chloride 104 mmol/L (98-107); Estimated CRCL calculation 35 ml/min; Estimated Glomerular Filt Rate 47; Glucose 191 mg/dL (65-110); Potassium 4.7 mmol/L (3.4-5.0); Sodium 135 mmol/L (137-145); Total Protein 6.6 g/dL (6.3-8.2)
--- NOTE | 2025-01-22 05:28 | ECG_ITS ---
Test Date: 2025-01-22 05:43:18 Measurements Intervals [place] Rate: 96 P: 49 CO: 172 QRS: 1 QRSD: 88 T: 70 QT: 367 QTc: 464 Interpretive Statements SINUS RHYTHM WITH OCCASIONAL VENTRICULAR PREMATURE COMPLEXES POSSIBLE LEFT ATRIAL ENLARGEMENT [-0.1mV P-WAVE IN V1/V2] POSSIBLE ANTERIOR MYOCARDIAL INFARCTION , OF INDETERMINATE AGE [30 ms Q WAVE IN V3/V4, OR R < 0.2 mV IN V4] LEFT VENTRICULAR HYPERTROPHY AND ST-T WAVE CHANGES Compared to ECG 01/20/2025 21:11:59 Ventricular premature complex(es) now present Myocardial infarct finding still present Electronically Signed On 01-22-2025 16:04:59 CDT by Abilio Barnett M.D.
[2025-01-22] MEDS: ONDANSETRON INJ 4 MG/2 ML VIAL IV PUSH ×3 (06:11→20:33)
--- NOTE | 2025-01-22 07:52 | WPDHPUPDATE1 ---
History and Physical Update Update Date/Time: 01/22/25 07:52 History and Physical has been reviewed, including an updated exam of the patient. There are NO changes in the patient's condition. Risks, benefits, and alternatives have been discussed and questions answered. Patient agrees to proceed with procedure.
--- NOTE | 2025-01-22 07:55 | P.PNIM_ITS ---
Progress Note: A&P Assessment and Plan (1) Fall from ground level: Code(s): W18.30XA - Fall on same level, unspecified, initial encounter Status: Acute Assessment and Plan: Mechanical ground level fall, denies head strike and LOC. Denies dizziness or lightheadedness prior to fall. Denies seizure like activity. Uses a walker and a cane at baseline - No signs of infection, WBC WNL and remains afebrile - Chest XR: Unremarkable - Hip/pelvis XR: Right femoral subcapital fracture - Pelvis CT: Minimally displaced right femoral subcapital fracture - Lumbar spine CT: severe lumbar spondylosis - See plan below for right femoral subcapital fracture (2) Closed subcapital fracture of neck of right femur: Qualifiers: Encounter type: initial encounter Qualified Code(s): S72.011A - Unspecified intracapsular fracture of right femur, initial encounter for closed fracture Code(s): S72.011A - Unspecified intracapsular fracture of right femur, initial encounter for closed fracture Status: Acute Assessment and Plan: Hip/pelvis XR: Right femoral subcapital fracture Pelvis CT: Minimally displaced right femoral subcapital fracture Analgesics: Tylenol, [place], Dilaudid p.r.n. Given narcotic use and prior hypoxia, patient to remain on continuous pulse ox and narcan PRN ordered for opioid reversal. DVT ppx: SCD and xarelto Diet: diabetic diet Incentive spirometer Carey in place for immobility, remove when appropriate PT/OT per ortho recommendations weight bearing as tolearted Ortho consulted s/p right hip pinning 01/[address] Page (3) Acute hypoxemic respiratory failure: Code(s): J96.01 - Acute respiratory failure with hypoxia Status: Acute Assessment and Plan: Patients oxygen saturations were stable on arrival however per chart review saturation dropped to 88% on room air after receiving fentanyl 50 mcg IV x1. Patient was placed on 2L NC at that time and saturations remain stable, wean as tolerated to maintain SpO2 > 90% Chest XR unremarkable on arrival, hypoxia likely related to narcotic use and the fact that patient states holding her breath when in pain Patient was also started on IV fluids which have since been discontinued given heart failure history, continue to monitor volume status Patient currently on 2L NC postoperatively with stable saturation. Wean as tolerated to maintain spo2> 90%. Patient denies shortness of breath. IS ordered. (4) Hypertension: Qualifiers: Hypertension type: unspecified Qualified Code(s): I10 - Essential (primary) hypertension Code(s): I10 - Essential (primary) hypertension Status: Acute Assessment and Plan: Chronic, continue home medication - carvedilol 50 mg BID - lasix and spironolactone on hold perioperatively, resume as appropriate - blood pressures stable, continue to monitor (5) Heart failure, type unknown: Code(s): I50.9 - Heart failure, unspecified Status: Acute Assessment and Plan: Chronic, does not appear in acute exacerbation Echo 11/02/2024: LVEF 60-65% with grade I diastolic dysfunction Monitor volume status Daily weights Monitor I/O (6) Insulin dependent diabetes mellitus: Status: Acute Assessment and Plan: - hypoglycemia protocol - POC blood glucose ACHS - home medication - ozempic 2 mg weekly, tresiba 36 units HS, lispro 8 units TIDWM - correct regimen ordered - SSI - A1C 9 on 10/31/24 Time Spent With Patient Time with patient: 25 - 35 minutes Subjective Date/time seen: 01/22/25 07:55 Interval history: 84-year-old female with past medical history of gout, anemia, osteoarthritis, GERD, CKD, hyperlipidemia, hypertension, insulin-dependent diabetes mellitus, and heart failure presents to the hospital with a ground level fall. Patient is pleasant lying comfortably in bed. She has just returned from surgery and is tired on exam not answering questions well but does follow commands. Returned to patients room and she is now AOx3. She continues to endorse pain to the right hip but denies any tingling/numbness/weakness. Patient remains on oxygen postoperatively but denies any shortness of breath. Oxygen supplementation to be weaned by nursing. Patient has no other complaints denying chest pain, palpitations, nausea/vomiting and abdominal pain. Review of Systems Review of Systems: All systems reviewed & are unremarkable except as noted in HPI and below Exam Narrative: AF HR 67 RR 18 Spo2 93 2L NC BP 150/59 General: female in no acute respiratory distress who is nontoxic appearing, lying semi recumbent in bed. HEENT: Normocephalic. Atraumatic. Extraocular movement intact. Sclera clear and anicteric. No facial asymmetry. Chest: Lungs are clear to auscultation bilaterally. No wheezes or crackles. CV: Heart was regular rate and rhythm. Abd: Abdomen was soft. Nontender. Nondistended. Positive bowel sounds. Ext: No clubbing, cyanosis, or edema. Swelling to the right hip with clean/dry/and intact surgical dressing. DP pulses bilaterally. Sensation intact. Wiggling toes. Neuro: Patient is alert and oriented x4. Speech is clear. Objective Data Vital Signs Vital Signs: Vital Signs - 24 hr 01/21/25 08:00 01/21/25 08:00 01/21/25 08:00 Temperature 98.2 F Pulse Rate 100 97 Respiratory Rate 20 Blood Pressure 143/60 H Pulse Oximetry 91 93 Oxygen Delivery Room Air Oxygen Flow Rate Fraction of Inspired Oxygen 01/21/25 08:23 01/21/25 12:00 01/21/25 12:00 Temperature 98.4 F Pulse Rate 97 94 88 Respiratory Rate 20 Blood Pressure 138/64 Pulse Oximetry 96 Oxygen Delivery Oxygen Flow Rate Fraction of Inspired Oxygen 01/21/25 13:50 01/21/25 14:00 01/21/25 16:00 Temperature 98.5 F Pulse Rate 97 84 101 H Respiratory Rate 24 H 18 Blood Pressure 132/66 Pulse Oximetry 95 98 Oxygen Delivery Room Air Oxygen Flow Rate Fraction of Inspired Oxygen 21 01/21/25 20:00 01/21/25 20:18 01/21/25 20:39 Temperature 99.5 F Pulse Rate 106 H 102 H Respiratory Rate 16 Blood Pressure 175/86 H Pulse Oximetry 98 98 Oxygen Delivery Nasal Cannula Oxygen Flow Rate 2 Fraction of Inspired Oxygen 01/21/25 20:41 01/21/25 23:37 01/22/25 00:00 Temperature 97.7 F Pulse Rate 102 H 100 98 Respiratory Rate 20 Blood Pressure 147/58 H Pulse Oximetry 97 Oxygen Delivery Oxygen Flow Rate Fraction of Inspired Oxygen 01/22/25 03:32 01/22/25 04:00 Temperature 97.2 F L Pulse Rate 96 97 Respiratory Rate 20 Blood Pressure 165/57 H Pulse Oximetry 98 Oxygen Delivery Oxygen Flow Rate Fraction of Inspired Oxygen Intake/Output Intake/Output: Intake & Output 01/19/25 01/20/25 01/21/25 01/22/25 23:59 23:59 23:59 23:59 Intake Total 1660 110 Output Total 900 250 Balance 760 -140 Meds/Results Medications: Active Medications Generic Name Dose Route Start Last Admin Trade Name Blaineq PRN Reason Stop Dose Admin Acetaminophen 500 mg 01/20/25 22:19 Acetaminophen 500 Mg Tablet PO Q6H PRN Mild Pain (1-3) or Fever Hydrocodone Bitart/Acetaminophen 1 tab 01/20/25 22:19 01/22/25 07:16 Hydrocodone/Acetaminophen (*Crx) 10-325 Mg Tablet PO 1 tab Q4H PRN Administration Pain Rated 4-6 Carvedilol 50 mg 01/21/25 09:00 01/21/25 20:41 Carvedilol 25 Mg Tablet PO 50 mg Q12HR KADEN Administration Dextrose 12.5 gm 01/21/25 00:35 Dextrose 50% 25 Gm/50 Ml Syringe IV PUSH PRN PRN Hypoglycemia Protocol Glucose 15 gm 01/21/25 00:35 Glucose Oral Gel 15 Gm Of Glucse In 37.5 Gm Tube PO PRN PRN Hypoglycemia Protocol Hydromorphone HCl 0.5 mg 01/21/25 14:52 01/22/25 07:17 Hydromorphone Hcl Inj (*Crx) 1 Mg/Ml Syr IV PUSH 0.5 mg Q2H PRN Administration Pain Rated 7-10 Dextrose 1,000 mls @ 100 mls/hr 01/21/25 00:35 Dextrose 5% 1,000 Ml IVPB PRN PRN Hypoglycemia Protocol Insulin Aspart 2 - 5 units 01/21/25 06:00 01/22/25 05:04 Insulin Aspart (*Bkc) 100 Units/Ml SUB-Q Not Given Q6HR [facility] Protocol Melatonin 10 mg 01/21/25 00:34 01/21/25 20:41 Melatonin 5 Mg Tablet PO 10 mg HS PRN Administration Sleep Naloxone HCl 0.1 mg 01/21/25 14:51 Naloxone Hcl 0.4 Mg/Ml Vial IV PUSH Q5MIN PRN Opioid Reversal Ondansetron HCl 4 mg 01/22/25 05:54 01/22/25 06:11 Ondansetron Inj 4 Mg/2 Ml Vial IV PUSH 4 mg Q6H PRN Administration Nausea And Vomiting Pantoprazole Sodium 40 mg 01/21/25 21:00 01/21/25 20:42 Pantoprazole 40 Mg Tablet PO 40 mg HS KADEN Administration Sertraline HCl 100 mg 01/21/25 00:50 01/21/25 20:42 Sertraline Hcl 50 Mg Tablet PO 100 mg HS KADEN Administration Radiology Results: ITS Impressions Lumbar Spine CT 01/20/25 19:50 IMPRESSION: 1. No acute abnormality of the cervical spine. 2: Severe lumbar spondylosis. Pelvis CT 01/20/25 19:53 IMPRESSION: 1. Minimally displaced right femoral subcapital fracture. Hip/Pelvis X-Ray 01/20/25 20:36 Impression: 1: Right femoral subcapital fracture. Chest X-Ray 01/20/25 20:37 IMPRESSION: 1: NO ACUTE CARDIOPULMONARY DISEASE. Labs Labs: Laboratory Results - last 24 hr 01/21/25 01/21/25 01/21/25 05:05 08:09 11:56 WBC RBC Hgb Hct MCV MCH MCHC RDW Plt Count MPV Sodium Potassium Chloride Carbon Dioxide Anion Gap BUN Creatinine Estim Creat Clear Calc Estimated GFR Glucose POC Capillary Glucose 197 H 182 H 166 H Calcium Total Bilirubin AST ALT Alkaline Phosphatase Total Protein Albumin Urine Color Urine Appearance Urine pH Ur Specific [place] Urine Protein Urine Glucose (UA) Urine Ketones Ur Blood (Man) Urine Nitrate Urine Bilirubin Urine Urobilinogen Add Ur Microanalysis Leukocyte Esterase Rfl Urine RBC Urine WBC Ur Squamous Epith Cells Urine Bacteria Urine Casts Hyaline Casts Urine Mucus 01/21/25 01/21/25 01/21/25 17:38 18:00 20:36 WBC RBC Hgb Hct MCV MCH MCHC RDW Plt Count MPV Sodium Potassium Chloride Carbon Dioxide Anion Gap BUN Creatinine Estim Creat Clear Calc Estimated GFR Glucose POC Capillary Glucose 239 H 183 H Calcium Total Bilirubin AST ALT Alkaline Phosphatase Total Protein Albumin Urine Color Yellow Urine Appearance Cloudy H Urine pH 5.5 Ur Specific [place] 1.022 Urine Protein 1+ H Urine Glucose (UA) Negative Urine Ketones Negative Ur Blood (Man) 1+ H Urine Nitrate Negative Urine Bilirubin Negative Urine Urobilinogen 0.2 Add Ur Microanalysis Reviewed Leukocyte Esterase Rfl 1+ H Urine RBC 0-2 Urine WBC 11-20 H Ur Squamous Epith Cells Moderate Urine Bacteria None seen Urine Casts 6-10 Hyaline Casts Present Urine Mucus Present 01/22/25 01/22/25 01/22/25 00:09 04:23 05:02 WBC 8.0 RBC 3.82 L Hgb 10.4 L Hct 33.5 L MCV 87.7 MCH 27.2 MCHC 31.0 L RDW 14.0 Plt Count 156 MPV 9.7 Sodium 135 L Potassium 4.7 Chloride 104 Carbon Dioxide 27 Anion Gap 4 BUN 27 H Creatinine 1.10 H Estim Creat Clear Calc 35 Estimated GFR 47 L Glucose 191 H POC Capillary Glucose 181 H 186 H Calcium 8.7 Total Bilirubin 0.5 AST 35 ALT 28 Alkaline Phosphatase 95 Total Protein 6.6 Albumin 3.7 Urine Color Urine Appearance Urine pH Ur Specific [place] Urine Protein Urine Glucose (UA) Urine Ketones Ur Blood (Man) Urine Nitrate Urine Bilirubin Urine Urobilinogen Add Ur Microanalysis Leukocyte Esterase Rfl Urine RBC Urine WBC Ur Squamous Epith Cells Urine Bacteria Urine Casts Hyaline Casts Urine Mucus Quality VTE Prophylaxis VTE prophylaxis: pharmacologic ordered
--- NOTE | 2025-01-22 08:05 | WPDANESEPPF ---
Anes - Initial Pre Proc Eval Procedure: Operation Date: 01/22/25 08:00 Proposed Procedures p Hip Pinning Cannulated Screws(Right) - Rick Page MD Date/Time: 01/22/25 08:05 Surgeon: Shannan Hector MD Pre Op Diagnosis: right hip fracture Patient Data Age: 84 Gender: F Height: 1.63 m Weight: 76.3 kg Last Vital Signs Temp 36.2 C L 01/22/25 03:32 Pulse 97 01/22/25 04:00 Resp 20 01/22/25 03:32 BP 165/57 H 01/22/25 03:32 Pulse Ox 98 01/22/25 03:32 O2 Del Method Nasal Cannula 01/21/25 20:18 O2 Flow Rate 2 01/21/25 20:18 FiO2 21 01/21/25 13:50 Allergies Allergy/AdvReac Type Severity Reaction Status Date / Time codeine Allergy Mild Unknown Verified 01/20/25 18:04 Penicillins Allergy Mild Unknown Verified 01/20/25 18:04 latex Allergy Rash Verified 01/20/25 18:04 morphine Allergy Hives Verified 01/20/25 18:04 shrimp Allergy Swelling Verified 01/20/25 18:04 amlodipine (From [facility]) AdvReac Mild Unknown Verified 01/20/25 18:04 atorvastatin AdvReac Mild Unknown Verified 01/20/25 18:04 erythromycin base AdvReac Mild Unknown Verified 01/20/25 18:04 Home Medications ?Medication ?Instructions ?Recorded ?Confirmed ?Type clonidine HCl 0.2 mg tablet 0.2 mg PO Q12H 05/04/23 01/20/25 History semaglutide 1 mg/dose (4 mg/3 mL) 2 mg subcut WEEKLY 05/04/23 01/20/25 History subcutaneous pen injector (Ozempic) sertraline 50 mg tablet 100 mg PO HS 05/04/23 01/20/25 History simvastatin 10 mg tablet 20 mg PO DAILY 05/04/23 01/20/25 History spironolactone 25 mg tablet 25 mg PO DAILY 05/04/23 01/20/25 History carvedilol 25 mg tablet (Coreg) 50 mg PO .Q12HR 10/31/24 01/20/25 History cholecalciferol (vitamin D3) 1,250 1,250 mcg PO .biweekly 10/31/24 01/20/25 History mcg (50,000 unit) capsule hydrocodone 5 mg-acetaminophen 325 1 tablet PO Q12H 10/31/24 01/20/25 History mg tablet melatonin 10 mg capsule 10 mg PO HS PRN sleep 10/31/24 01/20/25 History omeprazole 20 mg capsule,delayed 20 mg PO HS 10/31/24 01/20/25 History release terazosin 2 mg capsule 2 mg PO HS 10/31/24 01/20/25 History allopurinol 100 mg tablet 50 mg PO DAILY 12/16/24 01/20/25 History gabapentin 300 mg capsule 300 mg PO TID 12/16/24 01/20/25 History ropinirole 0.25 mg tablet 0.25 mg PO HS 12/16/24 01/20/25 History diphenhydramine HCl 25 mg capsule 50 mg (2 x 25 mg) PO HS PRN 12/19/24 01/20/25 Rx (Banophen) Insomnia #1 cap insulin degludec 200 unit/mL (3 36 unit (0.18 mL) subcut HS #1 mL 12/19/24 01/20/25 Rx mL) subcutaneous pen (Tresiba FlexTouch U-200 insulin) insulin lispro 100 unit/mL 8 unit (0.08 mL) subcut TIDWM #15 12/19/24 01/20/25 Rx subcutaneous cartridge (Humalog mL U-100 Insulin) furosemide 20 mg tablet (Lasix) 20 mg PO QAM #90 tabs 01/17/25 01/20/25 Rx ferrous sulfate 325 mg (65 mg 325 mg PO DAILY 01/20/25 01/20/25 History iron) tablet (FeroSul) Laboratory Tests 01/21/25 01/21/25 01/21/25 05:05 08:09 11:56 WBC RBC Hgb Hct MCV MCH MCHC RDW Plt Count MPV Sodium Potassium Chloride Carbon Dioxide Anion Gap BUN Creatinine Estim Creat Clear Calc Estimated GFR Glucose POC Capillary Glucose 197 H mg/dl 182 H mg/dl 166 H mg/dl (65-105) (65-105) (65-105) Calcium Total Bilirubin AST ALT Alkaline Phosphatase Total Protein Albumin Urine Color Urine Appearance Urine pH Ur Specific [place] Urine Protein Urine Glucose (UA) Urine Ketones Ur Blood (Man) Urine Nitrate Urine Bilirubin Urine Urobilinogen Add Ur Microanalysis Leukocyte Esterase Rfl Urine RBC Urine WBC Ur Squamous Epith Cells Urine Bacteria Urine Casts Hyaline Casts Urine Mucus 01/21/25 01/21/25 01/21/25 17:38 18:00 20:36 WBC RBC Hgb Hct MCV MCH MCHC RDW Plt Count MPV Sodium Potassium Chloride Carbon Dioxide Anion Gap BUN Creatinine Estim Creat Clear Calc Estimated GFR Glucose POC Capillary Glucose 239 H mg/dl 183 H mg/dl (65-105) (65-105) Calcium Total Bilirubin AST ALT Alkaline Phosphatase Total Protein Albumin Urine Color Yellow (Yellow) Urine Appearance Cloudy H (Clear) Urine pH 5.5 (5.0-9.0) Ur Specific [place] 1.022 (1.001-1.035) Urine Protein 1+ H mg/dL (Negative) Urine Glucose (UA) Negative mg/dL (Negative) Urine Ketones Negative mg/dL (Negative) Ur Blood (Man) 1+ H (Negative) Urine Nitrate Negative (Negative) Urine Bilirubin Negative (Negative) Urine Urobilinogen 0.2 mg/dL (<2.0) Add Ur Microanalysis Reviewed Leukocyte Esterase Rfl 1+ H EDUARDO/UL (Negative) Urine RBC 0-2 /hpf (0-2) Urine WBC 11-20 H /hpf (0-3) Ur Squamous Epith Cells Moderate /hpf (Few) Urine Bacteria None seen /hpf Urine Casts 6-10 Hyaline Casts Present /lpf (None) Urine Mucus Present /lpf 01/22/25 01/22/25 01/22/25 00:09 04:23 05:02 WBC 8.0 K/mm3 (4.5-10.0) RBC 3.82 L M/mm3 (4.2-5.4) Hgb 10.4 L g/dL (12.0-15.0) Hct 33.5 L % (37.0-47.0) MCV 87.7 fl (80-100) MCH 27.2 pg (26-34) MCHC 31.0 L g/dl (32-36) RDW 14.0 % (11.5-14.5) Plt Count 156 k/mm3 (150-375) MPV 9.7 fl (7.4-10.4) Sodium 135 L mmol/L (137-145) Potassium 4.7 mmol/L (3.4-5.0) Chloride 104 mmol/L (98-107) Carbon Dioxide 27 mmol/L (22-30) Anion Gap 4 mmol/L (4-12) BUN 27 H mg/dL (7-17) Creatinine 1.10 H mg/dL (0.7-1.0) Estim Creat Clear Calc 35 ml/min Estimated GFR 47 L (59 - ) Glucose 191 H mg/dL (65-110) POC Capillary Glucose 181 H mg/dl 186 H mg/dl (65-105) (65-105) Calcium 8.7 mg/dL (8.4-10.2) Total Bilirubin 0.5 mg/dL (0.2-1.3) AST 35 U/L (14-36) ALT 28 U/L (6-35) Alkaline Phosphatase 95 U/L (38-126) Total Protein 6.6 g/dL (6.3-8.2) Albumin 3.7 g/dL (3.5-5.1) Urine Color Urine Appearance Urine pH Ur Specific [place] Urine Protein Urine Glucose (UA) Urine Ketones Ur Blood (Man) Urine Nitrate Urine Bilirubin Urine Urobilinogen Add Ur Microanalysis Leukocyte Esterase Rfl Urine RBC Urine WBC Ur Squamous Epith Cells Urine Bacteria Urine Casts Hyaline Casts Urine Mucus Patient hx anesthesia problems: none Family hx anesthesia problems: none Results Review: All pre-operative results and documents have been reviewed as part of the pre-operative evaluation. [facility] Past Medical History Medical History Chronic back pain Gout Compression fracture Basal cell carcinoma of skin Anemia Osteoarthritis Gastroesophageal reflux disease Chronic kidney disease, stage 3b Hyperlipidemia Hypertension Insulin dependent diabetes mellitus Heart failure, type unknown Cerebrovascular accident residual right sided weakness Gout Surgical History Surgical History Status post insertion of spinal cord stimulator Family History Family History Daughter Cancer Mother Diabetes mellitus Sibling Diabetes mellitus Social History Social History Social History: Surrogate medical decision maker: Paige Goncalves, daughter. Code status: Full code. Smoking status: Never smoker Alcohol intake: current Drinks per week: 1 Substance use: never Substance use type: marijuana Other substance usage details: dtr grows marijuana, intake variety of routes Last use: 2-3 months ago Do You Feel Safe in your Home?: Yes Lack of Transportation: No Lack of Food: Never True Current Housing: I Have Housing Concerned About Future Housing: No Difficulty Paying Gas/Electric Bills: No Difficulty Paying for Meds: No Currently Unemployed: No Education: High School Diploma/GED Difficulty w/ Childcare or Family Care: No Living arrangements: assisted living Occupation/Education: retired Spiritual care concerns: No Anes - Eval Final PreProcedure Day of Procedure 01/22/25 08:05 Patient weight: overweight Heart: regular rate and rhythm Lungs: decreased breath sounds Airway: Mallampati scale class II Neurological: alert and oriented Last oral intake: >/= 8 hours ASA classification: IV Emergent: no Anesthetic plan: proceed Anesthesia type and monitoring: general LMA and standard monitoring Results Review: All pre-operative results and documents have been reviewed as part of the pre-operative evaluation. Informed Consent: The patient's anesthetic plan and its attendant risks and benefits were discussed with the patient/family/POA. Questions were solicited and answers provided to the satisfaction of the patient/family/POA.
[2025-01-22] MEDS: ceFAZolin 2 GM in SODIUM CHLORIDE 0.9% IV 50 ML 100 ML IVPB ×3 (08:10→23:58)
[2025-01-22] MEDS: TRANEXAMIC ACID 1,000MG/ISO100 1,000 MG/100 ML BAG 200 MG IVPB (08:20)
[2025-01-22] MEDS: BUPIVACAINE/EPINEPHRINE 0.5% 50 ML VIAL 10 ML INFILTRATE (08:45)
[2025-01-22] MEDS: LACTATED RINGERS 1,000 ML 30 ML IV CONT (09:10)
--- NOTE | 2025-01-22 09:14 | W.PM.PROC2 ---
Procedure Note - Detailed Date of Procedure 01/22/25 Pre-op Diagnosis right hip femoral neck fracture Post-op Diagnosis Same Procedure Performed Right hip pinning Surgeon Rick Page MD Geometry Teacher 1st litigation assistant Anesthesia General Indications 84-year-old intermediate resident lost her balance and fell onto her right side sustaining right hip femoral neck fracture. Patient and family desire operative treatment. Description of Procedure Informed consent signed. Extremity marked in preoperative holding area. Patient received intravenous antibiotics. Brought to operating room and underwent general anesthetic by the Anesthesia Team. Positioned supine on the fracture table. Right leg placed into longitudinal traction. Left leg extended out of field. Image intensification brought in and confirm reduction of fracture. Right hip prepped and draped in usual sterile surgical fashion using ChloraPrep skin solution. Image intensification used to guide the starting position and a longitudinal incision made with 10 blade knife over the lateral proximal femur. Blunt dissection carried down to the lateral femur. Bleeding controlled with electrocautery. First guide pin placed in the inferior center position of the femoral neck and head. Confirmed with image intensification. Two subsequent pins placed superior and anterior and superior and posterior to the 1st pin to create an inverted triangle type pattern. Pins confirmed with image intensification. Length of screw measured, reaming performed. Appropriate size screw placed with good compression and fixation noted for all 3 pins. Guide pins removed. Final image intensification confirmed reduction of fracture and placement of hardware. Wound thoroughly irrigated with antibiotic solution. Fascia repaired with 2 Vicryl interrupted sutures. Subcutaneous tissue repaired with 3 0 Monocryl interrupted suture and 3-0 Monocryl running subcuticular stitch. Skin approximated with Dermabond. Sterile dressing applied. Patient woken from anesthesia, extubated and returned to recovery room in stable condition. All sponge needle and instrument counts correct at the end of the case. Implants Arthrex 7mm cannulated screws X 3. 75, 75, 70mm length Estimated Blood Loss 5 Drains No Packing No Pathology None sent Complications None Condition Stable Disposition PACU [facility] Billing Surgery - Charge Forward: Surgery Billing ([id number])
[2025-01-22] MEDS: fentaNYL CITRATE INJ (*CRX) 100 MCG/2 ML VIAL 25 MCG IV PUSH (09:33)
[2025-01-22] MEDS: SODIUM CHLORIDE 0.9% IV 1,000 ML 75 ML IV CONT ×2 (10:22→23:57)
--- NOTE | 2025-01-22 11:16 | PC.NURSE ---
OT asked if they could work with patient. Patient is feeling nauseous, woozy, and is disoriented. RN advised to possibly come back later.
--- NOTE | 2025-01-22 11:17 | PCOTNOTE ---
Attempted OT evaluation. Per RN pt. is having a hard time waking up from anaesthesia and requests to hold for this AM. Will continue to follow and attempt again as able.
[2025-01-22] MEDS: GABAPENTIN 300 MG CAPSULE PO ×2 (11:50→16:12)
[2025-01-22] MEDS: INSULIN ASPART (*BKC) 100 UNITS/ML SUB-Q (11:51)
--- NOTE | 2025-01-22 11:51 | PCPTNOTE ---
Attempted to see at 1147 and YAZAN Hampton, reports patient not appropriate at this time and would probably be better to wait until tomorrow to see secondary to delayed waking up from anesthesia.
--- NOTE | 2025-01-22 14:37 | PC.NURSE ---
Patient is oriented, but being very strange and acting very jumpy and saying random things. Patient also tore out her IV and was very hard to get to sit still for charge loader to place another.
[2025-01-22] MEDS: RIVAROXABAN 10 MG TABLET PO (16:12)
[2025-01-22] MEDS: SENNA/DOCUSATE SODIUM TABLET 2 TAB PO (16:12)
[2025-01-22] MEDS: MELATONIN 5 MG TABLET 10 MG PO (20:27)
[2025-01-22] MEDS: SERTRALINE HCL 50 MG TABLET 100 MG PO (20:27)
[2025-01-22] MEDS: PANTOPRAZOLE 40 MG TABLET PO (20:27)
[2025-01-23] VITALS (12 sets, daily range): BP systolic 137–178; BP diastolic 64–92; PULSE 84–108; RESP 16–20; TEMP 36.2–37.2; O2SAT 91–99; BMI 11.0
[2025-01-23] MEDS: HYDROcodone/acetaminophen (*CRX) 10-325 MG TABLET 1 TAB PO ×5 (00:11→22:25)
[2025-01-23] MEDS: HYDROmorphone HCL INJ (*CRX) 1 MG/ML SYR 0.5 MG IV PUSH (03:26)
[2025-01-23 04:49] LABS: Hematocrit 32.1 % (37.0-47.0); Hemoglobin 10.1 g/dL (12.0-15.0); Immature Granulocyte Percent A 0.6 % (0-0.5); Lymphocytes Absolute Auto 1.10 K/mm3 (0.9-3.2); Mean Corpuscular HGB Conc 31.5 g/dl (32-36); Mean Corpuscular Hemoglobin 28.1 pg (26-34); Mean Corpuscular Volume 89.4 fl (80-100); Nucleated Red Blood Cells Absolute Auto 0.000 K/mm3 (0.0-0.012); Nucleated Red Blood Cells Perc 0.0 % (0.0-0.2); Platelet Count Result 152 k/mm3 (150-375); Red Blood Count 3.59 M/mm3 (4.2-5.4); White Blood Count 10.5 K/mm3 (4.5-10.0)
[2025-01-23 05:09] LABS: Alanine Aminotransferase 55 U/L (6-35); Albumin Level 3.5 g/dL (3.5-5.1); Alkaline Phosphatase 142 U/L (38-126); Anion Gap 6 mmol/L (4-12); Aspartate Amino Transferase 55 U/L (14-36); Bilirubin,Total 0.4 mg/dL (0.2-1.3); Blood Urea Nitrogen 32 mg/dL (7-17); Calcium 8.4 mg/dL (8.4-10.2); Carbon Dioxide 25 mmol/L (22-30); Chloride 106 mmol/L (98-107); Estimated CRCL calculation 35 ml/min; Estimated Glomerular Filt Rate 47; Glucose 213 mg/dL (65-110); Potassium 4.5 mmol/L (3.4-5.0); Sodium 137 mmol/L (137-145); Total Protein 6.4 g/dL (6.3-8.2)
--- NOTE | 2025-01-23 06:54 | P.PNIM_ITS ---
Progress Note: A&P Assessment and Plan (1) Fall from ground level: Code(s): W18.30XA - Fall on same level, unspecified, initial encounter Status: Acute Assessment and Plan: Mechanical ground level fall, denies head strike and LOC. Denies dizziness or lightheadedness prior to fall. Denies seizure like activity. Uses a walker and a cane at baseline - No signs of infection, WBC WNL and remains afebrile - Chest XR: Unremarkable - Hip/pelvis XR: Right femoral subcapital fracture - Pelvis CT: Minimally displaced right femoral subcapital fracture - Lumbar spine CT: severe lumbar spondylosis - See plan below for right femoral subcapital fracture (2) Closed subcapital fracture of neck of right femur: Qualifiers: Encounter type: initial encounter Qualified Code(s): S72.011A - Unspecified intracapsular fracture of right femur, initial encounter for closed fracture Code(s): S72.011A - Unspecified intracapsular fracture of right femur, initial encounter for closed fracture Status: Acute Assessment and Plan: Hip/pelvis XR: Right femoral subcapital fracture Pelvis CT: Minimally displaced right femoral subcapital fracture Analgesics: Tylenol, [place], Dilaudid p.r.n. Given narcotic use and prior hypoxia, patient to remain on continuous pulse ox and narcan PRN ordered for opioid reversal. DVT ppx: SCD and xarelto Diet: diabetic diet Incentive spirometer Carey in place for immobility, remove when appropriate PT/OT per ortho recommendations weight bearing as tolearted Ortho consulted s/p right hip pinning 01/[address] Page attempt to mobilize with therapy (3) Acute hypoxemic respiratory failure: Code(s): J96.01 - Acute respiratory failure with hypoxia Status: Acute Assessment and Plan: Patients oxygen saturations were stable on arrival however per chart review satu ration dropped to 88% on room air after receiving fentanyl 50 mcg IV x1. Patient was placed on 2L NC at that time and saturations remain stable, wean as tolerated to maintain SpO2 > 90% Chest XR unremarkable on arrival, hypoxia likely related to narcotic use and the fact that patient states holding her breath when in pain Patient was also started on IV fluids which have since been discontinued given heart failure history, continue to monitor volume status Resolved. Patient on room air with stable saturations. Continue pulse ox given narcotic use. (4) Hypertension: Qualifiers: Hypertension type: unspecified Qualified Code(s): I10 - Essential (primary) hypertension Code(s): I10 - Essential (primary) hypertension Status: Acute Assessment and Plan: Chronic, continue home medication - carvedilol 50 mg BID - clonidine 0.2 mg BID - lasix 20 mg daily - spironolactone 25 mg daily - continue to monitor (5) Heart failure, type unknown: Code(s): I50.9 - Heart failure, unspecified Status: Acute Assessment and Plan: Chronic, does not appear in acute exacerbation Echo 11/02/2024: LVEF 60-65% with grade I diastolic dysfunction Monitor volume status Daily weights Monitor I/O Remains euvolemic on exam. (6) Insulin dependent diabetes mellitus: Status: Acute Assessment and Plan: - hypoglycemia protocol - POC blood glucose ACHS - home medication - ozempic 2 mg weekly, tresiba 36 units HS, lispro 8 units TIDWM - correct regimen ordered - SSI - A1C 9 on 10/31/24 Time Spent With Patient Time with patient: 25 - 35 minutes Subjective Date/time seen: 01/23/25 06:54 Interval history: 84-year-old female with past medical history of gout, anemia, osteoarthritis, GERD, CKD, hyperlipidemia, hypertension, insulin-dependent diabetes mellitus, and heart failure presents to the hospital with a ground level fall. Received phone call from patients RN stating that the patient is now refusing al l medications and has removed her oxygen and tele monitor. Reported to patients room and patient is AOx4 (person, place, month/year, and what led to the hospitalization) on assessment. Patient states she does not want any more medications or treatment. Checked patients oxygen levels and patient would intermittently drop to 88-89 before returning to the low to mid 90s. Discussed with patient that she is intermittently dropping and she would benefit from oxygen at this point to which she again refused. Informed patient that if her oxygen continues to desaturate she could start having difficulties breathing and eventually due to complications as patient is a DNR. She states understanding and continues to refuse the oxygen supplementation and medications. Attempted to ask patient why she is now refusing her oxygen and medications to which she responds Just shut up and leave me alone. Patient has no complaints denying chest pain, palpitations, shortness of breath, nausea/vomiting and abdominal pain. When asked about pain to the right hip she says I think you know to which I replied if she has pain she needs to inform the RN for pain medication to be administered. She again refuses the need for medications. Ortho recommending psych consult since patient is refusing all treatment. Per RN patients daughter is faxing over prior records of patient discussing hospice and palliative. Again patient is AOx4 with each assessment. Returned to patients room to discuss possible hospice consult if she is no longer wishing for treatment. Upon return patient is again AOx4. She is now wishing to resume treatment. She states she is agreeable to taking her medications, working with therapy, and using oxygen supplementation if necessary. Review of Systems Review of Systems: All systems reviewed & are unremarkable except as noted in HPI and below Exam Narrative: AF HR 84 RR 16 SpO2 95 BP 178/92 (prior to receiving antihypertensives which patient now agreeable to) General: female in no acute respiratory distress who is nontoxic appearing, lying semi recumbent in bed. HEENT: Normocephalic. Atraumatic. Extraocular movement intact. Sclera clear and anicteric. No facial asymmetry. Chest: Lungs are clear to auscultation bilaterally. CV: Heart was regular rate and rhythm. Abd: Abdomen was soft. Nontender. Nondistended. Positive bowel sounds. Ext: No clubbing, cyanosis, or edema. Slight swelling to the right hip with clean/dry/and intact dressing. DP pulses bilaterally. Sensation intact. Wiggling toes. Neuro: Patient is alert and oriented x4. Speech is clear. Objective Data Vital Signs Vital Signs: Vital Signs - 24 hr 01/22/25 08:00 01/22/25 09:10 01/22/25 09:25 Temperature 99.2 F Pulse Rate 95 71 53 L Respiratory Rate 16 16 Blood Pressure 157/82 H 177/52 H Pulse Oximetry 95 95 Oxygen Delivery Simple Face Mask Nasal Cannula Oxygen Flow Rate 8 2 01/22/25 09:40 01/22/25 09:55 01/22/25 10:59 Temperature 98.4 F Pulse Rate 83 53 L 53 L Respiratory Rate 22 H 17 18 Blood Pressure 166/61 H 172/68 H 135/80 Pulse Oximetry 95 94 97 Oxygen Delivery Nasal Cannula Nasal Cannula Oxygen Flow Rate 2 2 01/22/25 11:45 01/22/25 12:00 01/22/25 16:00 Temperature 98.0 F Pulse Rate 67 74 59 L Respiratory Rate 18 Blood Pressure 150/59 H Pulse Oximetry 93 Oxygen Delivery Oxygen Flow Rate 01/22/25 17:05 01/22/25 18:16 01/22/25 18:38 Temperature 98.2 F Pulse Rate 88 103 H Respiratory Rate 14 Blood Pressure 180/82 H 172/65 H Pulse Oximetry 96 Oxygen Delivery Oxygen Flow Rate 01/22/25 20:00 01/22/25 20:03 01/22/25 20:09 Temperature 98.1 F Pulse Rate 111 H 109 H Respiratory Rate 20 Blood Pressure 173/71 H Pulse Oximetry 92 94 Oxygen Delivery Nasal Cannula Oxygen Flow Rate 2 01/22/25 20:15 01/23/25 00:00 01/23/25 00:02 Temperature 97.2 F L Pulse Rate 95 106 H Respiratory Rate 18 Blood Pressure 159/72 H Pulse Oximetry 92 91 Oxygen Delivery Nasal Cannula Oxygen Flow Rate 3 01/23/25 03:19 01/23/25 04:00 Temperature 97.6 F Pulse Rate 98 99 Respiratory Rate 20 Blood Pressure 162/70 H Pulse Oximetry 99 Oxygen Delivery Oxygen Flow Rate Intake/Output Intake/Output: Intake & Output 01/20/25 01/21/25 01/22/25 01/23/25 23:59 23:59 23:59 23:59 Intake Total 1660 1360 100 Output Total 900 650 450 Balance 760 710 -350 Meds/Results Medications: Active Medications Generic Name Dose Route Start Last Admin Trade Name Freq PRN Reason Stop Dose Admin Acetaminophen 500 mg 01/20/25 22:19 Acetaminophen 500 Mg Tablet PO Q6H PRN Mild Pain (1-3) or Fever Hydrocodone Bitart/Acetaminophen 1 tab 01/20/25 22:19 01/23/25 04:58 Hydrocodone/Acetaminophen (*Crx) 10-325 Mg Tablet PO 1 tab Q4H PRN Administration Pain Rated 4-6 Carvedilol 50 mg 01/21/25 09:00 01/22/25 18:38 Carvedilol 25 Mg Tablet PO 50 mg Q12HR KADEN Administration Dextrose 12.5 gm 01/21/25 00:35 Dextrose 50% 25 Gm/50 Ml Syringe IV PUSH PRN PRN Hypoglycemia Protocol Furosemide 20 mg 01/23/25 09:00 Furosemide 20 Mg Tablet PO QAM KADEN Gabapentin 300 mg 01/22/25 13:00 01/22/25 16:12 Gabapentin 300 Mg Capsule PO 300 mg TID KADEN Administration Glucose 15 gm 01/21/25 00:35 Glucose Oral Gel 15 Gm Of Glucse In 37.5 Gm Tube PO PRN PRN Hypoglycemia Protocol Hydromorphone HCl 0.5 mg 01/21/25 14:52 01/23/25 03:26 Hydromorphone Hcl Inj (*Crx) 1 Mg/Ml Syr IV PUSH 0.5 mg Q2H PRN Administration Pain Rated 7-10 Hydroxyzine HCl 50 mg 01/22/25 10:00 Hydroxyzine Hcl 50 Mg/Ml Vial IM Q4H PRN Itching Dextrose 1,000 mls @ 100 mls/hr 01/21/25 00:35 Dextrose 5% 1,000 Ml IVPB PRN PRN Hypoglycemia Protocol Cefazolin Sodium 2 gm/ Sodium 50 mls @ 100 mls/hr 01/22/25 16:00 01/23/25 00:28 Chloride IVPB 01/23/25 08:29 Infused Q8H KADEN Infusion Sodium Chloride 1,000 mls @ 75 mls/hr 01/22/25 10:00 01/22/25 23:57 Normal Saline Iv IV CONT 75 mls/hr .[id number] KADEN Administration Insulin Aspart 2 - 5 units 01/21/25 06:00 01/23/25 05:41 Insulin Aspart (*Bkc) 100 Units/Ml SUB-Q Not Given Q6HR [facility] Protocol Melatonin 10 mg 01/21/25 00:34 01/22/25 20:27 Melatonin 5 Mg Tablet PO 10 mg HS PRN Administration Sleep Naloxone HCl 0.1 mg 01/21/25 14:51 Naloxone Hcl 0.4 Mg/Ml Vial IV PUSH Q5MIN PRN Opioid Reversal Naloxone HCl 0.1 mg 01/22/25 10:00 Naloxone Hcl 0.4 Mg/Ml Vial IV PUSH Q2M PRN Opiate Reversal Ondansetron HCl 4 mg 01/22/25 05:54 01/22/25 20:33 Ondansetron Inj 4 Mg/2 Ml Vial IV PUSH 4 mg Q6H PRN Administration Nausea And Vomiting Pantoprazole Sodium 40 mg 01/21/25 21:00 01/22/25 20:27 Pantoprazole 40 Mg Tablet PO 40 mg HS KADEN Administration Polyethylene Glycol 17 gm 01/23/25 09:00 Polyethylene Glycol 3350 17 Gm Powd.Pack PO QAM KADEN Rivaroxaban 10 mg 01/22/25 17:00 01/22/25 16:12 Rivaroxaban 10 Mg Tablet PO 02/25/25 17:01 10 mg DAILY@17 KADEN Administration Senna/Docusate Sodium 2 tab 01/22/25 17:00 01/22/25 16:12 Senna/Docusate Sodium Tablet PO 2 tab BID KADEN Administration Sertraline HCl 100 mg 01/21/25 00:50 01/22/25 20:27 Sertraline Hcl 50 Mg Tablet PO 100 mg HS KADEN Administration Radiology Results: ITS Impressions Lumbar Spine CT 01/20/25 19:50 IMPRESSION: 1. No acute abnormality of the cervical spine. 2: Severe lumbar spondylosis. Pelvis CT 01/20/25 19:53 IMPRESSION: 1. Minimally displaced right femoral subcapital fracture. Hip/Pelvis X-Ray 01/20/25 20:36 Impression: 1: Right femoral subcapital fracture. Chest X-Ray 01/20/25 20:37 IMPRESSION: 1: NO ACUTE CARDIOPULMONARY DISEASE. Labs Labs: Laboratory Results - last 24 hr 01/22/25 01/22/25 01/22/25 09:15 11:26 20:07 WBC RBC Hgb Hct MCV MCH MCHC RDW Plt Count MPV Immature Gran % (Auto) Neut % (Auto) Lymph % (Auto) [place] % (Auto) Eos % (Auto) Baso % (Auto) Lymph # (Auto) [place] # (Auto) Eos # (Auto) Baso # (Auto) Abs Immat Gran (auto) Absolute Neuts (auto) Absolute Nucleated RBC Nucleated RBC % Sodium Potassium Chloride Carbon Dioxide Anion Gap BUN Creatinine Estim Creat Clear Calc Estimated GFR Glucose POC Capillary Glucose 176 H 240 H 255 H Calcium Total Bilirubin AST ALT Alkaline Phosphatase Total Protein Albumin 01/23/25 01/23/25 01/23/25 00:07 04:11 04:55 WBC 10.5 H RBC 3.59 L Hgb 10.1 L Hct 32.1 L MCV 89.4 MCH 28.1 MCHC 31.5 L RDW 14.0 Plt Count 152 MPV 10.0 Immature Gran % (Auto) 0.6 H Neut % (Auto) 78.8 H Lymph % (Auto) 10.5 L [place] % (Auto) 9.4 H Eos % (Auto) 0.4 Baso % (Auto) 0.3 Lymph # (Auto) 1.10 [place] # (Auto) 1.0 H Eos # (Auto) 0.0 Baso # (Auto) 0.0 Abs Immat Gran (auto) 0.06 H Absolute Neuts (auto) 8.3 H Absolute Nucleated RBC 0.000 Nucleated RBC % 0.0 Sodium 137 Potassium 4.5 Chloride 106 Carbon Dioxide 25 Anion Gap 6 BUN 32 H Creatinine 1.10 H Estim Creat Clear Calc 35 Estimated GFR 47 L Glucose 213 H POC Capillary Glucose 187 H 198 H Calcium 8.4 Total Bilirubin 0.4 AST 55 H ALT 55 H Alkaline Phosphatase 142 H Total Protein 6.4 Albumin 3.5 Quality VTE Prophylaxis VTE prophylaxis: pharmacologic ordered
--- NOTE | 2025-01-23 07:51 | PCPTNOTE ---
Attempted PT evaluation. Per nursing, pt not oriented and refuses most interventions at this time. Nursing recommended seeing pt this afternoon/when daughter present to see if pt is willing to participate. Will follow.
[2025-01-23] MEDS: ceFAZolin 2 GM in SODIUM CHLORIDE 0.9% IV 50 ML 100 ML IVPB (08:43)
--- NOTE | 2025-01-23 09:08 | PC.NURSE ---
RN called patient's POA to update her on patient's status this morning. Patient is refusing all care and being very hateful and uncooperative. RN called GREGORY Vicente and Cinthia came to assess patient bedside.
--- NOTE | 2025-01-23 09:12 | PC.NURSE ---
Patient is saying We are all lying to her. We are hateful. We are trying to trick her. She is also saying her daughters have put her in the hospital.
--- NOTE | 2025-01-23 09:32 | PC.NURSE ---
PURNIMA Gibson called RN back and received an update from RN. RN told her Patient is refusing all medications, blood sugars, care/assessments, and oxygen use. At this point she could desat and or have a stroke from untreated high BP. Patient's POA said her mother (the patient) called her and said Do not come up here and the nurses are sneaking shots on me. The daughter, Paige, said she was not coming up here and she was aware of the things that could happen and that she was sorry for the what we had to deal with. analysis director witnessed the conversation via Primary RN and POA.
--- NOTE | 2025-01-23 09:53 | P.PNAN_ITS ---
Anes - Prog Note Post-Op Date/Time: 01/23/25 09:53 Cardiovascular status: normal Respiratory status: normal Airway patency: baseline Mental status: baseline Post-Op hydration status: normal Vital Signs: Last Vital Signs Temp 36.4 C 01/23/25 03:19 Pulse 102 H 01/23/25 09:02 Resp 20 01/23/25 03:19 BP 162/70 H 01/23/25 03:19 Pulse Ox 95 01/23/25 09:06 O2 Del Method Nasal Cannula 01/22/25 20:15 O2 Flow Rate 3 01/22/25 20:15 FiO2 21 01/21/25 13:50 Pain Score (VAS): 2 I/O: Intake & Output 01/22/25 01/23/25 01/23/25 23:59 07:59 15:59 Intake Total 1050 100 120 Output Total 400 450 Balance 650 -350 120 Laboratory Tests 01/23/25 04:11 01/23/25 04:11 01/22/25 01/22/25 01/23/25 11:26 20:07 00:07 WBC RBC Hgb Hct MCV MCH MCHC RDW Plt Count MPV Immature Gran % (Auto) Neut % (Auto) Lymph % (Auto) [place] % (Auto) Eos % (Auto) Baso % (Auto) Lymph # (Auto) [place] # (Auto) Eos # (Auto) Baso # (Auto) Abs Immat Gran (auto) Absolute Neuts (auto) Absolute Nucleated RBC Nucleated RBC % Sodium Potassium Chloride Carbon Dioxide Anion Gap BUN Creatinine Estim Creat Clear Calc Estimated GFR Glucose POC Capillary Glucose 240 H 255 H 187 H Calcium Total Bilirubin AST ALT Alkaline Phosphatase Total Protein Albumin 01/23/25 01/23/25 04:11 04:55 WBC 10.5 H RBC 3.59 L Hgb 10.1 L Hct 32.1 L MCV 89.4 MCH 28.1 MCHC 31.5 L RDW 14.0 Plt Count 152 MPV 10.0 Immature Gran % (Auto) 0.6 H Neut % (Auto) 78.8 H Lymph % (Auto) 10.5 L [place] % (Auto) 9.4 H Eos % (Auto) 0.4 Baso % (Auto) 0.3 Lymph # (Auto) 1.10 [place] # (Auto) 1.0 H Eos # (Auto) 0.0 Baso # (Auto) 0.0 Abs Immat Gran (auto) 0.06 H Absolute Neuts (auto) 8.3 H Absolute Nucleated RBC 0.000 Nucleated RBC % 0.0 Sodium 137 Potassium 4.5 Chloride 106 Carbon Dioxide 25 Anion Gap 6 BUN 32 H Creatinine 1.10 H Estim Creat Clear Calc 35 Estimated GFR 47 L Glucose 213 H POC Capillary Glucose 198 H Calcium 8.4 Total Bilirubin 0.4 AST 55 H ALT 55 H Alkaline Phosphatase 142 H Total Protein 6.4 Albumin 3.5 Post-procedural complaints: none Patient Feedback: Patient satisfied with anesthetic care.
--- NOTE | 2025-01-23 10:44 | PC.NURSE ---
RN and CLEVE Garcia were in room with patient when patient said she wants to and go to [facility] and everyone should go with what she wishes.
--- NOTE | 2025-01-23 11:03 | P.PNOP_ITS ---
Progress Note: A&P Assessment and Plan (1) Closed subcapital fracture of neck of right femur: Qualifiers: Encounter type: subsequent encounter Fracture healing: with routine healing Qualified Code(s): S72.011D - Unspecified intracapsular fracture of right femur, subsequent encounter for closed fracture with routine healing Code(s): S72.011A - Unspecified intracapsular fracture of right femur, initial encounter for closed fracture Status: Acute Assessment and Plan: Postoperative day 1 right hip pinning. Right leg exam benign and neurovascularly intact. Surgical treatment reviewed with the patient. She is refusing therapy, medical and nursing care. Reviewed the risks, benefits and alternatives of treatment. Will attempt to mobilize with therapy. Recommend psychiatric consult. Subjective Subjective Date/Time Seen: 01/23/25 11:03 Post Op day: 1 Principal diagnosis: right hip fracture Interval history: 1 day status post right hip pinning. Patient awake and alert sitting up in bed. States that she does not want to do any therapy or get out of bed. She is refusing her medication. Exam Const: General: No confusion Orientation/consciousness: patient oriented x3 and No confusion Resp: Effort & Inspection: normal respiratory effort and no audible wheezes Skin: General skin exam: no rashes or lesions noted Neuro: General: patient oriented x3 and No confusion Extrem: General: capillary refill normal Right upper extremity: normal to inspection Left upper extremity: normal to inspection Right lower extremity: hip/thigh Details: tenderness Location: of the hip Location: laterally, swelling Location: at the hip ( mild) and other ( Dressing clean dry and intact. No erythema. Muscles soft.), ankle ( able to actively flex and extend ankle) Details: no tenderness and foot Details: normal capillary refill, toes with normal ROM, vascular exam Details: dorsalis pedis pulse present and normal capillary refill and motor-sensory exam Details: light-touch normal Location: in all toes; no tenderness Left lower extremity: normal to inspection, hip/thigh Details: no tenderness and no swelling, lower leg, ankle (no calf tenderness) Details: normal ROM; no tenderness and foot Details: normal capillary refill, vascular exam Details: dorsalis pedis pulse present and normal capillary refill and motor-sensory exam light-touch normal in all toes Psych: Affect: normal affect Objective Data Vital Signs Vital Signs: Vital Signs - 24 hr 01/22/25 11:45 01/22/25 12:00 01/22/25 16:00 Temperature 98.0 F Pulse Rate 67 74 59 L Respiratory Rate 18 Blood Pressure 150/59 H Pulse Oximetry 93 Oxygen Delivery Oxygen Flow Rate 01/22/25 17:05 01/22/25 18:16 01/22/25 18:38 Temperature 98.2 F Pulse Rate 88 103 H Respiratory Rate 14 Blood Pressure 180/82 H 172/65 H Pulse Oximetry 96 Oxygen Delivery Oxygen Flow Rate 01/22/25 20:00 01/22/25 20:03 01/22/25 20:09 Temperature 98.1 F Pulse Rate 111 H 109 H Respiratory Rate 20 Blood Pressure 173/71 H Pulse Oximetry 92 94 Oxygen Delivery Nasal Cannula Oxygen Flow Rate 2 01/22/25 20:15 01/23/25 00:00 01/23/25 00:02 Temperature 97.2 F L Pulse Rate 95 106 H Respiratory Rate 18 Blood Pressure 159/72 H Pulse Oximetry 92 91 Oxygen Delivery Nasal Cannula Oxygen Flow Rate 3 01/23/25 03:19 01/23/25 04:00 01/23/25 08:15 Temperature 97.6 F Pulse Rate 98 99 Respiratory Rate 20 Blood Pressure 162/70 H Pulse Oximetry 99 95 Oxygen Delivery Room Air Oxygen Flow Rate 01/23/25 09:02 01/23/25 09:06 Temperature Pulse Rate 102 H Respiratory Rate Blood Pressure Pulse Oximetry 95 Oxygen Delivery Oxygen Flow Rate Intake/Output Intake/Output: Intake & Output 01/20/25 01/21/25 01/22/25 01/23/25 23:59 23:59 23:59 23:59 Intake Total 1660 1360 220 Output Total 900 650 450 Balance 760 710 -230 Meds/Results Medications: Active Medications Generic Name Dose Route Start Last Admin Trade Name Freq PRN Reason Stop Dose Admin Acetaminophen 500 mg 01/20/25 22:19 Acetaminophen 500 Mg Tablet PO Q6H PRN Mild Pain (1-3) or Fever Hydrocodone Bitart/Acetaminophen 1 tab 01/20/25 22:19 01/23/25 04:58 Hydrocodone/Acetaminophen (*Crx) 10-325 Mg Tablet PO 1 tab Q4H PRN Administration Pain Rated 4-6 Carvedilol 50 mg 01/21/25 09:00 01/23/25 10:43 Carvedilol 25 Mg Tablet PO Not Given Q12HR [facility] Clonidine HCl 0.2 mg 01/23/25 09:00 01/23/25 10:43 Clonidine Hcl 0.2 Mg Tablet PO Not Given Q12HR [facility] Dextrose 12.5 gm 01/21/25 00:35 Dextrose 50% 25 Gm/50 Ml Syringe IV PUSH PRN PRN Hypoglycemia Protocol Furosemide 20 mg 01/23/25 09:00 01/23/25 10:43 Furosemide 20 Mg Tablet PO Not Given QAM [facility] Gabapentin 300 mg 01/22/25 13:00 01/23/25 10:43 Gabapentin 300 Mg Capsule PO Not Given TID [facility] Glucose 15 gm 01/21/25 00:35 Glucose Oral Gel 15 Gm Of Glucse In 37.5 Gm Tube PO PRN PRN Hypoglycemia Protocol Hydromorphone HCl 0.5 mg 01/21/25 14:52 01/23/25 03:26 Hydromorphone Hcl Inj (*Crx) 1 Mg/Ml Syr IV PUSH 0.5 mg Q2H PRN Administration Pain Rated 7-10 Hydroxyzine HCl 50 mg 01/22/25 10:00 Hydroxyzine Hcl 50 Mg/Ml Vial IM Q4H PRN Itching Dextrose 1,000 mls @ 100 mls/hr 01/21/25 00:35 Dextrose 5% 1,000 Ml IVPB PRN PRN Hypoglycemia Protocol Sodium Chloride 1,000 mls @ 75 mls/hr 01/22/25 10:00 01/22/25 23:57 Normal Saline Iv IV CONT 75 mls/hr .[id number] KADEN Administration Insulin Aspart 2 - 5 units 01/21/25 06:00 01/23/25 05:41 Insulin Aspart (*Bkc) 100 Units/Ml SUB-Q Not Given Q6HR [facility] Protocol Melatonin 10 mg 01/21/25 00:34 01/22/25 20:27 Melatonin 5 Mg Tablet PO 10 mg HS PRN Administration Sleep Naloxone HCl 0.1 mg 01/21/25 14:51 Naloxone Hcl 0.4 Mg/Ml Vial IV PUSH Q5MIN PRN Opioid Reversal Naloxone HCl 0.1 mg 01/22/25 10:00 Naloxone Hcl 0.4 Mg/Ml Vial IV PUSH Q2M PRN Opiate Reversal Ondansetron HCl 4 mg 01/22/25 05:54 01/22/25 20:33 Ondansetron Inj 4 Mg/2 Ml Vial IV PUSH 4 mg Q6H PRN Administration Nausea And Vomiting Pantoprazole Sodium 40 mg 01/21/25 21:00 01/22/25 20:27 Pantoprazole 40 Mg Tablet PO 40 mg HS [facility] Administration Polyethylene Glycol 17 gm 01/23/25 09:00 01/23/25 10:43 Polyethylene Glycol 3350 17 Gm Powd.Pack PO Not Given QAM [facility] Rivaroxaban 10 mg 01/22/25 17:00 01/22/25 16:12 Rivaroxaban 10 Mg Tablet PO 02/25/25 17:01 10 mg DAILY@17 KADEN Administration Senna/Docusate Sodium 2 tab 01/22/25 17:00 01/23/25 10:43 Senna/Docusate Sodium Tablet PO Not Given BID KADEN Sertraline HCl 100 mg 01/21/25 00:50 01/22/25 20:27 Sertraline Hcl 50 Mg Tablet PO 100 mg HS [facility] Administration Spironolactone 25 mg 01/23/25 09:00 01/23/25 10:44 Spironolactone 25 Mg Tablet PO Not Given DAILY KADEN Terazosin HCl 2 mg 01/23/25 21:00 Terazosin Hcl 1 Mg Capsule PO [facility] Radiology Results: ITS Impressions Lumbar Spine CT 01/20/25 19:50 IMPRESSION: 1. No acute abnormality of the cervical spine. 2: Severe lumbar spondylosis. Pelvis CT 01/20/25 19:53 IMPRESSION: 1. Minimally displaced right femoral subcapital fracture. Hip/Pelvis X-Ray 01/20/25 20:36 Impression: 1: Right femoral subcapital fracture. Chest X-Ray 01/20/25 20:37 IMPRESSION: 1: NO ACUTE CARDIOPULMONARY DISEASE. Intraoperative X-Ray 01/23/25 08:02 IMPRESSION: 1. Lag screw fixation of subcapital fracture of the proximal right femur which remains in near anatomic alignment. Labs Labs: Laboratory Results - last 24 hr 01/22/25 01/22/25 01/23/25 11:26 20:07 00:07 WBC RBC Hgb Hct MCV MCH MCHC RDW Plt Count MPV Immature Gran % (Auto) Neut % (Auto) Lymph % (Auto) [place] % (Auto) Eos % (Auto) Baso % (Auto) Lymph # (Auto) [place] # (Auto) Eos # (Auto) Baso # (Auto) Abs Immat Gran (auto) Absolute Neuts (auto) Absolute Nucleated RBC Nucleated RBC % Sodium Potassium Chloride Carbon Dioxide Anion Gap BUN Creatinine Estim Creat Clear Calc Estimated GFR Glucose POC Capillary Glucose 240 H 255 H 187 H Calcium Total Bilirubin AST ALT Alkaline Phosphatase Total Protein Albumin 01/23/25 01/23/25 04:11 04:55 WBC 10.5 H RBC 3.59 L Hgb 10.1 L Hct 32.1 L MCV 89.4 MCH 28.1 MCHC 31.5 L RDW 14.0 Plt Count 152 MPV 10.0 Immature Gran % (Auto) 0.6 H Neut % (Auto) 78.8 H Lymph % (Auto) 10.5 L [place] % (Auto) 9.4 H Eos % (Auto) 0.4 Baso % (Auto) 0.3 Lymph # (Auto) 1.10 [place] # (Auto) 1.0 H Eos # (Auto) 0.0 Baso # (Auto) 0.0 Abs Immat Gran (auto) 0.06 H Absolute Neuts (auto) 8.3 H Absolute Nucleated RBC 0.000 Nucleated RBC % 0.0 Sodium 137 Potassium 4.5 Chloride 106 Carbon Dioxide 25 Anion Gap 6 BUN 32 H Creatinine 1.10 H Estim Creat Clear Calc 35 Estimated GFR 47 L Glucose 213 H POC Capillary Glucose 198 H Calcium 8.4 Total Bilirubin 0.4 AST 55 H ALT 55 H Alkaline Phosphatase 142 H Total Protein 6.4 Albumin 3.5
--- NOTE | 2025-01-23 11:45 | PC.NURSE ---
Patient's POA, Paige, called for an update on patient. She stated she would be sending paperwork from previous doctor's appointments and DNR paperwork.
--- NOTE | 2025-01-23 11:52 | PC.NURSE ---
Patient is moaning in pain, but refuses medications because she believes they will prolong her life. She is mad at RN for continuously bothering her and not being on her side and allowing her to . RN explained to patient that pain medications will only make her more comfortable until decisions and orders are fully made and established.
--- NOTE | 2025-01-23 11:55 | PC.NURSE ---
Patient is still refusing everything, but did allow vitals to be taken.
--- NOTE | 2025-01-23 12:28 | PC.NURSE ---
Patient wanted to call Paige so RN assisted her with the phone.
[2025-01-23] MEDS: FUROSEMIDE 20 MG TABLET PO (12:43)
[2025-01-23] MEDS: GABAPENTIN 300 MG CAPSULE PO ×2 (12:43→17:23)
[2025-01-23] MEDS: SPIRONOLACTONE 25 MG TABLET PO (12:44)
[2025-01-23] MEDS: SENNA/DOCUSATE SODIUM TABLET 2 TAB PO ×2 (12:44→17:24)
--- NOTE | 2025-01-23 12:46 | PC.NURSE ---
Patient is now asking for medications. RN just administered morning medications after GREGORY Vicente and RN were bedside when patient said she would agree to do everything now since she can go back to [place] if she does.
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
[2025-01-23] MEDS: RIVAROXABAN 10 MG TABLET PO (17:23)
[2025-01-23] MEDS: INSULIN ASPART (*BKC) 100 UNITS/ML SUB-Q (17:25)
[2025-01-23] MEDS: SODIUM CHLORIDE 0.9% IV 1,000 ML 75 ML IV CONT (17:27)
[2025-01-23] MEDS: MELATONIN 5 MG TABLET 10 MG PO (20:38)
[2025-01-23] MEDS: PANTOPRAZOLE 40 MG TABLET PO (20:39)
[2025-01-23] MEDS: SERTRALINE HCL 50 MG TABLET 150 MG PO (20:40)
[2025-01-24] MEDS: HYDROcodone/acetaminophen (*CRX) 10-325 MG TABLET 1 TAB PO ×4 (03:00→18:20)
[2025-01-24 05:08] LABS: Hematocrit 31.1 % (37.0-47.0); Hemoglobin 9.6 g/dL (12.0-15.0); Mean Corpuscular HGB Conc 30.9 g/dl (32-36); Mean Corpuscular Hemoglobin 27.7 pg (26-34); Mean Corpuscular Volume 89.9 fl (80-100); Platelet Count Result 158 k/mm3 (150-375); Red Blood Count 3.46 M/mm3 (4.2-5.4); White Blood Count 9.0 K/mm3 (4.5-10.0)
[2025-01-24 05:20] VITALS: BP 146/68; PULSE 93; RESP 20; TEMP 36.8; O2SAT 90
[2025-01-24] MEDS: INSULIN ASPART (*BKC) 100 UNITS/ML SUB-Q ×4 (05:33→22:41)
[2025-01-24] MEDS: SODIUM CHLORIDE 0.9% IV 1,000 ML 75 ML IV CONT ×2 (05:33→17:28)
[2025-01-24 05:46] LABS: Alanine Aminotransferase 30 U/L (6-35); Albumin Level 3.3 g/dL (3.5-5.1); Alkaline Phosphatase 127 U/L (38-126); Anion Gap 6 mmol/L (4-12); Aspartate Amino Transferase 35 U/L (14-36); Bilirubin,Total 0.4 mg/dL (0.2-1.3); Blood Urea Nitrogen 35 mg/dL (7-17); Calcium 8.6 mg/dL (8.4-10.2); Carbon Dioxide 26 mmol/L (22-30); Chloride 105 mmol/L (98-107); Estimated CRCL calculation 34 ml/min; Estimated Glomerular Filt Rate 46; Glucose 242 mg/dL (65-110); Potassium 4.8 mmol/L (3.4-5.0); Sodium 137 mmol/L (137-145); Total Protein 6.3 g/dL (6.3-8.2)
--- NOTE | 2025-01-24 06:52 | PM.IMPN ---
Progress Note: A&P Assessment and Plan (1) Fall from ground level: Code(s): W18.30XA - Fall on same level, unspecified, initial encounter Status: Acute Assessment and Plan: Mechanical ground level fall, denies head strike and LOC. Denies dizziness or lightheadedness prior to fall. Denies seizure like activity. Uses a walker and a cane at baseline - No signs of infection, WBC WNL and remains afebrile - Chest XR: Unremarkable - Hip/pelvis XR: Right femoral subcapital fracture - Pelvis CT: Minimally displaced right femoral subcapital fracture - Lumbar spine CT: severe lumbar spondylosis - See plan below for right femoral subcapital fracture (2) Closed subcapital fracture of neck of right femur: Qualifiers: Encounter type: subsequent encounter Fracture healing: with routine healing Qualified Code(s): S72.011D - Unspecified intracapsular fracture of right femur, subsequent encounter for closed fracture with routine healing Code(s): S72.011A - Unspecified intracapsular fracture of right femur, initial encounter for closed fracture Status: Acute Assessment and Plan: Hip/pelvis XR: Right femoral subcapital fracture Pelvis CT: Minimally displaced right femoral subcapital fracture Analgesics: Tylenol, [place], Dilaudid p.r.n. Given narcotic use and prior hypoxia, patient to remain on continuous pulse ox and narcan PRN ordered for opioid reversal. saturations remains stable on room air DVT ppx: SCD and xarelto Diet: diabetic diet Incentive spirometer Carey in place for immobility, remove when appropriate PT/OT per ortho recommendations weight bearing as tolerated recommending SNF placement Ortho consulted s/p right hip pinning 01/[address] Page attempt to mobilize with therapy (3) Acute hypoxemic respiratory failure: Code(s): J96.01 - Acute respiratory failure with hypoxia Status: Acute Assessment and Plan: Patients oxygen saturations were stable on arrival however per chart review saturation dropped to 88% on room air after receiving fentanyl 50 mcg IV x1. Patient was placed on 2L NC at that time and saturations remain stable, wean as tolerated to maintain SpO2 > 90% Chest XR unremarkable on arrival, hypoxia likely related to narcotic use and the fact that patient states holding her breath when in pain Patient was also started on IV fluids which have since been discontinued given heart failure history, continue to monitor volume status Resolved. Patient on room air with stable saturations. (4) Hypertension: Qualifiers: Hypertension type: unspecified Qualified Code(s): I10 - Essential (primary) hypertension Code(s): I10 - Essential (primary) hypertension Status: Acute Assessment and Plan: Chronic, continue home medication - carvedilol 50 mg BID - clonidine 0.2 mg BID - lasix 20 mg daily - spironolactone 25 mg daily - blood pressures reviewed and remain stable, continue to monitor (5) Heart failure, type unknown: Code(s): I50.9 - Heart failure, unspecified Status: Acute Assessment and Plan: Chronic, does not appear in acute exacerbation Echo 11/02/2024: LVEF 60-65% with grade I diastolic dysfunction Monitor volume status Daily weights Monitor I/O Remains euvolemic on exam. (6) Insulin dependent diabetes mellitus: Status: Acute Assessment and Plan: - hypoglycemia protocol - POC blood glucose ACHS - home medication - ozempic 2 mg weekly, tresiba 36 units HS, lispro 8 units TIDWM - correct regimen ordered - SSI, started on lantus 28 units (20% home dose) - A1C 9 on 10/31/24 Glucose elevated into the 200s since resuming diet. Will resume long acting insulin and continue to monitor. (7) Major depressive disorder: Qualifiers: Active/Remission status: currently active Major depression episode severity: severe Major depression recurrence: recurrent Psychotic features: without psychotic features Qualified Code(s): F33.2 - Major depressive disorder, recurrent severe without psychotic features Code(s): F32.9 - Major depressive disorder, single episode, unspecified Status: Acute Assessment and Plan: Long history of depression and anxiety Evaluated by psychiatry Sertraline increased to 150 mg daily Encourage medication compliance, patient manages her own medications at home. Recommend psychotherapy to address family conflicts and coping strategies Educate patient on importance of med adherence and potential benefits of dose increase Discuss option of restricting visitors at care facility if desired by patient Encourage physical activity and participation in post-operative rehabilitation to facilitate return to care facility Time Spent With Patient Time with patient: 25 - 35 minutes Subjective Date/time seen: 01/24/25 06:52 Interval history: 84-year-old female with past medical history of gout, anemia, osteoarthritis, GERD, CKD, hyperlipidemia, hypertension, insulin-dependent diabetes mellitus, and heart failure presents to the hospital with a ground level fall. Patient is lying in bed. She remains AOx4 and on room air with stable saturations. Patient has no complaints denying chest pain, palpitations, shortness of breath, nausea/vomiting and abdominal pain. Patient endorsing slight pain to the hip, discussed with her that when she is in pain she is to tell the nurse and a pain regimen is in place for her. She states understanding. Again encouraged patient to work with PT/OT today as tolerated as she still wishes to return to [facility] on discharge. She states she will try. Review of Systems Review of Systems: All systems reviewed & are unremarkable except as noted in HPI and below Exam Narrative: AF HR 96 RR 20 Spo2 90 BP 146/68 General: female in no acute respiratory distress who is nontoxic appearing, lying semi recumbent in bed. HEENT: Normocephalic. Atraumatic. Extraocular movement intact. Sclera clear and anicteric. No facial asymmetry. Chest: Lungs are clear to auscultation bilaterally. CV: Heart was regular rate and rhythm. Abd: Abdomen was soft. Nontender. Nondistended. Positive bowel sounds. Ext: No clubbing, cyanosis, or edema. Slight swelling to the right hip with clean/dry/and intact dressing. DP pulses bilaterally. Sensation intact. Wiggling toes. Neuro: Patient is alert and oriented x4. Speech is clear. Objective Data Vital Signs Vital Signs: Vital Signs - 24 hr 01/23/25 08:15 01/23/25 09:02 01/23/25 09:06 Temperature Pulse Rate 102 H Respiratory Rate Blood Pressure Pulse Oximetry 95 95 Oxygen Delivery Room Air 01/23/25 11:40 01/23/25 12:44 01/23/25 13:27 Temperature 97.7 F Pulse Rate 108 H 84 Respiratory Rate 16 Blood Pressure 178/92 H Pulse Oximetry 95 Oxygen Delivery Room Air 01/23/25 13:43 01/23/25 16:38 01/23/25 20:00 Temperature 98.5 F Pulse Rate 90 Respiratory Rate 17 Blood Pressure 144/68 H Pulse Oximetry 99 Oxygen Delivery Room Air Room Air 01/23/25 20:46 01/23/25 23:37 01/24/25 05:20 Temperature 98.9 F 98.5 F 98.2 F Pulse Rate 97 95 93 Respiratory Rate 20 20 20 Blood Pressure 143/67 H 137/64 146/68 H Pulse Oximetry 93 91 90 Oxygen Delivery Intake/Output Intake/Output: Intake & Output 01/21/25 01/22/25 01/23/25 01/24/25 23:59 23:59 23:59 23:59 Intake Total 1660 1360 2050 1207.5 Output Total 917 900 3495 250 Balance 760 710 650 957.5 Meds/Results Medications: Active Medications Generic Name Dose Route Start Last Admin Trade Name Freq PRN Reason Stop Dose Admin Acetaminophen 500 mg 01/20/25 22:19 Acetaminophen 500 Mg Tablet PO Q6H PRN Mild Pain (1-3) or Fever Hydrocodone Bitart/Acetaminophen 1 tab 01/20/25 22:19 01/24/25 03:00 Hydrocodone/Acetaminophen (*Crx) 10-325 Mg Tablet PO 1 tab Q4H PRN Administration Pain Rated 4-6 Carvedilol 50 mg 01/21/25 09:00 01/23/25 12:44 Carvedilol 25 Mg Tablet PO 50 mg Q12HR KADEN Administration Clonidine HCl 0.2 mg 01/23/25 09:00 01/23/25 12:44 Clonidine Hcl 0.2 Mg Tablet PO 0.2 mg Q12HR KADEN Administration Dextrose 12.5 gm 01/21/25 00:35 Dextrose 50% 25 Gm/50 Ml Syringe IV PUSH PRN PRN Hypoglycemia Protocol Furosemide 20 mg 01/23/25 09:00 01/23/25 12:43 Furosemide 20 Mg Tablet PO 20 mg QAM KADEN Administration Gabapentin 300 mg 01/22/25 13:00 01/23/25 17:23 Gabapentin 300 Mg Capsule PO 300 mg TID KADEN Administration Glucose 15 gm 01/21/25 00:35 Glucose Oral Gel 15 Gm Of Glucse In 37.5 Gm Tube PO PRN PRN Hypoglycemia Protocol Hydromorphone HCl 0.5 mg 01/23/25 12:57 Hydromorphone Hcl Inj (*Crx) 1 Mg/Ml Syr IV PUSH Q3H PRN Pain Rated 7-10 Hydroxyzine HCl 50 mg 01/22/25 10:00 Hydroxyzine Hcl 50 Mg/Ml Vial IM Q4H PRN Itching Dextrose 1,000 mls @ 100 mls/hr 01/21/25 00:35 Dextrose 5% 1,000 Ml IVPB PRN PRN Hypoglycemia Protocol Sodium Chloride 1,000 mls @ 75 mls/hr 01/22/25 10:00 01/24/25 05:33 Normal Saline Iv IV CONT 75 mls/hr .[id number] KADEN Administration Insulin Aspart 2 - 5 units 01/21/25 06:00 01/24/25 05:33 Insulin Aspart (*Bkc) 100 Units/Ml SUB-Q 2 units Q6HR KADEN Administration Protocol Melatonin 10 mg 01/21/25 00:34 01/23/25 20:38 Melatonin 5 Mg Tablet PO 10 mg HS PRN Administration Sleep Naloxone HCl 0.1 mg 01/21/25 14:51 Naloxone Hcl 0.4 Mg/Ml Vial IV PUSH Q5MIN PRN Opioid Reversal Naloxone HCl 0.1 mg 01/22/25 10:00 Naloxone Hcl 0.4 Mg/Ml Vial IV PUSH Q2M PRN Opiate Reversal Ondansetron HCl 4 mg 01/22/25 05:54 01/22/25 20:33 Ondansetron Inj 4 Mg/2 Ml Vial IV PUSH 4 mg Q6H PRN Administration Nausea And Vomiting Pantoprazole Sodium 40 mg 01/21/25 21:00 01/23/25 20:39 Pantoprazole 40 Mg Tablet PO 40 mg HS KADEN Administration Polyethylene Glycol 17 gm 01/23/25 09:00 01/23/25 10:43 Polyethylene Glycol 3350 17 Gm Powd.Pack PO Not Given QAM KADEN Rivaroxaban 10 mg 01/22/25 17:00 01/23/25 17:23 Rivaroxaban 10 Mg Tablet PO 02/25/25 17:01 10 mg DAILY@17 KADEN Administration Senna/Docusate Sodium 2 tab 01/22/25 17:00 01/23/25 17:24 Senna/Docusate Sodium Tablet PO 2 tab BID KADEN Administration Sertraline HCl 150 mg 01/23/25 21:00 01/23/25 20:40 Sertraline Hcl 50 Mg Tablet PO 150 mg HS KADEN Administration Spironolactone 25 mg 01/23/25 09:00 01/23/25 12:44 Spironolactone 25 Mg Tablet PO 25 mg DAILY KADEN Administration Radiology Results: ITS Impressions Lumbar Spine CT 01/20/25 19:50 IMPRESSION: 1. No acute abnormality of the cervical spine. 2: Severe lumbar spondylosis. Pelvis CT 01/20/25 19:53 IMPRESSION: 1. Minimally displaced right femoral subcapital fracture. Hip/Pelvis X-Ray 01/20/25 20:36 Impression: 1: Right femoral subcapital fracture. Chest X-Ray 01/20/25 20:37 IMPRESSION: 1: NO ACUTE CARDIOPULMONARY DISEASE. Intraoperative X-Ray 01/23/25 08:02 IMPRESSION: 1. Lag screw fixation of subcapital fracture of the proximal right femur which remains in near anatomic alignment. Labs Labs: Laboratory Results - last 24 hr 01/23/25 01/23/25 01/24/25 16:42 20:43 04:21 WBC 9.0 RBC 3.46 L Hgb 9.6 L Hct 31.1 L MCV 89.9 MCH 27.7 MCHC 30.9 L RDW 14.0 Plt Count 158 MPV 10.6 H Sodium 137 Potassium 4.8 Chloride 105 Carbon Dioxide 26 Anion Gap 6 BUN 35 H Creatinine 1.14 H Estim Creat Clear Calc 34 Estimated GFR 46 L Glucose 242 H POC Capillary Glucose 219 H 208 H Calcium 8.6 Total Bilirubin 0.4 AST 35 ALT 30 Alkaline Phosphatase 127 H Total Protein 6.3 Albumin 3.3 L 01/24/25 05:13 WBC RBC Hgb Hct MCV MCH MCHC RDW Plt Count MPV Sodium Potassium Chloride Carbon Dioxide Anion Gap BUN Creatinine Estim Creat Clear Calc Estimated GFR Glucose POC Capillary Glucose 217 H Calcium Total Bilirubin AST ALT Alkaline Phosphatase Total Protein Albumin Quality VTE Prophylaxis VTE prophylaxis: pharmacologic ordered
[2025-01-24 09:56] VITALS: PULSE 96
[2025-01-24] MEDS: SENNA/DOCUSATE SODIUM TABLET 2 TAB PO ×2 (09:58→17:24)
[2025-01-24] MEDS: GABAPENTIN 300 MG CAPSULE PO ×3 (09:58→17:23)
--- NOTE | 2025-01-24 12:01 | PC.NURSE ---
RN returned phone call to Paige.
[2025-01-24 13:55] VITALS: BMI 11.0
[2025-01-24 14:40] VITALS: BP 132/50; PULSE 92; RESP 14; TEMP 36.8; O2SAT 93
[2025-01-24] MEDS: RIVAROXABAN 10 MG TABLET PO (17:24)
[2025-01-24 20:48] VITALS: BP 167/76; PULSE 90; RESP 20; TEMP 37; O2SAT 90
[2025-01-24 21:10] VITALS: O2SAT 90
[2025-01-24 22:39] VITALS: PULSE 80
[2025-01-24] MEDS: PANTOPRAZOLE 40 MG TABLET PO (22:39)
[2025-01-24] MEDS: INSULIN GLARGINE (*BKC) 100 UNITS/ML 28 UNITS SUB-Q (22:41)
[2025-01-24] MEDS: SERTRALINE HCL 50 MG TABLET 150 MG PO (22:41)
[2025-01-25 04:21] VITALS: BP 154/68; PULSE 88; RESP 20; TEMP 37.1; O2SAT 92
[2025-01-25 05:11] LABS: Hematocrit 27.8 % (37.0-47.0); Hemoglobin 8.8 g/dL (12.0-15.0); Mean Corpuscular HGB Conc 31.7 g/dl (32-36); Mean Corpuscular Hemoglobin 27.8 pg (26-34); Mean Corpuscular Volume 88.0 fl (80-100); Platelet Count Result 147 k/mm3 (150-375); Red Blood Count 3.16 M/mm3 (4.2-5.4); White Blood Count 8.7 K/mm3 (4.5-10.0)
[2025-01-25 05:38] LABS: Alanine Aminotransferase 25 U/L (6-35); Albumin Level 2.9 g/dL (3.5-5.1); Alkaline Phosphatase 130 U/L (38-126); Anion Gap 5 mmol/L (4-12); Aspartate Amino Transferase 48 U/L (14-36); Bilirubin,Total 0.3 mg/dL (0.2-1.3); Blood Urea Nitrogen 36 mg/dL (7-17); Calcium 7.9 mg/dL (8.4-10.2); Carbon Dioxide 23 mmol/L (22-30); Chloride 105 mmol/L (98-107); Estimated CRCL calculation 38 ml/min; Estimated Glomerular Filt Rate 54; Glucose 257 mg/dL (65-110); Potassium 4.1 mmol/L (3.4-5.0); Sodium 133 mmol/L (137-145); Total Protein 5.9 g/dL (6.3-8.2)
[2025-01-25] MEDS: SODIUM CHLORIDE 0.9% IV 1,000 ML 75 ML IV CONT (07:33)
[2025-01-25] MEDS: INSULIN ASPART (*BKC) 100 UNITS/ML SUB-Q ×4 (07:55→21:25)
[2025-01-25 08:00] VITALS: BP 172/70; PULSE 88; RESP 16; TEMP 36.9; O2SAT 91
--- NOTE | 2025-01-25 08:22 | PM.IMPN ---
Progress Note: A&P Assessment and Plan (1) Fall from ground level: Code(s): W18.30XA - Fall on same level, unspecified, initial encounter Status: Acute Assessment and Plan: Mechanical ground level fall, denies head strike and LOC. Denies dizziness or lightheadedness prior to fall. Denies seizure like activity. Uses a walker and a cane at baseline - No signs of infection, WBC WNL and remains afebrile - Chest XR: Unremarkable - Hip/pelvis XR: Right femoral subcapital fracture - Pelvis CT: Minimally displaced right femoral subcapital fracture - Lumbar spine CT: severe lumbar spondylosis - See plan below for right femoral subcapital fracture pain control pt/ot placement (2) Closed subcapital fracture of neck of right femur: Qualifiers: Encounter type: subsequent encounter Fracture healing: with routine healing Qualified Code(s): S72.011D - Unspecified intracapsular fracture of right femur, subsequent encounter for closed fracture with routine healing Code(s): S72.011A - Unspecified intracapsular fracture of right femur, initial encounter for closed fracture Status: Acute Assessment and Plan: Hip/pelvis XR: Right femoral subcapital fracture Pelvis CT: Minimally displaced right femoral subcapital fracture Analgesics: Tylenol, [place], Dilaudid p.r.n. Given narcotic use and prior hypoxia, patient to remain on continuous pulse ox and narcan PRN ordered for opioid reversal. saturations remains stable on room air DVT ppx: SCD and xarelto Diet: diabetic diet Incentive spirometer Carey in place for immobility, remove when appropriate PT/OT per ortho recommendations weight bearing as tolerated recommending SNF placement Ortho consulted s/p right hip pinning 01/[address] Page attempt to mobilize with therapy plan for discharge to [facility] (3) Hypertension: Qualifiers: Hypertension type: unspecified Qualified Code(s): I10 - Essential (primary) hypertension Code(s): I10 - Essential (primary) hypertension Status: Acute Assessment and Plan: Chronic, continue home medication - carvedilol 50 mg BID - clonidine 0.2 mg BID - lasix 20 mg daily - spironolactone 25 mg daily - blood pressures reviewed and remain stable, continue to monitor (4) Heart failure, type unknown: Code(s): I50.9 - Heart failure, unspecified Status: Acute Assessment and Plan: Chronic, does not appear in acute exacerbation Echo 11/02/2024: LVEF 60-65% with grade I diastolic dysfunction Monitor volume status Daily weights Monitor I/O Remains euvolemic on exam. (5) Insulin dependent diabetes mellitus: Status: Acute Assessment and Plan: - hypoglycemia protocol - POC blood glucose ACHS - home medication - ozempic 2 mg weekly, tresiba 36 units HS, lispro 8 units TIDWM - correct regimen ordered - SSI, started on lantus 28 units (20% home dose) - A1C 9 on 10/31/24 Glucose elevated into the 200s since resuming diet. Will resume long acting insulin and continue to monitor. (6) Major depressive disorder: Qualifiers: Active/Remission status: currently active Major depression episode severity: severe Major depression recurrence: recurrent Psychotic features: without psychotic features Qualified Code(s): F33.2 - Major depressive disorder, recurrent severe without psychotic features Code(s): F32.9 - Major depressive disorder, single episode, unspecified Status: Acute Assessment and Plan: Long history of depression and anxiety Evaluated by psychiatry Sertraline increased to 150 mg daily Encourage medication compliance, patient manages her own medications at home. Recommend psychotherapy to address family conflicts and coping strategies Educate patient on importance of med adherence and potential benefits of dose increase Discuss option of restricting visitors at care facility if desired by patient Encourage physical activity and participation in post-operative rehabilitation to facilitate return to care facility Time Spent With Patient Time with patient: Greater than 35 minutes Subjective Date/time seen: 01/25/25 08:22 Interval history: 84-year-old female with past medical history of gout, anemia, osteoarthritis, GERD, CKD, hyperlipidemia, hypertension, insulin-dependent diabetes mellitus, and heart failure presents to the hospital with a ground level fall. Assuming care. Pt is seen and examined. Patient is lying in bed. She remains AOx4 and on room air with stable saturations. Patient has no complaints denying chest pain, palpitations, shortness of breath, nausea/vomiting and abdominal pain. Patient endorsing slight pain to the hip, discussed with her that when she is in pain she is to tell the nurse and a pain regimen is in place for her. She states understanding. Again encouraged patient to work with PT/OT today as tolerated as she still wishes to return to [facility] on discharge. She states she will try. Pt is seen and examined. She is able to work with pt/ot for a little bit. Added flexeril helped with pain. Pending placement. Review of Systems Review of Systems: All systems reviewed & are unremarkable except as noted in HPI and below Exam Narrative: AF HR 96 RR 20 Spo2 90 BP 146/68 General: female in no acute respiratory distress who is nontoxic appearing, lying semi recumbent in bed. HEENT: Normocephalic. Atraumatic. Extraocular movement intact. Sclera clear and anicteric. No facial asymmetry. Chest: Lungs are clear to auscultation bilaterally. CV: Heart was regular rate and rhythm. Abd: Abdomen was soft. Nontender. Nondistended. Positive bowel sounds. Ext: No clubbing, cyanosis, or edema. Slight swelling to the right hip with clean/dry/and intact dressing. DP pulses bilaterally. Sensation intact. Wiggling toes. Neuro: Patient is alert and oriented x4. Speech is clear. Const: General: comfortable and no acute distress HENMT: Mouth: Yes dry mucous membranes Eyes: Pupils: Equal, round and reactive pupils present Neck: Neck: supple Resp: Effort & Inspection: normal respiratory effort Other: Mild bibasilar crackles Cardio: Rate: regular rate Rhythm: regular rhythm Heart sounds: no gallops, no murmurs and no rubs GI: Inspection: non-distended : General: Yes bladder normal to palpation Bimanual exam- vagina & uterus: bladder normal to palpation Neuro: Cranial nerves: Yes Equal, round and reactive pupils present Other: Motion of the right lower extremity limited by pain at the right hip Extrem: General: no edema Objective Data Vital Signs Vital Signs: Vital Signs - 24 hr 01/24/25 09:45 01/24/25 09:56 01/24/25 14:40 Temperature 98.2 F Pulse Rate 96 92 Respiratory Rate 14 Blood Pressure 132/50 L Pulse Oximetry 93 Oxygen Delivery Room Air 01/24/25 20:48 01/24/25 21:10 01/24/25 22:39 Temperature 98.6 F Pulse Rate 90 80 Respiratory Rate 20 Blood Pressure 167/76 H Pulse Oximetry 90 90 Oxygen Delivery Autopap 01/25/25 04:21 01/25/25 08:00 Temperature 98.8 F 98.4 F Pulse Rate 88 88 Respiratory Rate 20 16 Blood Pressure 154/68 H 172/70 H Pulse Oximetry 92 91 Oxygen Delivery Intake/Output Intake/Output: Intake & Output 01/22/25 01/23/25 01/24/25 01/25/25 23:59 23:59 23:59 23:59 Intake Total 1360 2050 2581.3 1275 Output Total 650 1400 850 300 Balance 254 656 3487.3 975 Meds/Results Medications: Active Medications Generic Name Dose Route Start Last Admin Trade Name Freq PRN Reason Stop Dose Admin Acetaminophen 500 mg 01/20/25 22:19 Acetaminophen 500 Mg Tablet PO Q6H PRN Mild Pain (1-3) or Fever Hydrocodone Bitart/Acetaminophen 1 tab 01/20/25 22:19 01/24/25 18:20 Hydrocodone/Acetaminophen (*Crx) 10-325 Mg Tablet PO 1 tab Q4H PRN Administration Pain Rated 4-6 Carvedilol 50 mg 01/21/25 09:00 01/24/25 22:39 Carvedilol 25 Mg Tablet PO 50 mg Q12HR KADEN Administration Clonidine HCl 0.2 mg 01/23/25 09:00 01/24/25 22:39 Clonidine Hcl 0.2 Mg Tablet PO 0.2 mg Q12HR KADEN Administration Dextrose 12.5 gm 01/21/25 00:35 Dextrose 50% 25 Gm/50 Ml Syringe IV PUSH PRN PRN Hypoglycemia Protocol Furosemide 20 mg 01/23/25 09:00 01/23/25 12:43 Furosemide 20 Mg Tablet PO 20 mg QAM KADEN Administration Gabapentin 300 mg 01/22/25 13:00 01/24/25 17:23 Gabapentin 300 Mg Capsule PO 300 mg TID KADEN Administration Glucose 15 gm 01/21/25 00:35 Glucose Oral Gel 15 Gm Of Glucse In 37.5 Gm Tube PO PRN PRN Hypoglycemia Protocol Hydromorphone HCl 0.5 mg 01/23/25 12:57 Hydromorphone Hcl Inj (*Crx) 1 Mg/Ml Syr IV PUSH Q3H PRN Pain Rated 7-10 Hydroxyzine HCl 50 mg 01/22/25 10:00 Hydroxyzine Hcl 50 Mg/Ml Vial IM Q4H PRN Itching Dextrose 1,000 mls @ 100 mls/hr 01/21/25 00:35 Dextrose 5% 1,000 Ml IVPB PRN PRN Hypoglycemia Protocol Sodium Chloride 1,000 mls @ 75 mls/hr 01/22/25 10:00 01/25/25 07:33 Normal Saline Iv IV CONT 75 mls/hr .[id number] KADEN Administration Insulin Aspart 2 - 5 units 01/25/25 08:00 Insulin Aspart (*Bkc) 100 Units/Ml SUB-Q TIDWM KADEN Protocol Insulin Aspart 1 - 2 units 01/24/25 22:34 01/24/25 22:41 Insulin Aspart (*Bkc) 100 Units/Ml SUB-Q 1 units HS KADEN Administration Protocol Insulin Glargine 28 units 01/24/25 21:00 01/24/25 22:41 Insulin Glargine (*Bkc) 100 Units/Ml SUB-Q 28 units HS KADEN Administration Melatonin 10 mg 01/21/25 00:34 01/23/25 20:38 Melatonin 5 Mg Tablet PO 10 mg HS PRN Administration Sleep Naloxone HCl 0.1 mg 01/21/25 14:51 Naloxone Hcl 0.4 Mg/Ml Vial IV PUSH Q5MIN PRN Opioid Reversal Naloxone HCl 0.1 mg 01/22/25 10:00 Naloxone Hcl 0.4 Mg/Ml Vial IV PUSH Q2M PRN Opiate Reversal Ondansetron HCl 4 mg 01/22/25 05:54 01/22/25 20:33 Ondansetron Inj 4 Mg/2 Ml Vial IV PUSH 4 mg Q6H PRN Administration Nausea And Vomiting Pantoprazole Sodium 40 mg 01/21/25 21:00 01/24/25 22:39 Pantoprazole 40 Mg Tablet PO 40 mg HS KADEN Administration Polyethylene Glycol 17 gm 01/23/25 09:00 01/24/25 10:00 Polyethylene Glycol 3350 17 Gm Powd.Pack PO Not Given QAM KADEN Rivaroxaban 10 mg 01/22/25 17:00 01/24/25 17:24 Rivaroxaban 10 Mg Tablet PO 02/25/25 17:01 10 mg DAILY@17 KADEN Administration Senna/Docusate Sodium 2 tab 01/22/25 17:00 01/24/25 17:24 Senna/Docusate Sodium Tablet PO 2 tab BID KADEN Administration Sertraline HCl 150 mg 01/23/25 21:00 01/24/25 22:41 Sertraline Hcl 50 Mg Tablet PO 150 mg HS KADEN Administration Spironolactone 25 mg 01/23/25 09:00 01/23/25 12:44 Spironolactone 25 Mg Tablet PO 25 mg DAILY KADEN Administration Radiology Results: ITS Impressions Lumbar Spine CT 01/20/25 19:50 IMPRESSION: 1. No acute abnormality of the cervical spine. 2: Severe lumbar spondylosis. Pelvis CT 01/20/25 19:53 IMPRESSION: 1. Minimally displaced right femoral subcapital fracture. Hip/Pelvis X-Ray 01/20/25 20:36 Impression: 1: Right femoral subcapital fracture. Chest X-Ray 01/20/25 20:37 IMPRESSION: 1: NO ACUTE CARDIOPULMONARY DISEASE. Intraoperative X-Ray 01/23/25 08:02 IMPRESSION: 1. Lag screw fixation of subcapital fracture of the proximal right femur which remains in near anatomic alignment. Labs Labs: Laboratory Results - last 24 hr 01/24/25 01/24/25 01/24/25 11:50 17:11 20:41 WBC RBC Hgb Hct MCV MCH MCHC RDW Plt Count MPV Sodium Potassium Chloride Carbon Dioxide Anion Gap BUN Creatinine Estim Creat Clear Calc Estimated GFR Glucose POC Capillary Glucose 206 H 288 H 279 H Calcium Total Bilirubin AST ALT Alkaline Phosphatase Total Protein Albumin 01/25/25 01/25/25 04:34 07:52 WBC 8.7 RBC 3.16 L Hgb 8.8 L Hct 27.8 L MCV 88.0 MCH 27.8 MCHC 31.7 L RDW 13.8 Plt Count 147 L MPV 10.0 Sodium 133 L Potassium 4.1 Chloride 105 Carbon Dioxide 23 Anion Gap 5 BUN 36 H Creatinine 0.99 Estim Creat Clear Calc 38 Estimated GFR 54 L Glucose 257 H POC Capillary Glucose 244 H Calcium 7.9 L Total Bilirubin 0.3 AST 48 H ALT 25 Alkaline Phosphatase 130 H Total Protein 5.9 L Albumin 2.9 L Quality VTE Prophylaxis VTE prophylaxis: pharmacologic ordered
[2025-01-25 08:29] VITALS: PULSE 88; RESP 16; O2SAT 91
[2025-01-25] MEDS: GABAPENTIN 300 MG CAPSULE PO ×3 (08:29→16:51)
[2025-01-25] MEDS: SPIRONOLACTONE 25 MG TABLET PO (08:29)
[2025-01-25] MEDS: FUROSEMIDE 20 MG TABLET PO (08:29)
[2025-01-25] MEDS: HYDROcodone/acetaminophen (*CRX) 10-325 MG TABLET 1 TAB PO (09:42)
[2025-01-25] MEDS: HYDROmorphone HCL INJ (*CRX) 1 MG/ML SYR 0.5 MG IV PUSH (10:44)
[2025-01-25 11:36] VITALS: BMI 10.0
[2025-01-25] MEDS: CYCLOBENZAPRINE HCL 10 MG TABLET PO ×2 (12:03→21:24)
[2025-01-25 13:54] VITALS: BP 132/55; PULSE 86; RESP 12; TEMP 36.7; O2SAT 96
--- NOTE | 2025-01-25 15:05 | PCOTNOTE ---
Attempted to see Patient this afternoon. Patient refused to participate, stated she had already done it, no more today.
[2025-01-25] MEDS: SENNA/DOCUSATE SODIUM TABLET 2 TAB PO (16:51)
[2025-01-25] MEDS: RIVAROXABAN 10 MG TABLET PO (16:51)
[2025-01-25 20:08] VITALS: BP 139/51; PULSE 87; RESP 18; TEMP 36.9; O2SAT 94
[2025-01-25] MEDS: SERTRALINE HCL 50 MG TABLET 150 MG PO (21:23)
[2025-01-25 21:25] VITALS: PULSE 87
[2025-01-25] MEDS: PANTOPRAZOLE 40 MG TABLET PO (21:25)
[2025-01-25] MEDS: INSULIN GLARGINE (*BKC) 100 UNITS/ML 28 UNITS SUB-Q (21:25)
[2025-01-26 04:52] LABS: Hematocrit 28.0 % (37.0-47.0); Hemoglobin 8.7 g/dL (12.0-15.0); Mean Corpuscular HGB Conc 31.1 g/dl (32-36); Mean Corpuscular Hemoglobin 27.9 pg (26-34); Mean Corpuscular Volume 89.7 fl (80-100); Platelet Count Result 171 k/mm3 (150-375); Red Blood Count 3.12 M/mm3 (4.2-5.4); White Blood Count 8.4 K/mm3 (4.5-10.0)
[2025-01-26 05:01] VITALS: BP 148/64; PULSE 74; RESP 18; TEMP 36.4; O2SAT 91
[2025-01-26 05:05] LABS: Alanine Aminotransferase 22 U/L (6-35); Albumin Level 3.0 g/dL (3.5-5.1); Alkaline Phosphatase 112 U/L (38-126); Anion Gap 6 mmol/L (4-12); Aspartate Amino Transferase 37 U/L (14-36); Bilirubin,Total 0.3 mg/dL (0.2-1.3); Blood Urea Nitrogen 32 mg/dL (7-17); Calcium 8.0 mg/dL (8.4-10.2); Carbon Dioxide 21 mmol/L (22-30); Chloride 105 mmol/L (98-107); Estimated CRCL calculation 40 ml/min; Estimated Glomerular Filt Rate 55; Glucose 250 mg/dL (65-110); Potassium 4.0 mmol/L (3.4-5.0); Sodium 132 mmol/L (137-145); Total Protein 5.8 g/dL (6.3-8.2)
[2025-01-26 08:24] VITALS: PULSE 74
[2025-01-26] MEDS: GABAPENTIN 300 MG CAPSULE PO ×3 (08:24→16:05)
[2025-01-26] MEDS: SPIRONOLACTONE 25 MG TABLET PO (08:25)
[2025-01-26] MEDS: FUROSEMIDE 20 MG TABLET PO (08:25)
--- NOTE | 2025-01-26 08:48 | P.PNIM_ITS ---
Progress Note: A&P Assessment and Plan (1) Fall from ground level: Code(s): W18.30XA - Fall on same level, unspecified, initial encounter Status: Acute Assessment and Plan: Mechanical ground level fall, denies head strike and LOC. Denies dizziness or lightheadedness prior to fall. Denies seizure like activity. Uses a walker and a cane at baseline - No signs of infection, WBC WNL and remains afebrile - Chest XR: Unremarkable - Hip/pelvis XR: Right femoral subcapital fracture - Pelvis CT: Minimally displaced right femoral subcapital fracture - Lumbar spine CT: severe lumbar spondylosis - See plan below for right femoral subcapital fracture pain control pt/ot placement pending-anticipate discharge in the next day or two. (2) Closed subcapital fracture of neck of right femur: Qualifiers: Encounter type: subsequent encounter Fracture healing: with routine he aling Qualified Code(s): S72.011D - Unspecified intracapsular fracture of right femur, subsequent encounter for closed fracture with routine healing Code(s): S72.011A - Unspecified intracapsular fracture of right femur, initial encounter for closed fracture Status: Acute Assessment and Plan: Hip/pelvis XR: Right femoral subcapital fracture Pelvis CT: Minimally displaced right femoral subcapital fracture Analgesics: Tylenol, [place], Dilaudid p.r.n. Given narcotic use and prior hypoxia, patient to remain on continuous pulse ox and narcan PRN ordered for opioid reversal. saturations remains stable on room air DVT ppx: SCD and xarelto Diet: diabetic diet Incentive spirometer Carey in place for immobility, remove when appropriate PT/OT per ortho recommendations weight bearing as tolerated recommending SNF placement Ortho consulted s/p right hip pinning 01/[address] Page attempt to mobilize with therapy plan for discharge to [facility] (3) Hypertension: Qualifiers: Hypertension type: unspecified Qualified Code(s): I10 - Essential (primary) hypertension Code(s): I10 - Essential (primary) hypertension Status: Acute Assessment and Plan: Chronic, continue home medication - carvedilol 50 mg BID - clonidine 0.2 mg BID - lasix 20 mg daily - spironolactone 25 mg daily - blood pressures reviewed and remain stable, continue to monitor (4) Heart failure, type unknown: Code(s): I50.9 - Heart failure, unspecified Status: Acute Assessment and Plan: Chronic, does not appear in acute exacerbation Echo 11/02/2024: LVEF 60-65% with grade I diastolic dysfunction Monitor volume status Daily weights Monitor I/O Remains euvolemic on exam. (5) Insulin dependent diabetes mellitus: Status: Acute Assessment and Plan: - hypoglycemia protocol - POC blood glucose ACHS - home medication - ozempic 2 mg weekly, tresiba 36 units HS, lispro 8 units TIDWM - correct regimen ordered - SSI, started on lantus 28 units (20% home dose) - A1C 9 on 10/31/24 Glucose elevated into the 200s since resuming diet. Will resume long acting insulin and continue to monitor. (6) Major depressive disorder: Qualifiers: Active/Remission status: currently active Major depression episode severity: severe Major depression recurrence: recurrent Psychotic features: without psychotic features Qualified Code(s): F33.2 - Major depressive disorder, recurrent severe without psychotic features Code(s): F32.9 - Major depressive disorder, single episode, unspecified Status: Acute Assessment and Plan: Long history of depression and anxiety Evaluated by psychiatry Sertraline increased to 150 mg daily Encourage medication compliance, patient manages her own medications at home. Recommend psychotherapy to address family conflicts and coping strategies Educate patient on importance of med adherence and potential benefits of dose increase Discuss option of restricting visitors at care facility if desired by patient Encourage physical activity and participation in post-operative rehabilitation to facilitate return to care facility Time Spent With Patient Time with patient: 25 - 35 minutes Subjective Date/time seen: 01/26/25 08:48 Interval history: 84-year-old female with past medical history of gout, anemia, osteoarthritis, GERD, CKD, hyperlipidemia, hypertension, insulin-dependent diabetes mellitus, and heart failure presents to the hospital with a ground level fall. Assuming care. Pt is seen and examined. Patient is lying in bed. She remains AOx4 and on room air with stable saturations. Patient has no complaints denying chest pain, palpitations, shortness of breath, nausea/vomiting and abdominal pain. Patient endorsing slight pain to the hip, discussed with her that when she is in pain she is to tell the nurse and a pain regimen is in place for her. She states understanding. Again encouraged patient to work with PT/OT today as tolerated as she still wishes to return to [facility] on discharge. She states she will try. Pt is seen and examined. She is able to work with pt/ot for a little bit. Added Flexeril helped with pain. Pending placement. 01/26- pt is seen and examined. she is a little more restless today but unable to communicate if pain or other concerns. Appears comfortable when examined. Care coordination following for placement-anticipate discharge in the next day or two once pain control is established with PO meds. Review of Systems Review of Systems: All systems reviewed & are unremarkable except as noted in HPI and below Exam Narrative: AF HR 74 RR 18 Spo2 91 BP 146/64 General: female in no acute respiratory distress who is nontoxic appearing, lying semi recumbent in bed. HEENT: Normocephalic. Atraumatic. Extraocular movement intact. Sclera clear and anicteric. No facial asymmetry. Chest: Lungs are clear to auscultation bilaterally. CV: Heart was regular rate and rhythm. Abd: Abdomen was soft. Nontender. Nondistended. Positive bowel sounds. Ext: No clubbing, cyanosis, or edema. Slight swelling to the right hip with clean/dry/and intact dressing. DP pulses bilaterally. Sensation intact. Wiggling toes. Neuro: Patient is alert and oriented x4. Speech is clear. Const: General: comfortable and no acute distress HENMT: Mouth: Yes dry mucous membranes Eyes: Pupils: Equal, round and reactive pupils present Neck: Neck: supple Resp: Effort & Inspection: normal respiratory effort Other: Mild bibasilar crackles Cardio: Rate: regular rate Rhythm: regular rhythm Heart sounds: no gallops, no murmurs and no rubs GI: Inspection: non-distended : General: Yes bladder normal to palpation Bimanual exam- vagina & uterus: bladder normal to palpation Neuro: Cranial nerves: Yes Equal, round and reactive pupils present Other: Motion of the right lower extremity limited by pain at the right hip Extrem: General: no edema Objective Data Vital Signs Vital Signs: Vital Signs - 24 hr 01/25/25 13:54 01/25/25 20:00 01/25/25 20:08 Temperature 98.0 F 98.5 F Pulse Rate 86 87 Respiratory Rate 12 18 Blood Pressure 132/55 L 139/51 L Pulse Oximetry 96 94 Oxygen Delivery Room Air 01/25/25 21:25 01/26/25 05:01 01/26/25 08:24 Temperature 97.6 F Pulse Rate 87 74 74 Respiratory Rate 18 Blood Pressure 148/64 H Pulse Oximetry 91 Oxygen Delivery Intake/Output Intake/Output: Intake & Output 01/23/25 01/24/25 01/25/25 01/26/25 23:59 23:59 23:59 23:59 Intake Total 2050 2581.3 2751 240 Output Total 1400 850 850 600 Balance 650 1731.3 1901 -360 Meds/Results Medications: Active Medications Generic Name Dose Route Start Last Admin Trade Name Freq PRN Reason Stop Dose Admin Acetaminophen 500 mg 01/20/25 22:19 Acetaminophen 500 Mg Tablet PO Q6H PRN Mild Pain (1-3) or Fever Hydrocodone Bitart/Acetaminophen 1 tab 01/20/25 22:19 01/25/25 09:42 Hydrocodone/Acetaminophen (*Crx) 10-325 Mg Tablet PO 1 tab Q4H PRN Administration Pain Rated 4-6 Carvedilol 50 mg 01/21/25 09:00 01/26/25 08:24 Carvedilol 25 Mg Tablet PO 50 mg Q12HR KADEN Administration Clonidine HCl 0.2 mg 01/23/25 09:00 01/26/25 08:25 Clonidine Hcl 0.2 Mg Tablet PO 0.2 mg Q12HR KADEN Administration Cyclobenzaprine HCl 10 mg 01/25/25 11:34 01/25/25 21:24 Cyclobenzaprine Hcl 10 Mg Tablet PO 10 mg Q8H PRN Administration Muscle Spasm Dextrose 12.5 gm 01/21/25 00:35 Dextrose 50% 25 Gm/50 Ml Syringe IV PUSH PRN PRN Hypoglycemia Protocol Furosemide 20 mg 01/23/25 09:00 01/26/25 08:25 Furosemide 20 Mg Tablet PO 20 mg QAM KADEN Administration Gabapentin 300 mg 01/22/25 13:00 01/26/25 08:24 Gabapentin 300 Mg Capsule PO 300 mg TID KADEN Administration Glucose 15 gm 01/21/25 00:35 Glucose Oral Gel 15 Gm Of Glucse In 37.5 Gm Tube PO PRN PRN Hypoglycemia Protocol Hydromorphone HCl 0.5 mg 01/23/25 12:57 01/25/25 10:44 Hydromorphone Hcl Inj (*Crx) 1 Mg/Ml Syr IV PUSH 0.5 mg Q3H PRN Administration Pain Rated 7-10 Hydroxyzine HCl 50 mg 01/22/25 10:00 Hydroxyzine Hcl 50 Mg/Ml Vial IM Q4H PRN Itching Dextrose 1,000 mls @ 100 mls/hr 01/21/25 00:35 Dextrose 5% 1,000 Ml IVPB PRN PRN Hypoglycemia Protocol Insulin Aspart 2 - 5 units 01/25/25 08:00 01/26/25 08:23 Insulin Aspart (*Bkc) 100 Units/Ml SUB-Q Not Given TIDWM KADEN Protocol Insulin Aspart 1 - 2 units 01/24/25 22:34 01/25/25 21:25 Insulin Aspart (*Bkc) 100 Units/Ml SUB-Q 1 units HS KADEN Administration Protocol Insulin Glargine 28 units 01/24/25 21:00 01/25/25 21:25 Insulin Glargine (*Bkc) 100 Units/Ml SUB-Q 28 units HS KADEN Administration Melatonin 10 mg 01/21/25 00:34 01/23/25 20:38 Melatonin 5 Mg Tablet PO 10 mg HS PRN Administration Sleep Naloxone HCl 0.1 mg 01/21/25 14:51 Naloxone Hcl 0.4 Mg/Ml Vial IV PUSH Q5MIN PRN Opioid Reversal Naloxone HCl 0.1 mg 01/22/25 10:00 Naloxone Hcl 0.4 Mg/Ml Vial IV PUSH Q2M PRN Opiate Reversal Ondansetron HCl 4 mg 01/22/25 05:54 01/22/25 20:33 Ondansetron Inj 4 Mg/2 Ml Vial IV PUSH 4 mg Q6H PRN Administration Nausea And Vomiting Pantoprazole Sodium 40 mg 01/21/25 21:00 01/25/25 21:25 Pantoprazole 40 Mg Tablet PO 40 mg HS KADEN Administration Polyethylene Glycol 17 gm 01/23/25 09:00 01/26/25 08:25 Polyethylene Glycol 3350 17 Gm Powd.Pack PO Not Given QAM KADEN Rivaroxaban 10 mg 01/22/25 17:00 01/25/25 16:51 Rivaroxaban 10 Mg Tablet PO 02/25/25 17:01 10 mg DAILY@17 KADEN Administration Senna/Docusate Sodium 2 tab 01/22/25 17:00 01/26/25 08:25 Senna/Docusate Sodium Tablet PO Not Given BID KADEN Sertraline HCl 150 mg 01/23/25 21:00 01/25/25 21:23 Sertraline Hcl 50 Mg Tablet PO 150 mg HS KADEN Administration Spironolactone 25 mg 01/23/25 09:00 01/26/25 08:25 Spironolactone 25 Mg Tablet PO 25 mg DAILY KADEN Administration Radiology Results: ITS Impressions Lumbar Spine CT 01/20/25 19:50 IMPRESSION: 1. No acute abnormality of the cervical spine. 2: Severe lumbar spondylosis. Pelvis CT 01/20/25 19:53 IMPRESSION: 1. Minimally displaced right femoral subcapital fracture. Hip/Pelvis X-Ray 01/20/25 20:36 Impression: 1: Right femoral subcapital fracture. Chest X-Ray 01/20/25 20:37 IMPRESSION: 1: NO ACUTE CARDIOPULMONARY DISEASE. Intraoperative X-Ray 01/23/25 08:02 IMPRESSION: 1. Lag screw fixation of subcapital fracture of the proximal right femur which remains in near anatomic alignment. Labs Labs: Laboratory Results - last 24 hr 01/25/25 01/25/25 01/25/25 11:22 16:48 20:08 WBC RBC Hgb Hct MCV MCH MCHC RDW Plt Count MPV Sodium Potassium Chloride Carbon Dioxide Anion Gap BUN Creatinine Estim Creat Clear Calc Estimated GFR Glucose POC Capillary Glucose 276 H 225 H 281 H Calcium Total Bilirubin AST ALT Alkaline Phosphatase Total Protein Albumin 01/26/25 01/26/25 04:11 07:35 WBC 8.4 RBC 3.12 L Hgb 8.7 L Hct 28.0 L MCV 89.7 MCH 27.9 MCHC 31.1 L RDW 13.9 Plt Count 171 MPV 10.2 Sodium 132 L Potassium 4.0 Chloride 105 Carbon Dioxide 21 L Anion Gap 6 BUN 32 H Creatinine 0.97 Estim Creat Clear Calc 40 Estimated GFR 55 L Glucose 250 H POC Capillary Glucose 188 H Calcium 8.0 L Total Bilirubin 0.3 AST 37 H ALT 22 Alkaline Phosphatase 112 Total Protein 5.8 L Albumin 3.0 L Quality VTE Prophylaxis VTE prophylaxis: pharmacologic ordered
[2025-01-26 09:30] VITALS: BMI 10.0
--- NOTE | 2025-01-26 09:31 | PM.PNORT ---
Progress Note: A&P Assessment and Plan (1) Closed subcapital fracture of neck of right femur: Qualifiers: Encounter type: subsequent encounter Fracture healing: with routine healing Qualified Code(s): S72.011D - Unspecified intracapsular fracture of right femur, subsequent encounter for closed fracture with routine healing Code(s): S72.011A - Unspecified intracapsular fracture of right femur, initial encounter for closed fracture Status: Acute Assessment and Plan: POD #4: Right hip pinning. Right leg exam benign and neurovascularly intact. Incision c/d/i. Reviewed the risks, benefits and alternatives of treatment. Mobilize with therapy. Psych consult reviewed. Plan for follow up once discharge planning is complete. Plan Reviewed history, exam, radiographs and current labs with attending MD and covering surgeon, Dr. Page, who agrees with current plan as indicated above. No further recommendations from Dr. Page at this time. Subjective Subjective Date/Time Seen: 01/26/25 09:31 Post Op day: 4 Principal diagnosis: right hip fracture Interval history: POD #4: CRPP Right Hip Complains of right hip pain. Does not want me to touch her. Review of Systems Review of Systems: All systems reviewed & are unremarkable except as noted in HPI and below Exam Const: General: No confusion Orientation/consciousness: patient oriented x3 and No confusion Resp: Effort & Inspection: normal respiratory effort and no audible wheezes Skin: General skin exam: no rashes or lesions noted Neuro: General: patient oriented x3 and No confusion Extrem: General: capillary refill normal Right upper extremity: normal to inspection Left upper extremity: normal to inspection Right lower extremity: hip/thigh Details: tenderness Location: of the hip Location: laterally, swelling Location: at the hip ( mild) and other ( Dressing clean dry and intact. No erythema. Muscles soft.), ankle ( able to actively flex and extend ankle) Details: no tenderness and foot Details: normal capillary refill, toes with normal ROM, vascular exam Details: dorsalis pedis pulse present and normal capillary refill and motor-sensory exam Details: light-touch normal Location: in all toes; no tenderness Left lower extremity: normal to inspection, hip/thigh Details: no tenderness and no swelling, lower leg, ankle (no calf tenderness) Details: normal ROM; no tenderness and foot Details: normal capillary refill, vascular exam Details: dorsalis pedis pulse present and normal capillary refill and motor-sensory exam light-touch normal in all toes Psych: Affect: normal affect Objective Data Vital Signs Vital Signs: Vital Signs - 24 hr 01/25/25 13:54 01/25/25 20:00 01/25/25 20:08 Temperature 36.7 C 36.9 C Pulse Rate 86 87 Respiratory Rate 12 18 Blood Pressure 132/55 L 139/51 L Pulse Oximetry 96 94 Oxygen Delivery Room Air 01/25/25 21:25 01/26/25 05:01 01/26/25 08:24 Temperature 36.4 C Pulse Rate 87 74 74 Respiratory Rate 18 Blood Pressure 148/64 H Pulse Oximetry 91 Oxygen Delivery Intake/Output Intake/Output: Intake & Output 01/23/25 01/24/25 01/25/25 01/26/25 23:59 23:59 23:59 23:59 Intake Total 2050 2581.3 2751 240 Output Total 1400 850 850 600 Balance 650 1731.3 1901 -360 Meds/Results Medications: Active Medications Generic Name Dose Route Start Last Admin Trade Name Freq PRN Reason Stop Dose Admin Acetaminophen 500 mg 01/20/25 22:19 Acetaminophen 500 Mg Tablet PO Q6H PRN Mild Pain (1-3) or Fever Hydrocodone Bitart/Acetaminophen 1 tab 01/20/25 22:19 01/25/25 09:42 Hydrocodone/Acetaminophen (*Crx) 10-325 Mg Tablet PO 1 tab Q4H PRN Administration Pain Rated 4-6 Carvedilol 50 mg 01/21/25 09:00 01/26/25 08:24 Carvedilol 25 Mg Tablet PO 50 mg Q12HR KADEN Administration Clonidine HCl 0.2 mg 01/23/25 09:00 01/26/25 08:25 Clonidine Hcl 0.2 Mg Tablet PO 0.2 mg Q12HR KADEN Administration Cyclobenzaprine HCl 10 mg 01/25/25 11:34 01/25/25 21:24 Cyclobenzaprine Hcl 10 Mg Tablet PO 10 mg Q8H PRN Administration Muscle Spasm Dextrose 12.5 gm 01/21/25 00:35 Dextrose 50% 25 Gm/50 Ml Syringe IV PUSH PRN PRN Hypoglycemia Protocol Furosemide 20 mg 01/23/25 09:00 01/26/25 08:25 Furosemide 20 Mg Tablet PO 20 mg QAM KADEN Administration Gabapentin 300 mg 01/22/25 13:00 01/26/25 08:24 Gabapentin 300 Mg Capsule PO 300 mg TID KADEN Administration Glucose 15 gm 01/21/25 00:35 Glucose Oral Gel 15 Gm Of Glucse In 37.5 Gm Tube PO PRN PRN Hypoglycemia Protocol Hydromorphone HCl 0.5 mg 01/23/25 12:57 01/25/25 10:44 Hydromorphone Hcl Inj (*Crx) 1 Mg/Ml Syr IV PUSH 0.5 mg Q3H PRN Administration Pain Rated 7-10 Hydroxyzine HCl 50 mg 01/22/25 10:00 Hydroxyzine Hcl 50 Mg/Ml Vial IM Q4H PRN Itching Dextrose 1,000 mls @ 100 mls/hr 01/21/25 00:35 Dextrose 5% 1,000 Ml IVPB PRN PRN Hypoglycemia Protocol Insulin Aspart 2 - 5 units 01/25/25 08:00 01/26/25 08:23 Insulin Aspart (*Bkc) 100 Units/Ml SUB-Q Not Given TIDWM KADEN Protocol Insulin Aspart 1 - 2 units 01/24/25 22:34 01/25/25 21:25 Insulin Aspart (*Bkc) 100 Units/Ml SUB-Q 1 units HS KADEN Administration Protocol Insulin Glargine 28 units 01/24/25 21:00 01/25/25 21:25 Insulin Glargine (*Bkc) 100 Units/Ml SUB-Q 28 units HS KADEN Administration Melatonin 10 mg 01/21/25 00:34 01/23/25 20:38 Melatonin 5 Mg Tablet PO 10 mg HS PRN Administration Sleep Naloxone HCl 0.1 mg 01/21/25 14:51 Naloxone Hcl 0.4 Mg/Ml Vial IV PUSH Q5MIN PRN Opioid Reversal Naloxone HCl 0.1 mg 01/22/25 10:00 Naloxone Hcl 0.4 Mg/Ml Vial IV PUSH Q2M PRN Opiate Reversal Ondansetron HCl 4 mg 01/22/25 05:54 01/22/25 20:33 Ondansetron Inj 4 Mg/2 Ml Vial IV PUSH 4 mg Q6H PRN Administration Nausea And Vomiting Pantoprazole Sodium 40 mg 01/21/25 21:00 01/25/25 21:25 Pantoprazole 40 Mg Tablet PO 40 mg HS KADEN Administration Polyethylene Glycol 17 gm 01/23/25 09:00 01/26/25 08:25 Polyethylene Glycol 3350 17 Gm Powd.Pack PO Not Given QAM KADEN Rivaroxaban 10 mg 01/22/25 17:00 01/25/25 16:51 Rivaroxaban 10 Mg Tablet PO 02/25/25 17:01 10 mg DAILY@17 KADEN Administration Senna/Docusate Sodium 2 tab 01/22/25 17:00 01/26/25 08:25 Senna/Docusate Sodium Tablet PO Not Given BID KADEN Sertraline HCl 150 mg 01/23/25 21:00 01/25/25 21:23 Sertraline Hcl 50 Mg Tablet PO 150 mg HS KADEN Administration Spironolactone 25 mg 01/23/25 09:00 01/26/25 08:25 Spironolactone 25 Mg Tablet PO 25 mg DAILY KADEN Administration Radiology Results: ITS Impressions Lumbar Spine CT 01/20/25 19:50 IMPRESSION: 1. No acute abnormality of the cervical spine. 2: Severe lumbar spondylosis. Pelvis CT 01/20/25 19:53 IMPRESSION: 1. Minimally displaced right femoral subcapital fracture. Hip/Pelvis X-Ray 01/20/25 20:36 Impression: 1: Right femoral subcapital fracture. Chest X-Ray 01/20/25 20:37 IMPRESSION: 1: NO ACUTE CARDIOPULMONARY DISEASE. Intraoperative X-Ray 01/23/25 08:02 IMPRESSION: 1. Lag screw fixation of subcapital fracture of the proximal right femur which remains in near anatomic alignment. Labs Labs: Laboratory Results - last 24 hr 01/25/25 01/25/25 01/25/25 11:22 16:48 20:08 WBC RBC Hgb Hct MCV MCH MCHC RDW Plt Count MPV Sodium Potassium Chloride Carbon Dioxide Anion Gap BUN Creatinine Estim Creat Clear Calc Estimated GFR Glucose POC Capillary Glucose 276 H 225 H 281 H Calcium Total Bilirubin AST ALT Alkaline Phosphatase Total Protein Albumin 01/26/25 01/26/25 04:11 07:35 WBC 8.4 RBC 3.12 L Hgb 8.7 L Hct 28.0 L MCV 89.7 MCH 27.9 MCHC 31.1 L RDW 13.9 Plt Count 171 MPV 10.2 Sodium 132 L Potassium 4.0 Chloride 105 Carbon Dioxide 21 L Anion Gap 6 BUN 32 H Creatinine 0.97 Estim Creat Clear Calc 40 Estimated GFR 55 L Glucose 250 H POC Capillary Glucose 188 H Calcium 8.0 L Total Bilirubin 0.3 AST 37 H ALT 22 Alkaline Phosphatase 112 Total Protein 5.8 L Albumin 3.0 L
[2025-01-26] MEDS: INSULIN ASPART (*BKC) 100 UNITS/ML SUB-Q ×2 (12:29→20:24)
[2025-01-26] MEDS: CYCLOBENZAPRINE HCL 10 MG TABLET PO ×2 (13:53→23:03)
[2025-01-26 14:13] VITALS: BP 183/59; PULSE 80; RESP 18; TEMP 36.4; O2SAT 99
[2025-01-26] MEDS: RIVAROXABAN 10 MG TABLET PO (16:05)
[2025-01-26 20:12] VITALS: BP 181/66; PULSE 89; RESP 18; TEMP 37.2; O2SAT 94
[2025-01-26 20:23] VITALS: PULSE 89
[2025-01-26] MEDS: diazePAM (*CRX) 5 MG TABLET PO (20:23)
[2025-01-26] MEDS: SERTRALINE HCL 50 MG TABLET 150 MG PO (20:23)
[2025-01-26] MEDS: PANTOPRAZOLE 40 MG TABLET PO (20:23)
[2025-01-26 21:26] VITALS: O2SAT 93
[2025-01-26] MEDS: INSULIN GLARGINE (*BKC) 100 UNITS/ML 28 UNITS SUB-Q (21:42)
[2025-01-27] MEDS: HYDROcodone/acetaminophen (*CRX) 10-325 MG TABLET 1 TAB PO ×3 (01:21→16:18)
[2025-01-27 04:58] VITALS: BP 155/66; PULSE 72; RESP 18; TEMP 36.4; O2SAT 96
[2025-01-27 05:38] LABS: Magnesium 2.0 mg/dL (1.6-2.3)
[2025-01-27 08:00] VITALS: O2SAT 96
[2025-01-27] MEDS: GABAPENTIN 300 MG CAPSULE PO ×3 (08:43→16:18)
[2025-01-27] MEDS: SPIRONOLACTONE 25 MG TABLET PO (08:43)
[2025-01-27 08:44] VITALS: PULSE 70
[2025-01-27] MEDS: FUROSEMIDE 20 MG TABLET PO (08:44)
--- NOTE | 2025-01-27 09:18 | PM.IMPN ---
Progress Note: A&P Assessment and Plan (1) Fall from ground level: Code(s): W18.30XA - Fall on same level, unspecified, initial encounter Status: Acute Assessment and Plan: Mechanical ground level fall, denies head strike and LOC. Denies dizziness or lightheadedness prior to fall. Denies seizure like activity. Uses a walker and a cane at baseline - No signs of infection, WBC WNL and remains afebrile - Chest XR: Unremarkable - Hip/pelvis XR: Right femoral subcapital fracture - Pelvis CT: Minimally displaced right femoral subcapital fracture - Lumbar spine CT: severe lumbar spondylosis - See plan below for right femoral subcapital fracture pain control pt/ot placement pending-anticipate discharge in the next day or two. discussion with family- pt and daughterFaye want to proceed with hospice care -care coordination notified (2) Closed subcapital fracture of neck of right femur: Qualifiers: Encounter type: subsequent encounter Fracture healing: with routine healing Qualified Code(s): S72.011D - Unspecified intracapsular fracture of right femur, subsequent encounter for closed fracture with routine healing Code(s): S72.011A - Unspecified intracapsular fracture of right femur, initial encounter for closed fracture Status: Acute Assessment and Plan: Hip/pelvis XR: Right femoral subcapital fracture Pelvis CT: Minimally displaced right femoral subcapital fracture Analgesics: Tylenol, [place], Dilaudid p.r.n. Given narcotic use and prior hypoxia, patient to remain on continuous pulse ox and narcan PRN ordered for opioid reversal. saturations remains stable on room air DVT ppx: SCD and xarelto Diet: diabetic diet Incentive spirometer Carey in place for immobility, remove when appropriate PT/OT per ortho recommendations weight bearing as tolerated recommending SNF placement Ortho consulted s/p right hip pinning 01/[address] Page attempt to mobilize with therapy plan for discharge to hospice now (3) Hypertension: Qualifiers: Hypertension type: unspecified Qualified Code(s): I10 - Essential (primary) hypertension Code(s): I10 - Essential (primary) hypertension Status: Acute Assessment and Plan: Chronic, continue home medication - carvedilol 50 mg BID - clonidine 0.2 mg BID - lasix 20 mg daily - spironolactone 25 mg daily - blood pressures reviewed and remain stable, continue to monitor (4) Heart failure, type unknown: Code(s): I50.9 - Heart failure, unspecified Status: Acute Assessment and Plan: Chronic, does not appear in acute exacerbation Echo 11/02/2024: LVEF 60-65% with grade I diastolic dysfunction Monitor volume status Daily weights Monitor I/O Remains euvolemic on exam. (5) Insulin dependent diabetes mellitus: Status: Acute Assessment and Plan: - hypoglycemia protocol - POC blood glucose ACHS - home medication - ozempic 2 mg weekly, tresiba 36 units HS, lispro 8 units TIDWM - correct regimen ordered - SSI, started on lantus 28 units (20% home dose) - A1C 9 on 10/31/24 Glucose elevated into the 200s since resuming diet. Will resume long acting insulin and continue to monitor. (6) Major depressive disorder: Qualifiers: Major depression recurrence: recurrent Active/Remission status: currently active Major depression episode severity: severe Psychotic features: without psychotic features Qualified Code(s): F33.2 - Major depressive disorder, recurrent severe without psychotic features Code(s): F32.9 - Major depressive disorder, single episode, unspecified Status: Acute Assessment and Plan: Long history of depression and anxiety Evaluated by psychiatry Sertraline increased to 150 mg daily Encourage medication compliance, patient manages her own medications at home. Recommend psychotherapy to address family conflicts and coping strategies Educate patient on importance of med adherence and potential benefits of dose increase Discuss option of restricting visitors at care facility if desired by patient Encourage physical activity and participation in post-operative rehabilitation to facilitate return to care facility Plan Discussed place of care with RN, Daughter, Faye, care coordination. Time Spent With Patient Time with patient: Greater than 35 minutes Subjective Date/time seen: 01/27/25 09:18 Interval history: 84-year-old female with past medical history of gout, anemia, osteoarthritis, GERD, CKD, hyperlipidemia, hypertension, insulin-dependent diabetes mellitus, and heart failure presents to the hospital with a ground level fall. Assuming care. Pt is seen and examined. Patient is lying in bed. She remains AOx4 and on room air with stable saturations. Patient has no complaints denying chest pain, palpitations, shortness of breath, nausea/vomiting and abdominal pain. Patient endorsing slight pain to the hip, discussed with her that when she is in pain she is to tell the nurse and a pain regimen is in place for her. She states understanding. Again encouraged patient to work with PT/OT today as tolerated as she still wishes to return to [facility] on discharge. She states she will try. Pt is seen and examined. She is able to work with pt/ot for a little bit. Added Flexeril helped with pain. Pending placement. 01/26- pt is seen and examined. she is a little more restless today but unable to communicate if pain or other concerns. Appears comfortable when examined. Care coordination following for placement-anticipate discharge in the next day or two once pain control is established with PO meds. 01/27 acute pain overnight, was given IV valium. Discussed care with Faye, daughter. 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 to go with comfort/hospice care. pt was more herself last night when she had this discussion with Faye. Faye already called care coordination and informed them as well. Will collect ua to ensure no uti and proceed with comfort measures/hospice. Review of Systems Review of Systems: All systems reviewed & are unremarkable except as noted in HPI and below Exam Narrative: AF HR 74 RR 18 Spo2 91 BP 146/64 General: female in no acute respiratory distress who is nontoxic appearing, lying semi recumbent in bed. HEENT: Normocephalic. Atraumatic. Extraocular movement intact. Sclera clear and anicteric. No facial asymmetry. Chest: Lungs are clear to auscultation bilaterally. CV: Heart was regular rate and rhythm. Abd: Abdomen was soft. Nontender. Nondistended. Positive bowel sounds. Ext: No clubbing, cyanosis, or edema. Slight swelling to the right hip with clean/dry/and intact dressing. DP pulses bilaterally. Sensation intact. Wiggling toes. Neuro: Patient is alert and oriented x4. Speech is clear. Const: General: comfortable and no acute distress HENMT: Mouth: Yes dry mucous membranes Eyes: Pupils: Equal, round and reactive pupils present Neck: Neck: supple Resp: Effort & Inspection: normal respiratory effort Other: Mild bibasilar crackles Cardio: Rate: regular rate Rhythm: regular rhythm Heart sounds: no gallops, no murmurs and no rubs GI: Inspection: non-distended : General: Yes bladder normal to palpation Bimanual exam- vagina & uterus: bladder normal to palpation Neuro: Cranial nerves: Yes Equal, round and reactive pupils present Other: Motion of the right lower extremity limited by pain at the right hip Extrem: General: no edema Objective Data Vital Signs Vital Signs: Vital Signs - 24 hr 01/26/25 14:13 01/26/25 20:00 01/26/25 20:12 Temperature 97.6 F 99.0 F Pulse Rate 80 89 Respiratory Rate 18 18 Blood Pressure 183/59 H 181/66 H Pulse Oximetry 99 94 Oxygen Delivery Room Air 01/26/25 20:23 01/26/25 21:26 01/27/25 04:58 Temperature 97.6 F Pulse Rate 89 72 Respiratory Rate 18 Blood Pressure 155/66 H Pulse Oximetry 93 96 Oxygen Delivery Room Air 01/27/25 08:00 01/27/25 08:44 Temperature Pulse Rate 70 Respiratory Rate Blood Pressure Pulse Oximetry 96 Oxygen Delivery Room Air Intake/Output Intake/Output: Intake & Output 01/24/25 01/25/25 01/26/25 01/27/25 23:59 23:59 23:59 23:59 Intake Total 2581.3 2751 600 290 Output Total 953 457 5726 600 Balance 1731.3 2641 -610 -031 Meds/Results Medications: Active Medications Generic Name Dose Route Start Last Admin Trade Name Freq PRN Reason Stop Dose Admin Acetaminophen 500 mg 01/20/25 22:19 Acetaminophen 500 Mg Tablet PO Q6H PRN Mild Pain (1-3) or Fever Hydrocodone Bitart/Acetaminophen 1 tab 01/20/25 22:19 01/27/25 01:21 Hydrocodone/Acetaminophen (*Crx) 10-325 Mg Tablet PO 1 tab Q4H PRN Administration Pain Rated 4-6 Carvedilol 50 mg 01/21/25 09:00 01/27/25 08:44 Carvedilol 25 Mg Tablet PO 50 mg Q12HR KADEN Administration Clonidine HCl 0.2 mg 01/23/25 09:00 01/27/25 08:43 Clonidine Hcl 0.2 Mg Tablet PO 0.2 mg Q12HR KADEN Administration Cyclobenzaprine HCl 10 mg 01/25/25 11:34 01/26/25 23:03 Cyclobenzaprine Hcl 10 Mg Tablet PO 10 mg Q8H PRN Administration Muscle Spasm Dextrose 12.5 gm 01/21/25 00:35 Dextrose 50% 25 Gm/50 Ml Syringe IV PUSH PRN PRN Hypoglycemia Protocol Furosemide 20 mg 01/23/25 09:00 01/27/25 08:44 Furosemide 20 Mg Tablet PO 20 mg QAM KADEN Administration Gabapentin 300 mg 01/22/25 13:00 01/27/25 08:43 Gabapentin 300 Mg Capsule PO 300 mg TID KADEN Administration Glucose 15 gm 01/21/25 00:35 Glucose Oral Gel 15 Gm Of Glucse In 37.5 Gm Tube PO PRN PRN Hypoglycemia Protocol Hydromorphone HCl 0.5 mg 01/23/25 12:57 01/25/25 10:44 Hydromorphone Hcl Inj (*Crx) 1 Mg/Ml Syr IV PUSH 0.5 mg Q3H PRN Administration Pain Rated 7-10 Hydroxyzine HCl 50 mg 01/22/25 10:00 Hydroxyzine Hcl 50 Mg/Ml Vial IM Q4H PRN Itching Dextrose 1,000 mls @ 100 mls/hr 01/21/25 00:35 Dextrose 5% 1,000 Ml IVPB PRN PRN Hypoglycemia Protocol Insulin Aspart 2 - 5 units 01/25/25 08:00 01/27/25 08:42 Insulin Aspart (*Bkc) 100 Units/Ml SUB-Q Not Given TIDWM KADEN Protocol Insulin Aspart 1 - 2 units 01/24/25 22:34 01/26/25 20:24 Insulin Aspart (*Bkc) 100 Units/Ml SUB-Q 1 units HS KADEN Administration Protocol Insulin Glargine 28 units 01/24/25 21:00 01/26/25 21:42 Insulin Glargine (*Bkc) 100 Units/Ml SUB-Q 28 units HS KADEN Administration Melatonin 10 mg 01/21/25 00:34 01/23/25 20:38 Melatonin 5 Mg Tablet PO 10 mg HS PRN Administration Sleep Naloxone HCl 0.1 mg 01/21/25 14:51 Naloxone Hcl 0.4 Mg/Ml Vial IV PUSH Q5MIN PRN Opioid Reversal Naloxone HCl 0.1 mg 01/22/25 10:00 Naloxone Hcl 0.4 Mg/Ml Vial IV PUSH Q2M PRN Opiate Reversal Ondansetron HCl 4 mg 01/22/25 05:54 01/22/25 20:33 Ondansetron Inj 4 Mg/2 Ml Vial IV PUSH 4 mg Q6H PRN Administration Nausea And Vomiting Pantoprazole Sodium 40 mg 01/21/25 21:00 01/26/25 20:23 Pantoprazole 40 Mg Tablet PO 40 mg HS KADEN Administration Polyethylene Glycol 17 gm 01/23/25 09:00 01/27/25 08:44 Polyethylene Glycol 3350 17 Gm Powd.Pack PO Not Given QAM KADEN Rivaroxaban 10 mg 01/22/25 17:00 01/26/25 16:05 Rivaroxaban 10 Mg Tablet PO 02/25/25 17:01 10 mg DAILY@17 KADEN Administration Senna/Docusate Sodium 2 tab 01/22/25 17:00 01/27/25 08:44 Senna/Docusate Sodium Tablet PO Not Given BID KADEN Sertraline HCl 150 mg 01/23/25 21:00 01/26/25 20:23 Sertraline Hcl 50 Mg Tablet PO 150 mg HS KADEN Administration Spironolactone 25 mg 01/23/25 09:00 01/27/25 08:43 Spironolactone 25 Mg Tablet PO 25 mg DAILY KADEN Administration Radiology Results: ITS Impressions Lumbar Spine CT 01/20/25 19:50 IMPRESSION: 1. No acute abnormality of the cervical spine. 2: Severe lumbar spondylosis. Pelvis CT 01/20/25 19:53 IMPRESSION: 1. Minimally displaced right femoral subcapital fracture. Hip/Pelvis X-Ray 01/20/25 20:36 Impression: 1: Right femoral subcapital fracture. Chest X-Ray 01/20/25 20:37 IMPRESSION: 1: NO ACUTE CARDIOPULMONARY DISEASE. Intraoperative X-Ray 01/23/25 08:02 IMPRESSION: 1. Lag screw fixation of subcapital fracture of the proximal right femur which remains in near anatomic alignment. Labs Labs: Laboratory Results - last 24 hr 01/26/25 01/26/25 01/26/25 11:36 16:40 20:18 POC Capillary Glucose 256 H 196 H 256 H Magnesium 01/27/25 01/27/25 04:36 08:18 POC Capillary Glucose 166 H Magnesium 2.0 Quality VTE Prophylaxis VTE prophylaxis: pharmacologic ordered
[2025-01-27 09:45] VITALS: BMI 10.0
[2025-01-27 10:15] LABS: Add Urine Microscopic? YES; Appearance Urine Clear (Clear); Glucose Urine UA Negative (Negative); Leukocyte Esterase Ur 1+ LEU/UL (Negative); Need Manual Microscopic Reviewed; Nitrate Urine Negative (Negative); Specific Grav Ur 1.021 (1.001-1.035)
--- NOTE | 2025-01-27 10:39 | PCNWS ---
Weekly nutritional screen. Patient is tolerating current diet. Plans for comfort measures/hospice. No nutritional needs at this time.
--- NOTE | 2025-01-27 11:10 | PC.NURSE ---
Patient has consistently refused any turning throughout the past two shifts I have been her primary nurse. I have given her muscle relaxers PRN and she still refuses to cooperate. Wound team was consulted for potential area of pressure. Patient still refuses turns.
[2025-01-27] MEDS: CYCLOBENZAPRINE HCL 10 MG TABLET PO (11:34)
[2025-01-27] MEDS: INSULIN ASPART (*BKC) 100 UNITS/ML SUB-Q ×3 (12:25→21:35)
[2025-01-27 13:37] VITALS: BP 143/41; PULSE 80; RESP 20; TEMP 36.7; O2SAT 97
[2025-01-27] MEDS: RIVAROXABAN 10 MG TABLET PO (16:18)
--- NOTE | 2025-01-27 17:10 | WNDPHOTO ---
PHOTO ONLY - See Nursing Notes and/ or assessments for documentation.
[2025-01-27 20:36] VITALS: BP 145/55; PULSE 77; RESP 18; TEMP 36.7; O2SAT 94
[2025-01-27 21:32] VITALS: PULSE 77
[2025-01-27] MEDS: SERTRALINE HCL 50 MG TABLET 150 MG PO (21:33)
[2025-01-27] MEDS: PANTOPRAZOLE 40 MG TABLET PO (21:33)
[2025-01-27] MEDS: MELATONIN 5 MG TABLET 10 MG PO (21:34)
[2025-01-27] MEDS: INSULIN GLARGINE (*BKC) 100 UNITS/ML 28 UNITS SUB-Q (21:36)
[2025-01-28] MEDS: HYDROcodone/acetaminophen (*CRX) 10-325 MG TABLET 1 TAB PO ×2 (01:09→09:08)
[2025-01-28 03:53] VITALS: BP 133/60; PULSE 80; RESP 18; TEMP 36.6; O2SAT 91
--- NOTE | 2025-01-28 08:47 | P.DS_ITS ---
DS: Admitting Diagnosis Discharge Date 01/28 Admitting Diagnosis ground level fall DS: Discharge Diagnosis Discharge Diagnosis (1) Fall from ground level: Code(s): W18.30XA - Fall on same level, unspecified, initial encounter Status: Acute (2) Closed subcapital fracture of neck of right femur: Qualifiers: Encounter type: subsequent encounter Fracture healing: with routine healing Qualified Code(s): S72.011D - Unspecified intracapsular fracture of right femur, subsequent encounter for closed fracture with routine healing Code(s): S72.011A - Unspecified intracapsular fracture of right femur, initial encounter for closed fracture Status: Acute (3) Hypertension: Qualifiers: Hypertension type: unspecified Qualified Code(s): I10 - Essential (primary) hypertension Code(s): I10 - Essential (primary) hypertension Status: Acute (4) Heart failure, type unknown: Code(s): I50.9 - Heart failure, unspecified Status: Acute (5) Insulin dependent diabetes mellitus: Status: Acute (6) Major depressive disorder: Qualifiers: Major depression recurrence: recurrent Active/Remission status: currently active Major depression episode severity: severe Psychotic features: without psychotic features Qualified Code(s): F33.2 - Major depressive disorder, recurrent severe without psychotic features Code(s): F32.9 - Major depressive disorder, single episode, unspecified Status: Acute DS: Summary Hospital Course Hospital Course: 84-year-old female with PMH gout, anemia, osteoarthritis, GERD, CKD, hyperlipidemia, hypertension, insulin-dependent diabetes mellitus, heart failure presents to [facility] ER 01/20/2025 with a ground level fall. She is a resident at [facility] [place] assisted [facility] and at baseline uses a walker and a cane. She was walking on flat surface and went to open the automatic doors when she tripped and fell. She does not hit her head. She complains of right hip pain and lower back pain worsen her usual chronic back pain. She denied any loss of consciousness, seizure activity. She has not been ill recently. Saturating 92% on room air, afebrile, blood pressure 187/90 improving to 165/88. WBC 9.4, hemoglobin 11.2, serum creatinine 1.17. Chest x-ray without acute process. Lumbar spine CT without acute abnormalities. Pelvis CT demonstrating minimally displaced right femoral subcapital fracture. Orthopedic surgery consulted from the ER. She was given fentanyl 50 mcg IV x1, saturation dropped to 88% on room air was placed on 1 L nasal cannula. She was started on normal saline. Several problems were addressed: #fall #Closed subcapital fracture of neck of right femur POD #6: Right hip pinning Right leg exam benign and neurovascularly intact. Incision c/d/i. She did not recover well after surgery, pain was an issue and she was never be able to work with therapy. After discussion with family, decison was made to proceed with hospice. # HTN Chronic, continue home medication - carvedilol 50 mg BID - clonidine 0.2 mg BID - lasix 20 mg daily - spironolactone 25 mg daily - blood pressures reviewed and remain stable- no changes #Heart failure, type unknown: Chronic, does not appear in acute exacerbation Echo 11/02/2024: LVEF 60-65% with grade I diastolic dysfunction # Insulin dependent diabetes mellitus: - hypoglycemia protocol - POC blood glucose ACHS - home medication - ozempic 2 mg weekly, tresiba 36 units HS, lispro 8 units TIDWM - correct regimen ordered - SSI, started on lantus 28 units (20% home dose) - A1C 9 on 10/31/24 # Major depressive disorder: Evaluated by psychiatry Sertraline increased to 150 mg daily Encourage medication compliance, patient manages her own medications at home. Recommend psychotherapy to address family conflicts and coping strategies Educate patient on importance of med adherence and potential benefits of dose increase Discuss option of restricting visitors at care facility if desired by patient Encourage physical activity and participation in post-operative rehabilitation to facilitate return to care facility Status at Discharge Overall status at discharge: patient is not back to baseline Time Spent with Patient Time attestation: Total time spent providing and/or coordinating discharge services: Time spent: Greater than 30 minutes Exam Narrative: General: female in no acute respiratory distress who is nontoxic appearing, lying semi recumbent in bed. HEENT: Normocephalic. Atraumatic. Extraocular movement intact. Sclera clear and anicteric. No facial asymmetry. Chest: Lungs are clear to auscultation bilaterally. CV: Heart was regular rate and rhythm. Abd: Abdomen was soft. Nontender. Nondistended. Positive bowel sounds. Ext: No clubbing, cyanosis, or edema. Slight swelling to the right hip with clean/dry/and intact dressing. DP pulses bilaterally. Sensation intact. Wiggling toes. Neuro: Patient is alert and oriented x2. Const: General: no acute distress HENMT: Mouth: Yes dry mucous membranes Eyes: Pupils: Equal, round and reactive pupils present Neck: Neck: supple Resp: Effort & Inspection: normal respiratory effort Other: Mild bibasilar crackles Cardio: Rate: regular rate Rhythm: regular rhythm Heart sounds: no gallops, no murmurs and no rubs GI: Inspection: non-distended : General: Yes bladder normal to palpation Bimanual exam- vagina & uterus: bladder normal to palpation Neuro: Cranial nerves: Yes Equal, round and reactive pupils present Other: Motion of the right lower extremity limited by pain at the right hip Extrem: General: no edema DS: Data Data Completed and Pending Labs on day of discharge: Labs from last 24 hours 01/28/25 01/27/25 01/27/25 07:45 20:40 17:00 POC Capillary Glucose 183 H 215 H 286 H Urine Color Urine Appearance Urine pH Ur Specific Wharton Urine Protein Urine Glucose (UA) Urine Ketones Ur Blood (Man) Urine Nitrate Urine Bilirubin Urine Urobilinogen Add Ur Microanalysis Leukocyte Esterase Rfl Urine RBC Urine WBC Ur Squamous Epith Cells Urine Bacteria Urine Casts 01/27/25 01/27/25 11:54 09:34 POC Capillary Glucose 247 H Urine Color Yellow Urine Appearance Clear Urine pH 5.5 Ur Specific [place]arton 1.021 Urine Protein 1+ H Urine Glucose (UA) Negative Urine Ketones Negative Ur Blood (Man) Trace Urine Nitrate Negative Urine Bilirubin Negative Urine Urobilinogen 1.0 Add Ur Microanalysis Reviewed Leukocyte Esterase Rfl 1+ H Urine RBC 3-5 H Urine WBC 0-5 Ur Squamous Epith Cells Occasional Urine Bacteria None seen Urine Casts 3-5 Discharge Plan Discharge Attending physician on discharge: Wang Burch Consulting providers: Clari Romero; Rick Page; Larry Riley Discharging Clinician: Lila Henson Patient Disposition: Hospice - Medical Facility Activity: may shower, no driving and follow weight bearing status Wound Care Instructions: follow printed instructions Discharge Instructions: further med mngmn per hospice Postoperative Hip Fracture Instructions Dr. Rick Page [phone] * Dressing to be changed daily with an island dressing beginning on post op day #2. May stop dressing changes at post op day #14. No sutures/cherrie will need to be removed. Can allow Dermabond to fall off naturally. * Weight bearing: Weight bearing as tolerated. * You may shower with your dressing but do not submerge in a bath tub. * Do not drive or operate machinery until you are released by your surgeon. * Do not walk without a walker for any reason until you are released by your surgeon. * DVT prophylaxis x28 days post op. * Continue to apply ice to the hip intermittently for additional pain relief. Protect your skin with a towel or pillow case. * Continue to follow strict hip fracture precautions. * Please contact our office with any questions/concerns regarding your hip at [phone]. * Follow up appointment instructions indicated below. Patient Instructions: Rivaroxaban (By mouth), Heart Failure (GEN) Patient Language: Liberian Stand Alone Forms: General Discharge Information Follow-up/Referrals: Rick Page MD [Physician, Orthopedics] - Call for Appointment Discharge Medications: New cyclobenzaprine 10 mg Tablet 10 mg PO Q8H PRN (Reason: Muscle Spasm) Qty: 3 0RF sertraline [Zoloft] 50 mg Tablet 150 mg PO HS Qty: 10 0RF Continued simvastatin 10 mg tablet 20 mg PO DAILY spironolactone 25 mg tablet 25 mg PO DAILY clonidine HCl 0.2 mg tablet 0.2 mg PO Q12H Ozempic 1 mg/dose (4 mg/3 mL) pen injector 2 mg SUBCUT WEEKLY Patient Comments: administer on Thursday carvedilol [Coreg] 25 mg tablet 50 mg PO .Q12HR Rx Instructions: must administer with a meal/food melatonin 10 mg capsule 10 mg PO HS PRN (Reason: sleep) omeprazole 20 mg capsule,delayed release(DR/EC) 20 mg PO HS terazosin 2 mg capsule 2 mg PO HS cholecalciferol (vitamin D3) 1,250 mcg (50,000 unit) capsule 1,250 mcg PO .biweekly furosemide [Lasix] 20 mg tablet 20 mg PO QAM Qty: 90 3RF ferrous sulfate [FeroSul] 325 mg (65 mg iron) tablet 325 mg PO DAILY hydrocodone-acetaminophen 5-325 mg tablet 1 tablet PO Q12H Qty: 4 0RF allopurinol 100 mg tablet 50 mg PO DAILY gabapentin 300 mg capsule 300 mg PO TID ropinirole 0.25 mg tablet 0.25 mg PO HS diphenhydramine HCl [Banophen] 25 mg capsule 50 mg PO HS PRN (Reason: Insomnia) Qty: 1 0RF Humalog U-100 Insulin 100 unit/mL cartridge 8 unit subcut TIDWM Qty: 15 0RF insulin degludec [Tresiba FlexTouch U-200] 200 unit/mL (3 mL) insulin pen 36 unit SUBCUT HS Qty: 1 0RF Discontinued sertraline 50 mg tablet 100 mg PO HS Date of admission: 01/20/25 21:59 Primary Care Provider: Erinn,Christine Georges Admitting Provider: Shannan Hector Attending physician on admission: Shannan Hector Condition: Guarded Prognosis Quality VTE Prophylaxis VTE prophylaxis: pharmacologic ordered Hospitalist MIPS Heart Failure (Exclusion) Patient has history of Heart Transplant or Left Ventricular Assistive Device?: No IF YES, STOP HERE Heart Failure (Qualifier) Patient has current or prior documentation of LVEF less than or equal to 40%, or mod/servere depressed LVSF?: No IF NO, STOP HERE
[2025-01-28 08:50] LABS: Hematocrit 28.2 % (37.0-47.0); Hemoglobin 9.0 g/dL (12.0-15.0); Immature Granulocyte Percent A 0.9 % (0-0.5); Lymphocytes Absolute Auto 1.44 K/mm3 (0.9-3.2); Mean Corpuscular HGB Conc 31.9 g/dl (32-36); Mean Corpuscular Hemoglobin 27.6 pg (26-34); Mean Corpuscular Volume 86.5 fl (80-100); Nucleated Red Blood Cells Absolute Auto 0.000 K/mm3 (0.0-0.012); Nucleated Red Blood Cells Perc 0.0 % (0.0-0.2); Platelet Count Result 248 k/mm3 (150-375); Red Blood Count 3.26 M/mm3 (4.2-5.4); White Blood Count 8.6 K/mm3 (4.5-10.0)
[2025-01-28 09:08] VITALS: PULSE 80
[2025-01-28] MEDS: SPIRONOLACTONE 25 MG TABLET PO (09:08)
[2025-01-28] MEDS: FUROSEMIDE 20 MG TABLET PO (09:11)
[2025-01-28] MEDS: GABAPENTIN 300 MG CAPSULE PO (09:11)
[2025-01-28 09:54] LABS: Alanine Aminotransferase 20 U/L (6-35); Albumin Level 3.0 g/dL (3.5-5.1); Alkaline Phosphatase 95 U/L (38-126); Anion Gap 5 mmol/L (4-12); Aspartate Amino Transferase 28 U/L (14-36); Bilirubin,Total 0.5 mg/dL (0.2-1.3); Blood Urea Nitrogen 27 mg/dL (7-17); Calcium 8.2 mg/dL (8.4-10.2); Carbon Dioxide 28 mmol/L (22-30); Chloride 101 mmol/L (98-107); Estimated CRCL calculation 39 ml/min; Estimated Glomerular Filt Rate 54; Glucose 192 mg/dL (65-110); Potassium 4.0 mmol/L (3.4-5.0); Sodium 134 mmol/L (137-145); Total Protein 6.0 g/dL (6.3-8.2)
== END 2025-01-28 11:18 | disposition hospice, inpatient (51) | DRG 480 ==
LOC: ANHED 20:45 → ANH2MED 22:01
PROVIDERS: Nurse Practitioner; Orthopaedic Surgery; Student in an Organized Health Care Education/Training Program; Admitting Provider General Practice; Emergency Provider Emergency Medicine; PCP Nurse Practitioner Family; Visit Provider Nurse Practitioner
PROC: 0QS634Z Reposition Right Upper Femur with Internal Fixation Device, Percutaneous Approach (ICD-10-PCS; principal; 2025-01-22 08:00)
DX: S72.011A Unspecified intracapsular fracture of right femur, initial encounter for closed fracture (principal); J96.01 Acute respiratory failure with hypoxia; I13.0 Hypertensive heart and chronic kidney disease with heart failure and stage 1 through stage 4 chronic kidney disease, or unspecified chronic kidney disease; I69.951 Hemiplegia and hemiparesis following unspecified cerebrovascular disease affecting right dominant side; I50.32 Chronic diastolic (congestive) heart failure; E78.5 Hyperlipidemia, unspecified; K21.9 Gastro-esophageal reflux disease without esophagitis; W01.0XXA Fall on same level from slipping, tripping and stumbling without subsequent striking against object, initial encounter; N18.32 Chronic kidney disease, stage 3b; D63.1 Anemia in chronic kidney disease; E11.22 Type 2 diabetes mellitus with diabetic chronic kidney disease; F32.9 Major depressive disorder, single episode, unspecified; F41.9 Anxiety disorder, unspecified; M54.89 Other dorsalgia; Z66 Do not resuscitate; M19.90 Unspecified osteoarthritis, unspecified site; F10.90 Alcohol use, unspecified, uncomplicated; F12.90 Cannabis use, unspecified, uncomplicated; Z51.5 Encounter for palliative care; Z96.82 Presence of neurostimulator; Z85.828 Personal history of other malignant neoplasm of skin; Z79.4 Long term (current) use of insulin; Z79.85 Long-term (current) use of injectable non-insulin antidiabetic drugs
CPT/HCPCS: 36415; 71045; 72131; 72192; 73502; 80048; 80053; 81001; 82948; 83735; 85025; 85027; 85610; 86850; 86900; 86901; 87086; 93005; 96374; 96375; 97110; 97162; 97165; 97530; 97535; 99199; 99285; J0690; A9270; C1713; J0360; J1171; J1200; J1815; J2003; J2371; J2405; J2704; J3010; J7030; J7120